=== PATIENT | female | born 1980 | race Caucasian/White ===

== ENCOUNTER 2016-08-30 15:57 | Inpatient (IN) ==
[2016-08-30] MEDS ORDERED: 0.9 % Sodium Chloride 1,000 ML IVC ONE (19:39)
[2016-08-30] MEDS ORDERED: Ondansetron 4 MG/2 ML VIAL IVP ONE (19:39)
[2016-08-30 20:00] LABS: Basophils % 0.6 %; Eosinophils # 0.1 K/mcL (0.0-0.6); Eosinophils % 2.8 %; Hematocrit 36.9 % (35.3-44.9); Hemoglobin 12.1 g/dL (11.5-15.4); Immature Granulocytes % 0.4 % (0-4); Immature Platelets 2.2 % (1.1-6.1); Lymphocytes % 41.9 %; Mean Corpuscular HGB Conc 32.8 g/dL (31.6-35.5); Mean Corpuscular Hemoglobin 31.8 pg (28.0-33.3); Mean Corpuscular Volume 96.9 fL (83.0-100.0); Mean Platelet Volume 10.1 fL (9.4-12.4); Monocytes # 0.4 K/mcL (0.0-1.3); Monocytes % 8.5 %; Neutrophils # 2.2 K/mcL (1.6-8.9); Platelet Count 181 K/mcL (140-400); Red Blood Count 3.81 M/mcL (3.82-4.97); Red Cell Distribution Width 12.6 % (11.5-14.5); Segmented Neutrophils % 45.8 %
[2016-08-30 20:13] LABS: Alanine Aminotransferase 7 Units/L (0-55); Albumin 4.1 g/dL (3.5-5.0); Albumin/Globulin Ratio 1.3 (1.1-2.2); Alkaline Phosphatase 87 Units/L (38-126); Aspartate Amino Transferase 11 Units/L (5-34); BUN/Creatinine Ratio 12 (6-26); Bilirubin,Direct 0.1 mg/dL (0.0-0.5); Bilirubin,Indirect 0.2 mg/dL (0.0-1.2); Bilirubin,Total 0.3 mg/dL (0.2-1.2); Blood Urea Nitrogen 14 mg/dL (7-20); Calcium 9.7 mg/dL (8.6-10.8); Carbon Dioxide 17 mEq/L (19-29); Chloride 107 mEq/L (98-109); Globulin 3.2 g/dL (2.4-3.5); Glucose 80 mg/dL (70-99); Lipase 11 Units/L (8-78); Osmolality,Calculated 289 (280-300); Potassium 3.6 mEq/L (3.5-4.5); Sodium 140 mEq/L (136-145); Total Protein 7.3 g/dL (6.0-8.3); eGFR For African Americans > 60 (> 60); eGFR For Non-African Americans 52 (> 60)
[2016-08-30 21:01] LABS: Bilirubin,Urine Large (Negative); Blood,Urine Negative (Negative); Clarity,Urine Cloudy (Clear); Color,Urine Yellow (Yellow); Glucose,Urine (UA) Normal (Normal); Ketones,Urine >=160 mg/dL (Negative); Leukocyte Esterase,Urine Small (Negative); Nitrite,Urine Negative (Negative); PH,Urine 5.5 pH Units (5.0-8.0); Protein,Urine 30 mg/dL (Neg-Trace); Specific Gravity,Urine 1.023 (1.010-1.025); Urobilinogen,Urine Normal (Normal)
[2016-08-30 21:03] LABS: Bacteria,Urine Moderate per hpf (None-Few); Hyaline Casts,Urine None Seen per lpf (None-Few); Squamous Epithelial Cell,Urine Many per lpf (None-Few); WBC,Urine 15-30 per hpf (0-3)
[2016-08-30] MEDS ORDERED: *HR* HYDROcodone/Acet 5/325 mg TABLET PO ONE (22:01)
[2016-08-30] MEDS ORDERED: *HR* Promethazine 25 MG/ML VIAL IVP ONE (22:01)
--- NOTE | 2016-08-30 22:05 | Emergency Department Note ---
Disposition Clinical Impression: Pyelonephritis, Left flank pain UTI (urinary tract infection) Qualifiers: Urinary tract infection type: acute cystitis Hematuria presence: without hematuria Qualified Code(s): N30.00 - Acute cystitis without hematuria Disposition: Home, Self-Care Condition: Good Instructions: Acute Pyelonephritis (ED), Dysuria (ED) Reasons to Return/Additional Instructions: Return if you have worsening pain, or are unable to eat/drink. Prescriptions: Ondansetron ODT [Zofran ODT] 4 mg SL Q6HR PRN #10 tab.rapdis PRN Reason: Nausea Ciprofloxacin [Cipro] 500 mg PO BID #14 tablet Phenazopyridine [Pyridium] 200 mg PO TID #14 tablet Referrals: June Moreno CNP [Primary Care Provider] - Forms: Work/School Release, ED Satisfaction Letter General Adult HPI - General Chief complaint: ED Headache Stated complaint: "upset stomach for 4 days" Time Seen by Provider: 08/30/16 18:45 Source: patient Limitations: no limitations Nursing Notes Reviewed: Yes Vital Signs Reviewed: Yes - History of Present Illness HPI Narrative: 35-year-old female with a past medical history of schizophrenia, bipolar, depression, anxiety. She reports that she has had a few days of suprapubic discomfort, dysuria, pain radiating into her left flank. The pain in her flank was not sudden in onset and has been gradually worsening. She does report having a fever at home and nausea. She denies any prior history of this. Radiation: flank Pain Severity: moderate Pain Scale: 8 Consistency: constant Improves with: nothing Worsens with: other (urination) Associated symptoms: Reports: denies other symptoms Treatments Prior to Arrival: none - Related Data Home Medications Medication Instructions Recorded Confirmed Albuterol Sulfate [Albuterol 2 puff IH Q4H PRN 07/28/15 01/22/16 Inhaler] EPINEPHrine [Epipen JR] 0.15 mg IJ PRN PRN 07/28/15 01/22/16 Loratadine [Claritin] 10 mg PO DAILY 07/28/15 01/22/16 Omeprazole [PriLOSEC] 20 mg PO DAILY 07/28/15 01/22/16 SUMAtriptan Succinate [Imitrex] 100 mg PO DAILY PRN 07/28/15 01/22/16 Verapamil ER (24 HR) [Calan SR] 180 mg PO HS 07/28/15 01/22/16 Acetaminophen [Tylenol] 325 mg PO Q6HR PRN 11/30/15 01/22/16 Amantadine HCl [Amantadine] 100 mg PO BID 11/30/15 01/22/16 Benztropine Mesylate 1 mg PO BID 11/30/15 01/22/16 Ergocalciferol (VITAMIN D2) 1,000 unit PO BID 11/30/15 01/22/16 [Vitamin D2] Hydrochlorothiazide 25 mg PO DAILY 11/30/15 01/22/16 Levothyroxine [Synthroid] 125 mcg PO QAM 11/30/15 01/22/16 Onabotulinumtoxina [Botox] 200 unit IM [id number] 11/30/15 01/22/16 Potassium Chloride 10 meq PO DAILY 11/30/15 01/22/16 Vitamin E 1,000 unit PO DAILY 11/30/15 01/22/16 Citalopram [CeleXA] 20 mg PO DAILY 01/22/16 01/22/16 LORazepam [Ativan] 1 mg PO QID 01/22/16 01/22/16 Ondansetron HCl [Zofran] 4 mg PO Q6H PRN 01/22/16 01/22/16 Quetiapine Fumarate [Seroquel] 600 mg PO HS 01/22/16 01/22/16 Previous Rx's Medication Instructions Recorded Tizanidine HCl [Zanaflex] 4 mg PO Q8H PRN #10 12/03/15 TraZODone 150 mg PO HS tablet 12/03/15 Gabapentin [Neurontin] 900 mg PO TID capsule 01/27/16 Bacitracin/PolymyxinB OINT 1 appl TP BID #1 tube 06/24/16 [Polysporin] HYDROcodone/Acet 5/325 mg [Converse 1 tab PO Q6H PRN #8 tab 06/24/16 5-325 mg] Ciprofloxacin [Cipro] 500 mg PO BID #14 tablet 08/30/16 Ondansetron ODT [Zofran ODT] 4 mg SL Q6HR PRN #10 tab.rapdis 08/30/16 Phenazopyridine [Pyridium] 200 mg PO TID #14 tablet 08/30/16 Allergies Allergy/AdvReac Type Severity Reaction Status Date / Time aripiprazole [From Abilify] Allergy Difficulty Verified 08/30/16 16:10 Breathing aspirin Allergy Difficulty Verified 08/30/16 16:10 Breathing ibuprofen Allergy Difficulty Verified 08/30/16 16:10 Breathing latex Allergy Difficulty Verified 08/30/16 16:10 Breathing metronidazole [From Flagyl] Allergy Difficulty Verified 08/30/16 16:10 Breathing naproxen [From Aleve] Allergy Difficulty Verified 08/30/16 16:10 Breathing Sulfa (Sulfonamide Allergy Vomiting Verified 08/30/16 16:10 Antibiotics) All systems ED: reviewed and negative except as stated. Constitutional: Reports: fever Eyes: Denies: vision change ENT ED: Denies: throat pain Cardiovascular: Denies: chest pain Respiratory: Denies: cough Gastrointestinal: Reports: abdominal pain, nausea. Denies: vomiting, diarrhea Genitourinary: Reports: dysuria Musculoskeletal: Reports: back pain (Left flank) Integumentary: Denies: rash Past Medical History - Past Medical History Medical history: Reports: arthritis, asthma, COPD, GERD, hypertension, migraine , osteoporosis, seizures, thyroid disease, syncope, other Surgical history: Reports: orthopedic, other, sinus surgery (Knee surgery. Adenoidectomy -tonsillectomy.), other Psychiatric history: Reports: anxiety, bipolar, depression, prior suicide attempt, schizophrenia, previous psychiatric hospitalization, other - Social History Smoking Status: Former smoker Smokeless Tobacco Status: No Alcohol use: Reports: none Drug use: Reports: none Physical Exam - General Limitations: no limitations General appearance: alert - Head Head exam: atraumatic - Eye Eye exam: Present: normal appearance - ENT ENT exam: normal exam, normal oropharynx - Neck Neck exam: Present: normal inspection - Respiratory Respiratory exam: Present: normal lung sounds bilaterally. Absent: respiratory distress - Cardiovascular Cardiovascular exam: Present: regular rate, normal rhythm - Abdominal Exam Abdominal exam: Present: soft, tenderness (Suprapubic.) - Extremities Exam Extremities exam: Present: normal inspection - Back Exam Back exam: Present: CVA tenderness (L) - Neurological Exam Neurological exam: Present: alert, oriented X3 - Skin Skin exam: Present: warm, dry Course Course Narrative: As her pain was not sudden in onset I do not feel that this is likely due to a kidney stone. Also most of her pain is suprapubic and she just occasionally has pain in the left flank. She does have a UTI with concern for pyelonephritis due to the left flank pain. I have given her some fluids and given her 1 g of Rocephin. I spoke at length with the patient and family on strict return instructions. She will be discharged home with oral antibiotics and symptomatic management. She is been afebrile while she has been here with mild tachycardia at 100. Her creatinine is mildly increased from baseline which is likely due to her nausea and decreased oral intake. She is nontoxic appearing. Vital Signs Temperature 97.6 F 08/30/16 16:03 Pulse Rate 100 08/30/16 16:03 Respiratory Rate 17 08/30/16 16:03 Blood Pressure 112/70 08/30/16 16:03 O2 Sat by Pulse Oximetry 96 08/30/16 16:03 Temperature 97.6 F 08/30/16 16:03 Pulse Rate 100 08/30/16 16:03 Respiratory Rate 17 08/30/16 16:03 Blood Pressure 112/70 08/30/16 16:03 O2 Sat by Pulse Oximetry 96 08/30/16 16:03 Oxygen Delivery Oxygen Delivery Room Air Medical Decision Making - Medical Records Medical records reviewed: Yes I reviewed the patient's medical records. - Lab Data Lab results reviewed: Yes I reviewed the patient's lab results. Result diagrams: 08/30/16 19:49 08/30/16 19:49 Lab Results 08/30/16 08/30/16 08/30/16 Range/Units 19:49 19:49 20:51 WBC 4.7 (4.3-11.1) K/mcL RBC 3.81 L (3.82-4.97) M/mcL Hgb 12.1 (11.5-15.4) g/dL Hct 36.9 (35.3-44.9) % MCV 96.9 (83.0-100.0) fL MCH 31.8 (28.0-33.3) pg MCHC 32.8 (31.6-35.5) g/dL RDW 12.6 (11.5-14.5) % Plt Count 181 (140-400) K/mcL MPV 10.1 (9.4-12.4) fL Immature Gran % 0.4 (0-4) % Seg Neutrophils % 45.8 % Lymphocytes % 41.9 % Monocytes % 8.5 % Eosinophils % 2.8 % Basophils % 0.6 % Neutrophils # 2.2 (1.6-8.9) K/mcL Lymphocytes # 2.0 (0.6-4.6) K/mcL Monocytes # 0.4 (0.0-1.3) K/mcL Eosinophils # 0.1 (0.0-0.6) K/mcL Basophils # 0.0 (0.0-0.2) K/mcL Immature Plt Fraction 2.2 (1.1-6.1) % Sodium 140 (136-145) mEq/L Potassium 3.6 (3.5-4.5) mEq/L Chloride 107 (98-109) mEq/L Carbon Dioxide 17 L (19-29) mEq/L BUN 14 (7-20) mg/dL Creatinine 1.17 H (0.57-1.11) mg/dL Est GFR ( Amer) > 60 (> 60) Est GFR (Non-Af Amer) 52 L (> 60) BUN/Creatinine Ratio 12 (6-26) Glucose 80 (70-99) mg/dL Calculated Osmolality 289 (280-300) Calcium 9.7 (8.6-10.8) mg/dL Total Bilirubin 0.3 (0.2-1.2) mg/dL Direct Bilirubin 0.1 (0.0-0.5) mg/dL Indirect Bilirubin 0.2 (0.0-1.2) mg/dL AST 11 (5-34) Units/L ALT 7 (0-55) Units/L Alkaline Phosphatase 87 (38-126) Units/L Serum Total Protein 7.3 (6.0-8.3) g/dL Albumin 4.1 (3.5-5.0) g/dL Globulin 3.2 (2.4-3.5) g/dL Albumin/Globulin Ratio 1.3 (1.1-2.2) Lipase 11 (8-78) Units/L Urine Color Yellow (Yellow) Urine Clarity Cloudy A (Clear) Urine pH 5.5 (5.0-8.0) pH Units Ur Specific [place] 1.023 (1.010-1.025) Urine Protein 30 H (Neg-Trace) mg/dL Urine Glucose (UA) Normal (Normal) mg/dL Urine Ketones >=160 H (Negative) mg/dL Urine Blood Negative (Negative) Urine Nitrite Negative (Negative) Urine Bilirubin Large H (Negative) Urine Urobilinogen Normal (Normal) mg/dL Ur Leukocyte Esterase Small H (Negative) Urine Microscopic RBC 5-15 H (0-3) per hpf Urine Microscopic WBC 15-30 H (0-3) per hpf Ur Squamous Epith Cells Many H (None-Few) per lpf Urine Bacteria Moderate H (None-Few) per hpf Hyaline Casts None Seen (None-Few) per lpf Ur Culture Indicated? YES A (NO) Urine Test (Negative) 08/30/16 Range/Units 20:51 WBC (4.3-11.1) K/mcL RBC (3.82-4.97) M/mcL Hgb (11.5-15.4) g/dL Hct (35.3-44.9) % MCV (83.0-100.0) fL MCH (28.0-33.3) pg MCHC (31.6-35.5) g/dL RDW (11.5-14.5) % Plt Count (140-400) K/mcL MPV (9.4-12.4) fL Immature Gran % (0-4) % Seg Neutrophils % % Lymphocytes % % Monocytes % % Eosinophils % % Basophils % % Neutrophils # (1.6-8.9) K/mcL Lymphocytes # (0.6-4.6) K/mcL Monocytes # (0.0-1.3) K/mcL Eosinophils # (0.0-0.6) K/mcL Basophils # (0.0-0.2) K/mcL Immature Plt Fraction (1.1-6.1) % Sodium (136-145) mEq/L Potassium (3.5-4.5) mEq/L Chloride (98-109) mEq/L Carbon Dioxide (19-29) mEq/L BUN (7-20) mg/dL Creatinine (0.57-1.11) mg/dL Est GFR ( Amer) (> 60) Est GFR (Non-Af Amer) (> 60) BUN/Creatinine Ratio (6-26) Glucose (70-99) mg/dL Calculated Osmolality (280-300) Calcium (8.6-10.8) mg/dL Total Bilirubin (0.2-1.2) mg/dL Direct Bilirubin (0.0-0.5) mg/dL Indirect Bilirubin (0.0-1.2) mg/dL AST (5-34) Units/L ALT (0-55) Units/L Alkaline Phosphatase (38-126) Units/L Serum Total Protein (6.0-8.3) g/dL Albumin (3.5-5.0) g/dL Globulin (2.4-3.5) g/dL Albumin/Globulin Ratio (1.1-2.2) Lipase (8-78) Units/L Urine Color (Yellow) Urine Clarity (Clear) Urine pH (5.0-8.0) pH Units Ur Specific [place] (1.010-1.025) Urine Protein (Neg-Trace) mg/dL Urine Glucose (UA) (Normal) mg/dL Urine Ketones (Negative) mg/dL Urine Blood (Negative) Urine Nitrite (Negative) Urine Bilirubin (Negative) Urine Urobilinogen (Normal) mg/dL Ur Leukocyte Esterase (Negative) Urine Microscopic RBC (0-3) per hpf Urine Microscopic WBC (0-3) per hpf Ur Squamous Epith Cells (None-Few) per lpf Urine Bacteria (None-Few) per hpf Hyaline Casts (None-Few) per lpf Ur Culture Indicated? (NO) Urine Test Negative (Negative) Attestation Statement - Attestation Attestation: I, Rajiv Rowland MD, personally performed a history and physical exam of the patient and discussed their management with the resident. I reviewed the resident's note and agree with the documented findings, medical decision making , and plan of care. 35-year-old female presents to the emergency department with a complaint of dysuria and suprapubic abdominal pain which radiates around to the left flank. Symptoms started 4 days ago. She complains of nausea but no vomiting. No fever. No gross hematuria. On examination patient is a well-developed well-nourished female in no acute distress. She is alert and oriented 3. There is no cyanosis or diaphoresis. Breath sounds are clear and equal bilaterally. Heart regular rate and rhythm. Abdomen soft with normal bowel sounds. There is mild to moderate suprapubic tenderness and mild left CVA tenderness. Labs reviewed. Urinalysis consistent with a urinary tract infection. Patient received a dose of IV Rocephin here in the emergency department and will be treated with Cipro as an outpatient.
[2016-10-07] MEDS ORDERED: *HR* LORazepam 1 MG TABLET PO PRN (19:34)
[2016-10-07] MEDS ORDERED: Acetaminophen 325 MG TABLET PO PRN (19:34)
[2016-10-07] MEDS ORDERED: traZODone 50 MG TABLET PO PRN ×2 (19:34→19:45)
[2016-10-07] MEDS ORDERED: Haloperidol Lactate 5 MG/ML VIAL IM PRN (19:34)
[2016-10-07] MEDS ORDERED: *HR* LORazepam 2 MG/ML VIAL IM PRN (19:34)
[2016-10-07] MEDS ORDERED: MOM Conc 10 ML UD.LIQ PO PRN (19:34)
[2016-10-07] MEDS ORDERED: Mag Hydrox/Al Hydrox/Simeth 30 ML UDC PO PRN (19:34)
[2016-10-07] MEDS ORDERED: Gabapentin 300 MG CAPSULE PO SCH (21:00)
[2016-10-07] MEDS: Topiramate 100 MG TABLET PO SCH (21:17)
[2016-10-07] MEDS: Gabapentin 400 MG CAPSULE PO SCH (21:17)
[2016-10-07] MEDS: Budesonide/Formoterol 160/4.5 MDI IH SCH (21:29)
[2016-10-07] MEDS: hydrOXYzine pamoate 25 MG CAPSULE PO PRN (22:02)
[2016-10-08] MEDS: Topiramate 100 MG TABLET PO SCH ×3 (09:07→21:25)
[2016-10-08] MEDS: Gabapentin 400 MG CAPSULE PO SCH ×3 (09:08→21:23)
[2016-10-08] MEDS: hydroCHLOROthiazide 25 MG TABLET PO SCH (09:08)
[2016-10-08] MEDS: Verapamil ER (24 HR) 120 MG TABLET.ER PO SCH (09:08)
[2016-10-08] MEDS: Budesonide/Formoterol 160/4.5 MDI IH SCH ×2 (09:09→21:29)
[2016-10-08] MEDS: hydrOXYzine pamoate 25 MG CAPSULE PO PRN (12:40)
--- NOTE | 2016-10-08 15:14 | Psychiatry History & Physical ---
Date of Encounter: 10/08/16 Time of Encounter: 14:40 History of Present Illness Patient Stated Chief Complaint: "I feel nervous." Medicare Admission Attestation: For traditional Medicare patients the provided hospital inpatient services are reasonable and necessary and in the case of services not specified as inpatient -only under 42 CFR 419.22 (n), that they are appropriately provided as inpatient services in accordance 42 CFR 412.3. For Critical Access Hospital the patient may reasonably be expected to be discharged or transferred to a hospital within 96 hours after admission to the Critical Access Hospital. Admitted From: Intrahospital Transfer History of Present Illness: Ms. Mendoza is a 36 year old female with schizoaffective disorder bipolar type who was initially admitted here on 1A for depression and anxiety, apparently not taking her meds as prescribed. She then became physically ill and was admitted to the medical floor. There she was treated for multiple issues including a urinary tract infection and possible pseudoseizures. She has been since transferred back to a for further psychiatric stabilization. Today she reports she feels weak. She denies any chest pain, shortness of breath, dizziness. She denies any seizure activity that she is aware of. She does report anxiety symptoms. A lot of her sedating medications were decreased while she was on the medical floor to avoid oversedation. She is not sleeping as well as she was before. She does have a history of auditory and visual hallucinations and reports that she has a total of 5 or so admissions in the past for psychiatric reasons. Today she does feel depressed and anxious. No active suicidal thoughts at the time of the interview but she does report occasional suicidal ideation intermittently throughout the day. Past Med Surg Social Fam HX - Past Medical History Medical history: arthritis, asthma, COPD, GERD, hypertension, migraine, osteoporosis, seizures, thyroid disease, syncope, other - Past Psychiatric History Psychiatric history: Reports: previous psychiatric hospitalization, other ( Schizoaffective disorder bipolar type.) Past psychiatric history details: Patient reports multiple psychiatric admissions in the past. She does have schizoaffective disorder and was seen at the [facility] until recently. The doctor she was supposed to see at the counseling center left the practice. Family psychiatric history: No Family History of Suicide: Unknown - Past Surgical History Surgical History: orthopedic, other, sinus surgery (Knee surgery. Adenoidectomy -tonsillectomy.), other - Social History Smoking Status: Former smoker Smokeless Tobacco Status: No Alcohol use: none Drug use: none - Family History Mother Daughter Family Member Ethnicity: Non- Mother Hx Family Respiratory Disorders: Yes Hx Family Cancer: Yes Medications & Allergies Albuterol Sulfate [Albuterol Inhaler] 2 puff IH Q4H PRN 07/28/15 [History] Omeprazole [PriLOSEC] 20 mg PO DAILY 07/28/15 [History] Amantadine HCl [Amantadine] 100 mg PO BID 11/30/15 [History] Hydrochlorothiazide 25 mg PO DAILY 11/30/15 [History] Levothyroxine [Synthroid] 125 mcg PO QAM 11/30/15 [History] Potassium Chloride 10 meq PO DAILY 11/30/15 [History] Vitamin E 1,000 unit PO DAILY 11/30/15 [History] Budesonide/Formoterol 160/4.5 [Symbicort 160/4.5] 2 puff IH BIDR 10/03/16 [ History] Escitalopram [Lexapro] 20 mg PO DAILY 10/03/16 [History] Gabapentin [Neurontin] 1,200 mg PO TID 10/03/16 [History] Trazodone HCl 150 - 300 mg PO HS PRN 10/03/16 [History] Verapamil ER (24 HR) [Calan SR] 120 mg PO DAILY 10/03/16 [History] ClonazePAM [Klonopin] 0.5 mg PO BID PRN #10 tablet 10/07/16 [Rx] Nitrofurantoin [Macrodantin] 50 mg PO Q6HR #28 capsule 10/07/16 [Rx] Phenazopyridine HCl [Pyridium] 200 mg PO TIDAC #15 tab 10/07/16 [Rx] Quetiapine Fumarate [Seroquel] 400 mg PO HS #28 tablet 10/07/16 [Rx] Topiramate [Topamax] 100 mg PO TID #90 tablet 10/07/16 [Rx] Allergies aripiprazole [From Abilify] Allergy (Verified 08/30/16 16:10) Difficulty Breathing aspirin Allergy (Verified 08/30/16 16:10) Difficulty Breathing ibuprofen Allergy (Verified 08/30/16 16:10) Difficulty Breathing latex Allergy (Verified 08/30/16 16:10) Difficulty Breathing metronidazole [From Flagyl] Allergy (Verified 08/30/16 16:10) Difficulty Breathing naproxen [From Aleve] Allergy (Verified 08/30/16 16:10) Difficulty Breathing Sulfa (Sulfonamide Antibiotics) Allergy (Verified 08/30/16 16:10) Vomiting Review of Systems Gastrointestinal: Reports: nausea Genitourinary female: Reports: frequency Psychiatric: Reports: depression, anxiety, abnormal sleep pattern, suicidal ideation, hopelessness, mood swings Mental Status Exam Patient orientation: Yes Person, Yes Place Level of alertness: Alert Patient appearance: Unkempt Behavior: cooperative, anxious Psychomotor activity: Slowed Eye contact: Minimal Contact Mood description: Anxious Affect description: blunted Speech pattern: Normal rate, Normal rhythm, Normal tone Speech volume: Normal Thought process: [place] Thought content: Yes Suicidal ideation ([place]) Perceptual disturbances: No Reacting to internal stimuli, No Auditory hallucinations, No Visual hallucinations Attention span: Capable of Focused Attention Memory description: Grossly Intact Patient reliability: Questionable Historian Intelligence estimate: Average Judgment: Limited Insight: Minimal Exam - Neurological Neurological exam IM: Present: CN II-XII intact Results - Vital Signs Vital signs: Temp Pulse Resp BP Pulse Ox 98.8 F 124 18 111/73 96 10/08/16 09:00 10/08/16 09:00 10/08/16 09:00 10/08/16 09:00 08/30/16 16:03 - Labs Labs: Laboratory Last Values WBC 4.7 K/mcL (4.3-11.1) 08/30/16 19:49 RBC 3.81 M/mcL (3.82-4.97) L 08/30/16 19:49 Hgb 12.1 g/dL (11.5-15.4) 08/30/16 19:49 Hct 36.9 % (35.3-44.9) 08/30/16 19:49 MCV 96.9 fL (83.0-100.0) 08/30/16 19:49 MCH 31.8 pg (28.0-33.3) 08/30/16 19:49 MCHC 32.8 g/dL (31.6-35.5) 08/30/16 19:49 RDW 12.6 % (11.5-14.5) 08/30/16 19:49 Plt Count 181 K/mcL (140-400) 08/30/16 19:49 MPV 10.1 fL (9.4-12.4) 08/30/16 19:49 Immature Gran % 0.4 % (0-4) 08/30/16 19:49 Seg Neutrophils % 45.8 % 08/30/16 19:49 Lymphocytes % 41.9 % 08/30/16 19:49 Monocytes % 8.5 % 08/30/16 19:49 Eosinophils % 2.8 % 08/30/16 19:49 Basophils % 0.6 % 08/30/16 19:49 Neutrophils # 2.2 K/mcL (1.6-8.9) 08/30/16 19:49 Lymphocytes # 2.0 K/mcL (0.6-4.6) 08/30/16 19:49 Monocytes # 0.4 K/mcL (0.0-1.3) 08/30/16 19:49 Eosinophils # 0.1 K/mcL (0.0-0.6) 08/30/16 19:49 Basophils # 0.0 K/mcL (0.0-0.2) 08/30/16 19:49 Immature Plt Fraction 2.2 % (1.1-6.1) 08/30/16 19:49 Sodium 140 mEq/L (136-145) 08/30/16 19:49 Potassium 3.6 mEq/L (3.5-4.5) 08/30/16 19:49 Chloride 107 mEq/L (98-109) 08/30/16 19:49 Carbon Dioxide 17 mEq/L (19-29) L 08/30/16 19:49 BUN 14 mg/dL (7-20) 08/30/16 19:49 Creatinine 1.17 mg/dL (0.57-1.11) H 08/30/16 19:49 Est GFR ( Amer) > 60 (> 60) 08/30/16 19:49 Est GFR (Non-Af Amer) 52 (> 60) L 08/30/16 19:49 BUN/Creatinine Ratio 12 (6-26) 08/30/16 19:49 Glucose 80 mg/dL (70-99) 08/30/16 19:49 Calculated Osmolality 289 (280-300) 08/30/16 19:49 Calcium 9.7 mg/dL (8.6-10.8) 08/30/16 19:49 Total Bilirubin 0.3 mg/dL (0.2-1.2) 08/30/16 19:49 Direct Bilirubin 0.1 mg/dL (0.0-0.5) 08/30/16 19:49 Indirect Bilirubin 0.2 mg/dL (0.0-1.2) 08/30/16 19:49 AST 11 Units/L (5-34) 08/30/16 19:49 ALT 7 Units/L (0-55) 08/30/16 19:49 Alkaline Phosphatase 87 Units/L (38-126) 08/30/16 19:49 Serum Total Protein 7.3 g/dL (6.0-8.3) 08/30/16 19:49 Albumin 4.1 g/dL (3.5-5.0) 08/30/16 19:49 Globulin 3.2 g/dL (2.4-3.5) 08/30/16 19:49 Albumin/Globulin Ratio 1.3 (1.1-2.2) 08/30/16 19:49 Lipase 11 Units/L (8-78) 08/30/16 19:49 Urine Color Yellow (Yellow) 08/30/16 20:51 Urine Clarity Cloudy (Clear) A 08/30/16 20:51 Urine pH 5.5 pH Units (5.0-8.0) 08/30/16 20:51 Ur Specific [place] 1.023 (1.010-1.025) 08/30/16 20:51 Urine Protein 30 mg/dL (Neg-Trace) H 08/30/16 20:51 Urine Glucose (UA) Normal mg/dL (Normal) 08/30/16 20:51 Urine Ketones >=160 mg/dL (Negative) H 08/30/16 20:51 Urine Blood Negative (Negative) 08/30/16 20:51 Urine Nitrite Negative (Negative) 08/30/16 20:51 Urine Bilirubin Large (Negative) H 08/30/16 20:51 Urine Urobilinogen Normal mg/dL (Normal) 08/30/16 20:51 Ur Leukocyte Esterase Small (Negative) H 08/30/16 20:51 Urine Microscopic RBC 5-15 per hpf (0-3) H 08/30/16 20:51 Urine Microscopic WBC 15-30 per hpf (0-3) H 08/30/16 20:51 Ur Squamous Epith Cells Many per lpf (None-Few) H 08/30/16 20:51 Urine Bacteria Moderate per hpf (None-Few) H 08/30/16 20:51 Hyaline Casts None Seen per lpf (None-Few) 08/30/16 20:51 Ur Culture Indicated? YES (NO) A 08/30/16 20:51 Urine Test Negative (Negative) 08/30/16 20:51 Assessment and Plan (1) Schizoaffective disorder, bipolar type Current visit: No Status: Chronic Plan: Admit inpatient for safety and stabilization, Close observation, Suicide Precautions per unit protocol, Encourage participation in unit milieu, Group Therapy, Monitor sleep, Monitor appetite Additional Plan: We will restart meds as they were changed up on the medical floor. Monitor patient in we will titrate further as needed. Encouraged patient to participate in therapeutic milieu. Previous admissions and psychiatric consultation notes reviewed today. Outpatient records reviewed as well. Patient's outpatient provider was giving patient meds including gabapentin and Klonopin for her mood and anxiety prior to her admission. Risks, benefits, side effects, alternatives discussed w/pt: Yes Patient agreeable to treatment: Yes Plans for Post Hospital Care: Home Estimated Length of Stay (Days): 3 (2) Anxiety Current visit: Yes Status: Acute Plan: Admit inpatient for safety and stabilization, Close observation, Suicide Precautions per unit protocol, Encourage participation in unit milieu, Group Therapy, Monitor sleep, Monitor appetite Additional Plan: Continue Klonopin 0.5 mg by mouth prn. Encourage positive coping strategies. Risks, benefits, side effects, alternatives discussed w/pt: Yes Patient agreeable to treatment: Yes (3) UTI (urinary tract infection) Current visit: No Status: Acute Plan: Close observation Additional Plan: Continue antibiotics for urinary tract infection. Patient reports some frequency but otherwise symptoms improving. Risks, benefits, side effects, alternatives discussed w/pt: Yes Patient agreeable to treatment: Yes Qualifiers: Urinary tract infection type: site unspecified Hematuria presence: without hematuria Qualified Code(s): N39.0 - Urinary tract infection, site not specified
[2016-10-08] MEDS ORDERED: traZODone 50 MG TABLET PO PRN (15:28)
[2016-10-08] MEDS: clonazePAM 0.5 MG TABLET PO PRN ×2 (16:44→21:24)
[2016-10-09] MEDS: Gabapentin 400 MG CAPSULE PO SCH ×3 (09:38→21:34)
[2016-10-09] MEDS: hydroCHLOROthiazide 25 MG TABLET PO SCH (09:40)
[2016-10-09] MEDS: Verapamil ER (24 HR) 120 MG TABLET.ER PO SCH (09:40)
[2016-10-09] MEDS: Topiramate 100 MG TABLET PO SCH ×3 (09:44→21:34)
[2016-10-09] MEDS: Budesonide/Formoterol 160/4.5 MDI IH SCH ×2 (11:26→21:35)
[2016-10-09] MEDS: clonazePAM 0.5 MG TABLET PO PRN (12:20)
--- NOTE | 2016-10-09 14:05 | Psychiatry Progress Note ---
Date of Encounter: 10/09/16 Time of Encounter: 13:50 Subjective Interval history: Patient seen today for follow-up. She is out in the day room for today and is interacting with staff and playing cards and with peers. She reports she is feeling a little bit better physically since we restarted the Klonopin and she is taking it twice a day. Patient was not aware that this was available for her and it has helped her tremors decreased. She is not sleeping as well since we decreased her Seroquel. She will take her second dose of Klonopin at bedtime to see if this helps. Otherwise mood is slightly improved. Her father will visit today. She denies auditory or visual hallucinations today. Review of Systems Genitourinary female: Denies: urgency, dysuria, frequency, hematuria Psychiatric: Reports: anxiety, abnormal sleep pattern, mood swings. Denies: suicidal ideation Objective: Exam Patient orientation: Yes Person, Yes Place Level of alertness: Alert Patient appearance: Unkempt Behavior: cooperative, anxious Psychomotor activity: Slowed Eye contact: Minimal Contact Mood description: Anxious Affect description: flat Speech pattern: Normal rate, Normal rhythm, Normal tone Speech volume: Normal Thought process: [place] Thought content: No Suicidal ideation, No Homicidal ideation Perceptual disturbances: No Reacting to internal stimuli, No Auditory hallucinations, No Visual hallucinations Judgment: Limited Insight: Minimal Results - Vital Signs Vital Signs: Temp Pulse Resp BP Pulse Ox 97.4 F L 76 16 98/58 96 10/09/16 08:32 10/09/16 08:32 10/09/16 08:32 10/09/16 08:32 08/30/16 16:03 Assessment and Plan (1) Schizoaffective disorder, bipolar type Current visit: No Status: Chronic Plan: Continue hospitalization, Close observation, Suicide Precautions per unit protocol, Encourage participation in unit milieu, Group Therapy, Monitor sleep, Monitor appetite Additional Plan: We will continue lower doses of medications. Patient feels that her mood is improving slowly. Risks, benefits, side effects, alternatives discussed w/pt: Yes Patient agreeable to treatment: Yes (2) Anxiety Current visit: Yes Status: Acute Plan: Continue hospitalization, Close observation, Suicide Precautions per unit protocol, Encourage participation in unit milieu, Group Therapy, Monitor sleep, Monitor appetite Additional Plan: We will schedule Klonopin 0.5 mg by mouth twice a day. This has been helping patient with tremor and also may help with her sleep. Continue to monitor. Risks, benefits, side effects, alternatives discussed w/pt: Yes Patient agreeable to treatment: Yes (3) UTI (urinary tract infection) Current visit: No Status: Acute Plan: Continue hospitalization, Close observation Additional Plan: Patient denies hesitancy or frequency today. Risks, benefits, side effects, alternatives discussed w/pt: Yes Patient agreeable to treatment: Yes Qualifiers: Urinary tract infection type: site unspecified Hematuria presence: without hematuria Qualified Code(s): N39.0 - Urinary tract infection, site not specified Consult Discharge Plan - Plan Referrals: June Moreno, RELAY TESTER HELPER [Primary Care Provider] -
[2016-10-09] MEDS: clonazePAM 0.5 MG TABLET PO SCH (21:33)
[2016-10-10] MEDS: Budesonide/Formoterol 160/4.5 MDI IH SCH ×2 (09:11→23:25)
[2016-10-10] MEDS: Gabapentin 400 MG CAPSULE PO SCH ×3 (09:12→20:51)
[2016-10-10] MEDS: hydroCHLOROthiazide 25 MG TABLET PO SCH (09:12)
[2016-10-10] MEDS: Verapamil ER (24 HR) 120 MG TABLET.ER PO SCH (09:12)
[2016-10-10] MEDS: clonazePAM 0.5 MG TABLET PO SCH ×2 (09:13→20:51)
[2016-10-10] MEDS: Topiramate 100 MG TABLET PO SCH ×3 (09:13→20:51)
--- NOTE | 2016-10-10 12:46 | Psychiatry Progress Note ---
Date of Encounter: 10/10/16 Time of Encounter: 12:47 Subjective Interval history: Patient is seen for follow-up. I reviewed recent notes for readmission and nursing notes, medications and labs. Patient is reported to do much better she is not lethargic, her sleep and appetite improved and she is not displaying excessive shaking or tremors. She is responding well to recent medication changes and able to express herself appropriately and seemed to have improved mood and affect. She denies any suicidal ideation. I discussed with his the treatment team the need to establish medication service to improve patient compliance by using prepackaged medication or pillbox. Review of Systems Psychiatric: Reports: anxiety, abnormal sleep pattern, mood swings. Denies: suicidal ideation Objective: Exam Patient orientation: Yes Person, Yes Place Level of alertness: Alert Patient appearance: Unkempt Behavior: calm, cooperative, anxious Psychomotor activity: Slowed Eye contact: Minimal Contact Mood description: Anxious Affect description: congruent with mood, constricted, flat Speech pattern: Normal rate, Normal rhythm, Normal tone, Limited Speech volume: Normal Thought process: Logical, Goal Oriented, [place] Thought content: No Suicidal ideation, No Homicidal ideation Perceptual disturbances: No Reacting to internal stimuli, No Auditory hallucinations, No Visual hallucinations Judgment: Limited Insight: Minimal Results - Vital Signs Vital Signs: Temp Pulse Resp BP Pulse Ox 97.8 F 96 18 102/67 96 10/10/16 08:44 10/10/16 08:44 10/10/16 08:44 10/10/16 08:44 08/30/16 16:03 Assessment and Plan (1) Schizoaffective disorder, bipolar type Current visit: Yes Status: Acute Plan: Continue hospitalization, Close observation, Suicide Precautions per unit protocol, Encourage participation in unit milieu, Group Therapy, Monitor sleep, Monitor appetite Risks, benefits, side effects, alternatives discussed w/pt: Yes Patient agreeable to treatment: Yes Consult Discharge Plan - Plan Referrals: Patrcie Bradley [facility] [Outside] - 11/08/16 10:30 am (The above appointment is with rory psychiatric prescriber. )
--- NOTE | 2016-10-11 09:44 | Discharge Summary ---
Date of Encounter: 10/11/16 Time of Encounter: 09:45 Diagnosis - Discharge Diagnosis (1) Schizoaffective disorder, bipolar type Status: Acute Medications - Discharge Medications Prescriptions: Amantadine [Symmetrel] 100 mg PO BID #60 capsule Phenazopyridine HCl [Pyridium] 200 mg PO TIDAC #15 tab TraZODone 200 mg PO HS PRN #60 tablet PRN Reason: Sleep Albuterol Sulfate [Albuterol Inhaler] 2 puff IH Q4H PRN 07/28/15 [History] Omeprazole [PriLOSEC] 20 mg PO DAILY 07/28/15 [History] Hydrochlorothiazide 25 mg PO DAILY 11/30/15 [History] Levothyroxine [Synthroid] 125 mcg PO QAM 11/30/15 [History] Potassium Chloride 10 meq PO DAILY 11/30/15 [History] Vitamin E 1,000 unit PO DAILY 11/30/15 [History] Budesonide/Formoterol 160/4.5 [Symbicort 160/4.5] 2 puff IH BIDR 10/03/16 [ History] Escitalopram [Lexapro] 20 mg PO DAILY 10/03/16 [History] Gabapentin [Neurontin] 1,200 mg PO TID 10/03/16 [History] Verapamil ER (24 HR) [Calan SR] 120 mg PO DAILY 10/03/16 [History] ClonazePAM [Klonopin] 0.5 mg PO BID PRN #10 tablet 10/07/16 [Rx] Nitrofurantoin [Macrodantin] 50 mg PO Q6HR #28 capsule 10/07/16 [Rx] Quetiapine Fumarate [Seroquel] 400 mg PO HS #28 tablet 10/07/16 [Rx] Topiramate [Topamax] 100 mg PO TID #90 tablet 10/07/16 [Rx] Amantadine [Symmetrel] 100 mg PO BID #60 capsule 10/11/16 [Rx] Phenazopyridine HCl [Pyridium] 200 mg PO TIDAC #15 tab 10/11/16 [Rx] TraZODone 200 mg PO HS PRN #60 tablet 10/11/16 [Rx] Allergies aripiprazole [From Tamifelipe] Allergy (Verified 08/30/16 16:10) Difficulty Breathing aspirin Allergy (Verified 08/30/16 16:10) Difficulty Breathing ibuprofen Allergy (Verified 08/30/16 16:10) Difficulty Breathing latex Allergy (Verified 08/30/16 16:10) Difficulty Breathing metronidazole [From Flagyl] Allergy (Verified 08/30/16 16:10) Difficulty Breathing naproxen [From Aleve] Allergy (Verified 08/30/16 16:10) Difficulty Breathing Sulfa (Sulfonamide Antibiotics) Allergy (Verified 08/30/16 16:10) Vomiting Provider Date of admission: 10/07/16 19:01 Primary care physician: June Moreno, Consults: 10/07/16 19:53 Consult to Hospitalist [CONS] Routine Consulting Provider: Hospitalist Saadia Reason for Consult: followup for medical while on psychiatric unit Time Notified: 20:00 Call Completed: No Discharging clinician: Lon Boss Assessment and Plan - Patient/Caregiver Discharge Instructions Activity: resume usual activities as tolerated Diet: regular diet - Follow up Plan Follow up with: Patrice Bradley [facility] [Outside] - 10/13/16 11:00 am (The above appointment is with Lauren Tapia for counseling. you will also see Cordell Agustin psychiatric prescriber, on 11/08/2016 at 10:30am. ) Functional capacity at discharge: independent ambulation Overall status at discharge: Stable Disposition: Home, Self-Care Hospital Course Hospital course: Ms. Mendoza is a 36 year old female who was readmitted to behavioral health after medical stabilization of urinary tract infection and dehydration. For details of admission please see H&P On the units she was continued on her modified medication list, she showed significant improvement in her sleep and appetite she was not presenting any tremors or shaking she participated in groups and activities and was interacting with peers and staff appropriately. She denied any suicidal ideation and she was anxious to go home. Discharge planning by school social worker was completed including arrangements to provide prepackaged daily medication to improve the patient's compliance. Prior to discharge patient was medically stable, tolerating medication without side effects and denied any suicidal thoughts. And anxious to be discharged. - Time Spent with Patient Total time spent providing and/or coordinating discharge services: Greater than 30 minutes Quality - Multiple Antipsychotics Patient discharged on 2 or more antipsychotic medications: No Procedures - Procedures Procedures: Medication Management, Crisis Stabilization, Supportive Therapy, Group Therapy, Psychoeducational Therapy Mental Status Exam - Mental Status Exam Patient orientation: Yes Person, Yes Place Level of alertness: Alert Patient appearance: Appropriate, Well Groomed Behavior: calm, cooperative, anxious Psychomotor activity: Normal Eye contact: Maintains Eye Contact Mood description: Anxious Affect description: congruent with mood, flat Speech pattern: Normal rate, Normal rhythm, Normal tone, Limited Speech Volume: Normal Thought process: Intact, Logical, Linear, Goal Oriented Thought Content: No Suicidal ideation, No Homicidal ideation Perceptual Disturbances: No Reacting to internal stimuli, No Auditory hallucinations, No Visual hallucinations Judgment: Limited Insight: Minimal
[2016-10-11 10:05] VITALS: BP 99/71
[2016-10-11] MEDS: Gabapentin 400 MG CAPSULE PO SCH (10:16)
[2016-10-11] MEDS: clonazePAM 0.5 MG TABLET PO SCH (10:16)
[2016-10-11] MEDS: Verapamil ER (24 HR) 120 MG TABLET.ER PO SCH (10:17)
[2016-10-11] MEDS: Topiramate 100 MG TABLET PO SCH (10:17)
[2016-10-11] MEDS: hydroCHLOROthiazide 25 MG TABLET PO SCH (10:17)
[2016-10-11] MEDS: Budesonide/Formoterol 160/4.5 MDI IH SCH (10:18)
== END 2016-10-11 11:25 | disposition home or self-care (01) | DRG 885 ==
LOC: EMEROO 15:57 → 1ANU 10-07 19:01
PROVIDERS: ADMIT Psychiatry & Neurology Psychiatry; ATTEND Psychiatry & Neurology Psychiatry

== ENCOUNTER 2016-10-02 12:14 | Inpatient (IN) ==
--- NOTE | 2016-10-02 12:26 | Emergency Department Note ---
START Narrative - START START: 35-year-old who squad was called for unresponsive episode. Ward states she just sat with her eyes open would say anything. On arrival here she started to talk and stated that she reported that saying that he didn't love her once her out of his house. She was tearful and stated she wanted to kill herself. Does have a history depression. Patient will be moved to room 21 to room 7 and will take over care of the patient.
[2016-10-02 12:45] LABS: Basophils % 0.5 %; Eosinophils % 0.3 %; Hematocrit 35.6 % (35.3-44.9); Hemoglobin 11.2 g/dL (11.5-15.4); Immature Granulocytes % 0.3 % (0-4); Lymphocytes # 0.5 K/mcL (0.6-4.6); Lymphocytes % 8.7 %; Mean Corpuscular HGB Conc 31.5 g/dL (31.6-35.5); Mean Corpuscular Hemoglobin 30.6 pg (28.0-33.3); Mean Corpuscular Volume 97.3 fL (83.0-100.0); Monocytes # 0.3 K/mcL (0.0-1.3); Monocytes % 5.5 %; Platelet Count 173 K/mcL (140-400); Red Blood Count 3.66 M/mcL (3.82-4.97); Red Cell Distribution Width 12.5 % (11.5-14.5); Segmented Neutrophils % 84.7 %
[2016-10-02 12:50] LABS: INR 1.2
[2016-10-02 12:53] LABS: Activated Partial Thrombo Time 31.8 Seconds (26.0-36.0)
[2016-10-02 13:00] LABS: Alanine Aminotransferase 8 Units/L (0-55); Albumin 4.2 g/dL (3.5-5.0); Albumin/Globulin Ratio 1.2 (1.1-2.2); Alkaline Phosphatase 84 Units/L (38-126); Aspartate Amino Transferase 10 Units/L (5-34); BUN/Creatinine Ratio 24 (6-26); Bilirubin,Direct 0.2 mg/dL (0.0-0.5); Bilirubin,Indirect 0.2 mg/dL (0.0-1.2); Bilirubin,Total 0.4 mg/dL (0.2-1.2); Blood Urea Nitrogen 22 mg/dL (7-20); Calcium 9.4 mg/dL (8.6-10.8); Carbon Dioxide 19 mEq/L (19-29); Chloride 109 mEq/L (98-109); Globulin 3.4 g/dL (2.4-3.5); Glucose 117 mg/dL (70-99); Osmolality,Calculated 294 (280-300); Potassium 3.8 mEq/L (3.5-4.5); Sodium 140 mEq/L (136-145); Total Protein 7.6 g/dL (6.0-8.3); eGFR For African Americans > 60 (> 60); eGFR For Non-African Americans > 60 (> 60)
[2016-10-02 13:01] LABS: Ethanol < 10 mg/dL (0-10)
[2016-10-02] MEDS ORDERED: *HR* LORazepam 2 MG/ML VIAL IM ONE ×2 (13:05→14:11)
[2016-10-02] MEDS ORDERED: *HR* LORazepam 2 MG/ML VIAL ONE ×2 (13:07→13:56)
--- NOTE | 2016-10-02 13:20 | Emergency Department Note ---
Disposition Clinical Impression: History of schizophrenia, Visual hallucinations, Auditory hallucinations, Hyperthyroidism UTI (urinary tract infection) Qualifiers: Urinary tract infection type: site unspecified Hematuria presence: without hematuria Qualified Code(s): N39.0 - Urinary tract infection, site not specified Disposition: Admitted As Inpatient Time of Disposition: 19:44 (Admitted to 1A) Psych HPI - General Chief Complaint: ED Altered Mental Status Stated Complaint: SI, visual and auditory hallucinations Time Seen by Provider: 10/02/16 12:19 Source: patient, EMS Mode of arrival: ambulatory Limitations: altered mental status Nursing Notes Reviewed: Yes Vital Signs Reviewed: Yes - History of Present Illness HPI Narrative: Patient is a 35-year-old female with past medical history of schizophrenia. She presents today due to his suicidal ideation, visual and auditory hallucinations, with family is described as "psychotic break." Tenderness except, patient admits to feelings of wanting to hurt herself but no specific plan, she also states that she is hearing voices and sees things that are not there. However, on my exam, the patient will not answer any suicidal, homicidal , visual or auditory hallucination questions. She will also not answer any review of system questions. She just keeps saying "they won't believe me." She did admit that she has been trying to "get all of her medications back on schedule. "She said that she has not been taking her gabapentin, Seroquel as directed. She is unable to Eleuterio if she is supposed to be on any other medications. Previous medication list shows that she should be taking him to appear made, trazodone, Seroquel, Klonopin, gabapentin, Cogentin, amantadine. According to most recent hospital, it was stated the patient should be taking gabapentin and Seroquel but there were no other mention of any other medications. - Related Data Home Medications Medication Instructions Recorded Confirmed Albuterol Sulfate [Albuterol 2 puff IH Q4H PRN 07/28/15 01/22/16 Inhaler] EPINEPHrine [Epipen JR] 0.15 mg IJ PRN PRN 07/28/15 01/22/16 Loratadine [Claritin] 10 mg PO DAILY 07/28/15 01/22/16 Omeprazole [PriLOSEC] 20 mg PO DAILY 07/28/15 01/22/16 SUMAtriptan Succinate [Imitrex] 100 mg PO DAILY PRN 07/28/15 01/22/16 Verapamil ER (24 HR) [Calan SR] 180 mg PO HS 07/28/15 01/22/16 Acetaminophen [Tylenol] 325 mg PO Q6HR PRN 11/30/15 01/22/16 Amantadine HCl [Amantadine] 100 mg PO BID 11/30/15 01/22/16 Benztropine Mesylate 1 mg PO BID 11/30/15 01/22/16 Ergocalciferol (VITAMIN D2) 1,000 unit PO BID 11/30/15 01/22/16 [Vitamin D2] Hydrochlorothiazide 25 mg PO DAILY 11/30/15 01/22/16 Levothyroxine [Synthroid] 125 mcg PO QAM 11/30/15 01/22/16 Onabotulinumtoxina [Botox] 200 unit IM [id number] 11/30/15 01/22/16 Potassium Chloride 10 meq PO DAILY 11/30/15 01/22/16 Vitamin E 1,000 unit PO DAILY 11/30/15 01/22/16 Citalopram [CeleXA] 20 mg PO DAILY 01/22/16 01/22/16 LORazepam [Ativan] 1 mg PO QID 01/22/16 01/22/16 Ondansetron HCl [Zofran] 4 mg PO Q6H PRN 01/22/16 01/22/16 Quetiapine Fumarate [Seroquel] 600 mg PO HS 01/22/16 01/22/16 Previous Rx's Medication Instructions Recorded Tizanidine HCl [Zanaflex] 4 mg PO Q8H PRN #10 12/03/15 TraZODone 150 mg PO HS tablet 12/03/15 Gabapentin [Neurontin] 900 mg PO TID capsule 01/27/16 Bacitracin/PolymyxinB OINT 1 appl TP BID #1 tube 06/24/16 [Polysporin] HYDROcodone/Acet 5/325 mg [[place] 1 tab PO Q6H PRN #8 tab 06/24/16 5-325 mg] Ciprofloxacin [Cipro] 500 mg PO BID #14 tablet 08/30/16 Ondansetron ODT [Zofran ODT] 4 mg SL Q6HR PRN #10 tab.rapdis 08/30/16 Phenazopyridine [Pyridium] 200 mg PO TID #14 tablet 08/30/16 Allergies Allergy/AdvReac Type Severity Reaction Status Date / Time aripiprazole [From Abilify] Allergy Difficulty Verified 08/30/16 16:10 Breathing aspirin Allergy Difficulty Verified 08/30/16 16:10 Breathing ibuprofen Allergy Difficulty Verified 08/30/16 16:10 Breathing latex Allergy Difficulty Verified 08/30/16 16:10 Breathing metronidazole [From Flagyl] Allergy Difficulty Verified 08/30/16 16:10 Breathing naproxen [From Aleve] Allergy Difficulty Verified 08/30/16 16:10 Breathing Sulfa (Sulfonamide Allergy Vomiting Verified 08/30/16 16:10 Antibiotics) All systems ED: reviewed and negative except as stated. Limitations: ROS unobtainable due to patients medical condition Past Medical History - Past Medical History Attestation: Yes The following information was validated with the patient. Medical history: Reports: arthritis, asthma, COPD, GERD, hypertension, migraine , osteoporosis, seizures, thyroid disease, syncope, other Surgical history: Reports: orthopedic, other, sinus surgery (Knee surgery. Adenoidectomy -tonsillectomy.), other Psychiatric history: Reports: anxiety, bipolar, depression, prior suicide attempt, schizophrenia, previous psychiatric hospitalization, other - Social History Smoking Status: Former smoker Smokeless Tobacco Status: No Alcohol use: Reports: none Drug use: Reports: none Physical Exam - General Limitations: no limitations General appearance: alert, anxious (and tremors in bilateral UE and LE) - Head Head exam: atraumatic, normocephalic, normal inspection - Eye Eye exam: Present: PERRL, EOMI, other (mydriasis bilaterally) - ENT ENT exam: normal exam, normal oropharynx, mucous membranes moist - Neck Neck exam: Present: normal inspection, full ROM, trachea midline - Chest Chest inspection: Present: normal inspection, symmetric chest wall rise - Respiratory Respiratory exam: Present: normal lung sounds bilaterally - Cardiovascular Cardiovascular exam: Present: regular rate, normal rhythm, normal heart sounds - Abdominal Exam Abdominal exam: Present: soft, Non-Tender. Absent: tenderness, distention, guarding, rebound, rigidity - Extremities Exam Extremities exam: Present: normal inspection, full ROM. Absent: tenderness, pedal edema - Psychiatric Psychiatric exam: Present: agitated, anxious, suicidal ideation. Absent: homicidal ideation - Skin Skin exam: Present: warm, dry, intact, normal color Course Course Narrative: On exam, the patient was tachycardic, very anxious, mydriasis of bilateral pupils. She would not answer any review of system questions. She does admit that she has not been taking her psychiatric medications as prescribed due to "try to get them back on regular schedule. Otherwise, she will not answer any additional questions. She has stated to the nursing staff that she feels suicidal, is hearing voices, seeing visual hallucinations. We will obtain psychiatric medical clearance workup and then consult one day. [place] slip has been signed and is on the chart. 16:20 Patient is hyperthyroid. Negative acetaminophen, salicylate, and ethanol. Basic labs nonconcerning. Waiting on UA and then will consult 1A. Patient has also been stephy combs and clint. 19:00 Patient had signs of UTI. Started on keflex. 1A evaluated her and admitted for further care. Vital Signs Temperature 98 F 10/02/16 12:15 Pulse Rate 104 10/02/16 12:15 Respiratory Rate 20 10/02/16 12:15 Blood Pressure 125/73 10/02/16 12:15 O2 Sat by Pulse Oximetry 99 10/02/16 12:15 Temperature 98 F 10/02/16 12:15 Pulse Rate 62 10/02/16 19:12 Respiratory Rate 18 10/02/16 19:27 Blood Pressure 118/68 10/02/16 19:27 O2 Sat by Pulse Oximetry 97 10/02/16 19:12 Oxygen Delivery Oxygen Delivery Room Air Psych - MDM Narrative Medical decision making narrative: On exam, the patient was tachycardic, very anxious, mydriasis of bilateral pupils. She would not answer any review of system questions. She does admit that she has not been taking her psychiatric medications as prescribed due to "try to get them back on regular schedule. Otherwise, she will not answer any additional questions. She has stated to the nursing staff that she feels suicidal, is hearing voices, seeing visual hallucinations. We will obtain psychiatric medical clearance workup and then consult one day. [place] slip has been signed and is on the chart. 16:20 Patient is hyperthyroid. Negative acetaminophen, salicylate, and ethanol. Basic labs nonconcerning. Waiting on UA and then will consult 1A. Patient has also been stephy mosleyryl and haldol. 19:00 Patient had signs of UTI. Started on keflex. 1A evaluated her and admitted for further care. - Lab Data Lab results reviewed: Yes I reviewed the patient's lab results. Result diagrams: 10/02/16 12:37 10/02/16 12:37 Lab Results 10/02/16 10/02/16 10/02/16 Range/Units 12:37 12:37 12:37 WBC 6.0 (4.3-11.1) K/mcL RBC 3.66 L (3.82-4.97) M/mcL Hgb 11.2 L (11.5-15.4) g/dL Hct 35.6 (35.3-44.9) % MCV 97.3 (83.0-100.0) fL MCH 30.6 (28.0-33.3) pg MCHC 31.5 L (31.6-35.5) g/dL RDW 12.5 (11.5-14.5) % Plt Count 173 (140-400) K/mcL MPV 11.0 (9.4-12.4) fL Immature Gran % 0.3 (0-4) % Seg Neutrophils % 84.7 % Lymphocytes % 8.7 % Monocytes % 5.5 % Eosinophils % 0.3 % Basophils % 0.5 % Neutrophils # 5.0 (1.6-8.9) K/mcL Lymphocytes # 0.5 L (0.6-4.6) K/mcL Monocytes # 0.3 (0.0-1.3) K/mcL Eosinophils # 0.0 (0.0-0.6) K/mcL Basophils # 0.0 (0.0-0.2) K/mcL PT 13.0 H (9.4-12.1) Seconds INR 1.2 APTT 31.8 (26.0-36.0) Seconds Sodium 140 (136-145) mEq/L Potassium 3.8 (3.5-4.5) mEq/L Chloride 109 (98-109) mEq/L Carbon Dioxide 19 (19-29) mEq/L BUN 22 H (7-20) mg/dL Creatinine 0.91 (0.57-1.11) mg/dL Est GFR ( Amer) > 60 (> 60) Est GFR (Non-Af Amer) > 60 (> 60) BUN/Creatinine Ratio 24 (6-26) Glucose 117 H (70-99) mg/dL POC Glucose (58-89) Calculated Osmolality 294 (280-300) Calcium 9.4 (8.6-10.8) mg/dL Total Bilirubin 0.4 (0.2-1.2) mg/dL Direct Bilirubin 0.2 (0.0-0.5) mg/dL Indirect Bilirubin 0.2 (0.0-1.2) mg/dL AST 10 (5-34) Units/L ALT 8 (0-55) Units/L Alkaline Phosphatase 84 (38-126) Units/L Troponin I (0-0.03) ng/mL Serum Total Protein 7.6 (6.0-8.3) g/dL Albumin 4.2 (3.5-5.0) g/dL Globulin 3.4 (2.4-3.5) g/dL Albumin/Globulin Ratio 1.2 (1.1-2.2) TSH Cancelled Free T4 (0.70-1.48) ng/dl Free T3 (1.71-3.71) pg/mL Urine Color (Yellow) Urine Clarity (Clear) Urine pH (5.0-8.0) pH Units Ur Specific Banner (1.010-1.025) Urine Protein (Neg-Trace) mg/dL Urine Glucose (UA) (Normal) mg/dL Urine Ketones (Negative) mg/dL Urine Blood (Negative) Urine Nitrite (Negative) Urine Bilirubin (Negative) Urine Urobilinogen (Normal) mg/dL Ur Leukocyte Esterase (Negative) Urine Microscopic RBC (0-3) per hpf Urine Microscopic WBC (0-3) per hpf Ur Squamous Epith Cells (None-Few) per lpf Calcium Oxalate Crystal Urine Bacteria (None-Few) per hpf Hyaline Casts (None-Few) per lpf Ur Culture Indicated? (NO) Salicylates (15-30) mg/dL Urine Opiates Screen (Wbvdyt=938) ng/mL Acetaminophen (10-30) mcg/mL Ur Barbiturates Screen (Jawfkd=137) ng/mL Ur Phencyclidine Scrn (Cutoff=25) ng/mL Ur Amphetamines Screen (Jvwfgl=7602) ng/mL U Benzodiazepines Scrn (Buvtdy=709) ng/mL Urine Cocaine Screen (Cutoff= 300) ng/mL U Marijuana (THC) Screen (Cutoff = 50) ng/mL Ethyl Alcohol < 10 (0-10) mg/dL 10/02/16 10/02/16 10/02/16 Range/Units 12:37 12:37 14:00 WBC (4.3-11.1) K/mcL RBC (3.82-4.97) M/mcL Hgb (11.5-15.4) g/dL Hct (35.3-44.9) % MCV (83.0-100.0) fL MCH (28.0-33.3) pg MCHC (31.6-35.5) g/dL RDW (11.5-14.5) % Plt Count (140-400) K/mcL MPV (9.4-12.4) fL Immature Gran % (0-4) % Seg Neutrophils % % Lymphocytes % % Monocytes % % Eosinophils % % Basophils % % Neutrophils # (1.6-8.9) K/mcL Lymphocytes # (0.6-4.6) K/mcL Monocytes # (0.0-1.3) K/mcL Eosinophils # (0.0-0.6) K/mcL Basophils # (0.0-0.2) K/mcL PT (9.4-12.1) Seconds INR APTT (26.0-36.0) Seconds Sodium (136-145) mEq/L Potassium (3.5-4.5) mEq/L Chloride (98-109) mEq/L Carbon Dioxide (19-29) mEq/L BUN (7-20) mg/dL Creatinine (0.57-1.11) mg/dL Est GFR ( Amer) (> 60) Est GFR (Non-Af Amer) (> 60) BUN/Creatinine Ratio (6-26) Glucose (70-99) mg/dL POC Glucose 97 H (58-89) Calculated Osmolality (280-300) Calcium (8.6-10.8) mg/dL Total Bilirubin (0.2-1.2) mg/dL Direct Bilirubin (0.0-0.5) mg/dL Indirect Bilirubin (0.0-1.2) mg/dL AST (5-34) Units/L ALT (0-55) Units/L Alkaline Phosphatase (38-126) Units/L Troponin I 0.01 (0-0.03) ng/mL Serum Total Protein (6.0-8.3) g/dL Albumin (3.5-5.0) g/dL Globulin (2.4-3.5) g/dL Albumin/Globulin Ratio (1.1-2.2) TSH Free T4 (0.70-1.48) ng/dl Free T3 (1.71-3.71) pg/mL Urine Color (Yellow) Urine Clarity (Clear) Urine pH (5.0-8.0) pH Units Ur Specific Banner (1.010-1.025) Urine Protein (Neg-Trace) mg/dL Urine Glucose (UA) (Normal) mg/dL Urine Ketones (Negative) mg/dL Urine Blood (Negative) Urine Nitrite (Negative) Urine Bilirubin (Negative) Urine Urobilinogen (Normal) mg/dL Ur Leukocyte Esterase (Negative) Urine Microscopic RBC (0-3) per hpf Urine Microscopic WBC (0-3) per hpf Ur Squamous Epith Cells (None-Few) per lpf Calcium Oxalate Crystal Urine Bacteria (None-Few) per hpf Hyaline Casts (None-Few) per lpf Ur Culture Indicated? (NO) Salicylates < 5.0 L (15-30) mg/dL Urine Opiates Screen (Twheto=343) ng/mL Acetaminophen < 1.0 L (10-30) mcg/mL Ur Barbiturates Screen (Uxgsll=564) ng/mL Ur Phencyclidine Scrn (Cutoff=25) ng/mL Ur Amphetamines Screen (Pfwpsk=8477) ng/mL U Benzodiazepines Scrn (Kihvbb=389) ng/mL Urine Cocaine Screen (Cutoff= 300) ng/mL U Marijuana (THC) Screen (Cutoff = 50) ng/mL Ethyl Alcohol (0-10) mg/dL 10/02/16 10/02/16 10/02/16 Range/Units 14:31 15:48 15:48 WBC (4.3-11.1) K/mcL RBC (3.82-4.97) M/mcL Hgb (11.5-15.4) g/dL Hct (35.3-44.9) % MCV (83.0-100.0) fL MCH (28.0-33.3) pg MCHC (31.6-35.5) g/dL RDW (11.5-14.5) % Plt Count (140-400) K/mcL MPV (9.4-12.4) fL Immature Gran % (0-4) % Seg Neutrophils % % Lymphocytes % % Monocytes % % Eosinophils % % Basophils % % Neutrophils # (1.6-8.9) K/mcL Lymphocytes # (0.6-4.6) K/mcL Monocytes # (0.0-1.3) K/mcL Eosinophils # (0.0-0.6) K/mcL Basophils # (0.0-0.2) K/mcL PT (9.4-12.1) Seconds INR APTT (26.0-36.0) Seconds Sodium (136-145) mEq/L Potassium (3.5-4.5) mEq/L Chloride (98-109) mEq/L Carbon Dioxide (19-29) mEq/L BUN (7-20) mg/dL Creatinine (0.57-1.11) mg/dL Est GFR ( Amer) (> 60) Est GFR (Non-Af Amer) (> 60) BUN/Creatinine Ratio (6-26) Glucose (70-99) mg/dL POC Glucose (58-89) Calculated Osmolality (280-300) Calcium (8.6-10.8) mg/dL Total Bilirubin (0.2-1.2) mg/dL Direct Bilirubin (0.0-0.5) mg/dL Indirect Bilirubin (0.0-1.2) mg/dL AST (5-34) Units/L ALT (0-55) Units/L Alkaline Phosphatase (38-126) Units/L Troponin I (0-0.03) ng/mL Serum Total Protein (6.0-8.3) g/dL Albumin (3.5-5.0) g/dL Globulin (2.4-3.5) g/dL Albumin/Globulin Ratio (1.1-2.2) TSH 0.112 L Free T4 0.93 (0.70-1.48) ng/dl Free T3 1.78 (1.71-3.71) pg/mL Urine Color Dark Yellow (Yellow) Urine Clarity Cloudy A (Clear) Urine pH 6.0 (5.0-8.0) pH Units Ur Specific [place] 1.025 (1.010-1.025) Urine Protein 30 H (Neg-Trace) mg/dL Urine Glucose (UA) Normal (Normal) mg/dL Urine Ketones 80 H (Negative) mg/dL Urine Blood Large H (Negative) Urine Nitrite Negative (Negative) Urine Bilirubin Moderate H (Negative) Urine Urobilinogen Normal (Normal) mg/dL Ur Leukocyte Esterase Moderate H (Negative) Urine Microscopic RBC 15-30 H (0-3) per hpf Urine Microscopic WBC 30-50 H (0-3) per hpf Ur Squamous Epith Cells Many H (None-Few) per lpf Calcium Oxalate Crystal Present Urine Bacteria Moderate H (None-Few) per hpf Hyaline Casts Few (None-Few) per lpf Ur Culture Indicated? YES A (NO) Salicylates (15-30) mg/dL Urine Opiates Screen Negative (Pemyyk=996) ng/mL Acetaminophen (10-30) mcg/mL Ur Barbiturates Screen Negative (Ypytxd=973) ng/mL Ur Phencyclidine Scrn Negative (Cutoff=25) ng/mL Ur Amphetamines Screen Negative (Yrmjcm=1949) ng/mL U Benzodiazepines Scrn Positive H (Hwhros=284) ng/mL Urine Cocaine Screen Negative (Cutoff= 300) ng/mL U Marijuana (THC) Screen Negative (Cutoff = 50) ng/mL Ethyl Alcohol (0-10) mg/dL - EKG Data EKG attestation: Yes I reviewed and interpreted this EKG. EKG results narrative: 10/02/2016 at 14:37. Normal sinus rhythm. Normal axis. Rate 89. IA interval 188. QRS 108. QTC 433. No acute ST elevation or depression. T-wave inversion in V2, V3. Psychiatric Medical Clearance - Medical Clearance Checklist Does the patient have a NEW psychiatric condition?: No Any abnormalities indicating possible medical illness?: No Any history of medical issues?: No Medical History: No Social History Section defined Any abnormal vital signs prior to transfer?: No Current Vitals: Last Vital Signs Temp 98 F 10/02/16 12:15 Pulse 62 10/02/16 19:12 Resp 18 10/02/16 19:27 BP 118/68 10/02/16 19:27 Pulse Ox 97 10/02/16 19:12 Is the patient intoxicated or cognitively impaired?: No Psychiatric Lab Panel: Drug Levels and Toxicity 10/02/16 10/02/16 10/02/16 12:37 12:37 15:48 Urine Opiates Screen Negative Acetaminophen < 1.0 L Ur Barbiturates Screen Negative Ur Phencyclidine Scrn Negative Ur Amphetamines Screen Negative U Benzodiazepines Scrn Positive H Urine Cocaine Screen Negative U Marijuana (THC) Screen Negative Ethyl Alcohol < 10 Any abnormalities on the physical exam?: No Any abnormal labs?: Yes (TSH and UA) Abnormal Labs: Abnormal lab results RBC 3.66 M/mcL (3.82-4.97) L 10/02/16 12:37 Hgb 11.2 g/dL (11.5-15.4) L 10/02/16 12:37 MCHC 31.5 g/dL (31.6-35.5) L 10/02/16 12:37 Lymphocytes # 0.5 K/mcL (0.6-4.6) L 10/02/16 12:37 PT 13.0 Seconds (9.4-12.1) H 10/02/16 12:37 BUN 22 mg/dL (7-20) H 10/02/16 12:37 Glucose 117 mg/dL (70-99) H 10/02/16 12:37 POC Glucose 97 (58-89) H 10/02/16 14:00 TSH 0.112 mcIU/mL (0.350-4.840) L 10/02/16 14:31 Urine Clarity Cloudy (Clear) A 10/02/16 15:48 Urine Protein 30 mg/dL (Neg-Trace) H 10/02/16 15:48 Urine Ketones 80 mg/dL (Negative) H 10/02/16 15:48 Urine Blood Large (Negative) H 10/02/16 15:48 Urine Bilirubin Moderate (Negative) H 10/02/16 15:48 Ur Leukocyte Esterase Moderate (Negative) H 10/02/16 15:48 Urine Microscopic RBC 15-30 per hpf (0-3) H 10/02/16 15:48 Urine Microscopic WBC 30-50 per hpf (0-3) H 10/02/16 15:48 Ur Squamous Epith Cells Many per lpf (None-Few) H 10/02/16 15:48 Urine Bacteria Moderate per hpf (None-Few) H 10/02/16 15:48 Ur Culture Indicated? YES (NO) A 10/02/16 15:48 Salicylates < 5.0 mg/dL (15-30) L 10/02/16 12:37 Acetaminophen < 1.0 mcg/mL (10-30) L 10/02/16 12:37 U Benzodiazepines Scrn Positive ng/mL (Reidpk=277) H 10/02/16 15:48 Does the patient require durable medical equiptment?: No Is the patient ambulatory?: Yes Is the patient a fall risk?: No Has the patient been medically cleared?: No Any acute medical condition require Tx prior to transfer?: No
[2016-10-02 13:50] LABS: Acetaminophen < 1.0 mcg/mL (10-30); Salicylate < 5.0 mg/dL (15-30)
[2016-10-02] MEDS ORDERED: Haloperidol Lactate 5 MG/ML VIAL IM ONE (14:00)
[2016-10-02] MEDS ORDERED: Haloperidol Lactate 5 MG/ML VIAL ONE (14:01)
[2016-10-02 15:12] LABS: Triiodothyronine (T3) Free 1.78 pg/mL (1.71-3.71)
[2016-10-02 15:18] LABS: Thyroid Stimulating Hormone 0.112 mcIU/mL (0.350-4.840)
[2016-10-02 16:20] LABS: Bilirubin,Urine Moderate (Negative); Blood,Urine Large (Negative); Clarity,Urine Cloudy (Clear); Color,Urine Dark Yellow (Yellow); Glucose,Urine (UA) Normal (Normal); Ketones,Urine 80 mg/dL (Negative); Leukocyte Esterase,Urine Moderate (Negative); Nitrite,Urine Negative (Negative); Protein,Urine 30 mg/dL (Neg-Trace); Specific Gravity,Urine 1.025 (1.010-1.025); Urobilinogen,Urine Normal (Normal)
[2016-10-02 16:22] LABS: Bacteria,Urine Moderate per hpf (None-Few); Hyaline Casts,Urine Few per lpf (None-Few); RBC,Urine 15-30 per hpf (0-3); Squamous Epithelial Cell,Urine Many per lpf (None-Few); WBC,Urine 30-50 per hpf (0-3)
[2016-10-02 16:27] LABS: Amphetamine Screen,Urine Negative ng/mL (Cutoff=1000); Barbiturate Screen,Urine Negative ng/mL (Cutoff=200); Benzodiazepines Screen,Urine Positive ng/mL (Cutoff=200); Cannabinoid Screen,Urine Negative ng/mL (Cutoff = 50); Cocaine Screen,Urine Negative ng/mL (Cutoff= 300); Opiate Screen,Urine Negative ng/mL (Cutoff=300); Phencyclidine Screen,Urine Negative ng/mL (Cutoff=25)
[2016-10-02 16:36] LABS: Calcium Oxalate Crystals,Urine Present
[2016-10-02] MEDS ORDERED: cephALEXin 250 MG CAPSULE PO ONE (17:01)
[2016-10-02] MEDS ORDERED: Acetaminophen 325 MG TABLET PO PRN (21:14)
[2016-10-02] MEDS ORDERED: Haloperidol Lactate 5 MG/ML VIAL IM PRN (21:14)
[2016-10-02] MEDS ORDERED: Mag Hydrox/Al Hydrox/Simeth 30 ML UDC PO PRN (21:14)
[2016-10-02] MEDS ORDERED: MOM Conc 10 ML UD.LIQ PO PRN (21:14)
[2016-10-02] MEDS ORDERED: *HR* LORazepam 1 MG TABLET PO PRN (21:14)
[2016-10-02] MEDS ORDERED: *HR* LORazepam 2 MG/ML VIAL IM PRN (21:14)
[2016-10-02] MEDS: clonazePAM 0.5 MG TABLET PO SCH (22:10)
[2016-10-03] MEDS ORDERED: cephALEXin 500 MG CAPSULE PO SCH (09:00)
[2016-10-03] MEDS: clonazePAM 0.5 MG TABLET PO SCH ×2 (09:17→13:01)
--- NOTE | 2016-10-03 10:20 | Electrocardiograph Report ---
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
--- NOTE | 2016-10-03 11:14 | Psychiatry History & Physical ---
Date of Encounter: 10/03/16 Time of Encounter: 11:12 History of Present Illness Patient Stated Chief Complaint: Suicidal ideation Medicare Admission Attestation: For traditional Medicare patients the provided hospital inpatient services are reasonable and necessary and in the case of services not specified as inpatient -only under 42 CFR 419.22 (n), that they are appropriately provided as inpatient services in accordance 42 CFR 412.3. For [facility] the patient may reasonably be expected to be discharged or transferred to a hospital within 96 hours after admission to the Critical [facility]. Admitted From: Emergency Dept History of Present Illness: Ms. Mendoza is a 35 year old female admitted from the emergency room for evaluation and treatment of suicidal ideation and exacerbation of schizoaffective disorder bipolar type. Patient reports that she has not been taken medication as prescribed she was feeling increasingly depressed and stressed out by family issues and had thoughts of suicide. Patient had long psychiatric history since age 13 and multiple hospitalizations for treatment of schizoaffective disorder bipolar. Patient also was followed up as an outpatient but recently her psychiatrist moved in her care is being transferred to one is her provider. Patient also had significant medical history of obesity and hypothyroidism and Parkinson like tremors that is followed by neurologist and the migraine headaches. Past Med Surg Social Fam HX - Past Medical History Medical history: arthritis, asthma, COPD, GERD, hypertension, migraine, osteoporosis, seizures, thyroid disease, syncope, other - Past Psychiatric History Psychiatric history: Reports: bipolar, depression, prior suicide attempt, schizophrenia, previous psychiatric hospitalization Past psychiatric history details: several psychiatric hospitalization and multiple suicide attempts by overdose on medication. Family psychiatric history: Unknown Family History of Suicide: Unknown - Past Surgical History Surgical History: orthopedic, other, sinus surgery (Knee surgery. Adenoidectomy -tonsillectomy.), other - Social History Smoking Status: Former smoker Smokeless Tobacco Status: No Alcohol use: none Drug use: none - Family History Mother Daughter Family Member Ethnicity: Non- Mother Hx Family Respiratory Disorders: Yes Hx Family Cancer: Yes Medications & Allergies Albuterol Sulfate [Albuterol Inhaler] 2 puff IH Q4H PRN 07/28/15 [History] Omeprazole [PriLOSEC] 20 mg PO DAILY 07/28/15 [History] Amantadine HCl [Amantadine] 100 mg PO BID 11/30/15 [History] Hydrochlorothiazide 25 mg PO DAILY 11/30/15 [History] Levothyroxine [Synthroid] 125 mcg PO QAM 11/30/15 [History] Potassium Chloride 10 meq PO DAILY 11/30/15 [History] Vitamin E 1,000 unit PO DAILY 11/30/15 [History] Ondansetron ODT [Zofran ODT] 4 mg SL Q6HR PRN #10 tab.rapdis 08/30/16 [Rx] Budesonide/Formoterol 160/4.5 [Symbicort 160/4.5] 2 puff IH BIDR 10/03/16 [ History] ClonazePAM [Klonopin] 1 mg PO QID PRN 10/03/16 [History] Escitalopram [Lexapro] 20 mg PO DAILY 10/03/16 [History] Gabapentin [Neurontin] 1,200 mg PO TID 10/03/16 [History] Quetiapine Fumarate [Seroquel] 800 mg PO DAILY 10/03/16 [History] Topiramate [Topiramate] 200 mg PO TID 10/03/16 [History] Trazodone HCl 150 - 300 mg PO HS PRN 10/03/16 [History] Verapamil ER (24 HR) [Calan SR] 120 mg PO DAILY 10/03/16 [History] Allergies aripiprazole [From Abilify] Allergy (Verified 08/30/16 16:10) Difficulty Breathing aspirin Allergy (Verified 08/30/16 16:10) Difficulty Breathing ibuprofen Allergy (Verified 08/30/16 16:10) Difficulty Breathing latex Allergy (Verified 08/30/16 16:10) Difficulty Breathing metronidazole [From Flagyl] Allergy (Verified 08/30/16 16:10) Difficulty Breathing naproxen [From Aleve] Allergy (Verified 08/30/16 16:10) Difficulty Breathing Sulfa (Sulfonamide Antibiotics) Allergy (Verified 08/30/16 16:10) Vomiting Review of Systems Psychiatric: Reports: depression, anxiety, suicidal ideation, auditory hallucinations, hopelessness Mental Status Exam Patient orientation: Yes Person, Yes Time, Yes Place Level of alertness: Alert Patient appearance: Appropriate, Well Groomed Behavior: calm, cooperative, anxious, withdrawn Psychomotor activity: Slowed Eye contact: Minimal Contact Mood description: Depressed, Anxious, Other (Lethargic) Affect description: congruent with mood, labile, anxious Speech pattern: Normal rate, Normal rhythm, Normal tone, Impoverished Speech volume: Soft/Quiet Thought process: Linear, Goal Oriented Thought content: Yes Suicidal ideation, No Homicidal ideation, No Overt delusions Perceptual disturbances: Yes Auditory hallucinations, No Visual hallucinations Attention span: Unable to Focus Memory description: Recent Impaired, Remote Impaired Patient reliability: Reliable Historian Intelligence estimate: Average Judgment: Limited Insight: Partial Results - Vital Signs Vital signs: Temp Pulse Resp BP Pulse Ox 98.8 F 105 20 110/60 97 10/03/16 08:00 10/03/16 08:00 10/03/16 08:00 10/03/16 08:00 10/02/16 19:12 - Labs Labs: Laboratory Last Values WBC 6.0 K/mcL (4.3-11.1) 10/02/16 12:37 RBC 3.66 M/mcL (3.82-4.97) L 10/02/16 12:37 Hgb 11.2 g/dL (11.5-15.4) L 10/02/16 12:37 Hct 35.6 % (35.3-44.9) 10/02/16 12:37 MCV 97.3 fL (83.0-100.0) 10/02/16 12:37 MCH 30.6 pg (28.0-33.3) 10/02/16 12:37 MCHC 31.5 g/dL (31.6-35.5) L 10/02/16 12:37 RDW 12.5 % (11.5-14.5) 10/02/16 12:37 Plt Count 173 K/mcL (140-400) 10/02/16 12:37 MPV 11.0 fL (9.4-12.4) 10/02/16 12:37 Immature Gran % 0.3 % (0-4) 10/02/16 12:37 Seg Neutrophils % 84.7 % 10/02/16 12:37 Lymphocytes % 8.7 % 10/02/16 12:37 Monocytes % 5.5 % 10/02/16 12:37 Eosinophils % 0.3 % 10/02/16 12:37 Basophils % 0.5 % 10/02/16 12:37 Neutrophils # 5.0 K/mcL (1.6-8.9) 10/02/16 12:37 Lymphocytes # 0.5 K/mcL (0.6-4.6) L 10/02/16 12:37 Monocytes # 0.3 K/mcL (0.0-1.3) 10/02/16 12:37 Eosinophils # 0.0 K/mcL (0.0-0.6) 10/02/16 12:37 Basophils # 0.0 K/mcL (0.0-0.2) 10/02/16 12:37 PT 13.0 Seconds (9.4-12.1) H 10/02/16 12:37 INR 1.2 10/02/16 12:37 APTT 31.8 Seconds (26.0-36.0) 10/02/16 12:37 Sodium 140 mEq/L (136-145) 10/02/16 12:37 Potassium 3.8 mEq/L (3.5-4.5) 10/02/16 12:37 Chloride 109 mEq/L (98-109) 10/02/16 12:37 Carbon Dioxide 19 mEq/L (19-29) 10/02/16 12:37 BUN 22 mg/dL (7-20) H 10/02/16 12:37 Creatinine 0.91 mg/dL (0.57-1.11) 10/02/16 12:37 Est GFR ( Amer) > 60 (> 60) 10/02/16 12:37 Est GFR (Non-Af Amer) > 60 (> 60) 10/02/16 12:37 BUN/Creatinine Ratio 24 (6-26) 10/02/16 12:37 Glucose 117 mg/dL (70-99) H 10/02/16 12:37 POC Glucose 97 (58-89) H 10/02/16 14:00 Calculated Osmolality 294 (280-300) 10/02/16 12:37 Calcium 9.4 mg/dL (8.6-10.8) 10/02/16 12:37 Total Bilirubin 0.4 mg/dL (0.2-1.2) 10/02/16 12:37 Direct Bilirubin 0.2 mg/dL (0.0-0.5) 10/02/16 12:37 Indirect Bilirubin 0.2 mg/dL (0.0-1.2) 10/02/16 12:37 AST 10 Units/L (5-34) 10/02/16 12:37 ALT 8 Units/L (0-55) 10/02/16 12:37 Alkaline Phosphatase 84 Units/L (38-126) 10/02/16 12:37 Troponin I 0.01 ng/mL (0-0.03) 10/02/16 12:37 Serum Total Protein 7.6 g/dL (6.0-8.3) 10/02/16 12:37 Albumin 4.2 g/dL (3.5-5.0) 10/02/16 12:37 Globulin 3.4 g/dL (2.4-3.5) 10/02/16 12:37 Albumin/Globulin Ratio 1.2 (1.1-2.2) 10/02/16 12:37 TSH 0.112 mcIU/mL (0.350-4.840) L 10/02/16 14:31 Free T4 0.93 ng/dl (0.70-1.48) 10/02/16 14:31 Free T3 1.78 pg/mL (1.71-3.71) 10/02/16 14:31 Urine Color Dark Yellow (Yellow) 10/02/16 15:48 Urine Clarity Cloudy (Clear) A 10/02/16 15:48 Urine pH 6.0 pH Units (5.0-8.0) 10/02/16 15:48 Ur Specific [place] 1.025 (1.010-1.025) 10/02/16 15:48 Urine Protein 30 mg/dL (Neg-Trace) H 10/02/16 15:48 Urine Glucose (UA) Normal mg/dL (Normal) 10/02/16 15:48 Urine Ketones 80 mg/dL (Negative) H 10/02/16 15:48 Urine Blood Large (Negative) H 10/02/16 15:48 Urine Nitrite Negative (Negative) 10/02/16 15:48 Urine Bilirubin Moderate (Negative) H 10/02/16 15:48 Urine Urobilinogen Normal mg/dL (Normal) 10/02/16 15:48 Ur Leukocyte Esterase Moderate (Negative) H 10/02/16 15:48 Urine Microscopic RBC 15-30 per hpf (0-3) H 10/02/16 15:48 Urine Microscopic WBC 30-50 per hpf (0-3) H 10/02/16 15:48 Ur Squamous Epith Cells Many per lpf (None-Few) H 10/02/16 15:48 Calcium Oxalate Crystal Present 10/02/16 15:48 Urine Bacteria Moderate per hpf (None-Few) H 10/02/16 15:48 Hyaline Casts Few per lpf (None-Few) 10/02/16 15:48 Ur Culture Indicated? YES (NO) A 10/02/16 15:48 Salicylates < 5.0 mg/dL (15-30) L 10/02/16 12:37 Urine Opiates Screen Negative ng/mL (Flriaa=815) 10/02/16 15:48 Acetaminophen < 1.0 mcg/mL (10-30) L 10/02/16 12:37 Ur Barbiturates Screen Negative ng/mL (Hjqwsq=200) 10/02/16 15:48 Ur Phencyclidine Scrn Negative ng/mL (Cutoff=25) 10/02/16 15:48 Ur Amphetamines Screen Negative ng/mL (Mjkryw=7113) 10/02/16 15:48 U Benzodiazepines Scrn Positive ng/mL (Chtyrh=200) H 10/02/16 15:48 Urine Cocaine Screen Negative ng/mL (Cutoff= 300) 10/02/16 15:48 U Marijuana (THC) Screen Negative ng/mL (Cutoff = 50) 10/02/16 15:48 Ethyl Alcohol < 10 mg/dL (0-10) 10/02/16 12:37 Assessment and Plan (1) Schizoaffective disorder, bipolar type Status: Acute Plan: Admit inpatient for safety and stabilization, Close observation, Suicide Precautions per unit protocol, Encourage participation in unit milieu, Group Therapy, Monitor sleep, Monitor appetite Additional Plan: Patient had a blood culture that was ordered in the emergency room and came back positive. Will order medical consultation to evaluate patient for medical treatments as appropriate. Risks, benefits, side effects, alternatives discussed w/pt: Yes Patient agreeable to treatment: Yes
[2016-10-03 11:15] LABS: Acinetobacter baumannii by PCR Not Detected (Not Detect); Candida albicans by PCR Not Detected (Not Detect); Candida glabrata by PCR Not Detected (Not Detect); Candida krusei by PCR Not Detected (Not Detect); Candida parapsilosis by PCR Not Detected (Not Detect); Candida tropicalis by PCR Not Detected (Not Detect); Enterococcus by PCR Not Detected (Not Detect); Escherichia coli by PCR Not Detected (Not Detect); Klebsiella oxytoca by PCR Not Detected (Not Detect); Klebsiella pneumoniae by PCR Not Detected (Not Detect); Pseudomonas aeruginosa by PCR Not Detected (Not Detect); Serratia marcescens by PCR Not Detected (Not Detect); Staphylococcus aureus by PCR Not Detected (Not Detect); Streptococcus agalactiae(B)PCR Not Detected (Not Detect); Streptococcus by PCR Not Detected (Not Detect); Streptococcus pneumoniae PCR Not Detected (Not Detect); Streptococcus pyogenes (A) PCR Not Detected (Not Detect); blaKPC Carbapenem-Resist Gene Not Detected (Not Detect); mecA Methicillin-Resist Gene ***DETECTED*** (Not Detect); vanA/B Vancomycin-Resist Genes Not Detected (Not Detect)
[2016-10-03 13:04] VITALS: BP 109/75
--- NOTE | 2016-10-03 14:47 | Psychiatry Progress Note ---
Date of Encounter: 10/03/16 Time of Encounter: 13:00 Subjective Interval history: Patient had a positive blood culture results, medical consultation was requested. Dr. Lee evaluated the patient and will transfer the patient to medical floor for further treatment. We appreciate his help. Results - Vital Signs Vital Signs: Temp Pulse Resp BP Pulse Ox 99 F 105 18 109/75 97 10/03/16 12:00 10/03/16 12:00 10/03/16 12:00 10/03/16 12:00 10/02/16 19:12 - Labs Labs: Laboratory Results - last 24 hr 10/03/16 14:02 Lactic Acid 1.6 Assessment and Plan (1) Positive blood culture Status: Acute Plan: Continue hospitalization, Close observation, Suicide Precautions per unit protocol, Encourage participation in unit milieu, Group Therapy, Monitor sleep, Monitor appetite Consult Discharge Plan - Plan Instructions: Urinary Tract Infection in Women (DC), Mood Disorders (DC) Referrals: Patrice Malin [facility] [Outside] - 11/08/16 10:30 am (The above appointment is with [facility] psychiatric prescriber. )
--- NOTE | 2016-10-14 21:49 | Emergency Department Note ---
START Narrative - START START: I examined this patient and my medical decision-making was reviewed with the IRON SETTER/PA/Advanced Practice Nurse/Resident Physician. I agree with the documented findings, disposition and treatment plan as described except to the extent set forth below. 35 yo female BIB EMS with concern of SI. Pt states she is having thoughts of hurting herself but does not have a specific plan. +auditory and command hallucinations that are not commanding in nature. Not taking medications as directed. Pt medically cleared although she is possibly mildly hyperthyroid. Possible UTI, started on Keflex. Pt seen by 1A and admitted to the hospital for further care.
== END 2016-10-03 15:50 | disposition other institution (70) | DRG 885 ==
LOC: EMEROO 12:14 → SUATTDRO 19:21 → 1ANU 19:21
PROVIDERS: ADMIT Psychiatry & Neurology Psychiatry; ATTEND Psychiatry & Neurology Psychiatry

== ENCOUNTER 2016-10-03 13:56 | Inpatient (IN) ==
[2016-10-03] MEDS ORDERED: Naloxone 0.4 MG/ML INJ IVP PRN (14:35)
[2016-10-03] MEDS ORDERED: Acetaminophen 325 MG TABLET PO PRN (14:35)
--- NOTE | 2016-10-03 15:11 | Internal Med History&Physical ---
Date of Encounter: 10/03/16 Time of Encounter: 13:30 Assessment and Plan (1) UTI (urinary tract infection) Status: Acute Will treat with IV antibiotics. Follow culture results. Currently growing gram -negative rods. IV hydration as patient appears to be dehydrated. Will repeat CBC. Qualifiers: Urinary tract infection type: acute cystitis Hematuria presence: without hematuria Qualified Code(s): N30.00 - Acute cystitis without hematuria (2) Positive blood culture Status: Acute One set of blood culture positive for MRSA. Most likely contaminant. We will repeat blood cultures. Patient does not have any signs of sepsis at this time. (3) Hyperthyroidism Status: Chronic Patient not on any medications for this. TSH is 0.112 but the free T3 and free T4 are within normal limits. (4) Schizophrenia Status: Chronic We will consult psychiatry for help in managing this condition. Patient was on Cogentin, Haldol and Ativan in the psychiatric unit and these medications were discontinued. Qualifiers: Schizophrenia type: unspecified Qualified Code(s): F20.9 - Schizophrenia, unspecified (5) Dehydration Status: Resolved Internal Medicine - H&P: HPI Chief complaint: Weakness, abdominal discomfort Admitted From: Intrahospital Transfer Plans for Post Hospital Care: Transfer Psych Facility History of present illness: Ms. Mendoza is a 35 year old female patient with history of schizophrenia, hypertension, asthma, hypothyroidism currently admitted to psychiatric unit complaining of abdominal discomfort, generalized weakness, dysuria and rigors. Her symptoms have been going on for some time and yesterday when she came to the ER she was given antibiotics for possible urinary tract infection. Blood cultures were also drawn then and one set was positive for MRSA. Patient had been brought nonresponsive to the ER yesterday but was waking up and was having suicidal thoughts while she was there. She was then admitted to psychiatric unit for depression and schizophrenia. She denies any fever. No cough or shortness of breath. No chest pain. She does complain of a dry mouth. Past Med Surg Social Fam HX - Past Medical History Medical history: arthritis, asthma, COPD, GERD, hypertension, migraine, osteoporosis, seizures, thyroid disease, syncope, other Psychiatric history: anxiety, bipolar, depression, prior suicide attempt, schizophrenia, previous psychiatric hospitalization, other - Past Surgical History Surgical History: orthopedic, other, sinus surgery (Knee surgery. Adenoidectomy -tonsillectomy.), other - Social History Smoking Status: Former smoker Smokeless Tobacco Status: No Alcohol use: none Drug use: none - Family History Mother Daughter Family Member Ethnicity: Non- Mother Hx Family Respiratory Disorders: Yes Hx Family Cancer: Yes Internal Medicine - H&P: Meds Albuterol Sulfate [Albuterol Inhaler] 2 puff IH Q4H PRN 07/28/15 [History] EPINEPHrine [Epipen JR] 0.15 mg IJ PRN PRN 07/28/15 [History] Loratadine [Claritin] 10 mg PO DAILY 07/28/15 [History] Omeprazole [PriLOSEC] 20 mg PO DAILY 07/28/15 [History] SUMAtriptan Succinate [Imitrex] 100 mg PO DAILY PRN 07/28/15 [History] Verapamil ER (24 HR) [Calan SR] 180 mg PO HS 07/28/15 [History] Acetaminophen [Tylenol] 325 mg PO Q6HR PRN 11/30/15 [History] Amantadine HCl [Amantadine] 100 mg PO BID 11/30/15 [History] Benztropine Mesylate 1 mg PO BID 11/30/15 [History] Ergocalciferol (VITAMIN D2) [Vitamin D2] 1,000 unit PO BID 11/30/15 [History] Hydrochlorothiazide 25 mg PO DAILY 11/30/15 [History] Levothyroxine [Synthroid] 125 mcg PO QAM 11/30/15 [History] Onabotulinumtoxina [Botox] 200 unit IM [id number] 11/30/15 [History] Potassium Chloride 10 meq PO DAILY 11/30/15 [History] Vitamin E 1,000 unit PO DAILY 11/30/15 [History] Tizanidine HCl [Zanaflex] 4 mg PO Q8H PRN #10 12/03/15 [Rx] TraZODone 150 mg PO HS tablet 12/03/15 [Rx] Citalopram [CeleXA] 20 mg PO DAILY 01/22/16 [History] LORazepam [Ativan] 1 mg PO QID 01/22/16 [History] Ondansetron HCl [Zofran] 4 mg PO Q6H PRN 01/22/16 [History] Quetiapine Fumarate [Seroquel] 600 mg PO HS 01/22/16 [History] Gabapentin [Neurontin] 900 mg PO TID capsule 01/27/16 [Rx] Bacitracin/PolymyxinB OINT [Polysporin] 1 appl TP BID #1 tube 06/24/16 [Rx] HYDROcodone/Acet 5/325 mg [[place] 5-325 mg] 1 tab PO Q6H PRN #8 tab 06/24/16 [Rx] Ciprofloxacin [Cipro] 500 mg PO BID #14 tablet 08/30/16 [Rx] Ondansetron ODT [Zofran ODT] 4 mg SL Q6HR PRN #10 tab.rapdis 08/30/16 [Rx] Phenazopyridine [Pyridium] 200 mg PO TID #14 tablet 08/30/16 [Rx] Allergies aripiprazole [From Abilify] Allergy (Verified 08/30/16 16:10) Difficulty Breathing aspirin Allergy (Verified 08/30/16 16:10) Difficulty Breathing ibuprofen Allergy (Verified 08/30/16 16:10) Difficulty Breathing latex Allergy (Verified 08/30/16 16:10) Difficulty Breathing metronidazole [From Flagyl] Allergy (Verified 08/30/16 16:10) Difficulty Breathing naproxen [From Aleve] Allergy (Verified 08/30/16 16:10) Difficulty Breathing Sulfa (Sulfonamide Antibiotics) Allergy (Verified 08/30/16 16:10) Vomiting All Systems PM: A 10-system review of systems was performed and is negative for pertinent findings except as documented above in the HPI. - Constitutional Constitutional: lethargy, malaise, no chills, no fever(s), no night sweats - EENT Eyes: no change in vision, no discharge, no pain, no photophobia Ears: no ear discharge, no ear pain, no tinnitus Nose, mouth and throat: dry mouth, no dysphagia, no nasal discharge, no neck pain, no sore throat - Cardiovascular Cardiovascular ROS IM: no chest pain, no diaphoresis, no dyspnea, no lightheadedness, no palpitations, no syncope - Respiratory Respiratory: no cough, no dyspnea, no wheezing, no excessive phlegm production - Gastrointestinal Gastrointestinal: no abdominal pain, no diarrhea, no hematemesis, no hematochezia, no melena, no nausea, no vomiting - Genitourinary Genitourinary: no change in urinary stream, no dysuria, no flank pain, no hematuria - Musculoskeletal Musculoskeletal ROS IM: no numbness, no tingling - Integumentary Integumentary IM: no rash, no unusual bruising - Neurological Neurological ROS: no confusion, no convulsions, no focal weakness, no numbness, no tingling, no tremor(s) - Hematologic/Lymphatic Hematologic/Lymphatic: no easy bruising - Constitutional General appearance: Present: cooperative, mild distress, A&O X 3, answers questions appropriately - ENT ENT exam: Present: mucous membranes dry - Respiratory Respiratory exam: Present: CTAB. Absent: accessory muscle use, rales, rhonchi, wheezes - Cardiovascular Cardiovascular exam: Present: RRR, +S1, +S2, tachycardia. Absent: diastolic murmur, gallop, rubs, systolic murmur - GI/Abdominal GI/Abdominal exam: Present: normal bowel sounds, soft, no peritoneal signs. Absent: distended, tenderness - Extremities Exam Extremities exam: Present: warm, radial pulses palpable and symetrical. Absent : calf tenderness, cyanotic, pedal edema - Neurological Exam Neurological exam: Present: no focal deficits. Absent: facial droop, speech deficit Additional comments: Resting tremor present - Psychiatric Psychiatric exam: Present: anxious - Skin Skin exam: Present: dry, intact Internal Med - H&P Results - Labs Labs: Blood work done yesterday showed hemoglobin of 11.2, platelets of 173, WBC count of 6. Urine showed 30-50 WBC. Blood culture drawn yesterday was positive for gram-positive cocci with MR gene. Urine culture positive for gram- negative rods - Attending Attestation This document has been at least partially created by [employer] recognition technology by Dr. Crowder. Errors in grammar, wording or other phrases may exist. If errors are found after the documentation is signed, they will be addressed individually in the addendum section of this document when appropriate.
[2016-10-03] MEDS ORDERED: Haloperidol Lactate 5 MG/ML VIAL IVP PRN (15:26)
[2016-10-03 17:02] LABS: Hematocrit 32.2 % (35.3-44.9); Hemoglobin 10.5 g/dL (11.5-15.4); Mean Corpuscular HGB Conc 32.6 g/dL (31.6-35.5); Mean Corpuscular Hemoglobin 31.1 pg (28.0-33.3); Mean Corpuscular Volume 95.3 fL (83.0-100.0); Mean Platelet Volume 10.6 fL (9.4-12.4); Platelet Count 157 K/mcL (140-400); Red Blood Count 3.38 M/mcL (3.82-4.97); Red Cell Distribution Width 12.6 % (11.5-14.5)
[2016-10-03 17:04] LABS: Neutrophils # 2.5 K/mcL (1.6-8.9)
[2016-10-03 17:14] LABS: BUN/Creatinine Ratio 24 (6-26); Blood Urea Nitrogen 21 mg/dL (7-20); Calcium 9.3 mg/dL (8.6-10.8); Carbon Dioxide 20 mEq/L (19-29); Chloride 107 mEq/L (98-109); Glucose 97 mg/dL (70-99); Osmolality,Calculated 289 (280-300); Potassium 3.6 mEq/L (3.5-4.5); Sodium 138 mEq/L (136-145); eGFR For African Americans > 60 (> 60); eGFR For Non-African Americans > 60 (> 60)
[2016-10-03] MEDS: 0.9 % Sodium Chloride 1,000 ML IVC SCH (17:21)
[2016-10-03] MEDS: clonazePAM 0.5 MG TABLET PO SCH ×2 (17:28→20:00)
[2016-10-03 17:32] LABS: Eosinophils # 0.3 K/mcL (0.0-0.6); Lymphocytes # 0.5 K/mcL (0.6-4.6); Monocytes # 0.7 K/mcL (0.0-1.3); Platelet Estimate Normal (Normal)
[2016-10-04] MEDS: 0.9 % Sodium Chloride 1,000 ML IVC SCH ×3 (02:05→17:21)
[2016-10-04 06:41] LABS: Basophils % 0.7 %; Eosinophils # 0.1 K/mcL (0.0-0.6); Eosinophils % 1.2 %; Hematocrit 29.3 % (35.3-44.9); Hemoglobin 9.6 g/dL (11.5-15.4); Immature Granulocytes % 0.2 % (0-4); Lymphocytes # 0.9 K/mcL (0.6-4.6); Lymphocytes % 22.3 %; Mean Corpuscular HGB Conc 32.8 g/dL (31.6-35.5); Mean Corpuscular Hemoglobin 31.6 pg (28.0-33.3); Mean Corpuscular Volume 96.4 fL (83.0-100.0); Mean Platelet Volume 11.1 fL (9.4-12.4); Monocytes # 0.8 K/mcL (0.0-1.3); Monocytes % 18.7 %; Neutrophils # 2.4 K/mcL (1.6-8.9); Platelet Count 148 K/mcL (140-400); Red Blood Count 3.04 M/mcL (3.82-4.97); Red Cell Distribution Width 12.8 % (11.5-14.5); Segmented Neutrophils % 56.9 %
[2016-10-04 07:52] LABS: Platelet Estimate Normal (Normal)
[2016-10-04] MEDS ORDERED: *HR* LORazepam 2 MG/ML VIAL ONE (08:58)
[2016-10-04] MEDS ORDERED: *HR* LORazepam 2 MG/ML VIAL IVP ONE (09:01)
[2016-10-04] MEDS: clonazePAM 0.5 MG TABLET PO SCH ×4 (09:14→21:32)
--- NOTE | 2016-10-04 09:16 | Internal Med Progress Note ---
Date of Encounter: 10/04/16 Time of Encounter: 08:50 - Assessment and plan (1) UTI (urinary tract infection) Current Visit: No Status: Acute Assessment and plan: Preliminary urine culture with gram-negative rods, continue Rocephin.Leukocytosis. Vital signs are stable. We will reevaluate abdominal exam once the patient is more alert. If abdominal pain is present, will consider imaging of the abdomen at that time. No signs of acute abdominal processes, no signs of pyelo on examination Qualifiers: Urinary tract infection type: site unspecified Hematuria presence: without hematuria Qualified Code(s): N39.0 - Urinary tract infection, site not specified (2) Positive blood culture Current Visit: Yes Status: Acute Assessment and plan: Blood culture positive for MRSA, no signs of sepsis. Patient was tachycardic however she was also tremoring at that time, now that her tremors have lessened , she is no longer tachycardic. No leukocytosis. Blood pressure stable. No signs of sepsis, repeat blood cultures have been sent and awaiting the results. We will continue with Rocephin and add vancomycin and we will de-escalate antibiotics once repeat blood cultures are obtained. Of note, initially the plan was to not treat positive blood culture due to concern for possible contamination however patient had a seizure/pseudoseizure, will err on the side of caution and treat with vancomycin (3) History of seizures Current Visit: Yes Status: Chronic Assessment and plan: I was called to the patient's room for possible seizure-like activity. She was able to track me ambulating across the room and her physical examination was more consistent with a pseudoseizure. She was initially brought to the emergency department for an acute psychotic break per ER reports. Patient was then transferred to psychiatric unit but then brought back to the emergency department as she started to complain of abdominal pain while inpatient psychiatric unit. Strongly suspect patient with increased stressors or psychological issues playing a factor in her possible seizure-like activity. No signs of sepsis but will treat with ceftriaxone and vancomycin pending repeat blood cultures. Patient was able to follow some commands during her alleged seizure-like episode, no postictal state noted after her tremoring stopped. No incontinence, no tongue biting. Head CT negative. (4) Dehydration Current Visit: No Status: Acute Assessment and plan: Continue IV fluids, regular diet. Renal functioning normal, patient appears slightly dehydrated on examination (5) Schizoaffective disorder, bipolar type Current Visit: No Status: Chronic Assessment and plan: Psychiatry on board, appreciate their recommendations (6) Drug-induced Parkinson's disease Current Visit: No Status: Chronic (7) Anemia Current Visit: No Status: Chronic Assessment and plan: Patient had an anemia workup in January 2016, iron normal, vitamin D slightly low, folate low. She is currently at the low end of her normal, no signs of active bleeding, will trend Qualifiers: Anemia type: folate deficiency Folate deficiency anemia type: unspecified folate deficiency Qualified Code(s): D52.9 - Folate deficiency anemia, unspecified (8) Hyperthyroidism Current Visit: No Status: Chronic Assessment and plan: TSH low however free T3 and T4 are normal, follow-up outpatient (9) Former heavy cigarette smoker (20-39 per day) Current Visit: No Status: Chronic - Subjective Interval history: I was called to the patient's room by her nurse who stated she was having a seizure. Upon my entrance into the room, patient was able to make eye contact with me and was able to track me across the room however she would not follow commands for follow-up penlight. Patient with full body tremors consistent with possible pseudoseizure however patient does have history of seizures and would not follow commands, given 2 mg of IV Ativan stat in her tremors lessened and she started to be able to follow commands. We will continue to monitor. - Constitutional Vitals: Temp Pulse Resp BP Pulse Ox 99.3 F 137 14 176/80 93 L 10/04/16 07:34 10/04/16 09:03 10/04/16 07:34 10/04/16 09:03 10/04/16 09:03 General appearance: Present: A&O X 0 (Alleged seizure), disheveled, mild distress, answers questions appropriately - Head Head exam: Present: atraumatic, normocephalic - Eye Eye exam: Present: PERRL, conjuntiva pink, sclera anicteric Pupils: Present: PERRL - Neck Neck exam general surgery: Present: supple, trachea midline. Absent: lymphadenopathy - Respiratory Respiratory exam: Present: decreased breath sounds. Absent: accessory muscle use, rales, respiratory distress, rhonchi, wheezes - Cardiovascular Cardiovascular exam: Present: RRR, +S1, +S2. Absent: diastolic murmur, gallop, rubs, systolic murmur - GI/Abdominal GI/Abdominal exam: Present: normal bowel sounds, soft, no peritoneal signs. Absent: distended, tenderness - Extremities Exam Extremities exam: Present: warm, radial pulses palpable and symetrical. Absent : calf tenderness, cyanotic, pedal edema - Neurological Exam Neurological exam: Present: altered, no focal deficits, strengths equal and symetr throughout. Absent: pronater drift, facial droop, speech deficit - Expanded Neurological Exam Neurological exam expanded: Present: tremor Speech: Present: expressive aphasia Neuro motor strength exam: LUE: 4, RUE: 4, LLE: 4, RLE: 4 Coma Scale Eye Opening: Spontaneous Coma Scale Motor Response: Obeys Commands Coma Scale Verbal Response: Incomprehensible Coma Scale Total: 12 - Skin Skin exam: Present: dry, intact, pallor, warm Internal Medicine: Result - Labs CBC & Chem 7: 10/04/16 06:10 10/03/16 16:50 Labs: Short CBC 10/03/16 10/04/16 Range/Units 16:50 06:10 WBC 4.1 L 4.2 L (4.3-11.1) K/mcL Hgb 10.5 L 9.6 L (11.5-15.4) g/dL Hct 32.2 L 29.3 L (35.3-44.9) % Plt Count 157 148 (140-400) K/mcL Neutrophils # 2.5 2.4 (1.6-8.9) K/mcL BMP 10/03/16 16:50 Sodium 138 Potassium 3.6 Chloride 107 Carbon Dioxide 20 BUN 21 H Creatinine 0.86 Glucose 97 Calcium 9.3
[2016-10-04] MEDS ORDERED: Vancomycin 1,250 MG in D5% in Water 250 ML IVPB SCH (10:00)
[2016-10-04] MEDS ORDERED: Ondansetron 4 MG/2 ML VIAL ONE (11:34)
[2016-10-04] MEDS ORDERED: Ondansetron 4 MG/2 ML VIAL IVP PRN (11:38)
[2016-10-04] MEDS: Vancomycin 1,000 MG in D5% in Water 250 ML IVPB SCH ×2 (11:40→21:32)
--- NOTE | 2016-10-04 13:22 | Consult Note ---
Date of Encounter: 10/04/16 Time of Encounter: 12:00 Assessment & Recommendation (1) Schizoaffective disorder, bipolar type Current visit: Yes Status: Acute Assessment & Recommendation: Case and recommendation were discussed with the medical team. We recommend: 1. Continue medical stabilization with optional neurology consult to clarify seizure and tremors status 2. When patient is medically stabilized she can be transferred back to psychiatric unit for psychiatric treatment. 3. No medication changes recommended at this time Thank you for consultation and please address any questions. History of Present Illness Patient: known to practice within the last 3 years Requesting Physician: Alice Rivera Reason for consult: Schizoaffective disorder bipolar, medication management History of present illness: Ms. Mendoza is a 35 year old female was admitted initially to the psychiatric unit for exacerbation of schizoaffective disorder bipolar and suicidal ideation. Patient was having symptoms suggesting infection and dehydration in addition to positive blood culture and medical consultation was requested and patient was transferred to medical floor for medical stabilization of several conditions including dehydration, urinary tract infection, hyperthyroidism, seizure disorder, anemia and medication induced parkinsonism with tremors in both upper and lower extremities. Review of recent notes and labs indicate patient metabolic status is is improving, she continued to display generalized tremors and possible pseudoseizures. On interview she is alert and awake, noted tremors in hands and legs she remembered me from seeing her in the psychiatric units and she answered questions appropriately. CC: Alice Rivera Past Med Surg Social Fam HX - Past Medical History Medical history: arthritis, asthma, COPD, GERD, hypertension, migraine, osteoporosis, seizures, thyroid disease, syncope, other - Past Surgical History Surgical History: orthopedic, other, sinus surgery (Knee surgery. Adenoidectomy -tonsillectomy.), other - Social History Smoking Status: Former smoker Smokeless Tobacco Status: No Alcohol use: none Drug use: none - Family History Mother Daughter Family Member Ethnicity: Non- Mother Hx Family Respiratory Disorders: Yes Hx Family Cancer: Yes Medications & Allergies Albuterol Sulfate [Albuterol Inhaler] 2 puff IH Q4H PRN 07/28/15 [History] Omeprazole [PriLOSEC] 20 mg PO DAILY 07/28/15 [History] Amantadine HCl [Amantadine] 100 mg PO BID 11/30/15 [History] Hydrochlorothiazide 25 mg PO DAILY 11/30/15 [History] Levothyroxine [Synthroid] 125 mcg PO QAM 11/30/15 [History] Potassium Chloride 10 meq PO DAILY 11/30/15 [History] Vitamin E 1,000 unit PO DAILY 11/30/15 [History] Ondansetron ODT [Zofran ODT] 4 mg SL Q6HR PRN #10 tab.rapdis 08/30/16 [Rx] Budesonide/Formoterol 160/4.5 [Symbicort 160/4.5] 2 puff IH BIDR 10/03/16 [ History] ClonazePAM [Klonopin] 1 mg PO QID PRN 10/03/16 [History] Escitalopram [Lexapro] 20 mg PO DAILY 10/03/16 [History] Gabapentin [Neurontin] 1,200 mg PO TID 10/03/16 [History] Quetiapine Fumarate [Seroquel] 800 mg PO DAILY 10/03/16 [History] Topiramate [Topiramate] 200 mg PO TID 10/03/16 [History] Trazodone HCl 150 - 300 mg PO HS PRN 10/03/16 [History] Verapamil ER (24 HR) [Calan SR] 120 mg PO DAILY 10/03/16 [History] Allergies aripiprazole [From Abilify] Allergy (Verified 08/30/16 16:10) Difficulty Breathing aspirin Allergy (Verified 08/30/16 16:10) Difficulty Breathing ibuprofen Allergy (Verified 08/30/16 16:10) Difficulty Breathing latex Allergy (Verified 08/30/16 16:10) Difficulty Breathing metronidazole [From Flagyl] Allergy (Verified 08/30/16 16:10) Difficulty Breathing naproxen [From Aleve] Allergy (Verified 08/30/16 16:10) Difficulty Breathing Sulfa (Sulfonamide Antibiotics) Allergy (Verified 08/30/16 16:10) Vomiting Mental Status Exam Patient orientation: Yes Person, Yes Time, Yes Place Level of alertness: Alert Patient appearance: Appropriate, Unkempt Behavior: calm, cooperative, anxious Psychomotor activity: Normal Eye contact: Maintains Eye Contact Mood description: Depressed, Anxious Affect description: congruent with mood, full range, constricted Speech pattern: Normal rate, Normal rhythm, Normal tone, Limited Speech volume: Soft/Quiet Thought process: Linear, Goal Oriented Thought content: No Suicidal ideation, No Homicidal ideation, No Overt delusions Perceptual disturbances: No Auditory hallucinations, No Visual hallucinations Attention span: Capable of Sustained Attention Memory description: Grossly Intact Patient reliability: Reliable Historian Intelligence estimate: Average Judgment: Limited Insight: Partial Results - Vital Signs Vital signs: Temp Pulse Resp BP Pulse Ox 99.3 F 93 14 131/72 93 L 10/04/16 07:34 10/04/16 10:18 10/04/16 10:18 10/04/16 10:18 10/04/16 10:18 - Labs Labs: Laboratory Last Values WBC 4.2 K/mcL (4.3-11.1) L 10/04/16 06:10 RBC 3.04 M/mcL (3.82-4.97) L 10/04/16 06:10 Hgb 9.6 g/dL (11.5-15.4) L 10/04/16 06:10 Hct 29.3 % (35.3-44.9) L 10/04/16 06:10 MCV 96.4 fL (83.0-100.0) 10/04/16 06:10 MCH 31.6 pg (28.0-33.3) 10/04/16 06:10 MCHC 32.8 g/dL (31.6-35.5) 10/04/16 06:10 RDW 12.8 % (11.5-14.5) 10/04/16 06:10 Plt Count 148 K/mcL (140-400) 10/04/16 06:10 MPV 11.1 fL (9.4-12.4) 10/04/16 06:10 Immature Gran % 0.2 % (0-4) 10/04/16 06:10 Seg Neutrophils % 56.9 % 10/04/16 06:10 Band Neutrophils % 2.0 % (0-4) 10/03/16 16:50 Lymphocytes % 22.3 % 10/04/16 06:10 Monocytes % 18.7 % 10/04/16 06:10 Eosinophils % 1.2 % 10/04/16 06:10 Basophils % 0.7 % 10/04/16 06:10 Neutrophils # 2.4 K/mcL (1.6-8.9) 10/04/16 06:10 Lymphocytes # 0.9 K/mcL (0.6-4.6) 10/04/16 06:10 Monocytes # 0.8 K/mcL (0.0-1.3) 10/04/16 06:10 Eosinophils # 0.1 K/mcL (0.0-0.6) 10/04/16 06:10 Basophils # 0.0 K/mcL (0.0-0.2) 10/04/16 06:10 Platelet Estimate Normal (Normal) 10/04/16 06:10 Sodium 138 mEq/L (136-145) 10/03/16 16:50 Potassium 3.6 mEq/L (3.5-4.5) 10/03/16 16:50 Chloride 107 mEq/L (98-109) 10/03/16 16:50 Carbon Dioxide 20 mEq/L (19-29) 10/03/16 16:50 BUN 21 mg/dL (7-20) H 10/03/16 16:50 Creatinine 0.86 mg/dL (0.57-1.11) 10/03/16 16:50 Est GFR ( Amer) > 60 (> 60) 10/03/16 16:50 Est GFR (Non-Af Amer) > 60 (> 60) 10/03/16 16:50 BUN/Creatinine Ratio 24 (6-26) 10/03/16 16:50 Glucose 97 mg/dL (70-99) 10/03/16 16:50 Calculated Osmolality 289 (280-300) 10/03/16 16:50 Calcium 9.3 mg/dL (8.6-10.8) 10/03/16 16:50
--- NOTE | 2016-10-04 14:50 | Neurology - Consult Note ---
Date of Encounter: 10/04/16 Time of Encounter: 14:46 Assessment and Plan (1) Drug-induced Parkinson's disease Current Visit: No Status: Chronic Likely tardive tremors noted, along with muscle rigidity, bradykinesis. Patient does have Parkinsonian features. Treatment would be difficult for tardive tremors and no additional medications will be recommended for this type of tremors. There is no fever no mental status changes and no nuchal rigidity. Do not think there is picture of NMS. Please continue Medical and supportive care (2) History of seizures Current Visit: Yes Status: Chronic Patient has history of seizures that has been quiescent for many years. It was thought that she has both epileptic and non-epileptic seizures but occasionally seizures can be associated with tongue biting She is suppose to be on Topiramate 200mg bid and this has been working for her. Will recommend no changes in her antiepileptic therapy History of Present Illness Chief complaint: seizure/tremor HPI: Ms. 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 She was transfered onto medical floor due to findings of UTI. Today, she developed an episode of possible seizure, characterized by whole body trembling, without preserved consciousness. Patient has known to me and she does have remote history of seizure disorder, occasionally associated with tongue biting. However, she has not been having seizures in the last few years. She takes topiramate 200mg bid for seizure disorder. Also has migraine headaches and she does have some Parkinsonism features likely secondary to previous antipsychotic use. Patient is having tremors in her limbs with mental status preserved. Patient is able to converse just fine with me. The tremors are involving hands and feet with increased rigidity and just feel like EPS tremors. Certainly this is not seizure like activity Past Med Surg Social Fam HX - Past Medical History Medical history: arthritis, asthma, COPD, GERD, hypertension, migraine, osteoporosis, seizures, thyroid disease, syncope, other Psychiatric history: anxiety, bipolar, depression, prior suicide attempt, schizophrenia, previous psychiatric hospitalization, other - Past Surgical History Surgical History: orthopedic, other, sinus surgery (Knee surgery. Adenoidectomy -tonsillectomy.), other - Social History Smoking Status: Former smoker Smokeless Tobacco Status: No Alcohol use: none Drug use: none - Family History Mother Daughter Family Member Ethnicity: Non- Mother Hx Family Respiratory Disorders: Yes Hx Family Cancer: Yes Medications and Allergies Albuterol Sulfate [Albuterol Inhaler] 2 puff IH Q4H PRN 07/28/15 [History] Omeprazole [PriLOSEC] 20 mg PO DAILY 07/28/15 [History] Amantadine HCl [Amantadine] 100 mg PO BID 11/30/15 [History] Hydrochlorothiazide 25 mg PO DAILY 11/30/15 [History] Levothyroxine [Synthroid] 125 mcg PO QAM 11/30/15 [History] Potassium Chloride 10 meq PO DAILY 11/30/15 [History] Vitamin E 1,000 unit PO DAILY 11/30/15 [History] Ondansetron ODT [Zofran ODT] 4 mg SL Q6HR PRN #10 tab.rapdis 08/30/16 [Rx] Budesonide/Formoterol 160/4.5 [Symbicort 160/4.5] 2 puff IH BIDR 10/03/16 [ History] ClonazePAM [Klonopin] 1 mg PO QID PRN 10/03/16 [History] Escitalopram [Lexapro] 20 mg PO DAILY 10/03/16 [History] Gabapentin [Neurontin] 1,200 mg PO TID 10/03/16 [History] Quetiapine Fumarate [Seroquel] 800 mg PO DAILY 10/03/16 [History] Topiramate [Topiramate] 200 mg PO TID 10/03/16 [History] Trazodone HCl 150 - 300 mg PO HS PRN 10/03/16 [History] Verapamil ER (24 HR) [Calan SR] 120 mg PO DAILY 10/03/16 [History] Allergies aripiprazole [From Abilify] Allergy (Verified 08/30/16 16:10) Difficulty Breathing aspirin Allergy (Verified 08/30/16 16:10) Difficulty Breathing ibuprofen Allergy (Verified 08/30/16 16:10) Difficulty Breathing latex Allergy (Verified 08/30/16 16:10) Difficulty Breathing metronidazole [From Flagyl] Allergy (Verified 08/30/16 16:10) Difficulty Breathing naproxen [From Aleve] Allergy (Verified 08/30/16 16:10) Difficulty Breathing Sulfa (Sulfonamide Antibiotics) Allergy (Verified 08/30/16 16:10) Vomiting All Systems: A 10-system review of systems was performed and is negative for pertinent findings except as documented above in the HPI. 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 Has bilateral reduced dexterity with elevated muscle tone. Small amplitude, fast tremros noted to both hands and feet) Motor examination - right side: 5/5: deltoids, biceps, triceps, wrist flexion, wrist extension, retort furnace helper, hip flexors, tibialis Anterior, quadriceps, toe extension (EHL), plantarflexion Motor examination - left side: 5/5: deltoids, biceps, triceps, wrist flexion, wrist extension, hip flexors, retort furnace helper, quadriceps, tibialis Anterior, toe extension (EHL), plantarflexion Detailed sensory examination: other ([place] intact) Posture: other (Patient is rigid and trebling. Legs are in extended position ) Reflexes: Biceps: 1+, Triceps: 1+, Brachioradialis: 1+, Patella: 1+, Achilles: 1 + Mental Status Examination: awake, alert, oriented to person, oriented to place, oriented to time, follows commands appropriately, answers questions appropriately, no agnosia, no aphasia, no aproxia Results - Laboratory Findings CBC and BMP: 10/04/16 06:10 10/03/16 16:50 Abnormal lab findings: Abnormal lab results WBC 4.2 K/mcL (4.3-11.1) L 10/04/16 06:10 RBC 3.04 M/mcL (3.82-4.97) L 10/04/16 06:10 Hgb 9.6 g/dL (11.5-15.4) L 10/04/16 06:10 Hct 29.3 % (35.3-44.9) L 10/04/16 06:10 BUN 21 mg/dL (7-20) H 10/03/16 16:50
--- NOTE | 2016-10-04 15:02 | Event Note ---
Date of Encounter: 10/04/16 Time of Encounter: 14:30 Patient is seen and reexamined in concert with neurology Dr. Baltazar. When observed from the hallway, patient did not have any tremors however when present at bedside, patient with full body tremors. She is alert and oriented 3 but is choosing not to answer some questions. She does endorse increased stressors at home but will not elaborate. No changes to her medications at this time per neurology. We will continue to monitor. Awaiting urine culture results and repeat blood culture results.
[2016-10-05] MEDS: 0.9 % Sodium Chloride 1,000 ML IVC SCH ×2 (02:07→09:28)
[2016-10-05 06:27] LABS: Basophils % 0.5 %; Eosinophils % 1.1 %; Hematocrit 30.6 % (35.3-44.9); Hemoglobin 9.8 g/dL (11.5-15.4); Immature Granulocytes % 0.3 % (0-4); Lymphocytes # 0.8 K/mcL (0.6-4.6); Lymphocytes % 21.6 %; Mean Corpuscular Hemoglobin 31.4 pg (28.0-33.3); Mean Corpuscular Volume 98.1 fL (83.0-100.0); Mean Platelet Volume 11.4 fL (9.4-12.4); Monocytes # 0.6 K/mcL (0.0-1.3); Monocytes % 17.2 %; Neutrophils # 2.2 K/mcL (1.6-8.9); Platelet Count 132 K/mcL (140-400); Red Blood Count 3.12 M/mcL (3.82-4.97); Red Cell Distribution Width 12.8 % (11.5-14.5); Segmented Neutrophils % 59.3 %
[2016-10-05 06:47] LABS: BUN/Creatinine Ratio 12 (6-26); Calcium 8.2 mg/dL (8.6-10.8); Carbon Dioxide 18 mEq/L (19-29); Chloride 110 mEq/L (98-109); Glucose 88 mg/dL (70-99); Osmolality,Calculated 284 (280-300); Potassium 3.4 mEq/L (3.5-4.5); Sodium 138 mEq/L (136-145); eGFR For African Americans > 60 (> 60); eGFR For Non-African Americans > 60 (> 60)
[2016-10-05 06:48] LABS: Blood Urea Nitrogen 8 mg/dL (7-20)
[2016-10-05] MEDS: clonazePAM 0.5 MG TABLET PO SCH ×4 (09:28→20:06)
[2016-10-05] MEDS: Cefdinir 300 MG CAPSULE PO SCH ×2 (09:28→20:05)
[2016-10-05] MEDS ORDERED: traZODone 50 MG TABLET PO PRN (13:55)
[2016-10-05] MEDS ORDERED: Potassium Chloride Elixir 20 MEQ/15 ML UDC PO ONE (13:59)
[2016-10-05] MEDS ORDERED: Haloperidol Lactate 5 MG/ML VIAL IM PRN (13:59)
[2016-10-05] MEDS ORDERED: NON-FORMULARY MEDICATION 1 EACH EACH (Quetiapine Fumarate [Seroquel] 800 MG) PO SCH (14:00)
--- NOTE | 2016-10-05 14:15 | Internal Med Progress Note ---
Date of Encounter: 10/05/16 Time of Encounter: 10:30 - Assessment and plan (1) UTI (urinary tract infection) Current Visit: No Status: Acute Assessment and plan: Urine culture revealing Escherichia coli resistant to fluoroquinolones and Bactrim. Appropriately treated with ceftriaxone, changed to cefdinir at this time. Vital signs are stable. Patient denies abdominal pain or dysuria. Decreased by mouth intake, we will continue to offer food choices. Qualifiers: Urinary tract infection type: site unspecified Hematuria presence: without hematuria Qualified Code(s): N39.0 - Urinary tract infection, site not specified (2) Positive blood culture Current Visit: Yes Status: Resolved Assessment and plan: Blood culture positive for MRSA, no signs of sepsis. Repeat blood cultures negative. Suspect contamination, vancomycin discontinued. (3) History of seizures Current Visit: Yes Status: Chronic Assessment and plan: Yesterday morning, patient had an episode consistent with a pseudoseizure. No further seizure-like activity. We will continue to monitor. Seen and evaluated by neurology who recommended same medications that she is currently on. Pulmonary medications continued at this time. (4) Dehydration Current Visit: No Status: Acute Assessment and plan: We will stop IV fluids at this time and continue to encouraged patient to eat and drink. She appears euvolemic on examination however mouth is dry. (5) Schizoaffective disorder, bipolar type Current Visit: No Status: Chronic Assessment and plan: Psychiatry on board. Spoke to Dr Boss today- will observe her another night given mild pancytopenia and hypokalemia. Possible transfer to tomorrow pending clinical outcomes. Patient again states that she has multiple stressors at home but is still unwilling to elaborate. She denies any suicidal or homicidal ideations at this time. (6) Drug-induced Parkinson's disease Current Visit: No Status: Chronic (7) Anemia Current Visit: No Status: Chronic Assessment and plan: Patient had an anemia workup in January 2016, iron normal, vitamin D slightly low, folate low. She is currently at the low end of her normal, no signs of active bleeding, will trend Qualifiers: Anemia type: folate deficiency Folate deficiency anemia type: unspecified folate deficiency Qualified Code(s): D52.9 - Folate deficiency anemia, unspecified (8) Hyperthyroidism Current Visit: No Status: Chronic Assessment and plan: TSH low however free T3 and T4 are normal, follow-up outpatient (9) Former heavy cigarette smoker (20-39 per day) Current Visit: No Status: Chronic (10) Pancytopenia Current Visit: Yes Status: Acute Assessment and plan: Likely secondary to her urinary tract infection. Of note, was not present on . Patient started ceftriaxone on 10/03/16, could be drug-induced as cephalosporins are known to cause agranulocytosis. No signs of sepsis. We will continue to trend. (11) Hypokalemia Current Visit: Yes Status: Acute Assessment and plan: Mild, repleting, will recheck in a.m. - Subjective Interval history: Patient seen and examined. On examination, patient initially asleep and awakened easily to voice. While asleep, no tremors noted. Immediately after awakening, patient started with full body tremors. She was still able to answer all questions and denies pain at this time. I told her I was concerned that she is not eating and she states she wants "applesauce." - Constitutional Vitals: Temp Pulse Resp BP Pulse Ox 99.3 F 75 17 142/82 96 10/05/16 10:42 10/05/16 10:42 10/05/16 10:42 10/05/16 10:42 10/05/16 10:42 General appearance: Present: disheveled, A&O X 3, no acute distress, answers questions appropriately ( simple yes/no questions) - Head Head exam: Present: atraumatic, normocephalic - Eye Eye exam: Present: PERRL, conjuntiva pink, sclera anicteric Pupils: Present: PERRL - Neck Neck exam general surgery: Present: supple, trachea midline. Absent: lymphadenopathy - Respiratory Respiratory exam: Present: CTAB. Absent: accessory muscle use, rales, respiratory distress, rhonchi, wheezes - Cardiovascular Cardiovascular exam: Present: RRR, +S1, +S2. Absent: diastolic murmur, gallop, rubs, systolic murmur - GI/Abdominal GI/Abdominal exam: Present: normal bowel sounds, soft, no peritoneal signs. Absent: distended, tenderness - Extremities Exam Extremities exam: Present: warm, radial pulses palpable and symetrical. Absent : calf tenderness, cyanotic, pedal edema - Neurological Exam Neurological exam: Present: alert, CN II-XII intact, oriented X3, no focal deficits, strengths equal and symetr throughout. Absent: pronater drift, facial droop, speech deficit - Expanded Neurological Exam Neurological exam expanded: Present: tremor (full body; only while awake and with staff present) Cranial Nerves: EOM's intact PM: Normal Cerebellar function: finger to nose: Normal Neuro motor strength exam: LUE: 4, RUE: 4, LLE: 4, RLE: 4 Coma Scale Eye Opening: Spontaneous Coma Scale Motor Response: Obeys Commands Coma Scale Verbal Response: Oriented Coma Scale Total: 15 - Psychiatric Psychiatric exam: Present: anxious, flat affect. Absent: suicidal ideation - Expanded Psychiatric Exam Focused psych exam: Present: catatonic, restlessness - Skin Skin exam: Present: dry, intact, pallor, warm Internal Medicine: Result - Labs CBC & Chem 7: 10/05/16 05:28 10/05/16 05:28 Labs: Short CBC 10/05/16 Range/Units 05:28 WBC 3.7 L (4.3-11.1) K/mcL Hgb 9.8 L (11.5-15.4) g/dL Hct 30.6 L (35.3-44.9) % Plt Count 132 L (140-400) K/mcL Neutrophils # 2.2 (1.6-8.9) K/mcL BMP 10/05/16 05:28 Sodium 138 Potassium 3.4 L Chloride 110 H Carbon Dioxide 18 L BUN 8 D Creatinine 0.66 Glucose 88 Calcium 8.2 L Consult Discharge Plan - Plan Referrals: June Moreno CNP [Advanced Practice Nurse] - Sissy Carbajal MD [Partnered Physician] -
[2016-10-05] MEDS: Budesonide/Formoterol 160/4.5 MDI IH SCH ×2 (16:01→22:39)
[2016-10-05] MEDS: Topiramate 100 MG TABLET PO SCH ×2 (17:03→20:06)
[2016-10-05] MEDS: hydroCHLOROthiazide 25 MG TABLET PO SCH (17:03)
[2016-10-05] MEDS: Verapamil ER (24 HR) 120 MG TABLET.ER PO SCH (17:03)
[2016-10-05] MEDS: Gabapentin 400 MG CAPSULE PO SCH ×2 (17:03→20:06)
[2016-10-06 04:20] LABS: Basophils % 0.7 %; Eosinophils % 1.4 %; Hematocrit 31.3 % (35.3-44.9); Hemoglobin 9.9 g/dL (11.5-15.4); Immature Granulocytes % 0.3 % (0-4); Lymphocytes # 1.2 K/mcL (0.6-4.6); Lymphocytes % 39.8 %; Mean Corpuscular HGB Conc 31.6 g/dL (31.6-35.5); Mean Corpuscular Hemoglobin 30.5 pg (28.0-33.3); Mean Corpuscular Volume 96.3 fL (83.0-100.0); Mean Platelet Volume 11.3 fL (9.4-12.4); Monocytes # 0.4 K/mcL (0.0-1.3); Monocytes % 13.3 %; Neutrophils # 1.3 K/mcL (1.6-8.9); Platelet Count 123 K/mcL (140-400); Red Blood Count 3.25 M/mcL (3.82-4.97); Red Cell Distribution Width 12.5 % (11.5-14.5); Segmented Neutrophils % 44.5 %
[2016-10-06 04:50] LABS: BUN/Creatinine Ratio 7 (6-26); Calcium 8.4 mg/dL (8.6-10.8); Carbon Dioxide 22 mEq/L (19-29); Chloride 108 mEq/L (98-109); Glucose 89 mg/dL (70-99); Magnesium 1.4 mg/dL (1.6-2.6); Osmolality,Calculated 291 (280-300); Potassium 2.9 mEq/L (3.5-4.5); Sodium 142 mEq/L (136-145); eGFR For African Americans > 60 (> 60); eGFR For Non-African Americans > 60 (> 60)
[2016-10-06 04:52] LABS: Blood Urea Nitrogen 5 mg/dL (7-20)
[2016-10-06] MEDS ORDERED: Potassium Chloride 40 MEQ, Lidocaine 1% 2 ML in D5% in Water 500 ML IVPB ONE (08:46)
[2016-10-06] MEDS ORDERED: Potassium Chloride Elixir 20 MEQ/15 ML UDC PO ONE (08:46)
[2016-10-06] MEDS ORDERED: Magnesium Sulfate 2 GM in D5% in Water 100 ML IVPB ONE (08:47)
[2016-10-06] MEDS: hydroCHLOROthiazide 25 MG TABLET PO SCH (10:02)
[2016-10-06] MEDS: Verapamil ER (24 HR) 120 MG TABLET.ER PO SCH (10:02)
[2016-10-06] MEDS: Gabapentin 400 MG CAPSULE PO SCH ×3 (10:02→21:38)
[2016-10-06] MEDS: Topiramate 100 MG TABLET PO SCH ×3 (10:03→21:37)
[2016-10-06] MEDS: Cefdinir 300 MG CAPSULE PO SCH (10:04)
[2016-10-06] MEDS: clonazePAM 0.5 MG TABLET PO SCH ×2 (10:04→14:21)
[2016-10-06] MEDS: Budesonide/Formoterol 160/4.5 MDI IH SCH ×2 (10:49→20:56)
--- NOTE | 2016-10-06 14:40 | Psychiatry Progress Note ---
Date of Encounter: 10/06/16 Time of Encounter: 14:36 Subjective Interval history: I reviewed updated labs and reports and discussed the case with nurse practitioner. Patient continued to show metabolic abnormalities, low white count and lethargy. I recommended medication changes as follow: 1. Reduce Topamax dose to 200 mg daily 2. Reduce Seroquel to 400 mg daily 3. DC doxepin 4. Change Klonopin to when necessary and uses as less as possible. We will follow tomorrow. Objective: Exam Patient orientation: Yes Person, Yes Time, Yes Place Level of alertness: Alert Patient appearance: Appropriate, Unkempt Behavior: calm, cooperative, anxious Psychomotor activity: Normal Eye contact: Maintains Eye Contact Mood description: Depressed, Anxious Affect description: congruent with mood, full range, constricted Speech pattern: Normal rate, Normal rhythm, Normal tone, Limited Speech volume: Soft/Quiet Thought process: Linear, Goal Oriented Thought content: No Suicidal ideation, No Homicidal ideation, No Overt delusions Perceptual disturbances: No Auditory hallucinations, No Visual hallucinations Judgment: Limited Insight: Partial Results - Vital Signs Vital Signs: Temp Pulse Resp BP Pulse Ox 98.0 F 86 15 118/81 94 L 10/06/16 11:20 10/06/16 11:20 10/06/16 11:20 10/06/16 11:20 10/06/16 11:20 - Labs Labs: Laboratory Results - last 24 hr 10/06/16 10/06/16 03:37 03:37 WBC 2.9 L RBC 3.25 L Hgb 9.9 L Hct 31.3 L MCV 96.3 MCH 30.5 MCHC 31.6 RDW 12.5 Plt Count 123 L MPV 11.3 Immature Gran % 0.3 Seg Neutrophils % 44.5 Lymphocytes % 39.8 Monocytes % 13.3 Eosinophils % 1.4 Basophils % 0.7 Neutrophils # 1.3 L Lymphocytes # 1.2 Monocytes # 0.4 Eosinophils # 0.0 Basophils # 0.0 Sodium 142 Potassium 2.9 L Chloride 108 Carbon Dioxide 22 BUN 5 L Creatinine 0.69 Est GFR ( Amer) > 60 Est GFR (Non-Af Amer) > 60 BUN/Creatinine Ratio 7 Glucose 89 Calculated Osmolality 291 Calcium 8.4 L Magnesium 1.4 L Assessment and Plan (1) Schizoaffective disorder, bipolar type Current visit: Yes Status: Acute Plan: Continue hospitalization, Close observation, Suicide Precautions per unit protocol, Encourage participation in unit milieu, Group Therapy, Monitor sleep, Monitor appetite Additional Plan: Please see medication changes recommendation in history of present illness. Consult Discharge Plan - Plan Referrals: June Moreno CNP [Advanced Practice Nurse] - Sissy Carbajal MD [Partnered Physician] -
--- NOTE | 2016-10-06 14:42 | Neurology Progress Note ---
Date of Encounter: 10/06/16 Time of Encounter: 14:38 Assessment and Plan (1) Drug-induced Parkinson's disease Current Visit: No Status: Chronic No significant changes in terms of her tremors, today very drowsy but still can see some residual tardive tremors or mini myoclonus likely secondary to history of antipsychotic exposure. These are certainly not signs of seizure (2) History of seizures Current Visit: Yes Status: Chronic Been doing well on Topiramate 200mg tid. No changes will be recommended. Will sign off at this time. Please call if any questions Subjective Principal diagnosis: tremors Interval history: Patient seen and examined. She is very drowsy today but arousable. No witnessed seizure activity. Some tremors involving hands, characterized by mini myoclonus seen in her hands and fingers. Objective - Constitutional Vitals: Temp Pulse Resp BP Pulse Ox 98.0 F 86 15 118/81 94 L 10/06/16 11:20 10/06/16 11:20 10/06/16 11:20 10/06/16 11:20 10/06/16 11:20 - Neurological Exam Sensorimotor examination: Present: other (Unable to assess) Motor Examination: Present: grossly full strength in all extremities (Patient very drowsy today, unable to assess accurately) Sensation intact: Present: other (Unable to assess) Reflexes: Biceps: 2+, Triceps: 2+, Brachioradialis: 2+, Patella: 2+, Achilles: 2 + Mental Status Examination: Present: drowsy (very drowsy. OPen eyes to strong sturnal rub and drfit back to sleep right away) Results - Laboratory Findings CBC and BMP: 10/06/16 03:37 10/06/16 03:37 Abnormal lab findings: Abnormal lab results WBC 2.9 K/mcL (4.3-11.1) L 10/06/16 03:37 RBC 3.25 M/mcL (3.82-4.97) L 10/06/16 03:37 Hgb 9.9 g/dL (11.5-15.4) L 10/06/16 03:37 Hct 31.3 % (35.3-44.9) L 10/06/16 03:37 Plt Count 123 K/mcL (140-400) L 10/06/16 03:37 Neutrophils # 1.3 K/mcL (1.6-8.9) L 10/06/16 03:37 Potassium 2.9 mEq/L (3.5-4.5) L 10/06/16 03:37 BUN 5 mg/dL (7-20) L 10/06/16 03:37 Calcium 8.4 mg/dL (8.6-10.8) L 10/06/16 03:37 Magnesium 1.4 mg/dL (1.6-2.6) L 10/06/16 03:37 Consult Discharge Plan - Plan Referrals: June Moreno CNP [Advanced Practice Nurse] - Sissy Carbajal MD [Partnered Physician] -
[2016-10-06 15:40] LABS: Magnesium 2.1 mg/dL (1.6-2.6); Potassium 3.7 mEq/L (3.5-4.5)
[2016-10-06] MEDS ORDERED: clonazePAM 0.5 MG TABLET PO PRN (16:34)
--- NOTE | 2016-10-06 16:37 | Internal Med Progress Note ---
Date of Encounter: 10/06/16 Time of Encounter: 14:00 - Assessment and plan (1) UTI (urinary tract infection) Current Visit: No Status: Acute Assessment and plan: Urine culture revealing Escherichia coli resistant to fluoroquinolones and Bactrim. Appropriately treated with ceftriaxone, changed to cefdinir at this time. Given that she is still pancytopenic which can be caused by cephalosporins, we will change her over to nitrofurantoin and monitor. Blood cultures negative. Vital signs are stable. Patient continues to deny abdominal pain or dysuria. Patient ate all of her breakfast, IV fluids stopped to continue to encourage her to take by mouth. Qualifiers: Urinary tract infection type: site unspecified Hematuria presence: without hematuria Qualified Code(s): N39.0 - Urinary tract infection, site not specified (2) Positive blood culture Current Visit: Yes Status: Resolved Assessment and plan: Blood culture positive for MRSA, no signs of sepsis. Repeat blood cultures negative. Suspect contamination, vancomycin discontinued. (3) History of seizures Current Visit: Yes Status: Chronic Assessment and plan: On the first day of her admission, patient had an episode consistent with a pseudoseizure. No further seizure-like activity since that time. We will continue to monitor. Seen and evaluated by neurology who recommended same medications that she is currently on however the patient is quite listless and psychiatry and I have recommended to decrease to her sedating medications. Her Topamax has been decreased, Seroquel has been decreased, doxepin has been stopped, and her clonazepam that was scheduled for times a days been changed to twice a day and as needed. We will monitor her mentation. Given that she is also pancytopenic and listless, will check her lactic acid levels, ammonia levels and her ABG's. Low suspicion for sepsis given that her blood cultures are negative and her vital signs are stable except for mild tachycardia but will rule out. (4) Dehydration Current Visit: No Status: Acute Assessment and plan: Continue to hold IV fluids as the patient ate her breakfast this morning. She is currently refusing lunch but appears less dehydrated than yesterday. We will continue to encourage by mouth intake. Renal functioning normal. (5) Schizoaffective disorder, bipolar type Current Visit: No Status: Chronic Assessment and plan: Psychiatry on board. Spoke to Dr Boss again today- and we have decided to decrease her sedating medications and monitor her response. We will monitor her overnight and continue to assess her pancytopenia though suspicion for sepsis is quite low. Her hypokalemia and hypomagnesemia were both treated and resolved today. Possible transfer to tomorrow pending clinical outcomes. Patient continues to deny any suicidal or homicidal ideations. (6) Drug-induced Parkinson's disease Current Visit: No Status: Chronic (7) Anemia Current Visit: No Status: Chronic Assessment and plan: Patient had an anemia workup in January 2016, iron normal, vitamin D slightly low, folate low. She is currently at the low end of her normal, no signs of active bleeding, will trend Qualifiers: Anemia type: folate deficiency Folate deficiency anemia type: unspecified folate deficiency Qualified Code(s): D52.9 - Folate deficiency anemia, unspecified (8) Hyperthyroidism Current Visit: No Status: Chronic Assessment and plan: TSH low however free T3 and T4 are normal, follow-up outpatient (9) Former heavy cigarette smoker (20-39 per day) Current Visit: No Status: Chronic (10) Pancytopenia Current Visit: Yes Status: Acute Assessment and plan: Likely secondary to her urinary tract infection. Of note, was not present on . Patient started ceftriaxone on 10/03/16, could be drug-induced as cephalosporins are known to cause agranulocytosis so she has been changed to nitrofurantoin. No signs of sepsis. Her heart rate is slightly elevated however the patient is very anxious when status at the bedside. Blood pressure stable. Will check lactic acid and ABGs. We will continue to trend. (11) Hypokalemia Current Visit: Yes Status: Resolved Assessment and plan: Repleted along with her magnesium, both are now normal. (12) Hypomagnesemia Current Visit: Yes Status: Resolved - Subjective Interval history: Patient seen and examined. On examination, patient initially asleep and awakened easily to voice. Patient would answer simple yes or no questions but would otherwise not responding to questions. She is oriented and denies pain at this time. She states she was able to eat all of her breakfast but states she does not want a lunch. - Constitutional Vitals: Temp Pulse Resp BP Pulse Ox 97.3 F L 94 15 115/75 96 10/06/16 15:11 10/06/16 15:11 10/06/16 15:11 10/06/16 15:11 10/06/16 15:11 General appearance: Present: disheveled, A&O X 3, no acute distress, answers questions appropriately ( simple yes/no questions) - Head Head exam: Present: atraumatic, normocephalic - Eye Eye exam: Present: PERRL, conjuntiva pink, sclera anicteric Pupils: Present: PERRL - Neck Neck exam general surgery: Present: supple, trachea midline. Absent: lymphadenopathy - Respiratory Respiratory exam: Present: decreased breath sounds. Absent: accessory muscle use, rales, respiratory distress, rhonchi, wheezes - Cardiovascular Cardiovascular exam: Present: RRR, +S1, +S2. Absent: diastolic murmur, gallop, rubs, systolic murmur - GI/Abdominal GI/Abdominal exam: Present: normal bowel sounds, soft, no peritoneal signs. Absent: distended, tenderness - Extremities Exam Extremities exam: Present: warm, radial pulses palpable and symetrical. Absent : calf tenderness, cyanotic, pedal edema - Neurological Exam Neurological exam: Present: alert (But listless), CN II-XII intact, oriented X3 , no focal deficits, strengths equal and symetr throughout. Absent: pronater drift, facial droop, speech deficit - Skin Skin exam: Present: dry, intact, pallor, warm Internal Medicine: Result - Labs CBC & Chem 7: 10/06/16 03:37 10/06/16 15:23 Labs: Short CBC 10/06/16 Range/Units 03:37 WBC 2.9 L (4.3-11.1) K/mcL Hgb 9.9 L (11.5-15.4) g/dL Hct 31.3 L (35.3-44.9) % Plt Count 123 L (140-400) K/mcL Neutrophils # 1.3 L (1.6-8.9) K/mcL BMP 10/06/16 10/06/16 03:37 15:23 Sodium 142 Potassium 2.9 L 3.7 Chloride 108 Carbon Dioxide 22 BUN 5 L Creatinine 0.69 Glucose 89 Calcium 8.4 L Consult Discharge Plan - Plan Referrals: June Moreno CNP [Advanced Practice Nurse] - Sissy Carbajal MD [Partnered Physician] -
[2016-10-06 17:16] LABS: ABG Base Excess 3.1 mEq/L (-2.0 to 3.0); ABG HCO3 27.9 mEQ/L (21-27); ABG Oxygen Saturation 96 % (95-98); ABG PCO2 43 mmHg (35-45); ABG PH 7.42 pH Units (7.32-7.45); ABG PO2 82 mmHg (85-104); ABG TCO2 29.2 mEq/L (20-26)
[2016-10-06 17:18] LABS: Blood Gas FiO2 21 %
[2016-10-07 03:51] LABS: Basophils % 0.3 %; Eosinophils # 0.1 K/mcL (0.0-0.6); Eosinophils % 2.5 %; Hematocrit 31.4 % (35.3-44.9); Hemoglobin 10.2 g/dL (11.5-15.4); Lymphocytes # 1.5 K/mcL (0.6-4.6); Lymphocytes % 45.5 %; Mean Corpuscular HGB Conc 32.5 g/dL (31.6-35.5); Mean Corpuscular Hemoglobin 30.8 pg (28.0-33.3); Mean Corpuscular Volume 94.9 fL (83.0-100.0); Monocytes # 0.4 K/mcL (0.0-1.3); Monocytes % 11.7 %; Neutrophils # 1.3 K/mcL (1.6-8.9); Platelet Count 118 K/mcL (140-400); Red Blood Count 3.31 M/mcL (3.82-4.97); Red Cell Distribution Width 12.6 % (11.5-14.5)
[2016-10-07] MEDS: Budesonide/Formoterol 160/4.5 MDI IH SCH (08:24)
[2016-10-07] MEDS: Verapamil ER (24 HR) 120 MG TABLET.ER PO SCH (08:33)
[2016-10-07] MEDS: Gabapentin 400 MG CAPSULE PO SCH ×2 (08:33→13:29)
[2016-10-07] MEDS: hydroCHLOROthiazide 25 MG TABLET PO SCH (08:34)
[2016-10-07] MEDS: Topiramate 100 MG TABLET PO SCH ×2 (08:34→13:29)
[2016-10-07 15:02] VITALS: BP 112/77
--- NOTE | 2016-10-07 17:14 | Discharge Summary ---
Date of Encounter: 10/07/16 Time of Encounter: 15:30 - Discharge Diagnosis (1) UTI (urinary tract infection) Priority: Primary Status: Acute Comments: Urine culture revealing Escherichia coli resistant to fluoroquinolones and Bactrim. Appropriately treated with ceftriaxone, changed to cefdinir at this time. Given that she is still pancytopenic which can be caused by cephalosporins, she was changed over to nitrofurantoin and tolerated it well. Blood cultures negative. Vital signs are stable. Patient continues to deny abdominal pain but now endorses dysuria, will add Pyridium. She has much more alert and is eating more. We will send back down to 1 a Qualifiers: Urinary tract infection type: site unspecified Hematuria presence: without hematuria Qualified Code(s): N39.0 - Urinary tract infection, site not specified (2) Positive blood culture Priority: Primary Status: Resolved Comments: Repeat blood cultures negative. 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 She is currently at the low end of her normal, but remained stable and had no signs of active bleeding. Follow-up outpatient Qualifiers: Anemia type: folate deficiency Folate deficiency anemia type: unspecified folate deficiency Qualified Code(s): D52.9 - Folate deficiency anemia, unspecified (8) Hyperthyroidism Priority: Secondary Status: Chronic Comments: TSH low however free T3 and T4 are normal, follow-up outpatient (9) Former heavy cigarette smoker (20-39 per day) Priority: Secondary Status: Chronic (10) Pancytopenia Priority: Primary Status: Acute Comments: Likely secondary to her urinary tract infection but also could have been due to her cephalosporin. When she was changed from ceftriaxone to nitrofurantoin, her level started to come back up. Follow-up outpatient. (11) Hypokalemia Priority: Primary Status: Resolved (12) Hypomagnesemia Priority: Primary Status: Resolved - Discharge Medications Prescriptions: Nitrofurantoin [Macrodantin] 50 mg PO Q6HR #28 capsule ClonazePAM [Klonopin] 0.5 mg PO BID PRN #10 tablet PRN Reason: anxiety Phenazopyridine HCl [Pyridium] 200 mg PO TIDAC #15 tab Quetiapine Fumarate [Seroquel] 400 mg PO HS #28 tablet Topiramate [Topamax] 100 mg PO TID #90 tablet Home Medications: Albuterol Sulfate [Albuterol Inhaler] 2 puff IH Q4H PRN 07/28/15 [History] Omeprazole [PriLOSEC] 20 mg PO DAILY 07/28/15 [History] Amantadine HCl [Amantadine] 100 mg PO BID 11/30/15 [History] Hydrochlorothiazide 25 mg PO DAILY 11/30/15 [History] Levothyroxine [Synthroid] 125 mcg PO QAM 11/30/15 [History] Potassium Chloride 10 meq PO DAILY 11/30/15 [History] Vitamin E 1,000 unit PO DAILY 11/30/15 [History] Ondansetron ODT [Zofran ODT] 4 mg SL Q6HR PRN #10 tab.rapdis 08/30/16 [Rx] Budesonide/Formoterol 160/4.5 [Symbicort 160/4.5] 2 puff IH BIDR 10/03/16 [ History] Escitalopram [Lexapro] 20 mg PO DAILY 10/03/16 [History] Gabapentin [Neurontin] 1,200 mg PO TID 10/03/16 [History] Trazodone HCl 150 - 300 mg PO HS PRN 10/03/16 [History] Verapamil ER (24 HR) [Calan SR] 120 mg PO DAILY 10/03/16 [History] ClonazePAM [Klonopin] 0.5 mg PO BID PRN #10 tablet 10/07/16 [Rx] Nitrofurantoin [Macrodantin] 50 mg PO Q6HR #28 capsule 10/07/16 [Rx] Phenazopyridine HCl [Pyridium] 200 mg PO TIDAC #15 tab 10/07/16 [Rx] Quetiapine Fumarate [Seroquel] 400 mg PO HS #28 tablet 10/07/16 [Rx] Topiramate [Topamax] 100 mg PO TID #90 tablet 10/07/16 [Rx] Allergies/Adverse Reactions: Allergies aripiprazole [From Abilify] Allergy (Verified 08/30/16 16:10) Difficulty Breathing aspirin Allergy (Verified 08/30/16 16:10) Difficulty Breathing ibuprofen Allergy (Verified 08/30/16 16:10) Difficulty Breathing latex Allergy (Verified 08/30/16 16:10) Difficulty Breathing metronidazole [From Flagyl] Allergy (Verified 08/30/16 16:10) Difficulty Breathing naproxen [From Aleve] Allergy (Verified 08/30/16 16:10) Difficulty Breathing Sulfa (Sulfonamide Antibiotics) Allergy (Verified 08/30/16 16:10) Vomiting Date of admission: 10/04/16 15:56 Primary care physician: PCP NO Consults: 10/04/16 09:58 Consult to Psychiatry [CONS] Routine Consulting Provider: [facility] Reason for Consult: schizophrenia, transferred from . Call Completed: Yes 10/04/16 12:43 Consult to Neurology [CONS] Routine Consulting Provider: [facility] Reason for Consult: known to Dr Baltazar. seizure-like activity this am, now with tremors Time Notified: 12:43 Call Completed: Yes Discharging clinician: Alice Villagomez Anticipated date of discharge: 10/07/16 (sending to inpatient ) - Patient Status Disposition: Transfer Psychiatric Hosp Condition: Fair Functional capacity at discharge: independent ambulation Overall status at discharge: patient is progressing back to baseline - Discharge Instructions Follow Up With: June Moreno CNP [Advanced Practice Nurse] - Sissy Carbajal MD [Partnered Physician] - Additional Instructions: Follow-up with primary care provider as scheduled - Diet and Activity Activity: increase activity as tolerated Diet: regular diet Hospital course: Ms. Mendoza is a 36 year old female with extensive psychiatric past medical history of schizophrenia, bipolar, prior suicidal attempts and prior psychiatric hospitalizations, hypertension, asthma, hypothyroidism, COPD, migraines, seizures. Patient was initially brought to the emergency department as her family states she was having a psychotic break. She states she woke up on the day of presentation was having suicidal thoughts and was noted to be nonresponsive in the emergency department since she was admitted to the psychiatric unit for depression and schizophrenia. While in that unit, she complained of abdominal pain since she was transferred to inpatient hospitalist service. She was noted to have a urinary tract infection and was started on ceftriaxone. Patient had what appeared to be a pseudoseizure on the first day of her admission, no further episodes during the remainder of her admission. Patient's regular home medications were resumed and she was noted to be too sedated so her Topamax was decreased, her Seroquel and her clonazepam were also decreased and she became much more alert and interactive. Urine culture consistent with Escherichia coli sensitive to cephalosporins and nitrofurantoin however patient also showed pancytopenia which is likely secondary to cephalosporin so she was taken off ceftriaxone and started on nitrofurantoin in her pancytopenia started to improve. She did not display any evidence of sepsis or instability during this admission. She did have an initial positive blood culture however repeat blood cultures were negative and initial positive result was highly suspected to be a contamination. ABGs unremarkable. Hypokalemia and hypomagnesemia both resolved. Lactic acid normal. Ammonia levels normal. Throughout this admission, patient would not speak very much to staff and would only answer yes or no questions. Now that she was medically stable, she was transferred back to the inpatient psychiatric care for further evaluation. She was discharged inpatient psychiatric care in stable condition. - Time Spent with Patient Total time spent providing and/or coordinating discharge services: - Constitutional Vitals: Temp Pulse Resp BP Pulse Ox 97.6 F 94 14 112/77 97 10/07/16 14:59 10/07/16 14:59 10/07/16 14:59 10/07/16 14:59 10/07/16 14:59 General appearance: Present: disheveled, A&O X 3, no acute distress, answers questions appropriately ( simple yes/no questions) - Head Head exam: Present: atraumatic, normocephalic - Eye Eye exam: Present: PERRL, conjuntiva pink, sclera anicteric Pupils: Present: PERRL - Neck Neck exam general surgery: Present: supple, trachea midline. Absent: lymphadenopathy - Respiratory Respiratory exam: Present: CTAB. Absent: accessory muscle use, rales, respiratory distress, rhonchi, wheezes - Cardiovascular Cardiovascular exam: Present: RRR, +S1, +S2. Absent: diastolic murmur, gallop, rubs, systolic murmur - GI/Abdominal GI/Abdominal exam: Present: normal bowel sounds, soft, tenderness (Suprapubic), no peritoneal signs. Absent: distended - Extremities Exam Extremities exam: Present: warm, radial pulses palpable and symetrical. Absent : calf tenderness, cyanotic, pedal edema - Neurological Exam Neurological exam: Present: alert, CN II-XII intact, oriented X3, no focal deficits, strengths equal and symetr throughout. Absent: pronater drift, facial droop, speech deficit - Psychiatric Psychiatric exam: Present: flat affect. Absent: suicidal ideation - Expanded Psychiatric Exam Focused psych exam: Present: catatonic - Skin Skin exam: Present: dry, intact, pallor, warm
[2016-10-07] MEDS ORDERED: Aminoglycoside Consult 1 EACH MC ONE (19:26)
== END 2016-10-07 19:27 | DRG 690 ==
LOC: 3BNU → SUATTDRO 16:04 → 3BNU 18:58
PROVIDERS: ADMIT Internal Medicine; ATTEND Nurse Practitioner Family

== ENCOUNTER 2017-07-08 16:38 | Inpatient (IN) ==
[2017-07-08] MEDS ORDERED: 0.9 % Sodium Chloride 1,000 ML IVC ONE ×2 (16:51→19:25)
[2017-07-08] MEDS ORDERED: Ondansetron 4 MG/2 ML VIAL IVP ONE (16:51)
[2017-07-08 17:17] LABS: Hematocrit 28.3 % (35.3-44.9); Hemoglobin 9.2 g/dL (11.5-15.4); Mean Corpuscular HGB Conc 32.5 g/dL (31.6-35.5); Platelet Count 131 K/mcL (140-400); Red Cell Distribution Width 15.2 % (11.5-14.5)
[2017-07-08 17:31] LABS: Basophils % 0.4 %; Eosinophils # 0.1 K/mcL (0.0-0.6); Eosinophils % 1.2 %; Lymphocytes # 2.2 K/mcL (0.6-4.6); Lymphocytes % 23.1 %; Mean Corpuscular Volume 89.3 fL (83.0-100.0); Mean Platelet Volume 12.2 fL (9.4-12.4); Monocytes % 10.8 %; Red Blood Count 3.17 M/mcL (3.82-4.97); Segmented Neutrophils % 62.5 %
--- NOTE | 2017-07-08 17:32 | Emergency Department Note ---
Disposition Clinical Impression: Colitis, Hypokalemia Disposition: Admitted As Inpatient Condition: Fair Time of Disposition: 21:14 General Adult HPI - General Chief complaint: ED Nausea/Vomiting/Diarrhea Stated complaint: Dehydration Time Seen by Provider: 07/08/17 16:50 Source: patient Limitations: no limitations Nursing Notes Reviewed: Yes Vital Signs Reviewed: Yes - History of Present Illness HPI Narrative: Patient is a 36-year-old female presents to the emergency department for weakness and possible dehydration. The family states that she was in the emergency Department couple weeks ago and was diagnosed dehydration. The family states that she has been vomiting and feeling sick. States that she has not been eating or drinking very well. They state that if she walks a short distance and she becomes much more fatigued than normal. She states nothing seems to make this any better or worse. The patient reports that she has been having chest pain located in the center of her chest with no radiation. States that she is just unable to catch her breath when she has chest pain. She rates it as a 7 out of 10. Patient denies any lightheadedness or dizziness. Patient denies any previous cardiac history. Pain Scale: 0 - Related Data Home Medications Medication Instructions Recorded Confirmed Albuterol Sulfate [Albuterol 2 puff IH Q4H PRN 07/28/15 10/08/16 Inhaler] Omeprazole [PriLOSEC] 20 mg PO DAILY 07/28/15 10/08/16 Levothyroxine [Synthroid] 125 mcg PO QAM 11/30/15 10/08/16 Potassium Chloride 10 meq PO DAILY 11/30/15 10/08/16 Vitamin E 1,000 unit PO DAILY 11/30/15 10/08/16 hydroCHLOROthiazide 25 mg PO DAILY 11/30/15 10/08/16 [Hydrochlorothiazide] Budesonide/Formoterol 160/4.5 2 puff IH BIDR 10/03/16 10/08/16 [Symbicort 160/4.5] Escitalopram [Lexapro] 20 mg PO DAILY 10/03/16 10/08/16 Gabapentin [Neurontin] 1,200 mg PO TID 10/03/16 10/08/16 Verapamil ER (24 HR) [Calan SR] 120 mg PO DAILY 10/03/16 10/08/16 Previous Rx's Medication Instructions Recorded Nitrofurantoin [Macrodantin] 50 mg PO Q6HR #28 capsule 10/07/16 Quetiapine Fumarate [Seroquel] 400 mg PO HS #28 tablet 10/07/16 Topiramate [Topamax] 100 mg PO TID #90 tablet 10/07/16 clonazePAM [Klonopin] 0.5 mg PO BID PRN #10 tablet 10/07/16 Amantadine [Symmetrel] 100 mg PO BID #60 capsule 10/11/16 Phenazopyridine HCl [Pyridium] 200 mg PO TIDAC #15 tab 10/11/16 traZODone [TraZODone] 200 mg PO HS PRN #60 tablet 10/11/16 Allergies Allergy/AdvReac Type Severity Reaction Status Date / Time aripiprazole [From Abilify] Allergy Difficulty Verified 06/28/17 16:26 Breathing aspirin Allergy Difficulty Verified 06/28/17 16:26 Breathing ibuprofen Allergy Difficulty Verified 06/28/17 16:26 Breathing latex Allergy Difficulty Verified 06/28/17 16:26 Breathing metronidazole [From Flagyl] Allergy Difficulty Verified 06/28/17 16:26 Breathing naproxen [From Aleve] Allergy Difficulty Verified 06/28/17 16:26 Breathing Sulfa (Sulfonamide Allergy Vomiting Verified 06/28/17 16:26 Antibiotics) All systems ED: reviewed and negative except as stated. Constitutional: Reports: weakness Cardiovascular: Reports: chest pain Respiratory: Reports: dyspnea Gastrointestinal: Reports: nausea, vomiting, diarrhea Past Medical History - Past Medical History Medical history: Reports: arthritis, asthma, COPD, GERD, hypertension, migraine , osteoporosis, seizures, thyroid disease, syncope, other Surgical history: Reports: orthopedic, other, sinus surgery, other Psychiatric history: Reports: anxiety, bipolar, depression, prior suicide attempt, schizophrenia, previous psychiatric hospitalization, other BRAND PLANNER history: Reports: no BRAND PLANNER history - Social History Smoking Status: Former smoker Smokeless Tobacco Status: No Alcohol use: Reports: none Drug use: Reports: none Physical Exam - General Limitations: no limitations General appearance: alert, in no apparent distress - Head Head exam: atraumatic, normocephalic - Eye Eye exam: Present: normal appearance, EOMI - ENT ENT exam: normal exam, normal oropharynx, mucous membranes dry - Neck Neck exam: Present: normal inspection, full ROM, trachea midline - Respiratory Respiratory exam: Present: normal lung sounds bilaterally. Absent: respiratory distress, wheezes - Cardiovascular Cardiovascular exam: Present: regular rate, normal rhythm, normal heart sounds, +S1, +S2 - Abdominal Exam Abdominal exam: Present: soft, tenderness, normal bowel sounds Abdominal tenderness: Present: diffuse, mild - Neurological Exam Neurological exam: Present: alert, oriented X3 - Psychiatric Psychiatric exam: Present: normal mood, flat affect - Skin Skin exam: Present: warm, dry, intact Course Vital Signs Temperature 98.0 F 07/08/17 16:45 Pulse Rate 69 07/08/17 16:45 Respiratory Rate 18 07/08/17 16:45 Blood Pressure 87/48 07/08/17 16:45 O2 Sat by Pulse Oximetry 100 07/08/17 16:45 Temperature 98.0 F 07/08/17 16:45 Pulse Rate 77 07/08/17 20:30 Respiratory Rate 14 07/08/17 22:05 Blood Pressure 94/50 07/08/17 22:05 O2 Sat by Pulse Oximetry 99 07/08/17 20:30 Oxygen Delivery Oxygen Delivery Room Air Medical Decision Making - MDM Narrative Medical decision making narrative: The patient presents emergency department for possible dehydration and weakness. We have ordered laboratory testings and a CT of the abdomen and pelvis. Patient had a potassium of 2.3. We have replaced the potassium orally and through IV potassium. Patient does have an elevated lipase, ALT and alkaline phosphatase this could be related to a possible pancreatitis. CT scan of the abdomen and pelvis showed possible colitis could be related to infectious or inflammatory process. We will start the patient on Zosyn due to the patient having an allergy to Flagyl. The patient has been sitting IV fluids which seemed to have maintain her blood pressure in the low 100s. I called and spoke with the hospitalist and they have accepted the patient to their service. The patient will be admitted to the hospital at this time. - Medical Records Medical records reviewed: Yes I reviewed the patient's medical records. - Lab Data Lab results reviewed: Yes I reviewed the patient's lab results. Result diagrams: 07/08/17 17:08 07/08/17 17:08 Lab Results 07/08/17 07/08/17 07/08/17 Range/Units 17:08 17:08 17:08 WBC 9.6 (4.3-11.1) K/mcL RBC 3.17 L (3.82-4.97) M/mcL Hgb 9.2 L (11.5-15.4) g/dL Hct 28.3 L (35.3-44.9) % MCV 89.3 (83.0-100.0) fL MCH 29.0 (28.0-33.3) pg MCHC 32.5 (31.6-35.5) g/dL RDW 15.2 H (11.5-14.5) % Plt Count 131 L (140-400) K/mcL MPV 12.2 (9.4-12.4) fL Immature Gran % 2.0 (0-4) % Seg Neutrophils % 62.5 % Lymphocytes % 23.1 % Monocytes % 10.8 % Eosinophils % 1.2 % Basophils % 0.4 % Neutrophils # 6.0 (1.6-8.9) K/mcL Lymphocytes # 2.2 (0.6-4.6) K/mcL Monocytes # 1.0 (0.0-1.3) K/mcL Eosinophils # 0.1 (0.0-0.6) K/mcL Basophils # 0.0 (0.0-0.2) K/mcL Sodium 138 (136-145) mEq/L Potassium 2.3 L* (3.5-5.1) mEq/L Chloride 103 (98-107) mEq/L Carbon Dioxide 25 (23-29) mEq/L BUN 17 (6-20) mg/dL Creatinine 1.17 (0.60-1.20) mg/dL Est GFR ( Amer) > 60 (> 60) Est GFR (Non-Af Amer) 52 L (> 60) BUN/Creatinine Ratio 15 (6-26) Glucose 123 H (70-105) mg/dL Calculated Osmolality 289 (280-300) Calcium 9.0 (8.6-10.3) mg/dL Total Bilirubin 0.4 (0.3-1.0) mg/dL AST 35 (13-39) Units/L ALT 67 H (7-52) Units/L Alkaline Phosphatase 110 H (34-104) Units/L Troponin I < 0.03 (< 0.04) ng/mL Serum Total Protein 6.1 L (6.4-8.9) g/dL Albumin 3.5 (3.5-5.7) g/dL Globulin 2.6 (2.4-3.5) g/dL Albumin/Globulin Ratio 1.3 (1.1-2.2) Lipase 89 H (11-82) Units/L Urine Color (Yellow) Urine Clarity (Clear) Urine pH (5.0-8.0) pH Units Ur Specific [place] (1.010-1.025) Urine Protein (Neg-Trace) mg/dL Urine Glucose (UA) (Normal) mg/dL Urine Ketones (Negative) mg/dL Urine Blood (Negative) Urine Nitrite (Negative) Urine Bilirubin (Negative) Urine Urobilinogen (Normal) mg/dL Ur Leukocyte Esterase (Negative) Urine Microscopic RBC (0-3) per hpf Urine Microscopic WBC (0-3) per hpf Ur Squamous Epith Cells (None-Few) per lpf Ur Renal Epithelial Cell (None-Few) per hpf Urine Bacteria (None-Few) per hpf Hyaline Casts (None-Few) per lpf Ur Culture Indicated? (NO) Urine Test (Negative) Stl C. diff Tox B Gene (Negative) 07/08/17 07/08/17 07/08/17 Range/Units 18:50 19:31 19:31 WBC (4.3-11.1) K/mcL RBC (3.82-4.97) M/mcL Hgb (11.5-15.4) g/dL Hct (35.3-44.9) % MCV (83.0-100.0) fL MCH (28.0-33.3) pg MCHC (31.6-35.5) g/dL RDW (11.5-14.5) % Plt Count (140-400) K/mcL MPV (9.4-12.4) fL Immature Gran % (0-4) % Seg Neutrophils % % Lymphocytes % % Monocytes % % Eosinophils % % Basophils % % Neutrophils # (1.6-8.9) K/mcL Lymphocytes # (0.6-4.6) K/mcL Monocytes # (0.0-1.3) K/mcL Eosinophils # (0.0-0.6) K/mcL Basophils # (0.0-0.2) K/mcL Sodium (136-145) mEq/L Potassium (3.5-5.1) mEq/L Chloride (98-107) mEq/L Carbon Dioxide (23-29) mEq/L BUN (6-20) mg/dL Creatinine (0.60-1.20) mg/dL Est GFR ( Amer) (> 60) Est GFR (Non-Af Amer) (> 60) BUN/Creatinine Ratio (6-26) Glucose (70-105) mg/dL Calculated Osmolality (280-300) Calcium (8.6-10.3) mg/dL Total Bilirubin (0.3-1.0) mg/dL AST (13-39) Units/L ALT (7-52) Units/L Alkaline Phosphatase (34-104) Units/L Troponin I (< 0.04) ng/mL Serum Total Protein (6.4-8.9) g/dL Albumin (3.5-5.7) g/dL Globulin (2.4-3.5) g/dL Albumin/Globulin Ratio (1.1-2.2) Lipase (11-82) Units/L Urine Color Yellow (Yellow) Urine Clarity Cloudy A (Clear) Urine pH 6.0 (5.0-8.0) pH Units Ur Specific [place] 1.016 (1.010-1.025) Urine Protein Negative (Neg-Trace) mg/dL Urine Glucose (UA) Normal (Normal) mg/dL Urine Ketones Negative (Negative) mg/dL Urine Blood Negative (Negative) Urine Nitrite Negative (Negative) Urine Bilirubin Negative (Negative) Urine Urobilinogen Normal (Normal) mg/dL Ur Leukocyte Esterase Moderate H (Negative) Urine Microscopic RBC 0-3 (0-3) per hpf Urine Microscopic WBC 5-15 H (0-3) per hpf Ur Squamous Epith Cells Many H (None-Few) per lpf Ur Renal Epithelial Cell Moderate H (None-Few) per hpf Urine Bacteria Few (None-Few) per hpf Hyaline Casts Few (None-Few) per lpf Ur Culture Indicated? NO (NO) Urine Test Negative (Negative) Stl C. diff Tox B Gene Negative (Negative) - Radiology Data Radiology results reviewed: Yes I reviewed the patient's radiology results. Abdomen/Pelvis CT 07/08/17 17:09 IMPRESSION: Evidence of colitis, infectious or inflammatory. D/ / Marleny Chavis Cha, MD / Marleny Chavis Cha, MD Interpreting Provider: Marleny Chavis Cha, MD - EKG Data EKG #1 EKG attestation: Yes I reviewed and interpreted this EKG. EKG results narrative: EKG showed a sinus rhythm at a rate of 74 bpm, ND interval of 147, restriction of 114, QTc of 317 with a normal axis. There are some nonspecific T-wave changes. Attestation Statement - Attestation Attestation: I, Sebastian Hardy, examined this patient and my medical decision-making was reviewed with the TOUR DRIVER/PA/Advanced Practice Nurse/Resident Physician. I agree with the documented findings, disposition and treatment plan as described except to the extent set forth below. 36-year-old female presents emergency Department with concerns of nausea, vomiting, diarrhea and concerns of possible dehydration. Patient is hypotensive on initial evaluation emergency department. This improved with IV fluids. Patient complains of pain to the generalized abdomen but has a difficult time localizing the pain. CT of the abdomen and pelvis shows inflammation of the colon with likely colitis. Patient is hypokalemic and was given potassium replacement in the emergency department. C. difficile toxin assay ordered from the emergency department. Patient started on Zosyn secondary to an allergy to metronidazole. Patient has not vomited in the emergency department. She will be admitted to the hospital for further care and evaluation.
[2017-07-08 17:42] LABS: Alanine Aminotransferase 67 Units/L (7-52); Albumin 3.5 g/dL (3.5-5.7); Albumin/Globulin Ratio 1.3 (1.1-2.2); Alkaline Phosphatase 110 Units/L (34-104); Aspartate Amino Transferase 35 Units/L (13-39); BUN/Creatinine Ratio 15 (6-26); Bilirubin,Total 0.4 mg/dL (0.3-1.0); Blood Urea Nitrogen 17 mg/dL (6-20); Carbon Dioxide 25 mEq/L (23-29); Chloride 103 mEq/L (98-107); Globulin 2.6 g/dL (2.4-3.5); Glucose 123 mg/dL (70-105); Lipase 89 Units/L (11-82); Osmolality,Calculated 289 (280-300); Potassium 2.3 mEq/L (3.5-5.1); Sodium 138 mEq/L (136-145); Total Protein 6.1 g/dL (6.4-8.9); eGFR For African Americans > 60 (> 60); eGFR For Non-African Americans 52 (> 60)
[2017-07-08] MEDS ORDERED: Potassium Chloride Elixir 20 MEQ/15 ML UDC PO ONE (17:49)
[2017-07-08] MEDS ORDERED: 0.9 % Sodium Chloride 1,000 ML ONE (19:25)
[2017-07-08 19:37] LABS: Bilirubin,Urine Negative (Negative); Blood,Urine Negative (Negative); Clarity,Urine Cloudy (Clear); Color,Urine Yellow (Yellow); Glucose,Urine (UA) Normal (Normal); Ketones,Urine Negative (Negative); Leukocyte Esterase,Urine Moderate (Negative); Nitrite,Urine Negative (Negative); Protein,Urine Negative (Neg-Trace); Specific Gravity,Urine 1.016 (1.010-1.025); Urobilinogen,Urine Normal (Normal)
[2017-07-08 19:40] LABS: Hyaline Casts,Urine Few per lpf (None-Few); RBC,Urine 0-3 per hpf (0-3); Squamous Epithelial Cell,Urine Many per lpf (None-Few)
[2017-07-08 19:49] LABS: Renal Epithelial Cells,Urine Moderate per hpf (None-Few)
[2017-07-08 19:50] LABS: Bacteria,Urine Few per hpf (None-Few)
[2017-07-08] MEDS ORDERED: Piperacillin/Tazobactam 3.375 GM in Water for inj. (sterile) 20 ML IVP ONE ×2 (21:06→22:00)
[2017-07-08] MEDS ORDERED: Acetaminophen 325 MG TABLET PO PRN (22:01)
[2017-07-08] MEDS ORDERED: Naloxone 0.4 MG/ML INJ IVP PRN (22:01)
[2017-07-08] MEDS ORDERED: Melatonin 3 MG TABLET PO PRN (22:08)
--- NOTE | 2017-07-08 23:09 | Internal Med History&Physical ---
Date of Encounter: 07/08/17 Time of Encounter: 23:09 Assessment and Plan (1) Colitis Current visit: Yes Status: Acute Continue IV fluids normal saline at 150 ml/hr. She is allergic to Flagyl, will continue Zosyn. C diff PCR negative. Will obtain stool studies. (2) Dehydration Current visit: No Status: Resolved received 2L ED. She appears dehydrated on exam MM are dry. Will continue normal saline IV at 150 ml/hr. (3) Hypokalemia Current visit: Yes Status: Acute Will replace and recheck. Also check magnesium level and replace as needed. No EKG abnormalities. Continue telemetry monitoring. (4) Essential hypertension Current visit: Yes Status: Acute Hold hydrochlorothiazide to prevent electrolyte loss. BP is low so hold Varapamil as well for now. (5) Anemia Current visit: No Status: Chronic Possibly chronic kidney disease but patient has had poor appetite recently. No signs of acute bleed. Will monitor H&H. Qualifiers: Anemia type: folate deficiency Folate deficiency anemia type: unspecified folate deficiency Qualified Code(s): D52.9 - Folate deficiency anemia, unspecified (6) Chronic kidney disease (CKD) Current visit: Yes Status: Acute Reviewed GFR and Cr from throughout 2017. Most GFR in past few months <60, and patient is dehydrated. Will give IV fluid and avoid nephrotoxic medications. Qualifiers: Chronic kidney disease stage: unspecified stage Qualified Code(s): N18.9 - Chronic kidney disease, unspecified (7) Schizoaffective disorder, bipolar type Current visit: No Status: Acute (8) Debility, unspecified Current visit: No Status: Chronic (9) Movement disorder Current visit: No Status: Chronic (10) Bipolar depression Current visit: No Status: Chronic (11) Former heavy cigarette smoker (20-39 per day) Current visit: No Status: Chronic Internal Medicine - H&P: HPI History of present illness: Patient is a 36-year-old female presents to the emergency department for weakness, diarrhea, N/V. The patient was in emergency department couple weeks ago for dehydration. She has had poor appetite, denies fevers/chills, melena, hematochezia. She /becomes fatigued with short amount of ambulation. She reports to ED physician she has 7/10 chest pain, currently not having at the moment. Patient denies any lightheadedness or dizziness. No sick contacts. In the ED she had a CT abdomen/pelvis with findings consistent with colitis. A c diff PCR was done and is negative. She was found to be hypotensive with BP 87 /48 initially with HR wnl, eventually got up to 101/48 with again normal HR. She is afebrile without leukocytosis, hypokalemic at 2.3 without arrhythmia. In the ED she had potassium replacement and 2L IVF given. Past Med Surg Social Fam HX - Past Medical History Medical history: arthritis, asthma, COPD, GERD, hypertension, migraine, osteoporosis, seizures, thyroid disease, syncope, other Psychiatric history: anxiety, bipolar, depression, prior suicide attempt, schizophrenia, previous psychiatric hospitalization, other - Past Surgical History Surgical History: orthopedic, other, sinus surgery, other - Social History Smoking Status: Former smoker Smokeless Tobacco Status: No Alcohol use: none Drug use: none - Family History Mother Daughter Family Member Ethnicity: Non- Mother Hx Family Respiratory Disorders: Yes Hx Family Cancer: Yes Internal Medicine - H&P: Meds Albuterol Sulfate [Albuterol Inhaler] 2 puff IH Q4H PRN 07/28/15 [History] Omeprazole [PriLOSEC] 20 mg PO DAILY 07/28/15 [History] Levothyroxine [Synthroid] 125 mcg PO QAM 11/30/15 [History] Potassium Chloride 10 meq PO DAILY 11/30/15 [History] Vitamin E 1,000 unit PO DAILY 11/30/15 [History] hydroCHLOROthiazide [Hydrochlorothiazide] 25 mg PO DAILY 11/30/15 [History] Budesonide/Formoterol 160/4.5 [Symbicort 160/4.5] 2 puff IH BIDR 10/03/16 [ History] Escitalopram [Lexapro] 20 mg PO DAILY 10/03/16 [History] Gabapentin [Neurontin] 1,200 mg PO TID 10/03/16 [History] Verapamil ER (24 HR) [Calan SR] 120 mg PO DAILY 10/03/16 [History] Nitrofurantoin [Macrodantin] 50 mg PO Q6HR #28 capsule 10/07/16 [Rx] Quetiapine Fumarate [Seroquel] 400 mg PO HS #28 tablet 10/07/16 [Rx] Topiramate [Topamax] 100 mg PO TID #90 tablet 10/07/16 [Rx] clonazePAM [Klonopin] 0.5 mg PO BID PRN #10 tablet 10/07/16 [Rx] Amantadine [Symmetrel] 100 mg PO BID #60 capsule 10/11/16 [Rx] Phenazopyridine HCl [Pyridium] 200 mg PO TIDAC #15 tab 10/11/16 [Rx] traZODone [TraZODone] 200 mg PO HS PRN #60 tablet 10/11/16 [Rx] 3 Allergy/AdvReac Type Severity Reaction Status Date / Time aripiprazole [From Abilify] Allergy Difficulty Verified 06/28/17 16:26 Breathing aspirin Allergy Difficulty Verified 06/28/17 16:26 Breathing ibuprofen Allergy Difficulty Verified 06/28/17 16:26 Breathing latex Allergy Difficulty Verified 06/28/17 16:26 Breathing metronidazole [From Flagyl] Allergy Difficulty Verified 06/28/17 16:26 Breathing naproxen [From Aleve] Allergy Difficulty Verified 06/28/17 16:26 Breathing Sulfa (Sulfonamide Allergy Vomiting Verified 06/28/17 16:26 Antibiotics) All Systems PM: A 10-system review of systems was performed and is negative for pertinent findings except as documented above in the HPI. - Constitutional Constitutional: fatigue, malaise, weakness, no chills, no excessive sweating, no fever(s), no weight gain, no weight loss - EENT Eyes: no change in vision, no discharge, no pain, no photophobia Nose, mouth and throat: no dysphagia, no nasal discharge, no neck pain, no sore throat - Cardiovascular Cardiovascular ROS IM: chest pain (resolved), dyspnea on exertion, no irregular heart rhythm, no paroxysmal nocturnal dyspnea, no syncope, no other - Respiratory Respiratory: dyspnea on exertion, no wheezing, no snoring, no stridor, no pain on inspiration, no excessive phlegm production, no change in phlegm color - Gastrointestinal Gastrointestinal: diarrhea, loose stools, nausea, vomiting, no belching, no bloating, no heartburn, no hematemesis, no hematochezia, no melena - Genitourinary Genitourinary: no change in urinary stream, no dysuria, no flank pain, no hematuria - Integumentary Integumentary IM: no rash, no unusual bruising - Neurological Neurological ROS: no confusion, no convulsions, no focal weakness, no numbness, no tingling, no tremor(s) - Constitutional Vitals: Temp Pulse Resp BP Pulse Ox 98.0 F 77 14 94/50 99 07/08/17 16:45 07/08/17 20:30 07/08/17 22:05 07/08/17 22:05 07/08/17 20:30 General appearance: Present: A&O X 3, no acute distress, answers questions appropriately - Head Head exam: Present: atraumatic - Eye Eye exam: Present: PERRL, conjuntiva pink, sclera anicteric - ENT ENT exam: Present: mucous membranes dry - Neck Neck exam general surgery: Present: normal inspection. Absent: lymphadenopathy - Respiratory Respiratory exam: Present: CTAB. Absent: accessory muscle use, rales, rhonchi, wheezes - Cardiovascular Cardiovascular exam: Present: RRR - GI/Abdominal GI/Abdominal exam: Present: normal bowel sounds, soft, no peritoneal signs. Absent: distended, tenderness - Extremities Exam Extremities exam: Present: warm, radial pulses palpable and symmetrical. Absent : calf tenderness, cyanotic, pedal edema - Skin Skin exam: Present: dry, intact Internal Med - H&P Results - Labs CBC & Chem 7: 07/08/17 17:08 07/08/17 17:08
[2017-07-08] MEDS: 0.9 % Sodium Chloride 1,000 ML IVC SCH (23:40)
[2017-07-09] MEDS ORDERED: Piperacillin/Tazobactam 3.375 GM/200 ML BAG IVPB SCH
[2017-07-09 03:56] LABS: Basophils % 0.5 %; Eosinophils # 0.1 K/mcL (0.0-0.6); Eosinophils % 1.4 %; Hematocrit 24.4 % (35.3-44.9); Hemoglobin 7.8 g/dL (11.5-15.4); Immature Granulocytes % 2.3 % (0-4); Lymphocytes # 2.3 K/mcL (0.6-4.6); Lymphocytes % 29.1 %; Mean Corpuscular Hemoglobin 28.8 pg (28.0-33.3); Mean Platelet Volume 12.2 fL (9.4-12.4); Monocytes # 0.9 K/mcL (0.0-1.3); Monocytes % 11.4 %; Neutrophils # 4.3 K/mcL (1.6-8.9); Platelet Count 104 K/mcL (140-400); Red Blood Count 2.71 M/mcL (3.82-4.97); Red Cell Distribution Width 15.3 % (11.5-14.5); Segmented Neutrophils % 55.3 %
[2017-07-09] MEDS ORDERED: Potassium Chloride Elixir 20 MEQ/15 ML UDC PO ONE ×3 (04:06→12:14)
[2017-07-09 04:27] LABS: Alanine Aminotransferase 58 Units/L (7-52); Albumin 2.9 g/dL (3.5-5.7); Albumin/Globulin Ratio 1.3 (1.1-2.2); Alkaline Phosphatase 92 Units/L (34-104); Aspartate Amino Transferase 33 Units/L (13-39); BUN/Creatinine Ratio 14 (6-26); Bilirubin,Total 0.4 mg/dL (0.3-1.0); Blood Urea Nitrogen 12 mg/dL (6-20); Calcium 8.1 mg/dL (8.6-10.3); Carbon Dioxide 25 mEq/L (23-29); Chloride 111 mEq/L (98-107); Globulin 2.2 g/dL (2.4-3.5); Glucose 99 mg/dL (70-105); Magnesium 1.7 mg/dL (1.6-2.6); Osmolality,Calculated 294 (280-300); Phosphorous 3.5 mg/dL (2.7-4.5); Potassium 2.4 mEq/L (3.5-5.1); Sodium 142 mEq/L (136-145); Total Protein 5.1 g/dL (6.4-8.9); eGFR For African Americans > 60 (> 60); eGFR For Non-African Americans > 60 (> 60)
[2017-07-09] MEDS: 0.9 % Sodium Chloride 1,000 ML IVC SCH ×3 (10:03→14:54)
[2017-07-09] MEDS ORDERED: Potassium Chloride 40 MEQ, Lidocaine 1% 2 ML in D5% in Water 500 ML IVPB ONE (10:39)
[2017-07-09] MEDS: Piperacillin/Tazobactam 3.375 GM/200 ML BAG IVPB SCH ×3 (10:40→21:21)
--- NOTE | 2017-07-09 10:44 | Internal Med Progress Note ---
Date of Encounter: 07/09/17 Time of Encounter: 08:00 - Assessment and plan (1) Colitis Current Visit: Yes Status: Acute Assessment and plan: We will continue with the IV antibiotics with Zosyn for now. This possibly could be just viral. We will continue with IV hydration. Check lactic acid. Follow up on the stool cultures. She is C. difficile negative. (2) Hypokalemia Current Visit: Yes Status: Acute Assessment and plan: The patient's potassium went up to 2.4 only. She only received 10 mEq. I will give her 40 of IV potassium as well as 60 orally. We will check labs in the morning. This is expected given the nausea and vomiting and the diarrhea. (3) Anemia Current Visit: No Status: Chronic Assessment and plan: I believe this is mostly dilutional given the IV fluids. She has no signs of bleeding. We will continue to monitor. Qualifiers: Anemia type: folate deficiency Folate deficiency anemia type: unspecified folate deficiency Qualified Code(s): D52.9 - Folate deficiency anemia, unspecified (4) Schizoaffective disorder, bipolar type Current Visit: No Status: Acute Assessment and plan: Not exactly sure what the patient is on. The patient has significant tremors. We will have to get her medication list and restart her antipsychotics. The patient seems to be suffering from some tardive dyskinesia. (5) FAISAL (acute kidney injury) Current Visit: Yes Status: Acute Assessment and plan: Continue with IV fluids. This is improving. Avoid nephrotoxins. (6) DVT prophylaxis Current Visit: Yes Status: Acute Assessment and plan: Lovenox. (7) Physical deconditioning Current Visit: No Status: Chronic Assessment and plan: The patient seems very deconditioned for her stated age. We will get physical therapy to see the patient. - Subjective Interval history: Patient was admitted with nausea and vomiting. She has been having loose stools. CT was with evidence of colitis. She denies any fever. She was hypotensive on admission and remains hypotensive. Otherwise no issues. There was report of some chest pain on admission however she has no chest pain this morning. - Constitutional Vitals: Temp Pulse Resp BP Pulse Ox 98.2 F 94 18 91/50 95 07/09/17 08:15 07/09/17 08:15 07/09/17 08:15 07/09/17 08:15 07/09/17 08:15 General appearance: Present: A&O X 3, no acute distress, answers questions appropriately Exam: GEN: NAD CVS: RRR. S1, S2, No m/r/g RESP: CTAB ABD: Soft, NT, ND, +BS EXT: No edema. 2+ DP. No rashes NEURO: Nonfocal Internal Medicine: Result - Labs CBC & Chem 7: 07/09/17 03:45 07/09/17 03:45 Labs: Short CBC 07/09/17 Range/Units 03:45 WBC 7.7 (4.3-11.1) K/mcL Hgb 7.8 L (11.5-15.4) g/dL Hct 24.4 L (35.3-44.9) % Plt Count 104 L (140-400) K/mcL Neutrophils # 4.3 (1.6-8.9) K/mcL BMP 07/09/17 03:45 Sodium 142 Potassium 2.4 L* Chloride 111 H Carbon Dioxide 25 BUN 12 Creatinine 0.88 Glucose 99 Calcium 8.1 L Liver Function 07/09/17 Range/Units 03:45 Total Bilirubin 0.4 (0.3-1.0) mg/dL AST 33 (13-39) Units/L ALT 58 H (7-52) Units/L Alkaline Phosphatase 92 (34-104) Units/L Albumin 2.9 L (3.5-5.7) g/dL Consult Discharge Plan - Plan Referrals: Pierre Duran MD [Primary Care Provider] -
[2017-07-09] MEDS ORDERED: Potassium Chloride 20 MEQ, Lidocaine 1% 2 ML in D5% in Water 250 ML IVPB ONE (12:15)
[2017-07-09] MEDS: Ondansetron 4 MG/2 ML VIAL IVP PRN (21:20)
[2017-07-10] MEDS: 0.9 % Sodium Chloride 1,000 ML IVC SCH ×4 (00:03→19:11)
[2017-07-10 05:10] LABS: Basophils % 0.4 %; Eosinophils # 0.1 K/mcL (0.0-0.6); Eosinophils % 1.6 %; Hemoglobin 7.6 g/dL (11.5-15.4); Lymphocytes # 1.7 K/mcL (0.6-4.6); Lymphocytes % 19.3 %; Mean Corpuscular HGB Conc 31.7 g/dL (31.6-35.5); Mean Corpuscular Hemoglobin 29.2 pg (28.0-33.3); Mean Corpuscular Volume 92.3 fL (83.0-100.0); Monocytes # 0.9 K/mcL (0.0-1.3); Monocytes % 10.4 %; Neutrophils # 5.9 K/mcL (1.6-8.9); Platelet Count 100 K/mcL (140-400); Red Cell Distribution Width 15.9 % (11.5-14.5); Segmented Neutrophils % 65.3 %
[2017-07-10 05:21] LABS: BUN/Creatinine Ratio 10 (6-26); Blood Urea Nitrogen 8 mg/dL (6-20); Carbon Dioxide 23 mEq/L (23-29); Chloride 117 mEq/L (98-107); Glucose 108 mg/dL (70-105); Osmolality,Calculated 297 (280-300); Potassium 3.2 mEq/L (3.5-5.1); Sodium 144 mEq/L (136-145); eGFR For African Americans > 60 (> 60); eGFR For Non-African Americans > 60 (> 60)
[2017-07-10] MEDS: Piperacillin/Tazobactam 3.375 GM/200 ML BAG IVPB SCH ×3 (05:52→20:53)
[2017-07-10] MEDS ORDERED: *HR* Enoxaparin 40 MG/0.4 ML SYRINGE SQ SCH (06:00)
[2017-07-10] MEDS ORDERED: Potassium Chloride 40 MEQ, Lidocaine 1% 2 ML in D5% in Water 500 ML IVPB ONE (07:54)
[2017-07-10 08:27] LABS: C-Reactive Protein 5 mg/L (Less than 10)
[2017-07-10] MEDS: (Mirabegron [Myrbetriq] 50 MG) PO SCH (08:31)
[2017-07-10] MEDS: Gabapentin 300 MG CAPSULE PO SCH ×3 (08:31→20:52)
[2017-07-10] MEDS ORDERED: *HR* OxyCODONE/APAP 5/325 TABLET PO PRN (08:41)
[2017-07-10] MEDS: Ondansetron 4 MG/2 ML VIAL IVP PRN (08:47)
--- NOTE | 2017-07-10 09:34 | Internal Med Progress Note ---
Date of Encounter: 07/10/17 Time of Encounter: 08:15 - Assessment and plan (1) Colitis Current Visit: Yes Status: Acute Assessment and plan: Unsure if this is infectious versus inflammatory. She was negative for C. difficile. We will follow up on the rest of the stool studies. Check ESR and CRP. Given the bloody bowel movement she would likely need a consult to GI. I will place a consult tomorrow morning. We will monitor her hemoglobin today. We will continue with the IV antibiotics with Zosyn for now. We will continue with IV hydration. Lactic acid came back normal. (2) Hypokalemia Current Visit: Yes Status: Acute Assessment and plan: Better than yesterday but still low. We will give her 40 of oral potassium as well as 40 IV. Check labs in the morning.. This is expected given the nausea and vomiting and the diarrhea. (3) Anemia Current Visit: No Status: Chronic Assessment and plan: This is acute blood loss anemia. We will have GI see the patient tomorrow. We will do every 6 hours H&H. We will add IV PPI. Hemoglobin did drop to 7.6 from an admission of 9.2. She was 11.1 earlier this month. She was 11.7 on May 17. Qualifiers: Anemia type: folate deficiency Folate deficiency anemia type: unspecified folate deficiency Qualified Code(s): D52.9 - Folate deficiency anemia, unspecified (4) Schizoaffective disorder, bipolar type Current Visit: No Status: Acute Assessment and plan: I have restarted her antipsychotics now that we have a list. (5) FAISAL (acute kidney injury) Current Visit: Yes Status: Acute Assessment and plan: Continue with IV fluids. This is improving. Avoid nephrotoxins. (6) DVT prophylaxis Current Visit: Yes Status: Acute Assessment and plan: Stop Lovenox and add SCDs (7) Physical deconditioning Current Visit: No Status: Chronic Assessment and plan: The patient seems very deconditioned for her stated age. We will get physical therapy to see the patient. - Subjective Interval history: Patient was seen and examined. She continues to have loose stools. According to her nurse today are bloody looking. Her hemoglobin did drop compared to admission. Nausea is better. CT was with evidence of colitis. She denies any fever. Her blood pressures on the lower side. - Constitutional Vitals: Temp Pulse Resp BP Pulse Ox 98.3 F 79 16 103/62 96 07/10/17 06:51 07/10/17 06:51 07/10/17 06:51 07/10/17 06:51 07/10/17 06:51 General appearance: Present: A&O X 3, no acute distress, answers questions appropriately Exam: GEN: NAD CVS: RRR. S1, S2, No m/r/g RESP: CTAB ABD: Soft, NT, ND, +BS EXT: No edema. 2+ DP. No rashes NEURO: Nonfocal Internal Medicine: Result - Labs CBC & Chem 7: 07/10/17 04:46 07/10/17 04:46 Labs: Short CBC 07/10/17 Range/Units 04:46 WBC 9.0 (4.3-11.1) K/mcL Hgb 7.6 L (11.5-15.4) g/dL Hct 24.0 L (35.3-44.9) % Plt Count 100 L (140-400) K/mcL Neutrophils # 5.9 (1.6-8.9) K/mcL BMP 07/10/17 04:46 Sodium 144 Potassium 3.2 L Chloride 117 H Carbon Dioxide 23 BUN 8 Creatinine 0.82 Glucose 108 H Calcium 8.0 L Consult Discharge Plan - Plan Referrals: Pierre Duran MD [Primary Care Provider] -
[2017-07-10 09:54] LABS: Hematocrit 24.2 % (35.3-44.9); Hemoglobin 7.7 g/dL (11.5-15.4)
[2017-07-10] MEDS: Budesonide/Formoterol 160/4.5 MDI IH SCH ×2 (10:46→22:45)
[2017-07-10 15:39] LABS: Hematocrit 26.1 % (35.3-44.9); Hemoglobin 8.2 g/dL (11.5-15.4)
[2017-07-10] MEDS: Pantoprazole 40 MG VIAL IVP SCH (16:48)
[2017-07-11] MEDS: 0.9 % Sodium Chloride 1,000 ML IVC SCH ×2 (03:41→14:14)
[2017-07-11] MEDS: Piperacillin/Tazobactam 3.375 GM/200 ML BAG IVPB SCH ×3 (05:35→21:13)
[2017-07-11] MEDS: Pantoprazole 40 MG VIAL IVP SCH ×2 (05:36→17:58)
[2017-07-11 06:48] LABS: Basophils # 0.1 K/mcL (0.0-0.2); Basophils % 0.5 %; Eosinophils # 0.2 K/mcL (0.0-0.6); Hematocrit 24.5 % (35.3-44.9); Hemoglobin 7.5 g/dL (11.5-15.4); Immature Granulocytes % 3.4 % (0-4); Lymphocytes # 2.2 K/mcL (0.6-4.6); Lymphocytes % 23.2 %; Mean Corpuscular HGB Conc 30.6 g/dL (31.6-35.5); Mean Corpuscular Volume 94.6 fL (83.0-100.0); Mean Platelet Volume 12.7 fL (9.4-12.4); Monocytes # 0.9 K/mcL (0.0-1.3); Monocytes % 9.1 %; Neutrophils # 5.8 K/mcL (1.6-8.9); Platelet Count 107 K/mcL (140-400); Red Blood Count 2.59 M/mcL (3.82-4.97); Red Cell Distribution Width 16.5 % (11.5-14.5); Segmented Neutrophils % 61.8 %
[2017-07-11 07:10] LABS: BUN/Creatinine Ratio 8 (6-26); Blood Urea Nitrogen 5 mg/dL (6-20); Carbon Dioxide 19 mEq/L (23-29); Chloride 120 mEq/L (98-107); Glucose 76 mg/dL (70-105); Osmolality,Calculated 294 (280-300); Potassium 3.4 mEq/L (3.5-5.1); Sodium 144 mEq/L (136-145); eGFR For African Americans > 60 (> 60); eGFR For Non-African Americans > 60 (> 60)
[2017-07-11] MEDS: Budesonide/Formoterol 160/4.5 MDI IH SCH ×2 (07:38→20:14)
[2017-07-11] MEDS: (Mirabegron [Myrbetriq] 50 MG) PO SCH (09:19)
[2017-07-11] MEDS: Gabapentin 300 MG CAPSULE PO SCH ×3 (09:20→21:13)
--- NOTE | 2017-07-11 11:33 | Internal Med Progress Note ---
Date of Encounter: 07/11/17 Time of Encounter: 09:00 - Assessment and plan (1) Colitis Current Visit: Yes Status: Acute Assessment and plan: Unsure if this is infectious versus inflammatory. She was negative for C. difficile. ESR mildly elevated. CRP is normal. We will consult GI. Continue with serial H&H. Type and screen. We will continue with the IV antibiotics with Zosyn for now. We will continue with IV hydration. Continue with IV PPI. Lactic acid came back normal. (2) Hypokalemia Current Visit: Yes Status: Acute Assessment and plan: We will give 60 of K-Dur today. (3) Anemia Current Visit: No Status: Chronic Assessment and plan: This is acute blood loss anemia. On salt GI. We will do every 6 hours H&H. We will add IV PPI. Hemoglobin continues to drop. She was 11.1 earlier this month. She was 11.7 on May 17. Qualifiers: Anemia type: folate deficiency Folate deficiency anemia type: unspecified folate deficiency Qualified Code(s): D52.9 - Folate deficiency anemia, unspecified (4) Schizoaffective disorder, bipolar type Current Visit: No Status: Acute Assessment and plan: I have restarted her antipsychotics now that we have a list. (5) FAISAL (acute kidney injury) Current Visit: Yes Status: Acute Assessment and plan: Continue with IV fluids. This is improving. Avoid nephrotoxins. (6) DVT prophylaxis Current Visit: Yes Status: Acute Assessment and plan: SCDs (7) Physical deconditioning Current Visit: No Status: Chronic - Subjective Interval history: Patient was seen and examined. The frequency of her loose stools and nausea have decreased significantly. She stills has bloody bowel movements. The patient tells me they are dark colored. Her hemoglobin continues to hover around 7.0. CT was with evidence of colitis. She denies any fever. - Constitutional Vitals: Temp Pulse Resp BP Pulse Ox 98.7 F 85 16 135/77 97 07/11/17 10:51 07/11/17 10:51 07/11/17 10:51 07/11/17 10:51 07/11/17 10:51 General appearance: Present: A&O X 3, no acute distress, answers questions appropriately Exam: GEN: NAD CVS: RRR. S1, S2, No m/r/g RESP: CTAB ABD: Soft, NT, ND, +BS EXT: No edema. 2+ DP. No rashes NEURO: Nonfocal Internal Medicine: Result - Labs CBC & Chem 7: 07/11/17 05:44 07/11/17 05:44 Labs: Short CBC 07/10/17 07/10/17 07/11/17 Range/Units 15:33 22:29 05:44 WBC 9.4 (4.3-11.1) K/mcL Hgb 8.2 L 7.0 L 7.5 L (11.5-15.4) g/dL Hct 26.1 L 22.0 L 24.5 L (35.3-44.9) % Plt Count 107 L (140-400) K/mcL Neutrophils # 5.8 (1.6-8.9) K/mcL BMP 07/11/17 05:44 Sodium 144 Potassium 3.4 L Chloride 120 H Carbon Dioxide 19 L BUN 5 L Creatinine 0.66 Glucose 76 Calcium 8.0 L Consult Discharge Plan - Plan Referrals: Pierre uDran MD [Primary Care Provider] -
--- NOTE | 2017-07-11 12:25 | Gastroenterology Consult Note ---
<Darrick Cole - Last Filed: 07/11/17 12:23> Date of Encounter: 07/11/17 Time of Encounter: 11:20 - Assessment and plan (1) Anemia Current Visit: No Status: Chronic Assessment and plan: Hgb 9..2 on admission and 7.5 today. Hgb WNL on . Plan for EGD and colonoscopy tomorrow. Clear liquid diet today, no red or purple. NPO at midnight. If unable tolerate NuLytely please use MiraLAX prep. If not clear by 6 AM, give 2 tap water enemas. Qualifiers: Anemia type: folate deficiency Folate deficiency anemia type: unspecified folate deficiency Qualified Code(s): D52.9 - Folate deficiency anemia, unspecified (2) Colitis Current Visit: Yes Status: Acute Assessment and plan: Likely secondary to ischemic colitis. BP 87/48 on arrival to ED. CT A/P shows wall thickening of the descending and sigmoid and possibly right colon with adjacent pericolic fat stranding consistent with colitis infectious vs inflammatory. Plan for colonoscopy tomorrow. - Time Spent With Patient Total time spent is greater than 50% in coordination of care (as documented) at patient's floor/unit and/or counseling patient: GI History of Present Illness - Data of Consult Patient: known to practice within the last 3 years Consult date: 07/11/17 Requesting Physician: Jose G Hickman - Consult Narrative Reason for consult: Anemia History of present illness: Ms. Mendoza is a 36 year old female with PMHx of arthritis, asthma, COPD, GERD, HTN , migraine, seizures, syncope, anxiety, bipolar, depression, schizophrenia, who presented to the ED for weakness, diarrhea, nausea, and vomiting. She denies fever, chills, melena, or hematochezia. Cdiff was negative. On arrival, her BP was low at 87/48. On admission Hgb 9.2 and this AM Hgb 7.5. Her Hgb was WNL on 05/17/[address] A/P shows wall thickening of the descending and sigmoid and possibly right colon with adjacent pericolic fat stranding consistent with colitis infectious vs inflammatory. Procedures: Colonoscopy 04/02/2015 Dr. Rich: Poor prep, stool in the entire colon , poor visualization. NSAIDs: None Anticoagulation: None Past Med Surg Social Fam HX - Past Medical History Medical history: arthritis, asthma, COPD, GERD, hypertension, migraine, osteoporosis, seizures, thyroid disease, syncope, other Psychiatric history: anxiety, bipolar, depression, prior suicide attempt, schizophrenia, previous psychiatric hospitalization, other - Past Surgical History Surgical History: orthopedic, other, sinus surgery, other - Social History Smoking Status: Former smoker Smokeless Tobacco Status: No Alcohol use: none Drug use: none - Family History Mother Daughter Family Member Ethnicity: Non- Mother Family Member Ethnicity: Non- Living Status: Still Living Hx Family Respiratory Disorders: Yes Hx Family Cancer: Yes - Gastrointestinal Gastrointestinal: Present: as per HPI - Constitutional Constitutional: as per HPI - EENT Eyes: as per HPI Ears: Present: as per HPI Nose, mouth and throat: Present: as per HPI - Cardiovascular Cardiovascular ROS: Present: as per HPI - Respiratory Respiratory IM: Present: as per HPI - Genitourinary Genitourinary: Absent: change in color, Urinary frequency - Neurological ROS Neurological GI: Present: as per HPI - Hematologic/Lymphatic Hematologic/Lymphatic pediatric: Present: as per HPI - Musculoskeletal Musculoskeletal ROS GI: Present: as per HPI - Integumentary Integumentary GI: Present: as per HPI - Psychiatric ROS Psychiatric GI: Present: as per HPI - Endocrine Endocrine IM: Present: as per HPI - Constitutional Vitals: Temp Pulse Resp BP Pulse Ox 98.7 F 85 16 135/77 97 07/11/17 10:51 07/11/17 10:51 07/11/17 10:51 07/11/17 10:51 07/11/17 10:51 General appearance: Present: cooperative, A&O X 3, no acute distress, answers questions appropriately - Head Head exam: Present: atraumatic, normocephalic - Eye Eye exam: Present: normal appearance, sclera anicteric - ENT ENT exam: Present: mucous membranes moist - Neck Neck exam general surgery: Present: normal inspection, trachea midline - Respiratory Respiratory exam: Present: CTAB. Absent: rales, rhonchi - Cardiovascular Cardiovascular exam: Present: RRR, +S1, +S2 - GI/Abdominal GI/Abdominal exam: Present: soft, no peritoneal signs. Absent: distended, firm , guarding, tenderness - Rectal Rectal exam: Present: deferred - Extremities Exam Extremities exam: Present: warm - Neurological Exam Neurological exam: Present: no focal deficits - Psychiatric Psychiatric exam: Present: normal affect, normal mood - Skin Skin exam: Present: dry, intact, normal color, warm Results - Labs CBC & Chem 7: 07/11/17 05:44 07/11/17 05:44 Labs: Last Result ESR 29 mm/hr (0-15) H 07/10/17 04:46 Calcium 8.0 mg/dL (8.6-10.3) L 07/11/17 05:44 Troponin I < 0.03 ng/mL (< 0.04) 07/08/17 17:08 C-Reactive Protein 5 mg/L (Less than 10) 07/10/17 04:46 Entire Visit Hgb 7.5 g/dL (11.5-15.4) L 07/11/17 05:44 Hct 24.5 % (35.3-44.9) L 07/11/17 05:44 Total Bilirubin 0.4 mg/dL (0.3-1.0) 07/09/17 03:45 AST 33 Units/L (13-39) 07/09/17 03:45 ALT 58 Units/L (7-52) H 07/09/17 03:45 Lipase 89 Units/L (11-82) H 07/08/17 17:08 Consult Discharge Plan - Plan Referrals: Pierre Duran MD [Primary Care Provider] - <Gordo Rich - Last Filed: 07/11/17 17:53> Date of Encounter: 07/11/17 Time of Encounter: 14:15 - Time Spent With Patient Total time spent is greater than 50% in coordination of care (as documented) at patient's floor/unit and/or counseling patient: GI History of Present Illness - Data of Consult Requesting Physician: Jose G Hickman - Consult Narrative History of present illness: Ms. Mendoza is a 36 year old female - Constitutional Vitals: Temp Pulse Resp BP Pulse Ox 98.9 F 91 16 108/55 96 07/11/17 15:44 07/11/17 15:44 07/11/17 15:44 07/11/17 15:44 07/11/17 15:44 Results - Labs CBC & Chem 7: 07/11/17 05:44 07/11/17 05:44 Labs: Last Result ESR 29 mm/hr (0-15) H 07/10/17 04:46 Calcium 8.0 mg/dL (8.6-10.3) L 07/11/17 05:44 Troponin I < 0.03 ng/mL (< 0.04) 07/08/17 17:08 C-Reactive Protein 5 mg/L (Less than 10) 07/10/17 04:46 Entire Visit Hgb 7.5 g/dL (11.5-15.4) L 07/11/17 05:44 Hct 24.5 % (35.3-44.9) L 07/11/17 05:44 Total Bilirubin 0.4 mg/dL (0.3-1.0) 07/09/17 03:45 AST 33 Units/L (13-39) 07/09/17 03:45 ALT 58 Units/L (7-52) H 07/09/17 03:45 Lipase 89 Units/L (11-82) H 07/08/17 17:08 - Attending Attestation I examined this patient and my medical decision-making was reviewed with the Resident Physician. I agree with the documented findings, disposition and treatment plan as described except to the extent set forth below. 36-year-old female with anemia and also with complaint of unable to keep anything down along with the nausea vomiting and rectal bleeding Rec: Iron panel. EGD colonoscopy
[2017-07-11 13:06] LABS: Adenovirus F 40/41 PCR Not detected (Not detect); Astrovirus PCR Not detected (Not detect); C.difficile Toxin A/B by PCR Not detected (Not detect); Campylobacter by PCR Not detected (Not detect); Cryptosporidium by PCR Not detected (Not detect); Cyclospora cayetanensis PCR Not detected (Not detect); E. coli O157 by PCR Not detected (Not detect); Entamoeba histolytica PCR Not detected (Not detect); Enteroaggregative E.coli(EAEC) Not detected (Not detect); Enteropathogenic E.coli(EPEC) Not detected (Not detect); Enterotoxigenic E.coli (ETEC) Not detected (Not detect); Giardia lamblia PCR Not detected (Not detect); Norovirus GI/GII PCR Not detected (Not detect); Plesiomonas shigelloides PCR Not detected (Not detect); Rotavirus A PCR Not detected (Not detect); Salmonella PCR Not detected (Not detect); Sapovirus PCR Not detected (Not detect); Shig/EnteroinvasiveE coli EIEC Not detected (Not detect); Shigalike tox-prod E coli STEC Not detected (Not detect); Vibrio PCR Not detected (Not detect); Vibrio cholerae PCR Not detected (Not detect); Yersinia enterocolitica PCR Not detected (Not detect)
[2017-07-11] MEDS: clonazePAM 0.5 MG TABLET PO PRN (14:13)
[2017-07-11] MEDS: Topiramate 100 MG TABLET PO SCH ×2 (14:13→21:12)
--- NOTE | 2017-07-11 16:08 | Electrocardiograph Report ---
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
[2017-07-11] MEDS ORDERED: SODIUM CHLORIDE/NAHCO3/KCL/PEG 4,000 ML SOLN.RECON PO ONE (17:00)
[2017-07-11] MEDS: Zinc Sulfate 220 MG CAPSULE PO SCH (17:58)
[2017-07-11] MEDS ORDERED: traZODone 50 MG TABLET PO PRN (21:00)
[2017-07-12 03:47] LABS: Basophils % 0.4 %; Eosinophils # 0.2 K/mcL (0.0-0.6); Eosinophils % 1.8 %; Hematocrit 22.2 % (35.3-44.9); Immature Granulocytes % 3.3 % (0-4); Lymphocytes # 2.2 K/mcL (0.6-4.6); Lymphocytes % 24.4 %; Mean Corpuscular HGB Conc 31.5 g/dL (31.6-35.5); Mean Corpuscular Hemoglobin 29.4 pg (28.0-33.3); Mean Corpuscular Volume 93.3 fL (83.0-100.0); Mean Platelet Volume 11.9 fL (9.4-12.4); Monocytes % 11.1 %; Neutrophils # 5.4 K/mcL (1.6-8.9); Red Blood Count 2.38 M/mcL (3.82-4.97)
[2017-07-12 04:03] LABS: Platelet Count 99 K/mcL (140-400)
[2017-07-12 04:20] LABS: Alanine Aminotransferase 74 Units/L (7-52); Albumin 2.5 g/dL (3.5-5.7); Albumin/Globulin Ratio 1.3 (1.1-2.2); Alkaline Phosphatase 77 Units/L (34-104); Aspartate Amino Transferase 35 Units/L (13-39); BUN/Creatinine Ratio 7 (6-26); Bilirubin,Total 0.4 mg/dL (0.3-1.0); Blood Urea Nitrogen 4 mg/dL (6-20); Calcium 8.1 mg/dL (8.6-10.3); Carbon Dioxide 16 mEq/L (23-29); Chloride 123 mEq/L (98-107); Globulin 1.9 g/dL (2.4-3.5); Glucose 87 mg/dL (70-105); Osmolality,Calculated 298 (280-300); Potassium 3.2 mEq/L (3.5-5.1); Sodium 146 mEq/L (136-145); Total Protein 4.4 g/dL (6.4-8.9); eGFR For African Americans > 60 (> 60); eGFR For Non-African Americans > 60 (> 60)
[2017-07-12] MEDS: Pantoprazole 40 MG VIAL IVP SCH ×2 (06:53→17:25)
[2017-07-12] MEDS: Piperacillin/Tazobactam 3.375 GM/200 ML BAG IVPB SCH ×2 (06:53→15:30)
[2017-07-12] MEDS: (Mirabegron [Myrbetriq] 50 MG) PO SCH (08:54)
[2017-07-12] MEDS: Gabapentin 300 MG CAPSULE PO SCH ×3 (08:54→21:06)
[2017-07-12] MEDS: Topiramate 100 MG TABLET PO SCH ×3 (08:54→21:07)
[2017-07-12] MEDS: Zinc Sulfate 220 MG CAPSULE PO SCH (08:55)
[2017-07-12] MEDS ORDERED: Potassium Chloride 40 MEQ, Lidocaine 1% 2 ML in D5% in Water 500 ML IVPB ONE (09:23)
[2017-07-12] MEDS: Budesonide/Formoterol 160/4.5 MDI IH SCH ×2 (10:43→20:08)
[2017-07-12] MEDS ORDERED: 0.9 % Sodium Chloride 250 ML ONE (11:41)
--- NOTE | 2017-07-12 12:16 | Internal Med Progress Note ---
Date of Encounter: 07/12/17 Time of Encounter: 09:00 - Assessment and plan (1) Colitis Current Visit: Yes Status: Acute Assessment and plan: Unsure if this is infectious versus inflammatory. She was negative for C. difficile. ESR mildly elevated. CRP is normal. GI is following a planning on doing upper and lower scopes. We will continue with the IV antibiotics with Zosyn for now. We will continue with IV hydration. On IV PPI. Lactic acid came back normal. (2) Hypokalemia Current Visit: Yes Status: Acute Assessment and plan: We will give 40 mEq of IV potassium. (3) Anemia Current Visit: No Status: Chronic Assessment and plan: This is acute blood loss anemia. GI is consulted. Hemoglobin is at 7 today. We will give 1 unit PRBCs. Continue with IV PPI.. We will do every 6 hours H& H. Hemoglobin was 11.1 earlier this month. She was 11.7 on May 17. Qualifiers: Anemia type: folate deficiency Folate deficiency anemia type: unspecified folate deficiency Qualified Code(s): D52.9 - Folate deficiency anemia, unspecified (4) Schizoaffective disorder, bipolar type Current Visit: No Status: Acute Assessment and plan: I have restarted her antipsychotics now that we have a list. (5) FAISAL (acute kidney injury) Current Visit: Yes Status: Acute Assessment and plan: Continue with IV fluids. Since resolved. Avoid nephrotoxins. (6) DVT prophylaxis Current Visit: Yes Status: Acute Assessment and plan: SCDs (7) Physical deconditioning Current Visit: No Status: Chronic Assessment and plan: The patient seems very deconditioned for her stated age. We will get physical therapy to see the patient. - Subjective Interval history: Patient was seen and examined. Apparently she did not do well with the bowel prep. I am not exactly sure how much she finished but per nursing she did not take it all in. She still having loose stools. She is not nauseated. Still does have some bloody component to them. Her hemoglobin continues is at 7.0. CT was with evidence of colitis. She denies any fever. - Constitutional Vitals: Temp Pulse Resp BP Pulse Ox 98.8 F 64 18 124/64 96 07/12/17 11:57 07/12/17 11:57 07/12/17 11:57 07/12/17 11:57 07/12/17 11:57 General appearance: Present: A&O X 3, no acute distress, answers questions appropriately Exam: GEN: NAD CVS: RRR. S1, S2, No m/r/g RESP: CTAB ABD: Soft, NT, ND, +BS EXT: No edema. 2+ DP. No rashes NEURO: Nonfocal Internal Medicine: Result - Labs CBC & Chem 7: 07/12/17 03:30 07/12/17 03:30 Labs: Short CBC 07/12/17 Range/Units 03:30 WBC 9.1 (4.3-11.1) K/mcL Hgb 7.0 L (11.5-15.4) g/dL Hct 22.2 L (35.3-44.9) % Plt Count 99 L (140-400) K/mcL Neutrophils # 5.4 (1.6-8.9) K/mcL BMP 07/12/17 03:30 Sodium 146 H Potassium 3.2 L Chloride 123 H Carbon Dioxide 16 L BUN 4 L Creatinine 0.60 Glucose 87 Calcium 8.1 L Liver Function 07/12/17 Range/Units 03:30 Total Bilirubin 0.4 (0.3-1.0) mg/dL AST 35 (13-39) Units/L ALT 74 H (7-52) Units/L Alkaline Phosphatase 77 (34-104) Units/L Albumin 2.5 L (3.5-5.7) g/dL Consult Discharge Plan - Plan Referrals: Pierre Duran MD [Primary Care Provider] -
[2017-07-12] MEDS: 0.9 % Sodium Chloride 1,000 ML IVC SCH (15:31)
[2017-07-12] MEDS: *HR* OxyCODONE/APAP 5/325 TABLET PO PRN (17:25)
[2017-07-13] MEDS: 0.9 % Sodium Chloride 1,000 ML IVC SCH ×3 (03:27→11:40)
[2017-07-13] MEDS: Piperacillin/Tazobactam 3.375 GM/200 ML BAG IVPB SCH ×4 (03:29→23:39)
[2017-07-13 04:50] LABS: Basophils % 0.4 %; Eosinophils # 0.2 K/mcL (0.0-0.6); Eosinophils % 1.5 %; Hematocrit 24.8 % (35.3-44.9); Hemoglobin 7.9 g/dL (11.5-15.4); Immature Granulocytes % 2.6 % (0-4); Lymphocytes # 1.1 K/mcL (0.6-4.6); Lymphocytes % 9.8 %; Mean Corpuscular HGB Conc 31.9 g/dL (31.6-35.5); Mean Corpuscular Hemoglobin 29.6 pg (28.0-33.3); Mean Corpuscular Volume 92.9 fL (83.0-100.0); Mean Platelet Volume 12.3 fL (9.4-12.4); Monocytes # 1.1 K/mcL (0.0-1.3); Monocytes % 10.3 %; Neutrophils # 8.3 K/mcL (1.6-8.9); Nucleated Red Blood Cells 0.4 /100 WBC (0); Red Blood Count 2.67 M/mcL (3.82-4.97); Red Cell Distribution Width 17.4 % (11.5-14.5); Segmented Neutrophils % 75.4 %
[2017-07-13] MEDS: Pantoprazole 40 MG VIAL IVP SCH ×2 (04:50→17:45)
[2017-07-13 04:52] LABS: Platelet Count 96 K/mcL (140-400)
[2017-07-13 05:02] LABS: BUN/Creatinine Ratio 5 (6-26); Blood Urea Nitrogen 3 mg/dL (6-20); Calcium 8.2 mg/dL (8.6-10.3); Carbon Dioxide 17 mEq/L (23-29); Chloride 124 mEq/L (98-107); Glucose 92 mg/dL (70-105); Osmolality,Calculated 300 (280-300); Potassium 3.1 mEq/L (3.5-5.1); Sodium 147 mEq/L (136-145); eGFR For African Americans > 60 (> 60); eGFR For Non-African Americans > 60 (> 60)
[2017-07-13] MEDS: Zinc Sulfate 220 MG CAPSULE PO SCH (08:32)
[2017-07-13] MEDS: Gabapentin 300 MG CAPSULE PO SCH ×3 (08:32→23:39)
[2017-07-13] MEDS: Topiramate 100 MG TABLET PO SCH ×3 (08:33→23:39)
[2017-07-13] MEDS: Budesonide/Formoterol 160/4.5 MDI IH SCH ×2 (10:06→20:19)
[2017-07-13] MEDS ORDERED: Potassium Chloride 40 MEQ, Lidocaine 1% 2 ML in D5% in Water 500 ML IVPB ONE (11:38)
--- NOTE | 2017-07-13 11:46 | Internal Med Progress Note ---
Date of Encounter: 07/13/17 Time of Encounter: 11:45 - Assessment and plan (1) Colitis Current Visit: Yes Status: Acute Assessment and plan: Unsure if this is infectious versus inflammatory. She was negative for C. difficile. ESR mildly elevated. CRP is normal. GI is following a planning on doing upper and lower scopes this morning. We will continue with the IV antibiotics with Zosyn for now. We will continue with IV hydration. On IV PPI. Lactic acid came back normal. (2) Hypokalemia Current Visit: Yes Status: Acute Assessment and plan: We will add potassium to her IV fluids. We will give IV potassium 40 mEq. We will give 40 mEq of potassium after the procedures.. (3) Anemia Current Visit: No Status: Chronic Assessment and plan: This is acute blood loss anemia. GI is consulted. Hemoglobin is at 7.9 today. She received 1 unit PRBCs yesterday. No need to transfuse today. Continue with IV PPI.. Monitor H&H. Hemoglobin was 11.1 earlier this month. She was 11.7 on May 17. Qualifiers: Anemia type: folate deficiency Folate deficiency anemia type: unspecified folate deficiency Qualified Code(s): D52.9 - Folate deficiency anemia, unspecified (4) Schizoaffective disorder, bipolar type Current Visit: No Status: Acute Assessment and plan: I have restarted her antipsychotics now that we have a list. (5) FAISAL (acute kidney injury) Current Visit: Yes Status: Acute Assessment and plan: Continue with IV fluids. Since resolved. Avoid nephrotoxins. (6) DVT prophylaxis Current Visit: Yes Status: Acute Assessment and plan: SCDs (7) Physical deconditioning Current Visit: No Status: Chronic Assessment and plan: The patient seems very deconditioned for her stated age. We will get physical therapy to see the patient. - Subjective Interval history: Patient was seen and examined. No acute events. The patient went through a bowel prep last night and had multiple bowel movements. No abdominal pain. She is not nauseated. she is feeling cold. She is status post 1 unit of PRBCs yesterday. CT was with evidence of colitis. She denies any fever. - Constitutional Vitals: Temp Pulse Resp BP Pulse Ox 98.9 F 93 16 132/74 95 07/13/17 07:27 07/13/17 07:27 07/13/17 10:15 07/13/17 07:27 07/13/17 10:15 General appearance: Present: A&O X 3, no acute distress, answers questions appropriately Exam: GEN: NAD CVS: RRR. S1, S2, No m/r/g RESP: CTAB ABD: Soft, NT, ND, +BS EXT: No edema. 2+ DP. No rashes NEURO: Nonfocal Internal Medicine: Result - Labs CBC & Chem 7: 07/13/17 04:29 07/13/17 04:29 Labs: Short CBC 07/13/17 Range/Units 04:29 WBC 11.0 (4.3-11.1) K/mcL Hgb 7.9 L (11.5-15.4) g/dL Hct 24.8 L (35.3-44.9) % Plt Count 96 L (140-400) K/mcL Neutrophils # 8.3 (1.6-8.9) K/mcL BMP 07/13/17 04:29 Sodium 147 H Potassium 3.1 L Chloride 124 H Carbon Dioxide 17 L BUN 3 L Creatinine 0.60 Glucose 92 Calcium 8.2 L Consult Discharge Plan - Plan Referrals: Pierre Duran MD [Primary Care Provider] -
--- NOTE | 2017-07-13 12:22 | Anesthesia Evaluation PreOp ---
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), Syncope, Other (Migraines, Bipolar, depression, Suicide attempt, schizophrenia,) Other Medical History: Thyroid, GERD Anesthesia History: No Prior Anesthetic Complications, Past Anesthesia (leep, ex lap) : No Test: Negative (07/08/2017) Alcohol Use: none Drug use: none Medications and Allergies Albuterol Sulfate [Albuterol Inhaler] 2 puff IH Q4H PRN 07/28/15 [History] Omeprazole [PriLOSEC] 20 mg PO DAILY 07/28/15 [History] Levothyroxine [Synthroid] 125 mcg PO QAM 11/30/15 [History] Vitamin E 1,000 unit PO DAILY 11/30/15 [History] hydroCHLOROthiazide [Hydrochlorothiazide] 25 mg PO DAILY 11/30/15 [History] Budesonide/Formoterol 160/4.5 [Symbicort 160/4.5] 2 puff IH BIDR 10/03/16 [ History] Escitalopram [Lexapro] 20 mg PO DAILY 10/03/16 [History] Gabapentin [Neurontin] 1,200 mg PO TID 10/03/16 [History] Verapamil ER (24 HR) [Calan SR] 120 mg PO DAILY 10/03/16 [History] Quetiapine Fumarate [Seroquel] 400 mg PO HS #28 tablet 10/07/16 [Rx] Amantadine [Symmetrel] 100 mg PO QID 07/09/17 [History] Mirabegron [Myrbetriq] 50 mg PO DAILY 07/09/17 [History] Pentosan Polysulfate Sodium [Elmiron] 100 mg PO TID 07/09/17 [History] Topiramate [Topamax] 200 mg PO TID 07/09/17 [History] clonazePAM [Klonopin] 2 mg PO BID PRN 07/09/17 [History] traZODone [TraZODone] 300 mg PO HS PRN 07/09/17 [History] 3 Allergy/AdvReac Type Severity Reaction Status Date / Time aripiprazole [From Abilify] Allergy Difficulty Verified 06/28/17 16:26 Breathing aspirin Allergy Difficulty Verified 06/28/17 16:26 Breathing ibuprofen Allergy Difficulty Verified 06/28/17 16:26 Breathing latex Allergy Difficulty Verified 06/28/17 16:26 Breathing metronidazole [From Flagyl] Allergy Difficulty Verified 06/28/17 16:26 Breathing naproxen [From Aleve] Allergy Difficulty Verified 06/28/17 16:26 Breathing Sulfa (Sulfonamide Allergy Vomiting Verified 06/28/17 16:26 Antibiotics) - Meds/Allergy Pre-op Review Medications Reviewed: Yes Allergies Reviewed: Yes Beta Blockers on Current Med List: No Anesthesia Results - Labs 07/13/17 04:29 07/13/17 04:29 Laboratory Tests 07/08/17 19:31 Urine Test Negative - Imaging EKG: report reviewed Anesthesia Exam O2 Sat Weight 71.35 kg O2 Sat by Pulse Oximetry 95 O2 Sat by Pulse Oximetry 100 O2 Sat by Pulse Oximetry 99 O2 Sat by Pulse Oximetry 97 O2 Sat by Pulse Oximetry 93 O2 Sat by Pulse Oximetry 93 O2 Sat by Pulse Oximetry 97 Vital Signs Temp Pulse Resp BP Pulse Ox 98.0 F 69 18 87/48 100 07/08/17 16:45 07/08/17 16:45 07/08/17 16:45 07/08/17 16:45 07/08/17 16:45 Height: 5'5'' Weight: 157# NPO (# of Hours): > 8 hrs Pain Scale: 0 Pain Scale Used: Numeric (1 - 10) - HEENT Pupil (Motor): Pupils equal, EOMI Mallampati: II Teeth: Edentulous Oral Opening: Greater than 3 - [employer] LOC: Oriented [employer] Motor: Normal RUE, Normal LUE, Normal RLE, Normal LLE, Normal Face [employer] Sensory: Normal: RUE, LUE, RLE, LLE, Face - Cardiac Rhythm: Regular Murmur: None JVD: No Carotid Bruit: No - Pulmonary Breath Sounds: bilateral Clear Respiratory Effort: Symmetrical Anesthesia Assess/Plan ASA Score: 3 Modified [place] Scale for Level of Consciousness: Cooperative, oriented, and tranquil Anesthetic Plan: MAC Autologous Blood: Yes Monitoring Plan: Standard Monitors Recovery Plan: PACU
[2017-07-13] MEDS ORDERED: Tetracaine/Benzocaine/Butamben 200MG/SPRAY (100SPY/BOT) MM ONE (13:42)
[2017-07-13] MEDS ORDERED: Simethicone 40 MG/0.6 ML MLS IR ONE (13:42)
[2017-07-13] MEDS ORDERED: Lidocaine -MPF 2% 2 ML VIAL ONE (13:54)
[2017-07-13] MEDS ORDERED: Propofol 500 MG/50 ML INFUS..BTL ONE (13:54)
[2017-07-13] MEDS ORDERED: *HR* Propofol 200 MG/20 ML VIAL IVP ONE (14:24)
--- NOTE | 2017-07-13 14:43 | Anesthesia Evaluation Post Op ---
Date of Encounter: 07/13/17 Time of Encounter: 14:43 - Vital Signs Vital Signs: vss - Lungs Lungs: Clear Ascult./Percussion - Airway Airway: Non-obstructed - Cardiovascular Baseline Rhythm - Mental Status Mental Status: Asleep with brisk response to light stimulation - Pain Pain Scale used: Deshaun (Faces) - Nausea Vomiting Nausea Vomiting: Not Present - Discharge PostOp Status: Transfer Patient to floor
[2017-07-13] MEDS: 0.9 % Sodium Chloride w KCl 20 MEQ/1,000 ML MLS IVC SCH (15:22)
[2017-07-13] MEDS: *HR* OxyCODONE/APAP 5/325 TABLET PO PRN (15:54)
[2017-07-14] MEDS: 0.9 % Sodium Chloride w KCl 20 MEQ/1,000 ML MLS IVC SCH (05:41)
[2017-07-14] MEDS: Piperacillin/Tazobactam 3.375 GM/200 ML BAG IVPB SCH (05:42)
[2017-07-14] MEDS: Pantoprazole 40 MG VIAL IVP SCH ×2 (05:42→17:13)
[2017-07-14 05:59] LABS: Basophils % 0.5 %; Eosinophils # 0.2 K/mcL (0.0-0.6); Eosinophils % 2.4 %; Hematocrit 23.8 % (35.3-44.9); Hemoglobin 7.6 g/dL (11.5-15.4); Lymphocytes # 1.7 K/mcL (0.6-4.6); Mean Corpuscular HGB Conc 31.9 g/dL (31.6-35.5); Mean Corpuscular Hemoglobin 30.2 pg (28.0-33.3); Mean Corpuscular Volume 94.4 fL (83.0-100.0); Monocytes # 0.9 K/mcL (0.0-1.3); Monocytes % 12.2 %; Neutrophils # 4.6 K/mcL (1.6-8.9); Red Blood Count 2.52 M/mcL (3.82-4.97); Red Cell Distribution Width 18.1 % (11.5-14.5); Segmented Neutrophils % 59.9 %
[2017-07-14 06:10] LABS: BUN/Creatinine Ratio 5 (6-26); Blood Urea Nitrogen 3 mg/dL (6-20); Calcium 7.9 mg/dL (8.6-10.3); Carbon Dioxide 16 mEq/L (23-29); Chloride 129 mEq/L (98-107); Glucose 95 mg/dL (70-105); Osmolality,Calculated 306 (280-300); Potassium 3.1 mEq/L (3.5-5.1); Sodium 150 mEq/L (136-145); eGFR For African Americans > 60 (> 60); eGFR For Non-African Americans > 60 (> 60)
[2017-07-14 06:23] LABS: Platelet Count 98 K/mcL (140-400)
[2017-07-14 06:54] LABS: Anisocytosis 1+ (Not Present); Microcytosis Present (Not Present); Platelet Estimate Decreased (Normal)
[2017-07-14] MEDS: Zinc Sulfate 220 MG CAPSULE PO SCH (07:51)
[2017-07-14] MEDS: Topiramate 100 MG TABLET PO SCH ×3 (07:51→22:12)
[2017-07-14] MEDS: Gabapentin 300 MG CAPSULE PO SCH ×3 (07:51→22:12)
[2017-07-14] MEDS: Budesonide/Formoterol 160/4.5 MDI IH SCH ×2 (10:58→21:03)
[2017-07-14] MEDS: 0.45 % Sodium Chloride w/KCl 20 MEQ/1,000 ML MLS IVC SCH ×2 (12:49→22:11)
[2017-07-14] MEDS: *HR* OxyCODONE/APAP 5/325 TABLET PO PRN ×2 (17:13→22:29)
--- NOTE | 2017-07-14 17:40 | Internal Med Progress Note ---
Date of Encounter: 07/14/17 Time of Encounter: 17:40 - Assessment and plan (1) Colitis Current Visit: Yes Status: Acute Assessment and plan: Unsure if this is infectious versus inflammatory. She was negative for C. difficile. ESR mildly elevated. CRP is normal. GI is following a planning on doing upper and lower scopes this morning. We will continue with the IV antibiotics with Zosyn for now. We will continue with IV hydration. On IV PPI. Lactic acid came back normal. Not likely infectious, will DC Zosyn. (2) Dehydration Current Visit: No Status: Resolved (3) Hypokalemia Current Visit: Yes Status: Acute Assessment and plan: We will add potassium to her IV fluids. We will give IV potassium 40 mEq. We will give 40 mEq of potassium after the procedures.. (4) Essential hypertension Current Visit: Yes Status: Acute (5) Anemia Current Visit: No Status: Chronic Assessment and plan: This is acute blood loss anemia. GI is consulted. Hemoglobin is at 7.9 today. She received 1 unit PRBCs yesterday. No need to transfuse today. Continue with IV PPI.. Monitor H&H. Hemoglobin was 11.1 earlier this month. She was 11.7 on May 17. Qualifiers: Anemia type: folate deficiency Folate deficiency anemia type: unspecified folate deficiency Qualified Code(s): D52.9 - Folate deficiency anemia, unspecified (6) Chronic kidney disease (CKD) Current Visit: Yes Status: Acute Qualifiers: Chronic kidney disease stage: unspecified stage Qualified Code(s): N18.9 - Chronic kidney disease, unspecified (7) Schizoaffective disorder, bipolar type Current Visit: No Status: Acute Assessment and plan: I have restarted her antipsychotics now that we have a list. (8) Debility, unspecified Current Visit: No Status: Chronic (9) Movement disorder Current Visit: No Status: Chronic (10) Bipolar depression Current Visit: No Status: Chronic (11) Former heavy cigarette smoker (20-39 per day) Current Visit: No Status: Chronic - Subjective Interval history: No acute events. Patient about to eat lunch, has good appetite. She still has complaints of diarrhea, fairly unchanged since yesterday. - Constitutional Vitals: Temp Pulse Resp BP Pulse Ox 99 F 82 18 115/65 98 07/14/17 15:45 07/14/17 15:45 07/14/17 15:45 07/14/17 15:45 07/14/17 15:45 General appearance: Present: A&O X 3, no acute distress, answers questions appropriately - Respiratory Respiratory exam: Present: CTAB. Absent: accessory muscle use, rales, rhonchi, wheezes - Cardiovascular Cardiovascular exam: Present: RRR, +S1, +S2. Absent: diastolic murmur, gallop, rubs, systolic murmur - GI/Abdominal GI/Abdominal exam: Present: normal bowel sounds, soft, no peritoneal signs. Absent: distended, tenderness Internal Medicine: Result - Labs CBC & Chem 7: 07/14/17 05:30 07/14/17 05:30 Labs: Short CBC 07/14/17 Range/Units 05:30 WBC 7.6 (4.3-11.1) K/mcL Hgb 7.6 L (11.5-15.4) g/dL Hct 23.8 L (35.3-44.9) % Plt Count 98 L (140-400) K/mcL Neutrophils # 4.6 (1.6-8.9) K/mcL BMP 07/14/17 05:30 Sodium 150 H Potassium 3.1 L Chloride 129 H Carbon Dioxide 16 L BUN 3 L Creatinine 0.61 Glucose 95 Calcium 7.9 L Consult Discharge Plan - Plan Referrals: Pierre Duran MD [Primary Care Provider] -
[2017-07-15] MEDS: Pantoprazole 40 MG VIAL IVP SCH ×2 (05:31→18:42)
[2017-07-15 05:44] LABS: Basophils % 0.4 %; Eosinophils # 0.1 K/mcL (0.0-0.6); Eosinophils % 2.7 %; Hematocrit 22.5 % (35.3-44.9); Hemoglobin 7.1 g/dL (11.5-15.4); Immature Granulocytes % 2.1 % (0-4); Immature Platelets 3.9 % (1.1-6.1); Lymphocytes # 1.8 K/mcL (0.6-4.6); Lymphocytes % 37.2 %; Mean Corpuscular HGB Conc 31.6 g/dL (31.6-35.5); Mean Corpuscular Hemoglobin 29.7 pg (28.0-33.3); Mean Corpuscular Volume 94.1 fL (83.0-100.0); Monocytes # 0.6 K/mcL (0.0-1.3); Monocytes % 12.7 %; Neutrophils # 2.1 K/mcL (1.6-8.9); Red Blood Count 2.39 M/mcL (3.82-4.97); Red Cell Distribution Width 18.6 % (11.5-14.5); Segmented Neutrophils % 44.9 %
[2017-07-15 06:05] LABS: BUN/Creatinine Ratio 3 (6-26); Blood Urea Nitrogen 2 mg/dL (6-20); Calcium 7.6 mg/dL (8.6-10.3); Carbon Dioxide 18 mEq/L (23-29); Chloride 124 mEq/L (98-107); Glucose 84 mg/dL (70-105); Osmolality,Calculated 295 (280-300); Potassium 3.1 mEq/L (3.5-5.1); Sodium 145 mEq/L (136-145); eGFR For African Americans > 60 (> 60); eGFR For Non-African Americans > 60 (> 60)
[2017-07-15 06:16] LABS: Platelet Count 95 K/mcL (140-400)
[2017-07-15 06:18] LABS: Platelet Estimate Decreased (Normal); Poikilocytosis 1+ (Not Present)
[2017-07-15] MEDS: 0.45 % Sodium Chloride w/KCl 20 MEQ/1,000 ML MLS IVC SCH ×2 (08:32→18:42)
[2017-07-15] MEDS: Gabapentin 300 MG CAPSULE PO SCH ×3 (09:29→20:43)
[2017-07-15] MEDS: Zinc Sulfate 220 MG CAPSULE PO SCH (09:29)
[2017-07-15] MEDS: Topiramate 100 MG TABLET PO SCH ×3 (09:29→20:43)
[2017-07-15] MEDS ORDERED: Potassium Chloride Elixir 20 MEQ/15 ML UDC PO ONE (09:51)
[2017-07-15] MEDS: Budesonide/Formoterol 160/4.5 MDI IH SCH ×2 (11:11→20:37)
[2017-07-15 11:30] LABS: Hematocrit 24.4 % (35.3-44.9); Hemoglobin 7.7 g/dL (11.5-15.4)
[2017-07-15] MEDS: *HR* OxyCODONE/APAP 5/325 TABLET PO PRN ×2 (14:44→20:43)
[2017-07-15] MEDS: clonazePAM 0.5 MG TABLET PO PRN (14:49)
[2017-07-15] MEDS: Ondansetron 4 MG/2 ML VIAL IVP PRN (14:49)
--- NOTE | 2017-07-15 23:57 | Internal Med Progress Note ---
Date of Encounter: 07/15/17 Time of Encounter: 11:55 - Assessment and plan (1) Colitis Current Visit: Yes Status: Acute Assessment and plan: Unsure if this is infectious versus inflammatory. She was negative for C. difficile. ESR mildly elevated. CRP is normal. GI is following a planning on doing upper and lower scopes this morning. We will continue with the IV antibiotics with Zosyn for now. We will continue with IV hydration. On IV PPI. Lactic acid came back normal. Not likely infectious, Zosyn discontinued 07/14. ADAT - start full liquid for lunch (2) Dehydration Current Visit: No Status: Resolved (3) Hypokalemia Current Visit: Yes Status: Acute Assessment and plan: We will add potassium to her IV fluids. We will give IV potassium 40 mEq. We will give 40 mEq of potassium after the procedures.. (4) Essential hypertension Current Visit: Yes Status: Acute (5) Anemia Current Visit: No Status: Chronic Assessment and plan: This is acute blood loss anemia. GI is consulted. Hemoglobin is at 7.9 today. She received 1 unit PRBCs yesterday. No need to transfuse today. Continue with IV PPI.. Monitor H&H. Hemoglobin was 11.1 earlier this month. She was 11.7 on May 17. Qualifiers: Anemia type: folate deficiency Folate deficiency anemia type: unspecified folate deficiency Qualified Code(s): D52.9 - Folate deficiency anemia, unspecified (6) Chronic kidney disease (CKD) Current Visit: Yes Status: Acute Qualifiers: Chronic kidney disease stage: unspecified stage Qualified Code(s): N18.9 - Chronic kidney disease, unspecified (7) Schizoaffective disorder, bipolar type Current Visit: No Status: Acute Assessment and plan: I have restarted her antipsychotics now that we have a list. (8) Debility, unspecified Current Visit: No Status: Chronic (9) Movement disorder Current Visit: No Status: Chronic (10) Bipolar depression Current Visit: No Status: Chronic (11) Former heavy cigarette smoker (20-39 per day) Current Visit: No Status: Chronic - Subjective Interval history: No acute events. Not enjoying clear liquid diet. - Constitutional Vitals: Temp Pulse Resp BP Pulse Ox 98.5 F 84 18 101/55 97 07/15/17 19:29 07/15/17 19:29 07/15/17 20:38 07/15/17 19:29 07/15/17 20:38 General appearance: Present: A&O X 3, no acute distress, answers questions appropriately Exam: CVS: RRR Pulm: CTAB Abd; NT/ND, soft, normal bowel sounds Ext: no edema Internal Medicine: Result - Labs CBC & Chem 7: 07/15/17 11:15 07/15/17 05:30 Labs: Short CBC 07/15/17 07/15/17 Range/Units 05:30 11:15 WBC 4.7 (4.3-11.1) K/mcL Hgb 7.1 L 7.7 L (11.5-15.4) g/dL Hct 22.5 L 24.4 L (35.3-44.9) % Plt Count 95 L (140-400) K/mcL Neutrophils # 2.1 (1.6-8.9) K/mcL BMP 07/15/17 05:30 Sodium 145 Potassium 3.1 L Chloride 124 H Carbon Dioxide 18 L BUN 2 L Creatinine 0.63 Glucose 84 Calcium 7.6 L Consult Discharge Plan - Plan Referrals: Pierre Duran MD [Primary Care Provider] -
[2017-07-16] MEDS: 0.45 % Sodium Chloride w/KCl 20 MEQ/1,000 ML MLS IVC SCH (04:15)
[2017-07-16] MEDS: Pantoprazole 40 MG VIAL IVP SCH ×2 (05:23→17:35)
[2017-07-16 05:28] LABS: Basophils % 0.5 %; Mean Platelet Volume 12.6 fL (9.4-12.4)
[2017-07-16 05:29] LABS: Eosinophils # 0.1 K/mcL (0.0-0.6); Eosinophils % 2.3 %; Hematocrit 23.4 % (35.3-44.9); Hemoglobin 7.3 g/dL (11.5-15.4); Immature Granulocytes % 1.4 % (0-4); Immature Platelets 4.8 % (1.1-6.1); Lymphocytes # 1.5 K/mcL (0.6-4.6); Lymphocytes % 34.7 %; Mean Corpuscular HGB Conc 31.2 g/dL (31.6-35.5); Mean Corpuscular Hemoglobin 29.6 pg (28.0-33.3); Mean Corpuscular Volume 94.7 fL (83.0-100.0); Monocytes # 0.5 K/mcL (0.0-1.3); Monocytes % 12.3 %; Neutrophils # 2.1 K/mcL (1.6-8.9); Red Blood Count 2.47 M/mcL (3.82-4.97); Red Cell Distribution Width 19.1 % (11.5-14.5); Segmented Neutrophils % 48.8 %
[2017-07-16 05:32] LABS: BUN/Creatinine Ratio 4 (6-26); Blood Urea Nitrogen 2 mg/dL (6-20); Calcium 7.8 mg/dL (8.6-10.3); Carbon Dioxide 17 mEq/L (23-29); Chloride 120 mEq/L (98-107); Glucose 100 mg/dL (70-105); Osmolality,Calculated 286 (280-300); Potassium 3.3 mEq/L (3.5-5.1); Sodium 140 mEq/L (136-145); eGFR For African Americans > 60 (> 60); eGFR For Non-African Americans > 60 (> 60)
[2017-07-16 05:33] LABS: Platelet Count 95 K/mcL (140-400)
[2017-07-16] MEDS: Budesonide/Formoterol 160/4.5 MDI IH SCH ×2 (07:50→20:04)
[2017-07-16] MEDS: *HR* OxyCODONE/APAP 5/325 TABLET PO PRN ×2 (08:30→13:19)
[2017-07-16] MEDS: Gabapentin 300 MG CAPSULE PO SCH ×3 (08:31→21:48)
[2017-07-16] MEDS: Topiramate 100 MG TABLET PO SCH ×3 (08:31→21:48)
[2017-07-16] MEDS: Zinc Sulfate 220 MG CAPSULE PO SCH (08:32)
[2017-07-16] MEDS ORDERED: Potassium Chloride Elixir 20 MEQ/15 ML UDC PO ONE (11:24)
--- NOTE | 2017-07-16 21:32 | Internal Med Progress Note ---
Date of Encounter: 07/16/17 Time of Encounter: 10:39 - Assessment and plan (1) Colitis Current Visit: Yes Status: Acute Assessment and plan: Unsure if this is infectious versus inflammatory. She was negative for C. difficile. ESR mildly elevated. CRP is normal. GI is following a planning on doing upper and lower scopes this morning. We will continue with the IV antibiotics with Zosyn for now. We will continue with IV hydration. On IV PPI. Lactic acid came back normal. Not likely infectious, Zosyn discontinued 07/14. ADAT (2) Dehydration Current Visit: No Status: Resolved (3) Anemia Current Visit: No Status: Chronic Assessment and plan: Blood loss anemia. Hemoglobin was 11.1 earlier this month. She was 11.7 on May 17. GI consulted, underwent EGD showing linear rectal ulcer. Hemodynamically stable. She did require 1 units of PRBC at few days ago. Currently hemoglobin running in 7.1-7.7 range. Will need to hold IVF and check if there is dilutional component to this and recheck H&H in afternoon. If she continues to have gradual loss we will reconsult GI. Qualifiers: Anemia type: folate deficiency Folate deficiency anemia type: unspecified folate deficiency Qualified Code(s): D52.9 - Folate deficiency anemia, unspecified (4) Hypokalemia Current Visit: Yes Status: Acute Assessment and plan: Secondary to diarrhea. Potassium was added to IV fluids but now are held since patient is eating. Will need to supplement as needed. (5) Essential hypertension Current Visit: Yes Status: Acute (6) Chronic kidney disease (CKD) Current Visit: Yes Status: Acute Qualifiers: Chronic kidney disease stage: unspecified stage Qualified Code(s): N18.9 - Chronic kidney disease, unspecified (7) Schizoaffective disorder, bipolar type Current Visit: No Status: Acute Assessment and plan: I have restarted her antipsychotics now that we have a list. (8) Debility, unspecified Current Visit: No Status: Chronic (9) Movement disorder Current Visit: No Status: Chronic (10) Bipolar depression Current Visit: No Status: Chronic (11) Former heavy cigarette smoker (20-39 per day) Current Visit: No Status: Chronic - Subjective Interval history: 07/15 diet advanced, today patient able to tolerate food but stool having diarrhea, about 3 BM early in the day. - Constitutional Vitals: Temp Pulse Resp BP Pulse Ox 99.1 F 84 16 132/74 99 07/16/17 18:58 07/16/17 18:58 07/16/17 20:07 07/16/17 18:58 07/16/17 20:07 Exam: GEN: NAD CVS: RRR. S1, S2, No m/r/g RESP: CTAB ABD: Soft, NT, ND, +BS EXT: No edema. 2+ DP. No rashes NEURO: tremors at baseline, unchanged. Internal Medicine: Result - Labs CBC & Chem 7: 07/16/17 04:15 07/16/17 04:15 Labs: Short CBC 07/16/17 Range/Units 04:15 WBC 4.3 (4.3-11.1) K/mcL Hgb 7.3 L (11.5-15.4) g/dL Hct 23.4 L (35.3-44.9) % Plt Count 95 L (140-400) K/mcL Neutrophils # 2.1 (1.6-8.9) K/mcL BMP 07/16/17 04:15 Sodium 140 Potassium 3.3 L Chloride 120 H Carbon Dioxide 17 L BUN 2 L Creatinine 0.53 L Glucose 100 Calcium 7.8 L Consult Discharge Plan - Plan Referrals: Pierre Duran MD [Primary Care Provider] -
[2017-07-16] MEDS: Ondansetron 4 MG/2 ML VIAL IVP PRN (21:47)
[2017-07-16] MEDS: clonazePAM 0.5 MG TABLET PO PRN (21:55)
[2017-07-17 04:43] LABS: Basophils % 0.6 %; Eosinophils % 2.1 %; Hematocrit 23.8 % (35.3-44.9); Hemoglobin 7.5 g/dL (11.5-15.4); Immature Granulocytes % 1.5 % (0-4); Lymphocytes % 32.4 %; Mean Corpuscular HGB Conc 31.5 g/dL (31.6-35.5); Mean Corpuscular Hemoglobin 29.5 pg (28.0-33.3); Mean Corpuscular Volume 93.7 fL (83.0-100.0); Mean Platelet Volume 11.8 fL (9.4-12.4); Monocytes % 14.1 %; Platelet Count 102 K/mcL (140-400); Red Blood Count 2.54 M/mcL (3.82-4.97); Red Cell Distribution Width 19.5 % (11.5-14.5); Segmented Neutrophils % 49.3 %
[2017-07-17 04:44] LABS: Eosinophils # 0.1 K/mcL (0.0-0.6); Lymphocytes # 1.6 K/mcL (0.6-4.6); Monocytes # 0.7 K/mcL (0.0-1.3); Neutrophils # 2.4 K/mcL (1.6-8.9)
[2017-07-17 05:00] LABS: Blood Urea Nitrogen < 2 mg/dL (6-20)
[2017-07-17 05:14] LABS: Calcium 8.1 mg/dL (8.6-10.3); Carbon Dioxide 18 mEq/L (23-29); Chloride 120 mEq/L (98-107); Glucose 93 mg/dL (70-105); Potassium 3.7 mEq/L (3.5-5.1); Sodium 141 mEq/L (136-145); eGFR For African Americans > 60 (> 60); eGFR For Non-African Americans > 60 (> 60)
[2017-07-17] MEDS: Pantoprazole 40 MG VIAL IVP SCH (05:54)
[2017-07-17] MEDS: Topiramate 100 MG TABLET PO SCH ×2 (08:32→14:33)
[2017-07-17] MEDS: Gabapentin 300 MG CAPSULE PO SCH ×2 (08:32→14:33)
[2017-07-17] MEDS: Zinc Sulfate 220 MG CAPSULE PO SCH (08:32)
[2017-07-17 10:03] VITALS: BP 107/66
[2017-07-17] MEDS: Budesonide/Formoterol 160/4.5 MDI IH SCH (10:24)
[2017-07-17] MEDS: Ondansetron 4 MG/2 ML VIAL IVP PRN (13:14)
[2017-07-17] MEDS ORDERED: Loperamide 1 MG/5 ML UDC PO PRN (13:36)
[2017-07-17] MEDS: 0.9 % Sodium Chloride w KCl 20 MEQ/1,000 ML MLS IVC SCH (13:46)
--- NOTE | 2017-07-17 13:59 | Discharge Summary ---
Date of Encounter: 07/17/17 Time of Encounter: 13:49 - Discharge Diagnosis (1) Colitis Priority: Primary Status: Acute (2) Dehydration Priority: Secondary Status: Resolved (3) Anemia Priority: Secondary Status: Chronic Qualifiers: Anemia type: folate deficiency Folate deficiency anemia type: unspecified folate deficiency Qualified Code(s): D52.9 - Folate deficiency anemia, unspecified (4) Hypokalemia Priority: Secondary Status: Acute (5) Essential hypertension Priority: Secondary Status: Acute (6) Chronic kidney disease (CKD) Priority: Secondary Status: Acute Qualifiers: Chronic kidney disease stage: unspecified stage Qualified Code(s): N18.9 - Chronic kidney disease, unspecified (7) Schizoaffective disorder, bipolar type Priority: Secondary Status: Acute (8) Debility, unspecified Priority: Secondary Status: Chronic (9) Movement disorder Priority: Secondary Status: Chronic (10) Bipolar depression Priority: Secondary Status: Chronic (11) Former heavy cigarette smoker (20-39 per day) Priority: Secondary Status: Chronic - Discharge Medications Prescriptions: Ferrous Sulfate 325 mg PO DAILY@0800 #30 tablet Home Medications: Albuterol Sulfate [Albuterol Inhaler] 2 puff IH Q4H PRN 07/28/15 [History] Omeprazole [PriLOSEC] 20 mg PO DAILY 07/28/15 [History] Levothyroxine [Synthroid] 125 mcg PO QAM 11/30/15 [History] Vitamin E 1,000 unit PO DAILY 11/30/15 [History] Budesonide/Formoterol 160/4.5 [Symbicort 160/4.5] 2 puff IH BIDR 10/03/16 [ History] Escitalopram [Lexapro] 20 mg PO DAILY 10/03/16 [History] Gabapentin [Neurontin] 1,200 mg PO TID 10/03/16 [History] Verapamil ER (24 HR) [Calan SR] 120 mg PO DAILY 10/03/16 [History] Quetiapine Fumarate [Seroquel] 400 mg PO HS #28 tablet 10/07/16 [Rx] Amantadine [Symmetrel] 100 mg PO QID 07/09/17 [History] Mirabegron [Myrbetriq] 50 mg PO DAILY 07/09/17 [History] Pentosan Polysulfate Sodium [Elmiron] 100 mg PO TID 07/09/17 [History] Topiramate [Topamax] 200 mg PO TID 07/09/17 [History] clonazePAM [Klonopin] 2 mg PO BID PRN 07/09/17 [History] traZODone [TraZODone] 300 mg PO HS PRN 07/09/17 [History] Ferrous Sulfate 325 mg PO DAILY@0800 #30 tablet 07/17/17 [Rx] Loperamide [Imodium] 2 mg PO Q8HR PRN #30 capsule 07/17/17 [Rx] Melatonin 3 mg PO HS PRN tablet 07/17/17 [Rx] Allergies/Adverse Reactions: 3 Allergy/AdvReac Type Severity Reaction Status Date / Time aripiprazole [From Abilify] Allergy Difficulty Verified 06/28/17 16:26 Breathing aspirin Allergy Difficulty Verified 06/28/17 16:26 Breathing ibuprofen Allergy Difficulty Verified 06/28/17 16:26 Breathing latex Allergy Difficulty Verified 06/28/17 16:26 Breathing metronidazole [From Flagyl] Allergy Difficulty Verified 06/28/17 16:26 Breathing naproxen [From Aleve] Allergy Difficulty Verified 06/28/17 16:26 Breathing Sulfa (Sulfonamide Allergy Vomiting Verified 06/28/17 16:26 Antibiotics) Date of admission: 07/08/17 22:14 Primary care physician: Pierre Duran MD Consults: 07/08/17 23:52 Consult to Nutrition [CONS] Stat Comment: Consulting Provider: NUTRITION Reason for Dietary Consult: MST Score 07/09/17 10:43 Consult to Occupational Therapy [CONS] Routine Comment: Evaluate, develop and implement POC Reason for Consult: therapy/placement needs Consult to Physical Therapy [CONS] Routine Comment: Evaluate, develop and implement POC Reason for Consult: PT eval 07/11/17 08:43 Consult to Gastroenterology [CONS] Routine Consulting Provider: Gastroenterology Ros Reason for Consult: GI bleed/colitis Call Completed: Yes 07/11/17 16:06 Consult to Invasive Line Access Team [CONS] Routine Reason for Consult: limited access Line Type: EPIV PICC line indications: Limited vascular access Discharging clinician: Savita Salvador - Patient Status Disposition: Home, Self-Care Condition: Fair Functional capacity at discharge: independent ambulation Overall status at discharge: patient is progressing back to baseline - Discharge Instructions Follow Up With: Pierre Duran MD [Primary Care Provider] - - Diet and Activity Activity: increase activity as tolerated Diet: advance to your usual diet Hospital course: Patient is a 36-year-old female presents to the emergency department for weakness, diarrhea, N/V. The patient was in emergency department couple weeks ago for dehydration. She has had poor appetite, denies fevers/chills, melena, hematochezia. She /becomes fatigued with short amount of ambulation. She reports to ED physician she has 7/10 chest pain, currently not having at the moment. Patient denies any lightheadedness or dizziness. No sick contacts. In the ED she had a CT abdomen/pelvis with findings consistent with colitis. A c diff PCR was done and is negative. She was found to be hypotensive with BP 87 /48 initially with HR wnl, eventually got up to 101/48 with again normal HR. She is afebrile without leukocytosis, hypokalemic at 2.3 without arrhythmia. In the ED she had potassium replacement and 2L IVF given. She was admitted and given IV fluid hydration. She was treated for possible GI infection with Zosyn. Stool studies were done and negative. Patient had acute on chronic anemia requiring 1 units PRBC. She had one episode of bloody BM and GI was consulted. Her hemoglobin dropped from 9.2 on admission to 7.1 after 3 days requiring 1 units PRBC on 07/12. Colonscopy was done on 07/13 showing long linear rectal ulcer that was not bleeding. CRP and ESR were normal, since this was less likely infectious at this point, antibiotics were held. She was able to advance her diet. She still did require IVF from dehydration but BM lessened in frequency. She had non anion gap acidosis from diarrhea which improved. Patient hemoglobin stabilized at 7.5. She was discharged home with iron supplements, multivitamin, loperamide, and instructed to get close follow- up with her primary care physician. Repeat BMP and CBC in 3 days. This was deemed likely ischemic colitis from hypotensive episode. - Time Spent with Patient Total time spent providing and/or coordinating discharge services: - Constitutional Vitals: Temp Pulse Resp BP Pulse Ox 98.2 F 86 14 107/66 98 07/17/17 10:02 07/17/17 10:02 07/17/17 10:24 07/17/17 10:02 07/17/17 10:24 General appearance: Present: A&O X 3, no acute distress, answers questions appropriately - Head Head exam: Present: atraumatic, normocephalic - Eye Eye exam: Present: PERRL, conjuntiva pink, sclera anicteric Pupils: Present: PERRL - Neck Neck exam general surgery: Present: supple, trachea midline. Absent: lymphadenopathy - Respiratory Respiratory exam: Present: CTAB. Absent: accessory muscle use, rales, rhonchi, wheezes - Cardiovascular Cardiovascular exam: Present: RRR, +S1, +S2. Absent: diastolic murmur, gallop, rubs, systolic murmur - GI/Abdominal GI/Abdominal exam: Present: normal bowel sounds, soft, no peritoneal signs. Absent: distended, tenderness - Extremities Exam Extremities exam: Present: warm, radial pulses palpable and symmetrical. Absent : calf tenderness, cyanotic, pedal edema - Neurological Exam Neurological exam: Present: CN II-XII intact, oriented X3. Absent: pronater drift, facial droop, speech deficit Additional comments: Baseline tremors - Skin Skin exam: Present: dry, intact
== END 2017-07-17 15:40 | disposition home or self-care (01) | DRG 386 ==
LOC: EMEROO 16:38 → 3ANU 16:38
PROVIDERS: ADMIT Student in an Organized Health Care Education/Training Program; ATTEND Internal Medicine
PROC: ENDOEBX (2017-07-13 13:00)

== ENCOUNTER 2017-08-28 10:00 | Inpatient (IN) ==
[2017-08-28] MEDS ORDERED: 0.9 % Sodium Chloride 1,000 ML IVC ONE (11:17)
[2017-08-28 11:33] LABS: Basophils % 0.8 %; Eosinophils # 0.1 K/mcL (0.0-0.6); Eosinophils % 2.8 %; Hematocrit 30.3 % (35.3-44.9); Hemoglobin 9.3 g/dL (11.5-15.4); Immature Granulocytes % 0.3 % (0-4); Lymphocytes # 1.1 K/mcL (0.6-4.6); Lymphocytes % 28.9 %; Mean Corpuscular HGB Conc 30.7 g/dL (31.6-35.5); Mean Corpuscular Hemoglobin 29.3 pg (28.0-33.3); Mean Corpuscular Volume 95.6 fL (83.0-100.0); Mean Platelet Volume 13.1 fL (9.4-12.4); Monocytes # 0.5 K/mcL (0.0-1.3); Monocytes % 12.9 %; Neutrophils # 2.1 K/mcL (1.6-8.9); Platelet Count 110 K/mcL (140-400); Red Blood Count 3.17 M/mcL (3.82-4.97); Red Cell Distribution Width 15.4 % (11.5-14.5); Segmented Neutrophils % 54.3 %
[2017-08-28 11:48] LABS: Albumin 3.3 g/dL (3.5-5.7); Albumin/Globulin Ratio 1.1 (1.1-2.2); Bilirubin,Total 0.4 mg/dL (0.3-1.0); Calcium 9.7 mg/dL (8.6-10.3); Globulin 2.9 g/dL (2.4-3.5); Potassium 3.4 mEq/L (3.5-5.1); Total Protein 6.2 g/dL (6.4-8.9)
--- NOTE | 2017-08-28 12:02 | Emergency Department Note ---
Disposition Clinical Impression: FAISAL (acute kidney injury), Pancytopenia, Tremor, Movement disorder Failure to thrive Qualifiers: Failure to thrive age range: in adult Qualified Code(s): R62.7 - Adult failure to thrive Disposition: Admitted As Inpatient Condition: Good Referrals: Pierre Duran MD [Primary Care Provider] - Forms: ED Satisfaction Letter, Work/School Release Time of Disposition: 13:20 General Adult HPI - General Chief complaint: ED General Medical Stated complaint: Tremors Time Seen by Provider: 08/28/17 10:03 Source: patient, EMS Mode of arrival: EMS Limitations: physical limitation Nursing Notes Reviewed: Yes Vital Signs Reviewed: Yes - History of Present Illness HPI Narrative: 36-year-old female presenting to the emergency department complaining of increase in her tremors. Patient has a significant past medical history of schizoaffective disorder, bipolar disorder, chronic kidney disease. Patient is on multiple antipsychotics. Patient was seen for similar symptoms in May 2017 and diagnosed with tardive dyskinesia. According to the patient and family members at bedside patient has always had a resting tremor. It has significantly gotten worse in the past week. It has started to affect her daily activities of life. Patient is unable to hold a cup or feed herself. Due to this she has had decreased oral intake for the past 2 days. Patient denies any nausea vomiting or diarrhea. Patient is a poor historian. According to family members at bedside she has not complaining of left-sided rib pain. They believe this is due to a family member trying to move her and lifting her too aggressively. Patient denies any fevers, shortness of breath or chest pain. She denies any recent falls or hitting her head. She denies syncope. Pain Scale: 3 - Related Data Home Medications Medication Instructions Recorded Confirmed Albuterol Sulfate [Albuterol 2 puff IH Q4H PRN 07/28/15 08/28/17 Inhaler] Omeprazole [PriLOSEC] 20 mg PO DAILY 07/28/15 08/28/17 Levothyroxine [Synthroid] 125 mcg PO QAM 11/30/15 08/28/17 Escitalopram [Lexapro] 20 mg PO DAILY 10/03/16 08/28/17 Gabapentin [Neurontin] 1,200 mg PO TID 10/03/16 08/28/17 Verapamil ER (24 HR) [Calan SR] 120 mg PO DAILY 10/03/16 08/28/17 Amantadine [Symmetrel] 100 mg PO QID 07/09/17 08/28/17 Mirabegron [Myrbetriq] 50 mg PO DAILY 07/09/17 08/28/17 Pentosan Polysulfate Sodium 100 mg PO TID 07/09/17 08/28/17 [Elmiron] Topiramate [Topamax] 200 mg PO TID 07/09/17 08/28/17 clonazePAM [Klonopin] 2 mg PO BID PRN 07/09/17 08/28/17 traZODone [TraZODone] 300 mg PO HS PRN 07/09/17 08/28/17 Cholecalciferol (D-3) [Vitamin D] 1,000 unit PO DAILY 08/28/17 08/28/17 Previous Rx's Medication Instructions Recorded Quetiapine Fumarate [Seroquel] 400 mg PO HS #28 tablet 10/07/16 Ferrous Sulfate 325 mg PO DAILY@0800 #30 tablet 07/17/17 Loperamide [Imodium] 2 mg PO Q8HR PRN #30 capsule 07/17/17 Melatonin 3 mg PO HS PRN tablet 07/17/17 Multivitamin [One Daily 1 each PO DAILY #30 tablet 07/17/17 Multivitamin] Allergies Allergy/AdvReac Type Severity Reaction Status Date / Time aripiprazole [From Abilify] Allergy Difficulty Verified 06/28/17 16:26 Breathing aspirin Allergy Difficulty Verified 06/28/17 16:26 Breathing ibuprofen Allergy Difficulty Verified 06/28/17 16:26 Breathing latex Allergy Difficulty Verified 06/28/17 16:26 Breathing metronidazole [From Flagyl] Allergy Difficulty Verified 06/28/17 16:26 Breathing naproxen [From Aleve] Allergy Difficulty Verified 06/28/17 16:26 Breathing Sulfa (Sulfonamide Allergy Vomiting Verified 06/28/17 16:26 Antibiotics) All systems ED: reviewed and negative except as stated. Cardiovascular: Denies: chest pain, palpitations Respiratory: Reports: cough. Denies: hemoptysis Gastrointestinal: Denies: abdominal pain, nausea, vomiting Integumentary: Denies: rash Endocrine: Reports: fatigue Past Medical History - Past Medical History Attestation: Yes The following information was validated with the patient. Medical history: Reports: arthritis, asthma, COPD, GERD, hypertension, migraine , osteoporosis, seizures, thyroid disease, syncope, other Surgical history: Reports: orthopedic, other, sinus surgery, other Psychiatric history: Reports: anxiety, bipolar, depression, prior suicide attempt, schizophrenia, previous psychiatric hospitalization, other DEVELOPMENT ENG history: Reports: no DEVELOPMENT ENG history - Social History Smoking Status: Never smoker Smokeless Tobacco Status: No Alcohol use: Reports: none Drug use: Reports: none Physical Exam - General Limitations: physical limitation General appearance: alert, in no apparent distress - Head Head exam: atraumatic, normocephalic - Eye Eye exam: Present: normal appearance, EOMI. Absent: scleral icterus, conjunctival injection - ENT ENT exam: mucous membranes dry - Neck Neck exam: Present: full ROM - Chest Chest inspection: Present: normal inspection, symmetric chest wall rise. Absent : tenderness, rash - Respiratory Respiratory exam: Present: normal lung sounds bilaterally. Absent: respiratory distress, wheezes - Cardiovascular Cardiovascular exam: Present: regular rate, normal rhythm, normal heart sounds - Abdominal Exam Abdominal exam: Present: soft, tenderness (left sided rib tenderness to palpation). Absent: distention, guarding, rebound Abdominal tenderness: Present: mild - Extremities Exam Extremities exam: Present: normal inspection, normal capillary refill. Absent: tenderness - Neurological Exam Neurological exam: Present: alert, oriented X3, CN II-XII intact, other (tremor noted at rest, tongue protrusion noted as well) - Skin Skin exam: Present: warm, dry Course Course Narrative: 36-year-old female presenting to the emergency department for increasing tremors. Patient is on multiple antipsychotic medicines and patient does have a history of pancytopenia and hypokalemia. We will obtain basic lab work including CBC and CMP. We will also obtain a left rib series and chest x-ray due to tenderness upon palpation of the ribs. Also obtain a CT of the head without contrast due to new worsening tremor. Patient is alert and oriented 3 in the room. She has resting tremor on physical exam but otherwise physical exam is within normal limits. Patient and family at bedside are poor historians. Patient's disposition pending imaging and lab test results. patient agrees with this plan. - Reevaluation(s) Reevaluation #1: Patient's lab work showed an elevated creatinine level. Most likely due to decreased oral intake due to patient being drawn exam. 1 L fluid bolus given to patient. Patient also has decreased TSH. Due to inability to perform activities of daily life along with acute kidney injury we will admit the patient at this time. I spoke with the hospitalist on-call Dr. Salvador who agrees to accept the patient. The patient is alert and oriented 3 in room and stable vital signs at this time. They agree with this plan. Vital Signs Temperature 98.9 F 08/28/17 10:10 Pulse Rate 82 08/28/17 10:10 Respiratory Rate 16 08/28/17 10:10 Blood Pressure 103/77 08/28/17 10:10 O2 Sat by Pulse Oximetry 96 08/28/17 10:10 Temperature 98.9 F 08/28/17 10:10 Pulse Rate 86 08/28/17 13:04 Respiratory Rate 16 08/28/17 13:04 Blood Pressure 100/50 08/28/17 13:04 O2 Sat by Pulse Oximetry 98 08/28/17 13:04 Oxygen Delivery Oxygen Delivery Nasal Cannula Medical Decision Making - Medical Records Medical records reviewed: Yes I reviewed the patient's medical records. - Lab Data Lab results reviewed: Yes I reviewed the patient's lab results. Result diagrams: 08/28/17 11:25 08/28/17 11:25 Lab Results 08/28/17 08/28/17 08/28/17 Range/Units 11:25 11:25 12:38 WBC 3.9 L (4.3-11.1) K/mcL RBC 3.17 L (3.82-4.97) M/mcL Hgb 9.3 L (11.5-15.4) g/dL Hct 30.3 L (35.3-44.9) % MCV 95.6 (83.0-100.0) fL MCH 29.3 (28.0-33.3) pg MCHC 30.7 L (31.6-35.5) g/dL RDW 15.4 H (11.5-14.5) % Plt Count 110 L (140-400) K/mcL MPV 13.1 H (9.4-12.4) fL Immature Gran % 0.3 (0-4) % Seg Neutrophils % 54.3 % Lymphocytes % 28.9 % Monocytes % 12.9 % Eosinophils % 2.8 % Basophils % 0.8 % Neutrophils # 2.1 (1.6-8.9) K/mcL Lymphocytes # 1.1 (0.6-4.6) K/mcL Monocytes # 0.5 (0.0-1.3) K/mcL Eosinophils # 0.1 (0.0-0.6) K/mcL Basophils # 0.0 (0.0-0.2) K/mcL Sodium 139 (136-145) mEq/L Potassium 3.4 L (3.5-5.1) mEq/L Chloride 105 (98-107) mEq/L Carbon Dioxide 27 (23-29) mEq/L BUN 20 (6-20) mg/dL Creatinine 1.47 H (0.60-1.20) mg/dL Est GFR ( Amer) 48 L (> 60) Est GFR (Non-Af Amer) 40 L (> 60) BUN/Creatinine Ratio 14 (6-26) Glucose 79 (70-105) mg/dL Calculated Osmolality 290 (280-300) Calcium 9.7 (8.6-10.3) mg/dL Magnesium 2.0 (1.6-2.6) mg/dL Total Bilirubin 0.4 (0.3-1.0) mg/dL AST 27 (13-39) Units/L ALT 49 (7-52) Units/L Alkaline Phosphatase 153 H (34-104) Units/L Serum Total Protein 6.2 L (6.4-8.9) g/dL Albumin 3.3 L (3.5-5.7) g/dL Globulin 2.9 (2.4-3.5) g/dL Albumin/Globulin Ratio 1.1 (1.1-2.2) TSH 0.040 L (0.340-5.600) mcIU/mL Urine Color Dark Yellow (Yellow) Urine Clarity Slightly Hazy (Clear) Urine pH 5.5 (5.0-8.0) pH Units Ur Specific [place] 1.021 (1.010-1.025) Urine Protein Negative (Neg-Trace) mg/dL Urine Glucose (UA) Normal (Normal) mg/dL Urine Ketones Negative (Negative) mg/dL Urine Blood Negative (Negative) Urine Nitrite Negative (Negative) Urine Bilirubin Negative (Negative) Urine Urobilinogen Normal (Normal) mg/dL Ur Leukocyte Esterase Trace H (Negative) - Radiology Data Radiology results reviewed: Yes I reviewed the patient's radiology results. Ribs w/Chest X-Ray 08/28/17 11:17 IMPRESSION: No rib fracture demonstrated D/ / Cirilo Donahue MD / Cirilo Donahue MD Interpreting Provider: Cirilo Donahue MD Head CT 08/28/17 11:18 IMPRESSION: No acute intracranial abnormality. No significant change from prior exam. Motion artifact limits assessment D/ / Guerita Yip MD / Guerita Yip MD Interpreting Provider: Guerita Yip MD - EKG Data EKG #1 EKG attestation: Yes I reviewed and interpreted this EKG. EKG results narrative: Sinus rhythm. 81 bpm. Nonspecific T-wave abnormality. AR interval 141, QRS 97 , QTC 398. No signs of ST segment elevation. When compared to previous EKG completed on July 08 2017 new nonspecific T-wave abnormalities noted. Attestation Statement - Attestation Attestation: I examined this patient and my medical decision-making was reviewed with the Resident Physician, Dr. Olsen. I agree with the documented findings, disposition and treatment plan as described except to the extent set forth below. Patient is a 36-year-old white female who presents to the emergency department brought by her parents today due to failure to thrive and inability to care for herself. Apparently been caring for her they state for approximately the last 2 years and she has been having gradual decline in her level of functioning at home. Patient was last admitted in July for colitis and hypokalemia and appears to have been diagnosed with a movement disorder but unclear as to the true etiology. Parents report that her movement disorder has seemed to become more intense primarily with her upper extremities and this decline is happening over the past month as well as an inability for her to adequately feed herself due to the problems she is experiencing. She arrives with dry lips and mucous membranes appears malnourished and dehydrated. Patient also had a history of anemia and required a blood transfusion during her prior hospitalization admission. Patient and family state they have not seen a doctor since she left the hospital in July because of difficulty transporting her to see anyone. She sees Dr. Sanabria in neurology for her movement disorder in the last communication they received from him according to the mom that they were suspicious for possible Parkinson's disease. Patient has not had a confirmatory diagnosis to explain her decline in functioning and movement disorder. I agree with the patient's physical exam findings as documented. Patient appears tired and dehydrated and cachectic. Patient denies any pain, no falls or injuries. Pt had IV saline while established and due to her history of hypokalemia we did obtain an EKG. EKG did not show any changes consistent with hypokalemia was normal sinus rhythm with no change compared to prior. IV fluids were started, and patient was sent for CT imaging of the head as well as a chest x-ray. She was complaining of some left lateral rib pain there is no overlying bruising no crepitus or subcutaneous air palpated in the chest wall but she says when her parents transfer her in the grabbed her around her chest and help transfer her and she felt some pain during the last transfer today. CT imaging of the head as well as a chest x-ray with rib series was unremarkable for any injuries or abnormalities. Lab evaluation shows a pancytopenia but hemoglobin stable. She does have an elevated creatinine from prior so acute kidney injury today at unclear etiology. Patient also requires a social work supervisor consult for possible placement as he is having difficulty caring for her at home. Patient will be admitted to the hospitalist service.
[2017-08-28 12:03] LABS: Thyroid Stimulating Hormone 0.04 mcIU/mL (0.340-5.600)
[2017-08-28 12:53] LABS: Bilirubin,Urine Negative (Negative); Blood,Urine Negative (Negative); Color,Urine Dark Yellow (Yellow); Glucose,Urine (UA) Normal (Normal); Ketones,Urine Negative (Negative); Leukocyte Esterase,Urine Trace (Negative); Nitrite,Urine Negative (Negative); PH,Urine 5.5 pH Units (5.0-8.0); Protein,Urine Negative (Neg-Trace); Specific Gravity,Urine 1.021 (1.010-1.025); Urobilinogen,Urine Normal (Normal)
[2017-08-28 12:57] LABS: Squamous Epithelial Cell,Urine Many per lpf (None-Few); WBC,Urine 0-3 per hpf (0-3)
[2017-08-28 12:58] LABS: Clarity,Urine Slightly Hazy (Clear)
[2017-08-28 13:24] LABS: Granular Casts,Urine Few per lpf (None Seen); Hyaline Casts,Urine Few per lpf (None-Few)
[2017-08-28 13:25] LABS: Bacteria,Urine Few per hpf (None-Few)
--- NOTE | 2017-08-28 15:45 | Internal Med Progress Note ---
Date of Encounter: 08/28/17 Time of Encounter: 15:29 - Assessment and plan (1) Tremor Current Visit: Yes Status: Acute Assessment and plan: Known history, currently worsening. Possibly related to dehydration/acute illness. Will treat patient for dehydration. Consult Neurology. Will hold Austedo for now, until Neurology service able to evaluate patient. (2) Acute kidney injury superimposed on chronic kidney disease Current Visit: Yes Status: Acute (3) Dehydration Current Visit: No Status: Resolved (4) Essential hypertension Current Visit: No Status: Acute (5) Bipolar depression Current Visit: No Status: Chronic (6) Former heavy cigarette smoker (20-39 per day) Current Visit: No Status: Chronic (7) History of seizures Current Visit: No Status: Chronic (8) Schizoaffective disorder, bipolar type Current Visit: No Status: Chronic (9) DVT prophylaxis Current Visit: No Status: Acute - Subjective Interval history: 36 year old female with known history of tremors since childhood, debility, anemia, hypertension, chronic kidney disease, schizoaffective disorder, former smoker presented today with family for worsening tremors for 2 weeks. Patient also having diarrhea which has resolved 4 days ago, vomiting, low grade fevers. No sick contacts. Patient was seen in Neurology office for tremors two weeks ago and was prescribed Austedo 6 mg BID. Patient has only been taking once daily. Patient fell earlier this morning her brother was trying to help put her in car to take her to hospital. She fell on her left rib region and both knees which are now painful. X-ray in ED negative for rib fracture. Did note gaseous distention of visualized intestinal loops possibly due to ileus. Knee pain is rated 2/10 both knees at rest but significantly worsens if someone moves or bumps in to her. - Constitutional Vitals: Temp Pulse Resp BP Pulse Ox 98.9 F 86 16 103/62 98 08/28/17 10:10 08/28/17 13:04 08/28/17 14:13 08/28/17 14:13 08/28/17 13:04 General appearance: Present: A&O X 3, answers questions appropriately - Head Head exam: Present: atraumatic, normocephalic - Eye Eye exam: Present: PERRL, conjuntiva pink, sclera anicteric Pupils: Present: PERRL - ENT ENT exam: Present: mucous membranes dry - Respiratory Respiratory exam: Present: CTAB. Absent: accessory muscle use, rales, rhonchi, wheezes - Cardiovascular Cardiovascular exam: Present: RRR, +S1, +S2. Absent: diastolic murmur, gallop, rubs, systolic murmur - GI/Abdominal GI/Abdominal exam: Present: normal bowel sounds, soft, no peritoneal signs. Absent: distended, tenderness - Neurological Exam Neurological exam: Present: oriented X3 Additional comments: Resting tremor of mouth, and upper extremities Internal Medicine: Result - Labs CBC & Chem 7: 08/28/17 11:25 08/28/17 11:25 Consult Discharge Plan - Plan Referrals: Pierre Duran MD [Primary Care Provider] -
[2017-08-28] MEDS: 0.9 % Sodium Chloride 1,000 ML IVC SCH ×2 (16:08→23:33)
[2017-08-28] MEDS ORDERED: traZODone 50 MG TABLET PO PRN (16:18)
[2017-08-28] MEDS ORDERED: clonazePAM 1 MG TABLET PO PRN (16:18)
[2017-08-28] MEDS ORDERED: Melatonin 3 MG TABLET PO PRN (16:18)
--- NOTE | 2017-08-28 16:18 | Internal Med History&Physical ---
Date of Encounter: 08/28/17 Time of Encounter: 16:15 Assessment and Plan (1) Tremor Current visit: Yes Status: Acute Known history since childhood. Unsure why is worsening, possibly related to acute illness Will consult Neurology Continue supportive treatment with IVF Continue Amantadine Hold Seroquel until patient is better hydrated. Hold Austedo for now (2) Acute kidney injury superimposed on chronic kidney disease Current visit: Yes Status: Acute Secondary to dehydration. Continue IVF and recheck in AM (3) Dehydration Current visit: No Status: Resolved (4) Essential hypertension Current visit: No Status: Acute Verapamil (5) Bipolar depression Current visit: No Status: Chronic (6) Former heavy cigarette smoker (20-39 per day) Current visit: No Status: Chronic (7) History of seizures Current visit: No Status: Chronic Klonopin (8) Schizoaffective disorder, bipolar type Current visit: No Status: Chronic (9) DVT prophylaxis Current visit: No Status: Acute heparin sq 5000 units bid Internal Medicine - H&P: HPI History of present illness: 36 year old female with known history of tremors since childhood, debility, anemia, hypertension, chronic kidney disease, schizoaffective disorder, former smoker presented today with family for worsening tremors for 2 weeks. Patient also having diarrhea which has resolved 4 days ago, vomiting, low grade fevers. No sick contacts. Patient was seen in Neurology office for tremors two weeks ago and was prescribed Austedo 6 mg BID. Patient has only been taking once daily. Patient fell earlier this morning her brother was trying to help put her in car to take her to hospital. She fell on her left rib region and both knees which are now painful. X-ray in ED negative for rib fracture. Did note gaseous distention of visualized intestinal loops possibly due to ileus. Knee pain is rated 2/10 both knees at rest but significantly worsens if someone moves or bumps in to her. Past Med Surg Social Fam HX - Past Medical History Medical history: arthritis, asthma, COPD, GERD, hypertension, migraine, osteoporosis, seizures, thyroid disease, syncope, other Psychiatric history: anxiety, bipolar, depression, prior suicide attempt, schizophrenia, previous psychiatric hospitalization, other - Past Surgical History Surgical History: orthopedic, other, sinus surgery, other - Social History Smoking Status: Never smoker Smokeless Tobacco Status: No Alcohol use: none Drug use: none - Family History Mother Daughter Family Member Ethnicity: Non- Mother Family Member Ethnicity: Non- Living Status: Still Living Hx Family Respiratory Disorders: Yes Hx Family Cancer: Yes Internal Medicine - H&P: Meds Albuterol Sulfate [Albuterol Inhaler] 2 puff IH Q4H PRN 07/28/15 [History] Omeprazole [PriLOSEC] 20 mg PO DAILY 07/28/15 [History] Levothyroxine [Synthroid] 125 mcg PO QAM 11/30/15 [History] Escitalopram [Lexapro] 20 mg PO DAILY 10/03/16 [History] Gabapentin [Neurontin] 1,200 mg PO TID 10/03/16 [History] Verapamil ER (24 HR) [Calan SR] 120 mg PO DAILY 10/03/16 [History] Quetiapine Fumarate [Seroquel] 400 mg PO HS #28 tablet 10/07/16 [Rx] Amantadine [Symmetrel] 100 mg PO QID 07/09/17 [History] Mirabegron [Myrbetriq] 50 mg PO DAILY 07/09/17 [History] Pentosan Polysulfate Sodium [Elmiron] 100 mg PO TID 07/09/17 [History] Topiramate [Topamax] 200 mg PO TID 07/09/17 [History] clonazePAM [Klonopin] 2 mg PO BID PRN 07/09/17 [History] traZODone [TraZODone] 300 mg PO HS PRN 07/09/17 [History] Ferrous Sulfate 325 mg PO DAILY@0800 #30 tablet 07/17/17 [Rx] Loperamide [Imodium] 2 mg PO Q8HR PRN #30 capsule 07/17/17 [Rx] Melatonin 3 mg PO HS PRN tablet 07/17/17 [Rx] Multivitamin [One Daily Multivitamin] 1 each PO DAILY #30 tablet 07/17/17 [Rx] Cholecalciferol (D-3) [Vitamin D] 1,000 unit PO DAILY 08/28/17 [History] 3 Allergy/AdvReac Type Severity Reaction Status Date / Time aripiprazole [From Abiliy] Allergy Difficulty Verified 06/28/17 16:26 Breathing aspirin Allergy Difficulty Verified 06/28/17 16:26 Breathing ibuprofen Allergy Difficulty Verified 06/28/17 16:26 Breathing latex Allergy Difficulty Verified 06/28/17 16:26 Breathing metronidazole [From Flagyl] Allergy Difficulty Verified 06/28/17 16:26 Breathing naproxen [From Aleve] Allergy Difficulty Verified 06/28/17 16:26 Breathing Sulfa (Sulfonamide Allergy Vomiting Verified 06/28/17 16:26 Antibiotics) All Systems PM: A 10-system review of systems was performed and is negative for pertinent findings except as documented above in the HPI. Review of systems: As per HPI - Constitutional Vitals: Temp Pulse Resp BP Pulse Ox 97.8 F 78 18 94/45 97 08/28/17 15:12 08/28/17 15:12 08/28/17 15:12 08/28/17 15:12 08/28/17 15:12 General appearance: Present: A&O X 3, answers questions appropriately - Head Head exam: Present: atraumatic, normocephalic - ENT ENT exam: Present: mucous membranes dry - Respiratory Respiratory exam: Present: CTAB. Absent: accessory muscle use, rales, rhonchi, wheezes - Cardiovascular Cardiovascular exam: Present: RRR, +S1, +S2. Absent: diastolic murmur, gallop, rubs, systolic murmur - GI/Abdominal GI/Abdominal exam: Present: normal bowel sounds, soft, no peritoneal signs. Absent: distended, tenderness - Extremities Exam Additional comments: Both knees have tenderness and slight effusion. Left knee has excoriation that is not bleeding. - Skin Additional comments: Excoriation of left knee Bilateral lower extremities with dermatitis Internal Med - H&P Results - Labs CBC & Chem 7: 08/28/17 11:25 08/28/17 11:25
[2017-08-28] MEDS ORDERED: Acetaminophen 325 MG TABLET PO PRN (16:24)
[2017-08-28] MEDS ORDERED: *HR* OxyCODONE Immed Rel 5 MG TABLET PO PRN (16:24)
[2017-08-28] MEDS ORDERED: Naloxone 0.4 MG/ML INJ IVP PRN (16:24)
[2017-08-28] MEDS: *HR* Heparin 5,000 UNIT/ML VIAL SQ SCH (16:57)
[2017-08-28] MEDS: TRIFLURIDINE OP SCH ×3 (17:33→23:35)
[2017-08-28] MEDS: Gabapentin 300 MG CAPSULE PO SCH (20:41)
[2017-08-28] MEDS: Ciprofloxacin OPTH Soln 2.5 ML BOTTLE BOTH EYES SCH ×2 (20:42→23:35)
[2017-08-28] MEDS: (Pentosan Polysulfate Sodium [Elmiron] 100 MG) PO SCH (20:46)
[2017-08-28] MEDS: Topiramate 100 MG TABLET PO SCH (20:46)
[2017-08-29] MEDS: Ciprofloxacin OPTH Soln 2.5 ML BOTTLE BOTH EYES SCH ×6 (03:48→23:07)
[2017-08-29] MEDS: TRIFLURIDINE OP SCH ×5 (03:48→20:51)
[2017-08-29 04:59] LABS: Eosinophils # 0.2 K/mcL (0.0-0.6); Eosinophils % 4.1 %; Hematocrit 28.3 % (35.3-44.9); Hemoglobin 8.5 g/dL (11.5-15.4); Immature Granulocytes % 0.5 % (0-4); Lymphocytes # 1.4 K/mcL (0.6-4.6); Lymphocytes % 35.3 %; Mean Corpuscular Hemoglobin 29.3 pg (28.0-33.3); Mean Corpuscular Volume 97.6 fL (83.0-100.0); Mean Platelet Volume 13.1 fL (9.4-12.4); Monocytes # 0.5 K/mcL (0.0-1.3); Monocytes % 13.9 %; Neutrophils # 1.8 K/mcL (1.6-8.9); Platelet Count 102 K/mcL (140-400); Red Cell Distribution Width 15.2 % (11.5-14.5); Segmented Neutrophils % 45.2 %
[2017-08-29 05:37] LABS: BUN/Creatinine Ratio 13 (6-26); Blood Urea Nitrogen 14 mg/dL (6-20); Calcium 8.6 mg/dL (8.6-10.3); Carbon Dioxide 24 mEq/L (23-29); Chloride 112 mEq/L (98-107); Glucose 78 mg/dL (70-105); Osmolality,Calculated 293 (280-300); Potassium 3.5 mEq/L (3.5-5.1); Sodium 142 mEq/L (136-145); eGFR For African Americans > 60 (> 60); eGFR For Non-African Americans 57 (> 60)
[2017-08-29] MEDS: 0.9 % Sodium Chloride 1,000 ML IVC SCH ×2 (06:10→13:22)
[2017-08-29] MEDS: *HR* Heparin 5,000 UNIT/ML VIAL SQ SCH ×2 (06:16→18:11)
[2017-08-29] MEDS ORDERED: Verapamil ER (24 HR) 120 MG TABLET.ER PO SCH (09:00)
--- NOTE | 2017-08-29 09:12 | Electrocardiograph Report ---
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
--- NOTE | 2017-08-29 10:00 | Neurology - Consult Note ---
<Pierre Hooker - Last Filed: 08/29/17 14:55> Date of Encounter: 08/29/17 Time of Encounter: 10:00 Assessment and Plan (1) Tremor due to disorder of central nervous system Current Visit: Yes Status: Acute 36-year-old female with known history of tardive dyskinesia likely secondary to long-term use of antipsychotic therapy presenting with progressively worsening tremors. She has recently been ill with nausea vomiting diarrhea and appears to be dehydrated with low blood pressure and likely dry. She appears anxious on examination and she demonstrates improvement in amplitude and frequency of tremors when she breaths deeply and relaxes. Clinical findings: She has dilated pupils L>R, diffuse tremors TSH 0.040 DDX: possibly secondary to dehydration resulting in increased amplitude and frequency of tremors. Dilated pupils, increased tremor activity may be secondary to medication side effect either from change in medications or dehydration and diminished clearance. TSH low and review of hx demonstrates she has never had a low TSH like the current. Plan: - primary team hydrating patient, Continue normal saline - T4, T3 for thyroid work up. - Review current medication list. History of Present Illness Chief complaint: worsening tremors HPI: Ms. Mendoza is a 36 year old female with PMH significant for bipolar disorder, history of seizure disorder, anxiety, chronic migraine who presented to the emergency department with worsening tremors. She states that since her medications were changed several weeks ago she feels that her tremors have progressively gotten worse more so on her upper extremities. The tremors have intensified to the point she has difficulty aching up objects including food or drinks and having difficulty feeding herself. She states that her home doses of Topamax, Seroquel were reduced. Several weeks ago and was prescribed Austedo 6 mg BID. She states that she was recently hospitalized for dehydration recently. The worsening tremors have been wearing on her and making her more anxious. Over the past week she has had worsening of lower extremity weakness, increased tremors and decreased ability to ambulate or walk. Now she states she cannot stand on her own two feet and has fallen resulting in knee injuries and left rib injury. She says that she missed her last appointment with Dr. Baltazar secondary to her hospitalization. She does have a history of seizure disorder but denies any known seizure activity recently. Of note over the last week she has had diarrhea, nausea and vomiting with resolution of her symptoms several days ago. Past Med Surg Social Fam HX - Past Medical History Medical history: arthritis, asthma, COPD, GERD, hypertension, migraine, osteoporosis, seizures, thyroid disease, syncope, other Psychiatric history: anxiety, bipolar, depression, prior suicide attempt, schizophrenia, previous psychiatric hospitalization, other - Past Surgical History Surgical History: orthopedic, other, sinus surgery, other - Social History Smoking Status: Never smoker Smokeless Tobacco Status: No Alcohol use: none Drug use: none - Family History Mother Daughter Family Member Ethnicity: Non- Mother Family Member Ethnicity: Non- Living Status: Still Living Hx Family Respiratory Disorders: Yes Hx Family Cancer: Yes Medications and Allergies Albuterol Sulfate [Albuterol Inhaler] 2 puff IH Q4H PRN 07/28/15 [History] Omeprazole [PriLOSEC] 20 mg PO DAILY 07/28/15 [History] Levothyroxine [Synthroid] 125 mcg PO QAM 11/30/15 [History] Escitalopram [Lexapro] 20 mg PO DAILY 10/03/16 [History] Gabapentin [Neurontin] 1,200 mg PO TID 10/03/16 [History] Verapamil ER (24 HR) [Calan SR] 120 mg PO DAILY 10/03/16 [History] Quetiapine Fumarate [Seroquel] 400 mg PO HS #28 tablet 10/07/16 [Rx] Amantadine [Symmetrel] 100 mg PO QID 07/09/17 [History] Mirabegron [Myrbetriq] 50 mg PO DAILY 07/09/17 [History] Pentosan Polysulfate Sodium [Elmiron] 100 mg PO TID 07/09/17 [History] Topiramate [Topamax] 200 mg PO TID 07/09/17 [History] clonazePAM [Klonopin] 2 mg PO BID PRN 07/09/17 [History] traZODone [TraZODone] 300 mg PO HS PRN 07/09/17 [History] Ferrous Sulfate 325 mg PO DAILY@0800 #30 tablet 07/17/17 [Rx] Loperamide [Imodium] 2 mg PO Q8HR PRN #30 capsule 07/17/17 [Rx] Melatonin 3 mg PO HS PRN tablet 07/17/17 [Rx] Multivitamin [One Daily Multivitamin] 1 each PO DAILY #30 tablet 07/17/17 [Rx] Cholecalciferol (D-3) [Vitamin D] 1,000 unit PO DAILY 08/28/17 [History] 3 Allergy/AdvReac Type Severity Reaction Status Date / Time aripiprazole [From Abilify] Allergy Difficulty Verified 06/28/17 16:26 Breathing aspirin Allergy Difficulty Verified 06/28/17 16:26 Breathing ibuprofen Allergy Difficulty Verified 06/28/17 16:26 Breathing latex Allergy Difficulty Verified 06/28/17 16:26 Breathing metronidazole [From Flagyl] Allergy Difficulty Verified 06/28/17 16:26 Breathing naproxen [From Aleve] Allergy Difficulty Verified 06/28/17 16:26 Breathing Sulfa (Sulfonamide Allergy Vomiting Verified 06/28/17 16:26 Antibiotics) All Systems: A 10-system review of systems was performed and is negative for pertinent findings except as documented above in the HPI. - Constitutional Constitutional ROS IM: fever(s), weakness, weight loss, no chills - Nose, Mouth, Throat Nose, mouth and throat: no change in voice, no dizziness, no facial pain, no sore throat - Cardiovascular Cardiovascular ROS IM: no chest pain, no chest pain at rest, no irregular heart rhythm, no leg edema - Respiratory Respiratory IM: pain on inspiration, no cough, no chest congestion - Gastrointestinal Gastrointestinal: bloating, no abdominal pain, no change in bowel habits, no loose stools - Musculoskeletal Musculoskeletal ROS IM: muscle weakness, other (worsening ability to walk) - Neurological Neurological ROS: abnormal gait, abnormal movements, lack of coordination, tremor(s) (Worsening), no confusion, no dizziness, no focal weakness Physical Examination - Vital Signs Vital Signs: Initial Vital Signs Temp Pulse Resp BP Pulse Ox 98.9 F 82 16 103/77 96 08/28/17 10:10 08/28/17 10:10 08/28/17 10:10 08/28/17 10:10 08/28/17 10:10 - Exam Exam: Gen: Alert, oriented 3, interactive, full-body diffuse tremors HEENT: Normocephalic, atraumatic, pupils: Left 8mm, right 6-7 mm, lateralized [place], vocal tremor, neck supple trachea midline no palpable lymphadenopathy Cardiac: Regular rate and rhythm positive S1-S2 no murmurs or gallops appreciated, chest symmetric correlating with restaurant effort mild tenderness to left ribs 9 and 1011. Respiratory: Clear to auscultation bilaterally Abdomen: Soft, nontender, positive bowel sounds Extremities: All 4 extremities demonstrate tremors, poor muscle tone, difficulty with coordination with active movements. All 4 studies have 3/5 muscle strength and deep tendon reflexes are difficult to evaluate in the setting of frequent tremoring, appears to be 2+ brachial and brachioradialis, 3 + patellar and Achilles. 4-3 beats clonus in bilateral foot dorsi flexion. Skin: Bilateral lower extremities demonstrate dry chapped skin. Overall volume status appears to be dry. - Constitutional General appearance: uncomfortable Results - Laboratory Findings CBC and BMP: 08/29/17 04:14 08/29/17 04:14 Abnormal lab findings: Abnormal lab results WBC 3.9 K/mcL (4.3-11.1) L 08/29/17 04:14 RBC 2.90 M/mcL (3.82-4.97) L 08/29/17 04:14 Hgb 8.5 g/dL (11.5-15.4) L 08/29/17 04:14 Hct 28.3 % (35.3-44.9) L 08/29/17 04:14 MCHC 30.0 g/dL (31.6-35.5) L 08/29/17 04:14 RDW 15.2 % (11.5-14.5) H 08/29/17 04:14 Plt Count 102 K/mcL (140-400) L 08/29/17 04:14 MPV 13.1 fL (9.4-12.4) H 08/29/17 04:14 Chloride 112 mEq/L (98-107) H 08/29/17 04:14 Est GFR (Non-Af Amer) 57 (> 60) L 08/29/17 04:14 Alkaline Phosphatase 153 Units/L (34-104) H 08/28/17 11:25 Serum Total Protein 6.2 g/dL (6.4-8.9) L 08/28/17 11:25 Albumin 3.3 g/dL (3.5-5.7) L 08/28/17 11:25 TSH 0.040 mcIU/mL (0.340-5.600) L 08/28/17 11:25 Ur Leukocyte Esterase Trace (Negative) H 08/28/17 12:38 Urine Microscopic RBC 3-5 per hpf (0-3) H 08/28/17 12:38 Ur Squamous Epith Cells Many per lpf (None-Few) H 08/28/17 12:38 Granular Casts Few per lpf (None Seen) H 08/28/17 12:38 Consult Discharge Plan - Plan Referrals: Pierre Duran MD [Primary Care Provider] - <Zelalem Loo I - Last Filed: 08/30/17 15:37> Date of Encounter: 08/29/17 History of Present Illness HPI: Ms. Mendoza is a 36 year old female All Systems: A 10-system review of systems was performed and is negative for pertinent findings except as documented above in the HPI. Physical Examination - Vital Signs Vital Signs: Initial Vital Signs Temp Pulse Resp BP Pulse Ox 98.9 F 82 16 103/77 96 08/28/17 10:10 08/28/17 10:10 08/28/17 10:10 08/28/17 10:10 08/28/17 10:10 Results - Laboratory Findings CBC and BMP: 08/30/17 05:31 08/30/17 05:31 Abnormal lab findings: Abnormal lab results WBC 3.9 K/mcL (4.3-11.1) L 08/29/17 04:14 RBC 2.90 M/mcL (3.82-4.97) L 08/29/17 04:14 Hgb 8.5 g/dL (11.5-15.4) L 08/29/17 04:14 Hct 28.3 % (35.3-44.9) L 08/29/17 04:14 MCHC 30.0 g/dL (31.6-35.5) L 08/29/17 04:14 RDW 15.2 % (11.5-14.5) H 08/29/17 04:14 Plt Count 102 K/mcL (140-400) L 08/29/17 04:14 MPV 13.1 fL (9.4-12.4) H 08/29/17 04:14 Chloride 112 mEq/L (98-107) H 08/29/17 04:14 Est GFR (Non-Af Amer) 57 (> 60) L 08/29/17 04:14 Alkaline Phosphatase 153 Units/L (34-104) H 08/28/17 11:25 Serum Total Protein 6.2 g/dL (6.4-8.9) L 08/28/17 11:25 Albumin 3.3 g/dL (3.5-5.7) L 08/28/17 11:25 TSH 0.040 mcIU/mL (0.340-5.600) L 08/28/17 11:25 Ur Leukocyte Esterase Trace (Negative) H 08/28/17 12:38 Urine Microscopic RBC 3-5 per hpf (0-3) H 08/28/17 12:38 Ur Squamous Epith Cells Many per lpf (None-Few) H 08/28/17 12:38 Granular Casts Few per lpf (None Seen) H 08/28/17 12:38 - Attending Attestation pt seen and examined agree with Resident Documentation, I examined this patient and my medical decision-making was reviewed with the Resident Physician, I agree with the documented findings, disposition and treatment plan as described except to the extent set forth below. Nadia Loo MD
[2017-08-29] MEDS: Multivit/Ca/Min/Fe/FA 1 TAB TABLET PO SCH (10:51)
[2017-08-29] MEDS: (Pentosan Polysulfate Sodium [Elmiron] 100 MG) PO SCH ×3 (10:51→21:17)
[2017-08-29] MEDS: Topiramate 100 MG TABLET PO SCH ×3 (10:51→20:56)
[2017-08-29] MEDS: Cholecalciferol (D-3) 1,000 UNIT TABLET PO SCH (10:51)
[2017-08-29] MEDS: (Mirabegron [Myrbetriq] 50 MG) PO SCH (10:52)
[2017-08-29] MEDS: Gabapentin 300 MG CAPSULE PO SCH ×3 (10:57→20:55)
--- NOTE | 2017-08-29 11:16 | Internal Med Progress Note ---
Date of Encounter: 08/29/17 Time of Encounter: 11:14 - Assessment and plan (1) Tremor Current Visit: Yes Status: Acute Assessment and plan: Known history since childhood. Unsure why is worsening, possibly related to acute illness and change in hydration status Continue supportive treatment with IVF Continue Amantadine Hold Seroquel until patient is better hydrated. Hold Austedo for now Neurology consulted, recommendations appreciated. (2) Acute kidney injury superimposed on chronic kidney disease Current Visit: Yes Status: Acute Assessment and plan: Secondary to dehydration. (3) Dehydration Current Visit: No Status: Resolved Assessment and plan: Continue iv fluid hydration (4) Essential hypertension Current Visit: No Status: Acute Assessment and plan: Resume verapamil (5) Bipolar depression Current Visit: No Status: Chronic (6) Former heavy cigarette smoker (20-39 per day) Current Visit: No Status: Chronic (7) History of seizures Current Visit: No Status: Chronic (8) Schizoaffective disorder, bipolar type Current Visit: No Status: Chronic (9) DVT prophylaxis Current Visit: No Status: Acute - Subjective Interval history: No acute events overnight. Patient states tremors still persisting. She denies fevers/chills, n/v, diarrhea constipation. - Constitutional Vitals: Temp Pulse Resp BP Pulse Ox 98.3 F 91 20 94/49 100 08/29/17 08:00 08/29/17 08:00 08/29/17 08:00 08/29/17 08:00 08/29/17 08:00 General appearance: Present: A&O X 3, answers questions appropriately - Head Head exam: Present: atraumatic, normocephalic - ENT ENT exam: Present: mucous membranes dry - Respiratory Respiratory exam: Present: CTAB. Absent: accessory muscle use, rales, rhonchi, wheezes - Cardiovascular Cardiovascular exam: Present: RRR, +S1, +S2. Absent: diastolic murmur, gallop, rubs, systolic murmur - Neurological Exam Neurological exam: Present: oriented X3, no focal deficits. Absent: facial droop Additional comments: Tremors of extremities and face at rest. - Psychiatric Psychiatric exam: Present: normal affect, normal mood - Skin Additional comments: excoriation of left knee Internal Medicine: Result - Labs CBC & Chem 7: 08/29/17 04:14 08/29/17 04:14 Labs: Short CBC 08/29/17 Range/Units 04:14 WBC 3.9 L (4.3-11.1) K/mcL Hgb 8.5 L (11.5-15.4) g/dL Hct 28.3 L (35.3-44.9) % Plt Count 102 L (140-400) K/mcL Neutrophils # 1.8 (1.6-8.9) K/mcL BMP 08/29/17 04:14 Sodium 142 Potassium 3.5 Chloride 112 H Carbon Dioxide 24 BUN 14 Creatinine 1.08 Glucose 78 Calcium 8.6 - Impressions Impressions Knee X-Ray 08/28/17 16:34 IMPRESSION: Negative examinations of the bilateral knees with no acute abnormality. D/ / Yesi Jennings MD / Yesi Jennings MD Interpreting Provider: Yesi Jennings MD Consult Discharge Plan - Plan Referrals: Pierre Duran MD [Primary Care Provider] -
[2017-08-29] MEDS: *HR* HYDROcodone/Acet 5/325 mg TABLET PO PRN (18:10)
[2017-08-30] MEDS: TRIFLURIDINE OP SCH ×7 (00:17→22:49)
[2017-08-30] MEDS: Ciprofloxacin OPTH Soln 2.5 ML BOTTLE BOTH EYES SCH ×5 (03:30→20:59)
[2017-08-30] MEDS: *HR* Heparin 5,000 UNIT/ML VIAL SQ SCH ×2 (05:11→17:15)
[2017-08-30 06:05] LABS: Basophils % 0.9 %
[2017-08-30 06:07] LABS: Eosinophils # 0.2 K/mcL (0.0-0.6); Hematocrit 26.7 % (35.3-44.9); Immature Granulocytes % 0.5 % (0-4); Immature Platelets 5.6 % (1.1-6.1); Lymphocytes # 1.5 K/mcL (0.6-4.6); Mean Corpuscular Hemoglobin 29.3 pg (28.0-33.3); Mean Corpuscular Volume 97.8 fL (83.0-100.0); Mean Platelet Volume 12.7 fL (9.4-12.4); Monocytes # 0.7 K/mcL (0.0-1.3); Monocytes % 16.8 %; Neutrophils # 1.8 K/mcL (1.6-8.9); Nucleated Red Blood Cells 0.9 /100 WBC (0); Red Blood Count 2.73 M/mcL (3.82-4.97); Red Cell Distribution Width 15.4 % (11.5-14.5); Segmented Neutrophils % 42.8 %
[2017-08-30 06:19] LABS: BUN/Creatinine Ratio 14 (6-26); Blood Urea Nitrogen 13 mg/dL (6-20); Calcium 8.8 mg/dL (8.6-10.3); Carbon Dioxide 23 mEq/L (23-29); Chloride 114 mEq/L (98-107); Glucose 73 mg/dL (70-105); Osmolality,Calculated 293 (280-300); Potassium 3.4 mEq/L (3.5-5.1); Sodium 142 mEq/L (136-145); eGFR For African Americans > 60 (> 60); eGFR For Non-African Americans > 60 (> 60)
[2017-08-30 06:44] LABS: Platelet Count 87 K/mcL (140-400)
[2017-08-30 06:45] LABS: Platelet Estimate Decreased (Normal)
[2017-08-30] MEDS: (Mirabegron [Myrbetriq] 50 MG) PO SCH (09:38)
[2017-08-30] MEDS: (Pentosan Polysulfate Sodium [Elmiron] 100 MG) PO SCH ×3 (09:39→21:01)
[2017-08-30] MEDS: Gabapentin 300 MG CAPSULE PO SCH ×3 (09:45→20:56)
[2017-08-30] MEDS: 0.9 % Sodium Chloride 1,000 ML IVC SCH ×2 (09:45→17:17)
[2017-08-30] MEDS: Cholecalciferol (D-3) 1,000 UNIT TABLET PO SCH (09:45)
[2017-08-30] MEDS: Multivit/Ca/Min/Fe/FA 1 TAB TABLET PO SCH (09:45)
[2017-08-30] MEDS: Topiramate 100 MG TABLET PO SCH ×3 (09:45→20:57)
--- NOTE | 2017-08-30 10:29 | Neurology Progress Note ---
<Pierre Hooker - Last Filed: 08/30/17 10:26> Date of Encounter: 08/30/17 Time of Encounter: 10:27 Assessment and Plan (1) Tremor due to disorder of central nervous system Current Visit: Yes Status: Acute 36-year-old female with known history of tardive dyskinesia likely secondary to long-term use of antipsychotic therapy presenting with progressively worsening tremors. She has recently been ill with nausea vomiting diarrhea and appears to be dehydrated with low blood pressure and likely dry. She appears anxious on examination and she demonstrates improvement in amplitude and frequency of tremors when she breaths deeply and relaxes. Clinical findings: She has dilated pupils L>R, diffuse tremors DDX: possibly secondary to dehydration resulting in increased amplitude and frequency of tremors. Dilated pupils, increased tremor activity may be secondary to medication side effect either from change in medications or dehydration and diminished clearance. TSH low and review of hx demonstrates she has never had a low TSH like the current. Plan: - T4, T3 for thyroid work up. - Review current medication list. Continue Austedo 6 mg BID in the outpatient setting. Subjective Principal diagnosis: worsening tremors Interval history: Miss Mendoza 36-year-old female seen in the patient bedside this morning. She is alert awake interactive, continues to have constant tremors mildly improved compared to yesterday. She feels a very slightly improved overall. She is in good spirits no new events or changes overnight. Objective - Constitutional Vitals: Temp Pulse Resp BP Pulse Ox 98.9 F 84 14 89/50 93 08/30/17 07:49 08/30/17 07:49 08/30/17 07:49 08/30/17 07:49 08/30/17 07:49 Exam: Gen: Alert, oriented 3, interactive, full-body diffuse tremors, slightly improved compared to yesterday HEENT: Normocephalic, atraumatic, pupils: Left 8mm, right 6-7 mm, lateral nystagnes, vocal tremor, neck supple trachea midline no palpable lymphadenopathy Cardiac: Regular rate and rhythm positive S1-S2 no murmurs or gallops appreciated, chest symmetric correlating with restaurant effort mild tenderness to left ribs 9 and 10. Respiratory: Clear to auscultation bilaterally Abdomen: Soft, nontender, positive bowel sounds Extremities: All 4 extremities demonstrate tremors, poor muscle tone, difficulty with coordination with active movements. All 4 studies have 3/5 muscle strength and deep tendon reflexes are difficult to evaluate in the setting of frequent tremoring, appears to be 2+ brachial and brachioradialis, 2 + patellar and Achilles. 4-3 beats clonus in bilateral foot dorsi flexion. Skin: Bilateral lower extremities demonstrate dry chapped skin. Results - Laboratory Findings CBC and BMP: 08/30/17 05:31 08/30/17 05:31 Abnormal lab findings: Abnormal lab results RBC 2.73 M/mcL (3.82-4.97) L 08/30/17 05:31 Hgb 8.0 g/dL (11.5-15.4) L 08/30/17 05:31 Hct 26.7 % (35.3-44.9) L 08/30/17 05:31 MCHC 30.0 g/dL (31.6-35.5) L 08/30/17 05:31 RDW 15.4 % (11.5-14.5) H 08/30/17 05:31 Plt Count 87 K/mcL (140-400) L 08/30/17 05:31 MPV 12.7 fL (9.4-12.4) H 08/30/17 05:31 Nucleated RBCs/100 WBC 0.9 /100 WBC (0) H 08/30/17 05:31 Platelet Estimate Decreased (Normal) L 08/30/17 05:31 Potassium 3.4 mEq/L (3.5-5.1) L 08/30/17 05:31 Chloride 114 mEq/L (98-107) H 08/30/17 05:31 Alkaline Phosphatase 153 Units/L (34-104) H 08/28/17 11:25 Serum Total Protein 6.2 g/dL (6.4-8.9) L 08/28/17 11:25 Albumin 3.3 g/dL (3.5-5.7) L 08/28/17 11:25 TSH 0.040 mcIU/mL (0.340-5.600) L 08/28/17 11:25 Ur Leukocyte Esterase Trace (Negative) H 08/28/17 12:38 Urine Microscopic RBC 3-5 per hpf (0-3) H 08/28/17 12:38 Ur Squamous Epith Cells Many per lpf (None-Few) H 08/28/17 12:38 Granular Casts Few per lpf (None Seen) H 08/28/17 12:38 Consult Discharge Plan - Plan Referrals: Pierre Duran MD [Primary Care Provider] - <Zelalem Smith I - Last Filed: 08/30/17 15:39> Date of Encounter: 08/30/17 Assessment and Plan (1) Tremor due to disorder of central nervous system Current Visit: Yes Status: Acute I examined this patient and my medical decision-making was reviewed with the Resident Physician, I agree with the documented findings, disposition and treatment plan as described except to the extent set forth below. start AUSTEDO once a day for one week after that twice a day as RX by Dr Delaney Smith MD Objective - Constitutional Vitals: Temp Pulse Resp BP Pulse Ox 98.8 F 69 18 117/53 95 08/30/17 15:00 08/30/17 15:00 08/30/17 15:00 08/30/17 15:00 08/30/17 15:00 Results - Laboratory Findings CBC and BMP: 08/30/17 05:31 08/30/17 05:31 Abnormal lab findings: Abnormal lab results RBC 2.73 M/mcL (3.82-4.97) L 08/30/17 05:31 Hgb 8.0 g/dL (11.5-15.4) L 08/30/17 05:31 Hct 26.7 % (35.3-44.9) L 08/30/17 05:31 MCHC 30.0 g/dL (31.6-35.5) L 08/30/17 05:31 RDW 15.4 % (11.5-14.5) H 08/30/17 05:31 Plt Count 87 K/mcL (140-400) L 08/30/17 05:31 MPV 12.7 fL (9.4-12.4) H 08/30/17 05:31 Nucleated RBCs/100 WBC 0.9 /100 WBC (0) H 08/30/17 05:31 Platelet Estimate Decreased (Normal) L 08/30/17 05:31 Potassium 3.4 mEq/L (3.5-5.1) L 02/14/18 05:31 Chloride 114 mEq/L (98-107) H 08/30/17 05:31 Alkaline Phosphatase 153 Units/L (34-104) H 08/28/17 11:25 Serum Total Protein 6.2 g/dL (6.4-8.9) L 08/28/17 11:25 Albumin 3.3 g/dL (3.5-5.7) L 08/28/17 11:25 TSH 0.040 mcIU/mL (0.340-5.600) L 08/28/17 11:25 Ur Leukocyte Esterase Trace (Negative) H 08/28/17 12:38 Urine Microscopic RBC 3-5 per hpf (0-3) H 08/28/17 12:38 Ur Squamous Epith Cells Many per lpf (None-Few) H 08/28/17 12:38 Granular Casts Few per lpf (None Seen) H 08/28/17 12:38
[2017-08-30] MEDS: *HR* HYDROcodone/Acet 5/325 mg TABLET PO PRN ×2 (12:28→20:56)
[2017-08-30] MEDS ORDERED: clonazePAM 0.5 MG TABLET PO PRN (13:00)
[2017-08-30] MEDS: DEUTETRABENAZINE 6 MG PO SCH (21:00)
--- NOTE | 2017-08-30 22:10 | Internal Med Progress Note ---
Date of Encounter: 08/31/17 Time of Encounter: 11:10 - Assessment and plan (1) Tremor Current Visit: Yes Status: Acute Assessment and plan: Known history since childhood. Unsure why is worsening, possibly related to acute illness and change in hydration status Continue supportive treatment with IVF Continue Amantadine Hold Seroquel until patient is better hydrated. Hold Austedo for now Neurology consulted, recommendations appreciated. (2) Acute kidney injury superimposed on chronic kidney disease Current Visit: Yes Status: Acute Assessment and plan: Secondary to dehydration. (3) Dehydration Current Visit: No Status: Resolved Assessment and plan: Continue iv fluid hydration (4) Essential hypertension Current Visit: No Status: Acute Assessment and plan: Resume verapamil (5) Bipolar depression Current Visit: No Status: Chronic (6) Former heavy cigarette smoker (20-39 per day) Current Visit: No Status: Chronic (7) History of seizures Current Visit: No Status: Chronic (8) Schizoaffective disorder, bipolar type Current Visit: No Status: Chronic (9) DVT prophylaxis Current Visit: No Status: Acute - Subjective Interval history: No acute events overnight. Patient states tremors still persisting. She denies fevers/chills, n/v, diarrhea constipation. - Constitutional Vitals: Temp Pulse Resp BP Pulse Ox 99.1 F 72 16 100/60 96 08/30/17 20:58 08/30/17 20:58 08/30/17 20:58 08/30/17 20:58 08/30/17 20:58 General appearance: Present: A&O X 3, answers questions appropriately Exam: - Head Head exam: Present: atraumatic, normocephalic - ENT ENT exam: Present: mucous membranes dry - Respiratory Respiratory exam: Present: CTAB. Absent: accessory muscle use, rales, rhonchi, wheezes - Cardiovascular Cardiovascular exam: Present: RRR, +S1, +S2. Absent: diastolic murmur, gallop, rubs, systolic murmur - Neurological Exam Neurological exam: Present: oriented X3, no focal deficits. Absent: facial droop Additional comments: Tremors of extremities and face at rest. - Psychiatric Psychiatric exam: Present: normal affect, normal mood - Skin Additional comments: excoriation of left knee Internal Medicine: Result - Labs CBC & Chem 7: 08/31/17 05:07 08/31/17 05:07 Labs: Short CBC 08/30/17 Range/Units 05:31 WBC 4.3 (4.3-11.1) K/mcL Hgb 8.0 L (11.5-15.4) g/dL Hct 26.7 L (35.3-44.9) % Plt Count 87 L (140-400) K/mcL Neutrophils # 1.8 (1.6-8.9) K/mcL BMP 08/30/17 05:31 Sodium 142 Potassium 3.4 L Chloride 114 H Carbon Dioxide 23 BUN 13 Creatinine 0.93 Glucose 73 Calcium 8.8 Cardiac Enzymes 08/29/17 Range/Units 23:06 Troponin I < 0.03 (< 0.04) ng/mL Consult Discharge Plan - Plan Referrals: Pierre Duran MD [Primary Care Provider] -
[2017-08-31 05:54] LABS: Eosinophils % 3.9 %; Hemoglobin 8.2 g/dL (11.5-15.4); Immature Granulocytes % 0.3 % (0-4)
[2017-08-31 05:56] LABS: Basophils % 0.8 %; Eosinophils # 0.1 K/mcL (0.0-0.6); Hematocrit 27.3 % (35.3-44.9); Immature Platelets 5.2 % (1.1-6.1); Lymphocytes # 1.5 K/mcL (0.6-4.6); Lymphocytes % 42.1 %; Mean Corpuscular Hemoglobin 29.7 pg (28.0-33.3); Mean Corpuscular Volume 98.9 fL (83.0-100.0); Mean Platelet Volume 12.6 fL (9.4-12.4); Monocytes # 0.6 K/mcL (0.0-1.3); Monocytes % 16.2 %; Neutrophils # 1.3 K/mcL (1.6-8.9); Red Blood Count 2.76 M/mcL (3.82-4.97); Red Cell Distribution Width 15.6 % (11.5-14.5); Segmented Neutrophils % 36.7 %
[2017-08-31 05:58] LABS: Platelet Count 86 K/mcL (140-400)
[2017-08-31] MEDS: Ciprofloxacin OPTH Soln 2.5 ML BOTTLE BOTH EYES SCH ×3 (06:16→12:27)
[2017-08-31] MEDS: *HR* Heparin 5,000 UNIT/ML VIAL SQ SCH (06:26)
[2017-08-31] MEDS: TRIFLURIDINE OP SCH ×5 (06:27→14:13)
[2017-08-31 06:30] LABS: BUN/Creatinine Ratio 15 (6-26); Blood Urea Nitrogen 14 mg/dL (6-20); Calcium 8.8 mg/dL (8.6-10.3); Carbon Dioxide 20 mEq/L (23-29); Chloride 116 mEq/L (98-107); Glucose 73 mg/dL (70-105); Osmolality,Calculated 293 (280-300); Sodium 142 mEq/L (136-145); eGFR For African Americans > 60 (> 60); eGFR For Non-African Americans > 60 (> 60)
[2017-08-31] MEDS: Multivit/Ca/Min/Fe/FA 1 TAB TABLET PO SCH (08:38)
[2017-08-31] MEDS: Cholecalciferol (D-3) 1,000 UNIT TABLET PO SCH (08:38)
[2017-08-31] MEDS: Gabapentin 300 MG CAPSULE PO SCH ×2 (08:38→14:13)
[2017-08-31] MEDS: Topiramate 100 MG TABLET PO SCH ×2 (08:38→14:13)
[2017-08-31] MEDS: (Mirabegron [Myrbetriq] 50 MG) PO SCH (08:39)
[2017-08-31] MEDS: DEUTETRABENAZINE 6 MG PO SCH (08:39)
[2017-08-31] MEDS: (Pentosan Polysulfate Sodium [Elmiron] 100 MG) PO SCH ×2 (08:40→14:15)
--- NOTE | 2017-08-31 09:01 | Neurology Progress Note ---
Date of Encounter: 08/31/17 Time of Encounter: 07:30 Assessment and Plan (1) Neuroleptic-induced tardive dyskinesia Current Visit: Yes Status: Acute This patient though predominantly has features of tardive dyskinesia for quite some time along with these increasing tremors in both upper extremities mostly action related. Likely exacerbated by UTI and dehydration which is true for all kind of the tremors. No new focal findings on examination. Patient to continue on her home medication as she does have an history of his schizoaffective as well as significant behavioral problems in the past. She had been evaluated as an outpatient by Dr. Baltazar and recently was started on AUSTEDO, She was on the tapering dose but apparently has dehydration and generalized weakness and fatigue now she is doing better and will be transferred to a jail. I suggested that she should be restarted on the medication 6.5 mg daily and slowly gradually increase the dose after a few weeks to twice a as initially recommended. She will be following up with Dr. Baltazar as an outpatient in 3-4 weeks ( pt can use her home medication as likely not available at pharmacy as its speciality meds (2) Tremor due to disorder of central nervous system Current Visit: Yes Status: Acute Subjective Principal diagnosis: worsening tremors Interval history: Overall patient is stable but she continued to have these tremors predominantly features of tardive dyskinesia she had it for quite some time denies any other new symptoms no focal motor weakness Objective - Constitutional Vitals: Temp Pulse Resp BP Pulse Ox 98.5 F 88 16 98/61 95 08/31/17 07:00 08/31/17 07:00 08/31/17 07:00 08/31/17 07:00 08/31/17 07:00 - Neurological Exam Motor Examination: Present: grossly full strength in all extremities Sensation intact: Present: intact Reflexes: Biceps: 1+, Triceps: 1+, Brachioradialis: 1+, Patella: 1+, Achilles: 1 + Mental Status Examination: Present: awake, alert, oriented to person, oriented to place, oriented to time, follows commands appropriately, answers questions appropriately Cranial nerve examination: Present: PERRL, EOMI, visual pimentel intact, no facial asymmetry is present (Patient has significant orofacial dyskinesias as well as extrapyramidal symptoms in her whole body predominantly action related tremor but it is same time she also has semi-choreiform movement of her whole body) Results - Laboratory Findings CBC and BMP: 08/31/17 05:07 08/31/17 05:07 Abnormal lab findings: Abnormal lab results WBC 3.6 K/mcL (4.3-11.1) L 08/31/17 05:07 RBC 2.76 M/mcL (3.82-4.97) L 08/31/17 05:07 Hgb 8.2 g/dL (11.5-15.4) L 08/31/17 05:07 Hct 27.3 % (35.3-44.9) L 08/31/17 05:07 MCHC 30.0 g/dL (31.6-35.5) L 08/31/17 05:07 RDW 15.6 % (11.5-14.5) H 08/31/17 05:07 Plt Count 86 K/mcL (140-400) L 08/31/17 05:07 MPV 12.6 fL (9.4-12.4) H 08/31/17 05:07 Neutrophils # 1.3 K/mcL (1.6-8.9) L 08/31/17 05:07 Nucleated RBCs/100 WBC 0.9 /100 WBC (0) H 08/30/17 05:31 Platelet Estimate Decreased (Normal) L 08/30/17 05:31 Chloride 116 mEq/L (98-107) H 08/31/17 05:07 Carbon Dioxide 20 mEq/L (23-29) L 08/31/17 05:07 Alkaline Phosphatase 153 Units/L (34-104) H 08/28/17 11:25 Serum Total Protein 6.2 g/dL (6.4-8.9) L 08/28/17 11:25 Albumin 3.3 g/dL (3.5-5.7) L 08/28/17 11:25 TSH 0.040 mcIU/mL (0.340-5.600) L 08/28/17 11:25 Ur Leukocyte Esterase Trace (Negative) H 08/28/17 12:38 Urine Microscopic RBC 3-5 per hpf (0-3) H 08/28/17 12:38 Ur Squamous Epith Cells Many per lpf (None-Few) H 08/28/17 12:38 Granular Casts Few per lpf (None Seen) H 08/28/17 12:38 Consult Discharge Plan - Plan Referrals: Pierre Duran MD [Primary Care Provider] -
[2017-08-31] MEDS: 0.9 % Sodium Chloride 1,000 ML IVC SCH (09:47)
[2017-08-31 11:10] VITALS: BP 103/52
--- NOTE | 2017-08-31 11:21 | Discharge Summary ---
Date of Encounter: 08/31/17 Time of Encounter: 11:19 - Discharge Diagnosis (1) Tremor Priority: Primary Status: Acute (2) Acute kidney injury superimposed on chronic kidney disease Priority: Secondary Status: Acute (3) Dehydration Priority: Secondary Status: Resolved (4) Essential hypertension Priority: Secondary Status: Acute (5) Bipolar depression Priority: Secondary Status: Chronic (6) Former heavy cigarette smoker (20-39 per day) Priority: Secondary Status: Chronic (7) History of seizures Priority: Secondary Status: Chronic (8) Schizoaffective disorder, bipolar type Priority: Secondary Status: Chronic (9) DVT prophylaxis Priority: Secondary Status: Acute - Discharge Medications Prescriptions: clonazePAM [Klonopin] 2 mg PO BID PRN 3 Days #6 tablet PRN Reason: anxiety Home Medications: Albuterol Sulfate [Albuterol Inhaler] 2 puff IH Q4H PRN 07/28/15 [History] Omeprazole [PriLOSEC] 20 mg PO DAILY 07/28/15 [History] Levothyroxine [Synthroid] 125 mcg PO QAM 11/30/15 [History] Escitalopram [Lexapro] 20 mg PO DAILY 10/03/16 [History] Gabapentin [Neurontin] 1,200 mg PO TID 10/03/16 [History] Verapamil ER (24 HR) [Calan SR] 120 mg PO DAILY 10/03/16 [History] Quetiapine Fumarate [Seroquel] 400 mg PO HS #28 tablet 10/07/16 [Rx] Amantadine [Symmetrel] 100 mg PO QID 07/09/17 [History] Mirabegron [Myrbetriq] 50 mg PO DAILY 07/09/17 [History] Pentosan Polysulfate Sodium [Elmiron] 100 mg PO TID 07/09/17 [History] Topiramate [Topamax] 200 mg PO TID 07/09/17 [History] clonazePAM [Klonopin] 2 mg PO BID PRN 07/09/17 [History] traZODone [TraZODone] 300 mg PO HS PRN 07/09/17 [History] Ferrous Sulfate 325 mg PO DAILY@0800 #30 tablet 07/17/17 [Rx] Loperamide [Imodium] 2 mg PO Q8HR PRN #30 capsule 07/17/17 [Rx] Melatonin 3 mg PO HS PRN tablet 07/17/17 [Rx] Multivitamin [One Daily Multivitamin] 1 each PO DAILY #30 tablet 07/17/17 [Rx] Cholecalciferol (D-3) [Vitamin D] 1,000 unit PO DAILY 08/28/17 [History] Acetaminophen [Tylenol] 650 mg PO Q6HR PRN tablet 08/31/17 [Rx] Ciprofloxacin OPTH Soln [Ciloxan OPTH Soln] 2 drop BOTH EYES Q4HR bottle [Rx] Deutetrabenazine [Austedo] 6 mg PO AD #36 tablet 08/31/17 [Rx] Patient Taking Own Medication 0 each OP Q2HWA each 08/31/17 [Rx] Patient Taking Own Medication 0 each PO BID each 08/31/17 [Rx] clonazePAM [Klonopin] 2 mg PO BID PRN 3 Days #6 tablet 08/31/17 [Rx] Allergies/Adverse Reactions: 3 Allergy/AdvReac Type Severity Reaction Status Date / Time aripiprazole [From Abilify] Allergy Difficulty Verified 06/28/17 16:26 Breathing aspirin Allergy Difficulty Verified 06/28/17 16:26 Breathing ibuprofen Allergy Difficulty Verified 06/28/17 16:26 Breathing latex Allergy Difficulty Verified 06/28/17 16:26 Breathing metronidazole [From Flagyl] Allergy Difficulty Verified 06/28/17 16:26 Breathing naproxen [From Aleve] Allergy Difficulty Verified 06/28/17 16:26 Breathing Sulfa (Sulfonamide Allergy Vomiting Verified 06/28/17 16:26 Antibiotics) Procedures/tests Complete & Pending: Procedures Performed prior 72 hours Category Date Time Status EKG [ECG 12 lead ECG] [ECG] Routine Y 08/30/17 11:39 Stop Req Date of admission: 08/28/17 16:24 Primary care physician: Pierre Duran MD Discharging clinician: Savita Salvador - Patient Status Disposition: Transfer SNF Condition: Good Functional capacity at discharge: bed bound Overall status at discharge: patient is progressing back to baseline - Discharge Instructions Follow Up With: Pierre Duran MD [Primary Care Provider] - - Diet and Activity Activity: increase activity as tolerated Diet: advance to your usual diet Hospital course: 36 year old female with known history of tremors since childhood, debility, anemia, hypertension, chronic kidney disease, schizoaffective disorder, former smoker presented today with family for worsening tremors for 2 weeks. Patient also having diarrhea which has resolved 4 days ago, vomiting, low grade fevers. No sick contacts. Patient was seen in Neurology office for tremors two weeks ago and was prescribed Austedo 6 mg BID. Patient has been taking once daily to initiate therapy. Patient fell earlier this morning her brother was trying to help put her in car to take her to hospital. She fell on her left rib region and both knees which are now painful. X-ray in ED negative for rib fracture. Did note gaseous distention of visualized intestinal loops possibly due to ileus. Knee pain is rated 2/10 both knees at rest but significantly worsens if someone moves or bumps in to her. Patient was started on IV fluids. Renal function improved with IV fluids. Neurology was consulted for tremors. These worsening tremors likely from dehydration of acute illness. She improved. She was instructed to restart Austedo gradually. Patient discharged to SNF in stable condition. - Time Spent with Patient Total time spent providing and/or coordinating discharge services: - Constitutional Vitals: Temp Pulse Resp BP Pulse Ox 99.8 F H 88 16 103/52 95 08/31/17 11:09 08/31/17 11:09 08/31/17 11:09 08/31/17 11:09 08/31/17 11:09 General appearance: Present: A&O X 3, answers questions appropriately Exam: - Head Head exam: Present: atraumatic, normocephalic - ENT ENT exam: Present: mucous membranes dry - Respiratory Respiratory exam: Present: CTAB. Absent: accessory muscle use, rales, rhonchi, wheezes - Cardiovascular Cardiovascular exam: Present: RRR, +S1, +S2. Absent: diastolic murmur, gallop, rubs, systolic murmur - Neurological Exam Neurological exam: Present: oriented X3, no focal deficits. Absent: facial droop Additional comments: Tremors of extremities and face at rest. - Psychiatric Psychiatric exam: Present: normal affect, normal mood - Skin Additional comments: excoriation of left knee
--- NOTE | 2017-08-31 11:37 | Physician Discharge Referral ---
ExtendedCare Referral Info Transfer To: SNF Institutional Level of Care: Skilled - Diagnosis (1) Tremor Priority: Primary Status: Acute (2) Acute kidney injury superimposed on chronic kidney disease Priority: Secondary Status: Resolved (3) Dehydration Priority: Secondary Status: Resolved (4) Essential hypertension Priority: Secondary Status: Acute (5) Bipolar depression Priority: Secondary Status: Chronic (6) Former heavy cigarette smoker (20-39 per day) Priority: Secondary Status: Chronic (7) History of seizures Priority: Secondary Status: Chronic (8) Schizoaffective disorder, bipolar type Priority: Secondary Status: Chronic (9) DVT prophylaxis Priority: Secondary Status: Acute - Transfer Medications Prescriptions: clonazePAM [Klonopin] 2 mg PO BID PRN 3 Days #6 tablet PRN Reason: anxiety Deutetrabenazine [Austedo] 6 mg PO AD #36 tablet Home Medications: Albuterol Sulfate [Albuterol Inhaler] 2 puff IH Q4H PRN 07/28/15 [History] Omeprazole [PriLOSEC] 20 mg PO DAILY 07/28/15 [History] Levothyroxine [Synthroid] 125 mcg PO QAM 11/30/15 [History] Escitalopram [Lexapro] 20 mg PO DAILY 10/03/16 [History] Gabapentin [Neurontin] 1,200 mg PO TID 10/03/16 [History] Verapamil ER (24 HR) [Calan SR] 120 mg PO DAILY 10/03/16 [History] Quetiapine Fumarate [Seroquel] 400 mg PO HS #28 tablet 10/07/16 [Rx] Amantadine [Symmetrel] 100 mg PO QID 07/09/17 [History] Mirabegron [Myrbetriq] 50 mg PO DAILY 07/09/17 [History] Pentosan Polysulfate Sodium [Elmiron] 100 mg PO TID 07/09/17 [History] Topiramate [Topamax] 200 mg PO TID 07/09/17 [History] clonazePAM [Klonopin] 2 mg PO BID PRN 07/09/17 [History] traZODone [TraZODone] 300 mg PO HS PRN 07/09/17 [History] Ferrous Sulfate 325 mg PO DAILY@0800 #30 tablet 07/17/17 [Rx] Loperamide [Imodium] 2 mg PO Q8HR PRN #30 capsule 07/17/17 [Rx] Melatonin 3 mg PO HS PRN tablet 07/17/17 [Rx] Multivitamin [One Daily Multivitamin] 1 each PO DAILY #30 tablet 07/17/17 [Rx] Cholecalciferol (D-3) [Vitamin D] 1,000 unit PO DAILY 08/28/17 [History] Acetaminophen [Tylenol] 650 mg PO Q6HR PRN tablet 08/31/17 [Rx] Ciprofloxacin OPTH Soln [Ciloxan OPTH Soln] 2 drop BOTH EYES Q4HR bottle [Rx] Deutetrabenazine [Austedo] 6 mg PO AD #36 tablet 08/31/17 [Rx] Patient Taking Own Medication 0 each OP Q2HWA each 08/31/17 [Rx] Patient Taking Own Medication 0 each PO BID each 08/31/17 [Rx] clonazePAM [Klonopin] 2 mg PO BID PRN 3 Days #6 tablet 08/31/17 [Rx] Allergies/Adverse Reactions: 3 Allergy/AdvReac Type Severity Reaction Status Date / Time aripiprazole [From Abilify] Allergy Difficulty Verified 06/28/17 16:26 Breathing aspirin Allergy Difficulty Verified 06/28/17 16:26 Breathing ibuprofen Allergy Difficulty Verified 06/28/17 16:26 Breathing latex Allergy Difficulty Verified 06/28/17 16:26 Breathing metronidazole [From Flagyl] Allergy Difficulty Verified 06/28/17 16:26 Breathing naproxen [From Aleve] Allergy Difficulty Verified 06/28/17 16:26 Breathing Sulfa (Sulfonamide Allergy Vomiting Verified 06/28/17 16:26 Antibiotics) - Respiratory Orders Smoking Cessation: Smoking cessation has been advised. For more information, call the [place] Tobacco Quit Line at 6-689-PJLB-NOW. - Ancillary Orders May use pressure relief devices daily prn, May go on MEAGAN w/family/respon constitution party w /meds at nurse discretion PRN - Advance Directives Code Status: Full Code - Rehabiliation Orders Rehab Potential: Fair Rehab Orders: Evaluation for Physical Therapy, Evaluation for Occupational Therapy - Treatments Skin tear care topically daily PRN per policy, May check for fecal impaction rectally daily PRN, Fleet enema rectally every other day PRN cleansing purposes - Diet Orders No Added Salt (KEELY) CERTIFICATION: I certify that the transfer of the above named patient to an Extended Care Facility is necessary for the continuing treatment of the diagnosis listed. The above information is true and accurate reflection of patient's current condition. Confidential - Redisclosure prohibited without a patient's written consent.
--- NOTE | 2017-08-31 13:34 | Neurology Progress Note ---
<Pierre Hooker - Last Filed: 08/31/17 15:35> Date of Encounter: 08/31/17 Time of Encounter: 07:55 Assessment and Plan (1) Tremor due to disorder of central nervous system Status: Acute 36-year-old female with known history of tardive dyskinesia likely secondary to long-term use of antipsychotic therapy presenting with progressively worsening tremors. She has recently been ill with nausea vomiting diarrhea and appears to be dehydrated with low blood pressure and likely dry. She appears anxious on examination and she demonstrates improvement in amplitude and frequency of tremors when she breaths deeply and relaxes. Clinical findings: She has dilated pupils L>R, diffuse tremors possible exacerbation of tremor activity in the setting of UTI and dehydration. Tremor is improved compared to admission. Patient will continue her current medications, maintain hydration and follow-up in the outpatient setting. Plan: - She will be following up with Dr. Baltazar as an outpatient in 3-4 weeks Subjective Principal diagnosis: worsening tremors Interval history: Miss Mendoza 36-year-old female seen in the patient bedside this morning. She is alert awake interactive, continues to have constant tremors without significant improvement compared to yesterday. She feels well this morning, tremors improved, awaiting potential discharge today understands follow-up with her primary neurologist. Objective - Constitutional Vitals: Temp Pulse Resp BP Pulse Ox 99.8 F H 88 16 103/52 95 08/31/17 11:09 08/31/17 11:09 08/31/17 11:09 08/31/17 11:09 08/31/17 11:09 Exam: Gen: Alert, oriented 3, interactive, full-body diffuse tremors HEENT: Normocephalic, atraumatic, pupils: Left 8mm, right 6-7 mm, lateral nystagnes, vocal tremor, neck supple trachea midline no palpable lymphadenopathy Cardiac: Regular rate and rhythm positive S1-S2 no murmurs or gallops appreciated, chest symmetric correlating with restaurant effort mild tenderness to left ribs 9 and 10. Respiratory: Clear to auscultation bilaterally Abdomen: Soft, nontender, positive bowel sounds Extremities: All 4 extremities demonstrate tremors, poor muscle tone, difficulty with coordination with active movements. All 4 extremities have 3/5 muscle strength and deep tendon reflexes are difficult to evaluate in the setting of frequent tremoring, appears to be 1+ brachial and brachioradialis, 1 + patellar and Achilles. 4-3 beats clonus in bilateral foot dorsi flexion. - Neurological Exam Sensation intact: Present: intact Mental Status Examination: Present: awake, alert, oriented to person, oriented to place, oriented to time, follows commands appropriately, answers questions appropriately Cranial nerve examination: Present: PERRL, EOMI, visual pimentel intact Results - Laboratory Findings CBC and BMP: 08/31/17 05:07 08/31/17 05:07 Abnormal lab findings: Abnormal lab results WBC 3.6 K/mcL (4.3-11.1) L 08/31/17 05:07 RBC 2.76 M/mcL (3.82-4.97) L 08/31/17 05:07 Hgb 8.2 g/dL (11.5-15.4) L 08/31/17 05:07 Hct 27.3 % (35.3-44.9) L 08/31/17 05:07 MCHC 30.0 g/dL (31.6-35.5) L 08/31/17 05:07 RDW 15.6 % (11.5-14.5) H 08/31/17 05:07 Plt Count 86 K/mcL (140-400) L 08/31/17 05:07 MPV 12.6 fL (9.4-12.4) H 08/31/17 05:07 Neutrophils # 1.3 K/mcL (1.6-8.9) L 08/31/17 05:07 Nucleated RBCs/100 WBC 0.9 /100 WBC (0) H 08/30/17 05:31 Platelet Estimate Decreased (Normal) L 08/30/17 05:31 Chloride 116 mEq/L (98-107) H 08/31/17 05:07 Carbon Dioxide 20 mEq/L (23-29) L 08/31/17 05:07 Alkaline Phosphatase 153 Units/L (34-104) H 08/28/17 11:25 Serum Total Protein 6.2 g/dL (6.4-8.9) L 08/28/17 11:25 Albumin 3.3 g/dL (3.5-5.7) L 08/28/17 11:25 TSH 0.040 mcIU/mL (0.340-5.600) L 08/28/17 11:25 Ur Leukocyte Esterase Trace (Negative) H 08/28/17 12:38 Urine Microscopic RBC 3-5 per hpf (0-3) H 08/28/17 12:38 Ur Squamous Epith Cells Many per lpf (None-Few) H 08/28/17 12:38 Granular Casts Few per lpf (None Seen) H 08/28/17 12:38 Consult Discharge Plan - Plan Referrals: Pierre Duran MD [Primary Care Provider] - ([facility]) Prescriptions: clonazePAM [Klonopin] 2 mg PO BID PRN 3 Days #6 tablet PRN Reason: anxiety Deutetrabenazine [Austedo] 6 mg PO AD #36 tablet <Zelalem Smith I - Last Filed: 09/04/17 11:47> Date of Encounter: 08/31/17 Assessment and Plan (1) Neuroleptic-induced tardive dyskinesia Status: Acute (2) Tremor due to disorder of central nervous system Status: Acute Pt seen and examined agree with documentations, OK to DC from neuro stand point Zelalem Smith MD Objective - Constitutional Vitals: Temp Pulse Resp BP Pulse Ox 99.8 F H 88 16 103/52 95 08/31/17 11:09 08/31/17 11:09 08/31/17 11:09 08/31/17 11:09 08/31/17 11:09 Results - Laboratory Findings CBC and BMP: 08/31/17 05:07 08/31/17 05:07 Abnormal lab findings: Abnormal lab results WBC 3.6 K/mcL (4.3-11.1) L 08/31/17 05:07 RBC 2.76 M/mcL (3.82-4.97) L 08/31/17 05:07 Hgb 8.2 g/dL (11.5-15.4) L 08/31/17 05:07 Hct 27.3 % (35.3-44.9) L 08/31/17 05:07 MCHC 30.0 g/dL (31.6-35.5) L 08/31/17 05:07 RDW 15.6 % (11.5-14.5) H 08/31/17 05:07 Plt Count 86 K/mcL (140-400) L 08/31/17 05:07 MPV 12.6 fL (9.4-12.4) H 08/31/17 05:07 Neutrophils # 1.3 K/mcL (1.6-8.9) L 08/31/17 05:07 Nucleated RBCs/100 WBC 0.9 /100 WBC (0) H 08/30/17 05:31 Platelet Estimate Decreased (Normal) L 08/30/17 05:31 Chloride 116 mEq/L (98-107) H 08/31/17 05:07 Carbon Dioxide 20 mEq/L (23-29) L 08/31/17 05:07 Alkaline Phosphatase 153 Units/L (34-104) H 08/28/17 11:25 Serum Total Protein 6.2 g/dL (6.4-8.9) L 08/28/17 11:25 Albumin 3.3 g/dL (3.5-5.7) L 08/28/17 11:25 TSH 0.040 mcIU/mL (0.340-5.600) L 08/28/17 11:25 Ur Leukocyte Esterase Trace (Negative) H 08/28/17 12:38 Urine Microscopic RBC 3-5 per hpf (0-3) H 08/28/17 12:38 Ur Squamous Epith Cells Many per lpf (None-Few) H 08/28/17 12:38 Granular Casts Few per lpf (None Seen) H 08/28/17 12:38
[2017-08-31] MEDS ORDERED: FLUARIX QUAD 2017-18 36MOS UP/PF 0.5 ML SYRINGE IM ONE (13:39)
== END 2017-08-31 15:41 | DRG 71 ==
LOC: 2SOUTHHOLD 10:00 → EMEROO 10:00 → 2SOUTHHOLD 14:30 → 1NENUPED 08-30 07:10 → 3ANU 08-30 19:27
PROVIDERS: ADMIT Student in an Organized Health Care Education/Training Program; ATTEND Internal Medicine

== ENCOUNTER 2018-02-22 20:45 | Inpatient (IN) ==
--- NOTE | 2018-02-22 20:53 | Emergency Department Note ---
Disposition Clinical Impression: Abdominal distension, HCAP (healthcare-associated pneumonia) Altered mental status Qualifiers: Altered mental status type: unspecified Qualified Code(s): R41.82 - Altered mental status, unspecified Disposition: Admitted As Inpatient Referrals: Jimenez Zavala MD [Primary Care Provider] - Forms: ED Satisfaction Letter, Work/School Release Time of Disposition: 00:34 General Adult HPI - General Chief complaint: ED General Medical Stated complaint: AMS Time Seen by Provider: 02/22/18 20:47 Source: EMS Mode of arrival: EMS Limitations: physical limitation Nursing Notes Reviewed: Yes Vital Signs Reviewed: Yes - History of Present Illness HPI Narrative: Patient is a 37-year-old female with past medical history of anoxic brain injury and drug abuse, schizophrenia, chronic dysphasia, and anoxic brain injury , COPD. She presents today via EMS due to concern for altered mental status, decreased PO intake, difficulty with swallowing food. According to family at bedside, patient does have anoxic brain injury but was walking around just a couple days ago. Today, she has been bedbound, is not talking as much as usual , appears to be "lethargic" to her family. No known falls. Not on any blood thinners. The patient herself is not able to answer any review of system questions. Family and long-term states that they were concerned that the patient abdomen felt rigid. No witnessed nausea, vomiting, fevers, diarrhea, falls. - Related Data Home Medications Medication Instructions Recorded Confirmed Albuterol Sulfate [Albuterol 2 puff IH Q4H PRN 07/28/15 09/08/17 Inhaler] Omeprazole [PriLOSEC] 20 mg PO DAILY 07/28/15 09/08/17 Levothyroxine [Synthroid] 125 mcg PO QAM 11/30/15 09/08/17 Escitalopram [Lexapro] 20 mg PO DAILY 10/03/16 09/08/17 Amantadine [Symmetrel] 100 mg PO QID 07/09/17 09/08/17 Pentosan Polysulfate Sodium 100 mg PO TID 07/09/17 09/08/17 [Elmiron] Topiramate [Topamax] 200 mg PO TID 07/09/17 09/08/17 traZODone [TraZODone] 300 mg PO HS PRN 07/09/17 09/08/17 Cholecalciferol (D-3) [Vitamin D] 1,000 unit PO DAILY 08/28/17 09/08/17 Guaifenesin [Mucinex] 600 mg PO BID 09/08/17 09/08/17 Ipratropium/Albuterol Neb [Duoneb] 3 ml IH Q6HR 09/08/17 09/08/17 Promethazine HCl 0.5 tab PO Q6H PRN 09/08/17 09/08/17 Previous Rx's Medication Instructions Recorded Ferrous Sulfate 325 mg PO DAILY@0800 #30 tablet 07/17/17 Loperamide [Imodium] 2 mg PO Q8HR PRN #30 capsule 07/17/17 Melatonin 3 mg PO HS PRN tablet 07/17/17 Multivitamin [One Daily 1 each PO DAILY #30 tablet 07/17/17 Multivitamin] Acetaminophen [Tylenol] 650 mg PO Q6HR PRN tablet 08/31/17 Ciprofloxacin OPTH Soln [Ciloxan 2 drop BOTH EYES Q4HR bottle 08/31/17 OPTH Soln] Deutetrabenazine [Austedo] 6 mg PO AD #36 tablet 08/31/17 Benztropine [Cogentin] 1 mg PO Q12H tablet 09/17/17 Gabapentin [Neurontin] 600 mg PO TID #9 capsule 09/17/17 Quetiapine Fumarate [Seroquel] 300 mg PO HS tablet 09/17/17 clonazePAM [Klonopin] 1 mg PO BID PRN 3 Days #6 tablet 09/17/17 Allergies Allergy/AdvReac Type Severity Reaction Status Date / Time aripiprazole [From Abilify] Allergy Difficulty Verified 06/28/17 16:26 Breathing aspirin Allergy Difficulty Verified 06/28/17 16:26 Breathing ibuprofen Allergy Difficulty Verified 06/28/17 16:26 Breathing latex Allergy Difficulty Verified 06/28/17 16:26 Breathing metronidazole [From Flagyl] Allergy Difficulty Verified 06/28/17 16:26 Breathing naproxen [From Aleve] Allergy Difficulty Verified 06/28/17 16:26 Breathing Sulfa (Sulfonamide Allergy Vomiting Verified 06/28/17 16:26 Antibiotics) pea Allergy Unknown unsure Uncoded 09/12/17 19:41 Limitations: ROS unobtainable due to patients medical condition Past Medical History - Past Medical History Medical history: Reports: arthritis, asthma, COPD, GERD, hypertension, migraine , osteoporosis, seizures, thyroid disease, syncope, other Surgical history: Reports: orthopedic, other, sinus surgery, other Psychiatric history: Reports: schizophrenia [employer] INSPECTOR history: Reports: no [employer] INSPECTOR history - Social History Smoking Status: Unknown if ever smoked Smokeless Tobacco Status: No Alcohol use: Reports: unknown Drug use: Reports: unknown Physical Exam - General Limitations: altered mental status, physical limitation General appearance: alert, in no apparent distress - Head Head exam: atraumatic, normocephalic, normal inspection - Eye Eye exam: Present: normal appearance, PERRL, EOMI - ENT ENT exam: normal exam, normal oropharynx, mucous membranes dry - Neck Neck exam: Present: normal inspection, full ROM, trachea midline - Chest Chest inspection: Present: normal inspection, symmetric chest wall rise - Respiratory Respiratory exam: Present: normal lung sounds bilaterally - Cardiovascular Cardiovascular exam: Present: regular rate, normal rhythm, normal heart sounds - Abdominal Exam Abdominal exam: Present: rigidity (throughout entire abdomen but otherwise appears to be nontender). Absent: guarding, rebound - Extremities Exam Extremities exam: Present: normal inspection, full ROM. Absent: tenderness, pedal edema - Neurological Exam Neurological exam: Present: alert, other (Patient is alert, will track with her eyes, otherwise is not answering any questions or following any commands. She does have generalized tremor at rest.) - Expanded Neurological Exam Coma Scale Eye Opening: Spontaneous Coma Scale Motor Response: Localizes to Pain Coma Scale Verbal Response: None Coma Scale Total: 10 - Psychiatric Psychiatric exam: Present: normal affect, normal mood - Skin Skin exam: Present: warm, dry, intact, normal color Course Course Narrative: We will obtain CT the head, EKG, basic labs, troponin, chest x-ray, urinalysis. Concern for intracranial versus infectious etiology of patient's change in mental status. 00:32 family is not present. Patient is now answering more questions. labs show elevated white blood cell count. Chronic anemia. Elevated troponin 0.07. No current chest pain or shortness of breath. D-dimer was elevated, CTA of the chest was obtained. She is a lateral pulmonary infiltrates. Concern for healthcare acquired pneumonia, started on Vanc, Zosyn, Levaquin. Cultures sent. CT abdomen and pelvis shows a large stool burden but no impaction or obstruction no other acute intra-abdominal process. Patient is full code according to paperwork that was sent over. Patient accepted for admission by Dr. Chan. Chest CTA 02/22/18 20:17 IMPRESSION: No PE identified. Bilateral pulmonary infiltrates with mild bilateral pleural effusions. Evidence of chronic granulomatous disease. D/ / Chai Pérez MD / Chai Pérez MD Interpreting Provider: Chai Pérez MD Chest X-Ray 02/22/18 20:53 IMPRESSION: Borderline pulmonary vascular congestion. Otherwise no acute abnormality detected. D/ / Vic Boyce MD / Vic Boyce MD Interpreting Provider: Vic Boyce MD Abdomen/Pelvis CT 02/22/18 20:55 IMPRESSION: 1. Limited examination due to paucity of intra-abdominal fat with crowding soft tissue structures, motion streak artifact and diffuse anasarca. 2. Large stool burden is seen throughout dilated loops of colon up to 7 cm. Findings may represent sequela of severe constipation or a functional ileus. 3. No evidence small bowel obstruction. 4. The appendix is not visualized. 5. Trace bilateral pleural effusions. Patchy opacities at the lung bases could represent atelectasis, pneumonia or sequela of aspiration. D/ / Levi Colón MD / Levi Colón MD Interpreting Provider: Levi Colón MD Head CT 02/22/18 21:17 IMPRESSION: The examination is slightly limited by motion degradation. Otherwise no definite acute intracranial findings. Minimal sphenoid sinusitis. D/ / 02/22/2018 23:32:39 Levi Colón MD / yadiel Interpreting Provider: Levi Colón MD Vital Signs Temperature 99 F 02/22/18 20:50 Pulse Rate 80 02/22/18 20:50 Respiratory Rate 20 02/22/18 20:50 Blood Pressure 119/58 02/22/18 20:50 O2 Sat by Pulse Oximetry 95 02/22/18 20:50 Temperature 99 F 02/22/18 20:50 Pulse Rate 86 02/22/18 23:56 Respiratory Rate 22 02/22/18 23:56 Blood Pressure 115/93 02/22/18 23:56 O2 Sat by Pulse Oximetry 98 02/22/18 23:56 Oxygen Delivery Oxygen Delivery Room Air Medical Decision Making - MDM Narrative Medical decision making narrative: We will obtain CT the head, EKG, basic labs, troponin, chest x-ray, urinalysis. Concern for intracranial versus infectious etiology of patient's change in mental status. 00:32 family is not present. Patient is now answering more questions. labs show elevated white blood cell count. Chronic anemia. Elevated troponin 0.07. No current chest pain or shortness of breath. D-dimer was elevated, CTA of the chest was obtained. She is a lateral pulmonary infiltrates. Concern for healthcare acquired pneumonia, started on Vanc, Zosyn, Levaquin. Cultures sent. CT abdomen and pelvis shows a large stool burden but no impaction or obstruction no other acute intra-abdominal process. Patient is full code according to paperwork that was sent over. Patient accepted for admission by Dr. Chan. - Medical Records Medical records reviewed: Yes I reviewed the patient's medical records. - Lab Data Lab results reviewed: Yes I reviewed the patient's lab results. Result diagrams: 02/22/18 21:03 02/22/18 21:03 Lab Results 02/22/18 02/22/18 02/22/18 Range/Units 21:03 21:03 21:03 WBC 15.6 H (4.3-11.1) K/mcL RBC 2.90 L (3.82-4.97) M/mcL Hgb 9.1 L (11.5-15.4) g/dL Hct 27.2 L (35.3-44.9) % MCV 93.8 (83.0-100.0) fL MCH 31.4 (28.0-33.3) pg MCHC 33.5 (31.6-35.5) g/dL RDW 15.7 H (11.5-14.5) % Plt Count 227 (140-400) K/mcL MPV 11.8 (9.4-12.4) fL Immature Gran % 0.4 (0-4) % Seg Neutrophils % 77.1 % Lymphocytes % 14.7 % Monocytes % 7.2 % Eosinophils % 0.3 % Basophils % 0.3 % Neutrophils # 12.0 H (1.6-8.9) K/mcL Lymphocytes # 2.3 (0.6-4.6) K/mcL Monocytes # 1.1 (0.0-1.3) K/mcL Eosinophils # 0.1 (0.0-0.6) K/mcL Basophils # 0.1 (0.0-0.2) K/mcL PT 13.6 H (9.4-12.1) Seconds INR 1.2 APTT 37.0 H (26.0-36.0) Seconds D-Dimer 793 H (0-500) ng/mLFEU Sodium 135 L (136-145) mEq/L Potassium 4.7 (3.5-5.1) mEq/L Chloride 102 (98-107) mEq/L Carbon Dioxide 26 (23-29) mEq/L BUN 28 H (6-20) mg/dL Creatinine 1.50 H (0.60-1.20) mg/dL Est GFR ( Amer) 47 L (> 60) Est GFR (Non-Af Amer) 39 L (> 60) BUN/Creatinine Ratio 19 (6-26) Glucose 93 (70-105) mg/dL Calculated Osmolality 285 (280-300) Lactic Acid (0.5-2.2) mmol/L Calcium 9.6 (8.6-10.3) mg/dL Total Bilirubin 0.4 (0.3-1.0) mg/dL Direct Bilirubin 0.0 (0.0-0.2) mg/dL Indirect Bilirubin 0.4 (0.0-1.2) mg/dL AST 42 H (13-39) Units/L ALT 53 H (7-52) Units/L Alkaline Phosphatase 143 H (34-104) Units/L Troponin I 0.07 H* (< 0.04) ng/mL Serum Total Protein 6.1 L (6.4-8.9) g/dL Albumin 3.4 L (3.5-5.7) g/dL Globulin 2.7 (2.4-3.5) g/dL Albumin/Globulin Ratio 1.3 (1.1-2.2) Urine Color (Yellow) Urine Clarity (Clear) Urine pH (5.0-8.0) pH Units Ur Specific [place] (1.010-1.025) Urine Protein (Neg-Trace) mg/dL Urine Glucose (UA) (Normal) mg/dL Urine Ketones (Negative) mg/dL Urine Blood (Negative) Urine Nitrite (Negative) Urine Bilirubin (Negative) Urine Urobilinogen (Normal) mg/dL Ur Leukocyte Esterase (Negative) Urine Microscopic RBC (0-3) per hpf Urine Microscopic WBC (0-3) per hpf Ur Squamous Epith Cells (None-Few) per lpf Urine Bacteria (None-Few) per hpf Hyaline Casts (None-Few) per lpf Ur Culture Indicated? (NO) 02/22/18 02/22/18 Range/Units 21:03 21:19 WBC (4.3-11.1) K/mcL RBC (3.82-4.97) M/mcL Hgb (11.5-15.4) g/dL Hct (35.3-44.9) % MCV (83.0-100.0) fL MCH (28.0-33.3) pg MCHC (31.6-35.5) g/dL RDW (11.5-14.5) % Plt Count (140-400) K/mcL MPV (9.4-12.4) fL Immature Gran % (0-4) % Seg Neutrophils % % Lymphocytes % % Monocytes % % Eosinophils % % Basophils % % Neutrophils # (1.6-8.9) K/mcL Lymphocytes # (0.6-4.6) K/mcL Monocytes # (0.0-1.3) K/mcL Eosinophils # (0.0-0.6) K/mcL Basophils # (0.0-0.2) K/mcL PT (9.4-12.1) Seconds INR APTT (26.0-36.0) Seconds D-Dimer (0-500) ng/mLFEU Sodium (136-145) mEq/L Potassium (3.5-5.1) mEq/L Chloride (98-107) mEq/L Carbon Dioxide (23-29) mEq/L BUN (6-20) mg/dL Creatinine (0.60-1.20) mg/dL Est GFR ( Amer) (> 60) Est GFR (Non-Af Amer) (> 60) BUN/Creatinine Ratio (6-26) Glucose (70-105) mg/dL Calculated Osmolality (280-300) Lactic Acid 0.4 L (0.5-2.2) mmol/L Calcium (8.6-10.3) mg/dL Total Bilirubin (0.3-1.0) mg/dL Direct Bilirubin (0.0-0.2) mg/dL Indirect Bilirubin (0.0-1.2) mg/dL AST (13-39) Units/L ALT (7-52) Units/L Alkaline Phosphatase (34-104) Units/L Troponin I (< 0.04) ng/mL Serum Total Protein (6.4-8.9) g/dL Albumin (3.5-5.7) g/dL Globulin (2.4-3.5) g/dL Albumin/Globulin Ratio (1.1-2.2) Urine Color Yellow (Yellow) Urine Clarity Turbid A (Clear) Urine pH 6.5 (5.0-8.0) pH Units Ur Specific [place] 1.015 (1.010-1.025) Urine Protein Trace (Neg-Trace) mg/dL Urine Glucose (UA) Normal (Normal) mg/dL Urine Ketones Trace H (Negative) mg/dL Urine Blood Negative (Negative) Urine Nitrite Negative (Negative) Urine Bilirubin Negative (Negative) Urine Urobilinogen Normal (Normal) mg/dL Ur Leukocyte Esterase Small H (Negative) Urine Microscopic RBC 5-15 H (0-3) per hpf Urine Microscopic WBC 5-15 H (0-3) per hpf Ur Squamous Epith Cells Many H (None-Few) per lpf Urine Bacteria None Seen (None-Few) per hpf Hyaline Casts Few (None-Few) per lpf Ur Culture Indicated? NO. A (NO) - Radiology Data Radiology results reviewed: Yes I reviewed the patient's radiology results. - EKG Data EKG #1 EKG attestation: Yes I reviewed and interpreted this EKG. EKG results narrative: 02/22/2018 at 21:13. Normal sinus rhythm. Rate 80. AK 129. QRS 98. QTC 429. No axis. No acute ST elevation or depression. Significant artifact due to patient's baseline tremor. S.B.A.R. - S.Tim.AGina. Situation: Demographics, MOA Background: Presenting Complaint, Relevant PMH, Meds, & Allergies Assessment: Vital Signs, Course and respsone to treatment, Exam Concerns, Patient/Family Expectation, Pertinant Lab Results Recommendation: Barrier(s) to disposition, Recommendation based on pending studies, treatments, or consults S.B.A.R. Report Given to: Dr. chan
--- NOTE | 2018-02-22 21:01 | Emergency Department Note ---
Disposition Clinical Impression: Abdominal distension Disposition: Still a Patient Referrals: Jimenez Zavala MD [Primary Care Provider] - General Adult HPI - General Chief complaint: ED General Medical Time Seen by Provider: 02/22/18 20:47 Source: EMS Mode of arrival: EMS Limitations: physical limitation - History of Present Illness Pain Scale: 0 - Related Data Home Medications Medication Instructions Recorded Confirmed Albuterol Sulfate [Albuterol 2 puff IH Q4H PRN 07/28/15 09/08/17 Inhaler] Omeprazole [PriLOSEC] 20 mg PO DAILY 07/28/15 09/08/17 Levothyroxine [Synthroid] 125 mcg PO QAM 11/30/15 09/08/17 Escitalopram [Lexapro] 20 mg PO DAILY 10/03/16 09/08/17 Amantadine [Symmetrel] 100 mg PO QID 07/09/17 09/08/17 Pentosan Polysulfate Sodium 100 mg PO TID 07/09/17 09/08/17 [Elmiron] Topiramate [Topamax] 200 mg PO TID 07/09/17 09/08/17 traZODone [TraZODone] 300 mg PO HS PRN 07/09/17 09/08/17 Cholecalciferol (D-3) [Vitamin D] 1,000 unit PO DAILY 08/28/17 09/08/17 Guaifenesin [Mucinex] 600 mg PO BID 09/08/17 09/08/17 Ipratropium/Albuterol Neb [Duoneb] 3 ml IH Q6HR 09/08/17 09/08/17 Promethazine HCl 0.5 tab PO Q6H PRN 09/08/17 09/08/17 Previous Rx's Medication Instructions Recorded Ferrous Sulfate 325 mg PO DAILY@0800 #30 tablet 07/17/17 Loperamide [Imodium] 2 mg PO Q8HR PRN #30 capsule 07/17/17 Melatonin 3 mg PO HS PRN tablet 07/17/17 Multivitamin [One Daily 1 each PO DAILY #30 tablet 07/17/17 Multivitamin] Acetaminophen [Tylenol] 650 mg PO Q6HR PRN tablet 08/31/17 Ciprofloxacin OPTH Soln [Ciloxan 2 drop BOTH EYES Q4HR bottle 02/15/18 OPTH Soln] Deutetrabenazine [Austedo] 6 mg PO AD #36 tablet 08/31/17 Benztropine [Cogentin] 1 mg PO Q12H tablet 09/17/17 Gabapentin [Neurontin] 600 mg PO TID #9 capsule 09/17/17 Quetiapine Fumarate [Seroquel] 300 mg PO HS tablet 09/17/17 clonazePAM [Klonopin] 1 mg PO BID PRN 3 Days #6 tablet 09/17/17 Allergies Allergy/AdvReac Type Severity Reaction Status Date / Time aripiprazole [From Abilify] Allergy Difficulty Verified 06/28/17 16:26 Breathing aspirin Allergy Difficulty Verified 06/28/17 16:26 Breathing ibuprofen Allergy Difficulty Verified 06/28/17 16:26 Breathing latex Allergy Difficulty Verified 06/28/17 16:26 Breathing metronidazole [From Flagyl] Allergy Difficulty Verified 06/28/17 16:26 Breathing naproxen [From Aleve] Allergy Difficulty Verified 06/28/17 16:26 Breathing Sulfa (Sulfonamide Allergy Vomiting Verified 06/28/17 16:26 Antibiotics) pea Allergy Unknown unsure Uncoded 09/12/17 19:41 Past Medical History - Past Medical History Medical history: Reports: arthritis, asthma, COPD, GERD, hypertension, migraine , osteoporosis, seizures, thyroid disease, syncope, other Surgical history: Reports: orthopedic, other, sinus surgery, other Psychiatric history: Reports: schizophrenia [employer] BAILIFF history: Reports: no [employer] BAILIFF history - Social History Smoking Status: Unknown if ever smoked Smokeless Tobacco Status: No Alcohol use: Reports: unknown Drug use: Reports: unknown Physical Exam - General Limitations: physical limitation General appearance: alert Course - Reevaluation(s) Reevaluation #1: Attestation note I examined this patient and my medical decision-making was reviewed with the emergency medicine resident. I agree with the documented findings, disposition and treatment plan as described except to the extent set forth below. Patient seen with emergency medicine resident Dr. Eddy Reinoso, Please see a copy of his note for details of the H&P, ED evaluation, management and disposition. I have independently evaluated the patient and confirmed appropriate portions of the history and physical exam. Briefly: 37-year-old female from local [facility] by EMS for possible aspiration. Patient has a history of anoxic brain injury bedbound the report that she might of had some dyspnea and/or aspiration. Patient can provide no history. Consulting with the [facility] screening labs patient is a firm abdomen patient with an abdominal pelvic CT. Disposition pending. Time: 21:00 Vital Signs Temperature 99 F 02/22/18 20:50 Pulse Rate 80 02/22/18 20:50 Respiratory Rate 20 02/22/18 20:50 Blood Pressure 119/58 02/22/18 20:50 O2 Sat by Pulse Oximetry 95 02/22/18 20:50 Temperature 99 F 02/22/18 20:50 Pulse Rate 80 02/22/18 20:50 Respiratory Rate 20 02/22/18 20:50 Blood Pressure 119/58 02/22/18 20:50 O2 Sat by Pulse Oximetry 95 02/22/18 20:50 Oxygen Delivery Oxygen Delivery Room Air
[2018-02-22 21:20] LABS: Basophils # 0.1 K/mcL (0.0-0.2); Basophils % 0.3 %; Eosinophils # 0.1 K/mcL (0.0-0.6); Eosinophils % 0.3 %; Hematocrit 27.2 % (35.3-44.9); Hemoglobin 9.1 g/dL (11.5-15.4); Immature Granulocytes % 0.4 % (0-4); Lymphocytes # 2.3 K/mcL (0.6-4.6); Lymphocytes % 14.7 %; Mean Corpuscular HGB Conc 33.5 g/dL (31.6-35.5); Mean Corpuscular Hemoglobin 31.4 pg (28.0-33.3); Mean Corpuscular Volume 93.8 fL (83.0-100.0); Mean Platelet Volume 11.8 fL (9.4-12.4); Monocytes # 1.1 K/mcL (0.0-1.3); Monocytes % 7.2 %; Platelet Count 227 K/mcL (140-400); Red Cell Distribution Width 15.7 % (11.5-14.5); Segmented Neutrophils % 77.1 %
[2018-02-22] MEDS ORDERED: *HR* LORazepam 2 MG/ML VIAL IVP ONE ×2 (21:21→23:59)
[2018-02-22 21:28] LABS: INR 1.2; Prothrombin Time 13.6 Seconds (9.4-12.1)
[2018-02-22 21:28] LABS: Bilirubin,Urine Negative (Negative); Blood,Urine Negative (Negative); Clarity,Urine Turbid (Clear); Color,Urine Yellow (Yellow); Glucose,Urine (UA) Normal (Normal); Ketones,Urine Trace mg/dL (Negative); Leukocyte Esterase,Urine Small (Negative); Nitrite,Urine Negative (Negative); PH,Urine 6.5 pH Units (5.0-8.0); Protein,Urine Trace mg/dL (Neg-Trace); Specific Gravity,Urine 1.015 (1.010-1.025); Urobilinogen,Urine Normal (Normal)
[2018-02-22 21:33] LABS: Bacteria,Urine None Seen per hpf (None-Few); Hyaline Casts,Urine Few per lpf (None-Few); Squamous Epithelial Cell,Urine Many per lpf (None-Few)
[2018-02-22 21:44] LABS: Albumin 3.4 g/dL (3.5-5.7); Albumin/Globulin Ratio 1.3 (1.1-2.2); Bilirubin,Indirect 0.4 mg/dL (0.0-1.2); Bilirubin,Total 0.4 mg/dL (0.3-1.0); Calcium 9.6 mg/dL (8.6-10.3); Globulin 2.7 g/dL (2.4-3.5); Potassium 4.7 mEq/L (3.5-5.1); Total Protein 6.1 g/dL (6.4-8.9); Troponin I 0.07 ng/mL (< 0.04)
[2018-02-22] MEDS ORDERED: Isovue-370 500 ML INFUS..BTL IV ONE (22:16)
[2018-02-22] MEDS: 0.9 % Sodium Chloride 1,000 ML IVC ONE (22:28)
[2018-02-22] MEDS ORDERED: Levofloxacin 750 MG/150 ML 750 MG/150 ML BAG IVPB ONE (23:58)
[2018-02-22] MEDS ORDERED: Piperacillin/Tazobactam 3.375 GM in 0.9 % Sodium Chloride Mini Bag 100 ML IVPB ONE (23:58)
[2018-02-23] MEDS ORDERED: 0.9 % Sodium Chloride 1,000 ML IVC ONE (00:57)
[2018-02-23] MEDS ORDERED: 0.9 % Sodium Chloride 1,000 ML ONE (00:57)
[2018-02-23] MEDS: 0.9 % Sodium Chloride 1,000 ML IVC ONE (01:00)
[2018-02-23] MEDS ORDERED: Naloxone 0.4 MG/ML INJ IVP PRN (01:08)
[2018-02-23] MEDS ORDERED: Ondansetron 4 MG/2 ML VIAL IVP PRN (01:08)
--- NOTE | 2018-02-23 01:15 | Internal Med History&Physical ---
Addendum entered and electronically signed by Julien Price DO 02/23/18 02:27: Additional assessment: Elevated troponin of 0.07. likely demand ischemia secondary to acute illness of pneumonia. Will trend. Original Note: <OgkamilaJulien miguel - Last Filed: 02/23/18 02:15> Date of Encounter: 02/23/18 Time of Encounter: 01:15 Internal Medicine - H&P: HPI Chief complaint: Altered mental status Admitted From: Emergency Dept Plans for Post Hospital Care: Transfer Intermediate Facility History of present illness: Ms. Mendoza is a 37 year old female with past medical history of anoxic brain injury, COPD, GERD, hypertension, seizures, thyroid, schizophrenia who presented to emergency department from care home with complaint of increased lethargy, dysphasia. Patient is normally alert and oriented 1 and answers some questions however interview was showing limited. She is unsure why she presented to the emergency department but states she is experiencing some lower abdominal pain. She denies having a cough or shortness of breath as well as fever or chills. When asked about her appetite she states that she does not trust food at the care home. In the emergency room, vital signs were within normal limits with a temperature of 99, saturating 95% on room air. Respiratory rate 20. Laboratory results significant for a WBC of 15.6, d-dimer 793, BUn/creatinine of 28/1.50, troponin 0.07, LFTs very mildly elevated at AST 42, ALP 53, alkaline phosphatase 143. Chest x-ray shows possible early pulmonary edema was unremarkable. CTA of the chest was performed due to elevated d-dimer and showed bilateral pulmonary infiltrates. CT of the abdomen was also obtained and showed a large stool burden with a maximum diameter of 7 cm. EKG was unremarkable. Past medical history as above Past surgical history per chart review shows knee surgery, sinus surgery Social history unknown Per documentation in patient's chart, she is a full code and no family is present at bedside. Past Med Surg Social Fam HX - Past Medical History Medical history: arthritis, asthma, COPD, GERD, hypertension, migraine, osteoporosis, seizures, thyroid disease, syncope, other Additional medical history: [place] Psychiatric history: schizophrenia - Past Surgical History Surgical History: orthopedic, other, sinus surgery, other Additional surgical history: KNEE SURGERY - Social History Smoking Status: Unknown if ever smoked Smokeless Tobacco Status: No Alcohol use: unknown Drug use: unknown - Family History Father Living Status: Mother Daughter Family Member Ethnicity: Non- Mother Family Member Ethnicity: Non- Living Status: Still Living Hx Family Respiratory Disorders: No Hx Family Cancer: No Internal Medicine - H&P: Meds Albuterol Sulfate [Albuterol Inhaler] 2 puff IH Q4H PRN 07/28/15 [History] Omeprazole [PriLOSEC] 20 mg PO DAILY 07/28/15 [History] Levothyroxine [Synthroid] 125 mcg PO QAM 11/30/15 [History] Escitalopram [Lexapro] 20 mg PO DAILY 10/03/16 [History] Amantadine [Symmetrel] 100 mg PO QID 07/09/17 [History] Pentosan Polysulfate Sodium [Elmiron] 100 mg PO TID 07/09/17 [History] Topiramate [Topamax] 200 mg PO TID 07/09/17 [History] traZODone [TraZODone] 300 mg PO HS PRN 07/09/17 [History] Ferrous Sulfate 325 mg PO DAILY@0800 #30 tablet 07/17/17 [Rx] Loperamide [Imodium] 2 mg PO Q8HR PRN #30 capsule 07/17/17 [Rx] Melatonin 3 mg PO HS PRN tablet 07/17/17 [Rx] Multivitamin [One Daily Multivitamin] 1 each PO DAILY #30 tablet 07/17/17 [Rx] Cholecalciferol (D-3) [Vitamin D] 1,000 unit PO DAILY 08/28/17 [History] Acetaminophen [Tylenol] 650 mg PO Q6HR PRN tablet 08/31/17 [Rx] Ciprofloxacin OPTH Soln [Ciloxan OPTH Soln] 2 drop BOTH EYES Q4HR bottle [Rx] Deutetrabenazine [Austedo] 6 mg PO AD #36 tablet 08/31/17 [Rx] Guaifenesin [Mucinex] 600 mg PO BID 09/08/17 [History] Ipratropium/Albuterol Neb [Duoneb] 3 ml IH Q6HR 09/08/17 [History] Promethazine HCl 0.5 tab PO Q6H PRN 09/08/17 [History] Benztropine [Cogentin] 1 mg PO Q12H tablet 09/17/17 [Rx] Gabapentin [Neurontin] 600 mg PO TID #9 capsule 09/17/17 [Rx] Quetiapine Fumarate [Seroquel] 300 mg PO HS tablet 09/17/17 [Rx] clonazePAM [Klonopin] 1 mg PO BID PRN 3 Days #6 tablet 09/17/17 [Rx] 3 Allergy/AdvReac Type Severity Reaction Status Date / Time aripiprazole [From Abilify] Allergy Difficulty Verified 06/28/17 16:26 Breathing aspirin Allergy Difficulty Verified 06/28/17 16:26 Breathing ibuprofen Allergy Difficulty Verified 06/28/17 16:26 Breathing latex Allergy Difficulty Verified 06/28/17 16:26 Breathing metronidazole [From Flagyl] Allergy Difficulty Verified 06/28/17 16:26 Breathing naproxen [From Aleve] Allergy Difficulty Verified 06/28/17 16:26 Breathing Sulfa (Sulfonamide Allergy Vomiting Verified 06/28/17 16:26 Antibiotics) pea Allergy Unknown unsure Uncoded 09/12/17 19:41 ROS unobtainable: due to mental status All Systems PM: A 10-system review of systems was performed and is negative for pertinent findings except as documented above in the HPI. - Constitutional Constitutional: no chills, no fever(s) - Cardiovascular Cardiovascular ROS IM: no chest pain - Respiratory Respiratory: no cough - Gastrointestinal Gastrointestinal: abdominal pain, no nausea - Constitutional Vitals: Temp Pulse Resp BP Pulse Ox 99 F 83 12 99/60 97 02/22/18 20:50 02/23/18 01:03 02/23/18 01:03 02/23/18 01:03 02/23/18 01:03 Exam: Gen.: Vitals noted. No acute distress. AAOx 1. Patient does open her eyes spontaneously respond to questions however she does appear confused. She has tremor in all extremities. Malnourished appearing HEENT: PERRL/EOMI, oropharynx clear, Normocephalic, atraumatic, MMM Cardiac: RRR, no murmur, +S1/S2 Pulmonary: CTA bilaterally, no wheezes, rales or rhonchi, equal chest expansion , exam is limited secondary to inability to follow directions Abdomen: Very distended and firm abdomen. Nontender to palpation bowel sounds decreased, no guarding Extremities: no BLE edema, nontender calf, no cyanosis or clubbing Neuro: A&Ox1, moves all extremities, no focal deficits Psych: Unable to assess secondary to mental status Internal Med - H&P Results - Labs CBC & Chem 7: 02/22/18 21:03 02/22/18 21:03 - Assessment and plan (1) HCAP (healthcare-associated pneumonia) Current Visit: Yes Status: Acute Assessment and plan: Patient is from nursing facility Evidence of bilateral pulmonary infiltrates on CT scan obtained emergency department WBC elevation of 15.6 Patient denies history of fevers, is nonseptic appearing however respiratory rate is 20 making her sirs criteria positive Received vancomycin, Zosyn, Levaquin and emergency department Pulmonary auscultation was limited on physical exam Chest x-ray was negative however patient is clinically dehydrated Plan Start vancomycin, Zosyn, azithromycin for atypical coverage Continue monitor Supplemental oxygen as needed Breathing treatments when necessary Fluids as below (2) Constipation Current Visit: Yes Status: Acute Assessment and plan: Suspect secondary to both drug-induced as well as slow transit constipation Patient's home medications does include Imodium Patient is distended on physical exam and CT of the abdomen shows a large stool burden Likely source patient's abdominal pain We will start with suppository and enema Qualifiers: Constipation type: drug induced constipation Qualified Code(s): K59.03 - Drug induced constipation (3) Acute kidney injury superimposed on chronic kidney disease Current Visit: Yes Status: Acute Assessment and plan: BUNs/creatinine of 28/1.50 which is elevated from her baseline creatinine of around 1 This is likely secondary to decreased oral intake Patient does admit to not trusting nursing homes food. She also admits to some nausea which may be related to constipation Received 2 L normal saline bolus emergency department We will continue with maintenance fluids for now as she will be nothing by mouth until she passes a speech evaluation Continue monitor and avoid nephrotoxic agents as able (4) Tremor Current Visit: No Status: Acute (5) Essential hypertension Current Visit: Yes Status: Chronic Assessment and plan: Well-controlled this time at 119/58 Continue to monitor and resume the medications if she passes speech evaluation (6) Abdominal distension Current Visit: Yes Status: Acute Assessment and plan: Likely secondary to constipation as above (7) DVT prophylaxis Current Visit: Yes Status: Acute Assessment and plan: Heparin 5000 units every 12 hours (8) Sepsis Current Visit: Yes Status: Acute Assessment and plan: - Secondary to unknown organism however have source of likely PNA. - Urine does not suggest UTI - WBC elevated, RR 20 on presentation - Does not appear septic. - Received 2L Saline bolus on presentation - Abx as above. lactate 0.4 - Continue to monitor and treat underlying Qualifiers: Sepsis type: sepsis due to unspecified organism Qualified Code(s): A41.9 - Sepsis, unspecified organism - Time Spent With Patient Total time spent is greater than 50% in coordination of care (as documented) at patient's floor/unit and/or counseling patient: <Terrell Sharma - Last Filed: 02/23/18 02:50> Date of Encounter: 02/23/18 Internal Medicine - H&P: HPI History of present illness: Ms. Mendoza is a 37 year old female All Systems PM: A 10-system review of systems was performed and is negative for pertinent findings except as documented above in the HPI. - Constitutional Vitals: Temp Pulse Resp BP Pulse Ox 98.1 F 102 18 102/60 98 02/23/18 01:38 02/23/18 01:38 02/23/18 01:38 02/23/18 01:38 02/23/18 01:38 Internal Med - H&P Results - Labs CBC & Chem 7: 02/22/18 21:03 02/22/18 21:03 - Attending Attestation I have seen and examined the patient with Dr. Arango and agree with his/ her assessment and plan. 37-year-old female with past medical history of anoxic brain injury presented to the ED with altered mentation from care home. History is limited due to her prior neurological insult. Upon investigation, she was found to have leukocytosis of 15.6 and FAISAL. Troponin was also elevated at 0.07 without concerning EKG changes. CT scan showed bilateral pulmonary infiltrates at the lung bases with mild bilateral pleural effusions. Treating for HCAP as well as possible aspiration pneumonia, started on vanc/zosyn. Azithro for atypical coverage. NPO and speech eval for aspiration risk. Troponin elevation could be possibly due to demand ischemia from pneumonia +/- FAISAL. Low suspicion for primary cardiac event given her young age, lack of anginal symptoms, and no EKG changes. IVF for FAISAL, monitor Cr, adjust med renally, and avoid nephrotoxins. She is also found to have large amount of stool, will attempt enema and suppository. Terrell Sharma MD - Assessment and plan (1) Acute kidney injury superimposed on chronic kidney disease Current Visit: Yes Status: Acute (2) Tremor Current Visit: No Status: Acute (3) Essential hypertension Current Visit: Yes Status: Chronic (4) DVT prophylaxis Current Visit: Yes Status: Acute (5) Abdominal distension Current Visit: Yes Status: Acute (6) HCAP (healthcare-associated pneumonia) Current Visit: Yes Status: Acute (7) Constipation Current Visit: Yes Status: Acute Qualifiers: Constipation type: drug induced constipation Qualified Code(s): K59.03 - Drug induced constipation (8) Sepsis Current Visit: Yes Status: Acute Qualifiers: Sepsis type: sepsis due to unspecified organism Qualified Code(s): A41.9 - Sepsis, unspecified organism - Time Spent With Patient Total time spent is greater than 50% in coordination of care (as documented) at patient's floor/unit and/or counseling patient:
[2018-02-23] MEDS ORDERED: Milk and Molasses Enema 200 ML RC ONE (01:41)
[2018-02-23] MEDS ORDERED: 0.9 % Sodium Chloride 1,000 ML IVC SCH (02:00)
[2018-02-23] MEDS: Azithromycin 500 MG in D5% in Water 250 ML IVPB SCH (02:19)
[2018-02-23 04:04] LABS: Basophils % 0.3 %; Eosinophils # 0.1 K/mcL (0.0-0.6); Eosinophils % 0.8 %; Hematocrit 23.8 % (35.3-44.9); Hemoglobin 7.8 g/dL (11.5-15.4); Immature Granulocytes % 0.4 % (0-4); Lymphocytes # 1.7 K/mcL (0.6-4.6); Lymphocytes % 16.5 %; Mean Corpuscular HGB Conc 32.8 g/dL (31.6-35.5); Mean Corpuscular Hemoglobin 31.3 pg (28.0-33.3); Mean Corpuscular Volume 95.6 fL (83.0-100.0); Monocytes # 0.9 K/mcL (0.0-1.3); Monocytes % 8.8 %; Neutrophils # 7.4 K/mcL (1.6-8.9); Platelet Count 155 K/mcL (140-400); Red Blood Count 2.49 M/mcL (3.82-4.97); Red Cell Distribution Width 15.6 % (11.5-14.5); Segmented Neutrophils % 73.2 %
[2018-02-23 04:22] LABS: Calcium 8.6 mg/dL (8.6-10.3); Magnesium 2.2 mg/dL (1.6-2.6); Potassium 4.1 mEq/L (3.5-5.1)
[2018-02-23] MEDS: *HR* Heparin 5,000 UNIT/ML VIAL SQ SCH ×2 (05:47→16:25)
--- NOTE | 2018-02-23 07:58 | Electrocardiograph Report ---
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
[2018-02-23] MEDS: Piperacillin/Tazobactam 3.375 GM in 0.9 % Sodium Chloride Mini Bag 100 ML IVPB SCH ×2 (08:38→15:46)
[2018-02-23] MEDS: Bisacodyl 10 MG RECTAL SUPPOSITORY RC SCH (10:01)
--- NOTE | 2018-02-23 14:23 | Event Note ---
Date of Encounter: 02/23/18 Time of Encounter: 09:30 37 year old female with h/o- anoxic brain injury, COPD, HTN, seizure disorder, hypothyroidism, functional quadriplegia, was senet from senior living for apparently altered mental status. Her baseline mental status has not been documented, however patient is noted to be awake and alert, able to answer a few questions although she has an extremely muffled and garbled speech associated with significant upper extremity tremors, making it difficult to understand. Seen and examined at bedside. Thin built, bed bound patient with poor functional status. Awake and alert, oriented to person. Chest-S1, S2 heard. Lungs with coarse breath sounds anterolaterally. Abdomen-somewhat rigid, nontender, nondistended Sepsis secondary to pneumonia- continue broad-spectrum IV antibiotics. Supportive care and supplemental oxygen. Follow-up blood cultures. Suspected aspiration-swallow evaluation has been attempted by SERVICE DELIVERY CONSULTANT, however patient was uncooperative as she was unable to sit upright in bed due to significant dyspnea. To reattempt later. Continue to keep nothing by mouth. Acute kidney injury-continue IV hydration. Serum creatinine improving, 1.47 today. Previous serum creatinine noted to be within normal limits. Avoid nephrotoxic agents.
[2018-02-23] MEDS ORDERED: Haloperidol Lactate 5 MG/ML VIAL IVP PRN (15:27)
[2018-02-23] MEDS: *HR* LORazepam 2 MG/ML VIAL IVP PRN (15:47)
[2018-02-23] MEDS: D5% in 0.45% NACL 1,000 ML IVC SCH (15:47)
[2018-02-23] MEDS: Acetaminophen 650 MG RECTAL SUPP RC PRN ×2 (16:25→23:30)
[2018-02-23] MEDS ORDERED: *HR* LORazepam 2 MG/ML VIAL IVP ONE (23:43)
[2018-02-23] MEDS ORDERED: *HR* LORazepam 2 MG/ML VIAL ONE (23:47)
[2018-02-24] MEDS: Piperacillin/Tazobactam 3.375 GM in 0.9 % Sodium Chloride Mini Bag 100 ML IVPB SCH ×4 (00:14→23:35)
[2018-02-24] MEDS ORDERED: levETIRAcetam 1,000 MG in 0.9 % Sodium Chloride 100 ML IVPB STA (00:16)
[2018-02-24] MEDS: Azithromycin 500 MG in D5% in Water 250 ML IVPB SCH (02:20)
[2018-02-24] MEDS ORDERED: *HR* LORazepam 2 MG/ML VIAL IVP ONE (04:00)
[2018-02-24 04:12] LABS: Basophils % 0.2 %; Hematocrit 26.8 % (35.3-44.9); Hemoglobin 8.7 g/dL (11.5-15.4); Immature Granulocytes % 1.4 % (0-4); Lymphocytes % 8.3 %; Mean Corpuscular HGB Conc 32.5 g/dL (31.6-35.5); Mean Corpuscular Hemoglobin 31.2 pg (28.0-33.3); Mean Corpuscular Volume 96.1 fL (83.0-100.0); Mean Platelet Volume 11.1 fL (9.4-12.4); Monocytes % 4.7 %; Platelet Count 198 K/mcL (140-400); Red Blood Count 2.79 M/mcL (3.82-4.97); Red Cell Distribution Width 15.7 % (11.5-14.5); Segmented Neutrophils % 85.4 %
[2018-02-24 04:13] LABS: Lymphocytes # 1.9 K/mcL (0.6-4.6); Monocytes # 1.1 K/mcL (0.0-1.3)
[2018-02-24 04:29] LABS: Calcium 8.7 mg/dL (8.6-10.3); Potassium 4.9 mEq/L (3.5-5.1)
[2018-02-24] MEDS: *HR* Heparin 5,000 UNIT/ML VIAL SQ SCH ×2 (06:10→16:30)
[2018-02-24] MEDS: D5% in 0.45% NACL 1,000 ML IVC SCH (06:18)
[2018-02-24] MEDS: *HR* LORazepam 2 MG/ML VIAL IVP PRN ×2 (07:56→14:17)
[2018-02-24] MEDS: Bisacodyl 10 MG RECTAL SUPPOSITORY RC SCH (07:57)
[2018-02-24] MEDS ORDERED: WATER FOR INJ IVP ONE (12:40)
[2018-02-24] MEDS ORDERED: DANTROLENE SODIUM IVP ONE (12:40)
[2018-02-24 13:02] LABS: Albumin 3.1 g/dL (3.5-5.7); Albumin/Globulin Ratio 1.4 (1.1-2.2); Bilirubin,Direct 0.2 mg/dL (0.0-0.2); Bilirubin,Indirect 0.2 mg/dL (0.0-1.2); Bilirubin,Total 0.4 mg/dL (0.3-1.0); Globulin 2.2 g/dL (2.4-3.5); Total Protein 5.3 g/dL (6.4-8.9)
--- NOTE | 2018-02-24 13:51 | Internal Med Progress Note ---
Hospitalist Progress Note - Encounter Date of Encounter: 02/24/18 Time of Encounter: 09:00 - Subjective Interval History: Patient reportedly had seizure-like activity last night, received 2 doses of Ativan, currently fast asleep. Noted to have fever spikes with maximum temperature of 102.3 along with fluctuating heart rate and rigidity. - Exam Vitals: Temp Pulse Resp BP Pulse Ox 97.6 F 58 16 123/95 92 02/24/18 11:02 02/24/18 11:02 02/24/18 11:02 02/24/18 11:02 02/24/18 11:02 Exam: General: cachectic female with functional quadriplegia, somnolent, lying in bed Skin: Warm and supple Chest: Normal thoracic expansion. Normal breath sounds. Clear to auscultation anterolaterally Heart: Normal S1 & S2; tachycardic; rhythmic. No rubs or murmurs. Abdomen: Rigid, nontender Extremities: functional quadriplegia+, upper extremity and oral tremors, now subsided; rigid upper extremities; Neurological: altered and somnolent; B/L LE weakness and feet deformities - Assessment and Plan (1) Neuroleptic malignant syndrome Current Visit: Yes Status: Suspected Assessment and Plan: Patient has significant leukocytosis, fever, rigidity and altered mental status. She is noted to be on Haldol, olanzapine and trazodone at the [facility], which could be contributing. These medications are currently on hold. Neurology and psychiatric consulted. Discussed with neurology. We will give a dose of IV dantrolene. Neurology recommends checking MRI brain and EEG. Aggressive supportive care with IV hydration, when necessary antipyretics and cooling blankets. High risk for complications. Patient will be transferred to stepdown unit for closer monitoring. (2) Acute kidney injury superimposed on chronic kidney disease Current Visit: Yes Status: Acute Assessment and Plan: Patient probably does not have chronic kidney disease, noted to have normal serum creatinine in the past. Serum creatinine currently noted to be worsening , 1.47 today. Continue IV hydration and monitor closely. Avoid new nephrotoxic agents. Monitor urine output closely. (3) Essential hypertension Current Visit: Yes Status: Chronic (4) DVT prophylaxis Current Visit: Yes Status: Acute Assessment and Plan: On subcutaneous heparin. (5) HCAP (healthcare-associated pneumonia) Current Visit: Yes Status: Acute Assessment and Plan: CT angiogram of chest shows bilateral pulmonary infiltrates. Suspected aspiration. Blood cultures so far negative. Continue broad-spectrum IV antibiotics-vancomycin, Zosyn and azithromycin. Patient is currently kept nothing by mouth. 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 Patient's condition discussed with her parents yesterday evening, did not seem to know a lot about her medical diagnosis, she seems to have been in extended care facility at least for the last 5-6 months per previous discharge summary, but they are not sure about the duration. (6) Constipation Current Visit: Yes Status: Acute Assessment and Plan: Noted to have significant stool burden. Did have large bowel movements following enema. (7) Sepsis Current Visit: Yes Status: Suspected Assessment and Plan: Unclear if this is true sepsis. Presented with leukocytosis, mild tachypnea and minimal troponin leak. Could be secondary to neuroleptic malignant syndrome. Follow-up cultures and continue IV antibiotics as above. (8) Hypothyroidism Current Visit: Yes Status: Chronic (9) Schizophrenia Current Visit: Yes Status: Chronic (10) Tardive dyskinesia Current Visit: Yes Status: Chronic Assessment and Plan: Patient has chronic significant history of tardive dyskinesia with extensive head, perioral and upper extremity tremors. She was supposed to follow with psychiatry and neurology since previous discharge, family unaware of follow-ups. - Time Spent with Patient Total time spent is greater than 50% in coordination of care (as documented) at patient's floor/unit and/or counseling patient: Plan of Care Discussed with: school plant consultant Internal Medicine: Result - Labs CBC & Chem 7: 02/24/18 03:55 02/24/18 03:55 Labs: Short CBC 02/24/18 Range/Units 03:55 WBC 22.3 H D (4.3-11.1) K/mcL Hgb 8.7 L (11.5-15.4) g/dL Hct 26.8 L (35.3-44.9) % Plt Count 198 (140-400) K/mcL Neutrophils # 19.0 H (1.6-8.9) K/mcL BMP 02/24/18 03:55 Sodium 135 L Potassium 4.9 Chloride 107 Carbon Dioxide 19 L BUN 46 H Creatinine 1.94 H Glucose 148 H Calcium 8.7 Liver Function 02/24/18 Range/Units 03:55 Total Bilirubin 0.4 (0.3-1.0) mg/dL Direct Bilirubin 0.2 (0.0-0.2) mg/dL AST 156 H (13-39) Units/L ALT 124 H (7-52) Units/L Alkaline Phosphatase 255 H (34-104) Units/L Albumin 3.1 L (3.5-5.7) g/dL - ABG Interpretation ABG results: PT/INR, D-dimer PT 13.6 Seconds (9.4-12.1) H 02/22/18 21:03 D-Dimer 793 ng/mLFEU (0-500) H 02/22/18 21:03 Consult Discharge Plan - Plan Referrals: Jimenez Zavala MD [Primary Care Provider] - (6) Constipation Qualifiers: Constipation type: drug induced constipation Qualified Code(s): K59.03 - Drug induced constipation (7) Sepsis Qualifiers: Sepsis type: sepsis due to unspecified organism Qualified Code(s): A41.9 - Sepsis, unspecified organism (8) Hypothyroidism Qualifiers: Hypothyroidism type: unspecified Qualified Code(s): E03.9 - Hypothyroidism, unspecified (9) Schizophrenia Qualifiers: Schizophrenia type: unspecified Qualified Code(s): F20.9 - Schizophrenia, unspecified
--- NOTE | 2018-02-24 15:11 | EEG/EMG/Oth Biometrics Report ---
EEG Procedure Report Date of procedure: 02/24/18 EEG Procedure: Routine EEG Procedure Note: This EEG was acquired with standard international 10-20 system with EKG recording. The background EEG activity was characterized by the presence of posterior dominant beta activity, records largely contaminated by diffuse EMT activity. During periods where EMG activity was less prominent, background activity appears symmetrical and reactive. Sleep stages were not identified during this tracing. Extensive beta activity noted. There are no electrographic seizures identified during this tracing. There are no epileptiform discharges or focal slowing noted during this recording. Photic stimulation produced no abnormalities. Hyperventilation procedure was not performed. EKG tracing showed frequent PVC's, occurring after every sinus beat. Extensive beta activity seen diffusely during the study. Impression: This is essentially a normal awake and drowsy EEG. Extensive beta can be the results of medication effects including those from benzo and phenobarbital. EEG record significantly contaminated by EMG/muscular activity. No electrographic seizures or EDs noted. Clinical Correlation: Normal EEGs, however, do not exclude epilepsy. Clinical correlation is advised.
--- NOTE | 2018-02-24 16:03 | Neurology - Consult Note ---
Date of Encounter: 02/25/18 Time of Encounter: 11:00 Assessment and Plan (1) Altered mental status Current Visit: Yes Status: Acute Patient with significant psychiatric disorder, on snf antipsychotic therapy, with tardive dyskinesis, Parkinsonism who developed acute onset of mental status changes. She does have baseline Parkinson features including tardive tremors, muscle rigidity as baseline features and some of the symptoms and signs worsened at this time, with development of fever, more significant muscle rigidity, elevated WBC without source of infection, abnormal renal function and hepatic enzymes and due to her use of haldol the major concern besides new onset of [employer]SPORTER [employer]IVER pathology would NMS and or simply as worsening encephalopathy. She is actually alert and able to follow simple commands therefore i do not believe she is in subclinical status. an EEG was completed and also showed no abnormality except diffuse beta activity which is likely the result of benzodiazepam use. So, will recommend; 1. Obtain MRI of brain without contrast. 2. Will recommend hold off the use of haldol until her mental status or medical conditions stabilize and then psychiastric consultation may be needed to see whether she may benefit from reduced dose or other types of atypical antipsychotic. 3. patient used to be on benzo in the form of clonozepam regularly therefore acute benzo withdrawal should be avoided. 4. Unclear of the patient's seizure type and she used to be on high dose of topiramate for mood disorder. for now agree with keppra 1000mg bid. She is not having subclinical seizures per EEG. She has beenon amantadine, and other antidepressant and austedo in the past. Some of them may help with tremors but at this time would agree to hold them off until medical conditions improve. Please continue medical and supportive care. Total time spent in the case is approximately 70 minutes. Qualifiers: Altered mental status type: somnolence Qualified Code(s): R40.0 - Somnolence History of Present Illness Chief complaint: altered mental status HPI: Ms. Mendoza is a 37 year old female with PMH significant for schizophrenia, with snf exposure to antipsychotic therapy, history of tardive dyskinesis, chronic migraines, bipolar disorder, anorexia, chronic pain, asthma smoker, failure to thrive who presented to ER due to altered mental status. Patient known to neurology service and was last seen about one year ago for her migraine , tardive dyskinesis, and cervical dystonia. she resides in [facility] now. She was noticed to have altered mental status therefore she was admitted to medical floor. She has fever spikes, significant rigidity, and also over the night she was witnessed to have 'seizure like activity.' but no tongue biting or urinary incontinence were reported. She has known refractory tardive dyskinesis involving limbs and body so she has some shaking activity that may be masked as seizure activity. She has seizure disorder listed as one of her medical conditions but i am not aware of her having seizure, since the last few years that i have seen her. Patient has been on multiple psychotrophic medications, and was recently evaluated by her psychiatrist. She used to take seroquel and now she is on Haldol. Not sure how long she was on Haldol and whether there was any changes in the dosage. She used to take clonozapema tid on daily basis, along with other psychotrophic medications including escitalopram, trazadone, gabapentin, amantadine and also austedo, which is used to treat tardive dyskinesis. Patient has developed fever spikes, still altered and has tremors resembling tardive dyskinesia, has diffuse muscle rigidity, she is however able to follow simple commands and is able to show me two fingers to the right hand when told so. She is able to squeeze hand also, when asked. No focal weakness noted. Past Med Surg Social Fam HX - Past Medical History Medical history: arthritis, asthma, COPD, GERD, hypertension, migraine, osteoporosis, seizures, thyroid disease, syncope, other Additional medical history: PARKINSONS Psychiatric history: schizophrenia - Past Surgical History Surgical History: orthopedic, other, sinus surgery, other Additional surgical history: KNEE SURGERY - Social History Smoking Status: Unknown if ever smoked Smokeless Tobacco Status: No Alcohol use: unknown Drug use: unknown - Family History Father Living Status: Mother Daughter Family Member Ethnicity: Non- Mother Family Member Ethnicity: Non- Living Status: Still Living Hx Family Respiratory Disorders: No Hx Family Cancer: No Medications and Allergies Omeprazole [PriLOSEC] 20 mg PO DAILY 07/28/15 [History] Levothyroxine [Synthroid] 125 mcg PO QAM 11/30/15 [History] Amantadine [Symmetrel] 100 mg PO QID 07/09/17 [History] Topiramate [Topamax] 200 mg PO TID 07/09/17 [History] traZODone [TraZODone] 50 mg PO HS PRN 07/09/17 [History] Acetaminophen [Tylenol] 650 mg PO Q8HR PRN 02/23/18 [History] Ascorbic Acid [Vitamin C] 250 mg PO DAILY 02/23/18 [History] Calcium Citrate 950 mg PO DAILY 02/23/18 [History] Cyanocobalamin (Vitamin B-12) [Vitamin B-12] 100 mcg PO DAILY 02/23/18 [History] Docusate Sodium [Colace] 100 mg PO BID 02/23/18 [History] Ergocalciferol (VITAMIN D2) [Vitamin D2] 50,000 unit PO QWEEK 02/23/18 [History] Folic Acid 1 mg PO DAILY 02/23/18 [History] Gabapentin [Neurontin] 1,200 mg PO 0800 02/23/18 [History] Gabapentin [Neurontin] 900 mg PO 1400,2000 02/23/18 [History] Haloperidol [Haldol] 1 mg PO BID 02/23/18 [History] HydrOXYzine 10 mg PO Q6H PRN 02/23/18 [History] LORazepam [Ativan] 0.5 mg PO TID PRN 02/23/18 [History] Loratadine [Claritin] 10 mg PO DAILY 02/23/18 [History] Magnesium Oxide [Mgo] 400 mg PO BID 02/23/18 [History] Melatonin 6 mg PO HS PRN 02/23/18 [History] Mirtazapine [Remeron] 15 mg PO HS 02/23/18 [History] Multivitamin [One Daily Multivitamin] 1 tab PO DAILY 02/23/18 [History] OLANZapine [Zyprexa] 7.5 mg PO Q12H 02/23/18 [History] Ondansetron ODT [Zofran ODT] 4 mg SL Q6HR PRN 02/23/18 [History] Polyethylene Glycol 3350 [MiraLAX] 17 gm PO DAILY 02/23/18 [History] Tramadol HCl [Ultram] 50 mg PO Q6H PRN 02/23/18 [History] Zinc Sulfate [Zinc Sulfate] 220 mg PO DAILY 02/23/18 [History] clonazePAM [Klonopin] 1 mg PO TID PRN 02/23/18 [History] 3 Allergy/AdvReac Type Severity Reaction Status Date / Time aripiprazole [From Abilify] Allergy Difficulty Verified 02/23/18 07:51 Breathing aspirin Allergy Difficulty Verified 02/23/18 07:51 Breathing ibuprofen Allergy Difficulty Verified 02/23/18 07:51 Breathing latex Allergy Difficulty Verified 02/23/18 07:51 Breathing metronidazole [From Flagyl] Allergy Difficulty Verified 02/23/18 07:51 Breathing naproxen [From Aleve] Allergy Difficulty Verified 02/23/18 07:51 Breathing Sulfa (Sulfonamide AdvReac Vomiting Verified 02/23/18 07:51 Antibiotics) pea Allergy Unknown unsure Uncoded 02/23/18 07:51 All Systems: The remainder of the systems were reviewed and are negative Physical Examination - Vital Signs Vital Signs: Initial Vital Signs Temp Pulse Resp BP Pulse Ox 99 F 80 20 119/58 95 02/22/18 20:50 02/22/18 20:50 02/22/18 20:50 02/22/18 20:50 02/22/18 20:50 - Constitutional General appearance: chronically ill (Emaciated, picture of failure to thrive and has lost weight compared to last known status) - Neurologic Sensorimotor examination: other (Difficult to assess due to altered mental status) Detailed motor examination: full strength in all major muscle groups, other ( Rigit bilaterally both upper and lower extremities, Able ot squeez hands bilaterally, Bradykinetic, which is part of her baseline status. No focal weakness seen) Detailed sensory examination: intact (Unable to assess) Posture: other (Rigid with nuchal rigidity which has been her baseline condition , this is likely seconedary to Parkinsonsim drug induced.) Reflexes: Biceps: 1+, Triceps: 1+, Brachioradialis: 1+, Patella: 1+, Achilles: 1 + Mental Status Examination: awake, alert, lethargic, opens eyes to voice, makes eye contact, follows simple commands, localizes noxious stimulation, inattentive , cognitive impairment Cranial nerve examination: PERRL (Difficult to assess but pupiles are equal in sizes), EOMI (unable to assess), visual pimentel intact (Unable to assess), corneal reflexes brisk symmetrically, sensory to face intact, mastication intact , no facial asymmetry is present, no dysarthria (Unable to assess), hearing is intact symmetrically, soft palate elevates bilaterally upon phonation (Unable to assess), gag reflex intact, flexes SCM and trapezius muscles symmetrically with full power Results - Laboratory Findings CBC and BMP: 02/24/18 03:55 02/25/18 08:28 Abnormal lab findings: Abnormal lab results WBC 22.3 K/mcL (4.3-11.1) H D 02/24/18 03:55 RBC 2.79 M/mcL (3.82-4.97) L 02/24/18 03:55 Hgb 8.7 g/dL (11.5-15.4) L 02/24/18 03:55 Hct 26.8 % (35.3-44.9) L 02/24/18 03:55 RDW 15.7 % (11.5-14.5) H 02/24/18 03:55 Neutrophils # 19.0 K/mcL (1.6-8.9) H 02/24/18 03:55 PT 13.6 Seconds (9.4-12.1) H 02/22/18 21:03 APTT 37.0 Seconds (26.0-36.0) H 02/22/18 21:03 D-Dimer 793 ng/mLFEU (0-500) H 02/22/18 21:03 Sodium 135 mEq/L (136-145) L 02/24/18 03:55 Carbon Dioxide 19 mEq/L (23-29) L 02/24/18 03:55 BUN 46 mg/dL (6-20) H 02/24/18 03:55 Creatinine 1.94 mg/dL (0.60-1.20) H 02/24/18 03:55 Est GFR ( Amer) 35 (> 60) L 02/24/18 03:55 Est GFR (Non-Af Amer) 29 (> 60) L 02/24/18 03:55 Glucose 148 mg/dL (70-105) H 02/24/18 03:55 AST 156 Units/L (13-39) H 02/24/18 03:55 ALT 124 Units/L (7-52) H 02/24/18 03:55 Alkaline Phosphatase 255 Units/L (34-104) H 02/24/18 03:55 Troponin I 0.07 ng/mL (< 0.04) H* 02/23/18 09:39 Serum Total Protein 5.3 g/dL (6.4-8.9) L 02/24/18 03:55 Albumin 3.1 g/dL (3.5-5.7) L 02/24/18 03:55 Globulin 2.2 g/dL (2.4-3.5) L 02/24/18 03:55 Urine Clarity Turbid (Clear) A 02/22/18 21:19 Urine Ketones Trace mg/dL (Negative) H 02/22/18 21:19 Ur Leukocyte Esterase Small (Negative) H 02/22/18 21:19 Urine Microscopic RBC 5-15 per hpf (0-3) H 02/22/18 21:19 Urine Microscopic WBC 5-15 per hpf (0-3) H 02/22/18 21:19 Ur Squamous Epith Cells Many per lpf (None-Few) H 02/22/18 21:19 Ur Culture Indicated? NO. (NO) A 02/22/18 21:19 - Diagnostic Findings Additional findings: CT OF THE HEAD WITHOUT CONTRAST 02/22/2018 11:07 pm TECHNIQUE: CT of the head was performed without the administration of intravenous contrast. Dose modulation, iterative reconstruction, and/or weight based adjustment of the mA/kV was utilized to reduce the radiation dose to as low as reasonably achievable. COMPARISON: 09/08/2017 HISTORY: ORDERING SYSTEM PROVIDED HISTORY: AMS FINDINGS: Mildly limited by motion degradation. BRAIN/VENTRICLES: There is no acute intracranial hemorrhage, mass effect or midline shift. No abnormal extra-axial fluid collection. The wise-white differentiation is maintained without evidence of an acute infarct. There is no evidence of hydrocephalus. ORBITS: The visualized portion of the orbits demonstrate no acute abnormality. SINUSES: Mastoid air cells are clear. Minimal air-fluid level in the sphenoid sinus. SOFT TISSUES/SKULL: No acute abnormality of the visualized skull or soft tissues. CT/CT head/brain wo con IMPRESSION: The examination is slightly limited by motion degradation. Otherwise no definite acute intracranial findings. Minimal sphenoid sinusitis. D/ / 02/22/2018 23:32:39 Levi Colón MD / yadiel Interpreting Provider: Levi Colón MD Consult Discharge Plan - Plan Referrals: Jimenez Zavala MD [Primary Care Provider] -
[2018-02-24] MEDS: 0.9 % Sodium Chloride 1,000 ML IVC SCH (16:30)
--- NOTE | 2018-02-24 17:26 | Consult Note ---
Date of Encounter: 02/24/18 Time of Encounter: 16:00 Assessment & Recommendation (1) Movement disorder Current visit: No Status: Chronic History of Present Illness Patient: known to practice within the last 3 years Requesting Physician: Joyce Cam MD Reason for consult: I think that I am ghost History of present illness: Ms. Mendoza is a 37 year old female This patient is known to the psychiatry service. The first time that I am seeing her and the question is to rule out neuroleptic malignant syndrome. Neuroleptic malignant syndrome is a condition associated with altered mental status rigidity autonomic disturbance fever. Additional laboratory studies may show leukocytosis low serum iron and high CPK. In this case the patient has had most of the clinical features of neuroleptic malignant syndrome. In this case Dr. PLATA as recommended that Haldol not be given. This is because of his concern. Meanwhile the patient presents with some unusual statements she is not very communicative and has received Ativan prior to the MRI. Ativan is a reasonable treatment for neuroleptic malignant syndrome. Stopping antipsychotics is a reasonable treatment for neuroleptic malignant syndrome. The patient had an EEG which reveals beta activity but not EEG slowing or seizure activity. This argues that the patient does not have an encephalopathic process. It argues that she does not have neuroleptic malignant syndrome. Meanwhile the MRI shows a hyperintensity in the Annel. This type of lesion may present with some of the features of neuroleptic malignant syndrome. On examination the patient is diminished and her response she is thin with him moderate rigidity. She has expressed and tremors she is not febrile. And her vital signs are more stable. CC: Joyce Cam MD Past Med Surg Social Fam HX - Past Medical History Medical history: arthritis, asthma, COPD, GERD, hypertension, migraine, osteoporosis, seizures, thyroid disease, syncope, other - Past Psychiatric History Psychiatric history: Reports: schizophrenia Family psychiatric history: Unknown Family History of Suicide: Unknown - Past Surgical History Surgical History: orthopedic, other, sinus surgery, other - Social History Smoking Status: Unknown if ever smoked Smokeless Tobacco Status: No Alcohol use: unknown Drug use: unknown Occupational status: disabled Current living situation: [facility] Activity Level: Bed bound, Mostly sedentary Recent Out of Country Travel Within the Last 8 Weeks: No Exposure or Possible Exposure to Illness During Travel: No - Family History Father Living Status: Mother Daughter Family Member Ethnicity: Non- Mother Family Member Ethnicity: Non- Living Status: Still Living Hx Family Respiratory Disorders: No Hx Family Cancer: No Medications & Allergies Omeprazole [PriLOSEC] 20 mg PO DAILY 07/28/15 [History] Levothyroxine [Synthroid] 125 mcg PO QAM 11/30/15 [History] Amantadine [Symmetrel] 100 mg PO QID 07/09/17 [History] Topiramate [Topamax] 200 mg PO TID 07/09/17 [History] traZODone [TraZODone] 50 mg PO HS PRN 07/09/17 [History] Acetaminophen [Tylenol] 650 mg PO Q8HR PRN 02/23/18 [History] Ascorbic Acid [Vitamin C] 250 mg PO DAILY 02/23/18 [History] Calcium Citrate 950 mg PO DAILY 02/23/18 [History] Cyanocobalamin (Vitamin B-12) [Vitamin B-12] 100 mcg PO DAILY 02/23/18 [History] Docusate Sodium [Colace] 100 mg PO BID 02/23/18 [History] Ergocalciferol (VITAMIN D2) [Vitamin D2] 50,000 unit PO QWEEK 02/23/18 [History] Folic Acid 1 mg PO DAILY 02/23/18 [History] Gabapentin [Neurontin] 1,200 mg PO 0800 02/23/18 [History] Gabapentin [Neurontin] 900 mg PO 1400,2000 02/23/18 [History] Haloperidol [Haldol] 1 mg PO BID 02/23/18 [History] HydrOXYzine 10 mg PO Q6H PRN 02/23/18 [History] LORazepam [Ativan] 0.5 mg PO TID PRN 02/23/18 [History] Loratadine [Claritin] 10 mg PO DAILY 02/23/18 [History] Magnesium Oxide [Mgo] 400 mg PO BID 02/23/18 [History] Melatonin 6 mg PO HS PRN 02/23/18 [History] Mirtazapine [Remeron] 15 mg PO HS 02/23/18 [History] Multivitamin [One Daily Multivitamin] 1 tab PO DAILY 02/23/18 [History] OLANZapine [Zyprexa] 7.5 mg PO Q12H 02/23/18 [History] Ondansetron ODT [Zofran ODT] 4 mg SL Q6HR PRN 02/23/18 [History] Polyethylene Glycol 3350 [MiraLAX] 17 gm PO DAILY 02/23/18 [History] Tramadol HCl [Ultram] 50 mg PO Q6H PRN 02/23/18 [History] Zinc Sulfate [Zinc Sulfate] 220 mg PO DAILY 02/23/18 [History] clonazePAM [Klonopin] 1 mg PO TID PRN 02/23/18 [History] 3 Allergy/AdvReac Type Severity Reaction Status Date / Time aripiprazole [From Abilify] Allergy Difficulty Verified 02/23/18 07:51 Breathing aspirin Allergy Difficulty Verified 02/23/18 07:51 Breathing ibuprofen Allergy Difficulty Verified 02/23/18 07:51 Breathing latex Allergy Difficulty Verified 02/23/18 07:51 Breathing metronidazole [From Flagyl] Allergy Difficulty Verified 02/23/18 07:51 Breathing naproxen [From Aleve] Allergy Difficulty Verified 02/23/18 07:51 Breathing Sulfa (Sulfonamide AdvReac Vomiting Verified 02/23/18 07:51 Antibiotics) pea Allergy Unknown unsure Uncoded 02/23/18 07:51 Review of Systems Psychiatric: Reports: anxiety, difficulty concentrating Psychiatry Exam - Constitutional Vitals: Temp Pulse Resp BP Pulse Ox 97.7 F 63 16 106/65 85 02/24/18 16:54 02/24/18 16:54 02/24/18 16:54 02/24/18 16:54 02/24/18 16:54 General appearance: disheveled, thin - Musculoskeletal Strength & Tone: rigid - Psychiatric Patient Orientation: Yes Person, Yes Time, Yes Place Level of alertness: Sedated Behavior: nervous Psychomotor activity: Slowed Eye Contact: Minimal Contact Mood Description: Anxious Affect description: anxious Speech Volume: Soft/Quiet Speech pattern: normal rhythm, impoverished Thought Process: Intact Thought Content: Yes Overt delusions Attention Span Ability: Unable to Sustain Attention Patient Reliability: Not Reliable Historian Judgment: Limited Insight: Minimal Results - Labs Labs: Laboratory Last Values WBC 22.3 K/mcL (4.3-11.1) H D 02/24/18 03:55 RBC 2.79 M/mcL (3.82-4.97) L 02/24/18 03:55 Hgb 8.7 g/dL (11.5-15.4) L 02/24/18 03:55 Hct 26.8 % (35.3-44.9) L 02/24/18 03:55 MCV 96.1 fL (83.0-100.0) 02/24/18 03:55 MCH 31.2 pg (28.0-33.3) 02/24/18 03:55 MCHC 32.5 g/dL (31.6-35.5) 02/24/18 03:55 RDW 15.7 % (11.5-14.5) H 02/24/18 03:55 Plt Count 198 K/mcL (140-400) 02/24/18 03:55 MPV 11.1 fL (9.4-12.4) 02/24/18 03:55 Immature Gran % 1.4 % (0-4) 02/24/18 03:55 Seg Neutrophils % 85.4 % 02/24/18 03:55 Lymphocytes % 8.3 % 02/24/18 03:55 Monocytes % 4.7 % 02/24/18 03:55 Eosinophils % 0.0 % 02/24/18 03:55 Basophils % 0.2 % 02/24/18 03:55 Neutrophils # 19.0 K/mcL (1.6-8.9) H 02/24/18 03:55 Lymphocytes # 1.9 K/mcL (0.6-4.6) 02/24/18 03:55 Monocytes # 1.1 K/mcL (0.0-1.3) 02/24/18 03:55 Eosinophils # 0.0 K/mcL (0.0-0.6) 02/24/18 03:55 Basophils # 0.0 K/mcL (0.0-0.2) 02/24/18 03:55 PT 13.6 Seconds (9.4-12.1) H 02/22/18 21:03 INR 1.2 02/22/18 21:03 APTT 37.0 Seconds (26.0-36.0) H 02/22/18 21:03 D-Dimer 793 ng/mLFEU (0-500) H 02/22/18 21:03 Sodium 135 mEq/L (136-145) L 02/24/18 03:55 Potassium 4.9 mEq/L (3.5-5.1) 02/24/18 03:55 Chloride 107 mEq/L (98-107) 02/24/18 03:55 Carbon Dioxide 19 mEq/L (23-29) L 02/24/18 03:55 BUN 46 mg/dL (6-20) H 02/24/18 03:55 Creatinine 1.94 mg/dL (0.60-1.20) H 02/24/18 03:55 Est GFR ( Amer) 35 (> 60) L 02/24/18 03:55 Est GFR (Non-Af Amer) 29 (> 60) L 02/24/18 03:55 BUN/Creatinine Ratio 24 (6-26) 02/24/18 03:55 Glucose 148 mg/dL (70-105) H 02/24/18 03:55 Calculated Osmolality 295 (280-300) 02/24/18 03:55 Lactic Acid 1.0 mmol/L (0.5-2.2) 02/24/18 03:55 Calcium 8.7 mg/dL (8.6-10.3) 02/24/18 03:55 Magnesium 2.2 mg/dL (1.6-2.6) 02/23/18 03:53 Total Bilirubin 0.4 mg/dL (0.3-1.0) 02/24/18 03:55 Direct Bilirubin 0.2 mg/dL (0.0-0.2) 02/24/18 03:55 Indirect Bilirubin 0.2 mg/dL (0.0-1.2) 02/24/18 03:55 AST 156 Units/L (13-39) H 02/24/18 03:55 ALT 124 Units/L (7-52) H 02/24/18 03:55 Alkaline Phosphatase 255 Units/L (34-104) H 02/24/18 03:55 Creatine Kinase 180 Units/L (30-223) 02/24/18 03:55 Troponin I 0.07 ng/mL (< 0.04) H* 02/23/18 09:39 Serum Total Protein 5.3 g/dL (6.4-8.9) L 02/24/18 03:55 Albumin 3.1 g/dL (3.5-5.7) L 02/24/18 03:55 Globulin 2.2 g/dL (2.4-3.5) L 02/24/18 03:55 Albumin/Globulin Ratio 1.4 (1.1-2.2) 02/24/18 03:55 Urine Color Yellow (Yellow) 02/22/18 21:19 Urine Clarity Turbid (Clear) A 02/22/18 21:19 Urine pH 6.5 pH Units (5.0-8.0) 02/22/18 21:19 Ur Specific [place] 1.015 (1.010-1.025) 02/22/18 21:19 Urine Protein Trace mg/dL (Neg-Trace) 02/22/18 21:19 Urine Glucose (UA) Normal mg/dL (Normal) 02/22/18 21: Urine Ketones Trace mg/dL (Negative) H 02/22/18 21:19 Urine Blood Negative (Negative) 02/22/18 21:19 Urine Nitrite Negative (Negative) 02/22/18 21:19 Urine Bilirubin Negative (Negative) 02/22/18 21:19 Urine Urobilinogen Normal mg/dL (Normal) 02/22/18 21:19 Ur Leukocyte Esterase Small (Negative) H 02/22/18 21:19 Urine Microscopic RBC 5-15 per hpf (0-3) H 02/22/18 21:19 Urine Microscopic WBC 5-15 per hpf (0-3) H 02/22/18 21:19 Ur Squamous Epith Cells Many per lpf (None-Few) H 02/22/18 21:19 Urine Bacteria None Seen per hpf (None-Few) 02/22/18 21:19 Hyaline Casts Few per lpf (None-Few) 02/22/18 21:19 Ur Culture Indicated? NO. (NO) A 02/22/18 21:19 - Impressions Impressions Brain MRI 02/24/18 09:03 IMPRESSION: There is diffuse high signal in the central annel. This is new since the previous MRI from 2016. The exact etiology of the abnormality is uncertain. Differential diagnosis includes a pontine neoplasm, central pontine myelinolysis, a demyelinating process, or metabolic diseases as discussed above. Postcontrast images could further evaluate. D/ /24/2018 16:03:33 Sada Burks MD / kiel Interpreting Provider: Sada Burks MD Consult Discharge Plan - Plan Referrals: Jimenez Zavala MD [Primary Care Provider] -
[2018-02-25] MEDS: *HR* LORazepam 2 MG/ML VIAL IVP PRN ×5 (00:03→23:53)
[2018-02-25] MEDS: 0.9 % Sodium Chloride 1,000 ML IVC SCH ×2 (02:38→16:14)
[2018-02-25] MEDS: Azithromycin 500 MG in D5% in Water 250 ML IVPB SCH (02:39)
[2018-02-25] MEDS: *HR* Heparin 5,000 UNIT/ML VIAL SQ SCH ×2 (05:25→17:48)
--- NOTE | 2018-02-25 05:34 | Event Note ---
Date of Encounter: 02/25/18 Time of Encounter: 05:00 Called to patient's room regarding bilateral dilated pupils and large white mass in the patient's mouth. Pupils reactive to light, no other new neurological deficit noted. Patient had not received any new meds this evening or this morning. Patient also found to have large white mass on the inside of her left check that could not be removed with suction or digital manipulation. Could consider ENT consult for further evaluation. Will continue to monitor pupils. Patient at apparently baseline status as per nursing staff.
[2018-02-25] MEDS: Piperacillin/Tazobactam 3.375 GM in 0.9 % Sodium Chloride Mini Bag 100 ML IVPB SCH ×3 (08:44→23:54)
[2018-02-25] MEDS ORDERED: Aminoglycoside Consult 1 EACH MC ONE (08:52)
[2018-02-25 09:09] LABS: Hematocrit 28.3 % (35.3-44.9); Mean Corpuscular HGB Conc 31.8 g/dL (31.6-35.5); Mean Corpuscular Hemoglobin 30.4 pg (28.0-33.3); Mean Corpuscular Volume 95.6 fL (83.0-100.0); Mean Platelet Volume 11.8 fL (9.4-12.4); Platelet Count 199 K/mcL (140-400); Red Blood Count 2.96 M/mcL (3.82-4.97); Red Cell Distribution Width 15.9 % (11.5-14.5)
[2018-02-25 09:23] LABS: Calcium 8.5 mg/dL (8.6-10.3); Potassium 4.4 mEq/L (3.5-5.1)
[2018-02-25] MEDS: Bisacodyl 10 MG RECTAL SUPPOSITORY RC SCH (09:46)
[2018-02-25 10:01] LABS: Lymphocytes # 3.1 K/mcL (0.6-4.6); Neutrophils # 27.5 K/mcL (1.6-8.9); Platelet Estimate Normal (Normal)
--- NOTE | 2018-02-25 11:04 | Neurology Progress Note ---
Date of Encounter: 02/25/18 Time of Encounter: 10:30 Assessment and Plan (1) Altered mental status Current Visit: Yes Status: Acute Patient's mental status significantly improved. She is more alert and reactive follows simple commands appropriately. no focal neurological deficits seen. MRI of brain findings of high DW signal changes at the brain stem is a nonspecific finding. she has no history of brain stem mass, and the brain stem looks homogenously hyperintense and pattern not consistent with brain stem mass , and the signal change is not centrally located and clinically she has no history of hyponatremia with rapid correction therefore i do not believe this is secondary to central pontine myelinosis. I would not recommend MRI of brain with contrast due to her renal insufficiency. Rather i would recommend repeat MRI of brain without contrast in a day or two, since clinically she has been improving. She still has abnormal laboratory studies including elevated WBC, which could be the result of NMS or underlying infection. CPK has been normal but liver function test has been abnormal. Renal function slightly improved. Please continue medical and supportive care. Will follow up tomorrow morning. Qualifiers: Altered mental status type: somnolence Qualified Code(s): R40.0 - Somnolence Subjective Principal diagnosis: altered mental status Interval history: Patient seen and examined. She is doing better today and she is more alert and reactive. Follows commands and answer simple questions appropriately. Denies any headaches. Nuchal rigidity less significant. She no longer spikes fever. She was given ativan last night and this morning she has remained alert and stable. MRI of brain without contrast completed and did show diffuse DW signal changes in the whole brain stem area which could result from different etiologies. This appears to be nonspecific finding. Objective - Constitutional Vitals: Temp Pulse Resp BP Pulse Ox 97.8 F 72 19 94/80 99 02/25/18 08:10 02/25/18 08:10 02/25/18 08:10 02/25/18 08:10 02/25/18 08:10 - Neurological Exam Sensorimotor examination: Present: other (Grossly intact) Motor Examination: Present: full strength in all major muscle groups, other ( squeeze hands bilaterally with increased muscle tone and tardive tremors noted. Rigid in her legs. ) Sensation intact: Present: intact (Grossly intact) Posture: Present: other (Less rigid today, nuchal rigidty also improved. ) Reflexes: Biceps: 2+, Triceps: 2+, Brachioradialis: 2+, Patella: 2+, Achilles: 2 + Mental Status Examination: Present: awake, alert, oriented to person, follows commands appropriately, answers questions appropriately, opens eyes to voice, makes eye contact, follows simple commands, localizes noxious stimulation, inattentive, cognitive impairment Cranial nerve examination: Present: PERRL (Pupils are equal in sizes and reactive), EOMI (Full), corneal reflexes brisk symmetrically, mastication intact , no facial asymmetry is present, no dysarthria (Difficult to assess), hearing is intact symmetrically, soft palate elevates bilaterally upon phonation ( Unable to assess), gag reflex intact, flexes SCM and trapezius muscles symmetrically with full power, tongue protrudes midline Results - Laboratory Findings CBC and BMP: 02/25/18 08:02/25/18 08: Abnormal lab findings: Abnormal lab results WBC 30.5 K/mcL (4.3-11.1) H* 02/25/18 08: RBC 2.96 M/mcL (3.82-4.97) L 02/25/18 08: Hgb 9.0 g/dL (11.5-15.4) L 02/25/18 08: Hct 28.3 % (35.3-44.9) L 02/25/18 08: RDW 15.9 % (11.5-14.5) H 02/25/18 08: Neutrophils # 27.5 K/mcL (1.6-8.9) H 02/25/18 08: PT 13.6 Seconds (9.4-12.1) H 02/22/18 21:03 APTT 37.0 Seconds (26.0-36.0) H 02/22/18 21:03 D-Dimer 793 ng/mLFEU (0-500) H 02/22/18 21:03 Chloride 110 mEq/L (98-107) H 02/25/18 08: Carbon Dioxide 19 mEq/L (23-29) L 02/25/18 08:28 BUN 53 mg/dL (6-20) H 02/25/18 08:28 Creatinine 1.69 mg/dL (0.60-1.20) H 02/25/18 08:28 Est GFR ( Amer) 41 (> 60) L 02/25/18 08:28 Est GFR (Non-Af Amer) 34 (> 60) L 02/25/18 08:28 BUN/Creatinine Ratio 31 (6-26) H 02/25/18 08:28 Glucose 69 mg/dL (70-105) L 02/25/18 08:28 Calculated Osmolality 303 (280-300) H 02/25/18 08:28 Calcium 8.5 mg/dL (8.6-10.3) L 02/25/18 08:28 Iron 23 mcg/dL (50-170) L 02/25/18 08:28 % Saturation 9 % (15-50) L 02/25/18 08:28 Transferrin 193 mg/dL (203-362) L 02/25/18 08:28 Ferritin 1240 ng/mL (10-120) H 02/25/18 08:28 AST 156 Units/L (13-39) H 02/24/18 03:55 ALT 124 Units/L (7-52) H 02/24/18 03:55 Alkaline Phosphatase 255 Units/L (34-104) H 02/24/18 03:55 Troponin I 0.07 ng/mL (< 0.04) H* 02/23/18 09:39 Serum Total Protein 5.3 g/dL (6.4-8.9) L 02/24/18 03:55 Albumin 3.1 g/dL (3.5-5.7) L 02/24/18 03:55 Globulin 2.2 g/dL (2.4-3.5) L 02/24/18 03:55 Urine Clarity Turbid (Clear) A 02/22/18 21:19 Urine Ketones Trace mg/dL (Negative) H 02/22/18 21:19 Ur Leukocyte Esterase Small (Negative) H 02/22/18 21:19 Urine Microscopic RBC 5-15 per hpf (0-3) H 02/22/18 21:19 Urine Microscopic WBC 5-15 per hpf (0-3) H 02/22/18 21:19 Ur Squamous Epith Cells Many per lpf (None-Few) H 02/22/18 21:19 Ur Culture Indicated? NO. (NO) A 02/22/18 21:19 Vancomycin Trough 25 mcg/mL (5-10) H 02/25/18 01:44 Consult Discharge Plan - Plan Referrals: Jimenez Zavala MD [Primary Care Provider] -
--- NOTE | 2018-02-25 12:46 | Internal Med Progress Note ---
Hospitalist Progress Note - Encounter Date of Encounter: 02/25/18 Time of Encounter: 09:00 - Subjective Interval History: Appears much better today; awake and alert, reports feeling well, able to tell me her name and ; knows she is in the hospital but cannot answer further questions; Pulled out NG tube later this morning; no fever spikes; HR stable; - Exam Vitals: Temp Pulse Resp BP Pulse Ox 98.6 F 73 18 123/94 96 02/25/18 11:14 02/25/18 11:14 02/25/18 11:14 02/25/18 11:14 02/25/18 11:14 Exam: General: cachectic female with functional quadriplegia, no acute distress, lying in bed Skin: Warm and supple Chest: Normal thoracic expansion. Clear to auscultation B/L; slightly decreased at left base Heart: Normal S1 & S2; tachycardic; rhythmic. No rubs or murmurs. Abdomen: Rigid, nontender Extremities: functional quadriplegia+, upper extremity and oral tremors, + Neurological: altered and somnolent; B/L LE weakness and feet deformities - Assessment and Plan (1) Neuroleptic malignant syndrome Current Visit: Yes Status: Suspected Assessment and Plan: Continues to have worsening leukocytosis, WBC at 30,000 today. However, shows significant clinical improvement with improved mental status and rigidity, no fever spikes. Serum creatinine kinase worsening but still within normal limits , at 197. Continue IV hydration. MRI brain shows diffuse high signal in the brainstem, could be neoplasm or central pontine myelin lysis or a demyelinating process; case discussed with neurology-recommend repeating noncontrast MRI in 1-2 days. EEG shows no evidence of seizures continue supportive care and current management.. hold Haldol, olanzapine and trazodone; psychiatric consult appreciated. (2) Acute kidney injury superimposed on chronic kidney disease Current Visit: Yes Status: Acute Assessment and Plan: Patient probably does not have chronic kidney disease, noted to have normal serum creatinine in the past. Serum creatinine currently improving, 1.69 today. Continue IV hydration and monitor closely. Avoid new nephrotoxic agents. Monitor urine output closely. (3) Essential hypertension Current Visit: Yes Status: Chronic (4) DVT prophylaxis Current Visit: Yes Status: Acute (5) HCAP (healthcare-associated pneumonia) Current Visit: Yes Status: Acute Assessment and Plan: CT angiogram of chest shows bilateral pulmonary infiltrates. Suspected aspiration. Blood cultures negative. Continue broad-spectrum IV antibiotics- Zosyn and azithromycin. Discontinue vancomycin. Patient is currently kept nothing by mouth. [employer] evaluation pending. Supportive care and supplemental oxygen. (6) Constipation Current Visit: Yes Status: Acute (7) Sepsis Current Visit: Yes Status: Suspected Assessment and Plan: Unclear if this is true sepsis. Presented with leukocytosis, mild tachypnea and minimal troponin leak. Could be secondary to neuroleptic malignant syndrome. Follow-up cultures and continue IV antibiotics as above. (8) Hypothyroidism Current Visit: Yes Status: Chronic (9) Schizophrenia Current Visit: Yes Status: Chronic (10) Tardive dyskinesia Current Visit: Yes Status: Chronic - Time Spent with Patient Total time spent is greater than 50% in coordination of care (as documented) at patient's floor/unit and/or counseling patient: Plan of Care Discussed with: consultant rn Internal Medicine: Result - Labs CBC & Chem 7: 02/25/18 08:28 02/25/18 08:28 Labs: Short CBC 02/25/18 Range/Units 08:28 WBC 30.5 H* (4.3-11.1) K/mcL Hgb 9.0 L (11.5-15.4) g/dL Hct 28.3 L (35.3-44.9) % Plt Count 199 (140-400) K/mcL Neutrophils # 27.5 H (1.6-8.9) K/mcL BMP 02/24/18 02/25/18 03:55 08:28 Sodium 135 L 140 Potassium 4.9 4.4 Chloride 107 110 H Carbon Dioxide 19 L 19 L BUN 46 H 53 H Creatinine 1.94 H 1.69 H Glucose 148 H 69 L Calcium 8.7 8.5 L Liver Function 02/24/18 Range/Units 03:55 Total Bilirubin 0.4 (0.3-1.0) mg/dL Direct Bilirubin 0.2 (0.0-0.2) mg/dL AST 156 H (13-39) Units/L ALT 124 H (7-52) Units/L Alkaline Phosphatase 255 H (34-104) Units/L Albumin 3.1 L (3.5-5.7) g/dL - ABG Interpretation ABG results: PT/INR, D-dimer PT 13.6 Seconds (9.4-12.1) H 02/22/18 21:03 D-Dimer 793 ng/mLFEU (0-500) H 02/22/18 21:03 - Impressions Impressions Brain MRI 02/24/18 09:03 IMPRESSION: There is diffuse high signal in the central [place]. This is new since the previous MRI from 2015. The exact etiology of the abnormality is uncertain. Differential diagnosis includes a pontine neoplasm, central pontine myelinolysis, a demyelinating process, or metabolic diseases as discussed above. Postcontrast images could further evaluate. D/ /24/2018 16:03:33 Sada Burks MD / [facility] Interpreting Provider: Sada Burks MD Consult Discharge Plan - Plan Referrals: Jimenez Zavala MD [Primary Care Provider] - (6) Constipation Qualifiers: Constipation type: drug induced constipation Qualified Code(s): K59.03 - Drug induced constipation (7) Sepsis Qualifiers: Sepsis type: sepsis due to unspecified organism Qualified Code(s): A41.9 - Sepsis, unspecified organism (8) Hypothyroidism Qualifiers: Hypothyroidism type: unspecified Qualified Code(s): E03.9 - Hypothyroidism, unspecified (9) Schizophrenia Qualifiers: Schizophrenia type: unspecified Qualified Code(s): F20.9 - Schizophrenia, unspecified
--- NOTE | 2018-02-25 14:43 | Consult Note ---
Date of Encounter: 02/25/18 Time of Encounter: 14:00 Assessment & Recommendation (1) Movement disorder Current visit: No Status: Chronic (2) Catatonic schizophrenia Current visit: Yes Status: Acute (3) Neuroleptic malignant syndrome Current visit: Yes Status: Acute History of Present Illness Patient: known to practice within the last 3 years Requesting Physician: Joyce Cam MD Reason for consult: neuroleptic malignant syndrome History of present illness: Ms. Mendoza is a 37 year old female CC: Joyce Cam MD Past Med Surg Social Fam HX - Past Medical History Source: old records reviewed Medical history: arthritis, asthma, COPD, GERD, hypertension, migraine, osteoporosis, seizures, thyroid disease, syncope, other - Past Psychiatric History Psychiatric history: Reports: schizophrenia Family psychiatric history: Unknown Family History of Suicide: Unknown - Past Surgical History Surgical History: orthopedic, other, sinus surgery, other - Social History Smoking Status: Unknown if ever smoked Smokeless Tobacco Status: No Alcohol use: unknown Drug use: unknown Occupational status: disabled Current living situation: [facility] Activity Level: Bed bound Recent Out of Country Travel Within the Last 8 Weeks: No Exposure or Possible Exposure to Illness During Travel: No - Family History Father Living Status: Mother Daughter Family Member Ethnicity: Non- Mother Family Member Ethnicity: Non- Living Status: Still Living Hx Family Respiratory Disorders: No Hx Family Cancer: No Medications & Allergies Omeprazole [PriLOSEC] 20 mg PO DAILY 07/28/15 [History] Levothyroxine [Synthroid] 125 mcg PO QAM 11/30/15 [History] Amantadine [Symmetrel] 100 mg PO QID 07/09/17 [History] Topiramate [Topamax] 200 mg PO TID 07/09/17 [History] traZODone [TraZODone] 50 mg PO HS PRN 07/09/17 [History] Acetaminophen [Tylenol] 650 mg PO Q8HR PRN 02/23/18 [History] Ascorbic Acid [Vitamin C] 250 mg PO DAILY 02/23/18 [History] Calcium Citrate 950 mg PO DAILY 02/23/18 [History] Cyanocobalamin (Vitamin B-12) [Vitamin B-12] 100 mcg PO DAILY 02/23/18 [History] Docusate Sodium [Colace] 100 mg PO BID 02/23/18 [History] Ergocalciferol (VITAMIN D2) [Vitamin D2] 50,000 unit PO QWEEK 02/23/18 [History] Folic Acid 1 mg PO DAILY 02/23/18 [History] Gabapentin [Neurontin] 1,200 mg PO 0800 02/23/18 [History] Gabapentin [Neurontin] 900 mg PO 1400,2000 02/23/18 [History] Haloperidol [Haldol] 1 mg PO BID 02/23/18 [History] HydrOXYzine 10 mg PO Q6H PRN 02/23/18 [History] LORazepam [Ativan] 0.5 mg PO TID PRN 02/23/18 [History] Loratadine [Claritin] 10 mg PO DAILY 02/23/18 [History] Magnesium Oxide [Mgo] 400 mg PO BID 02/23/18 [History] Melatonin 6 mg PO HS PRN 02/23/18 [History] Mirtazapine [Remeron] 15 mg PO HS 02/23/18 [History] Multivitamin [One Daily Multivitamin] 1 tab PO DAILY 02/23/18 [History] OLANZapine [Zyprexa] 7.5 mg PO Q12H 02/23/18 [History] Ondansetron ODT [Zofran ODT] 4 mg SL Q6HR PRN 02/23/18 [History] Polyethylene Glycol 3350 [MiraLAX] 17 gm PO DAILY 02/23/18 [History] Tramadol HCl [Ultram] 50 mg PO Q6H PRN 02/23/18 [History] Zinc Sulfate [Zinc Sulfate] 220 mg PO DAILY 02/23/18 [History] clonazePAM [Klonopin] 1 mg PO TID PRN 02/23/18 [History] 3 Allergy/AdvReac Type Severity Reaction Status Date / Time aripiprazole [From Abilify] Allergy Difficulty Verified 02/23/18 07:51 Breathing aspirin Allergy Difficulty Verified 02/23/18 07:51 Breathing ibuprofen Allergy Difficulty Verified 02/23/18 07:51 Breathing latex Allergy Difficulty Verified 02/23/18 07:51 Breathing metronidazole [From Flagyl] Allergy Difficulty Verified 02/23/18 07:51 Breathing naproxen [From Aleve] Allergy Difficulty Verified 02/23/18 07:51 Breathing Sulfa (Sulfonamide AdvReac Vomiting Verified 02/23/18 07:51 Antibiotics) pea Allergy Unknown unsure Uncoded 02/23/18 07:51 Review of Systems Psychiatric: Reports: anxiety, auditory hallucinations, difficulty concentrating Psychiatry Exam - Constitutional Vitals: Temp Pulse Resp BP Pulse Ox 98.6 F 73 18 123/94 96 02/25/18 11:14 02/25/18 11:14 02/25/18 11:14 02/25/18 11:14 02/25/18 11:14 General appearance: disheveled, thin - Musculoskeletal Strength & Tone: rigid - Psychiatric Patient Orientation: Yes Person Level of alertness: Alert Behavior: nervous, anxious Psychomotor activity: Abnormal movements Eye Contact: Minimal Contact Mood Description: Anxious Affect description: flat Speech Volume: Soft/Quiet Speech pattern: normal tone, impoverished Thought Process: Slowed Thinking Thought Content: Yes [employer]ism delusion Perceptual Disturbances: Yes Auditory hallucinations Attention Span Ability: Unable to Sustain Attention Patient Reliability: Not Reliable Historian Intelligence Estimate: Below Average Judgment: Poor Insight: None Results - Labs Labs: Laboratory Last Values WBC 30.5 K/mcL (4.3-11.1) H* 02/25/18 08:28 RBC 2.96 M/mcL (3.82-4.97) L 02/25/18 08:28 Hgb 9.0 g/dL (11.5-15.4) L 02/25/18 08:28 Hct 28.3 % (35.3-44.9) L 02/25/18 08:28 MCV 95.6 fL (83.0-100.0) 02/25/18 08:28 MCH 30.4 pg (28.0-33.3) 02/25/18 08:28 MCHC 31.8 g/dL (31.6-35.5) 02/25/18 08:28 RDW 15.9 % (11.5-14.5) H 02/25/18 08:28 Plt Count 199 K/mcL (140-400) 02/25/18 08:28 MPV 11.8 fL (9.4-12.4) 02/25/18 08:28 Immature Gran % 1.4 % (0-4) 02/24/18 03:55 Seg Neutrophils % 90.0 % 02/25/18 08:28 Lymphocytes % 10.0 % 02/25/18 08:28 Monocytes % 4.7 % 02/24/18 03:55 Eosinophils % 0.0 % 02/24/18 03:55 Basophils % 0.2 % 02/24/18 03:55 Neutrophils # 27.5 K/mcL (1.6-8.9) H 02/25/18 08:28 Lymphocytes # 3.1 K/mcL (0.6-4.6) 02/25/18 08:28 Monocytes # 1.1 K/mcL (0.0-1.3) 02/24/18 03:55 Eosinophils # 0.0 K/mcL (0.0-0.6) 02/24/18 03:55 Basophils # 0.0 K/mcL (0.0-0.2) 02/24/18 03:55 Platelet Estimate Normal (Normal) 02/25/18 08:28 PT 13.6 Seconds (9.4-12.1) H 02/22/18 21:03 INR 1.2 02/22/18 21:03 APTT 37.0 Seconds (26.0-36.0) H 02/22/18 21:03 D-Dimer 793 ng/mLFEU (0-500) H 02/22/18 21:03 Sodium 140 mEq/L (136-145) 02/25/18 08:28 Potassium 4.4 mEq/L (3.5-5.1) 02/25/18 08:28 Chloride 110 mEq/L (98-107) H 02/25/18 08:28 Carbon Dioxide 19 mEq/L (23-29) L 02/25/18 08:28 BUN 53 mg/dL (6-20) H 02/25/18 08:28 Creatinine 1.69 mg/dL (0.60-1.20) H 02/25/18 08:28 Est GFR ( Amer) 41 (> 60) L 02/25/18 08:28 Est GFR (Non-Af Amer) 34 (> 60) L 02/25/18 08:28 BUN/Creatinine Ratio 31 (6-26) H 02/25/18 08:28 Glucose 69 mg/dL (70-105) L 02/25/18 08:28 POC Glucose 90 mg/dL (70-99) 02/25/18 05:14 Calculated Osmolality 303 (280-300) H 02/25/18 08:28 Lactic Acid 1.0 mmol/L (0.5-2.2) 02/24/18 03:55 Calcium 8.5 mg/dL (8.6-10.3) L 02/25/18 08:28 Magnesium 2.2 mg/dL (1.6-2.6) 02/23/18 03:53 Iron 23 mcg/dL (50-170) L 02/25/18 08:28 % Saturation 9 % (15-50) L 02/25/18 08:28 Transferrin 193 mg/dL (203-362) L 02/25/18 08:28 Ferritin 1240 ng/mL (10-120) H 02/25/18 08:28 Total Bilirubin 0.4 mg/dL (0.3-1.0) 02/24/18 03:55 Direct Bilirubin 0.2 mg/dL (0.0-0.2) 02/24/18 03:55 Indirect Bilirubin 0.2 mg/dL (0.0-1.2) 02/24/18 03:55 AST 156 Units/L (13-39) H 02/24/18 03:55 ALT 124 Units/L (7-52) H 02/24/18 03:55 Alkaline Phosphatase 255 Units/L (34-104) H 02/24/18 03:55 Creatine Kinase 197 Units/L (30-223) 02/25/18 08:28 Troponin I 0.07 ng/mL (< 0.04) H* 02/23/18 09:39 Serum Total Protein 5.3 g/dL (6.4-8.9) L 02/24/18 03:55 Albumin 3.1 g/dL (3.5-5.7) L 02/24/18 03:55 Globulin 2.2 g/dL (2.4-3.5) L 02/24/18 03:55 Albumin/Globulin Ratio 1.4 (1.1-2.2) 02/24/18 03:55 Urine Color Yellow (Yellow) 02/22/18 21:19 Urine Clarity Turbid (Clear) A 02/22/18 21:19 Urine pH 6.5 pH Units (5.0-8.0) 02/22/18 21:19 Ur Specific [place] 1.015 (1.010-1.025) 02/22/18 21:19 Urine Protein Trace mg/dL (Neg-Trace) 02/22/18 21:19 Urine Glucose (UA) Normal mg/dL (Normal) 02/22/18 21:19 Urine Ketones Trace mg/dL (Negative) H 02/22/18 21:19 Urine Blood Negative (Negative) 02/22/18 21:19 Urine Nitrite Negative (Negative) 02/22/18 21:19 Urine Bilirubin Negative (Negative) 02/22/18 21:19 Urine Urobilinogen Normal mg/dL (Normal) 02/22/18 21:19 Ur Leukocyte Esterase Small (Negative) H 02/22/18 21:19 Urine Microscopic RBC 5-15 per hpf (0-3) H 02/22/18 21:19 Urine Microscopic WBC 5-15 per hpf (0-3) H 02/22/18 21:19 Ur Squamous Epith Cells Many per lpf (None-Few) H 02/22/18 21:19 Urine Bacteria None Seen per hpf (None-Few) 02/22/18 21:19 Hyaline Casts Few per lpf (None-Few) 02/22/18 21:19 Ur Culture Indicated? NO. (NO) A 02/22/18 21:19 Vancomycin Trough 25 mcg/mL (5-10) H 02/25/18 01:44 - Impressions Impressions Brain MRI 02/24/18 09:03 IMPRESSION: There is diffuse high signal in the central [place]. This is new since the previous MRI from 2016. The exact etiology of the abnormality is uncertain. Differential diagnosis includes a pontine neoplasm, central pontine myelinolysis, a demyelinating process, or metabolic diseases as discussed above. Postcontrast images could further evaluate. D/ /24/2018 16:03:33 Sada Burks MD / [facility] Interpreting Provider: Sada Burks MD Consult Discharge Plan - Plan Referrals: Jimenez Zavala MD [Primary Care Provider] -
[2018-02-25] MEDS: D5% in 0.45% NACL 1,000 ML IVC SCH (16:05)
[2018-02-26] MEDS: Azithromycin 500 MG in D5% in Water 250 ML IVPB SCH (02:49)
[2018-02-26 05:31] LABS: Basophils % 0.1 %; Eosinophils # 0.1 K/mcL (0.0-0.6); Eosinophils % 0.3 %; Hemoglobin 8.4 g/dL (11.5-15.4); Immature Granulocytes % 1.1 % (0-4); Lymphocytes # 1.9 K/mcL (0.6-4.6); Lymphocytes % 7.4 %; Mean Corpuscular HGB Conc 32.3 g/dL (31.6-35.5); Mean Corpuscular Hemoglobin 31.2 pg (28.0-33.3); Mean Corpuscular Volume 96.7 fL (83.0-100.0); Mean Platelet Volume 11.8 fL (9.4-12.4); Monocytes # 1.3 K/mcL (0.0-1.3); Monocytes % 5.1 %; Neutrophils # 21.6 K/mcL (1.6-8.9); Platelet Count 152 K/mcL (140-400); Red Blood Count 2.69 M/mcL (3.82-4.97); Red Cell Distribution Width 16.1 % (11.5-14.5)
[2018-02-26 05:47] LABS: Anisocytosis 1+ (Not Present); Hypersegmented Neutrophils Present (Not Present); Platelet Estimate Normal (Normal)
[2018-02-26] MEDS: *HR* Heparin 5,000 UNIT/ML VIAL SQ SCH ×2 (06:01→17:34)
[2018-02-26] MEDS: D5% in 0.45% NACL 1,000 ML IVC SCH (06:01)
[2018-02-26 06:19] LABS: Calcium 8.1 mg/dL (8.6-10.3); Potassium 4.1 mEq/L (3.5-5.1)
[2018-02-26] MEDS: Nystatin SUSP 5 ML UD.LIQ PO SCH ×4 (08:00→20:33)
[2018-02-26] MEDS: Piperacillin/Tazobactam 3.375 GM in 0.9 % Sodium Chloride Mini Bag 100 ML IVPB SCH ×2 (08:00→17:34)
[2018-02-26] MEDS: *HR* LORazepam 2 MG/ML VIAL IVP PRN (08:00)
[2018-02-26] MEDS: Bisacodyl 10 MG RECTAL SUPPOSITORY RC SCH (08:00)
--- NOTE | 2018-02-26 12:52 | Neurology Progress Note ---
Date of Encounter: 02/26/18 Time of Encounter: 12:49 Assessment and Plan (1) Altered mental status Current Visit: Yes Status: Acute Patient apparently is improving clinically in terms of her mental status, so as her laboratory studies, WBC has been trending down and renal function is improving. Seen by Psychiatrist and appreciate input. Currently there does not appear to be any acute psychosis therefore will continue current treatment, mainly holding off antipsychotic agents and any medication that may lead to NMS and continue medical and supportive care. As discussed with medical team, will recommend keeping her on low dose benzodiazepam around the clock to avoid acute benzo withdrawal. If she continues to improve and medical conditions stabilize eventually she may benefit from psychiatry consultation in terms of her treatment options for her schizophrenia and bipolar disorder. No recurrent seizure activity reported. Qualifiers: Altered mental status type: somnolence Qualified Code(s): R40.0 - Somnolence Subjective Principal diagnosis: altered mental status Interval history: Patient seen and examined. She is again doing better and at the time of the interview, she is lot more alert and responsive and her rigidity also improved, also she has baseline Parkinsonian and secondary cervical dystonia making her neck rigid. NO fever and denies pain. answer simple questions well but still unable to communicate complex sentences Objective - Constitutional Vitals: Temp Pulse Resp BP Pulse Ox 97.5 F L 79 18 93/57 97 02/26/18 11:50 02/26/18 11:50 02/26/18 11:50 02/26/18 11:50 02/26/18 11:50 - Neurological Exam Sensorimotor examination: Present: other (Grossly intact) Motor Examination: Present: grossly full strength in all extremities, full strength in all major muscle groups Motor examination - right side: 5/5: deltoids, biceps, triceps, wrist flexion, wrist extension, detention officer, hip flexors, tibialis Anterior, quadriceps, toe extension (EHL), plantarflexion Motor examination - left side: 5/5: deltoids, biceps, triceps, wrist flexion, wrist extension, hip flexors, detention officer, quadriceps, tibialis Anterior, toe extension (EHL), plantarflexion Sensation intact: Present: intact (Grossly intact) Posture: Present: other (Less rigid today, nuchal rigidty also improved. ) Reflexes: Biceps: 1+, Triceps: 1+, Brachioradialis: 1+, Patella: 1+, Achilles: 1 + Mental Status Examination: Present: awake, alert, oriented to person, follows commands appropriately, answers questions appropriately, opens eyes to voice, makes eye contact, follows simple commands, localizes noxious stimulation, inattentive, cognitive impairment Cranial nerve examination: Present: PERRL (Pupils are equal in sizes and reactive), EOMI (Full), corneal reflexes brisk symmetrically, mastication intact , no facial asymmetry is present, no dysarthria (Difficult to assess), hearing is intact symmetrically, soft palate elevates bilaterally upon phonation ( Unable to assess), gag reflex intact, flexes SCM and trapezius muscles symmetrically with full power, tongue protrudes midline - VTE Documentation of Mechanical Device: Intermittent pneumatic compression device Results - Laboratory Findings CBC and BMP: 02/26/18 05:15 02/26/18 05:15 Abnormal lab findings: Abnormal lab results WBC 25.1 K/mcL (4.3-11.1) H 02/26/18 05:15 RBC 2.69 M/mcL (3.82-4.97) L 02/26/18 05:15 Hgb 8.4 g/dL (11.5-15.4) L 02/26/18 05:15 Hct 26.0 % (35.3-44.9) L 02/26/18 05:15 RDW 16.1 % (11.5-14.5) H 02/26/18 05:15 Neutrophils # 21.6 K/mcL (1.6-8.9) H 02/26/18 05:15 Hypersegmented Neuts Present (Not Present) A 02/26/18 05:15 Anisocytosis 1+ (Not Present) A 02/26/18 05:15 PT 13.6 Seconds (9.4-12.1) H 02/22/18 21:03 APTT 37.0 Seconds (26.0-36.0) H 02/22/18 21:03 D-Dimer 793 ng/mLFEU (0-500) H 02/22/18 21:03 Chloride 113 mEq/L (98-107) H 02/26/18 05:15 Carbon Dioxide 17 mEq/L (23-29) L 02/26/18 05:15 BUN 54 mg/dL (6-20) H 02/26/18 05:15 Creatinine 1.61 mg/dL (0.60-1.20) H 02/26/18 05:15 Est GFR ( Amer) 43 (> 60) L 02/26/18 05:15 Est GFR (Non-Af Amer) 36 (> 60) L 02/26/18 05:15 BUN/Creatinine Ratio 34 (6-26) H 02/26/18 05:15 POC Glucose 68 mg/dL (70-99) L 02/25/18 15:33 Calculated Osmolality 301 (280-300) H 02/26/18 05:15 Calcium 8.1 mg/dL (8.6-10.3) L 02/26/18 05:15 Iron 23 mcg/dL (50-170) L 02/25/18 08:28 % Saturation 9 % (15-50) L 02/25/18 08:28 Transferrin 193 mg/dL (203-362) L 02/25/18 08:28 Ferritin 1240 ng/mL (10-120) H 02/25/18 08:28 AST 156 Units/L (13-39) H 02/24/18 03:55 ALT 124 Units/L (7-52) H 02/24/18 03:55 Alkaline Phosphatase 255 Units/L (34-104) H 02/24/18 03:55 Troponin I 0.07 ng/mL (< 0.04) H* 02/23/18 09:39 Serum Total Protein 5.3 g/dL (6.4-8.9) L 02/24/18 03:55 Albumin 3.1 g/dL (3.5-5.7) L 02/24/18 03:55 Globulin 2.2 g/dL (2.4-3.5) L 02/24/18 03:55 Urine Clarity Turbid (Clear) A 02/22/18 21:19 Urine Ketones Trace mg/dL (Negative) H 02/22/18 21:19 Ur Leukocyte Esterase Small (Negative) H 02/22/18 21:19 Urine Microscopic RBC 5-15 per hpf (0-3) H 02/22/18 21:19 Urine Microscopic WBC 5-15 per hpf (0-3) H 02/22/18 21:19 Ur Squamous Epith Cells Many per lpf (None-Few) H 02/22/18 21:19 Ur Culture Indicated? NO. (NO) A 02/22/18 21:19 Vancomycin Trough 25 mcg/mL (5-10) H 02/25/18 01:44 Consult Discharge Plan - Plan Referrals: Jimenez Zavala MD [Primary Care Provider] -
--- NOTE | 2018-02-26 14:00 | Internal Med Progress Note ---
Hospitalist Progress Note - Encounter Date of Encounter: 02/26/18 Time of Encounter: 09:00 - Subjective Interval History: patient is awake today but not alert; unable to answer questions or follow commands; has tremors in both hands and head; - Exam Vitals: Temp Pulse Resp BP Pulse Ox 97.5 F L 79 18 93/57 97 02/26/18 11:50 02/26/18 11:50 02/26/18 11:50 02/26/18 11:50 02/26/18 11:50 Exam: General: cachectic female with functional quadriplegia, no acute distress, lying in bed Skin: Warm and supple Chest: Normal thoracic expansion. Clear to auscultation B/L anterolaterally; Heart: Normal S1 & S2; tachycardic; rhythmic. No rubs or murmurs. Abdomen: Rigid, nontender Extremities: functional quadriplegia+, upper extremity and cephalic/oral tremors , + Neurological: awake but not alert, cannot follow commands; B/L LE weakness and feet deformities - Assessment and Plan (1) Neuroleptic malignant syndrome Current Visit: Yes Status: Acute Assessment and Plan: Overall noted to be slowly improving, however continues to have waxing and waning mental status, not alert/at baseline today; leukocytosis noted to be improving, WBC count 25 today. No fever spikes in the last 24 hours. Improving rigidity. Serum creatinine kinase worsening but still within normal limits, at 197. Continue IV hydration. MRI brain shows diffuse high signal in the brainstem, could be neoplasm or central pontine myelin lysis or a demyelinating process; case discussed with neurology-recommend repeating noncontrast MRI tomorrow. EEG shows no evidence of seizures continue supportive care and current management. hold Haldol, olanzapine and trazodone; psychiatry consult appreciated, currently signed off. Discussed with neurology again-we will hold off on probable NMS therapy with dopamine agonists, muscle relaxants at this time as she is noted to be improving ; Patient was seen by [employer] for swallow evaluation today, noted to be choking with thickened liquids, plan for modified Barium Swallow study tomorrow. (2) Acute kidney injury superimposed on chronic kidney disease Current Visit: Yes Status: Acute Assessment and Plan: Patient probably does not have chronic kidney disease, noted to have normal serum creatinine in the past. Serum creatinine currently improving, 1.61 today. Continue IV hydration and monitor closely. Avoid new nephrotoxic agents. Monitor urine output closely. (3) Essential hypertension Current Visit: Yes Status: Chronic (4) DVT prophylaxis Current Visit: Yes Status: Acute (5) HCAP (healthcare-associated pneumonia) Current Visit: Yes Status: Acute Assessment and Plan: CT angiogram of chest shows bilateral pulmonary infiltrates. Suspected aspiration. Blood cultures negative. Continue broad-spectrum IV antibiotics- Zosyn and azithromycin- day 3. Improving oxygen requirements. No fever, improving leukocytosis. Patient is currently kept nothing by mouth. [employer] evaluation as mentioned above. Supportive care and supplemental oxygen. (6) Constipation Current Visit: Yes Status: Chronic (7) Sepsis Current Visit: Yes Status: Suspected Assessment and Plan: Unclear if this is true sepsis. Presented with leukocytosis, mild tachypnea and minimal troponin leak. Could be secondary to neuroleptic malignant syndrome. Follow-up cultures and continue IV antibiotics as above. (8) Hypothyroidism Current Visit: Yes Status: Chronic (9) Schizophrenia Current Visit: Yes Status: Chronic (10) Tardive dyskinesia Current Visit: Yes Status: Chronic DVT Prophylaxis: On subcutaneous heparin. - Time Spent with Patient Total time spent is greater than 50% in coordination of care (as documented) at patient's floor/unit and/or counseling patient: Plan of Care Discussed with: sales enablement consultant Internal Medicine: Result - Labs CBC & Chem 7: 02/26/18 05:15 02/26/18 05:15 Labs: Short CBC 02/26/18 Range/Units 05:15 WBC 25.1 H (4.3-11.1) K/mcL Hgb 8.4 L (11.5-15.4) g/dL Hct 26.0 L (35.3-44.9) % Plt Count 152 (140-400) K/mcL Neutrophils # 21.6 H (1.6-8.9) K/mcL BMP 02/26/18 05:15 Sodium 138 Potassium 4.1 Chloride 113 H Carbon Dioxide 17 L BUN 54 H Creatinine 1.61 H Glucose 100 Calcium 8.1 L - ABG Interpretation ABG results: PT/INR, D-dimer PT 13.6 Seconds (9.4-12.1) H 02/22/18 21:03 D-Dimer 793 ng/mLFEU (0-500) H 02/22/18 21:03 - VTE Documentation of Mechanical Device: Intermittent pneumatic compression device Consult Discharge Plan - Plan Referrals: Jimenez Zavala MD [Primary Care Provider] - (6) Constipation Qualifiers: Constipation type: drug induced constipation Qualified Code(s): K59.03 - Drug induced constipation (7) Sepsis Qualifiers: Sepsis type: sepsis due to unspecified organism Qualified Code(s): A41.9 - Sepsis, unspecified organism (8) Hypothyroidism Qualifiers: Hypothyroidism type: unspecified Qualified Code(s): E03.9 - Hypothyroidism, unspecified (9) Schizophrenia Qualifiers: Schizophrenia type: unspecified Qualified Code(s): F20.9 - Schizophrenia, unspecified
[2018-02-26] MEDS ORDERED: Sodium Bicarbonate 150 MEQ in D5% in Water 1,000 ML IVC SCH (16:30)
[2018-02-26] MEDS: Sodium Bicarbonate 150 MEQ in D5% in Water 1,000 ML IVC SCH (17:35)
[2018-02-26] MEDS: *HR* LORazepam 2 MG/ML VIAL IVP SCH (20:33)
[2018-02-27] MEDS: Piperacillin/Tazobactam 3.375 GM in 0.9 % Sodium Chloride Mini Bag 100 ML IVPB SCH ×3 (00:07→16:14)
[2018-02-27] MEDS: Azithromycin 500 MG in D5% in Water 250 ML IVPB SCH (02:47)
[2018-02-27 05:00] LABS: Basophils % 0.1 %; Eosinophils % 0.1 %; Hematocrit 26.1 % (35.3-44.9); Hemoglobin 8.4 g/dL (11.5-15.4); Immature Granulocytes % 0.7 % (0-4); Lymphocytes # 1.2 K/mcL (0.6-4.6); Mean Corpuscular HGB Conc 32.2 g/dL (31.6-35.5); Mean Corpuscular Hemoglobin 31.1 pg (28.0-33.3); Mean Corpuscular Volume 96.7 fL (83.0-100.0); Mean Platelet Volume 12.3 fL (9.4-12.4); Monocytes # 1.1 K/mcL (0.0-1.3); Monocytes % 4.6 %; Neutrophils # 21.8 K/mcL (1.6-8.9); Platelet Count 137 K/mcL (140-400); Red Cell Distribution Width 16.2 % (11.5-14.5); Segmented Neutrophils % 89.5 %
[2018-02-27 05:19] LABS: Calcium 8.4 mg/dL (8.6-10.3)
[2018-02-27] MEDS: *HR* Heparin 5,000 UNIT/ML VIAL SQ SCH ×2 (05:36→16:15)
[2018-02-27 05:38] LABS: Hypersegmented Neutrophils Present (Not Present); Platelet Estimate Normal (Normal); Toxic Granulation Present (Not Present)
[2018-02-27 05:39] LABS: Anisocytosis 1+ (Not Present); Macrocytosis Present (Not Present)
[2018-02-27 05:40] LABS: Large Platelets Present (Not Present)
[2018-02-27] MEDS: Nystatin SUSP 5 ML UD.LIQ PO SCH ×4 (07:39→20:09)
[2018-02-27] MEDS: *HR* LORazepam 2 MG/ML VIAL IVP SCH ×2 (07:39→20:09)
[2018-02-27] MEDS: Bisacodyl 10 MG RECTAL SUPPOSITORY RC SCH (07:39)
[2018-02-27] MEDS: Sodium Bicarbonate 150 MEQ in D5% in Water 1,000 ML IVC SCH (09:04)
[2018-02-27] MEDS: Levothyroxine Sodium 100 MCG VIAL IVP SCH (13:28)
[2018-02-27] MEDS: Pantoprazole 40 MG VIAL IVP SCH (13:41)
--- NOTE | 2018-02-27 15:26 | Neurology Progress Note ---
Date of Encounter: 02/27/18 Time of Encounter: 15:23 Assessment and Plan (1) Altered mental status Current Visit: Yes Status: Acute Patient continues to improve although she still has baseline disorientation and cognitive impairment. She is still off Haldol and on ativan regularly. She has been responsive and is able to answer questions and follow simple commands. Is still disoriented to time and place which could be result of ongoing but improving encephalopathy. Her laboratory studies are improving as well, especially her WBC and renal function. Please continue medical and supportive care Qualifiers: Altered mental status type: somnolence Qualified Code(s): R40.0 - Somnolence Subjective Principal diagnosis: altered mental status Interval history: Patient seen and examined. She continues to do better. She is more alert and responsive and can engage in simple conversation today. 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 She admits back pain. She does not know what day is and does not know which hospital she is in. Overall speaking in terms of her mental states she is stable and improving a little every day. No headaches. No fever Objective - Constitutional Vitals: Temp Pulse Resp BP Pulse Ox 97.8 F 77 18 96/71 96 02/27/18 11:08 02/27/18 15:00 02/27/18 11:08 02/27/18 11:08 02/27/18 11:08 - Neurological Exam Sensorimotor examination: Present: other (Grossly intact) Motor Examination: Present: grossly full strength in all extremities, full strength in all major muscle groups Motor examination - right side: 5/5: deltoids, biceps, triceps, wrist flexion, wrist extension, district court reporter, hip flexors, tibialis Anterior, quadriceps, toe extension (EHL), plantarflexion Motor examination - left side: 5/5: deltoids, biceps, triceps, wrist flexion, wrist extension, hip flexors, district court reporter, quadriceps, tibialis Anterior, toe extension (EHL), plantarflexion Sensation intact: Present: intact (Grossly intact) Posture: Present: other (Less rigid today, nuchal rigidty also improved. ) Mental Status Examination: Present: awake, alert, oriented to person, follows commands appropriately, answers questions appropriately, opens eyes to voice, makes eye contact, follows simple commands, localizes noxious stimulation, answers questions by nodding yes or no, inattentive, impaired memory, cognitive impairment Cranial nerve examination: Present: PERRL (Pupils are equal in sizes and reactive), EOMI (no significant abnormalities noted), corneal reflexes brisk symmetrically, mastication intact, no facial asymmetry is present, no dysarthria (Dysarthric. Hesitate and high pitched voice), hearing is intact symmetrically, soft palate elevates bilaterally upon phonation (Unable to assess ), gag reflex intact, flexes SCM and trapezius muscles symmetrically with full power, tongue protrudes midline - VTE Documentation of Mechanical Device: Intermittent pneumatic compression device Results - Laboratory Findings CBC and BMP: 02/27/18 04:26 02/27/18 04:26 Abnormal lab findings: Abnormal lab results WBC 24.3 K/mcL (4.3-11.1) H 02/27/18 04:26 RBC 2.70 M/mcL (3.82-4.97) L 02/27/18 04:26 Hgb 8.4 g/dL (11.5-15.4) L 02/27/18 04:26 Hct 26.1 % (35.3-44.9) L 02/27/18 04: RDW 16.2 % (11.5-14.5) H 02/27/18 04:26 Plt Count 137 K/mcL (140-400) L 02/27/18 04:26 Neutrophils # 21.8 K/mcL (1.6-8.9) H 02/27/18 04:26 Hypersegmented Neuts Present (Not Present) A 02/27/18 04:26 Toxic Granulation Present (Not Present) A 02/27/18 04:26 Large Platelets Present (Not Present) A 02/27/18 04:26 Anisocytosis 1+ (Not Present) A 02/27/18 04:26 Macrocytosis Present (Not Present) A 02/27/18 04:26 PT 13.6 Seconds (9.4-12.1) H 02/22/18 21:03 APTT 37.0 Seconds (26.0-36.0) H 02/22/18 21:03 D-Dimer 793 ng/mLFEU (0-500) H 02/22/18 21:03 Chloride 111 mEq/L (98-107) H 02/27/18 04:26 BUN 55 mg/dL (6-20) H 02/27/18 04:26 Creatinine 1.52 mg/dL (0.60-1.20) H 02/27/18 04:26 Est GFR ( Amer) 46 (> 60) L 02/27/18 04:26 Est GFR (Non-Af Amer) 38 (> 60) L 02/27/18 04:26 BUN/Creatinine Ratio 36 (6-26) H 02/27/18 04:26 Glucose 136 mg/dL (70-105) H 02/27/18 04:26 POC Glucose 118 mg/dL (70-99) H 02/26/18 23:53 Calculated Osmolality 305 (280-300) H 02/27/18 04:26 Calcium 8.4 mg/dL (8.6-10.3) L 02/27/18 04:26 Iron 23 mcg/dL (50-170) L 02/25/18 08:28 % Saturation 9 % (15-50) L 02/25/18 08:28 Transferrin 193 mg/dL (203-362) L 02/25/18 08:28 Ferritin 1240 ng/mL (10-120) H 02/25/18 08:28 AST 156 Units/L (13-39) H 02/24/18 03:55 ALT 124 Units/L (7-52) H 02/24/18 03:55 Alkaline Phosphatase 255 Units/L (34-104) H 02/24/18 03:55 Troponin I 0.07 ng/mL (< 0.04) H* 02/23/18 09:39 Serum Total Protein 5.3 g/dL (6.4-8.9) L 02/24/18 03:55 Albumin 3.1 g/dL (3.5-5.7) L 02/24/18 03:55 Globulin 2.2 g/dL (2.4-3.5) L 02/24/18 03:55 Urine Clarity Turbid (Clear) A 02/22/18 21:19 Urine Ketones Trace mg/dL (Negative) H 02/22/18 21:19 Ur Leukocyte Esterase Small (Negative) H 02/22/18 21:19 Urine Microscopic RBC 5-15 per hpf (0-3) H 02/22/18 21:19 Urine Microscopic WBC 5-15 per hpf (0-3) H 02/22/18 21:19 Ur Squamous Epith Cells Many per lpf (None-Few) H 02/22/18 21:19 Ur Culture Indicated? NO. (NO) A 02/22/18 21:19 Vancomycin Trough 25 mcg/mL (5-10) H 02/25/18 01:44 Consult Discharge Plan - Plan Referrals: Jimenez Zavala MD [Primary Care Provider] - (this patient is from an [facility] no PCP appointment needed)
--- NOTE | 2018-02-27 19:05 | Internal Med Progress Note ---
Hospitalist Progress Note - Encounter Date of Encounter: 02/27/18 Time of Encounter: 11:00 - Subjective Interval History: Patient alert and oriented 1 this morning and is improving per neurology - Exam Vitals: Temp Pulse Resp BP Pulse Ox 97.8 F 78 18 105/83 97 02/27/18 16:07 02/27/18 16:07 02/27/18 16:07 02/27/18 16:07 02/27/18 16:07 Exam: Gen.: Nonacute distress, alert and oriented 1 ENT: Mucosal membranes moist Respiratory: Lungs are clear to auscultation bilaterally without any wheezing rhonchi or rales Cardiovascular: Normal S1 and S2 regular rate rhythm no murmurs rubs or gallops Abdomen: Soft, nontender and nondistended with positive bowel sounds Extremities: No lower extremity edema Skin: Normal color - Assessment and Plan (1) HCAP (healthcare-associated pneumonia) Current Visit: Yes Status: Acute Assessment and Plan: CT angiogram of chest shows bilateral pulmonary infiltrates. Suspected aspiration. Blood cultures negative. Continue broad-spectrum IV antibiotics- Zosyn and azithromycin Supportive care and supplemental oxygen. (2) Schizophrenia Current Visit: Yes Status: Chronic (3) Hypothyroidism Current Visit: Yes Status: Chronic Assessment and Plan: Continue levothyroxine (4) Acute kidney injury superimposed on chronic kidney disease Current Visit: Yes Status: Acute Assessment and Plan: Continue IV hydration and monitor closely. Avoid new nephrotoxic agents. Monitor urine output closely. (5) Essential hypertension Current Visit: Yes Status: Chronic Assessment and Plan: Well-controlled Continue to monitor (6) Tardive dyskinesia Current Visit: Yes Status: Chronic Assessment and Plan: Patient has chronic significant history of tardive dyskinesia with extensive head, perioral and upper extremity tremors. Patient does have a history of Parkinson's disease per neurology and stiffness could be baseline. (7) Neuroleptic malignant syndrome Current Visit: Yes Status: Acute Assessment and Plan: Neurology consulted and following and does not suspect NMS Will continue to monitor (8) DVT prophylaxis Current Visit: Yes Status: Acute Assessment and Plan: On subcutaneous heparin. - Time Spent with Patient Total time spent is greater than 50% in coordination of care (as documented) at patient's floor/unit and/or counseling patient: Internal Medicine: Result - Labs CBC & Chem 7: 02/27/18 04:26 02/27/18 04:26 Labs: Short CBC 02/27/18 Range/Units 04:26 WBC 24.3 H (4.3-11.1) K/mcL Hgb 8.4 L (11.5-15.4) g/dL Hct 26.1 L (35.3-44.9) % Plt Count 137 L (140-400) K/mcL Neutrophils # 21.8 H (1.6-8.9) K/mcL BMP 02/27/18 04:26 Sodium 139 Potassium 4.0 Chloride 111 H Carbon Dioxide 23 BUN 55 H Creatinine 1.52 H Glucose 136 H Calcium 8.4 L - ABG Interpretation ABG results: PT/INR, D-dimer PT 13.6 Seconds (9.4-12.1) H 02/22/18 21:03 D-Dimer 793 ng/mLFEU (0-500) H 02/22/18 21:03 - Impressions Impressions Videofluoroscopic Swallow 02/26/18 15:45 IMPRESSION: Patient would not swallow on command. Please see separate speech pathology report for full discussion of findings and recommendations. D/ / Hans Grover MD / Hans Grover MD Interpreting Provider: Hans Grover MD Brain MRI 02/27/18 10:00 IMPRESSION: Stable MRI of the brain. Redemonstration of diffuse high signal within the [place] that is nonspecific as discussed above. No new finding. D/ / 02/27/2018 12:11:40 Sada Burks MD / [email or web address] Interpreting Provider: Sada Burks MD - VTE Documentation of Mechanical Device: Intermittent pneumatic compression device Consult Discharge Plan - Plan Referrals: Jimenez Zavala MD [Primary Care Provider] - (this patient is from an [facility] no PCP appointment needed) (2) Schizophrenia Qualifiers: Schizophrenia type: unspecified Qualified Code(s): F20.9 - Schizophrenia, unspecified (3) Hypothyroidism Qualifiers: Hypothyroidism type: unspecified Qualified Code(s): E03.9 - Hypothyroidism, unspecified
[2018-02-28] MEDS: Piperacillin/Tazobactam 3.375 GM in 0.9 % Sodium Chloride Mini Bag 100 ML IVPB SCH ×4 (00:31→23:25)
[2018-02-28] MEDS: Sodium Bicarbonate 150 MEQ in D5% in Water 1,000 ML IVC SCH ×2 (05:12→21:00)
[2018-02-28] MEDS: Azithromycin 500 MG in D5% in Water 250 ML IVPB SCH (05:13)
[2018-02-28] MEDS: *HR* Heparin 5,000 UNIT/ML VIAL SQ SCH ×2 (05:13→17:01)
[2018-02-28] MEDS: Levothyroxine Sodium 100 MCG VIAL IVP SCH (07:59)
[2018-02-28] MEDS: *HR* LORazepam 2 MG/ML VIAL IVP SCH ×2 (08:01→19:51)
[2018-02-28] MEDS: Pantoprazole 40 MG VIAL IVP SCH (08:02)
[2018-02-28] MEDS: Bisacodyl 10 MG RECTAL SUPPOSITORY RC SCH (08:02)
[2018-02-28] MEDS: Nystatin SUSP 5 ML UD.LIQ PO SCH (08:03)
[2018-02-28 11:20] LABS: Basophils % 0.1 %; Eosinophils # 0.2 K/mcL (0.0-0.6); Hematocrit 27.3 % (35.3-44.9); Immature Granulocytes % 0.7 % (0-4); Lymphocytes # 1.4 K/mcL (0.6-4.6); Lymphocytes % 7.8 %; Mean Corpuscular HGB Conc 32.6 g/dL (31.6-35.5); Mean Corpuscular Hemoglobin 31.4 pg (28.0-33.3); Mean Corpuscular Volume 96.5 fL (83.0-100.0); Mean Platelet Volume 12.8 fL (9.4-12.4); Monocytes # 1.2 K/mcL (0.0-1.3); Monocytes % 6.6 %; Platelet Count 119 K/mcL (140-400); Red Blood Count 2.83 M/mcL (3.82-4.97); Red Cell Distribution Width 16.1 % (11.5-14.5); Segmented Neutrophils % 83.8 %
[2018-02-28 11:22] LABS: Hemoglobin 8.9 g/dL (11.5-15.4); Neutrophils # 15.5 K/mcL (1.6-8.9)
--- NOTE | 2018-02-28 12:43 | Neurology Progress Note ---
Date of Encounter: 02/28/18 Time of Encounter: 12:41 Assessment and Plan (1) Altered mental status Current Visit: Yes Status: Acute Patient has been slowing improved in terms of her mental status. She has significant bradykinesis, mental slowness as part of her baseline condition and her mental status not back to her baseline but certainly been improving. She is alert and oriented to person now. Laboratory studies including WBC are improving. She does have back pain and decubitus. No further testing recommend. Please continue medical and supportive care Qualifiers: Altered mental status type: somnolence Qualified Code(s): R40.0 - Somnolence Subjective Principal diagnosis: altered mental status Interval history: Patient seen and examined. Again she is alert an awake and today she is able to tell her date and her age and it just that she needs to more time to react. She complains of having back pain and she does have decubitus at the tailbone area. No fever and no seizure activity. Tardive tremors are present so as the muscle rigidity. Objective - Constitutional Vitals: Temp Pulse Resp BP Pulse Ox 98.0 F 80 20 107/84 94 02/28/18 11:14 02/28/18 12:30 02/28/18 11:14 02/28/18 11:14 02/28/18 11:14 - Neurological Exam Sensorimotor examination: Present: other (Grossly intact) Motor Examination: Present: grossly full strength in all extremities, full strength in all major muscle groups (Patient has Parkinsonian features and very rigid but able move all extremities. Hand milieu therapist are equal) Motor examination - right side: 4/5: deltoids, biceps, triceps, wrist flexion, wrist extension, headhunter, hip flexors, tibialis Anterior, quadriceps, toe extension (EHL), plantarflexion Motor examination - left side: 4/5: deltoids, biceps, triceps, wrist flexion, wrist extension, hip flexors, headhunter, quadriceps, tibialis Anterior, toe extension (EHL), plantarflexion Sensation intact: Present: intact (Grossly intact) Posture: Present: other (Less rigid today, nuchal rigidty also improved. ) Reflexes: Biceps: 1+, Triceps: 1+, Brachioradialis: 1+, Patella: 1+, Achilles: 1 + Mental Status Examination: Present: awake, alert, oriented to person, follows commands appropriately, answers questions appropriately, opens eyes to voice, makes eye contact, follows simple commands, localizes noxious stimulation, answers questions by nodding yes or no, inattentive, impaired memory, cognitive impairment Cranial nerve examination: Present: PERRL (Pupils are equal in sizes and reactive), EOMI (no significant abnormalities noted), corneal reflexes brisk symmetrically, mastication intact, no facial asymmetry is present, no dysarthria (Dysarthric. Hesitate and high pitched voice), hearing is intact symmetrically, soft palate elevates bilaterally upon phonation (Unable to assess ), gag reflex intact, flexes SCM and trapezius muscles symmetrically with full power, tongue protrudes midline - VTE Documentation of Mechanical Device: Intermittent pneumatic compression device Results - Laboratory Findings CBC and BMP: 02/28/18 10:56 02/27/18 04:26 Abnormal lab findings: Abnormal lab results WBC 18.5 K/mcL (4.3-11.1) H 02/28/18 10:56 RBC 2.83 M/mcL (3.82-4.97) L 02/28/18 10:56 Hgb 8.9 g/dL (11.5-15.4) L 02/28/18 10:56 Hct 27.3 % (35.3-44.9) L 02/28/18 10:56 RDW 16.1 % (11.5-14.5) H 02/28/18 10:56 Plt Count 119 K/mcL (140-400) L 02/28/18 10:56 MPV 12.8 fL (9.4-12.4) H 02/28/18 10:56 Neutrophils # 15.5 K/mcL (1.6-8.9) H 02/28/18 10:56 Hypersegmented Neuts Present (Not Present) A 02/27/18 04:26 Toxic Granulation Present (Not Present) A 02/27/18 04:26 Large Platelets Present (Not Present) A 02/27/18 04:26 Anisocytosis 1+ (Not Present) A 02/27/18 04:26 Macrocytosis Present (Not Present) A 02/27/18 04:26 PT 13.6 Seconds (9.4-12.1) H 02/22/18 21:03 APTT 37.0 Seconds (26.0-36.0) H 02/22/18 21:03 D-Dimer 793 ng/mLFEU (0-500) H 02/22/18 21:03 Chloride 111 mEq/L (98-107) H 02/27/18 04:26 BUN 55 mg/dL (6-20) H 02/27/18 04:26 Creatinine 1.52 mg/dL (0.60-1.20) H 02/27/18 04:26 Est GFR ( Amer) 46 (> 60) L 02/27/18 04:26 Est GFR (Non-Af Amer) 38 (> 60) L 02/27/18 04:26 BUN/Creatinine Ratio 36 (6-26) H 02/27/18 04:26 Glucose 136 mg/dL (70-105) H 02/27/18 04:26 POC Glucose 100 mg/dL (70-99) H 02/28/18 00:58 Calculated Osmolality 305 (280-300) H 02/27/18 04:26 Calcium 8.4 mg/dL (8.6-10.3) L 02/27/18 04:26 Iron 23 mcg/dL (50-170) L 02/25/18 08:28 % Saturation 9 % (15-50) L 02/25/18 08:28 Transferrin 193 mg/dL (203-362) L 02/25/18 08:28 Ferritin 1240 ng/mL (10-120) H 02/25/18 08:28 AST 156 Units/L (13-39) H 02/24/18 03:55 ALT 124 Units/L (7-52) H 02/24/18 03:55 Alkaline Phosphatase 255 Units/L (34-104) H 02/24/18 03:55 Troponin I 0.07 ng/mL (< 0.04) H* 02/23/18 09:39 Serum Total Protein 5.3 g/dL (6.4-8.9) L 02/24/18 03:55 Albumin 3.1 g/dL (3.5-5.7) L 02/24/18 03:55 Globulin 2.2 g/dL (2.4-3.5) L 02/24/18 03:55 Urine Clarity Turbid (Clear) A 02/22/18 21:19 Urine Ketones Trace mg/dL (Negative) H 02/22/18 21:19 Ur Leukocyte Esterase Small (Negative) H 02/22/18 21:19 Urine Microscopic RBC 5-15 per hpf (0-3) H 02/22/18 21:19 Urine Microscopic WBC 5-15 per hpf (0-3) H 02/22/18 21:19 Ur Squamous Epith Cells Many per lpf (None-Few) H 02/22/18 21:19 Ur Culture Indicated? NO. (NO) A 02/22/18 21:19 Vancomycin Trough 25 mcg/mL (5-10) H 02/25/18 01:44 Consult Discharge Plan - Plan Referrals: Jimenez Zavala MD [Primary Care Provider] - (this patient is from an ECF no PCP appointment needed)
[2018-02-28] MEDS: Magic Mouthwash 10 ML UD Cup PO SCH ×3 (13:12→19:51)
[2018-02-28 13:18] LABS: Calcium 8.9 mg/dL (8.6-10.3); Potassium 4.3 mEq/L (3.5-5.1)
--- NOTE | 2018-02-28 15:44 | Internal Med Progress Note ---
Hospitalist Progress Note - Encounter Date of Encounter: 02/28/18 Time of Encounter: 11:00 - Subjective Interval History: Patient alert but not responding to questions this morning; unclear if this is by choice or because of metabolic encephalopathy Discussed with patient's mother this afternoon who states this has been patient' s baseline for the last 2 months that sometimes she will have "good days and speak many words and other days will not say much at all." Patient has failed swallowing evaluation and nutrition recommendation for PEG tube which patient's mother agrees to - Exam Vitals: Temp Pulse Resp BP Pulse Ox 98.0 F 80 20 107/84 94 02/28/18 11:14 02/28/18 12:30 02/28/18 11:14 02/28/18 11:14 02/28/18 11:14 Exam: Gen.: Nonacute distress, alert and oriented 0 ENT: Mucosal membranes dry with whitish exudate identified in oral mucosa Cardiovascular: Normal S1 and S2 regular rate rhythm no murmurs rubs or gallops Abdomen: Soft, nontender and nondistended with positive bowel sounds Extremities: No lower extremity edema Skin: Normal color - Assessment and Plan (1) HCAP (healthcare-associated pneumonia) Current Visit: Yes Status: Acute Assessment and Plan: CT angiogram of chest shows bilateral pulmonary infiltrates. Suspected aspiration. Blood cultures negative. Continue Day 6 of IV Zosyn for suspect aspiration pneumonia Supportive care and supplemental oxygen. (2) Oral thrush Current Visit: Yes Status: Acute Assessment and Plan: Patient started on Magic mouthwash (3) Acute renal failure (ARF) Current Visit: Yes Status: Acute Assessment and Plan: Improving; serum creatinine 1.25 today and was 1.52 yesterday Continue IV hydration and monitor closely. Avoid new nephrotoxic agents. Monitor urine output closely. (4) Schizophrenia Current Visit: Yes Status: Chronic Assessment and Plan: Psychiatry was consulted with recommendations to discontinue patient's medications for schizophrenia (Haldol, clonazepam and trazodone) Recommendations to restart medications in 2 weeks Patient currently on IV Ativan as needed (5) Hypothyroidism Current Visit: Yes Status: Chronic Assessment and Plan: Continue levothyroxine (6) Essential hypertension Current Visit: Yes Status: Chronic Assessment and Plan: Well-controlled Continue to monitor (7) Tardive dyskinesia Current Visit: Yes Status: Chronic Assessment and Plan: Patient has chronic significant history of tardive dyskinesia with extensive head, perioral and upper extremity tremors. Patient does have a history of Parkinson's disease per neurology and stiffness could be baseline. (8) Neuroleptic malignant syndrome Current Visit: Yes Status: Acute Assessment and Plan: Neurology consulted and does not suspect NMS Will continue to monitor (9) DVT prophylaxis Current Visit: Yes Status: Acute Assessment and Plan: On subcutaneous heparin. - Time Spent with Patient Total time spent is greater than 50% in coordination of care (as documented) at patient's floor/unit and/or counseling patient: Internal Medicine: Result - Labs CBC & Chem 7: 02/28/18 10:56 02/28/18 12:39 Labs: Short CBC 02/28/18 Range/Units 10:56 WBC 18.5 H (4.3-11.1) K/mcL Hgb 8.9 L (11.5-15.4) g/dL Hct 27.3 L (35.3-44.9) % Plt Count 119 L (140-400) K/mcL Neutrophils # 15.5 H (1.6-8.9) K/mcL BMP 02/28/18 12:39 Sodium 144 Potassium 4.3 Chloride 108 H Carbon Dioxide 31 H BUN 50 H Creatinine 1.25 H Glucose 111 H Calcium 8.9 - ABG Interpretation ABG results: PT/INR, D-dimer PT 13.6 Seconds (9.4-12.1) H 02/22/18 21:03 D-Dimer 793 ng/mLFEU (0-500) H 02/22/18 21:03 - VTE Documentation of Mechanical Device: Intermittent pneumatic compression device Consult Discharge Plan - Plan Referrals: Jimenez Zavala MD [Primary Care Provider] - (this patient is from an [facility] no PCP appointment needed) (4) Schizophrenia Qualifiers: Schizophrenia type: unspecified Qualified Code(s): F20.9 - Schizophrenia, unspecified (5) Hypothyroidism Qualifiers: Hypothyroidism type: unspecified Qualified Code(s): E03.9 - Hypothyroidism, unspecified
[2018-02-28] MEDS: OXYCODONE Oral CONC 10 MG/0.5 ML ORAL.SYG SL PRN (21:01)
[2018-03-01] MEDS: OXYCODONE Oral CONC 10 MG/0.5 ML ORAL.SYG SL PRN (03:18)
[2018-03-01] MEDS: Acetaminophen 650 MG RECTAL SUPP RC PRN (03:56)
[2018-03-01] MEDS: *HR* Heparin 5,000 UNIT/ML VIAL SQ SCH ×2 (06:15→18:02)
[2018-03-01] MEDS: *HR* LORazepam 2 MG/ML VIAL IVP SCH ×2 (08:15→21:28)
[2018-03-01] MEDS: Piperacillin/Tazobactam 3.375 GM in 0.9 % Sodium Chloride Mini Bag 100 ML IVPB SCH ×2 (08:16→16:14)
[2018-03-01] MEDS: Levothyroxine Sodium 100 MCG VIAL IVP SCH (08:16)
[2018-03-01] MEDS: Magic Mouthwash 10 ML UD Cup PO SCH ×4 (08:16→21:29)
[2018-03-01] MEDS: Bisacodyl 10 MG RECTAL SUPPOSITORY RC SCH (08:16)
[2018-03-01] MEDS: Pantoprazole 40 MG VIAL IVP SCH (08:16)
--- NOTE | 2018-03-01 08:19 | Internal Med Progress Note ---
Hospitalist Progress Note - Encounter Date of Encounter: 03/01/18 Time of Encounter: 11:00 - Subjective Interval History: Patient still not communicating during the examination; neurology following and suspects patient getting closer to her baseline mentation. Discussed with patient's mother yesterday afternoon who states this has been patient's baseline for the last 2 months that sometimes she will have "good days and speak many words and other days will not say much at all." Patient has failed swallowing evaluation and nutrition recommendation for PEG tube which patient's mother agrees to; will consult general surgery once paperwork signed by family Patient now febrile with slowly improving leukocytosis on day 7of IV antibiotics for pneumonia; infectious disease consulted - Exam Vitals: Temp Pulse Resp BP Pulse Ox 101.0 F H 77 18 136/71 98 03/01/18 06:41 03/01/18 07:36 03/01/18 06:41 03/01/18 06:41 03/01/18 06:41 Exam: Gen.: Nonacute distress, alert and oriented 0; nonverbal ENT: Mucosal membranes moist and whitish exudate improved Cardiovascular: Normal S1 and S2 regular rate rhythm no murmurs rubs or gallops Abdomen: Nondistended Extremities: No lower extremity edema Skin: Normal color - Assessment and Plan (1) Encephalopathy Current Visit: No Status: Acute Assessment and Plan: Patient continues not to communicate much as she has been doing for most of her hospital stay Neurology following and thinks patient is close to baseline. Patient's mother reports that she has not been communicating much for a couple months. Patient does have psych history (schizophrenia) and is off medications due to suspected NMS per psychiatry. Patient does have infectious process with no improvement in leukocytosis and now afebrile again; 7 day course of IV Zosyn for HAP. Infectious disease now following (2) HCAP (healthcare-associated pneumonia) Current Visit: Yes Status: Acute Assessment and Plan: CT angiogram of chest shows bilateral pulmonary infiltrates. Suspected aspiration. Patient with slowly improving leukocytosis but now febrile on day 7 of IV Zosyn Repeat blood cultures pending Will consult infectious disease and appreciate recommendations (3) Oral thrush Current Visit: Yes Status: Acute Assessment and Plan: Patient with decreased whitish coating on oral mucosa Continue Magic mouthwash (4) Severe protein-calorie malnutrition Current Visit: Yes Status: Acute Assessment and Plan: Nutrition notes who have been consulted, patient has lost 79 pounds in 2 years and 33 pounds in the last 9 months. ECF states that patient has not been eating there as well Patient has also failed swallow eval Gen. surgery consulted for PEG tube placement (5) Acute renal failure (ARF) Current Visit: Yes Status: Acute Assessment and Plan: Renal function slightly improving with a creatinine of 1.27 today Continue IV hydration and monitor closely. Avoid new nephrotoxic agents. Monitor urine output closely. (6) Schizophrenia Current Visit: Yes Status: Chronic Assessment and Plan: Psychiatry was consulted with recommendations to discontinue patient's medications for schizophrenia (Haldol, clonazepam and trazodone) Recommendations to restart medications in 2 weeks Patient currently on IV Ativan as needed (7) Hypothyroidism Current Visit: Yes Status: Chronic Assessment and Plan: Continue levothyroxine (8) Essential hypertension Current Visit: Yes Status: Chronic Assessment and Plan: Well-controlled Continue to monitor (9) Tardive dyskinesia Current Visit: Yes Status: Chronic Assessment and Plan: Patient has chronic significant history of tardive dyskinesia with extensive head, perioral and upper extremity tremors. Patient does have a history of Parkinson's disease per neurology and stiffness could be baseline. (10) Neuroleptic malignant syndrome Current Visit: Yes Status: Acute Assessment and Plan: Neurology consulted and does not suspect NMS Will continue to monitor (11) DVT prophylaxis Current Visit: Yes Status: Acute Assessment and Plan: On subcutaneous heparin. - Time Spent with Patient Total time spent is greater than 50% in coordination of care (as documented) at patient's floor/unit and/or counseling patient: Internal Medicine: Result - Labs CBC & Chem 7: 03/01/18 09:25 03/01/18 09:25 Labs: Short CBC 02/28/18 Range/Units 10:56 WBC 18.5 H (4.3-11.1) K/mcL Hgb 8.9 L (11.5-15.4) g/dL Hct 27.3 L (35.3-44.9) % Plt Count 119 L (140-400) K/mcL Neutrophils # 15.5 H (1.6-8.9) K/mcL BMP 02/28/18 12:39 Sodium 144 Potassium 4.3 Chloride 108 H Carbon Dioxide 31 H BUN 50 H Creatinine 1.25 H Glucose 111 H Calcium 8.9 - ABG Interpretation ABG results: PT/INR, D-dimer PT 13.6 Seconds (9.4-12.1) H 02/22/18 21:03 D-Dimer 793 ng/mLFEU (0-500) H 02/22/18 21:03 - VTE Documentation of Mechanical Device: Intermittent pneumatic compression device Consult Discharge Plan - Plan Referrals: Jimenez Zavala MD [Primary Care Provider] - (this patient is from an [facility] no PCP appointment needed) (6) Schizophrenia Qualifiers: Schizophrenia type: unspecified Qualified Code(s): F20.9 - Schizophrenia, unspecified (7) Hypothyroidism Qualifiers: Hypothyroidism type: unspecified Qualified Code(s): E03.9 - Hypothyroidism, unspecified
[2018-03-01 09:41] LABS: Basophils % 0.1 %; Eosinophils % 0.1 %; Hematocrit 27.3 % (35.3-44.9); Hemoglobin 8.7 g/dL (11.5-15.4); Immature Granulocytes % 0.7 % (0-4); Lymphocytes # 0.9 K/mcL (0.6-4.6); Lymphocytes % 5.8 %; Mean Corpuscular HGB Conc 31.9 g/dL (31.6-35.5); Mean Corpuscular Hemoglobin 30.3 pg (28.0-33.3); Mean Corpuscular Volume 95.1 fL (83.0-100.0); Mean Platelet Volume 12.5 fL (9.4-12.4); Monocytes # 1.2 K/mcL (0.0-1.3); Monocytes % 7.8 %; Neutrophils # 13.6 K/mcL (1.6-8.9); Red Blood Count 2.87 M/mcL (3.82-4.97); Red Cell Distribution Width 16.4 % (11.5-14.5); Segmented Neutrophils % 85.5 %
[2018-03-01 10:06] LABS: Calcium 8.4 mg/dL (8.6-10.3); Potassium 3.7 mEq/L (3.5-5.1)
[2018-03-01 10:15] LABS: Platelet Count 71 K/mcL (140-400)
[2018-03-01] MEDS: Sodium Bicarbonate 150 MEQ in D5% in Water 1,000 ML IVC SCH (13:20)
--- NOTE | 2018-03-01 16:02 | Event Note ---
Date of Encounter: 03/01/18 Time of Encounter: 16:01 Pt is scheduled for PEG tube tomorrow with Dr. Gillis. NPO at midnight.
--- NOTE | 2018-03-01 18:12 | Infectious Disease Consult ---
Date of Encounter: 03/01/18 Time of Encounter: 17:56 Assessment and Plan (1) Severe sepsis Status: Acute Assessment and plan: Has to SIRS criteria plus acute kidney injury Likely source is multi lobar pneumonia Need to rule out intra-abdominal process including cholecystitis versus hepatitis versus ileus (2) HCAP (healthcare-associated pneumonia) Status: Acute Assessment and plan: Causative organism not clear likely due to aspiration but she resides at a care home will boraden coverage to cover MRSA check urine legionella and pneumococcal antigen; check RIP get sputum culture if possible. continue zosyn continue azithromycin add vancomycin with goal trough around 15 (3) Elevated LFTs Status: Acute Assessment and plan: etiology? repeat LFT's to rule out worseing cholcystitits might need repeat CT to see if ileus/constipation has resolved as well and make sure there is no gall bladder thickening and pericholicystic if LFT's much higher, might get hepA serology (4) Neuroleptic-induced tardive dyskinesia Status: Acute (5) History of seizures Status: Chronic (6) Schizoaffective disorder, bipolar type Status: Chronic (7) Encephalopathy Status: Acute (8) Constipation Status: Chronic Qualifiers: Constipation type: drug induced constipation Qualified Code(s): K59.03 - Drug induced constipation (9) Neuroleptic malignant syndrome Status: Acute (10) Acute renal failure (ARF) Status: Acute Qualifiers: Acute renal failure type: unspecified Qualified Code(s): N17.9 - Acute kidney failure, unspecified (11) Severe protein-calorie malnutrition Status: Acute (12) Decubitus ulcer of ankle, stage 1 Status: Acute Qualifiers: Laterality: left Qualified Code(s): L89.521 - Pressure ulcer of left ankle , stage 1 (13) Decubitus ulcer of coccygeal region, stage 1 Status: Acute Infectious Disease HPI - Data of Consult Patient: new to practice Consult date: 03/01/18 Requesting Physician: Rashaad Aguilar Primary Care Provider: Jimenez Zavala MD - Consult Narrative Reason for consult: sepsis History of present illness: Ms. Mendoza is a 37 year old female Patient is a 37-year-old woman who presented to [facility] on February 22 for altered mental status, we are consulted today on March 01 for "leukocytosis with fever and failure of treatment." Patient is a 88-year-old woman with past medical history including anorexia brain injury, COPD, GERD, hypertension, seizure disorder, schizophrenia and thyroid disease who presented to the emergency department from the care home with increased lethargy and dysphagia. Most of the information was taken from medical records. Patient unable to give me any information and family at bedside including mom and dad are not the best historians. Since admission, patient has been having intermittent fevers with a MAXIMUM TEMPERATURE of 102.3. Patient also had episodes of tachycardia. She had no tachypnea. Presenting labs on admission revealed WT 15.6, no bands and 77% neutrophils. BUN and creatinine were 28 and 1.5 respectively. Patient also had a urinalysis done which was contaminated and no cultures were obtained. Patient will have a troponin leak and elevated liver function tests including AST ALT and alkaline phosphatase at 42/53/143. Blood cultures obtained on 8915 that was negative and repeat cultures on 03/01 are no growth to date. Patient had a CT of the chest on 02/22 bilateral pulmonary infiltrates and mild bilateral pleural effusion and evidence of chronic granulomatosis disease. A CT abdomen and pelvis on 02/22 revealed limited examination due to paucity of intra- abdominal fat with crowding of soft tissue structures and largest to burden disease throughout mildly dilated loops of colon up to 7 cm findings may represent sequelae of severe constipation or a functional ileus. CT had revealed minimal sphenoid sinusitis. RAÚL of the brain on 02/24 revealed diffuse high signal in the central [place] which could mean pontine neoplasm, central pontine myelinolysis, or demyelination. Patient was started on vancomycin, Zosyn and azithromycin. Patient continues to have fevers and her WBC jumped up to 30,000 on 02/25 with 90% neutrophils. Patient apparently was seen by psychiatry on 02/24 and there was concern for neuroleptic malignant syndrome. Haldol and other antipsychotics were stopped and patient was started on dantrolene. CK level and myoglobulin were also ordered and came back within normal limits. Patient was afebrile from 02/24 in the AM until 02/28 in the pm. Repeat CXR reveals bilateral perihilar airspace disease and bilateral pleural effusion. It appears that the patient also failed swallow eval and she is scheduled for possible PEG tube placement tomorrow. CC: Rashaad Aguilar Past Med Surg Social Fam HX - Past Medical History Medical history: arthritis, asthma, COPD, GERD, hypertension, migraine, osteoporosis, seizures, thyroid disease, syncope, other Additional medical history: PARKINSONS Psychiatric history: schizophrenia - Past Surgical History Surgical History: orthopedic, other, sinus surgery, other Additional surgical history: KNEE SURGERY - Social History Smoking Status: Unknown if ever smoked Smokeless Tobacco Status: No Alcohol use: unknown Drug use: unknown - Family History Father Living Status: Mother Daughter Family Member Ethnicity: Non- Mother Family Member Ethnicity: Non- Living Status: Still Living Hx Family Respiratory Disorders: No Hx Family Cancer: No Infectious Disease-CN:Meds Omeprazole [PriLOSEC] 20 mg PO DAILY 07/28/15 [History] Levothyroxine [Synthroid] 125 mcg PO QAM 11/30/15 [History] Amantadine [Symmetrel] 100 mg PO QID 07/09/17 [History] Topiramate [Topamax] 200 mg PO TID 07/09/17 [History] traZODone [TraZODone] 50 mg PO HS PRN 07/09/17 [History] Acetaminophen [Tylenol] 650 mg PO Q8HR PRN 02/23/18 [History] Ascorbic Acid [Vitamin C] 250 mg PO DAILY 02/23/18 [History] Calcium Citrate 950 mg PO DAILY 02/23/18 [History] Cyanocobalamin (Vitamin B-12) [Vitamin B-12] 100 mcg PO DAILY 02/23/18 [History] Docusate Sodium [Colace] 100 mg PO BID 02/23/18 [History] Ergocalciferol (VITAMIN D2) [Vitamin D2] 50,000 unit PO QWEEK 02/23/18 [History] Folic Acid 1 mg PO DAILY 02/23/18 [History] Gabapentin [Neurontin] 1,200 mg PO 0800 02/23/18 [History] Gabapentin [Neurontin] 900 mg PO 1400,2000 02/23/18 [History] Haloperidol [Haldol] 1 mg PO BID 02/23/18 [History] HydrOXYzine 10 mg PO Q6H PRN 02/23/18 [History] LORazepam [Ativan] 0.5 mg PO TID PRN 02/23/18 [History] Loratadine [Claritin] 10 mg PO DAILY 02/23/18 [History] Magnesium Oxide [Mgo] 400 mg PO BID 02/23/18 [History] Melatonin 6 mg PO HS PRN 02/23/18 [History] Mirtazapine [Remeron] 15 mg PO HS 02/23/18 [History] Multivitamin [One Daily Multivitamin] 1 tab PO DAILY 02/23/18 [History] OLANZapine [Zyprexa] 7.5 mg PO Q12H 02/23/18 [History] Ondansetron ODT [Zofran ODT] 4 mg SL Q6HR PRN 02/23/18 [History] Polyethylene Glycol 3350 [MiraLAX] 17 gm PO DAILY 02/23/18 [History] Tramadol HCl [Ultram] 50 mg PO Q6H PRN 02/23/18 [History] Zinc Sulfate [Zinc Sulfate] 220 mg PO DAILY 02/23/18 [History] clonazePAM [Klonopin] 1 mg PO TID PRN 02/23/18 [History] 3 Allergy/AdvReac Type Severity Reaction Status Date / Time aripiprazole [From Abilify] Allergy Difficulty Verified 02/23/18 07:51 Breathing aspirin Allergy Difficulty Verified 02/23/18 07:51 Breathing ibuprofen Allergy Difficulty Verified 02/23/18 07:51 Breathing latex Allergy Difficulty Verified 02/23/18 07:51 Breathing metronidazole [From Flagyl] Allergy Difficulty Verified 02/23/18 07:51 Breathing naproxen [From Aleve] Allergy Difficulty Verified 02/23/18 07:51 Breathing Sulfa (Sulfonamide AdvReac Vomiting Verified 02/23/18 07:51 Antibiotics) pea Allergy Unknown unsure Uncoded 02/23/18 07:51 ROS unobtainable: due to mental status Exam - Constitutional Vitals: Temp Pulse Resp BP Pulse Ox 97.8 F 65 16 124/66 100 03/01/18 15:37 03/01/18 15:37 03/01/18 15:37 03/01/18 15:37 03/01/18 15:37 General appearance: febrile, thin, no cooperative - Head Head exam: Present: atraumatic, normocephalic - Eye Eye exam: Present: EOMI, PERRL, sclera anicteric - ENT ENT exam: Present: mucous membranes dry Additional comments: no oral lesions - Neck Additional comments: no masses, trachea midline, no stridor - Respiratory Additional comments: air sounds audible both lung pimentel with bilateral ronchi. poor inspiratory effort - Cardiovascular Cardiovascular exam: Present: RRR, +S1, +S2 - GI/Abdominal GI/Abdominal exam: Present: firm, hypoactive bowel sounds, soft. Absent: distended, guarding - Extremities Exam Additional comments: cachectic with muscle waisting. no ovious pathology - Neurological Exam Neurological exam: Absent: alert, oriented X3 - Psychiatric Psychiatric exam: Present: agitated, anxious - Skin Skin exam: Absent: rash Additional comments: dry skin Infectious Disease CN: Results - Labs CBC & Chem 7: 03/01/18 09:25 03/01/18 09:25 Cultures: Cultures 03/01/18 12:12 Blood Culture - Preliminary Peripheral Venipuncture Culture is incubating and being continuously monitored for growth. Final report to follow. 03/01/18 12:14 Blood Culture - Preliminary Peripheral Venipuncture Culture is incubating and being continuously monitored for growth. Final report to follow. Serology: Serology 02/25/18 Range/Units 09:45 Urine Myoglobin <1 (0-1) mg/L - VTE Documentation of Mechanical Device: Intermittent pneumatic compression device Consult Discharge Plan - Plan Referrals: Jimenez Zavala MD [Primary Care Provider] - (this patient is from an ECF no PCP appointment needed)
--- NOTE | 2018-03-01 19:47 | Anesthesia Evaluation PreOp ---
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 History: Seizures (epileptic, last >1+ yrs ago), Other (Migraines, Bipolar, depression, Suicide attempt, schizophrenia, Encephalopathy, Tardive dyskinesia with extensive head, perioral and upper extremity tremors) Other Medical History: Renal (ARF), Thyroid, GERD, Other (Severe protein- calorie malnutrition) Anesthesia History: Past Anesthesia (leep, ex lap, EGD/Colonoscopy) Alcohol Use: unknown Drug use: unknown Medications and Allergies Omeprazole [PriLOSEC] 20 mg PO DAILY 07/28/15 [History] Levothyroxine [Synthroid] 125 mcg PO QAM 11/30/15 [History] Amantadine [Symmetrel] 100 mg PO QID 07/09/17 [History] Topiramate [Topamax] 200 mg PO TID 07/09/17 [History] traZODone [TraZODone] 50 mg PO HS PRN 07/09/17 [History] Acetaminophen [Tylenol] 650 mg PO Q8HR PRN 02/23/18 [History] Ascorbic Acid [Vitamin C] 250 mg PO DAILY 02/23/18 [History] Calcium Citrate 950 mg PO DAILY 02/23/18 [History] Cyanocobalamin (Vitamin B-12) [Vitamin B-12] 100 mcg PO DAILY 02/23/18 [History] Docusate Sodium [Colace] 100 mg PO BID 02/23/18 [History] Ergocalciferol (VITAMIN D2) [Vitamin D2] 50,000 unit PO QWEEK 02/23/18 [History] Folic Acid 1 mg PO DAILY 02/23/18 [History] Gabapentin [Neurontin] 1,200 mg PO 0800 02/23/18 [History] Gabapentin [Neurontin] 900 mg PO 1400,2000 02/23/18 [History] Haloperidol [Haldol] 1 mg PO BID 02/23/18 [History] HydrOXYzine 10 mg PO Q6H PRN 02/23/18 [History] LORazepam [Ativan] 0.5 mg PO TID PRN 02/23/18 [History] Loratadine [Claritin] 10 mg PO DAILY 02/23/18 [History] Magnesium Oxide [Mgo] 400 mg PO BID 02/23/18 [History] Melatonin 6 mg PO HS PRN 02/23/18 [History] Mirtazapine [Remeron] 15 mg PO HS 02/23/18 [History] Multivitamin [One Daily Multivitamin] 1 tab PO DAILY 02/23/18 [History] OLANZapine [Zyprexa] 7.5 mg PO Q12H 02/23/18 [History] Ondansetron ODT [Zofran ODT] 4 mg SL Q6HR PRN 02/23/18 [History] Polyethylene Glycol 3350 [MiraLAX] 17 gm PO DAILY 02/23/18 [History] Tramadol HCl [Ultram] 50 mg PO Q6H PRN 02/23/18 [History] Zinc Sulfate [Zinc Sulfate] 220 mg PO DAILY 02/23/18 [History] clonazePAM [Klonopin] 1 mg PO TID PRN 02/23/18 [History] 3 Allergy/AdvReac Type Severity Reaction Status Date / Time aripiprazole [From Abilify] Allergy Difficulty Verified 02/23/18 07:51 Breathing aspirin Allergy Difficulty Verified 02/23/18 07:51 Breathing ibuprofen Allergy Difficulty Verified 02/23/18 07:51 Breathing latex Allergy Difficulty Verified 02/23/18 07:51 Breathing metronidazole [From Flagyl] Allergy Difficulty Verified 02/23/18 07:51 Breathing naproxen [From Aleve] Allergy Difficulty Verified 02/23/18 07:51 Breathing Sulfa (Sulfonamide AdvReac Vomiting Verified 02/23/18 07:51 Antibiotics) pea Allergy Unknown unsure Uncoded 02/23/18 07:51 - Meds/Allergy Pre-op Review Medications Reviewed: Yes Allergies Reviewed: Yes Beta Blockers on Current Med List: No Anesthesia Results - Labs 03/01/18 09:25 03/01/18 09:25 - Imaging EKG: report reviewed (SINUS RHYTHM POSSIBLE RIGHT VENTRICULAR CONDUCTION DELAY ST DEVIATION AND MODERATE T-WAVE ABNORMALITY, CONSIDER ANTERIOR ISCHEMIA) Anesthesia Exam Vital Signs/O2 Sat, Most Current Temp Pulse Resp BP Pulse Ox 97.1 F L 61 17 125/67 100 03/01/18 19:07 03/01/18 19:07 03/01/18 19:07 08/16/18 19:07 03/01/18 19:07 - HEENT Pupil (Motor): Pupils equal, EOMI Mallampati: II Teeth: Edentulous Oral Opening: Greater than 3 - [employer] ADMINISTRATOR LOC: Disoriented, Uncooperative [employer] ADMIN[employer]RATOR Motor: Normal RUE, Normal LUE, Normal RLE, Normal LLE, Normal Face [employer] ADMINISTRATOR Sensory: Normal: RUE, LUE, RLE, LLE, Face - Cardiac Rhythm: Regular Murmur: None JVD: No Carotid Bruit: No - Pulmonary Breath Sounds: bilateral Clear Respiratory Effort: Symmetrical Anesthesia Assess/Plan ASA Score: 3, 4 Modified Savannah Scale for Level of Consciousness: Drowsy, but responsive to commands Anesthetic Plan: MAC Autologous Blood: Yes Monitoring Plan: Standard Monitors Recovery Plan: Other
[2018-03-02] MEDS: Piperacillin/Tazobactam 3.375 GM in 0.9 % Sodium Chloride Mini Bag 100 ML IVPB SCH ×3 (00:18→17:00)
[2018-03-02 05:08] LABS: Albumin 2.6 g/dL (3.5-5.7); Albumin/Globulin Ratio 1.2 (1.1-2.2); Bilirubin,Direct 0.2 mg/dL (0.0-0.2); Bilirubin,Indirect 0.3 mg/dL (0.0-1.2); Bilirubin,Total 0.5 mg/dL (0.3-1.0); Globulin 2.2 g/dL (2.4-3.5); Total Protein 4.8 g/dL (6.4-8.9)
[2018-03-02] MEDS: *HR* Heparin 5,000 UNIT/ML VIAL SQ SCH ×2 (05:57→17:24)
[2018-03-02] MEDS: Sodium Bicarbonate 150 MEQ in D5% in Water 1,000 ML IVC SCH (05:58)
[2018-03-02] MEDS: Pantoprazole 40 MG VIAL IVP SCH (08:18)
[2018-03-02] MEDS: Magic Mouthwash 10 ML UD Cup PO SCH ×4 (08:18→20:42)
[2018-03-02] MEDS: Bisacodyl 10 MG RECTAL SUPPOSITORY RC SCH (08:19)
[2018-03-02] MEDS: *HR* LORazepam 2 MG/ML VIAL IVP SCH ×2 (08:19→20:43)
[2018-03-02] MEDS: Levothyroxine Sodium 100 MCG VIAL IVP SCH (08:19)
[2018-03-02 09:17] LABS: Red Cell Distribution Width 16.3 % (11.5-14.5)
[2018-03-02 09:18] LABS: Eosinophils # 0.1 K/mcL (0.0-0.6); Eosinophils % 0.8 %; Hematocrit 26.4 % (35.3-44.9); Hemoglobin 8.3 g/dL (11.5-15.4); Immature Granulocytes % 0.7 % (0-4); Immature Platelets 12.5 % (1.1-6.1); Lymphocytes # 1.4 K/mcL (0.6-4.6); Lymphocytes % 13.2 %; Mean Corpuscular HGB Conc 31.4 g/dL (31.6-35.5); Mean Corpuscular Hemoglobin 31.2 pg (28.0-33.3); Mean Corpuscular Volume 99.2 fL (83.0-100.0); Mean Platelet Volume 12.4 fL (9.4-12.4); Monocytes # 1.1 K/mcL (0.0-1.3); Neutrophils # 7.9 K/mcL (1.6-8.9); Red Blood Count 2.66 M/mcL (3.82-4.97); Segmented Neutrophils % 75.3 %
[2018-03-02 09:20] LABS: Platelet Count 54 K/mcL (140-400)
[2018-03-02 09:45] LABS: BUN/Creatinine Ratio 43 (6-26); Blood Urea Nitrogen 46 mg/dL (6-20); Calcium 8.5 mg/dL (8.6-10.3); Carbon Dioxide 42 mEq/L (23-29); Chloride 108 mEq/L (98-107); Glucose 126 mg/dL (70-105); Osmolality,Calculated 323 (280-300); Potassium 3.7 mEq/L (3.5-5.1); Sodium 150 mEq/L (136-145); eGFR For Non-African Americans 57 (> 60)
--- NOTE | 2018-03-02 11:13 | Neurology Progress Note ---
Date of Encounter: 03/02/18 Time of Encounter: 11:11 Assessment and Plan (1) Altered mental status Current Visit: Yes Status: Acute Mental status have slowly improved and quite stable at this moment and she does have significant psychiatric disorder with tardive dyskinesia and features of drug induced Parkinson disease and baseline mental slowness. From neurology perspective she has been improving and stable. It will be the psychiatry's plan whether the patient still needs antipsychotic therapy or if she could be benefit from a different one or reduced dosing. At this movement i would sign off neurologically and reevaluate her at your request. Please continue medical and supportive care Qualifiers: Altered mental status type: somnolence Qualified Code(s): R40.0 - Somnolence Subjective Principal diagnosis: altered mental status Interval history: Patient seen and examined. This morning she appears wide awake and is able to answer simple questions such as showing me two fingers, and saying 'feeling good ', and telling me that she has no pain. She has severe bradykinesis and mental slowness which is usually her baseline condition. She has no fever. WBC and renal functions are improving. No seizure activity seen. Tremors are absent at this time Objective - Constitutional Vitals: Temp Pulse Resp BP Pulse Ox 96.8 F L 63 16 107/82 100 03/02/18 06:59 03/02/18 06:59 03/02/18 06:59 03/02/18 06:59 03/02/18 06:59 - Neurological Exam Sensorimotor examination: Present: other (Grossly intact) Motor Examination: Present: grossly full strength in all extremities, full strength in all major muscle groups (Patient has Parkinsonian features and very rigid but able move all extremities. Hand instructional leader are equal) Motor examination - right side: 4/5: deltoids, biceps, triceps, wrist flexion, wrist extension, loft patternmaker, hip flexors, tibialis Anterior, quadriceps, toe extension (EHL), plantarflexion Motor examination - left side: 4/5: deltoids, biceps, triceps, wrist flexion, wrist extension, hip flexors, loft patternmaker, quadriceps, tibialis Anterior, toe extension (EHL), plantarflexion Sensation intact: Present: intact (Grossly intact) Posture: Present: other (Less rigid today, nuchal rigidty also improved. ) Mental Status Examination: Present: awake, alert, oriented to person, follows commands appropriately, answers questions appropriately, opens eyes to voice, makes eye contact, follows simple commands, localizes noxious stimulation, answers questions by nodding yes or no, inattentive, impaired memory, cognitive impairment Cranial nerve examination: Present: PERRL (Pupils are equal in sizes and reactive), EOMI (no significant abnormalities noted), corneal reflexes brisk symmetrically, mastication intact, no facial asymmetry is present, no dysarthria (Dysarthric. Hesitate and high pitched voice), hearing is intact symmetrically, soft palate elevates bilaterally upon phonation (Unable to assess ), gag reflex intact, flexes SCM and trapezius muscles symmetrically with full power, tongue protrudes midline - VTE Documentation of Mechanical Device: Intermittent pneumatic compression device Results - Laboratory Findings CBC and BMP: 03/02/18 08:56 03/02/18 08:56 Abnormal lab findings: Abnormal lab results RBC 2.66 M/mcL (3.82-4.97) L 03/02/18 08:56 Hgb 8.3 g/dL (11.5-15.4) L 03/02/18 08:56 Hct 26.4 % (35.3-44.9) L 03/02/18 08:56 MCHC 31.4 g/dL (31.6-35.5) L 03/02/18 08:56 RDW 16.3 % (11.5-14.5) H 03/02/18 08:56 Plt Count 54 K/mcL (140-400) L 03/02/18 08:56 Hypersegmented Neuts Present (Not Present) A 02/27/18 04:26 Toxic Granulation Present (Not Present) A 02/27/18 04:26 Large Platelets Present (Not Present) A 02/27/18 04:26 Immature Plt Fraction 12.5 % (1.1-6.1) H 03/02/18 08:56 Anisocytosis 1+ (Not Present) A 02/27/18 04:26 Macrocytosis Present (Not Present) A 02/27/18 04:26 PT 13.6 Seconds (9.4-12.1) H 02/22/18 21:03 APTT 37.0 Seconds (26.0-36.0) H 02/22/18 21:03 D-Dimer 793 ng/mLFEU (0-500) H 02/22/18 21:03 Sodium 150 mEq/L (136-145) H 03/02/18 08:56 Chloride 108 mEq/L (98-107) H 03/02/18 08:56 Carbon Dioxide 42 mEq/L (23-29) H* 03/02/18 08:56 BUN 46 mg/dL (6-20) H 03/02/18 08:56 Est GFR (Non-Af Amer) 57 (> 60) L 03/02/18 08:56 BUN/Creatinine Ratio 43 (6-26) H 03/02/18 08:56 Glucose 126 mg/dL (70-105) H 03/02/18 08:56 POC Glucose 119 mg/dL (70-99) H 03/01/18 23:28 Calculated Osmolality 323 (280-300) H 03/02/18 08:56 Calcium 8.5 mg/dL (8.6-10.3) L 03/02/18 08:56 Iron 23 mcg/dL (50-170) L 02/25/18 08:28 % Saturation 9 % (15-50) L 02/25/18 08:28 Transferrin 193 mg/dL (203-362) L 02/25/18 08:28 Ferritin 1240 ng/mL (10-120) H 02/25/18 08:28 AST 43 Units/L (13-39) H 03/02/18 04:27 ALT 67 Units/L (7-52) H 03/02/18 04:27 Alkaline Phosphatase 135 Units/L (34-104) H 03/02/18 04:27 Troponin I 0.07 ng/mL (< 0.04) H* 02/23/18 09:39 Serum Total Protein 4.8 g/dL (6.4-8.9) L 03/02/18 04:27 Albumin 2.6 g/dL (3.5-5.7) L 03/02/18 04:27 Globulin 2.2 g/dL (2.4-3.5) L 03/02/18 04:27 Urine Clarity Turbid (Clear) A 02/22/18 21:19 Urine Ketones Trace mg/dL (Negative) H 02/22/18 21:19 Ur Leukocyte Esterase Small (Negative) H 02/22/18 21:19 Urine Microscopic RBC 5-15 per hpf (0-3) H 02/22/18 21:19 Urine Microscopic WBC 5-15 per hpf (0-3) H 02/22/18 21:19 Ur Squamous Epith Cells Many per lpf (None-Few) H 02/22/18 21:19 Ur Culture Indicated? NO. (NO) A 02/22/18 21:19 Vancomycin Trough 25 mcg/mL (5-10) H 02/25/18 01:44 Consult Discharge Plan - Plan Referrals: Jimenez Zavala MD [Primary Care Provider] - (this patient is from an [facility] no PCP appointment needed)
[2018-03-02] MEDS ORDERED: Lidocaine -MPF 2% 2 ML VIAL ONE (13:31)
[2018-03-02] MEDS ORDERED: *HR* Propofol 200 MG/20 ML VIAL IVP ONE (13:32)
[2018-03-02] MEDS ORDERED: EPHEDrine 50 MG/ML VIAL ONE (13:52)
--- NOTE | 2018-03-02 14:23 | Infectious Disease Progress No ---
Date of Encounter: 03/02/18 Time of Encounter: 14:20 - Assessment and Plan (1) Severe sepsis Current Visit: Yes Status: Acute Had 2 SIRS criteria plus acute kidney injury Likely source is multi lobar pneumonia No intra-abdominal process noted other than constipation Improved significantly once I broaden the antibiotics including vancomycin (2) HCAP (healthcare-associated pneumonia) Current Visit: Yes Status: Acute Causative organism not clear. Urine legionella and pneumococcal antigen negative Respiratory infectious panel pending Continues to improve Continue Zosyn Continue vancomycin Consider DC azithromycin Monitor labs and for drug toxicity Goal vancomycin trough 10-15 (3) Elevated LFTs Current Visit: Yes Status: Acute Etiology not clear Stable Would not pursue any further at this time (4) Neuroleptic-induced tardive dyskinesia Current Visit: No Status: Acute (5) History of seizures Current Visit: No Status: Chronic (6) Schizoaffective disorder, bipolar type Current Visit: No Status: Chronic (7) Encephalopathy Current Visit: No Status: Acute (8) Constipation Current Visit: Yes Status: Chronic Qualifiers: Constipation type: drug induced constipation Qualified Code(s): K59.03 - Drug induced constipation (9) Neuroleptic malignant syndrome Current Visit: Yes Status: Acute (10) Acute renal failure (ARF) Current Visit: Yes Status: Acute Qualifiers: Acute renal failure type: unspecified Qualified Code(s): N17.9 - Acute kidney failure, unspecified (11) Severe protein-calorie malnutrition Current Visit: Yes Status: Acute (12) Decubitus ulcer of ankle, stage 1 Current Visit: Yes Status: Acute Qualifiers: Laterality: left Qualified Code(s): L89.521 - Pressure ulcer of left ankle , stage 1 (13) Decubitus ulcer of coccygeal region, stage 1 Current Visit: Yes Status: Acute - Subjective Interval history: Patient seen and examined. Appears to be stable clinically. More awake today more alert today she is actually opening eyes and tracking me around the room as I move and nods yes and no but not sure she understands my questions. Afebrile 24 hours. Vital signs stable. WBC normalized Kidney function improved LFTs noted Blood cultures no growth to date. Urine legionella and pneumococcal antigen negative. CT abdomen and pelvis reveals constipation Infect Dis PN-Objective Data - Labs CBC & Chem 7: 03/02/18 08:56 08/17/18 08:56 Labs: Laboratory Results - last 24 hr 02/25/18 03/01/18 03/01/18 09:45 05:49 11:49 WBC RBC Hgb Hct MCV MCH MCHC RDW Plt Count MPV Immature Gran % Seg Neutrophils % Lymphocytes % Monocytes % Eosinophils % Basophils % Neutrophils # Lymphocytes # Monocytes # Eosinophils # Basophils # Immature Plt Fraction Sodium Potassium Chloride Carbon Dioxide BUN Creatinine Est GFR ( Amer) Est GFR (Non-Af Amer) BUN/Creatinine Ratio Glucose POC Glucose 112 H 120 H Calculated Osmolality Calcium Phosphorus Magnesium Total Bilirubin Direct Bilirubin Indirect Bilirubin AST ALT Alkaline Phosphatase Serum Total Protein Albumin Globulin Albumin/Globulin Ratio Urine Myoglobin <1 Urine Test 03/01/18 03/01/18 03/02/18 17:10 23:28 00:00 WBC RBC Hgb Hct MCV MCH MCHC RDW Plt Count MPV Immature Gran % Seg Neutrophils % Lymphocytes % Monocytes % Eosinophils % Basophils % Neutrophils # Lymphocytes # Monocytes # Eosinophils # Basophils # Immature Plt Fraction Sodium Potassium Chloride Carbon Dioxide BUN Creatinine Est GFR ( Amer) Est GFR (Non-Af Amer) BUN/Creatinine Ratio Glucose POC Glucose 126 H 119 H Calculated Osmolality Calcium Phosphorus Magnesium Total Bilirubin Direct Bilirubin Indirect Bilirubin AST ALT Alkaline Phosphatase Serum Total Protein Albumin Globulin Albumin/Globulin Ratio Urine Myoglobin Urine Test Negative 03/02/18 03/02/18 03/02/18 04:27 04:27 04:27 WBC RBC Hgb Hct MCV MCH MCHC RDW Plt Count MPV Immature Gran % Seg Neutrophils % Lymphocytes % Monocytes % Eosinophils % Basophils % Neutrophils # Lymphocytes # Monocytes # Eosinophils # Basophils # Immature Plt Fraction Sodium Potassium Chloride Carbon Dioxide BUN Creatinine Est GFR ( Amer) Est GFR (Non-Af Amer) BUN/Creatinine Ratio Glucose POC Glucose Calculated Osmolality Calcium Phosphorus 2.9 Magnesium 2.3 Total Bilirubin 0.5 Direct Bilirubin 0.2 Indirect Bilirubin 0.3 AST 43 H ALT 67 H Alkaline Phosphatase 135 H Serum Total Protein 4.8 L Albumin 2.6 L Globulin 2.2 L Albumin/Globulin Ratio 1.2 Urine Myoglobin Urine Test 03/02/18 03/02/18 08:56 08:56 WBC 10.5 RBC 2.66 L Hgb 8.3 L Hct 26.4 L MCV 99.2 MCH 31.2 MCHC 31.4 L RDW 16.3 H Plt Count 54 L MPV 12.4 Immature Gran % 0.7 Seg Neutrophils % 75.3 Lymphocytes % 13.2 Monocytes % 10.0 Eosinophils % 0.8 Basophils % 0.0 Neutrophils # 7.9 Lymphocytes # 1.4 Monocytes # 1.1 Eosinophils # 0.1 Basophils # 0.0 Immature Plt Fraction 12.5 H Sodium 150 H Potassium 3.7 Chloride 108 H Carbon Dioxide 42 H* BUN 46 H Creatinine 1.07 Est GFR ( Amer) > 60 Est GFR (Non-Af Amer) 57 L BUN/Creatinine Ratio 43 H Glucose 126 H POC Glucose Calculated Osmolality 323 H Calcium 8.5 L Phosphorus Magnesium Total Bilirubin Direct Bilirubin Indirect Bilirubin AST ALT Alkaline Phosphatase Serum Total Protein Albumin Globulin Albumin/Globulin Ratio Urine Myoglobin Urine Test Cultures: Cultures 03/02/18 00:00 Legionella Antigen - Final Urine,Catheterized Streptococcus pneumoniae Antigen (M - Final 03/01/18 12:12 Blood Culture - Preliminary Peripheral Venipuncture Culture is incubating and being continuously monitored for growth. Final report to follow. 03/01/18 12:14 Blood Culture - Preliminary Peripheral Venipuncture Culture is incubating and being continuously monitored for growth. Final report to follow. Serology 03/02/18 02/25/18 Range/Units 00:00 09:45 Urine Myoglobin <1 (0-1) mg/L Urine Test Negative (Negative) - Impressions Impressions Brain MRI 02/27/18 10:00 IMPRESSION: Stable MRI of the brain. Redemonstration of diffuse high signal within the [place] that is nonspecific as discussed above. No new finding. D/ / 02/27/2018 12:11:40 Sada Burks MD / [email or web address] Interpreting Provider: Sada Burks MD Chest X-Ray 03/01/18 10:14 IMPRESSION: Evidence for bilateral perihilar airspace disease and bilateral pleural effusions possibly related to pneumonia. D/ / 03/01/2018 11:22:35 Darrick Booth MD / [email or web address] Interpreting Provider: Darrick Booth MD Abdomen/Pelvis CT 03/02/18 09:30 IMPRESSION: 1. Decreased caliber of colon with dense barium and stool mixed from a recent modified barium swallow. No mucosal abnormalities. Pattern likely represents underlying constipation. 2. No evidence of proximal bowel obstruction. 3. Worsening bilateral pleural effusion with significant atelectasis in both lower lobes. There is also suspected ascites and anasarca. D/ / Ramón Coronado MD / Ramón Coronado MD Interpreting Provider: Ramón Coronado MD Exam - Constitutional Vitals: Temp Pulse Resp BP Pulse Ox 97.2 F L 55 18 139/80 100 03/02/18 14:19 03/02/18 14:19 03/02/18 14:19 03/02/18 14:19 03/02/18 14:19 General appearance: no acute distress, no febrile, no cooperative Exam: Cachectic - Eye Eye exam: Present: EOMI, PERRL - Respiratory Additional comments: Air sounds audible both lung pimentel. No wheezing or, rhonchi appreciated. - Cardiovascular Cardiovascular exam: Present: RRR, +S1, +S2 - GI/Abdominal GI/Abdominal exam: Present: soft. Absent: tenderness - Extremities Exam Extremities exam: Present: normal inspection Additional comments: Adequate perfusion - VTE Documentation of Mechanical Device: Intermittent pneumatic compression device Consult Discharge Plan - Plan Referrals: Jimenez Zavala MD [Primary Care Provider] - (this patient is from [facility] no PCP appointment needed)
[2018-03-02] MEDS: 0.9 % Sodium Chloride 1,000 ML IVC SCH (14:24)
--- NOTE | 2018-03-02 19:58 | Internal Med Progress Note ---
Hospitalist Progress Note - Encounter Date of Encounter: 03/02/18 Time of Encounter: 11:00 - Subjective Interval History: Patient still not communicating during the examination; neurology following and suspects patient getting closer to her baseline mentation. Discussed with patient's mother yesterday afternoon who states this has been patient's baseline for the last 2 months that sometimes she will have "good days and speak many words and other days will not say much at all." Patient has failed swallowing evaluation and nutrition recommendation for PEG tube which will be placed today Patient is now afebrile and leukocytosis has now resolved; infectious disease was consulted on 03/01/18 - Exam Vitals: Temp Pulse Resp BP Pulse Ox 97.8 F 85 18 157/72 93 03/02/18 19:46 03/02/18 19:46 03/02/18 19:46 03/02/18 19:46 03/02/18 19:46 Exam: Gen.: Nonacute distress, alert and oriented 0; nonverbal ENT: Mucosal membranes moist and whitish exudate improved Cardiovascular: Normal S1 and S2 regular rate rhythm no murmurs rubs or gallops Abdomen: Nondistended Extremities: No lower extremity edema Skin: Normal color - Assessment and Plan (1) Encephalopathy Current Visit: No Status: Acute Assessment and Plan: Patient continues not to communicate much as she has been doing for most of her hospital stay Neurology following and thinks patient is close to baseline. Patient's mother reports that she has not been communicating much for a couple months. Patient does have psych history (schizophrenia) and is off medications due to suspected NMS per psychiatry. Patient is now afebrile and leukocytosis has resolved on 7 day course of IV Zosyn for HAP. Infectious disease now following (2) HCAP (healthcare-associated pneumonia) Current Visit: Yes Status: Acute Assessment and Plan: CT angiogram of chest shows bilateral pulmonary infiltrates. Suspected aspiration. Patient is now afebrile and leukocytosis has resolved on 7 day course of IV Zosyn for HAP. Repeat blood cultures pending Infectious disease now following and appreciate recommendations (3) Oral thrush Current Visit: Yes Status: Acute Assessment and Plan: Patient with decreased whitish coating on oral mucosa Continue Magic mouthwash (4) Severe protein-calorie malnutrition Current Visit: Yes Status: Acute Assessment and Plan: Nutrition notes who have been consulted, patient has lost 79 pounds in 2 years and 33 pounds in the last 9 months. ECF states that patient has not been eating there as well Patient has also failed swallow eval Gen. surgery consulted for PEG tube placement today (5) Acute renal failure (ARF) Current Visit: Yes Status: Acute Assessment and Plan: Resolved; continue to monitor (6) Schizophrenia Current Visit: Yes Status: Chronic Assessment and Plan: Psychiatry was consulted with recommendations to discontinue patient's medications for schizophrenia (Haldol, clonazepam and trazodone) Recommendations to restart medications in 2 weeks Patient currently on IV Ativan as needed (7) Hypothyroidism Current Visit: Yes Status: Chronic Assessment and Plan: Continue levothyroxine (8) Essential hypertension Current Visit: Yes Status: Chronic Assessment and Plan: Well-controlled Continue to monitor (9) Tardive dyskinesia Current Visit: Yes Status: Chronic Assessment and Plan: Patient has chronic significant history of tardive dyskinesia with extensive head, perioral and upper extremity tremors. Patient does have a history of Parkinson's disease per neurology and stiffness could be baseline. (10) Neuroleptic malignant syndrome Current Visit: Yes Status: Acute Assessment and Plan: Neurology consulted and does not suspect NMS Will continue to monitor (11) DVT prophylaxis Current Visit: Yes Status: Acute Assessment and Plan: On subcutaneous heparin. - Time Spent with Patient Total time spent is greater than 50% in coordination of care (as documented) at patient's floor/unit and/or counseling patient: Internal Medicine: Result - Labs CBC & Chem 7: 03/02/18 08:56 03/02/18 08:56 Labs: Short CBC 03/02/18 Range/Units 08:56 WBC 10.5 (4.3-11.1) K/mcL Hgb 8.3 L (11.5-15.4) g/dL Hct 26.4 L (35.3-44.9) % Plt Count 54 L (140-400) K/mcL Neutrophils # 7.9 (1.6-8.9) K/mcL BMP 03/02/18 08:56 Sodium 150 H Potassium 3.7 Chloride 108 H Carbon Dioxide 42 H* BUN 46 H Creatinine 1.07 Glucose 126 H Calcium 8.5 L Liver Function 03/02/18 Range/Units 04:27 Total Bilirubin 0.5 (0.3-1.0) mg/dL Direct Bilirubin 0.2 (0.0-0.2) mg/dL AST 43 H (13-39) Units/L ALT 67 H (7-52) Units/L Alkaline Phosphatase 135 H (34-104) Units/L Albumin 2.6 L (3.5-5.7) g/dL - ABG Interpretation ABG results: PT/INR, D-dimer PT 13.6 Seconds (9.4-12.1) H 02/22/18 21:03 D-Dimer 793 ng/mLFEU (0-500) H 02/22/18 21:03 - Impressions Impressions Brain MRI 02/27/18 10:00 IMPRESSION: Stable MRI of the brain. Redemonstration of diffuse high signal within the [place] that is nonspecific as discussed above. No new finding. D/ / 02/27/2018 12:11:40 Sada Burks MD / [email or web address] Interpreting Provider: Sada Burks MD Abdomen/Pelvis CT 03/02/18 09:30 IMPRESSION: 1. Decreased caliber of colon with dense barium and stool mixed from a recent modified barium swallow. No mucosal abnormalities. Pattern likely represents underlying constipation. 2. No evidence of proximal bowel obstruction. 3. Worsening bilateral pleural effusion with significant atelectasis in both lower lobes. There is also suspected ascites and anasarca. D/ / Ramón Coronado MD / Ramón Coronado MD Interpreting Provider: Ramón Coronado MD - VTE Documentation of Mechanical Device: Intermittent pneumatic compression device Consult Discharge Plan - Plan Referrals: Jimenez Zvaala MD [Primary Care Provider] - (this patient is from an [facility] no PCP appointment needed) (5) Acute renal failure (ARF) Qualifiers: Acute renal failure type: unspecified Qualified Code(s): N17.9 - Acute kidney failure, unspecified (6) Schizophrenia Qualifiers: Schizophrenia type: unspecified Qualified Code(s): F20.9 - Schizophrenia, unspecified (7) Hypothyroidism Qualifiers: Hypothyroidism type: unspecified Qualified Code(s): E03.9 - Hypothyroidism, unspecified
[2018-03-03] MEDS: Piperacillin/Tazobactam 3.375 GM in 0.9 % Sodium Chloride Mini Bag 100 ML IVPB SCH ×3 (00:29→20:23)
[2018-03-03] MEDS: Sodium Bicarbonate 150 MEQ in D5% in Water 1,000 ML IVC SCH (00:29)
[2018-03-03] MEDS: OXYCODONE Oral CONC 10 MG/0.5 ML ORAL.SYG SL PRN (03:41)
[2018-03-03] MEDS: *HR* Heparin 5,000 UNIT/ML VIAL SQ SCH ×2 (05:52→18:01)
[2018-03-03 07:38] LABS: Magnesium 2.3 mg/dL (1.6-2.6); Phosphorous 2.6 mg/dL (2.7-4.5)
--- NOTE | 2018-03-03 07:56 | Internal Med Progress Note ---
Hospitalist Progress Note - Encounter Date of Encounter: 03/03/18 Time of Encounter: 11:00 - Subjective Interval History: Patient more alert this morning and was able to tell me her name and did not respond to some questions. - Exam Vitals: Temp Pulse Resp BP Pulse Ox 98.0 F 86 20 138/71 93 03/03/18 06:54 03/03/18 06:54 03/03/18 06:54 03/03/18 06:54 03/03/18 06:54 Exam: Gen.: Nonacute distress, alert and oriented 1 ENT: Mucosal membranes moist and whitish exudate improved Cardiovascular: Normal S1 and S2 regular rate rhythm no murmurs rubs or gallops Abdomen: Nondistended Extremities: No lower extremity edema Skin: Normal color - Assessment and Plan (1) HCAP (healthcare-associated pneumonia) Current Visit: Yes Status: Acute Assessment and Plan: CT angiogram of chest shows bilateral pulmonary infiltrates. Suspected aspiration. Patient is now afebrile and leukocytosis has resolved on 7 day course of IV Zosyn for HAP. Repeat blood cultures pending Infectious disease now following with recommendations to broaden coverage by adding vancomycin (2) Sepsis Current Visit: Yes Status: Suspected Assessment and Plan: Resolved; continue to monitor (3) Encephalopathy Current Visit: No Status: Acute Assessment and Plan: Patient continues not to communicate much as she has been doing for most of her hospital stay Neurology following and thinks patient is close to baseline. Patient's mother reports that she has not been communicating much for a couple months. Patient does have psych history (schizophrenia) and is off medications due to suspected NMS per psychiatry. Patient is now afebrile and leukocytosis has resolved on 7 day course of IV Zosyn for HAP. Infectious disease now following (4) Oral thrush Current Visit: Yes Status: Acute Assessment and Plan: Patient with decreased whitish coating on oral mucosa Continue Magic mouthwash (5) Severe protein-calorie malnutrition Current Visit: Yes Status: Acute Assessment and Plan: Nutrition notes who have been consulted, patient has lost 79 pounds in 2 years and 33 pounds in the last 9 months. ECF states that patient has not been eating there as well Patient has also failed swallow eval Gen. surgeryPEG tube placed Nutrition following for recommendations (6) Acute renal failure (ARF) Current Visit: Yes Status: Acute Assessment and Plan: Resolved; continue to monitor (7) Schizophrenia Current Visit: Yes Status: Chronic Assessment and Plan: Psychiatry was consulted with recommendations to discontinue patient's medications for schizophrenia (Haldol, clonazepam and trazodone) Recommendations to restart medications in 2 weeks Patient currently on IV Ativan as needed (8) Hypothyroidism Current Visit: Yes Status: Chronic Assessment and Plan: Continue levothyroxine (9) Essential hypertension Current Visit: Yes Status: Chronic Assessment and Plan: Well-controlled Continue to monitor (10) Tardive dyskinesia Current Visit: Yes Status: Chronic Assessment and Plan: Patient has chronic significant history of tardive dyskinesia with extensive head, perioral and upper extremity tremors. Patient does have a history of Parkinson's disease per neurology and stiffness could be baseline. (11) Neuroleptic malignant syndrome Current Visit: Yes Status: Ruled-out Assessment and Plan: Neurology consulted and does not suspect NMS Will continue to monitor (12) DVT prophylaxis Current Visit: Yes Status: Acute Assessment and Plan: On subcutaneous heparin. - Time Spent with Patient Total time spent is greater than 50% in coordination of care (as documented) at patient's floor/unit and/or counseling patient: Internal Medicine: Result - Labs CBC & Chem 7: 03/03/18 08:16 03/03/18 06:51 Labs: Short CBC 03/02/18 Range/Units 08:56 WBC 10.5 (4.3-11.1) K/mcL Hgb 8.3 L (11.5-15.4) g/dL Hct 26.4 L (35.3-44.9) % Plt Count 54 L (140-400) K/mcL Neutrophils # 7.9 (1.6-8.9) K/mcL BMP 03/02/18 08:56 Sodium 150 H Potassium 3.7 Chloride 108 H Carbon Dioxide 42 H* BUN 46 H Creatinine 1.07 Glucose 126 H Calcium 8.5 L - ABG Interpretation ABG results: PT/INR, D-dimer PT 13.6 Seconds (9.4-12.1) H 02/22/18 21:03 D-Dimer 793 ng/mLFEU (0-500) H 02/22/18 21:03 - Impressions Impressions Brain MRI 02/27/18 10:00 IMPRESSION: Stable MRI of the brain. Redemonstration of diffuse high signal within the [place] that is nonspecific as discussed above. No new finding. D/ / 02/27/2018 12:11:40 Sada Burks MD / [facility] Interpreting Provider: Sada Burks MD Abdomen/Pelvis CT 03/02/18 09:30 IMPRESSION: 1. Decreased caliber of colon with dense barium and stool mixed from a recent modified barium swallow. No mucosal abnormalities. Pattern likely represents underlying constipation. 2. No evidence of proximal bowel obstruction. 3. Worsening bilateral pleural effusion with significant atelectasis in both lower lobes. There is also suspected ascites and anasarca. D/ / Ramón Coronado MD / Ramón Coronado MD Interpreting Provider: Ramón Coronado MD - VTE Documentation of Mechanical Device: Intermittent pneumatic compression device Consult Discharge Plan - Plan Referrals: Jimenez Zavala MD [Primary Care Provider] - (this patient is from an [facility] no PCP appointment needed) (2) Sepsis Qualifiers: Sepsis type: sepsis due to unspecified organism Qualified Code(s): A41.9 - Sepsis, unspecified organism (6) Acute renal failure (ARF) Qualifiers: Acute renal failure type: unspecified Qualified Code(s): N17.9 - Acute kidney failure, unspecified (7) Schizophrenia Qualifiers: Schizophrenia type: unspecified Qualified Code(s): F20.9 - Schizophrenia, unspecified (8) Hypothyroidism Qualifiers: Hypothyroidism type: unspecified Qualified Code(s): E03.9 - Hypothyroidism, unspecified
[2018-03-03 08:02] LABS: BUN/Creatinine Ratio 44 (6-26); Blood Urea Nitrogen 46 mg/dL (6-20); Calcium 8.1 mg/dL (8.6-10.3); Carbon Dioxide 36 mEq/L (23-29); Chloride 108 mEq/L (98-107); Glucose 99 mg/dL (70-105); Osmolality,Calculated 324 (280-300); Potassium 3.7 mEq/L (3.5-5.1); Sodium 151 mEq/L (136-145); eGFR For Non-African Americans 59 (> 60)
[2018-03-03 08:51] LABS: Basophils % 0.1 %; Eosinophils % 0.2 %; Mean Corpuscular Volume 97.8 fL (83.0-100.0); Monocytes % 11.7 %
[2018-03-03 08:53] LABS: Hematocrit 26.4 % (35.3-44.9); Hemoglobin 8.2 g/dL (11.5-15.4); Immature Granulocytes % 1.1 % (0-4); Immature Platelets 12.8 % (1.1-6.1); Lymphocytes # 1.3 K/mcL (0.6-4.6); Lymphocytes % 10.1 %; Mean Corpuscular HGB Conc 31.1 g/dL (31.6-35.5); Mean Corpuscular Hemoglobin 30.4 pg (28.0-33.3); Mean Platelet Volume 13.4 fL (9.4-12.4); Monocytes # 1.5 K/mcL (0.0-1.3); Neutrophils # 9.5 K/mcL (1.6-8.9); Platelet Count 69 K/mcL (140-400); Red Cell Distribution Width 16.1 % (11.5-14.5); Segmented Neutrophils % 76.8 %
[2018-03-03] MEDS: Bisacodyl 10 MG RECTAL SUPPOSITORY RC SCH (09:23)
[2018-03-03] MEDS: Magic Mouthwash 10 ML UD Cup PO SCH ×4 (09:24→20:23)
[2018-03-03] MEDS: Levothyroxine Sodium 100 MCG VIAL IVP SCH (09:24)
[2018-03-03] MEDS: Pantoprazole 40 MG VIAL IVP SCH (09:24)
[2018-03-03] MEDS: *HR* LORazepam 2 MG/ML VIAL IVP SCH ×2 (09:24→20:23)
[2018-03-03] MEDS: 0.9 % Sodium Chloride 1,000 ML IVC SCH (10:14)
--- NOTE | 2018-03-03 13:43 | General Surgery Progress Note ---
<Brionna Cisneros E - Last Filed: 03/03/18 13:41> Date of Encounter: 03/03/18 Time of Encounter: 13:41 - Assessment and Plan (1) Severe protein-calorie malnutrition Current Visit: Yes Status: Acute PEG tube was placed yesterday. Can begin using PEG tube for tube feeds, per nutrition Surgery will sign off at this time, thank you for involving us in this patient' s care, if you have any concerns or questions please free to contact us. Subjective Patient reports: other (Patient is nonverbal and not seem to be in distress) Objective Vital Signs - Last 8 Hours Temp Pulse Resp BP Pulse Ox 03/03/18 11:02 98.0 F 79 20 142/71 93 03/03/18 06:54 98.0 F 86 20 138/71 93 Intake and Output 03/02/18 03/03/18 03/03/18 23:59 07:59 15:59 Intake Total 1500 / 1500 0 / 0 Output Total 250 / 250 550 / 550 Balance 1250 / 1250 -550 / -550 0 / 0 Intake: IV Fluids 1500 / 1500 Sodium Bicarbonate 150 MEQ In 1150 / 1150 Dextrose 5% 1,000 ML @ 75 mls/ hr IVC .[id number] [facility] Rx#: [id number] Zosyn 3.375 GM In 0.9 % Sodium 100 / 100 Chloride (Mini-Bag +) 100 ML @ 25 mls/hr IVPB Q8HR [facility] Rx#: [id number] Vancocin 750 MG In 0.9 % Sodium 250 / 250 Chloride 250 ML @ 250 mls/hr IVPB Q24H [facility] Rx#:[id number] Oral 0 / 0 Output: Catheter 250 / 250 550 / 550 Other: Meal Breakfast NPO Percent of Meal Consumed 0% Stool Size Moderate Stool Consistency soft Stool Color Brown # Bowel Movements 1 Weight 52.9 kg Blood Glucose* 116 80 90 Patient Weight 03/03/18 23:59 Weight 52.9 kg - General physical appearance well developed, no distress, chronically ill - Respiratory normal expansion, normal respiratory effort, clear to auscultation - Abdomen Abdomen: Present: bowel sounds present, soft, non tender Additional Comments: PEG tube properly seated, no drainage, no redness or warmth. - Musculoskeletal normal posture - Psychiatric other (Patient is nonverbal, nonresponsive, awake) - Labs 03/03/18 08:16 03/03/18 06:51 Diabetes panel 03/03/18 Range/Units 06:51 Sodium 151 H (136-145) mEq/L Potassium 3.7 (3.5-5.1) mEq/L Chloride 108 H (98-107) mEq/L Carbon Dioxide 36 H (23-29) mEq/L BUN 46 H (6-20) mg/dL Creatinine 1.04 (0.60-1.20) mg/dL Glucose 99 (70-105) mg/dL Calcium 8.1 L (8.6-10.3) mg/dL Calcium panel 03/03/18 Range/Units 06:51 Calcium 8.1 L (8.6-10.3) mg/dL Phosphorus 2.6 L (2.7-4.5) mg/dL Pituitary panel 03/03/18 Range/Units 06:51 Sodium 151 H (136-145) mEq/L Potassium 3.7 (3.5-5.1) mEq/L Chloride 108 H (98-107) mEq/L Carbon Dioxide 36 H (23-29) mEq/L BUN 46 H (6-20) mg/dL Creatinine 1.04 (0.60-1.20) mg/dL Glucose 99 (70-105) mg/dL Calcium 8.1 L (8.6-10.3) mg/dL Adrenal panel 03/03/18 Range/Units 06:51 Sodium 151 H (136-145) mEq/L Potassium 3.7 (3.5-5.1) mEq/L Chloride 108 H (98-107) mEq/L Carbon Dioxide 36 H (23-29) mEq/L BUN 46 H (6-20) mg/dL Creatinine 1.04 (0.60-1.20) mg/dL Glucose 99 (70-105) mg/dL Calcium 8.1 L (8.6-10.3) mg/dL - VTE Documentation of Mechanical Device: Intermittent pneumatic compression device Consult Discharge Plan - Plan Referrals: Jimenez Zavala MD [Primary Care Provider] - (this patient is from an ECF no PCP appointment needed) <Anastacio Catalan - Last Filed: 03/03/18 15:27> Date of Encounter: 03/03/18 Objective Vital Signs - Last 8 Hours Temp Pulse Resp BP Pulse Ox 03/03/18 11:02 98.0 F 79 20 142/71 93 Intake and Output 03/02/18 03/03/18 03/03/18 23:59 07:59 15:59 Intake Total 1500 / 1500 0 / 0 Output Total 250 / 250 550 / 550 Balance 1250 / 1250 -550 / -550 0 / 0 Intake: IV Fluids 1500 / 1500 Sodium Bicarbonate 150 MEQ In 1150 / 1150 Dextrose 5% 1,000 ML @ 75 mls/ hr IVC .[id number] [facility] Rx#: [id number] Zosyn 3.375 GM In 0.9 % Sodium 100 / 100 Chloride (Mini-Bag +) 100 ML @ 25 mls/hr IVPB Q8HR [facility] Rx#: [id number] Vancocin 750 MG In 0.9 % Sodium 250 / 250 Chloride 250 ML @ 250 mls/hr IVPB Q24H [facility] Rx#:[id number] Oral 0 / 0 Output: Catheter 250 / 250 550 / 550 Other: Meal Lunch Percent of Meal Consumed 0% Stool Size Moderate Stool Consistency soft Stool Color Brown # Bowel Movements 1 Weight 52.9 kg Blood Glucose* 116 80 90 Patient Weight 03/03/18 23:59 Weight 52.9 kg - Labs 03/03/18 08:16 03/03/18 06:51 Diabetes panel 03/03/18 Range/Units 06:51 Sodium 151 H (136-145) mEq/L Potassium 3.7 (3.5-5.1) mEq/L Chloride 108 H (98-107) mEq/L Carbon Dioxide 36 H (23-29) mEq/L BUN 46 H (6-20) mg/dL Creatinine 1.04 (0.60-1.20) mg/dL Glucose 99 (70-105) mg/dL Calcium 8.1 L (8.6-10.3) mg/dL Calcium panel 03/03/18 Range/Units 06:51 Calcium 8.1 L (8.6-10.3) mg/dL Phosphorus 2.6 L (2.7-4.5) mg/dL Pituitary panel 03/03/18 Range/Units 06:51 Sodium 151 H (136-145) mEq/L Potassium 3.7 (3.5-5.1) mEq/L Chloride 108 H (98-107) mEq/L Carbon Dioxide 36 H (23-29) mEq/L BUN 46 H (6-20) mg/dL Creatinine 1.04 (0.60-1.20) mg/dL Glucose 99 (70-105) mg/dL Calcium 8.1 L (8.6-10.3) mg/dL Adrenal panel 03/03/18 Range/Units 06:51 Sodium 151 H (136-145) mEq/L Potassium 3.7 (3.5-5.1) mEq/L Chloride 108 H (98-107) mEq/L Carbon Dioxide 36 H (23-29) mEq/L BUN 46 H (6-20) mg/dL Creatinine 1.04 (0.60-1.20) mg/dL Glucose 99 (70-105) mg/dL Calcium 8.1 L (8.6-10.3) mg/dL - Attending Attestation I examined this patient and my medical decision-making was reviewed with the Resident Physician. I agree with the documented findings, disposition and treatment plan as described except to the extent set forth below. Review the above assessment and evaluation and agree with the above plan. Okay to use PEG tube per nutrition recommendation. We will sign off.
[2018-03-03] MEDS ORDERED: Dextrose Gel 15 GM/37.5 ML TUBE PO PRN ×2 (18:33)
[2018-03-03] MEDS ORDERED: D5% in Water 1,000 ML IVC PRN (18:33)
[2018-03-03] MEDS ORDERED: *HR* Dextrose 50 % in Water (Syg) 50 ML SYRINGE IVP PRN (18:33)
[2018-03-03] MEDS ORDERED: *HR* Dextrose 50 % in Water (Syg) 50 ML SYRINGE ONE (18:37)
[2018-03-03] MEDS: Acetaminophen 650 MG RECTAL SUPP RC PRN (21:42)
[2018-03-04] MEDS: Piperacillin/Tazobactam 3.375 GM in 0.9 % Sodium Chloride Mini Bag 100 ML IVPB SCH ×3 (05:09→20:22)
[2018-03-04] MEDS: *HR* Heparin 5,000 UNIT/ML VIAL SQ SCH ×2 (05:09→17:35)
[2018-03-04] MEDS: 0.9 % Sodium Chloride 1,000 ML IVC SCH (05:10)
[2018-03-04 05:58] LABS: Magnesium 2.3 mg/dL (1.6-2.6); Phosphorous 3.4 mg/dL (2.7-4.5)
--- NOTE | 2018-03-04 08:17 | Internal Med Progress Note ---
Hospitalist Progress Note - Encounter Date of Encounter: 03/04/18 Time of Encounter: 11:00 - Subjective Interval History: Patient did not communicate this morning is in no acute distress G-Tube in place and tube feeds running without any complications - Exam Vitals: Temp Pulse Resp BP Pulse Ox 98.6 F 66 16 137/81 98 03/04/18 06:49 03/04/18 06:49 03/04/18 06:49 03/04/18 06:49 03/04/18 05:59 Exam: Gen.: Nonacute distress, alert and oriented 1 ENT: Mucosal membranes moist and whitish exudate improved Cardiovascular: Normal S1 and S2 regular rate rhythm no murmurs rubs or gallops Abdomen: Nondistended Extremities: No lower extremity edema Skin: Normal color - Assessment and Plan (1) HCAP (healthcare-associated pneumonia) Current Visit: Yes Status: Acute Assessment and Plan: CT angiogram of chest shows bilateral pulmonary infiltrates. Suspected aspiration. Patient is now afebrile and leukocytosis has resolved on 7 day course of IV Zosyn for HAP. Repeat blood cultures pending Infectious disease now following with recommendations to broaden coverage by adding vancomycin (2) Sepsis Current Visit: Yes Status: Suspected Assessment and Plan: Resolved; continue to monitor (3) Encephalopathy Current Visit: No Status: Acute Assessment and Plan: Patient continues not to communicate much as she has been doing for most of her hospital stay Neurology following and thinks patient is close to baseline. Patient's mother reports that she has not been communicating much for a couple months. Patient does have psych history (schizophrenia) and is off medications due to suspected NMS per psychiatry. Patient is now afebrile and leukocytosis has resolved on 7 day course of IV Zosyn for HAP. Infectious disease now following (4) Oral thrush Current Visit: Yes Status: Acute Assessment and Plan: Patient with decreased whitish coating on oral mucosa Continue Magic mouthwash (5) Severe protein-calorie malnutrition Current Visit: Yes Status: Acute Assessment and Plan: Nutrition notes who have been consulted, patient has lost 79 pounds in 2 years and 33 pounds in the last 9 months. ECF states that patient has not been eating there as well Patient has also failed swallow eval 03/03/18: Gen. surgery consulted and PEG tube placed 03/04/18: Nutrition with recommendations for tube feeds with Osmolite 1.2@ 10cc/ hr to titrate to goal of 55cc/hr (6) Acute renal failure (ARF) Current Visit: Yes Status: Acute Assessment and Plan: Resolved; continue to monitor (7) Schizophrenia Current Visit: Yes Status: Chronic Assessment and Plan: Psychiatry was consulted with recommendations to discontinue patient's medications for schizophrenia (Haldol, clonazepam and trazodone) Recommendations to restart medications in 2 weeks Patient currently on IV Ativan as needed (8) Hypothyroidism Current Visit: Yes Status: Chronic Assessment and Plan: TSH 1.3 on 01/23/18 Continue levothyroxine (9) Essential hypertension Current Visit: Yes Status: Chronic Assessment and Plan: Well-controlled Continue to monitor (10) Tardive dyskinesia Current Visit: Yes Status: Chronic Assessment and Plan: Patient has chronic significant history of tardive dyskinesia with extensive head, perioral and upper extremity tremors. Patient does have a history of Parkinson's disease per neurology and stiffness could be baseline. (11) Neuroleptic malignant syndrome Current Visit: Yes Status: Ruled-out Assessment and Plan: Neurology consulted and does not suspect NMS Will continue to monitor (12) DVT prophylaxis Current Visit: Yes Status: Acute Assessment and Plan: On subcutaneous heparin. - Time Spent with Patient Total time spent is greater than 50% in coordination of care (as documented) at patient's floor/unit and/or counseling patient: Internal Medicine: Result - Labs CBC & Chem 7: 03/04/18 08:02 03/04/18 04:47 Labs: Short CBC 03/03/18 Range/Units 08:16 WBC 12.4 H (4.3-11.1) K/mcL Hgb 8.2 L (11.5-15.4) g/dL Hct 26.4 L (35.3-44.9) % Plt Count 69 L (140-400) K/mcL Neutrophils # 9.5 H (1.6-8.9) K/mcL - ABG Interpretation ABG results: PT/INR, D-dimer PT 13.6 Seconds (9.4-12.1) H 02/22/18 21:03 D-Dimer 793 ng/mLFEU (0-500) H 02/22/18 21:03 - Impressions Impressions Gallbladder Ultrasound 03/03/18 00:00 IMPRESSION: 1. Coarse liver echotexture consistent with an element of cirrhosis. 2. Two echogenic lesions as described may represent hemangiomas or other neoplasm. A previous CT from 02/22/2018 suggests that one of these lesions is likely hemangioma. 3. No evidence of gallbladder or biliary disease. 4. Large pleural effusion and likely trace of ascites. D/ / 03/03/2018 11:29:44 Lucinda Tirado MD / [email or web address] Interpreting Provider: Lucinda Tirado MD - VTE Documentation of Mechanical Device: Intermittent pneumatic compression device Consult Discharge Plan - Plan Referrals: Jimenez Zavala MD [Primary Care Provider] - (this patient is from an [facility] no PCP appointment needed) (2) Sepsis Qualifiers: Sepsis type: sepsis due to unspecified organism Qualified Code(s): A41.9 - Sepsis, unspecified organism (6) Acute renal failure (ARF) Qualifiers: Acute renal failure type: unspecified Qualified Code(s): N17.9 - Acute kidney failure, unspecified (7) Schizophrenia Qualifiers: Schizophrenia type: unspecified Qualified Code(s): F20.9 - Schizophrenia, unspecified (8) Hypothyroidism Qualifiers: Hypothyroidism type: unspecified Qualified Code(s): E03.9 - Hypothyroidism, unspecified
[2018-03-04 08:42] LABS: Immature Granulocytes % 2.1 % (0-4); Monocytes % 15.8 %; Red Cell Distribution Width 16.7 % (11.5-14.5)
[2018-03-04 08:44] LABS: Basophils % 0.1 %; Hematocrit 27.3 % (35.3-44.9); Hemoglobin 8.6 g/dL (11.5-15.4); Immature Platelets 15.2 % (1.1-6.1); Lymphocytes % 12.3 %; Mean Corpuscular HGB Conc 31.5 g/dL (31.6-35.5); Mean Corpuscular Hemoglobin 31.6 pg (28.0-33.3); Mean Corpuscular Volume 100.4 fL (83.0-100.0); Mean Platelet Volume 13.7 fL (9.4-12.4); Monocytes # 1.3 K/mcL (0.0-1.3); Neutrophils # 5.9 K/mcL (1.6-8.9); Nucleated Red Blood Cells 0.2 /100 WBC (0); Red Blood Count 2.72 M/mcL (3.82-4.97); Segmented Neutrophils % 69.7 %
[2018-03-04 08:46] LABS: Lymphocytes # 1.1 K/mcL (0.6-4.6); Platelet Count 45 K/mcL (140-400)
[2018-03-04] MEDS: Pantoprazole 40 MG VIAL IVP SCH (08:51)
[2018-03-04] MEDS: Magic Mouthwash 10 ML UD Cup PO SCH ×4 (08:51→20:22)
[2018-03-04] MEDS: Levothyroxine Sodium 100 MCG VIAL IVP SCH (08:51)
[2018-03-04] MEDS: *HR* LORazepam 2 MG/ML VIAL IVP SCH ×2 (08:51→20:22)
[2018-03-04] MEDS: Bisacodyl 10 MG RECTAL SUPPOSITORY RC SCH (08:52)
[2018-03-04 08:54] LABS: BUN/Creatinine Ratio 47 (6-26); Blood Urea Nitrogen 54 mg/dL (6-20); Calcium 8.5 mg/dL (8.6-10.3); Carbon Dioxide 42 mEq/L (23-29); Chloride 109 mEq/L (98-107); Glucose 84 mg/dL (70-105); Osmolality,Calculated 334 (280-300); Potassium 3.8 mEq/L (3.5-5.1); Sodium 155 mEq/L (136-145); eGFR For Non-African Americans 52 (> 60)
[2018-03-04] MEDS ORDERED: Furosemide 40 MG/4 ML VIAL IVP ONE (11:57)
[2018-03-05] MEDS: *HR* Heparin 5,000 UNIT/ML VIAL SQ SCH (05:08)
[2018-03-05] MEDS: Piperacillin/Tazobactam 3.375 GM in 0.9 % Sodium Chloride Mini Bag 100 ML IVPB SCH ×3 (05:08→21:55)
[2018-03-05] MEDS: Acetaminophen 650 MG RECTAL SUPP RC PRN (05:30)
[2018-03-05 05:59] LABS: Magnesium 2.1 mg/dL (1.6-2.6); Phosphorous 3.6 mg/dL (2.7-4.5)
--- NOTE | 2018-03-05 08:22 | Internal Med Progress Note ---
Hospitalist Progress Note - Encounter Date of Encounter: 03/05/18 Time of Encounter: 11:00 - Subjective Interval History: Patient continues not to interact much during exam. Patient continues to have low-grade fevers with a MAXIMUM TEMPERATURE of 100.7 overnight G-Tube in place and tube feeds running without any complications - Exam Vitals: Temp Pulse Resp BP Pulse Ox 100.7 F H 81 17 152/81 97 03/05/18 07:29 03/05/18 07:47 03/05/18 07:29 03/05/18 07:29 03/05/18 07:29 Exam: Gen.: Nonacute distress, alert and oriented 0 ENT: Mucosal membranes moist and whitish exudate improved Cardiovascular: Normal S1 and S2 regular rate rhythm no murmurs rubs or gallops Abdomen: Nondistended Extremities: No lower extremity edema Skin: Normal color - Assessment and Plan (1) HCAP (healthcare-associated pneumonia) Current Visit: Yes Status: Acute Assessment and Plan: Patient continues to have low grade fevers with a MAXIMUM TEMPERATURE of 100.7 on day 8 of IV Zosyn and day 4 of vancomycin for HAP. Repeat blood cultures pending and chest x-ray this a.m. pending Infectious disease now following and appreciate any further recommendations (2) Sepsis Current Visit: Yes Status: Suspected Assessment and Plan: Resolved; continue to monitor (3) Encephalopathy Current Visit: No Status: Acute Assessment and Plan: Patient continues not to communicate much as she has been doing for most of her hospital stay Neurology following and thinks patient is close to baseline. Per family and prison, this has been patient's baseline for the last 2 months or so. She does have a history of acute brain injury in addition to Parkinson's disease and schizophrenia. (4) Oral thrush Current Visit: Yes Status: Acute Assessment and Plan: Patient with decreased whitish coating on oral mucosa Continue Magic mouthwash (5) Severe protein-calorie malnutrition Current Visit: Yes Status: Acute Assessment and Plan: Nutrition notes who have been consulted, patient has lost 79 pounds in 2 years and 33 pounds in the last 9 months. ECF states that patient has not been eating there as well Patient has also failed swallow eval Nutrition with recommendations for tube feeds with Osmolite 1.2@ 10cc/hr to titrate to goal of 55cc/hr (6) Acute renal failure (ARF) Current Visit: Yes Status: Acute Assessment and Plan: Resolved; continue to monitor (7) Schizophrenia Current Visit: Yes Status: Chronic Assessment and Plan: Psychiatry was consulted with recommendations to discontinue patient's medications for schizophrenia (Haldol, clonazepam and trazodone) Recommendations to restart medications in 2 weeks Patient currently on IV Ativan as needed (8) Hypothyroidism Current Visit: Yes Status: Chronic Assessment and Plan: TSH 1.3 on 01/23/18 Continue levothyroxine (9) Essential hypertension Current Visit: Yes Status: Chronic Assessment and Plan: Well-controlled Continue to monitor (10) Tardive dyskinesia Current Visit: Yes Status: Chronic Assessment and Plan: Patient has chronic significant history of tardive dyskinesia with extensive head, perioral and upper extremity tremors. Patient does have a history of Parkinson's disease per neurology and stiffness could be baseline. (11) Neuroleptic malignant syndrome Current Visit: Yes Status: Ruled-out Assessment and Plan: Neurology consulted and does not suspect NMS Will continue to monitor (12) DVT prophylaxis Current Visit: Yes Status: Acute Assessment and Plan: On subcutaneous heparin. - Time Spent with Patient Total time spent is greater than 50% in coordination of care (as documented) at patient's floor/unit and/or counseling patient: Internal Medicine: Result - Labs CBC & Chem 7: 03/05/18 09:33 03/05/18 09:33 Labs: Short CBC 03/04/18 Range/Units 08:02 WBC 8.5 (4.3-11.1) K/mcL Hgb 8.6 L (11.5-15.4) g/dL Hct 27.3 L (35.3-44.9) % Plt Count 45 L (140-400) K/mcL Neutrophils # 5.9 (1.6-8.9) K/mcL BMP 03/04/18 04:47 Sodium 155 H Potassium 3.8 Chloride 109 H Carbon Dioxide 42 H* BUN 54 H Creatinine 1.16 Glucose 84 Calcium 8.5 L - ABG Interpretation ABG results: PT/INR, D-dimer PT 13.6 Seconds (9.4-12.1) H 02/22/18 21:03 D-Dimer 793 ng/mLFEU (0-500) H 02/22/18 21:03 - VTE Documentation of Mechanical Device: Intermittent pneumatic compression device Consult Discharge Plan - Plan Referrals: Jimenez Zavala MD [Primary Care Provider] - (this patient is from an [facility] no PCP appointment needed) (2) Sepsis Qualifiers: Sepsis type: sepsis due to unspecified organism Qualified Code(s): A41.9 - Sepsis, unspecified organism (6) Acute renal failure (ARF) Qualifiers: Acute renal failure type: unspecified Qualified Code(s): N17.9 - Acute kidney failure, unspecified (7) Schizophrenia Qualifiers: Schizophrenia type: unspecified Qualified Code(s): F20.9 - Schizophrenia, unspecified (8) Hypothyroidism Qualifiers: Hypothyroidism type: unspecified Qualified Code(s): E03.9 - Hypothyroidism, unspecified
[2018-03-05] MEDS: Bisacodyl 10 MG RECTAL SUPPOSITORY RC SCH (08:41)
[2018-03-05] MEDS: *HR* LORazepam 2 MG/ML VIAL IVP SCH ×2 (08:52→21:56)
[2018-03-05] MEDS: Pantoprazole 40 MG VIAL IVP SCH (08:52)
[2018-03-05] MEDS: Levothyroxine Sodium 100 MCG VIAL IVP SCH (08:52)
[2018-03-05] MEDS: Magic Mouthwash 10 ML UD Cup PO SCH ×4 (08:52→21:56)
[2018-03-05 10:00] LABS: Hematocrit 24.8 % (35.3-44.9); Hemoglobin 7.9 g/dL (11.5-15.4); Immature Granulocytes % 2.3 % (0-4); Immature Platelets 10.3 % (1.1-6.1); Lymphocytes # 1.2 K/mcL (0.6-4.6); Mean Corpuscular HGB Conc 31.9 g/dL (31.6-35.5); Mean Corpuscular Hemoglobin 31.9 pg (28.0-33.3); Mean Platelet Volume 13.3 fL (9.4-12.4); Monocytes # 1.3 K/mcL (0.0-1.3); Monocytes % 15.5 %; Neutrophils # 5.7 K/mcL (1.6-8.9); Red Blood Count 2.48 M/mcL (3.82-4.97); Red Cell Distribution Width 16.8 % (11.5-14.5); Segmented Neutrophils % 68.2 %
[2018-03-05 10:08] LABS: Platelet Count 55 K/mcL (140-400)
[2018-03-05 10:42] LABS: Calcium 8.4 mg/dL (8.6-10.3); Potassium 3.3 mEq/L (3.5-5.1)
[2018-03-05] MEDS ORDERED: Furosemide 40 MG/4 ML VIAL IVP ONE (10:51)
[2018-03-05] MEDS ORDERED: Bisacodyl 10 MG RECTAL SUPPOSITORY RC PRN (10:57)
--- NOTE | 2018-03-05 11:06 | Infectious Disease Progress No ---
Date of Encounter: 03/05/18 Time of Encounter: 10:00 - Assessment and Plan (1) Severe sepsis Current Visit: Yes Status: Acute The patient had two SIRS criteria plus FAISAL and AMS on admission. Likely secondary to multi-lobar PNA. Improved. WBC normalized. Febrile over the weekend with Tmax 102. Her mental status seems to have worsened as well. Blood cultures drawn 03/01/18 are NGTD x 3 sets. Repeat blood cultures x 2 sets now. Repeat LFTs, amylase, and lipase. Per nursing, the patient has no tube feed residuals, so repeat aspiration is low on my differential. Repeat CXR now. Continue Vancomycin IV. Pharmacy to dose. Goal trough ~15. Continue Zosyn 3.375 grams IV Q8H. Duration of treatment depends on the clinical picture. Monitor renal function and for drug toxicity and dose-adjust antibiotics. (2) HCAP (healthcare-associated pneumonia) Current Visit: Yes Status: Acute Causative organism not clear. Urine legionella and pneumococcal antigen negative. Get RIP. Repeat CXR given the recurrence of fevers over the weekend. The patient could be aspirating, but, per nursing, she has not had an tube feed residuals and seems to be tolerating well. Continue Zosyn 3.375 grams IV Q8H. Continue vancomycin. Pharmacy to dose. Goal trough ~15. Duration of treatment depends on the clinical picture. Monitor renal function and for drug toxicity and dose-adjust antibiotics. (3) Encephalopathy Current Visit: No Status: Acute Etiology unclear: sepsis vs. NMS vs. other. MRI of the brain negative. Neurology and psych consulted. Unsure what the patient's baseline is, but it appears her mental status may have worsened over the weekend. Recommend neurology and psych to re-evaluate. (4) Elevated LFTs Current Visit: Yes Status: Acute Etiology not clear: medication vs. sepsis vs. other. RUQ UTS showed findings consistent with cirrhosis. Continue to trend. (5) Acute kidney injury superimposed on chronic kidney disease Current Visit: Yes Status: Acute Serum creatinine up a little today. Continue to trend. Dose-adjust antibiotics. Avoid nephrotoxins as able. (6) Thrombocytopenia Current Visit: Yes Status: Acute Etiology unclear: cirrhosis vs. other. Continue to trend. No acute bleeding noted on exam. Consider Hem/Onc to evaluate. (7) Severe protein-calorie malnutrition Current Visit: Yes Status: Acute PEG tube inserted 03/02 with tube feeds started. (8) Constipation Current Visit: Yes Status: Resolved Patient had two BMs yesterday and one today. Bowel regimen per the primary team. Qualifiers: Constipation type: drug induced constipation Qualified Code(s): K59.03 - Drug induced constipation (9) Decubitus ulcer of ankle, stage 1 Current Visit: Yes Status: Acute Clinically does not appear infected. Dressing changes per the wound care team. Qualifiers: Laterality: left Qualified Code(s): L89.521 - Pressure ulcer of left ankle , stage 1 (10) Decubitus ulcer of coccygeal region, stage 1 Current Visit: Yes Status: Acute Clinically does not appear infected. Dressing changes per the wound care team. (11) Hypernatremia Current Visit: No Status: Acute Further workup and management per the primary team. (12) Neuroleptic malignant syndrome Current Visit: Yes Status: Ruled-out Psychiatry and neurology consulted and have signed off. (13) Neuroleptic-induced tardive dyskinesia Current Visit: No Status: Acute (14) Schizoaffective disorder, bipolar type Current Visit: No Status: Chronic (15) History of seizures Current Visit: No Status: Chronic (16) Pleural effusion Current Visit: Yes Status: Acute RUQ UTS showed findings consistent with large right pleural effusion. Likely secondary to third-spacing due to the patient's poor nutritional status. Consider pulmonology to evaluate. (17) Liver lesion Current Visit: Yes Status: Acute RUQ UTS showed two echogenic lesions as described may represent hemangiomas or other neoplasm. A previous CT from 02/22/2018 suggests that one of these lesions is likely hemangioma. (18) Cirrhosis Current Visit: Yes Status: Acute RUQ UTS showed findings consistent with cirrhosis of the liver. MELD score 11. Qualifiers: Hepatic cirrhosis type: unspecified hepatic cirrhosis Ascites presence: with ascites Qualified Code(s): K74.60 - Unspecified cirrhosis of liver; R18.8 - Other ascites - Subjective Interval history: Patient seen and examined. No acute events noted overnight. Patient spiking fevers over the weekend with Tmax 102.9. Patient non-communicative and does not participate in exam. PEG tube placed 03/02/18 and tube feeds started. No residuals per nursing. Loose stool x 2 yesterday per documentation. Infect Dis PN-Objective Data - Labs CBC & Chem 7: 03/05/18 09:33 03/05/18 09:33 Labs: Laboratory Results - last 24 hr 03/04/18 03/04/18 03/04/18 12:45 19:25 20:14 WBC RBC Hgb Hct MCV MCH MCHC RDW Plt Count MPV Immature Gran % Seg Neutrophils % Lymphocytes % Monocytes % Eosinophils % Basophils % Neutrophils # Lymphocytes # Monocytes # Eosinophils # Basophils # Immature Plt Fraction Sodium Potassium Chloride Carbon Dioxide BUN Creatinine Est GFR ( Amer) Est GFR (Non-Af Amer) BUN/Creatinine Ratio Glucose POC Glucose 118 H Calculated Osmolality Calcium Phosphorus Magnesium Vancomycin Trough 17 H Specimen Rejected Hemolyzed 03/04/18 03/05/18 03/05/18 23:22 04:47 09:33 WBC RBC Hgb Hct MCV MCH MCHC RDW Plt Count MPV Immature Gran % Seg Neutrophils % Lymphocytes % Monocytes % Eosinophils % Basophils % Neutrophils # Lymphocytes # Monocytes # Eosinophils # Basophils # Immature Plt Fraction Sodium 157 H Potassium 3.3 L Chloride 109 H Carbon Dioxide 43 H* BUN 63 H Creatinine 1.26 H Est GFR ( Amer) 57 L Est GFR (Non-Af Amer) 47 L BUN/Creatinine Ratio 50 H Glucose 123 H POC Glucose 109 H Calculated Osmolality 343 H Calcium 8.4 L Phosphorus 3.6 Magnesium 2.1 Vancomycin Trough Specimen Rejected 03/05/18 09:33 WBC 8.4 RBC 2.48 L Hgb 7.9 L Hct 24.8 L MCV 100.0 MCH 31.9 MCHC 31.9 RDW 16.8 H Plt Count 55 L MPV 13.3 H Immature Gran % 2.3 Seg Neutrophils % 68.2 Lymphocytes % 14.0 Monocytes % 15.5 Eosinophils % 0.0 Basophils % 0.0 Neutrophils # 5.7 Lymphocytes # 1.2 Monocytes # 1.3 Eosinophils # 0.0 Basophils # 0.0 Immature Plt Fraction 10.3 H Sodium Potassium Chloride Carbon Dioxide BUN Creatinine Est GFR ( Amer) Est GFR (Non-Af Amer) BUN/Creatinine Ratio Glucose POC Glucose Calculated Osmolality Calcium Phosphorus Magnesium Vancomycin Trough Specimen Rejected Cultures: Cultures 03/05/18 09:35 Blood Culture - Preliminary Peripheral Venipuncture Culture is incubating and being continuously monitored for growth. Final report to follow. 03/05/18 09:33 Blood Culture - Preliminary Peripheral Venipuncture Culture is incubating and being continuously monitored for growth. Final report to follow. 03/02/18 00:00 Legionella Antigen - Final Urine,Catheterized Streptococcus pneumoniae Antigen (M - Final 03/01/18 12:12 Blood Culture - Preliminary Peripheral Venipuncture Culture is incubating and being continuously monitored for growth. Final report to follow. 03/01/18 12:14 Blood Culture - Preliminary Peripheral Venipuncture Culture is incubating and being continuously monitored for growth. Final report to follow. Serology 03/02/18 02/25/18 Range/Units 00:00 09:45 Urine Myoglobin <1 (0-1) mg/L Urine Test Negative (Negative) Exam - Constitutional Vitals: Temp Pulse Resp BP Pulse Ox 99.4 F 65 16 140/65 96 03/05/18 10:57 03/05/18 10:57 03/05/18 10:57 03/05/18 10:57 03/05/18 10:57 General appearance: average body habitus, no acute distress, no febrile - Head Head exam: Present: atraumatic, normal inspection, normocephalic - Eye Eye exam: Present: PERRL Pupils: Present: normal accommodation Additional comments: Pupils 7mm bilaterally. Brisk pupillary response. Gaze is fixed. Does not participate and EOM testing. - ENT ENT exam: Present: mucous membranes dry - Neck Neck exam: Present: normal inspection - Respiratory Respiratory exam: Present: CTAB. Absent: rales, respiratory distress, rhonchi, wheezes - Cardiovascular Cardiovascular exam: Present: RRR, +S1, +S2 - GI/Abdominal GI/Abdominal exam: Present: distended, normal bowel sounds, soft. Absent: tenderness Additional comments: PEG tube noted to the LUQ with tube feeds infusing. Bonilla catheter noted to be draining dark yellow urine. - Extremities Exam Extremities exam: Present: pedal edema (1+ BLE). Absent: joint swelling, tenderness - Neurological Exam Neurological exam: Present: altered (Eyes open, but does not follow commands, make eye contact, or track around room. Does not attempt to communicate. ) - Skin Skin exam: Present: dry, intact, normal color, warm - VTE Documentation of Mechanical Device: Intermittent pneumatic compression device Consult Discharge Plan - Plan Referrals: Jimenez Zavala MD [Primary Care Provider] - (this patient is from an ECF no PCP appointment needed) - Attending Attestation I examined this patient and my medical decision-making was reviewed with the Resident Physician. I agree with the documented findings, disposition and treatment plan as described except to the extent set forth below.
[2018-03-05 16:49] LABS: Adenovirus Not Detected (Not Detect); Bordetella Pertussis Not Detected (Not Detect); Chlamydophila pneumoniae Not Detected (Not Detect); Coronavirus 229E Not Detected (Not Detect); Coronavirus HKU1 Not Detected (Not Detect); Coronavirus NL63 Not Detected (Not Detect); Coronavirus OC43 Not Detected (Not Detect); Human Metapneumovirus Not Detected (Not Detect); Human Rhinovirus/Enterovirus Not Detected (Not Detect); Influenza A Subtype 2009 H1 Not Detected (Not Detect); Influenza A Untypeable Not Detected (Not Detect); Influenza B Not Detected (Not Detect); Mycoplasma pneumoniae Not Detected (Not Detect); Parainfluenza Virus 1 Not Detected (Not Detect); Parainfluenza Virus 2 Not Detected (Not Detect); Parainfluenza Virus 3 Not Detected (Not Detect); Parainfluenza Virus 4 Not Detected (Not Detect); Respiratory Syncytial Virus Not Detected (Not Detect)
[2018-03-06] MEDS: Acetaminophen 650 MG RECTAL SUPP RC PRN (04:27)
[2018-03-06] MEDS: Piperacillin/Tazobactam 3.375 GM in 0.9 % Sodium Chloride Mini Bag 100 ML IVPB SCH ×3 (04:30→21:46)
[2018-03-06] MEDS: *HR* LORazepam 2 MG/ML VIAL IVP SCH ×2 (07:50→21:46)
[2018-03-06] MEDS: Levothyroxine Sodium 100 MCG VIAL IVP SCH (07:50)
[2018-03-06] MEDS: Magic Mouthwash 10 ML UD Cup PO SCH ×5 (07:50→23:40)
[2018-03-06] MEDS: Pantoprazole 40 MG VIAL IVP SCH (07:50)
[2018-03-06] MEDS ORDERED: Potassium Chloride Elixir 20 MEQ/15 ML UDC GTUBE ONE ×2 (08:03→09:18)
[2018-03-06 09:06] LABS: Alanine Aminotransferase 54 Units/L (7-52); Albumin 2.8 g/dL (3.5-5.7); Albumin/Globulin Ratio 1.3 (1.1-2.2); Alkaline Phosphatase 163 Units/L (34-104); Aspartate Amino Transferase 78 Units/L (13-39); BUN/Creatinine Ratio 52 (6-26); Bilirubin,Direct 0.1 mg/dL (0.0-0.2); Bilirubin,Indirect 0.4 mg/dL (0.0-1.2); Bilirubin,Total 0.5 mg/dL (0.3-1.0); Blood Urea Nitrogen 59 mg/dL (6-20); Calcium 8.1 mg/dL (8.6-10.3); Carbon Dioxide 42 mEq/L (23-29); Chloride 108 mEq/L (98-107); Globulin 2.2 g/dL (2.4-3.5); Glucose 166 mg/dL (70-105); Osmolality,Calculated 342 (280-300); Potassium 2.9 mEq/L (3.5-5.1); Sodium 156 mEq/L (136-145); eGFR For Non-African Americans 54 (> 60)
[2018-03-06 09:21] LABS: Eosinophils % 0.2 %; Hemoglobin 7.1 g/dL (11.5-15.4); Lymphocytes # 0.9 K/mcL (0.6-4.6); Lymphocytes % 10.6 %; Mean Corpuscular HGB Conc 30.9 g/dL (31.6-35.5); Mean Corpuscular Hemoglobin 30.7 pg (28.0-33.3); Mean Corpuscular Volume 99.6 fL (83.0-100.0); Mean Platelet Volume 13.8 fL (9.4-12.4); Monocytes # 0.9 K/mcL (0.0-1.3); Monocytes % 11.1 %; Neutrophils # 6.5 K/mcL (1.6-8.9); Red Blood Count 2.31 M/mcL (3.82-4.97); Red Cell Distribution Width 17.2 % (11.5-14.5); Segmented Neutrophils % 77.1 %
[2018-03-06 09:23] LABS: Platelet Count 49 K/mcL (140-400)
--- NOTE | 2018-03-06 11:45 | Internal Med Progress Note ---
Hospitalist Progress Note - Encounter Date of Encounter: 03/06/18 Time of Encounter: 09:15 - Subjective Interval History: No verbal response but tracks with her eyes, Tmax 101.5 overnight. RN reports no issues with her tube feeds and has regular BMs. - Exam Vitals: Temp Pulse Resp BP Pulse Ox 97.9 F 66 18 133/65 93 03/06/18 10:37 03/06/18 10:37 03/06/18 10:37 03/06/18 10:37 03/06/18 10:37 Exam: General: Not in acute distress, alert but no verbal response. Tracks with her eyes Cardiovascular: Normal S1 and S2, regular rate and rhythm Abdomen: Soft, Non-distended Extremities: No lower extremity edema Skin: Normal color, no rash - Assessment and Plan (1) HCAP (healthcare-associated pneumonia) Current Visit: Yes Status: Acute Assessment and Plan: Patient continues to have fever, has been prolonged course of abx with IV Zosyn/ vancomycin (D9 and D5 respectively) unclear whether fever is due to infectious process Repeat blood cultures pending, CXR did not reveal any significant finding other than mild GGO in R lower zone which may represent edema or pneumonitis follow with ID prognosis extremely poor (2) Encephalopathy Current Visit: No Status: Acute Assessment and Plan: Patient continues not to communicate much as she has been doing for most of her hospital stay Neurology following and believes patient is close to baseline but has worsened over the weekend along with hypernatremia free water flushes have been increased to 200ml Q4 -> will increase further to 300 Q4 monitor BMP will speak to the family regarding the extremely poor prognosis, may require palliative input as well depending on the conversation (3) Hypernatremia Current Visit: Yes Status: Acute Assessment and Plan: increase free water flush to 300mg Q4 (4) Sepsis Current Visit: Yes Status: Suspected Assessment and Plan: Resolved; continue to monitor (5) Neuroleptic malignant syndrome Current Visit: Yes Status: Ruled-out Assessment and Plan: Initially suspected given fever, mydriasis, and the suspicious agents that patient had been on not actively treating with dantrolene as she had been improving without it, continuing ativan as she had been chronically on diazepam and continue to hold off anti-psychotics, at least for 2 weeks Will continue to monitor (6) Tardive dyskinesia Current Visit: Yes Status: Chronic Assessment and Plan: Patient has chronic significant history of tardive dyskinesia with extensive head, perioral and upper extremity tremors. Patient does have a history of Parkinson's disease per neurology and stiffness could be baseline. (7) Acute renal failure (ARF) Current Visit: Yes Status: Acute Assessment and Plan: Resolved; continue to monitor (8) Oral thrush Current Visit: Yes Status: Acute Assessment and Plan: Patient with decreased whitish coating on oral mucosa Continue Magic mouthwash (9) Hypothyroidism Current Visit: Yes Status: Chronic Assessment and Plan: TSH 1.3 on 01/23/18 Continue levothyroxine (10) Schizophrenia Current Visit: Yes Status: Chronic (11) DVT prophylaxis Current Visit: Yes Status: Acute Assessment and Plan: On subcutaneous heparin. - Time Spent with Patient Total time spent is greater than 50% in coordination of care (as documented) at patient's floor/unit and/or counseling patient: Plan of Care Discussed with: nurse Internal Medicine: Result - Labs CBC & Chem 7: 03/06/18 08:57 03/06/18 08:12 Labs: Short CBC 03/06/18 Range/Units 08:57 WBC 8.4 (4.3-11.1) K/mcL Hgb 7.1 L (11.5-15.4) g/dL Hct 23.0 L (35.3-44.9) % Plt Count 49 L (140-400) K/mcL Neutrophils # 6.5 (1.6-8.9) K/mcL BMP 03/06/18 08:12 Sodium 156 H Potassium 2.9 L Chloride 108 H Carbon Dioxide 42 H* BUN 59 H Creatinine 1.13 Glucose 166 H Calcium 8.1 L Liver Function 03/06/18 Range/Units 08:12 Total Bilirubin 0.5 (0.3-1.0) mg/dL Direct Bilirubin 0.1 (0.0-0.2) mg/dL AST 78 H (13-39) Units/L ALT 54 H (7-52) Units/L Alkaline Phosphatase 163 H (34-104) Units/L Albumin 2.8 L (3.5-5.7) g/dL - ABG Interpretation ABG results: PT/INR, D-dimer PT 13.6 Seconds (9.4-12.1) H 02/22/18 21:03 D-Dimer 793 ng/mLFEU (0-500) H 02/22/18 21:03 - Impressions Impressions Chest X-Ray 03/05/18 08:18 IMPRESSION: Asymmetric ground-glass opacification in the right lower lung zone with a small pleural effusion. Pattern may represent edema or developing pneumonitis. D/ / Ramón Coronado MD / Ramón Coronado MD Interpreting Provider: Ramón Coronado MD - VTE Documentation of Mechanical Device: Intermittent pneumatic compression device Consult Discharge Plan - Plan Referrals: Jimenez Zavala MD [Primary Care Provider] - (this patient is from an [facility] no PCP appointment needed) (4) Sepsis Qualifiers: Sepsis type: sepsis due to unspecified organism Qualified Code(s): A41.9 - Sepsis, unspecified organism (7) Acute renal failure (ARF) Qualifiers: Acute renal failure type: unspecified Qualified Code(s): N17.9 - Acute kidney failure, unspecified (9) Hypothyroidism Qualifiers: Hypothyroidism type: unspecified Qualified Code(s): E03.9 - Hypothyroidism, unspecified (10) Schizophrenia Qualifiers: Schizophrenia type: unspecified Qualified Code(s): F20.9 - Schizophrenia, unspecified
--- NOTE | 2018-03-06 12:41 | Infectious Disease Progress No ---
Date of Encounter: 03/06/18 Time of Encounter: 10:30 - Assessment and Plan (1) Severe sepsis Current Visit: Yes Status: Acute The patient had two SIRS criteria plus FAISAL and AMS on admission. Likely secondary to multi-lobar PNA. Improved. WBC normalized. Febrile over the weekend with Tmax 101.5. Her mental status seems marginally better today. Blood cultures drawn 03/01/18 are NGTD x 3 sets. Repeat blood cultures x 2 sets drawn 03/05/18 are pending. Per nursing, the patient has no tube feed residuals, so repeat aspiration is low on my differential. Repeat CXR showed RLL ground glass opacities with small pleural effusion: edema vs. pneumonitis. Continue Vancomycin IV. Pharmacy to dose. Goal trough ~15. Continue Zosyn 3.375 grams IV Q8H. Duration of treatment depends on the clinical picture. Monitor renal function and for drug toxicity and dose-adjust antibiotics. Check ESR, CRP, and procalcitonin. May need to transfer to tertiary care facility for higher level of care. Overall, prognosis is poor. Consider palliative care consult. (2) HCAP (healthcare-associated pneumonia) Current Visit: Yes Status: Acute Causative organism not clear. Urine legionella and pneumococcal antigen negative. Get RIP.--> negative. Repeat CXR given the recurrence of fevers over the weekend. The patient could be aspirating, but, per nursing, she has not had an tube feed residuals and seems to be tolerating well. Continue Zosyn 3.375 grams IV Q8H. Continue vancomycin. Pharmacy to dose. Goal trough ~15. Duration of treatment depends on the clinical picture. Monitor renal function and for drug toxicity and dose-adjust antibiotics. (3) Encephalopathy Current Visit: No Status: Acute Etiology unclear: sepsis vs. NMS vs. other. MRI of the brain negative. Neurology and psych consulted. Unsure what the patient's baseline is, but it appears her mental status may have worsened over the weekend. Recommend neurology and psych to re-evaluate. (4) Elevated LFTs Current Visit: Yes Status: Acute Etiology not clear: medication vs. sepsis vs. other. RUQ UTS showed findings consistent with cirrhosis. Repeat LFTs trending up. Recommend GI to evaluate. (5) Acute kidney injury superimposed on chronic kidney disease Current Visit: Yes Status: Acute Serum creatinine normal today. Continue to trend. Dose-adjust antibiotics. Avoid nephrotoxins as able. (6) Thrombocytopenia Current Visit: Yes Status: Acute Etiology unclear: cirrhosis vs. heparin vs. other. Continue to trend. No acute bleeding noted on exam. Consider stopping SQ heparin. Consider Hem/Onc to evaluate. (7) Severe protein-calorie malnutrition Current Visit: Yes Status: Acute PEG tube inserted 03/02 with tube feeds started. (8) Constipation Current Visit: Yes Status: Resolved Resolved. Bowel regimen per the primary team. Qualifiers: Constipation type: drug induced constipation Qualified Code(s): K59.03 - Drug induced constipation (9) Decubitus ulcer of ankle, stage 1 Current Visit: Yes Status: Acute Clinically does not appear infected. Dressing changes per the wound care team. Qualifiers: Laterality: left Qualified Code(s): L89.521 - Pressure ulcer of left ankle , stage 1 (10) Decubitus ulcer of coccygeal region, stage 1 Current Visit: Yes Status: Acute Clinically does not appear infected. Dressing changes per the wound care team. (11) Hypernatremia Current Visit: No Status: Acute Etiology unclear. Free H2O increased. Further workup and management per the primary team. (12) Neuroleptic malignant syndrome Current Visit: Yes Status: Ruled-out Psychiatry and neurology consulted and have signed off. (13) Neuroleptic-induced tardive dyskinesia Current Visit: No Status: Acute (14) Schizoaffective disorder, bipolar type Current Visit: No Status: Chronic (15) History of seizures Current Visit: No Status: Chronic (16) Pleural effusion Current Visit: Yes Status: Acute RUQ UTS showed findings consistent with large right pleural effusion. CXR showed small right pleural effusion. Improved likely secondary to diuresis. Likely secondary to third-spacing due to the patient's poor nutritional status. Further management per the primary team. (17) Liver lesion Current Visit: Yes Status: Acute RUQ UTS showed two echogenic lesions as described may represent hemangiomas or other neoplasm. A previous CT from 02/22/2018 suggests that one of these lesions is likely hemangioma. (18) Cirrhosis Current Visit: Yes Status: Acute RUQ UTS showed findings consistent with cirrhosis of the liver. MELD score 11. Qualifiers: Hepatic cirrhosis type: unspecified hepatic cirrhosis Ascites presence: with ascites Qualified Code(s): K74.60 - Unspecified cirrhosis of liver; R18.8 - Other ascites (19) Metabolic alkalosis Current Visit: Yes Status: Acute Etiology unclear: Low intra-vascular volume vs. cirrhosis vs. other. Recommend nephrology to evaluate. (20) Hypokalemia Current Visit: No Status: Acute Replacement per the primary team. - Subjective Interval history: Patient seen and examined. No acute events noted overnight. Patient continues to spike fevers with Tmax 101.5. Patient non-communicative and does not participate in exam. She does track with her eyes today. PEG tube placed and tube feeds started. No residuals per nursing. Loose stool x 2 yesterday per documentation, none today. Infect Dis PN-Objective Data - Labs CBC & Chem 7: 03/06/18 08:57 03/06/18 08:12 Labs: Laboratory Results - last 24 hr 03/04/18 03/05/18 03/05/18 17:43 06:06 10:03 WBC RBC Hgb Hct MCV MCH MCHC RDW Plt Count MPV Immature Gran % Seg Neutrophils % Lymphocytes % Monocytes % Eosinophils % Basophils % Neutrophils # Lymphocytes # Monocytes # Eosinophils # Basophils # Sodium Potassium Chloride Carbon Dioxide BUN Creatinine Est GFR ( Amer) Est GFR (Non-Af Amer) BUN/Creatinine Ratio Glucose POC Glucose 103 H 145 H 121 H Calculated Osmolality Calcium Magnesium Total Bilirubin Direct Bilirubin Indirect Bilirubin AST ALT Alkaline Phosphatase Serum Total Protein Albumin Globulin Albumin/Globulin Ratio Chlamy pneumoniae PCR Adenovirus (PCR) B. pertussis DNA (PCR) B.parapertussis DNA PCR Coronavirus OC43 (PCR) Coronavirus HKU1 (PCR) Coronavirus 229E (PCR) Coronavirus NL63 (PCR) Human Metapneumovir PCR Influenza A (H1) PCR Influ A (H1N1/09) PCR Influenza A (H3) PCR Influenza A Untype (PCR) Influenza Type B (PCR) M.pneumoniae DNA (PCR) Parainfluenza 1 (PCR) Parainfluenza 2 (PCR) Parainfluenza 3 (PCR) Parainfluenza 4 (PCR) RSV (PCR) Entero/Rhino (PCR) 03/05/18 03/05/18 03/05/18 12:29 14:04 18:07 WBC RBC Hgb Hct MCV MCH MCHC RDW Plt Count MPV Immature Gran % Seg Neutrophils % Lymphocytes % Monocytes % Eosinophils % Basophils % Neutrophils # Lymphocytes # Monocytes # Eosinophils # Basophils # Sodium Potassium Chloride Carbon Dioxide BUN Creatinine Est GFR ( Amer) Est GFR (Non-Af Amer) BUN/Creatinine Ratio Glucose POC Glucose 157 H 138 H Calculated Osmolality Calcium Magnesium Total Bilirubin Direct Bilirubin Indirect Bilirubin AST ALT Alkaline Phosphatase Serum Total Protein Albumin Globulin Albumin/Globulin Ratio Chlamy pneumoniae PCR Not Detected Adenovirus (PCR) Not Detected B. pertussis DNA (PCR) Not Detected B.parapertussis DNA PCR Not Detected Coronavirus OC43 (PCR) Not Detected Coronavirus HKU1 (PCR) Not Detected Coronavirus 229E (PCR) Not Detected Coronavirus NL63 (PCR) Not Detected Human Metapneumovir PCR Not Detected Influenza A (H1) PCR Not Detected Influ A (H1N1/09) PCR Not Detected Influenza A (H3) PCR Not Detected Influenza A Untype (PCR) Not Detected Influenza Type B (PCR) Not Detected M.pneumoniae DNA (PCR) Not Detected Parainfluenza 1 (PCR) Not Detected Parainfluenza 2 (PCR) Not Detected Parainfluenza 3 (PCR) Not Detected Parainfluenza 4 (PCR) Not Detected RSV (PCR) Not Detected Entero/Rhino (PCR) Not Detected 03/05/18 03/06/18 03/06/18 23:56 08:12 08:57 WBC 8.4 RBC 2.31 L Hgb 7.1 L Hct 23.0 L MCV 99.6 MCH 30.7 MCHC 30.9 L RDW 17.2 H Plt Count 49 L MPV 13.8 H Immature Gran % 1.0 Seg Neutrophils % 77.1 Lymphocytes % 10.6 Monocytes % 11.1 Eosinophils % 0.2 Basophils % 0.0 Neutrophils # 6.5 Lymphocytes # 0.9 Monocytes # 0.9 Eosinophils # 0.0 Basophils # 0.0 Sodium 156 H Potassium 2.9 L Chloride 108 H Carbon Dioxide 42 H* BUN 59 H Creatinine 1.13 Est GFR ( Amer) > 60 Est GFR (Non-Af Amer) 54 L BUN/Creatinine Ratio 52 H Glucose 166 H POC Glucose 146 H Calculated Osmolality 342 H Calcium 8.1 L Magnesium 2.0 Total Bilirubin 0.5 Direct Bilirubin 0.1 Indirect Bilirubin 0.4 AST 78 H ALT 54 H Alkaline Phosphatase 163 H Serum Total Protein 5.0 L Albumin 2.8 L Globulin 2.2 L Albumin/Globulin Ratio 1.3 Chlamy pneumoniae PCR Adenovirus (PCR) B. pertussis DNA (PCR) B.parapertussis DNA PCR Coronavirus OC43 (PCR) Coronavirus HKU1 (PCR) Coronavirus 229E (PCR) Coronavirus NL63 (PCR) Human Metapneumovir PCR Influenza A (H1) PCR Influ A (H1N1/09) PCR Influenza A (H3) PCR Influenza A Untype (PCR) Influenza Type B (PCR) M.pneumoniae DNA (PCR) Parainfluenza 1 (PCR) Parainfluenza 2 (PCR) Parainfluenza 3 (PCR) Parainfluenza 4 (PCR) RSV (PCR) Entero/Rhino (PCR) Cultures: Cultures 03/05/18 09:35 Blood Culture - Preliminary Peripheral Venipuncture Culture is incubating and being continuously monitored for growth. Final report to follow. 03/05/18 09:33 Blood Culture - Preliminary Peripheral Venipuncture Culture is incubating and being continuously monitored for growth. Final report to follow. 03/02/18 00:00 Legionella Antigen - Final Urine,Catheterized Streptococcus pneumoniae Antigen (M - Final 03/01/18 12:12 Blood Culture - Preliminary Peripheral Venipuncture Culture is incubating and being continuously monitored for growth. Final report to follow. 03/01/18 12:14 Blood Culture - Preliminary Peripheral Venipuncture Culture is incubating and being continuously monitored for growth. Final report to follow. Serology 03/05/18 03/02/18 02/25/18 Range/Units 14:04 00:00 09:45 Urine Myoglobin <1 (0-1) mg/L Urine Test Negative (Negative) Chlamy pneumoniae PCR Not Detected (Not Detect) Adenovirus (PCR) Not Detected (Not Detect) B. pertussis DNA (PCR) Not Detected (Not Detect) B.parapertussis DNA PCR Not Detected (Not Detect) Coronavirus OC43 (PCR) Not Detected (Not Detect) Coronavirus HKU1 (PCR) Not Detected (Not Detect) Coronavirus 229E (PCR) Not Detected (Not Detect) Coronavirus NL63 (PCR) Not Detected (Not Detect) Human Metapneumovir PCR Not Detected (Not Detect) Influenza A (H1) PCR Not Detected (Not Detect) Influ A (H1N1/09) PCR Not Detected (Not Detect) Influenza A (H3) PCR Not Detected (Not Detect) Influenza A Untype (PCR) Not Detected (Not Detect) Influenza Type B (PCR) Not Detected (Not Detect) M.pneumoniae DNA (PCR) Not Detected (Not Detect) Parainfluenza 1 (PCR) Not Detected (Not Detect) Parainfluenza 2 (PCR) Not Detected (Not Detect) Parainfluenza 3 (PCR) Not Detected (Not Detect) Parainfluenza 4 (PCR) Not Detected (Not Detect) RSV (PCR) Not Detected (Not Detect) Entero/Rhino (PCR) Not Detected (Not Detect) - Impressions Impressions Chest X-Ray 03/05/18 08:18 IMPRESSION: Asymmetric ground-glass opacification in the right lower lung zone with a small pleural effusion. Pattern may represent edema or developing pneumonitis. D/ / Ramón Coronado MD / Ramón Coronado MD Interpreting Provider: Ramón Coronado MD Exam - Constitutional Vitals: Temp Pulse Resp BP Pulse Ox 97.9 F 66 18 133/65 93 03/06/18 10:37 03/06/18 10:37 03/06/18 10:37 03/06/18 10:37 03/06/18 10:37 General appearance: no acute distress, thin, no febrile - Head Head exam: Present: atraumatic, normal inspection, normocephalic - Eye Eye exam: Present: PERRL (Pupils 5mm bilaterally) Pupils: Present: normal accommodation Additional comments: Moves eyes towards my voice when spoken to, but does not follow commands. - Neck Neck exam: Present: normal inspection - Respiratory Respiratory exam: Present: CTAB. Absent: rales, respiratory distress, rhonchi, wheezes - Cardiovascular Cardiovascular exam: Present: RRR, +S1, +S2 - GI/Abdominal GI/Abdominal exam: Present: normal bowel sounds, soft. Absent: distended, tenderness Additional comments: Bonilla catheter noted to be draining clear yellow urine. PEG tube noted with tube feeds at goal. - Extremities Exam Extremities exam: Present: normal inspection. Absent: joint swelling, pedal edema, tenderness - Neurological Exam Neurological exam: Present: altered (Moves eyes towards the sound of my voice, but does not answer questions, follow commands, or participate in the exam.) - Skin Skin exam: Present: dry, intact, pallor, warm - VTE Documentation of Mechanical Device: Intermittent pneumatic compression device Consult Discharge Plan - Plan Referrals: Jimenez Zavala MD [Primary Care Provider] - (this patient is from an [facility] no PCP appointment needed) - Attending Attestation I examined this patient and my medical decision-making was reviewed with the Resident Physician. I agree with the documented findings, disposition and treatment plan as described except to the extent set forth below.
[2018-03-06] MEDS: *HR* Heparin 5,000 UNIT/ML VIAL SQ SCH (18:01)
[2018-03-07 05:21] LABS: Eosinophils % 0.3 %; Red Cell Distribution Width 17.6 % (11.5-14.5); Segmented Neutrophils % 78.7 %
[2018-03-07 05:23] LABS: Basophils % 0.1 %; Hematocrit 23.6 % (35.3-44.9); Hemoglobin 7.2 g/dL (11.5-15.4); Immature Granulocytes % 1.3 % (0-4); Immature Platelets 14.1 % (1.1-6.1); Lymphocytes % 10.6 %; Mean Corpuscular HGB Conc 30.5 g/dL (31.6-35.5); Mean Corpuscular Hemoglobin 30.6 pg (28.0-33.3); Mean Corpuscular Volume 100.4 fL (83.0-100.0); Mean Platelet Volume 14.1 fL (9.4-12.4); Monocytes # 0.9 K/mcL (0.0-1.3); Neutrophils # 7.5 K/mcL (1.6-8.9); Nucleated Red Blood Cells 0.2 /100 WBC (0); Red Blood Count 2.35 M/mcL (3.82-4.97)
[2018-03-07 05:26] LABS: Platelet Count 50 K/mcL (140-400)
[2018-03-07 05:43] LABS: BUN/Creatinine Ratio 52 (6-26); Blood Urea Nitrogen 50 mg/dL (6-20); Calcium 7.8 mg/dL (8.6-10.3); Carbon Dioxide 37 mEq/L (23-29); Chloride 113 mEq/L (98-107); Glucose 147 mg/dL (70-105); Magnesium 1.8 mg/dL (1.6-2.6); Osmolality,Calculated 338 (280-300); Potassium 3.4 mEq/L (3.5-5.1); Sodium 156 mEq/L (136-145); eGFR For Non-African Americans > 60 (> 60)
[2018-03-07] MEDS: Piperacillin/Tazobactam 3.375 GM in 0.9 % Sodium Chloride Mini Bag 100 ML IVPB SCH ×2 (08:52→17:26)
[2018-03-07] MEDS: Magic Mouthwash 10 ML UD Cup PO SCH ×4 (08:53→20:36)
[2018-03-07] MEDS: Levothyroxine Sodium 100 MCG VIAL IVP SCH (08:53)
[2018-03-07] MEDS: *HR* LORazepam 2 MG/ML VIAL IVP SCH ×2 (08:54→20:36)
[2018-03-07] MEDS: *HR* Heparin 5,000 UNIT/ML VIAL SQ SCH ×2 (08:55→17:26)
--- NOTE | 2018-03-07 12:38 | Infectious Disease Progress No ---
Date of Encounter: 03/07/18 Time of Encounter: 12:36 - Assessment and Plan (1) Severe sepsis Current Visit: Yes Status: Acute The patient had two SIRS criteria plus FAISAL and AMS on admission. Likely secondary to multi-lobar PNA. Improved. WBC normalized. Febrile overnight with Tmax 100.3. Her mental status seems better today. Blood cultures drawn 03/01/18 are NGTD x 3 sets. Repeat blood cultures x 2 sets drawn 03/05/18 are NGTD. Per nursing, the patient has no tube feed residuals, so repeat aspiration is low on my differential. Repeat CXR showed RLL ground glass opacities with small pleural effusion: edema vs. pneumonitis. Continue Vancomycin IV. Pharmacy to dose. Goal trough ~15. Continue Zosyn 3.375 grams IV Q8H. Duration of treatment depends on the clinical picture. Monitor renal function and for drug toxicity and dose-adjust antibiotics. Check ESR, CRP, and procalcitonin. --> ESR and CRP normal. Procalcitonin pending. Etiology of persistent fevers and altered mental status remains unclear, but infectious etiology low on my differential. Consider central fever vs. drug fever vs. other. She has had a prolonged course of IV antibiotics with little to now improvement. May consider stopping all antibiotics and observing. Discussed with the primary team who plans to speak with family regarding goals of care if/when they are available, so will await their decision and continue current regimen for now. May need to transfer to tertiary care facility for higher level of care. Overall, prognosis is poor. Consider palliative care consult. (2) HCAP (healthcare-associated pneumonia) Current Visit: Yes Status: Acute Causative organism not clear. Urine legionella and pneumococcal antigen negative. Get RIP.--> negative. Repeat CXR given the recurrence of fevers over the weekend. The patient could be aspirating, but, per nursing, she has not had an tube feed residuals and seems to be tolerating well. Continue Zosyn 3.375 grams IV Q8H. Continue vancomycin. Pharmacy to dose. Goal trough ~15. Duration of treatment depends on the clinical picture. Monitor renal function and for drug toxicity and dose-adjust antibiotics. (3) Encephalopathy Current Visit: No Status: Acute Etiology unclear: sepsis vs. NMS vs. other. MRI of the brain negative. Neurology and psych consulted. Unsure what the patient's baseline is, but it appears her mental status may have worsened over the weekend. It does seem marginally better today. Recommend neurology and psych to re-evaluate. (4) Elevated LFTs Current Visit: Yes Status: Acute Etiology not clear: medication vs. sepsis vs. other. RUQ UTS showed findings consistent with cirrhosis. Repeat LFTs trending up. Recommend GI to evaluate. (5) Acute kidney injury superimposed on chronic kidney disease Current Visit: Yes Status: Acute Serum creatinine normal today. Continue to trend. Dose-adjust antibiotics. Avoid nephrotoxins as able. (6) Thrombocytopenia Current Visit: Yes Status: Acute Etiology unclear: cirrhosis vs. heparin vs. other. Continue to trend. No acute bleeding noted on exam. Consider stopping SQ heparin. Consider Hem/Onc to evaluate. (7) Severe protein-calorie malnutrition Current Visit: Yes Status: Acute PEG tube inserted 03/02 with tube feeds started. (8) Constipation Current Visit: Yes Status: Resolved Resolved. Bowel regimen per the primary team. Qualifiers: Constipation type: drug induced constipation Qualified Code(s): K59.03 - Drug induced constipation (9) Decubitus ulcer of ankle, stage 1 Current Visit: Yes Status: Acute Clinically does not appear infected. Dressing changes per the wound care team. Qualifiers: Laterality: left Qualified Code(s): L89.521 - Pressure ulcer of left ankle , stage 1 (10) Decubitus ulcer of coccygeal region, stage 1 Current Visit: Yes Status: Acute Clinically does not appear infected. Dressing changes per the wound care team. (11) Hypernatremia Current Visit: No Status: Acute Etiology unclear. Free H2O increased. Further workup and management per the primary team. (12) Neuroleptic malignant syndrome Current Visit: Yes Status: Ruled-out Psychiatry and neurology consulted and have signed off. (13) Neuroleptic-induced tardive dyskinesia Current Visit: No Status: Acute (14) Schizoaffective disorder, bipolar type Current Visit: No Status: Chronic (15) History of seizures Current Visit: No Status: Chronic (16) Pleural effusion Current Visit: Yes Status: Acute RUQ UTS showed findings consistent with large right pleural effusion. CXR showed small right pleural effusion. Improved likely secondary to diuresis. Likely secondary to third-spacing due to the patient's poor nutritional status. Further management per the primary team. (17) Liver lesion Current Visit: Yes Status: Acute RUQ UTS showed two echogenic lesions as described may represent hemangiomas or other neoplasm. A previous CT from 02/22/2018 suggests that one of these lesions is likely hemangioma. (18) Cirrhosis Current Visit: Yes Status: Acute RUQ UTS showed findings consistent with cirrhosis of the liver. MELD score 11. Qualifiers: Hepatic cirrhosis type: unspecified hepatic cirrhosis Ascites presence: with ascites Qualified Code(s): K74.60 - Unspecified cirrhosis of liver; R18.8 - Other ascites (19) Metabolic alkalosis Current Visit: Yes Status: Acute Etiology unclear: Low intra-vascular volume vs. cirrhosis vs. other. Recommend nephrology to evaluate. (20) Hypokalemia Current Visit: No Status: Acute Replacement per the primary team. - Subjective Interval history: Patient seen and examined. No acute events noted overnight. Patient continues to spike fevers with Tmax 100.3 overnight. Patient appears more alert. She answers "yes" when asked if her abdomen hurt. She does track with her eyes today and follows some commands. PEG tube placed 03/02/18 and tube feeds started. No residuals per nursing. Loose stool x 2 yesterday per documentation, none today. Infect Dis PN-Objective Data - Labs CBC & Chem 7: 03/07/18 04:32 03/07/18 04:32 Labs: Laboratory Results - last 24 hr 03/06/18 03/06/18 03/06/18 05:51 10:40 14:15 WBC RBC Hgb Hct MCV MCH MCHC RDW Plt Count MPV Immature Gran % Seg Neutrophils % Lymphocytes % Monocytes % Eosinophils % Basophils % Neutrophils # Lymphocytes # Monocytes # Eosinophils # Basophils # Nucleated RBCs/100 WBC Immature Plt Fraction ESR 3 Sodium Potassium Chloride Carbon Dioxide BUN Creatinine Est GFR ( Amer) Est GFR (Non-Af Amer) BUN/Creatinine Ratio Glucose POC Glucose 130 H 147 H Calculated Osmolality Calcium Magnesium C-Reactive Protein Blood Type Antibody Screen 03/06/18 03/06/18 03/07/18 14:15 17:33 00:30 WBC RBC Hgb Hct MCV MCH MCHC RDW Plt Count MPV Immature Gran % Seg Neutrophils % Lymphocytes % Monocytes % Eosinophils % Basophils % Neutrophils # Lymphocytes # Monocytes # Eosinophils # Basophils # Nucleated RBCs/100 WBC Immature Plt Fraction ESR Sodium Potassium Chloride Carbon Dioxide BUN Creatinine Est GFR ( Amer) Est GFR (Non-Af Amer) BUN/Creatinine Ratio Glucose POC Glucose 166 H 147 H Calculated Osmolality Calcium Magnesium C-Reactive Protein < 5 Blood Type Antibody Screen 03/07/18 03/07/18 03/07/18 04:32 04:32 04:32 WBC 9.5 RBC 2.35 L Hgb 7.2 L Hct 23.6 L MCV 100.4 H MCH 30.6 MCHC 30.5 L RDW 17.6 H Plt Count 50 L MPV 14.1 H Immature Gran % 1.3 Seg Neutrophils % 78.7 Lymphocytes % 10.6 Monocytes % 9.0 Eosinophils % 0.3 Basophils % 0.1 Neutrophils # 7.5 Lymphocytes # 1.0 Monocytes # 0.9 Eosinophils # 0.0 Basophils # 0.0 Nucleated RBCs/100 WBC 0.2 H Immature Plt Fraction 14.1 H ESR Sodium 156 H Potassium 3.4 L Chloride 113 H Carbon Dioxide 37 H BUN 50 H Creatinine 0.96 Est GFR ( Amer) > 60 Est GFR (Non-Af Amer) > 60 BUN/Creatinine Ratio 52 H Glucose 147 H POC Glucose Calculated Osmolality 338 H Calcium 7.8 L Magnesium 1.8 C-Reactive Protein Blood Type A NEGATIVE Antibody Screen NEGATIVE Cultures: Cultures 03/01/18 12:12 Blood Culture - Final Peripheral Venipuncture No growth. Final report. 03/01/18 12:14 Blood Culture - Final Peripheral Venipuncture No growth. Final report. 03/05/18 09:35 Blood Culture - Preliminary Peripheral Venipuncture Culture is incubating and being continuously monitored for growth. Final report to follow. 03/05/18 09:33 Blood Culture - Preliminary Peripheral Venipuncture Culture is incubating and being continuously monitored for growth. Final report to follow. 03/02/18 00:00 Legionella Antigen - Final Urine,Catheterized Streptococcus pneumoniae Antigen (M - Final Serology 03/05/18 03/02/18 02/25/18 Range/Units 14:04 00:00 09:45 Urine Myoglobin <1 (0-1) mg/L Urine Test Negative (Negative) Chlamy pneumoniae PCR Not Detected (Not Detect) Adenovirus (PCR) Not Detected (Not Detect) B. pertussis DNA (PCR) Not Detected (Not Detect) B.parapertussis DNA PCR Not Detected (Not Detect) Coronavirus OC43 (PCR) Not Detected (Not Detect) Coronavirus HKU1 (PCR) Not Detected (Not Detect) Coronavirus 229E (PCR) Not Detected (Not Detect) Coronavirus NL63 (PCR) Not Detected (Not Detect) Human Metapneumovir PCR Not Detected (Not Detect) Influenza A (H1) PCR Not Detected (Not Detect) Influ A (H1N1/09) PCR Not Detected (Not Detect) Influenza A (H3) PCR Not Detected (Not Detect) Influenza A Untype (PCR) Not Detected (Not Detect) Influenza Type B (PCR) Not Detected (Not Detect) M.pneumoniae DNA (PCR) Not Detected (Not Detect) Parainfluenza 1 (PCR) Not Detected (Not Detect) Parainfluenza 2 (PCR) Not Detected (Not Detect) Parainfluenza 3 (PCR) Not Detected (Not Detect) Parainfluenza 4 (PCR) Not Detected (Not Detect) RSV (PCR) Not Detected (Not Detect) Entero/Rhino (PCR) Not Detected (Not Detect) Exam - Constitutional Vitals: Temp Pulse Resp BP Pulse Ox 100.6 F H 68 16 136/69 92 03/07/18 11:08 03/07/18 11:08 03/07/18 11:08 03/07/18 11:08 03/07/18 11:08 General appearance: cooperative, no acute distress, thin - Head Head exam: Present: atraumatic, normal inspection, normocephalic - Eye Eye exam: Present: normal appearance, PERRL (Pupils 7mm, but equal and reactive. ) - ENT ENT exam: Present: mucous membranes dry - Neck Neck exam: Present: normal inspection - Respiratory Respiratory exam: Present: CTAB. Absent: rales, respiratory distress, rhonchi, wheezes - Cardiovascular Cardiovascular exam: Present: RRR, +S1, +S2 - GI/Abdominal GI/Abdominal exam: Present: normal bowel sounds, soft. Absent: distended, tenderness Additional comments: PEG tube noted to the LUQ with tube feeds at goal. Bonilla catheter noted to be draining clear yellow urine. - Extremities Exam Extremities exam: Present: normal inspection. Absent: joint swelling, pedal edema, tenderness - Neurological Exam Neurological exam: Present: alert, no focal deficits (ZUNIGA x 4 spontaneously and on command.), strengths equal and symetr throughout (BUE strength weak, but appears symmetrical.) - Skin Skin exam: Present: dry, intact, normal color, warm - VTE Documentation of Mechanical Device: Intermittent pneumatic compression device Consult Discharge Plan - Plan Referrals: Jimenez Zavala MD [Primary Care Provider] - (this patient is from [facility] no PCP appointment needed) - Attending Attestation I examined this patient and my medical decision-making was reviewed with Alisa Lopez CNP. I agree with the documented findings, disposition and treatment plan as described except to the extent set forth below.
[2018-03-07] MEDS ORDERED: Potassium Chloride 40 MEQ, Lidocaine 1% 2 ML in D5% in Water 500 ML IVPB ONE (14:22)
--- NOTE | 2018-03-07 15:16 | Internal Med Progress Note ---
Hospitalist Progress Note - Encounter Date of Encounter: 03/07/18 Time of Encounter: 14:00 - Subjective Interval History: Slightly more alert today, tries to tell me something which I could not understand. Tmax 100.5 overnight. - Exam Vitals: Temp Pulse Resp BP Pulse Ox 100.6 F H 68 16 136/69 92 03/07/18 11:08 03/07/18 11:08 03/07/18 11:08 03/07/18 11:08 03/07/18 11:08 Exam: General: Not in acute distress, alert and has some verbal output. Tracks with her eyes Cardiovascular: Normal S1 and S2, regular rate and rhythm Abdomen: Soft, Non-distended Extremities: No lower extremity edema Skin: Normal color, no rash - Assessment and Plan (1) HCAP (healthcare-associated pneumonia) Current Visit: Yes Status: Acute Assessment and Plan: Patient continues to have fever, has been prolonged course of abx with IV Zosyn/ vancomycin unclear whether fever is due to infectious process, ?drug fever ?central cause Repeat blood cultures pending, CXR did not reveal any significant finding other than mild GGO in R lower zone which may represent edema or pneumonitis code status has been extensively discussed with the family, DNRCCA will continue abx for the time being, follow with ID prognosis extremely poor, she may eventually be transitioned to hospice (2) Encephalopathy Current Visit: No Status: Acute Assessment and Plan: Patient continues not to communicate much as she has been doing for most of her hospital stay Neurology following and believes patient is close to baseline but has worsened over the weekend along with hypernatremia free water flushes have been increased to 200ml Q4 -> will increase further to 450ml Q4 monitor BMP (3) Cirrhosis Current Visit: Yes Status: Acute Assessment and Plan: new diagnosis, unclear etiology but given her poor prognosis to start with, declined further workup ensure daily BM to prevent hepatic encephalopathy (4) Hypernatremia Current Visit: Yes Status: Acute Assessment and Plan: increase free water flush to 450ml Q4 (5) Sepsis Current Visit: Yes Status: Suspected Assessment and Plan: Resolved; continue to monitor (6) Neuroleptic malignant syndrome Current Visit: Yes Status: Ruled-out Assessment and Plan: Initially suspected given fever, mydriasis, and the suspicious agents that patient had been on not actively treating with dantrolene as she had been improving without it, continuing ativan as she had been chronically on diazepam and continue to hold off anti-psychotics, at least for 2 weeks Will continue to monitor (7) Tardive dyskinesia Current Visit: Yes Status: Chronic Assessment and Plan: Patient has chronic significant history of tardive dyskinesia with extensive head, perioral and upper extremity tremors. Patient does have a history of Parkinson's disease per neurology and stiffness could be baseline. (8) Acute renal failure (ARF) Current Visit: Yes Status: Acute Assessment and Plan: Resolved; continue to monitor (9) Oral thrush Current Visit: Yes Status: Acute Assessment and Plan: Patient with decreased whitish coating on oral mucosa Continue Magic mouthwash (10) Hypothyroidism Current Visit: Yes Status: Chronic Assessment and Plan: TSH 1.3 on 01/23/18 Continue levothyroxine (11) Schizophrenia Current Visit: Yes Status: Chronic Assessment and Plan: Psychiatry was consulted with recommendations to discontinue patient's medications for schizophrenia (Haldol, clonazepam and trazodone) Recommendations to restart medications in 2 weeks Patient currently on IV Ativan as needed (12) DVT prophylaxis Current Visit: Yes Status: Acute Assessment and Plan: On subcutaneous heparin. - Time Spent with Patient Total time spent is greater than 50% in coordination of care (as documented) at patient's floor/unit and/or counseling patient: Internal Medicine: Result - Labs CBC & Chem 7: 03/07/18 04:32 03/07/18 04:32 Labs: Short CBC 03/07/18 Range/Units 04:32 WBC 9.5 (4.3-11.1) K/mcL Hgb 7.2 L (11.5-15.4) g/dL Hct 23.6 L (35.3-44.9) % Plt Count 50 L (140-400) K/mcL Neutrophils # 7.5 (1.6-8.9) K/mcL BMP 03/07/18 04:32 Sodium 156 H Potassium 3.4 L Chloride 113 H Carbon Dioxide 37 H BUN 50 H Creatinine 0.96 Glucose 147 H Calcium 7.8 L - ABG Interpretation ABG results: PT/INR, D-dimer PT 13.6 Seconds (9.4-12.1) H 02/22/18 21:03 D-Dimer 793 ng/mLFEU (0-500) H 02/22/18 21:03 - VTE Documentation of Mechanical Device: Intermittent pneumatic compression device Consult Discharge Plan - Plan Referrals: Jimenez Zavala MD [Primary Care Provider] - (this patient is from an [facility] no PCP appointment needed) (3) Cirrhosis Qualifiers: Hepatic cirrhosis type: unspecified hepatic cirrhosis Ascites presence: with ascites Qualified Code(s): K74.60 - Unspecified cirrhosis of liver; R18.8 - Other ascites (5) Sepsis Qualifiers: Sepsis type: sepsis due to unspecified organism Qualified Code(s): A41.9 - Sepsis, unspecified organism (8) Acute renal failure (ARF) Qualifiers: Acute renal failure type: unspecified Qualified Code(s): N17.9 - Acute kidney failure, unspecified (10) Hypothyroidism Qualifiers: Hypothyroidism type: unspecified Qualified Code(s): E03.9 - Hypothyroidism, unspecified (11) Schizophrenia Qualifiers: Schizophrenia type: unspecified Qualified Code(s): F20.9 - Schizophrenia, unspecified
[2018-03-07] MEDS ORDERED: Piperacillin/Tazobactam 3.375 GM in D5% in Water (Mini-Bag+) 100 ML IVPB SCH (17:00)
[2018-03-07] MEDS: Acetaminophen 650 MG RECTAL SUPP RC PRN (17:27)
[2018-03-07] MEDS ORDERED: Vancomycin 750 MG in D5% in Water 250 ML IVPB SCH (20:00)
[2018-03-08] MEDS: Piperacillin/Tazobactam 3.375 GM in 0.9 % Sodium Chloride Mini Bag 100 ML IVPB SCH ×3 (01:19→17:28)
[2018-03-08 04:44] LABS: Hemoglobin 6.8 g/dL (11.5-15.4)
[2018-03-08 04:45] LABS: Eosinophils # 0.1 K/mcL (0.0-0.6); Eosinophils % 1.3 %; Hematocrit 21.9 % (35.3-44.9); Immature Granulocytes % 0.9 % (0-4); Immature Platelets 17.9 % (1.1-6.1); Mean Corpuscular HGB Conc 31.1 g/dL (31.6-35.5); Mean Corpuscular Hemoglobin 31.1 pg (28.0-33.3); Mean Platelet Volume 14.1 fL (9.4-12.4); Monocytes # 0.7 K/mcL (0.0-1.3); Monocytes % 7.6 %; Neutrophils # 6.7 K/mcL (1.6-8.9); Red Blood Count 2.19 M/mcL (3.82-4.97); Red Cell Distribution Width 17.4 % (11.5-14.5); Segmented Neutrophils % 78.2 %
[2018-03-08 04:47] LABS: Platelet Count 41 K/mcL (140-400)
[2018-03-08 05:08] LABS: BUN/Creatinine Ratio 50 (6-26); Blood Urea Nitrogen 41 mg/dL (6-20); Calcium 7.6 mg/dL (8.6-10.3); Carbon Dioxide 33 mEq/L (23-29); Chloride 111 mEq/L (98-107); Glucose 131 mg/dL (70-105); Osmolality,Calculated 316 (280-300); Potassium 4.1 mEq/L (3.5-5.1); Sodium 147 mEq/L (136-145); eGFR For Non-African Americans > 60 (> 60)
[2018-03-08] MEDS: *HR* Heparin 5,000 UNIT/ML VIAL SQ SCH ×2 (06:24→17:29)
[2018-03-08] MEDS ORDERED: Aminoglycoside Consult 1 EACH MC ONE (07:55)
[2018-03-08] MEDS ORDERED: 0.9 % Sodium Chloride 250 ML ONE (08:16)
[2018-03-08 09:28] LABS: Phosphorous 1.8 mg/dL (2.7-4.5)
[2018-03-08] MEDS: Levothyroxine Sodium 100 MCG VIAL IVP SCH (10:00)
[2018-03-08] MEDS: *HR* LORazepam 2 MG/ML VIAL IVP SCH (10:01)
[2018-03-08] MEDS: Magic Mouthwash 10 ML UD Cup PO SCH ×4 (10:01→20:49)
--- NOTE | 2018-03-08 11:09 | Infectious Disease Progress No ---
Date of Encounter: 03/08/18 Time of Encounter: 10:15 - Assessment and Plan (1) Severe sepsis Current Visit: Yes Status: Acute The patient had two SIRS criteria plus FAISAL and AMS on admission. Likely secondary to multi-lobar PNA. Improved. WBC normalized. Febrile overnight with Tmax 102.4 Her mental status seems better today. Blood cultures drawn 03/01/18 are negative x 3 sets. Repeat blood cultures x 2 sets drawn 03/05/18 are NGTD. Per nursing, the patient has no tube feed residuals, so repeat aspiration is low on my differential. Repeat CXR showed RLL ground glass opacities with small pleural effusion: edema vs. pneumonitis. Continue Vancomycin IV. Pharmacy to dose. Goal trough ~15. Continue Zosyn 3.375 grams IV Q8H. Duration of treatment depends on the clinical picture. Monitor renal function and for drug toxicity and dose-adjust antibiotics. Check ESR, CRP, and procalcitonin. --> ESR and CRP normal. Procalcitonin pending. Etiology of persistent fevers and altered mental status remains unclear, but infectious etiology low on my differential. Consider central fever vs. drug fever vs. other. She has had a prolonged course of IV antibiotics with little to now improvement. May consider stopping all antibiotics and observing. The patient's code status has been switched to [id number], but it is unclear how aggressive the family wants to be. May need to transfer to tertiary care facility for higher level of care. Overall, prognosis is poor. Consider palliative care consult. (2) HCAP (healthcare-associated pneumonia) Current Visit: Yes Status: Acute Causative organism not clear. Urine legionella and pneumococcal antigen negative. Get RIP.--> negative. Repeat CXR given the recurrence of fevers over the weekend. The patient could be aspirating, but, per nursing, she has not had an tube feed residuals and seems to be tolerating well. Continue Zosyn 3.375 grams IV Q8H. Continue vancomycin. Pharmacy to dose. Goal trough ~15. Duration of treatment depends on the clinical picture. Monitor renal function and for drug toxicity and dose-adjust antibiotics. (3) Encephalopathy Current Visit: No Status: Acute Etiology unclear: sepsis vs. NMS vs. other. MRI of the brain negative. Neurology and psych consulted. Unsure what the patient's baseline is, but it appears her mental status may have worsened over the weekend. It does seem better today. (4) Elevated LFTs Current Visit: Yes Status: Acute Etiology not clear: medication vs. sepsis vs. other. RUQ UTS showed findings consistent with cirrhosis. Repeat LFTs trending up. Recommend GI to evaluate. (5) Acute kidney injury superimposed on chronic kidney disease Current Visit: Yes Status: Acute Serum creatinine normal today. Continue to trend. Dose-adjust antibiotics. Avoid nephrotoxins as able. (6) Thrombocytopenia Current Visit: Yes Status: Acute Etiology unclear: cirrhosis vs. heparin vs. other. Continue to trend. No acute bleeding noted on exam. Consider stopping SQ heparin. Consider Hem/Onc to evaluate. (7) Severe protein-calorie malnutrition Current Visit: Yes Status: Acute PEG tube inserted 03/02 with tube feeds started. (8) Constipation Current Visit: Yes Status: Resolved Resolved. Bowel regimen per the primary team. Qualifiers: Constipation type: drug induced constipation Qualified Code(s): K59.03 - Drug induced constipation (9) Decubitus ulcer of ankle, stage 1 Current Visit: Yes Status: Acute Clinically does not appear infected. Dressing changes per the wound care team. Qualifiers: Laterality: left Qualified Code(s): L89.521 - Pressure ulcer of left ankle , stage 1 (10) Decubitus ulcer of coccygeal region, stage 1 Current Visit: Yes Status: Acute Clinically does not appear infected. Dressing changes per the wound care team. (11) Hypernatremia Current Visit: No Status: Acute Etiology unclear. Improved. Free H2O increased. Further workup and management per the primary team. (12) Neuroleptic malignant syndrome Current Visit: Yes Status: Ruled-out Psychiatry and neurology consulted and have signed off. (13) Neuroleptic-induced tardive dyskinesia Current Visit: No Status: Acute (14) Schizoaffective disorder, bipolar type Current Visit: No Status: Chronic (15) History of seizures Current Visit: No Status: Chronic (16) Pleural effusion Current Visit: Yes Status: Acute RUQ UTS showed findings consistent with large right pleural effusion. CXR showed small right pleural effusion. Improved likely secondary to diuresis. Likely secondary to third-spacing due to the patient's poor nutritional status. Further management per the primary team. (17) Liver lesion Current Visit: Yes Status: Acute RUQ UTS showed two echogenic lesions as described may represent hemangiomas or other neoplasm. A previous CT from 02/22/2018 suggests that one of these lesions is likely hemangioma. (18) Cirrhosis Current Visit: Yes Status: Acute RUQ UTS showed findings consistent with cirrhosis of the liver. MELD score 11. Qualifiers: Hepatic cirrhosis type: unspecified hepatic cirrhosis Ascites presence: with ascites Qualified Code(s): K74.60 - Unspecified cirrhosis of liver; R18.8 - Other ascites (19) Metabolic alkalosis Current Visit: Yes Status: Acute Etiology unclear: Low intra-vascular volume vs. cirrhosis vs. other. Improving. Continue to trend. Management per the primary team. (20) Hypokalemia Current Visit: No Status: Acute Replacement per the primary team. - Subjective Interval history: Patient seen and examined. No acute events noted overnight. Patient continues to spike fevers with Tmax 102.4 overnight. Patient appears more alert. She does track with her eyes today and follows some commands. PEG tube placed 03/02/18 and tube feeds started. No residuals per nursing. Loose stool x 3 so far this morning. Infect Dis PN-Objective Data - Labs CBC & Chem 7: 03/08/18 03:58 03/08/18 03:58 Labs: Laboratory Results - last 24 hr 03/07/18 03/07/18 03/07/18 04:32 05:52 11:00 WBC RBC Hgb Hct MCV MCH MCHC RDW Plt Count MPV Immature Gran % Seg Neutrophils % Lymphocytes % Monocytes % Eosinophils % Basophils % Neutrophils # Lymphocytes # Monocytes # Eosinophils # Basophils # Immature Plt Fraction Sodium Potassium Chloride Carbon Dioxide BUN Creatinine Est GFR ( Amer) Est GFR (Non-Af Amer) BUN/Creatinine Ratio Glucose POC Glucose 131 H 134 H Calculated Osmolality Calcium Phosphorus Vancomycin Trough Blood Type A NEGATIVE Antibody Screen NEGATIVE Crossmatch See Detail 03/07/18 03/07/18 03/07/18 17:17 19:21 23:58 WBC RBC Hgb Hct MCV MCH MCHC RDW Plt Count MPV Immature Gran % Seg Neutrophils % Lymphocytes % Monocytes % Eosinophils % Basophils % Neutrophils # Lymphocytes # Monocytes # Eosinophils # Basophils # Immature Plt Fraction Sodium Potassium Chloride Carbon Dioxide BUN Creatinine Est GFR ( Amer) Est GFR (Non-Af Amer) BUN/Creatinine Ratio Glucose POC Glucose 142 H 110 H Calculated Osmolality Calcium Phosphorus Vancomycin Trough 15 H Blood Type Antibody Screen Crossmatch 03/08/18 03/08/18 03/08/18 03:58 03:58 06:05 WBC 8.5 RBC 2.19 L Hgb 6.8 L Hct 21.9 L MCV 100.0 MCH 31.1 MCHC 31.1 L RDW 17.4 H Plt Count 41 L MPV 14.1 H Immature Gran % 0.9 Seg Neutrophils % 78.2 Lymphocytes % 12.0 Monocytes % 7.6 Eosinophils % 1.3 Basophils % 0.0 Neutrophils # 6.7 Lymphocytes # 1.0 Monocytes # 0.7 Eosinophils # 0.1 Basophils # 0.0 Immature Plt Fraction 17.9 H Sodium 147 H D Potassium 4.1 Chloride 111 H Carbon Dioxide 33 H BUN 41 H Creatinine 0.82 Est GFR ( Amer) > 60 Est GFR (Non-Af Amer) > 60 BUN/Creatinine Ratio 50 H Glucose 131 H POC Glucose 146 H Calculated Osmolality 316 H Calcium 7.6 L Phosphorus 1.8 L Vancomycin Trough Blood Type Antibody Screen Crossmatch Cultures: Cultures 03/01/18 12:12 Blood Culture - Final Peripheral Venipuncture No growth. Final report. 03/01/18 12:14 Blood Culture - Final Peripheral Venipuncture No growth. Final report. 03/05/18 09:35 Blood Culture - Preliminary Peripheral Venipuncture Culture is incubating and being continuously monitored for growth. Final report to follow. 03/05/18 09:33 Blood Culture - Preliminary Peripheral Venipuncture Culture is incubating and being continuously monitored for growth. Final report to follow. 03/02/18 00:00 Legionella Antigen - Final Urine,Catheterized Streptococcus pneumoniae Antigen (M - Final Serology 03/05/18 03/02/18 02/25/18 Range/Units 14:04 00:00 09:45 Urine Myoglobin <1 (0-1) mg/L Urine Test Negative (Negative) Chlamy pneumoniae PCR Not Detected (Not Detect) Adenovirus (PCR) Not Detected (Not Detect) B. pertussis DNA (PCR) Not Detected (Not Detect) B.parapertussis DNA PCR Not Detected (Not Detect) Coronavirus OC43 (PCR) Not Detected (Not Detect) Coronavirus HKU1 (PCR) Not Detected (Not Detect) Coronavirus 229E (PCR) Not Detected (Not Detect) Coronavirus NL63 (PCR) Not Detected (Not Detect) Human Metapneumovir PCR Not Detected (Not Detect) Influenza A (H1) PCR Not Detected (Not Detect) Influ A (H1N1/09) PCR Not Detected (Not Detect) Influenza A (H3) PCR Not Detected (Not Detect) Influenza A Untype (PCR) Not Detected (Not Detect) Influenza Type B (PCR) Not Detected (Not Detect) M.pneumoniae DNA (PCR) Not Detected (Not Detect) Parainfluenza 1 (PCR) Not Detected (Not Detect) Parainfluenza 2 (PCR) Not Detected (Not Detect) Parainfluenza 3 (PCR) Not Detected (Not Detect) Parainfluenza 4 (PCR) Not Detected (Not Detect) RSV (PCR) Not Detected (Not Detect) Entero/Rhino (PCR) Not Detected (Not Detect) Exam - Constitutional Vitals: Temp Pulse Resp BP Pulse Ox 98.3 F 60 18 122/75 97 03/08/18 10:46 03/08/18 10:46 03/08/18 10:46 03/08/18 10:46 03/08/18 10:46 General appearance: cooperative, no acute distress, thin - Head Head exam: Present: atraumatic, normal inspection, normocephalic - Eye Eye exam: Present: normal appearance, PERRL (Pupils dilated at 5mm, but equal bilaterally.) - ENT ENT exam: Present: mucous membranes moist - Neck Neck exam: Present: normal inspection - Respiratory Respiratory exam: Present: CTAB. Absent: rales, respiratory distress, rhonchi, wheezes - Cardiovascular Cardiovascular exam: Present: RRR, +S1, +S2 - GI/Abdominal GI/Abdominal exam: Present: normal bowel sounds, soft. Absent: distended, tenderness Additional comments: PEG tube noted to the LUQ with tube feeds infusing at goal rate. Bonilla catheter noted o be draining clear yellow urine. - Extremities Exam Extremities exam: Present: normal inspection. Absent: joint swelling, pedal edema, tenderness - Neurological Exam Neurological exam: Present: alert. Absent: no focal deficits (Movement of all extremities severely diminished, but the patient does wiggle her fingers and toes on command.) Additional comments: Eyes open, tracks around room. Responds to voice commands. Non-verbal. - Skin Skin exam: Present: dry, intact, pallor, warm - VTE Documentation of Mechanical Device: Intermittent pneumatic compression device Consult Discharge Plan - Plan Referrals: Jimenez Zavala MD [Primary Care Provider] - (this patient is from an ECF no PCP appointment needed)
--- NOTE | 2018-03-08 12:23 | Internal Med Progress Note ---
Hospitalist Progress Note - Encounter Date of Encounter: 03/08/18 Time of Encounter: 08:30 - Subjective Interval History: Mental status continues to improve, more verbal output today although I still could not understand. Tmax 102.4 overnight. Patient's family also states that she was able to recognize them yesterday. - Exam Vitals: Temp Pulse Resp BP Pulse Ox 96.1 F L 65 14 123/72 98 03/08/18 11:45 03/08/18 11:45 03/08/18 11:45 03/08/18 11:45 03/08/18 11:45 Exam: General: Not in acute distress, alert and has some verbal output. Tracks with her eyes Cardiovascular: Normal S1 and S2, regular rate and rhythm Abdomen: Soft, Non-distended Extremities: No lower extremity edema Skin: Normal color, no rash. Stage I decubitus ulcer on L ankle and coccyx which were present at the time of admission - Assessment and Plan (1) HCAP (healthcare-associated pneumonia) Current Visit: Yes Status: Acute Assessment and Plan: Patient continues to have fever, has been prolonged course of abx with IV Zosyn/ vancomycin unclear whether fever is due to infectious process, ?drug fever ?central cause Repeat blood cultures pending, CXR did not reveal any significant finding other than mild GGO in R lower zone which may represent edema or pneumonitis code status has been extensively discussed with the family, DNRCCA would favor discontinuing the abx over the weekend, follow with ID prognosis extremely poor, she may eventually be transitioned to hospice (2) Encephalopathy Current Visit: No Status: Acute Assessment and Plan: Patient continues not to communicate much as she has been doing for most of her hospital stay Neurology following and believes patient is close to baseline but has worsened over the weekend along with hypernatremia, likely have metabolic component to it adjusting free water flush, expect Na to decrease further today so will decrease the flush to 300mg Q4 monitor BMP (3) Cirrhosis Current Visit: Yes Status: Acute Assessment and Plan: new diagnosis, unclear etiology but given her poor prognosis to start with, declined further workup ensure daily BM to prevent hepatic encephalopathy (4) Hypernatremia Current Visit: Yes Status: Acute Assessment and Plan: increase free water flush as above (5) Sepsis Current Visit: Yes Status: Suspected Assessment and Plan: Resolved; continue to monitor (6) Neuroleptic malignant syndrome Current Visit: Yes Status: Ruled-out Assessment and Plan: Initially suspected given fever, mydriasis, and the suspicious agents that patient had been on not actively treating with dantrolene as she had been improving without it, continuing ativan as she had been chronically on BZD continue to hold off anti-psychotics Will continue to monitor (7) Tardive dyskinesia Current Visit: Yes Status: Chronic Assessment and Plan: Patient has chronic significant history of tardive dyskinesia with extensive head, perioral and upper extremity tremors. Patient does have a history of Parkinson's disease per neurology and stiffness could be baseline. (8) Acute renal failure (ARF) Current Visit: Yes Status: Acute Assessment and Plan: Resolved; continue to monitor (9) Hypothyroidism Current Visit: Yes Status: Chronic Assessment and Plan: TSH 1.3 on 01/23/18 Continue levothyroxine, switching back from IV to Gtube (10) Schizophrenia Current Visit: Yes Status: Chronic Assessment and Plan: Psychiatry was consulted with recommendations to discontinue patient's medications for schizophrenia (Haldol, clonazepam and trazodone) Recommendations to restart medications in 2 weeks Patient currently on IV Ativan as needed (11) DVT prophylaxis Current Visit: Yes Status: Acute Assessment and Plan: On subcutaneous heparin. - Time Spent with Patient Total time spent is greater than 50% in coordination of care (as documented) at patient's floor/unit and/or counseling patient: Plan of Care Discussed with: nurse Internal Medicine: Result - Labs CBC & Chem 7: 03/08/18 03:58 03/08/18 03:58 Labs: Short CBC 03/08/18 Range/Units 03:58 WBC 8.5 (4.3-11.1) K/mcL Hgb 6.8 L (11.5-15.4) g/dL Hct 21.9 L (35.3-44.9) % Plt Count 41 L (140-400) K/mcL Neutrophils # 6.7 (1.6-8.9) K/mcL BMP 03/08/18 03:58 Sodium 147 H D Potassium 4.1 Chloride 111 H Carbon Dioxide 33 H BUN 41 H Creatinine 0.82 Glucose 131 H Calcium 7.6 L - ABG Interpretation ABG results: PT/INR, D-dimer PT 13.6 Seconds (9.4-12.1) H 02/22/18 21:03 D-Dimer 793 ng/mLFEU (0-500) H 02/22/18 21:03 - VTE Documentation of Mechanical Device: Intermittent pneumatic compression device Consult Discharge Plan - Plan Referrals: Jimenez Zavala MD [Primary Care Provider] - (this patient is from an ECF no PCP appointment needed) (3) Cirrhosis Qualifiers: Hepatic cirrhosis type: unspecified hepatic cirrhosis Ascites presence: with ascites Qualified Code(s): K74.60 - Unspecified cirrhosis of liver; R18.8 - Other ascites (5) Sepsis Qualifiers: Sepsis type: sepsis due to unspecified organism Qualified Code(s): A41.9 - Sepsis, unspecified organism (8) Acute renal failure (ARF) Qualifiers: Acute renal failure type: unspecified Qualified Code(s): N17.9 - Acute kidney failure, unspecified (9) Hypothyroidism Qualifiers: Hypothyroidism type: unspecified Qualified Code(s): E03.9 - Hypothyroidism, unspecified (10) Schizophrenia Qualifiers: Schizophrenia type: unspecified Qualified Code(s): F20.9 - Schizophrenia, unspecified
[2018-03-08] MEDS ORDERED: *HR* LORazepam 0.5 MG TABLET GTUBE PRN (12:26)
[2018-03-08] MEDS ORDERED: clonazePAM 1 MG TABLET GTUBE PRN (12:26)
[2018-03-08] MEDS ORDERED: Melatonin 3 MG TABLET GTUBE PRN (12:26)
[2018-03-09] MEDS: Piperacillin/Tazobactam 3.375 GM in 0.9 % Sodium Chloride Mini Bag 100 ML IVPB SCH ×2 (00:40→08:03)
[2018-03-09 04:47] LABS: Hematocrit 30.3 % (35.3-44.9)
[2018-03-09 04:59] LABS: BUN/Creatinine Ratio 49 (6-26); Blood Urea Nitrogen 38 mg/dL (6-20); Calcium 8.1 mg/dL (8.6-10.3); Carbon Dioxide 27 mEq/L (23-29); Chloride 109 mEq/L (98-107); Glucose 119 mg/dL (70-105); Osmolality,Calculated 302 (280-300); Potassium 4.2 mEq/L (3.5-5.1); Sodium 141 mEq/L (136-145); eGFR For Non-African Americans > 60 (> 60)
[2018-03-09] MEDS: *HR* Heparin 5,000 UNIT/ML VIAL SQ SCH ×2 (05:27→17:41)
[2018-03-09] MEDS: Acetaminophen 650 MG RECTAL SUPP RC PRN (05:31)
[2018-03-09] MEDS: Folic Acid 1 MG TABLET GTUBE SCH (08:02)
[2018-03-09] MEDS: Magic Mouthwash 10 ML UD Cup PO SCH ×4 (08:03→19:56)
[2018-03-09 08:35] LABS: Phosphorous 2.6 mg/dL (2.7-4.5)
[2018-03-09] MEDS ORDERED: Cyanocobalamin (B-12) 1,000 MCG TABLET GTUBE SCH (09:00)
--- NOTE | 2018-03-09 11:17 | Internal Med Progress Note ---
Hospitalist Progress Note - Encounter Date of Encounter: 03/09/18 Time of Encounter: 09:00 - Subjective Interval History: Mental status about the same, incomprehensible verbal output. Tmax 102.5 overnight. - Exam Vitals: Temp Pulse Resp BP Pulse Ox 100.9 F H 91 20 156/88 97 03/09/18 07:13 03/09/18 07:13 03/09/18 07:13 03/09/18 07:13 03/09/18 07:13 Exam: General: Not in acute distress, alert and has some verbal output. Tracks with her eyes Cardiovascular: Normal S1 and S2, regular rate and rhythm Abdomen: Soft, Non-distended Extremities: No lower extremity edema Skin: Normal color, no rash. Stage I decubitus ulcer on L ankle and coccyx which were present at the time of admission - Assessment and Plan (1) HCAP (healthcare-associated pneumonia) Current Visit: Yes Status: Acute Assessment and Plan: Patient continues to have fever, has been prolonged course of abx with IV Zosyn/ vancomycin Repeat blood cultures pending, CXR did not reveal any significant finding other than mild GGO in R lower zone which may represent edema or pneumonitis unclear whether fever is due to infectious process, ?drug fever ?central cause - > will d/c today and monitor prognosis extremely poor, she may eventually be transitioned to hospice (2) Persistent fever Current Visit: Yes Status: Acute Assessment and Plan: initially attributed to the above but she has remained on prolonged abx without much improvement d/c abx today ?thrombosis as a cause, she also has new dx of cirrhosis LE doppler and US liver with doppler study to rule out DVT and portal vein thrombosis If negative, it may be related to central cause or drug (3) Cirrhosis Current Visit: Yes Status: Acute Assessment and Plan: new diagnosis, unclear etiology but given her poor prognosis to start with, declined further workup given her persistent fever, will rule out portal vein thrombosis as a cause of fever + cirrhosis ensure daily BM to prevent hepatic encephalopathy (4) Encephalopathy Current Visit: No Status: Acute Assessment and Plan: Patient continues not to communicate much as she has been doing for most of her hospital stay improving since the weekend along with correction of hypernatremia Neurology following and believes patient is close to baseline adjusting free water flush, Na continues to decrease and will lower the rate of water flush if it dips too much monitor BMP (5) Hypernatremia Current Visit: Yes Status: Acute Assessment and Plan: improving, will adjust water flush further if sodium continues to drop (6) Sepsis Current Visit: Yes Status: Suspected Assessment and Plan: Resolved; continue to monitor (7) Neuroleptic malignant syndrome Current Visit: Yes Status: Ruled-out Assessment and Plan: Initially suspected given fever, mydriasis, and the suspicious agents that patient had been on not actively treating with dantrolene as she had been improving without it, continuing ativan as she had been chronically on BZD continue to hold off anti-psychotics Will continue to monitor (8) Tardive dyskinesia Current Visit: Yes Status: Chronic Assessment and Plan: Patient has chronic significant history of tardive dyskinesia with extensive head, perioral and upper extremity tremors. Patient does have a history of Parkinson's disease per neurology and stiffness could be baseline. (9) Acute renal failure (ARF) Current Visit: Yes Status: Acute Assessment and Plan: Resolved; continue to monitor (10) Hypothyroidism Current Visit: Yes Status: Chronic Assessment and Plan: TSH 1.3 on 01/23/18 Continue levothyroxine, switching back from IV to Gtube (11) Schizophrenia Current Visit: Yes Status: Chronic Assessment and Plan: Psychiatry was consulted with recommendations to discontinue patient's medications for schizophrenia (Haldol, clonazepam and trazodone) Recommendations to restart medications in 2 weeks Patient currently on IV Ativan as needed (12) DVT prophylaxis Current Visit: Yes Status: Acute Assessment and Plan: On subcutaneous heparin. (13) Decubitus ulcer of ankle, stage 1 Current Visit: Yes Status: Acute Assessment and Plan: present prior to the admission nursing care per protocol (14) Decubitus ulcer of coccygeal region, stage 1 Current Visit: Yes Status: Acute Assessment and Plan: present prior to the admission nursing care per protocol - Time Spent with Patient Total time spent is greater than 50% in coordination of care (as documented) at patient's floor/unit and/or counseling patient: Plan of Care Discussed with: nurse Internal Medicine: Result - Labs CBC & Chem 7: 03/09/18 03:20 03/09/18 03:20 Labs: Short CBC 03/09/18 Range/Units 03:20 Hgb 10.0 L D (11.5-15.4) g/dL Hct 30.3 L (35.3-44.9) % BMP 03/09/18 03:20 Sodium 141 Potassium 4.2 Chloride 109 H Carbon Dioxide 27 BUN 38 H Creatinine 0.77 Glucose 119 H Calcium 8.1 L - ABG Interpretation ABG results: PT/INR, D-dimer PT 13.6 Seconds (9.4-12.1) H 02/22/18 21:03 D-Dimer 793 ng/mLFEU (0-500) H 02/22/18 21:03 - VTE Documentation of Mechanical Device: Intermittent pneumatic compression device Consult Discharge Plan - Plan Referrals: Jimenez Zavala MD [Primary Care Provider] - (this patient is from an [facility] no PCP appointment needed) (3) Cirrhosis Qualifiers: Hepatic cirrhosis type: unspecified hepatic cirrhosis Ascites presence: with ascites Qualified Code(s): K74.60 - Unspecified cirrhosis of liver; R18.8 - Other ascites (6) Sepsis Qualifiers: Sepsis type: sepsis due to unspecified organism Qualified Code(s): A41.9 - Sepsis, unspecified organism (9) Acute renal failure (ARF) Qualifiers: Acute renal failure type: unspecified Qualified Code(s): N17.9 - Acute kidney failure, unspecified (10) Hypothyroidism Qualifiers: Hypothyroidism type: unspecified Qualified Code(s): E03.9 - Hypothyroidism, unspecified (11) Schizophrenia Qualifiers: Schizophrenia type: unspecified Qualified Code(s): F20.9 - Schizophrenia, unspecified (13) Decubitus ulcer of ankle, stage 1 Qualifiers: Laterality: left Qualified Code(s): L89.521 - Pressure ulcer of left ankle, stage 1
--- NOTE | 2018-03-09 13:59 | Infectious Disease Progress No ---
Date of Encounter: 03/09/18 Time of Encounter: 13:57 - Assessment and Plan (1) Severe sepsis Current Visit: Yes Status: Acute The patient had two SIRS criteria plus FAISAL and AMS on admission. Likely secondary to multi-lobar PNA, initially, but etiology of persistent fevers is unclear. Improved. WBC normalized. Febrile overnight with Tmax 102.5. Her mental status seems better today. Blood cultures drawn 03/01/18 are negative x 3 sets. Repeat blood cultures x 2 sets drawn 03/05/18 are NGTD. Per nursing, the patient has no tube feed residuals, so repeat aspiration is low on my differential. Repeat CXR showed RLL ground glass opacities with small pleural effusion: edema vs. pneumonitis. Antibiotics stopped per the primary team. Check ESR, CRP, and procalcitonin. --> ESR and CRP normal. Procalcitonin mildly elevated at 0.23. Etiology of persistent fevers and altered mental status remains unclear, but infectious etiology low on my differential. Consider central fever vs. drug fever vs. other. She has had a prolonged course of IV antibiotics with little to no improvement. Antibiotics have been stopped by the primary team. The patient's code status has been switched to [id number], but it is unclear how aggressive the family wants to be. May need to transfer to tertiary care facility for higher level of care. Overall, prognosis is poor. Consider palliative care consult. No further recommendations from the ID team. Will sign off. Please re-consult if needed. (2) HCAP (healthcare-associated pneumonia) Current Visit: Yes Status: Acute Causative organism not clear. Urine legionella and pneumococcal antigen negative. Get RIP.--> negative. Repeat CXR given the recurrence of fevers over the weekend. The patient could be aspirating, but, per nursing, she has not had an tube feed residuals and seems to be tolerating well. Received 9 days of Vanc and 15 days of Zosyn, which is more than adequate for PNA. Repeat CXR non-revealing. Antibiotics stopped by the primary team. (3) Encephalopathy Current Visit: No Status: Acute Etiology unclear: sepsis vs. NMS vs. other. MRI of the brain negative. Neurology and psych consulted. Unsure what the patient's baseline is. (4) Elevated LFTs Current Visit: Yes Status: Acute Etiology not clear: medication vs. sepsis vs. other. RUQ UTS showed findings consistent with cirrhosis. Repeat LFTs trending up. Liver UTS negative. Recommend GI to evaluate. (5) Acute kidney injury superimposed on chronic kidney disease Current Visit: Yes Status: Acute Serum creatinine normal today. Continue to trend. Dose-adjust antibiotics. Avoid nephrotoxins as able. (6) Thrombocytopenia Current Visit: Yes Status: Acute Etiology unclear: cirrhosis vs. heparin vs. other. Continue to trend. No acute bleeding noted on exam. Consider stopping SQ heparin. Consider Hem/Onc to evaluate. (7) Severe protein-calorie malnutrition Current Visit: Yes Status: Acute PEG tube inserted 03/02 with tube feeds started. (8) Constipation Current Visit: Yes Status: Resolved Resolved. Bowel regimen per the primary team. Qualifiers: Constipation type: drug induced constipation Qualified Code(s): K59.03 - Drug induced constipation (9) Decubitus ulcer of ankle, stage 1 Current Visit: Yes Status: Acute Clinically does not appear infected. Dressing changes per the wound care team. Qualifiers: Laterality: left Qualified Code(s): L89.521 - Pressure ulcer of left ankle , stage 1 (10) Decubitus ulcer of coccygeal region, stage 1 Current Visit: Yes Status: Acute Clinically does not appear infected. Dressing changes per the wound care team. (11) Hypernatremia Current Visit: No Status: Resolved Etiology unclear. Improved. Free H2O increased. Further workup and management per the primary team. (12) Neuroleptic malignant syndrome Current Visit: Yes Status: Ruled-out Psychiatry and neurology consulted and have signed off. (13) Neuroleptic-induced tardive dyskinesia Current Visit: No Status: Acute (14) Schizoaffective disorder, bipolar type Current Visit: No Status: Chronic (15) History of seizures Current Visit: No Status: Chronic (16) Pleural effusion Current Visit: Yes Status: Resolved RUQ UTS showed findings consistent with large right pleural effusion. CXR showed small right pleural effusion. Improved likely secondary to diuresis. Likely secondary to third-spacing due to the patient's poor nutritional status. Further management per the primary team. (17) Liver lesion Current Visit: Yes Status: Acute RUQ UTS showed two echogenic lesions as described may represent hemangiomas or other neoplasm. A previous CT from 02/22/2018 suggests that one of these lesions is likely hemangioma. Liver UTS 03/09/18 negative for focal hepatic abnormality. (18) Cirrhosis Current Visit: Yes Status: Acute RUQ UTS showed findings consistent with cirrhosis of the liver. MELD score 11. Qualifiers: Hepatic cirrhosis type: unspecified hepatic cirrhosis Ascites presence: with ascites Qualified Code(s): K74.60 - Unspecified cirrhosis of liver; R18.8 - Other ascites (19) Metabolic alkalosis Current Visit: Yes Status: Resolved Etiology unclear: Low intra-vascular volume vs. cirrhosis vs. other. Improving. Continue to trend. Management per the primary team. (20) Hypokalemia Current Visit: No Status: Acute Replacement per the primary team. - Subjective Interval history: Patient seen and examined. No acute events noted overnight. Patient continues to spike fevers with Tmax 102.5 overnight. Patient appears more alert. She does track with her eyes today and follows some commands. PEG tube placed 03/02/18 and tube feeds started. No residuals per nursing. Loose stool x 3 yesterday. Antibiotics stopped per the primary team. Infect Dis PN-Objective Data - Labs CBC & Chem 7: 03/09/18 03:20 03/09/18 03:20 Labs: Laboratory Results - last 24 hr 03/06/18 03/08/18 03/08/18 14:15 11:48 13:45 Hgb Hct Sodium Potassium Chloride Carbon Dioxide BUN Creatinine Est GFR ( Amer) Est GFR (Non-Af Amer) BUN/Creatinine Ratio Glucose POC Glucose 101 H Calculated Osmolality Calcium Phosphorus Procalcitonin 0.23 H Stool Occult Blood Negative 03/08/18 03/08/18 03/09/18 18:10 23:59 03:20 Hgb 10.0 L D Hct 30.3 L Sodium Potassium Chloride Carbon Dioxide BUN Creatinine Est GFR ( Amer) Est GFR (Non-Af Amer) BUN/Creatinine Ratio Glucose POC Glucose 109 H 96 Calculated Osmolality Calcium Phosphorus Procalcitonin Stool Occult Blood 03/09/18 03:20 Hgb Hct Sodium 141 Potassium 4.2 Chloride 109 H Carbon Dioxide 27 BUN 38 H Creatinine 0.77 Est GFR ( Amer) > 60 Est GFR (Non-Af Amer) > 60 BUN/Creatinine Ratio 49 H Glucose 119 H POC Glucose Calculated Osmolality 302 H Calcium 8.1 L Phosphorus 2.6 L Procalcitonin Stool Occult Blood Cultures: Cultures 03/01/18 12:12 Blood Culture - Final Peripheral Venipuncture No growth. Final report. 03/01/18 12:14 Blood Culture - Final Peripheral Venipuncture No growth. Final report. 03/05/18 09:35 Blood Culture - Preliminary Peripheral Venipuncture Culture is incubating and being continuously monitored for growth. Final report to follow. 03/05/18 09:33 Blood Culture - Preliminary Peripheral Venipuncture Culture is incubating and being continuously monitored for growth. Final report to follow. 03/02/18 00:00 Legionella Antigen - Final Urine,Catheterized Streptococcus pneumoniae Antigen (M - Final Serology 03/08/18 03/05/18 03/02/18 Range/Units 13:45 14:04 00:00 Urine Myoglobin (0-1) mg/L Urine Test Negative (Negative) Stool Occult Blood Negative (Negative) Chlamy pneumoniae PCR Not Detected (Not Detect) Adenovirus (PCR) Not Detected (Not Detect) B. pertussis DNA (PCR) Not Detected (Not Detect) B.parapertussis DNA PCR Not Detected (Not Detect) Coronavirus OC43 (PCR) Not Detected (Not Detect) Coronavirus HKU1 (PCR) Not Detected (Not Detect) Coronavirus 229E (PCR) Not Detected (Not Detect) Coronavirus NL63 (PCR) Not Detected (Not Detect) Human Metapneumovir PCR Not Detected (Not Detect) Influenza A (H1) PCR Not Detected (Not Detect) Influ A (H1N1/09) PCR Not Detected (Not Detect) Influenza A (H3) PCR Not Detected (Not Detect) Influenza A Untype (PCR) Not Detected (Not Detect) Influenza Type B (PCR) Not Detected (Not Detect) M.pneumoniae DNA (PCR) Not Detected (Not Detect) Parainfluenza 1 (PCR) Not Detected (Not Detect) Parainfluenza 2 (PCR) Not Detected (Not Detect) Parainfluenza 3 (PCR) Not Detected (Not Detect) Parainfluenza 4 (PCR) Not Detected (Not Detect) RSV (PCR) Not Detected (Not Detect) Entero/Rhino (PCR) Not Detected (Not Detect) 02/25/18 Range/Units 09:45 Urine Myoglobin <1 (0-1) mg/L Urine Test (Negative) Stool Occult Blood (Negative) Chlamy pneumoniae PCR (Not Detect) Adenovirus (PCR) (Not Detect) B. pertussis DNA (PCR) (Not Detect) B.parapertussis DNA PCR (Not Detect) Coronavirus OC43 (PCR) (Not Detect) Coronavirus HKU1 (PCR) (Not Detect) Coronavirus 229E (PCR) (Not Detect) Coronavirus NL63 (PCR) (Not Detect) Human Metapneumovir PCR (Not Detect) Influenza A (H1) PCR (Not Detect) Influ A (H1N1/09) PCR (Not Detect) Influenza A (H3) PCR (Not Detect) Influenza A Untype (PCR) (Not Detect) Influenza Type B (PCR) (Not Detect) M.pneumoniae DNA (PCR) (Not Detect) Parainfluenza 1 (PCR) (Not Detect) Parainfluenza 2 (PCR) (Not Detect) Parainfluenza 3 (PCR) (Not Detect) Parainfluenza 4 (PCR) (Not Detect) RSV (PCR) (Not Detect) Entero/Rhino (PCR) (Not Detect) - Impressions Impressions Abdomen/Pelvis Ultrasound 03/09/18 07:23 IMPRESSION: No focal hepatic abnormality. Hepatic vasculature demonstrates normal flow in the normal direction. D/ / 03/09/2018 13:54:33 Rafi Virk MD / Vianey Corado Interpreting Provider: Rafi Virk MD Exam - Constitutional Vitals: Temp Pulse Resp BP Pulse Ox 99.7 F H 81 16 133/87 97 03/09/18 11:22 03/09/18 11:22 03/09/18 11:22 03/09/18 11:22 03/09/18 11:22 General appearance: no acute distress, thin, no febrile - Head Head exam: Present: atraumatic, normal inspection, normocephalic - Eye Eye exam: Present: EOMI, normal appearance, PERRL (pupils 5mm bilaterally, but equal and reactive.) Pupils: Present: normal accommodation - ENT ENT exam: Present: mucous membranes dry - Neck Neck exam: Present: normal inspection - Respiratory Respiratory exam: Present: CTAB. Absent: rales, respiratory distress, rhonchi, wheezes - Cardiovascular Cardiovascular exam: Present: RRR, +S1, +S2. Absent: irregular rhythm - GI/Abdominal GI/Abdominal exam: Present: normal bowel sounds, soft. Absent: distended, tenderness Additional comments: PEG tube noted to the LUQ with tube feeds infusing. Bonilla catheter noted to be draining clear yellow urine. - Extremities Exam Extremities exam: Present: normal inspection. Absent: joint swelling, pedal edema, tenderness - Neurological Exam Neurological exam: Present: alert. Absent: no focal deficits (ZUNIGA x 4 on command. Tracks me around the room. Follows some commands. Non-verbal.) - Skin Skin exam: Present: dry, intact, normal color, warm - VTE Documentation of Mechanical Device: Intermittent pneumatic compression device Consult Discharge Plan - Plan Referrals: Jimenez Zavlaa MD [Primary Care Provider] - (this patient is from an ECF no PCP appointment needed)
[2018-03-09] MEDS: Cyanocobalamin (B-12) 1,000 MCG TABLET GTUBE SCH (14:09)
[2018-03-09] MEDS: *HR* LORazepam 2 MG/ML VIAL IVP PRN (23:03)
[2018-03-10 04:54] LABS: BUN/Creatinine Ratio 49 (6-26); Blood Urea Nitrogen 35 mg/dL (6-20); Calcium 8.2 mg/dL (8.6-10.3); Carbon Dioxide 24 mEq/L (23-29); Chloride 108 mEq/L (98-107); Glucose 125 mg/dL (70-105); Osmolality,Calculated 295 (280-300); Potassium 4.5 mEq/L (3.5-5.1); Sodium 138 mEq/L (136-145); eGFR For Non-African Americans > 60 (> 60)
[2018-03-10] MEDS: *HR* Heparin 5,000 UNIT/ML VIAL SQ SCH ×2 (05:25→17:02)
[2018-03-10] MEDS: Folic Acid 1 MG TABLET GTUBE SCH (08:49)
[2018-03-10] MEDS: Cyanocobalamin (B-12) 1,000 MCG TABLET GTUBE SCH (08:49)
[2018-03-10] MEDS: Magic Mouthwash 10 ML UD Cup PO SCH ×4 (08:49→20:58)
--- NOTE | 2018-03-10 10:20 | Internal Med Progress Note ---
Hospitalist Progress Note - Encounter Date of Encounter: 03/10/18 Time of Encounter: 09:00 - Subjective Interval History: Mental status about the same, involuntary movement of perioral region noted. Tmax 101.6 overnight. - Exam Vitals: Temp Pulse Resp BP Pulse Ox 99.4 F 91 16 140/80 98 03/10/18 06:44 03/10/18 06:44 03/10/18 06:44 03/10/18 06:44 03/10/18 06:44 Exam: General: Not in acute distress, alert and has some verbal output. Tracks with her eyes Cardiovascular: Normal S1 and S2, regular rate and rhythm Abdomen: Soft, Non-distended Extremities: No lower extremity edema Skin: Normal color, no rash. Stage I decubitus ulcer on L ankle and coccyx which were present at the time of admission Neuro: tardive dyskinesia noted - Assessment and Plan (1) HCAP (healthcare-associated pneumonia) Current Visit: Yes Status: Acute Assessment and Plan: Patient continues to have fever, has been prolonged course of abx with IV Zosyn/ vancomycin Repeat blood cultures pending, CXR did not reveal any significant finding other than mild GGO in R lower zone which may represent edema or pneumonitis fever less likely due to infectious process, ?drug fever ?central cause -> d/c yesterday prognosis extremely poor, she may eventually be transitioned to hospice (2) Persistent fever Current Visit: Yes Status: Acute Assessment and Plan: initially attributed to the above but she has remained on prolonged abx without much improvement abx d/bridgett yesterday, Tmax 101.6 overnight -ve for LE DVT, no portal vein thrombosis likely related to central cause or drug (3) Cirrhosis Current Visit: Yes Status: Acute Assessment and Plan: new diagnosis, unclear etiology but given her poor prognosis to start with, family opted for no further workup US doppler -ve for portal vein thrombosis Last BM on 03/08, give dulcolax today to ensure BM to prevent hepatic encephalopathy (4) Encephalopathy Current Visit: No Status: Acute Assessment and Plan: Patient continues not to communicate much as she has been doing for most of her hospital stay improving since the weekend along with correction of hypernatremia, normal x 2 days Neurology following and believes patient is close to baseline will continue the current amount of free water flush monitor BMP on Monday (5) Hypernatremia Current Visit: Yes Status: Acute Assessment and Plan: as above (6) Sepsis Current Visit: Yes Status: Suspected Assessment and Plan: Resolved; continue to monitor (7) Neuroleptic malignant syndrome Current Visit: Yes Status: Ruled-out Assessment and Plan: Initially suspected given fever, mydriasis, and the suspicious agents that patient had been on not actively treating with dantrolene as she had been improving without it, continuing ativan as she had been chronically on BZD continue to hold off anti-psychotics, will contact psych on Monday for further rec now that she is out of 14 days Will continue to monitor (8) Tardive dyskinesia Current Visit: Yes Status: Chronic Assessment and Plan: Patient has chronic significant history of tardive dyskinesia with extensive head, perioral and upper extremity tremors. Patient does have a history of Parkinson's disease per neurology and stiffness could be baseline. (9) Acute renal failure (ARF) Current Visit: Yes Status: Acute Assessment and Plan: Resolved; continue to monitor (10) Hypothyroidism Current Visit: Yes Status: Chronic Assessment and Plan: TSH 1.3 on 01/23/18 Continue levothyroxine, switching back from IV to Gtube (11) Schizophrenia Current Visit: Yes Status: Chronic Assessment and Plan: Psychiatry was consulted with recommendations to discontinue patient's medications for schizophrenia (Haldol, clonazepam and trazodone) Recommendations to restart medications in 2 weeks, will contact psych on Mon Patient currently on IV Ativan as needed (12) DVT prophylaxis Current Visit: Yes Status: Acute Assessment and Plan: On subcutaneous heparin. (13) Decubitus ulcer of ankle, stage 1 Current Visit: Yes Status: Acute Assessment and Plan: present prior to the admission nursing care per protocol (14) Decubitus ulcer of coccygeal region, stage 1 Current Visit: Yes Status: Acute Assessment and Plan: present prior to the admission nursing care per protocol - Time Spent with Patient Total time spent is greater than 50% in coordination of care (as documented) at patient's floor/unit and/or counseling patient: Plan of Care Discussed with: nurse Internal Medicine: Result - Labs CBC & Chem 7: 03/09/18 03:20 03/10/18 04:03 Labs: BMP 03/10/18 04:03 Sodium 138 Potassium 4.5 Chloride 108 H Carbon Dioxide 24 BUN 35 H Creatinine 0.71 Glucose 125 H Calcium 8.2 L - ABG Interpretation ABG results: PT/INR, D-dimer PT 13.6 Seconds (9.4-12.1) H 02/22/18 21:03 D-Dimer 793 ng/mLFEU (0-500) H 02/22/18 21:03 - Impressions Impressions Abdomen/Pelvis Ultrasound 03/09/18 07:23 IMPRESSION: No focal hepatic abnormality. Hepatic vasculature demonstrates normal flow in the normal direction. D/ / 03/09/2018 13:54:33 Rafi Virk MD / Vianey Corado Interpreting Provider: Rafi Virk MD - VTE Documentation of Mechanical Device: Intermittent pneumatic compression device Consult Discharge Plan - Plan Referrals: Jimenez Zavala MD [Primary Care Provider] - (this patient is from an ECF no PCP appointment needed) (3) Cirrhosis Qualifiers: Hepatic cirrhosis type: unspecified hepatic cirrhosis Ascites presence: with ascites Qualified Code(s): K74.60 - Unspecified cirrhosis of liver; R18.8 - Other ascites (6) Sepsis Qualifiers: Sepsis type: sepsis due to unspecified organism Qualified Code(s): A41.9 - Sepsis, unspecified organism (9) Acute renal failure (ARF) Qualifiers: Acute renal failure type: unspecified Qualified Code(s): N17.9 - Acute kidney failure, unspecified (10) Hypothyroidism Qualifiers: Hypothyroidism type: unspecified Qualified Code(s): E03.9 - Hypothyroidism, unspecified (11) Schizophrenia Qualifiers: Schizophrenia type: unspecified Qualified Code(s): F20.9 - Schizophrenia, unspecified (13) Decubitus ulcer of ankle, stage 1 Qualifiers: Laterality: left Qualified Code(s): L89.521 - Pressure ulcer of left ankle, stage 1
--- NOTE | 2018-03-11 09:43 | Internal Med Progress Note ---
Hospitalist Progress Note - Encounter Date of Encounter: 03/11/18 Time of Encounter: 08:30 - Subjective Interval History: No acute events overnight with stable mental status. Did not have any episode of fever overnight. - Exam Vitals: Temp Pulse Resp BP Pulse Ox 98.2 F 70 16 133/88 100 03/11/18 08:05 03/11/18 08:05 03/11/18 08:05 03/11/18 08:05 03/11/18 08:05 Exam: General: Not in acute distress, alert and has some verbal output. Tracks with her eyes Cardiovascular: Normal S1 and S2, regular rate and rhythm Abdomen: Soft, Non-distended Extremities: No lower extremity edema Skin: Normal color, no rash. Stage I decubitus ulcer on L ankle and coccyx which were present at the time of admission Neuro: tardive dyskinesia noted - Assessment and Plan (1) HCAP (healthcare-associated pneumonia) Current Visit: Yes Status: Acute Assessment and Plan: Patient continues to have fever, has been prolonged course of abx with IV Zosyn/ vancomycin Repeat blood cultures pending, CXR did not reveal any significant finding other than mild GGO in R lower zone which may represent edema or pneumonitis fever less likely due to infectious process, ?drug fever ?central cause -> d/c on 03/09 stable to be transferred to non-telemetry unit prognosis extremely poor, she may eventually be transitioned to hospice (2) Persistent fever Current Visit: Yes Status: Acute Assessment and Plan: initially attributed to the above but she has remained on prolonged abx without much improvement abx d/bridgett on 03/09, afebrile 24 hours -ve for LE DVT, no portal vein thrombosis likely related to central cause or drug (3) Cirrhosis Current Visit: Yes Status: Acute Assessment and Plan: new diagnosis, unclear etiology but given her poor prognosis to start with, family opted for no further workup US doppler -ve for portal vein thrombosis Ensure BM to prevent hepatic encephalopathy (4) Encephalopathy Current Visit: No Status: Acute Assessment and Plan: Patient continues not to communicate much as she has been doing for most of her hospital stay improving since the weekend along with correction of hypernatremia, normal x 2 days Neurology following and believes patient is close to baseline will continue the current amount of free water flush monitor BMP tomorrow (5) Hypernatremia Current Visit: Yes Status: Acute Assessment and Plan: as above (6) Sepsis Current Visit: Yes Status: Suspected Assessment and Plan: Resolved; continue to monitor (7) Neuroleptic malignant syndrome Current Visit: Yes Status: Ruled-out Assessment and Plan: Initially suspected given fever, mydriasis, and the suspicious agents that patient had been on not actively treating with dantrolene as she had been improving without it, continuing ativan as she had been chronically on BZD continue to hold off anti-psychotics, will contact psych on Monday for further rec now that she is out of 14 days Will continue to monitor (8) Tardive dyskinesia Current Visit: Yes Status: Chronic Assessment and Plan: Patient has chronic significant history of tardive dyskinesia with extensive head, perioral and upper extremity tremors. Patient does have a history of Parkinson's disease per neurology and stiffness could be baseline. (9) Acute renal failure (ARF) Current Visit: Yes Status: Acute Assessment and Plan: Resolved; continue to monitor (10) Hypothyroidism Current Visit: Yes Status: Chronic Assessment and Plan: TSH 1.3 on 01/23/18 Continue levothyroxine, switching back from IV to Gtube (11) Schizophrenia Current Visit: Yes Status: Chronic Assessment and Plan: Psychiatry was consulted with recommendations to discontinue patient's medications for schizophrenia (Haldol, clonazepam and trazodone) Recommendations to restart medications in 2 weeks, will contact psych on Mon Patient currently on IV Ativan as needed (12) DVT prophylaxis Current Visit: Yes Status: Acute Assessment and Plan: On subcutaneous heparin. (13) Decubitus ulcer of ankle, stage 1 Current Visit: Yes Status: Acute Assessment and Plan: present prior to the admission nursing care per protocol (14) Decubitus ulcer of coccygeal region, stage 1 Current Visit: Yes Status: Acute Assessment and Plan: present prior to the admission nursing care per protocol - Time Spent with Patient Total time spent is greater than 50% in coordination of care (as documented) at patient's floor/unit and/or counseling patient: Plan of Care Discussed with: nurse Internal Medicine: Result - Labs CBC & Chem 7: 03/09/18 03:20 03/10/18 04:03 - ABG Interpretation ABG results: PT/INR, D-dimer PT 13.6 Seconds (9.4-12.1) H 02/22/18 21:03 D-Dimer 793 ng/mLFEU (0-500) H 02/22/18 21:03 - Impressions Impressions Abdomen/Pelvis Ultrasound 03/09/18 07:23 IMPRESSION: No focal hepatic abnormality. Hepatic vasculature demonstrates normal flow in the normal direction. D/ / 03/09/2018 13:54:33 Rafi Virk MD / Vianey Corado Interpreting Provider: Rafi Virk MD - VTE Documentation of Mechanical Device: Intermittent pneumatic compression device Consult Discharge Plan - Plan Referrals: Jimenez Zavala MD [Primary Care Provider] - (this patient is from an [facility] no PCP appointment needed) (3) Cirrhosis Qualifiers: Hepatic cirrhosis type: unspecified hepatic cirrhosis Ascites presence: with ascites Qualified Code(s): K74.60 - Unspecified cirrhosis of liver; R18.8 - Other ascites (6) Sepsis Qualifiers: Sepsis type: sepsis due to unspecified organism Qualified Code(s): A41.9 - Sepsis, unspecified organism (9) Acute renal failure (ARF) Qualifiers: Acute renal failure type: unspecified Qualified Code(s): N17.9 - Acute kidney failure, unspecified (10) Hypothyroidism Qualifiers: Hypothyroidism type: unspecified Qualified Code(s): E03.9 - Hypothyroidism, unspecified (11) Schizophrenia Qualifiers: Schizophrenia type: unspecified Qualified Code(s): F20.9 - Schizophrenia, unspecified (13) Decubitus ulcer of ankle, stage 1 Qualifiers: Laterality: left Qualified Code(s): L89.521 - Pressure ulcer of left ankle, stage 1
[2018-03-11] MEDS: Cyanocobalamin (B-12) 1,000 MCG TABLET GTUBE SCH (09:50)
[2018-03-11] MEDS: *HR* Heparin 5,000 UNIT/ML VIAL SQ SCH ×2 (09:50→19:55)
[2018-03-11] MEDS: Magic Mouthwash 10 ML UD Cup PO SCH ×4 (09:50→20:01)
[2018-03-11] MEDS: Folic Acid 1 MG TABLET GTUBE SCH (09:50)
[2018-03-12 02:05] LABS: Basophils % 0.1 %; Mean Corpuscular Volume 98.2 fL (83.0-100.0)
[2018-03-12 02:07] LABS: Eosinophils # 0.2 K/mcL (0.0-0.6); Eosinophils % 1.9 %; Hematocrit 27.5 % (35.3-44.9); Immature Granulocytes % 0.4 % (0-4); Immature Platelets 16.8 % (1.1-6.1); Lymphocytes # 1.1 K/mcL (0.6-4.6); Lymphocytes % 10.2 %; Mean Corpuscular HGB Conc 32.7 g/dL (31.6-35.5); Mean Corpuscular Hemoglobin 32.1 pg (28.0-33.3); Mean Platelet Volume 14.4 fL (9.4-12.4); Monocytes # 1.2 K/mcL (0.0-1.3); Monocytes % 10.9 %; Neutrophils # 8.3 K/mcL (1.6-8.9); Red Cell Distribution Width 16.7 % (11.5-14.5); Segmented Neutrophils % 76.5 %
[2018-03-12 02:09] LABS: Platelet Count 94 K/mcL (140-400)
[2018-03-12 02:26] LABS: BUN/Creatinine Ratio 61 (6-26); Blood Urea Nitrogen 30 mg/dL (6-20); Calcium 8.2 mg/dL (8.6-10.3); Carbon Dioxide 26 mEq/L (23-29); Chloride 104 mEq/L (98-107); Glucose 129 mg/dL (70-105); Osmolality,Calculated 282 (280-300); Potassium 4.7 mEq/L (3.5-5.1); Sodium 132 mEq/L (136-145); eGFR For Non-African Americans > 60 (> 60)
[2018-03-12] MEDS: *HR* Heparin 5,000 UNIT/ML VIAL SQ SCH ×2 (06:43→17:38)
[2018-03-12] MEDS: Cyanocobalamin (B-12) 1,000 MCG TABLET GTUBE SCH (09:46)
[2018-03-12] MEDS: Magic Mouthwash 10 ML UD Cup PO SCH ×4 (09:46→21:33)
[2018-03-12] MEDS: Folic Acid 1 MG TABLET GTUBE SCH (09:46)
[2018-03-12] MEDS: Acetaminophen 650 MG RECTAL SUPP RC PRN (10:57)
--- NOTE | 2018-03-12 11:50 | Internal Med Progress Note ---
Hospitalist Progress Note - Encounter Date of Encounter: 03/12/18 Time of Encounter: 10:20 - Subjective Interval History: No acute events overnight with stable mental status. RN expressed concern over the right eye that appeared red and seems to be oozing yellowish discharge. Tmax 100.9 this AM - Exam Vitals: Temp Pulse Resp BP Pulse Ox 100.9 F H 98 14 151/53 99 03/12/18 11:07 03/12/18 11:07 03/12/18 11:07 03/12/18 11:07 03/12/18 11:07 Exam: General: Not in acute distress, alert and has some verbal output. Tracks with her eyes Eye: R eye appears to be erythematous with yellowish discharges Cardiovascular: Normal S1 and S2, regular rate and rhythm Abdomen: Soft, Non-distended Extremities: No lower extremity edema Skin: Normal color, no rash. Stage I decubitus ulcer on L ankle and coccyx which were present at the time of admission Neuro: tardive dyskinesia noted - Assessment and Plan (1) HCAP (healthcare-associated pneumonia) Current Visit: Yes Status: Acute Assessment and Plan: Patient continues to have fever, has been prolonged course of abx with IV Zosyn/ vancomycin Repeat blood cultures pending, CXR did not reveal any significant finding other than mild GGO in R lower zone which may represent edema or pneumonitis fever less likely due to infectious process, ?drug fever ?central cause -> d/c on 03/09 prognosis extremely poor, she may eventually be transitioned to hospice (2) Persistent fever Current Visit: Yes Status: Acute Assessment and Plan: initially attributed to the above but she has remained on prolonged abx without much improvement abx d/bridgett on 03/09, afebrile 24 hours -ve for LE DVT, no portal vein thrombosis likely related to central cause or drug PRN tylenol (3) Neuroleptic malignant syndrome Current Visit: Yes Status: Ruled-out Assessment and Plan: Initially suspected given fever, mydriasis, and the suspicious agents that patient had been on not actively treating with dantrolene as she had been improving without it, continuing ativan as she had been chronically on BZD d/w psych, she will always be at higher risk of NMS but since she has been off anti-psychotics for > 14 days, can rechallenge with 5mg of zyprexa today and monitor vitals + rigidity obtain CK tomorrow (4) Cirrhosis Current Visit: Yes Status: Acute Assessment and Plan: new diagnosis, unclear etiology but given her poor prognosis to start with, family opted for no further workup US doppler -ve for portal vein thrombosis Ensure BM to prevent hepatic encephalopathy (5) Encephalopathy Current Visit: No Status: Acute Assessment and Plan: Patient continues not to communicate much as she has been doing for most of her hospital stay improving since the weekend along with correction of hypernatremia, 132 today Neurology following and believes patient is close to baseline will decrease free water flush to 200ml Q4 monitor BMP tomorrow (6) Hypernatremia Current Visit: Yes Status: Acute Assessment and Plan: as above (7) Sepsis Current Visit: Yes Status: Suspected Assessment and Plan: Resolved; continue to monitor (8) Tardive dyskinesia Current Visit: Yes Status: Chronic Assessment and Plan: Patient has chronic significant history of tardive dyskinesia with extensive head, perioral and upper extremity tremors. Patient does have a history of Parkinson's disease per neurology and stiffness could be baseline. (9) Acute renal failure (ARF) Current Visit: Yes Status: Acute Assessment and Plan: Resolved; continue to monitor (10) Hypothyroidism Current Visit: Yes Status: Chronic Assessment and Plan: TSH 1.3 on 01/23/18 Continue levothyroxine, switching back from IV to Gtube (11) Schizophrenia Current Visit: Yes Status: Chronic Assessment and Plan: Psychiatry was consulted with recommendations to discontinue patient's medications for schizophrenia (Haldol, clonazepam and trazodone) Recommendations to restart medications in 2 weeks, zyprexa 5mg restarted today after d/w psych today Patient currently on IV Ativan as needed (12) DVT prophylaxis Current Visit: Yes Status: Acute Assessment and Plan: On subcutaneous heparin. (13) Decubitus ulcer of ankle, stage 1 Current Visit: Yes Status: Acute Assessment and Plan: present prior to the admission nursing care per protocol (14) Decubitus ulcer of coccygeal region, stage 1 Current Visit: Yes Status: Acute Assessment and Plan: present prior to the admission nursing care per protocol - Time Spent with Patient Total time spent is greater than 50% in coordination of care (as documented) at patient's floor/unit and/or counseling patient: Plan of Care Discussed with: nurse Internal Medicine: Result - Labs CBC & Chem 7: 03/12/18 01:50 03/12/18 01:50 Labs: Short CBC 03/12/18 Range/Units 01:50 WBC 10.8 (4.3-11.1) K/mcL Hgb 9.0 L (11.5-15.4) g/dL Hct 27.5 L (35.3-44.9) % Plt Count 94 L D (140-400) K/mcL Neutrophils # 8.3 (1.6-8.9) K/mcL BMP 03/12/18 01:50 Sodium 132 L Potassium 4.7 Chloride 104 Carbon Dioxide 26 BUN 30 H Creatinine 0.49 L Glucose 129 H Calcium 8.2 L - ABG Interpretation ABG results: PT/INR, D-dimer PT 13.6 Seconds (9.4-12.1) H 02/22/18 21:03 D-Dimer 793 ng/mLFEU (0-500) H 02/22/18 21:03 - VTE Documentation of Mechanical Device: Intermittent pneumatic compression device Consult Discharge Plan - Plan Referrals: Jimenez Zavala MD [Primary Care Provider] - (this patient is from an [facility] no PCP appointment needed) (4) Cirrhosis Qualifiers: Hepatic cirrhosis type: unspecified hepatic cirrhosis Ascites presence: with ascites Qualified Code(s): K74.60 - Unspecified cirrhosis of liver; R18.8 - Other ascites (7) Sepsis Qualifiers: Sepsis type: sepsis due to unspecified organism Qualified Code(s): A41.9 - Sepsis, unspecified organism (9) Acute renal failure (ARF) Qualifiers: Acute renal failure type: unspecified Qualified Code(s): N17.9 - Acute kidney failure, unspecified (10) Hypothyroidism Qualifiers: Hypothyroidism type: unspecified Qualified Code(s): E03.9 - Hypothyroidism, unspecified (11) Schizophrenia Qualifiers: Schizophrenia type: unspecified Qualified Code(s): F20.9 - Schizophrenia, unspecified (13) Decubitus ulcer of ankle, stage 1 Qualifiers: Laterality: left Qualified Code(s): L89.521 - Pressure ulcer of left ankle, stage 1
[2018-03-12] MEDS: Erythromycin OPTH Oint RIGHT EYE SCH ×2 (17:39→20:10)
[2018-03-12] MEDS ORDERED: OLANZapine 5 MG TAB.RAPDIS PO SCH ×2 (18:00)
[2018-03-13] MEDS: Acetaminophen 650 MG RECTAL SUPP RC PRN (00:37)
[2018-03-13 00:55] LABS: ABG Base Excess 4 mEq/L (-2 to 3); ABG HCO3 27 mEq/L (21-27); ABG Oxygen Saturation 99 % (95-98); ABG PCO2 37 mmHg (35-45); ABG PH 7.48 pH Units (7.32-7.45); ABG PO2 149 mmHg (85-104); ABG TCO2 28 mEq/L (20-26)
[2018-03-13] MEDS: *HR* Heparin 5,000 UNIT/ML VIAL SQ SCH ×2 (06:08→17:23)
[2018-03-13 07:32] LABS: Basophils % 0.1 %; Eosinophils # 0.1 K/mcL (0.0-0.6); Eosinophils % 0.7 %; Hematocrit 25.1 % (35.3-44.9); Hemoglobin 8.2 g/dL (11.5-15.4); Immature Granulocytes % 0.4 % (0-4); Lymphocytes # 1.3 K/mcL (0.6-4.6); Lymphocytes % 13.2 %; Mean Corpuscular HGB Conc 32.7 g/dL (31.6-35.5); Mean Corpuscular Hemoglobin 31.5 pg (28.0-33.3); Mean Corpuscular Volume 96.5 fL (83.0-100.0); Mean Platelet Volume 13.4 fL (9.4-12.4); Monocytes # 1.3 K/mcL (0.0-1.3); Monocytes % 13.3 %; Platelet Count 107 K/mcL (140-400); Red Cell Distribution Width 17.2 % (11.5-14.5); Segmented Neutrophils % 72.3 %
[2018-03-13 07:52] LABS: BUN/Creatinine Ratio 48 (6-26); Blood Urea Nitrogen 29 mg/dL (6-20); Calcium 7.8 mg/dL (8.6-10.3); Carbon Dioxide 26 mEq/L (23-29); Chloride 104 mEq/L (98-107); Creatine Kinase 151 Units/L (30-223); Glucose 176 mg/dL (70-105); Osmolality,Calculated 286 (280-300); Potassium 4.3 mEq/L (3.5-5.1); Sodium 133 mEq/L (136-145); eGFR For Non-African Americans > 60 (> 60)
[2018-03-13] MEDS: Cyanocobalamin (B-12) 1,000 MCG TABLET GTUBE SCH (09:45)
[2018-03-13] MEDS: Magic Mouthwash 10 ML UD Cup PO SCH ×3 (09:45→17:23)
[2018-03-13] MEDS: Folic Acid 1 MG TABLET GTUBE SCH (09:45)
[2018-03-13] MEDS: Erythromycin OPTH Oint RIGHT EYE SCH ×2 (09:48→17:24)
--- NOTE | 2018-03-13 13:54 | Internal Med Progress Note ---
Hospitalist Progress Note - Encounter Date of Encounter: 03/13/18 Time of Encounter: 12:40 - Subjective Interval History: Overnight events noted. Mental status remained stable but patient developed yet another fever of 103.2 at midnight. She was restarted on zyprexa 5mg yesterday. - Exam Vitals: Temp Pulse Resp BP Pulse Ox 98.5 F 67 9 112/72 100 03/13/18 11:53 03/13/18 11:53 03/13/18 11:53 03/13/18 11:53 03/13/18 11:53 Exam: General: Not in acute distress, alert and has some verbal output. Tracks with her eyes Eye: R eye appears to be erythematous with yellowish discharges Cardiovascular: Normal S1 and S2, regular rate and rhythm Abdomen: Soft, Non-distended Extremities: No lower extremity edema Skin: Normal color, no rash. Stage I decubitus ulcer on L ankle and coccyx which were present at the time of admission Neuro: tardive dyskinesia noted - Assessment and Plan (1) Persistent fever Current Visit: Yes Status: Acute Assessment and Plan: initially attributed to the above but she has remained on prolonged abx without much improvement abx d/bridgett on 03/09, WBC had been normal -ve for LE DVT, no portal vein thrombosis zyprexa was rechallenged yesterday, had fever of 103.2, lasted for a few hours still likely related to central cause or drug but will d/c zyprexa to remove the potential confounding factor for fever PRN tylenol (2) HCAP (healthcare-associated pneumonia) Current Visit: Yes Status: Acute Assessment and Plan: Patient continues to have fever, has been prolonged course of abx with IV Zosyn/ vancomycin Repeat blood cultures pending, CXR did not reveal any significant finding other than mild GGO in R lower zone which may represent edema or pneumonitis fever less likely due to infectious process, ?drug fever ?central cause -> d/c on 03/09 prognosis extremely poor, consult to palliative for goals of care (3) Neuroleptic malignant syndrome Current Visit: Yes Status: Ruled-out Assessment and Plan: Initially suspected given fever, mydriasis, and the suspicious agents that patient had been on not actively treating with dantrolene as she had been improving without it, continuing ativan as she had been chronically on BZD d/w psych, she will always be at higher risk of NMS but since she has been off anti-psychotics for > 14 days, can rechallenge with 5mg of zyprexa today and monitor vitals + rigidity developed fever of 103.2 overnight, CK normal and no rigidity noted nevertheless, will discontinue zyprexa to remove any confounding factor for fever and defer for outpatient follow up (4) Cirrhosis Current Visit: Yes Status: Acute Assessment and Plan: new diagnosis, unclear etiology but given her poor prognosis to start with, family opted for no further workup US doppler -ve for portal vein thrombosis Ensure BM to prevent hepatic encephalopathy Plt stable (5) Encephalopathy Current Visit: No Status: Acute Assessment and Plan: Patient continues not to communicate much as she has been doing for most of her hospital stay improving since the weekend along with correction of hypernatremia, Na stable now on free water flush of 200ml Q4 Neurology following and believes patient is close to baseline (6) Hypernatremia Current Visit: Yes Status: Acute Assessment and Plan: as above (7) Sepsis Current Visit: Yes Status: Resolved Assessment and Plan: Resolved; continue to monitor (8) Tardive dyskinesia Current Visit: Yes Status: Chronic Assessment and Plan: Patient has chronic significant history of tardive dyskinesia with extensive head, perioral and upper extremity tremors. Patient does have a history of Parkinson's disease per neurology and stiffness could be baseline. (9) Acute renal failure (ARF) Current Visit: Yes Status: Resolved Assessment and Plan: Resolved; continue to monitor (10) Hypothyroidism Current Visit: Yes Status: Chronic Assessment and Plan: TSH 1.3 on 01/23/18 Continue levothyroxine (11) Schizophrenia Current Visit: Yes Status: Chronic Assessment and Plan: Psychiatry was consulted with recommendations to discontinue patient's medications for schizophrenia (Haldol, clonazepam and trazodone) Recommendations to restart medications in 2 weeks, zyprexa 5mg restarted yesterday after discussing with psych but will d/c during her inpatient stay for the reasons mentioned above Patient currently on IV Ativan as needed (12) DVT prophylaxis Current Visit: Yes Status: Acute Assessment and Plan: On subcutaneous heparin. (13) Decubitus ulcer of ankle, stage 1 Current Visit: Yes Status: Acute Assessment and Plan: present prior to the admission nursing care per protocol (14) Decubitus ulcer of coccygeal region, stage 1 Current Visit: Yes Status: Acute Assessment and Plan: present prior to the admission nursing care per protocol - Time Spent with Patient Total time spent is greater than 50% in coordination of care (as documented) at patient's floor/unit and/or counseling patient: Plan of Care Discussed with: other (discussed with palliative care) Internal Medicine: Result - Labs CBC & Chem 7: 03/13/18 06:58 03/13/18 06:58 Labs: Short CBC 03/13/18 Range/Units 06:58 WBC 9.7 (4.3-11.1) K/mcL Hgb 8.2 L (11.5-15.4) g/dL Hct 25.1 L (35.3-44.9) % Plt Count 107 L (140-400) K/mcL Neutrophils # 7.0 (1.6-8.9) K/mcL BMP 03/13/18 06:58 Sodium 133 L Potassium 4.3 Chloride 104 Carbon Dioxide 26 BUN 29 H Creatinine 0.61 Glucose 176 H Calcium 7.8 L - ABG Interpretation ABG results: ABG ABG pH 7.48 pH Units (7.32-7.45) H 03/13/18 00:46 ABG pCO2 37 mmHg (35-45) 03/13/18 00:46 ABG pO2 149 mmHg (85-104) H 03/13/18 00:46 ABG O2 Saturation 99 % (95-98) H 03/13/18 00:46 PT/INR, D-dimer PT 13.6 Seconds (9.4-12.1) H 02/22/18 21:03 D-Dimer 793 ng/mLFEU (0-500) H 02/22/18 21:03 - VTE Documentation of Mechanical Device: Intermittent pneumatic compression device Consult Discharge Plan - Plan Referrals: Jimenez Zavala MD [Primary Care Provider] - (this patient is from an [facility] no PCP appointment needed) (4) Cirrhosis Qualifiers: Hepatic cirrhosis type: unspecified hepatic cirrhosis Ascites presence: with ascites Qualified Code(s): K74.60 - Unspecified cirrhosis of liver; R18.8 - Other ascites (7) Sepsis Qualifiers: Sepsis type: sepsis due to unspecified organism Qualified Code(s): A41.9 - Sepsis, unspecified organism (9) Acute renal failure (ARF) Qualifiers: Acute renal failure type: unspecified Qualified Code(s): N17.9 - Acute kidney failure, unspecified (10) Hypothyroidism Qualifiers: Hypothyroidism type: unspecified Qualified Code(s): E03.9 - Hypothyroidism, unspecified (11) Schizophrenia Qualifiers: Schizophrenia type: unspecified Qualified Code(s): F20.9 - Schizophrenia, unspecified (13) Decubitus ulcer of ankle, stage 1 Qualifiers: Laterality: left Qualified Code(s): L89.521 - Pressure ulcer of left ankle, stage 1
--- NOTE | 2018-03-13 16:06 | Palliative - Consult Note ---
Date of Encounter: 03/13/18 Time of Encounter: 14:00 - Assessment and Plan (1) Schizoaffective disorder, bipolar type Current Visit: No Status: Chronic Assessment and plan: Psychiatric consult appreciated. Patient unable to tolerate Zyprexa. (2) Debility, unspecified Current Visit: No Status: Chronic Assessment and plan: Patient has chronic debility. Discharge to [facility] for care. (3) Acute kidney injury superimposed on chronic kidney disease Current Visit: Yes Status: Acute Assessment and plan: BUN/Creatinine improving. (4) Tardive dyskinesia Current Visit: Yes Status: Chronic Assessment and plan: Manage symptomatically with Oxycodone, Ativan, and Klonopin for comfort. (5) Neuroleptic malignant syndrome Current Visit: Yes Status: Ruled-out Assessment and plan: Neurology consult appreciated. (6) Cirrhosis Current Visit: Yes Status: Acute Assessment and plan: Family desires no further workup for cirrhosis. Qualifiers: Hepatic cirrhosis type: unspecified hepatic cirrhosis Ascites presence: with ascites Qualified Code(s): K74.60 - Unspecified cirrhosis of liver; R18.8 - Other ascites (7) Persistent fever Current Visit: Yes Status: Acute Assessment and plan: Patient having intermittently persistent fevers. Continue Tylenol PRN. (8) Goals of care, counseling/discussion Current Visit: Yes Status: Acute Assessment and plan: Conducted family meeting with patient's mother (Alicia, ), Father ( Benito), and brother (Pierre) regarding goals of care. Family agreed it would be taxing for patient to keep returning to ECF. Family opted to transition patient to DNRCC Code status; state form completed. Family opted to enter whatever hospice agency [facility] works with as that is where patient to be residing. Inquired with [facility] regarding which hospice agencies they work with, informed [facility] and [facility]. Notified Pamela with [facility] of referral. Notified primary RN Aneta and Dr. Gleason of plan to discharge today to [facility] with [facility]. Rx written for Ativan, Oxycodone, and Dulcolax. Palliative-CN HPI - Data of Consult Patient: new to practice Consult date: 03/13/18 Requesting Physician: Terrell Sharma MD Primary Care Provider: Dirk N Juschka, MD - Consult Narrative Palliative Care/Comfort Measures: Palliative care Reason for consult: Goals of care History of present illness: Ms. Mendoza is a 37 year old female Arrived to [place] [facility] on 02/22/18 for altered mental status, decreased oral intake, difficulty with swallowing food, abdominal distension and health-care associated pneumonia, via EMS. PMH: Anoxic brain injury, Drug abuse, Schizophrenia, Chronic dysphasia, Arthritis, and COPD. Family and fdc staff state concerned over abdomen feeling rigid. CTA of the chest showed: no PE ; Bilateral pulmonary infiltrates with mild bilateral pleural effusions; and evidence of chronic granulomatous disease. Chest x-ray showed Borderline pulmonary vascular congestion with no acute abnormality detected. EKG showed: Sinus rhythm, possible right ventricular conduction delay, ST deviation and moderate T-wave abnormality. CT of the abdomen and pelvis without contrast showing: Limited examination due to paucity of intra-abdominal fat with crowding of soft tissue structures, motion/ streak artifact and diffuse anasarca ; Large stool burden is seen throughout mildly dilated loops of colon up to 7 cm ; No evidence of small bowel obstruction; Appendix is not visualized; and Trace bilateral pleural effusions. CT of head/brain without contrast showing: The examination is slightly limited by motion degradation, otherwise no definite acute intracranial findings; and Minimal sphenoid sinusitis. Patient admitted and medically managed for HCAP, constipation, Acute kidney injury superimposed on chronic kidney disease, tremor, essential hypertension, abdominal distension , and Sepsis. MRI of head/brain performed without contrast showing: There is diffuse high signal in the central [place]. 02/24/18: Patient had seizure activity and elevated temperature of 102.3F overnight with fluctuation of heart rate and rigidity. New diagnosis Neuroleptic malignant syndrome and Tardive dyskinesia; medically managed by primary team. EEG performed: Findings WNL. Neurology consult completed for AMS; recommend medical and supportive care. Psychiatry consulted for NMS. 02/25/18: Patient found to have bilateral dilated pupils and large white mass in the patients mouth; recommend ENT consult. Psychiatry signed off. 02/26/18: Patient failed Swallow evaluation; plan for barium swallow. During barium swallow, patient not following commands. Repeat MRI without contrast shows: Stable MRI; continued demonstration of diffuse high signal within the [place] and no new findings. Intermittent waxing and waning of mentation noted throughout stay. 02/28/18: Recommendation for PEG tube. After 7 days of IV antibiotics, patient remains febrile and Infectious disease consulted. 03/01/18: Chest x-ray showing: Evidence for bilateral perihilar airspace disease and bilateral pleural effusions. Peg tube ordered for 03/02/18. Infectious disease consulted for severe sepsis, HCAP, Elevated LFTs; repeat LFTs to rule out cholecystitis and consider Hep A serology. CT of the abdomen without IV contrast showing: Decreased caliber of colon with dense barium and stool mixed from a recent modified barium swallow; No mucosal abnormalities; No evidence of proximal bowel obstruction; Worsening bilateral pleural effusion with significant atelectasis in both lower lobes; and suspected ascites and anasarca. 03/02/18: Neurology signed off. Ultrasound of RUQ performed showing: Coarse liver echotexture consistent with an element of cirrhosis; Two echogenic lesions as described may represent hemangiomas or other neoplasm; No evidence of gallbladder or biliary disease; and Large pleural effusion and likely trace of ascites. Surgery signed off post PEG placement. 03/05/18 Chest x-ray showing Asymmetric ground-glass opacification in the right lower lung zone with a small pleural effusion. Patient beginning to have low grade temperatures again. : Recommend tertiary care facility for higher level of care versus palliative consult for overall poor prognosis. New diagnosis cirrhosis; Family opted for no further workup due to prognosis. Repeat ultrasound showing: No focal hepatic abnormality with Hepatic vasculature demonstrates normal flow in the normal direction. Venous imaging normal. 03/09/18: Antibiotics stopped. Code status changed to DNRCCA/DNI. Continued fevers of unknown origin. 03/12/18: Restarted Zyprexa yesterday and had elevated temperature to 103.2F over night. Zyprexa stopped. Palliative care consult for goals of care and family support. Patient resting with eyes open upon arrival for assessment. Patient was able to follow commands and follow this fiction and nonfiction writer prose around the room with her eyes. Patient was able to answer yes/no questions by shaking her head. Noted to be alert to person, unsure if alert to place/time. No family present at bedside. Patient denied pain, anxiety, shortness of breath. Patient agreed to family meeting to discuss goals of care with family. CC: Terrell Sharma MD Past Med Surg Social Fam HX - Past Medical History Medical history: arthritis, asthma, COPD, GERD, hypertension, migraine, osteoporosis, seizures, thyroid disease, syncope, other Additional medical history: PARKINSONS Psychiatric history: schizophrenia - Past Surgical History Surgical History: orthopedic, other, sinus surgery, other Additional surgical history: KNEE SURGERY - Social History Smoking Status: Unknown if ever smoked Smokeless Tobacco Status: No Alcohol use: unknown Drug use: unknown - Family History Father Living Status: Mother Daughter Family Member Ethnicity: Non- Mother Family Member Ethnicity: Non- Living Status: Still Living Hx Family Respiratory Disorders: No Hx Family Cancer: No Medications and Allergies Omeprazole [PriLOSEC] 20 mg PO DAILY 07/28/15 [History] Levothyroxine [Synthroid] 125 mcg PO QAM 11/30/15 [History] Amantadine [Symmetrel] 100 mg PO QID 07/09/17 [History] Topiramate [Topamax] 200 mg PO TID 07/09/17 [History] traZODone [TraZODone] 50 mg PO HS PRN 07/09/17 [History] Acetaminophen [Tylenol] 650 mg PO Q8HR PRN 02/23/18 [History] Ascorbic Acid [Vitamin C] 250 mg PO DAILY 02/23/18 [History] Calcium Citrate 950 mg PO DAILY 02/23/18 [History] Cyanocobalamin (Vitamin B-12) [Vitamin B-12] 100 mcg PO DAILY 02/23/18 [History] Docusate Sodium [Colace] 100 mg PO BID 02/23/18 [History] Ergocalciferol (VITAMIN D2) [Vitamin D2] 50,000 unit PO QWEEK 02/23/18 [History] Folic Acid 1 mg PO DAILY 02/23/18 [History] Gabapentin [Neurontin] 1,200 mg PO 0800 02/23/18 [History] Gabapentin [Neurontin] 900 mg PO 1400,2000 02/23/18 [History] Haloperidol [Haldol] 1 mg PO BID 02/23/18 [History] HydrOXYzine 10 mg PO Q6H PRN 02/23/18 [History] LORazepam [Ativan] 0.5 mg PO TID PRN 02/23/18 [History] Loratadine [Claritin] 10 mg PO DAILY 02/23/18 [History] Magnesium Oxide [Mgo] 400 mg PO BID 02/23/18 [History] Melatonin 6 mg PO HS PRN 02/23/18 [History] Mirtazapine [Remeron] 15 mg PO HS 02/23/18 [History] Multivitamin [One Daily Multivitamin] 1 tab PO DAILY 02/23/18 [History] OLANZapine [Zyprexa] 7.5 mg PO Q12H 02/23/18 [History] Ondansetron ODT [Zofran ODT] 4 mg SL Q6HR PRN 02/23/18 [History] Polyethylene Glycol 3350 [MiraLAX] 17 gm PO DAILY 02/23/18 [History] Tramadol HCl [Ultram] 50 mg PO Q6H PRN 02/23/18 [History] Zinc Sulfate [Zinc Sulfate] 220 mg PO DAILY 02/23/18 [History] clonazePAM [Klonopin] 1 mg PO TID PRN 02/23/18 [History] Bisacodyl [Dulcolax] 10 mg RC DAILY PRN #7 supp.rect 03/13/18 [Rx] LORazepam Oral Conc [Ativan Oral Conc] 0.5 mg PO Q4HR PRN 7 Days #15 mls [Rx] OXYCODONE Oral CONC [Oxycodone Oral Conc] 5 mg PO Q4H PRN 7 Days #15 ml [Rx] 3 Allergy/AdvReac Type Severity Reaction Status Date / Time aripiprazole [From Abilify] Allergy Difficulty Verified 02/23/18 07:51 Breathing aspirin Allergy Difficulty Verified 02/23/18 07:51 Breathing ibuprofen Allergy Difficulty Verified 02/23/18 07:51 Breathing latex Allergy Difficulty Verified 02/23/18 07:51 Breathing metronidazole [From Flagyl] Allergy Difficulty Verified 02/23/18 07:51 Breathing naproxen [From Aleve] Allergy Difficulty Verified 02/23/18 07:51 Breathing Sulfa (Sulfonamide AdvReac Vomiting Verified 02/23/18 07:51 Antibiotics) pea Allergy Unknown unsure Uncoded 02/23/18 07:51 ROS unobtainable: due to mental status Palliative Care-Exam - Constitutional Vitals: Temp Pulse Resp BP Pulse Ox 98.5 F 67 9 112/72 100 03/13/18 11:53 03/13/18 11:53 03/13/18 11:53 03/13/18 11:53 03/13/18 11:53 General appearance: Present: cooperative, no acute distress, thin. Absent: febrile - Head Head Exam: Present: atraumatic, normal inspection - Eye Eye exam: Present: EOMI, normal appearance, conjuntiva pink. Absent: periorbital swelling, periorbital tenderness Pupils: Present: fixed - ENT ENT exam: Present: mucous membranes dry, normal external ear exam. Absent: normal oropharynx (dry) - Expanded ENT Exam Mouth Exam: Absent: drooling - Neck Neck exam: Present: full ROM, normal inspection - Respiratory Respiratory exam: Present: CTAB. Absent: accessory muscle use, respiratory distress - Cardiovascular Cardiovascular exam: Present: +S1, +S2 - Expanded Cardiovascular Exam Peripheral pulses: 2+: Radial (L), Radial (R), Posterior Tibialis (L), Posterior Tibialis (R), Dorsalis Pedis (L) PM, Dorsalis Pedis (R) PM - GI/Abdominal Exam GI/Abdominal exam: Present: diminished bowel sounds, distended, soft. Absent: tenderness - Expanded GI/Abdominal Exam GI/Abdominal exam: Present: ascites - Rectal Rectal exam: Present: deferred - Catheter Type: Urethral (Bonilla) - Extremities Exam Extremities exam: Absent: calf tenderness, pedal edema (edema 2+ to bilateral hands and feet.) - Neurological Exam Neurological exam: Present: alert, strengths equal and symetr throughout (weak) . Absent: oriented X3 - Expanded Neurological Exam Patient oriented to: Present: person Speech: Present: total aphasia Coma Scale Eye Opening: To Voice Coma Scale Motor Response: Obeys Commands Coma Scale Verbal Response: None Coma Scale Total: 10 - Psychiatric Psychiatric exam: Present: flat affect - Skin Skin exam: Present: dry, warm. Absent: intact Internal Medicine - CN: Reslt - Labs CBC & Chem 7: 03/13/18 06:58 03/13/18 06:58 Labs: Short CBC 03/13/18 Range/Units 06:58 WBC 9.7 (4.3-11.1) K/mcL Hgb 8.2 L (11.5-15.4) g/dL Hct 25.1 L (35.3-44.9) % Plt Count 107 L (140-400) K/mcL Neutrophils # 7.0 (1.6-8.9) K/mcL BMP 03/13/18 06:58 Sodium 133 L Potassium 4.3 Chloride 104 Carbon Dioxide 26 BUN 29 H Creatinine 0.61 Glucose 176 H Calcium 7.8 L - ABG Interpretation ABG results: ABG ABG pH 7.48 pH Units (7.32-7.45) H 03/13/18 00:46 ABG pCO2 37 mmHg (35-45) 03/13/18 00:46 ABG pO2 149 mmHg (85-104) H 03/13/18 00:46 ABG O2 Saturation 99 % (95-98) H 03/13/18 00:46 PT/INR, D-dimer PT 13.6 Seconds (9.4-12.1) H 02/22/18 21:03 D-Dimer 793 ng/mLFEU (0-500) H 02/22/18 21:03 Consult Discharge Plan - Plan Referrals: Jimenez Zavala MD [Primary Care Provider] - (this patient is from an ECF no PCP appointment needed) Palliative Quality Palliative Quality: Screen for Code Status: Yes, Screen for Goals of Care: Yes, Screen for Pain: Yes, If Pain Regimen Started, Initiate Bowel Regimen: NA, Screen for Nausea/Vomitting: Yes Code Status: 03/07/18 15:12 Resuscitation Status: Active [RES] Routine Comment: Resuscitation Status: [id number] 03/13/18 15:56 DNR [Resuscitation Status: Active] [RES] Routine Comment: Resuscitation Status: DNR-Comfort Care
--- NOTE | 2018-03-13 16:08 | Discharge Summary ---
- NOTES TO OUTPATIENT PROVIDER Notes to Outpatient Provider: Patient with a history of tardive dyskinesia, schizophrenia, COPD, seizures, was admitted for fever and change in mental status. She was managed for sepsis secondary to aspiration pneumonia, possible neuroleptic malignant syndrome, and newly diagnosed cirrhosis. Despite prolonged treatment with the antibiotics and supportive care, she continued to decline and was made DNR CC after speaking to palliative. She will be discharged to [place] with hospice service. Date of Encounter: 03/13/18 Time of Encounter: 15:30 - Discharge Diagnosis (1) Persistent fever Priority: Secondary Status: Acute (2) HCAP (healthcare-associated pneumonia) Priority: Primary Status: Acute (3) Neuroleptic malignant syndrome Priority: Secondary Status: Ruled-out (4) Cirrhosis Priority: Secondary Status: Acute Qualifiers: Hepatic cirrhosis type: unspecified hepatic cirrhosis Ascites presence: with ascites Qualified Code(s): K74.60 - Unspecified cirrhosis of liver; R18.8 - Other ascites (5) Encephalopathy Priority: Secondary Status: Acute (6) Hypernatremia Priority: Secondary Status: Acute (7) Sepsis Priority: Secondary Status: Resolved Qualifiers: Sepsis type: sepsis due to unspecified organism Qualified Code(s): A41.9 - Sepsis, unspecified organism (8) Tardive dyskinesia Priority: Secondary Status: Chronic (9) Acute renal failure (ARF) Priority: Secondary Status: Resolved Qualifiers: Acute renal failure type: unspecified Qualified Code(s): N17.9 - Acute kidney failure, unspecified (10) Hypothyroidism Priority: Secondary Status: Chronic Qualifiers: Hypothyroidism type: unspecified Qualified Code(s): E03.9 - Hypothyroidism , unspecified (11) Schizophrenia Priority: Secondary Status: Chronic Qualifiers: Schizophrenia type: unspecified Qualified Code(s): F20.9 - Schizophrenia, unspecified (12) DVT prophylaxis Priority: Secondary Status: Acute (13) Decubitus ulcer of ankle, stage 1 Priority: Secondary Status: Acute Qualifiers: Laterality: left Qualified Code(s): L89.521 - Pressure ulcer of left ankle , stage 1 (14) Decubitus ulcer of coccygeal region, stage 1 Priority: Secondary Status: Acute Hospital course: Ms. Mendoza is a 37 year old female is an unfortunate female with history of tardive dyskinesia, schizophrenia on multiple antipsychotics, COPD, seizures, was admitted for fever and change in mental status. She was managed for sepsis secondary to aspiration pneumonia, possible neuroleptic malignant syndrome, and newly diagnosed cirrhosis. Despite prolonged treatment with the antibiotics and supportive care, she continued to decline and was made DNR CC after speaking to palliative. She will be discharged to [place] with hospice service. Discharge discussed with: case management, other (Palliative service) - Time Spent with Patient Total time spent providing and/or coordinating discharge services: Greater than 30 minutes - Discharge Medications Prescriptions: LORazepam Oral Conc [Ativan Oral Conc] 0.5 mg PO Q4HR PRN 7 Days #15 mls PRN Reason: Agitation Acetaminophen [Tylenol 650mg SUPP] 650 mg RC Q6HR PRN #24 supp.rect PRN Reason: Fever Erythromycin OPTH Oint 1 appl RIGHT EYE Q6HWA 5 Days #1 tube Bisacodyl [Dulcolax] 10 mg RC DAILY PRN #7 supp.rect PRN Reason: Constipation OXYCODONE Oral CONC [Oxycodone Oral Conc] 5 mg PO Q4H PRN 7 Days #15 ml PRN Reason: Pain Home Medications: Ondansetron ODT [Zofran ODT] 4 mg SL Q6HR PRN 02/23/18 [History] Polyethylene Glycol 3350 [MiraLAX] 17 gm PO DAILY 02/23/18 [History] Acetaminophen [Tylenol 650mg SUPP] 650 mg RC Q6HR PRN #24 supp.rect 03/13/18 [Rx ] Bisacodyl [Dulcolax] 10 mg RC DAILY PRN #7 supp.rect 03/13/18 [Rx] Erythromycin OPTH Oint 1 appl RIGHT EYE Q6HWA 5 Days #1 tube 03/13/18 [Rx] LORazepam Oral Conc [Ativan Oral Conc] 0.5 mg PO Q4HR PRN 7 Days #15 mls [Rx] OXYCODONE Oral CONC [Oxycodone Oral Conc] 5 mg PO Q4H PRN 7 Days #15 ml [Rx] Allergies/Adverse Reactions: 3 Allergy/AdvReac Type Severity Reaction Status Date / Time aripiprazole [From [facility]] Allergy Difficulty Verified 02/23/18 07:51 Breathing aspirin Allergy Difficulty Verified 02/23/18 07:51 Breathing ibuprofen Allergy Difficulty Verified 02/23/18 07:51 Breathing latex Allergy Difficulty Verified 02/23/18 07:51 Breathing metronidazole [From Flagyl] Allergy Difficulty Verified 02/23/18 07:51 Breathing naproxen [From Aleve] Allergy Difficulty Verified 02/23/18 07:51 Breathing Sulfa (Sulfonamide AdvReac Vomiting Verified 02/23/18 07:51 Antibiotics) pea Allergy Unknown unsure Uncoded 02/23/18 07:51 Date of admission: 02/23/18 01:50 Primary care physician: Jimenez Zavala MD Consults: 02/23/18 11:02 Consult to Recycling Director [CONS] Routine Reason for SW Consult: return to signature 02/24/18 09:03 Consult to Neurology [CONS] Routine Consulting Provider: [facility] Reason for Consult: AMS, fever, seizure-like activity with extensive h/o- tardive dyskinesia and Schizophrenia Call Completed: Yes 02/24/18 12:31 Consult to Psychiatry [CONS] Routine Consulting Provider: Psychiatry [facility] Reason consult: Altered mental status Other reason and/or additional details: Extensive h/o- schizophrenia and TD, on Haldol, BDZ, Topamax; suspected NMS with fever, rigidity , leukocytosis, seizure-like activity Time Notified: 12:32 Call Completed: Yes 02/24/18 14:50 Consult to Interpret Exam [CONS] Routine Consulting Provider: Sina Baltazar Consult to Interpret Exam: Interpret Sleep Study 03/01/18 08:29 Consult to Infectious Diseases [CONS] Routine Consulting Provider: Infectious Disease [facility] Reason for Consult: Leukocytosis with fever/failure of treatment Call Completed: Yes 03/01/18 10:17 Consult to Surgery [CONS] Routine Consulting Provider: Allan Tuttle Reason for Consult: Peg tube placement Call Completed: No 03/03/18 13:13 consult to can washer [Consult to Nutrition] [CONS] Routine Comment: Consulting Provider: NUTRITION Reason for Dietary Consult: Tube Feed Start & Manage 03/07/18 12:32 Consult to Pastoral Services [CONS] Routine Comment: Patient's family is in room now requesting to see 03/13/18 13:05 Consult to Palliative Care [CONS] Routine Comment: Consulting Provider: Palliative Care [facility] Reason for Consult: for goals of care discussion and family support Call Completed: Yes - Constitutional Vitals: Temp Pulse Resp BP Pulse Ox 98.5 F 67 9 112/72 100 03/13/18 11:53 03/13/18 11:53 03/13/18 11:53 03/13/18 11:53 03/13/18 11:53 Exam: General: Not in acute distress, alert and has some verbal output. Tracks with her eyes Eye: R eye appears to be erythematous with yellowish discharges Cardiovascular: Normal S1 and S2, regular rate and rhythm Abdomen: Soft, Non-distended Extremities: No lower extremity edema Skin: Normal color, no rash. Stage I decubitus ulcer on L ankle and coccyx which were present at the time of admission Neuro: tardive dyskinesia noted - Patient Status Disposition: Hospice - Medical Facility Condition: Serious Overall status at discharge: patient is not back to baseline - Discharge Instructions Instructions: Hypothyroidism (DC), Sepsis (DC), Pneumonia (DC) Follow Up With: Jimenez Zavala MD [Primary Care Provider] - (this patient is from an ECF no PCP appointment needed) - VTE Documentation of Mechanical Device: Intermittent pneumatic compression device
--- NOTE | 2018-03-13 19:21 | Physician Discharge Referral ---
Home Health/Hosp Referral Info Transfer to: Hospice - Diagnosis (1) Persistent fever Priority: Secondary Status: Acute (2) HCAP (healthcare-associated pneumonia) Priority: Primary Status: Acute (3) Neuroleptic malignant syndrome Priority: Secondary Status: Ruled-out (4) Cirrhosis Priority: Secondary Status: Acute (5) Encephalopathy Priority: Secondary Status: Acute (6) Hypernatremia Priority: Secondary Status: Acute (7) Sepsis Priority: Secondary Status: Resolved (8) Tardive dyskinesia Priority: Secondary Status: Chronic (9) Acute renal failure (ARF) Priority: Secondary Status: Resolved (10) Hypothyroidism Priority: Secondary Status: Chronic (11) Schizophrenia Priority: Secondary Status: Chronic (12) DVT prophylaxis Priority: Secondary Status: Acute (13) Decubitus ulcer of ankle, stage 1 Priority: Secondary Status: Acute (14) Decubitus ulcer of coccygeal region, stage 1 Priority: Secondary Status: Acute - Respiratory Orders Smoking Cessation: Smoking cessation has been advised. For more information, call the [employer] Quit Line at [phone]-NOW. - Diet/Nutrition Diet/Nutrition: List: tube feed with osmolite 1.2 at 55ml/hr + free water flush 200mg Q4 - Services Needed Home Care Orders: Hospice - Transfer Medications Prescriptions: LORazepam Oral Conc [Ativan Oral Conc] 0.5 mg PO Q4HR PRN 7 Days #15 mls PRN Reason: Agitation Acetaminophen [Tylenol 650mg SUPP] 650 mg RC Q6HR PRN #24 supp.rect PRN Reason: Fever Erythromycin OPTH Oint 1 appl RIGHT EYE Q6HWA 5 Days #1 tube Bisacodyl [Dulcolax] 10 mg RC DAILY PRN #7 supp.rect PRN Reason: Constipation OXYCODONE Oral CONC [Oxycodone Oral Conc] 5 mg PO Q4H PRN 7 Days #15 ml PRN Reason: Pain Home Medications: Ondansetron ODT [Zofran ODT] 4 mg SL Q6HR PRN 02/23/18 [History] Polyethylene Glycol 3350 [MiraLAX] 17 gm PO DAILY 02/23/18 [History] Acetaminophen [Tylenol 650mg SUPP] 650 mg RC Q6HR PRN #24 supp.rect 03/13/18 [Rx ] Bisacodyl [Dulcolax] 10 mg RC DAILY PRN #7 supp.rect 03/13/18 [Rx] Erythromycin OPTH Oint 1 appl RIGHT EYE Q6HWA 5 Days #1 tube 03/13/18 [Rx] LORazepam Oral Conc [Ativan Oral Conc] 0.5 mg PO Q4HR PRN 7 Days #15 mls [Rx] OXYCODONE Oral CONC [Oxycodone Oral Conc] 5 mg PO Q4H PRN 7 Days #15 ml [Rx] Allergies/Adverse Reactions: 3 Allergy/AdvReac Type Severity Reaction Status Date / Time aripiprazole [From Abilify] Allergy Difficulty Verified 02/23/18 07:51 Breathing aspirin Allergy Difficulty Verified 02/23/18 07:51 Breathing ibuprofen Allergy Difficulty Verified 02/23/18 07:51 Breathing latex Allergy Difficulty Verified 02/23/18 07:51 Breathing metronidazole [From Flagyl] Allergy Difficulty Verified 02/23/18 07:51 Breathing naproxen [From Aleve] Allergy Difficulty Verified 02/23/18 07:51 Breathing Sulfa (Sulfonamide AdvReac Vomiting Verified 02/23/18 07:51 Antibiotics) pea Allergy Unknown unsure Uncoded 02/23/18 07:51 Certification: Further, I certify that my clinical findings support that this patient is homebound (i.e. absences from home require considerable and taxing effort and are for medical reasons or mandaeism services or infrequently or short duration when for other reasons) because: Homebound Reason: Patient requires assistance of a person or device to safely leave home Attestation: My signature below is to certify that this patient is under my care and that I, or nurse practitioner, or a physician's assistant mechanic working with me, has a face-to -face encounter with this patient.
[2018-03-13 19:39] VITALS: BP 133/81
== END 2018-03-13 21:24 | disposition hospice, inpatient (51) | DRG 871 ==
LOC: EMEROO 20:45 → 2ANU 20:45 → SUATTDRO 02-23 01:50 → 2NNU 02-24 13:36 → 3ANU 03-11 23:16
PROVIDERS: ADMIT Internal Medicine; ATTEND Internal Medicine

== ENCOUNTER 2018-06-13 01:02 | Observation (INO) ==
[2018-06-13] MEDS ORDERED: 0.9 % Sodium Chloride 1,000 ML IVC ONE (01:32)
[2018-06-13] MEDS ORDERED: *HR* FentaNYL (PF) 100 MCG/2 ML VIAL IVP ONE (01:33)
[2018-06-13] MEDS ORDERED: Isovue-370 500 ML INFUS..BTL IV ONE (01:33)
[2018-06-13] MEDS ORDERED: Acetaminophen 325 MG RECTAL SUPP RC ONE ×2 (01:40→01:55)
[2018-06-13 01:47] LABS: Basophils % 0.1 %; Eosinophils % 0.3 %; Hemoglobin 7.3 g/dL (11.5-15.4); Immature Granulocytes % 0.3 % (0-4); Lymphocytes % 10.7 %; Mean Corpuscular HGB Conc 31.7 g/dL (31.6-35.5); Mean Corpuscular Hemoglobin 31.3 pg (28.0-33.3); Mean Corpuscular Volume 98.7 fL (83.0-100.0); Mean Platelet Volume 10.7 fL (9.4-12.4); Monocytes % 10.4 %; Neutrophils # 7.1 K/mcL (1.6-8.9); Platelet Count 179 K/mcL (140-400); Red Blood Count 2.33 M/mcL (3.82-4.97); Red Cell Distribution Width 13.2 % (11.5-14.5); Segmented Neutrophils % 78.2 %
--- NOTE | 2018-06-13 01:48 | Emergency Department Note ---
Disposition Clinical Impression: Dislodged gastrostomy tube Abdominal pain Qualifiers: Abdominal location: unspecified location Qualified Code(s): R10.9 - Unspecified abdominal pain Fever Qualifiers: Fever type: unspecified Qualified Code(s): R50.9 - Fever, unspecified Disposition: Admitted As Inpatient Condition: Good Referrals: NONE,PCP [Primary Care Provider] - Forms: ED Satisfaction Letter, Work/School Release Time of Disposition: 04:20 Abdominal Pain HPI - General Chief Complaint: ED Abdominal Pain Stated Complaint: "pulled peg tube" Time Seen by Provider: 06/13/18 01:10 Source: patient, EMS Mode of arrival: EMS Limitations: no limitations Nursing Notes Reviewed: Yes Vital Signs Reviewed: Yes - History of Present Illness HPI Narrative: 37-year-old female presents emergency department via EMS for fever, abdominal pain and G tube dislodgment. Patient states earlier today she rolled in bed and notice that her clothes were soaked and that her G tube was out. Prior to that she was having some abdominal discomfort and states now it has improved since the tube is out. She states for past several days she is been having intermittent fevers as well. The PEG tube was placed approximately 4 months ago due to her decreased oral intake. She states now she is eating 3 times a day at the nursing facility. After 1800 she typically gets feeds through her tube. Sh e reports normal bowel movement. Denies any urinary complaints. Denies any other prior abdominal surgeries. She does not recall where she got the surgery for the heck to placement performed but it was also due to a recent traumatic brain injury. Patient reports a cough but pain and discomfort when she tries to clear her throat. She denies any shortness of breath. She does have a bedsore to her sacral area that she currently sees wound care for on a weekly basis. Pt Subjective Complaint: abdominal pain Pain Scale: 7 - Related Data Home Medications Medication Instructions Recorded Confirmed Ondansetron ODT [Zofran ODT] 4 mg SL Q6HR PRN 02/23/18 02/23/18 Polyethylene Glycol 3350 [MiraLAX] 17 gm PO DAILY 02/23/18 02/23/18 Previous Rx's Medication Instructions Recorded Acetaminophen [Tylenol 650mg SUPP] 650 mg RC Q6HR PRN #24 supp.rect 03/13/18 Bisacodyl [Dulcolax] 10 mg RC DAILY PRN #7 supp.rect 03/13/18 Erythromycin OPTH Oint 1 appl RIGHT EYE Q6HWA 5 Days #1 03/13/18 tube LORazepam Oral Conc [Ativan Oral 0.5 mg PO Q4HR PRN 7 Days #15 mls 03/13/18 Conc] OXYCODONE Oral CONC [Oxycodone 5 mg PO Q4H PRN 7 Days #15 ml 03/13/18 Oral Conc] Allergies Allergy/AdvReac Type Severity Reaction Status Date / Time aripiprazole [From Abilify] Allergy Difficulty Verified 02/23/18 07:51 Breathing aspirin Allergy Difficulty Verified 02/23/18 07:51 Breathing ibuprofen Allergy Difficulty Verified 02/23/18 07:51 Breathing latex Allergy Difficulty Verified 02/23/18 07:51 Breathing metronidazole [From Flagyl] Allergy Difficulty Verified 02/23/18 07:51 Breathing naproxen [From Aleve] Allergy Difficulty Verified 02/23/18 07:51 Breathing Sulfa (Sulfonamide AdvReac Vomiting Verified 02/23/18 07:51 Antibiotics) pea Allergy Unknown unsure Uncoded 02/23/18 07:51 All systems ED: reviewed and negative except as stated. Review of Systems: As Per HPI Constitutional: Reports: fever, weight change. Denies: chills, weakness ENT ED: Denies: congestion Cardiovascular: Denies: chest pain Respiratory: Reports: cough. Denies: dyspnea Gastrointestinal: Reports: abdominal pain. Denies: nausea, vomiting, diarrhea Genitourinary: Denies: dysuria Musculoskeletal: Reports: back pain Integumentary: Reports: lesions. Denies: rash, abrasion Neurological: Denies: headache Endocrine: Denies: fatigue Abdominal Pain PMH - Past Medical History Medical history: Reports: arthritis, asthma, COPD, GERD, hypertension, migraine, osteoporosis, seizures, thyroid disease, syncope, other Female Surgical History: Reports: orthopedic, other STONE RIGGER history: Reports: no STONE RIGGER history Psychiatric history: Reports: schizophrenia - Social History Smoking status: Unknown if ever smoked Alcohol use: Reports: none Drug use: Reports: none Physical Exam - General Limitations: other General appearance: alert, in distress (Appears uncomfortable, patient is very warm to the touch) - Head Head exam: atraumatic, normocephalic, normal inspection - Eye Eye exam: Present: normal appearance, PERRL, EOMI - ENT ENT exam: normal exam, normal oropharynx, mucous membranes moist - Neck Neck exam: Present: normal inspection, full ROM, trachea midline - Chest Chest inspection: Present: normal inspection, symmetric chest wall rise - Respiratory Respiratory exam: Present: normal lung sounds bilaterally - Cardiovascular Cardiovascular exam: Present: normal rhythm, tachycardia, normal heart sounds - Expanded Cardiovascular Exam Peripheral pulses: 2+: radial (R), radial (L) - Abdominal Exam Abdominal exam: Present: soft, tenderness (Epigastric area around the G tube site), distention, guarding, other (There is surrounding erythema and some induration around thePEG tube site, G tube is absent, patient has some ser osanguinous discharge). Absent: rebound, rigidity - Extremities Exam Extremities exam: Present: normal inspection, full ROM. Absent: tenderness, pedal edema - Back Exam Back exam: Present: tenderness, other (Sacral ulcer with erythema and skin breakdown, 1 cm diameter with pus drainage, no bone exposed or eschar) - Neurological Exam Neurological exam: Present: alert, oriented X3 - Psychiatric Psychiatric exam: Present: normal affect, normal mood - Skin Skin exam: Present: warm, dry, intact, normal color, erythema. Absent: rash, cyanosis, diaphoresis Course Course Narrative: Patient presents with G tube dislodgment that occurred earlier this evening with also complaints of intermittent fevers and abdominal pain. On arrival patient is febrile and tachycardic 111. Her abdomen is mildly distended with some gardening and significant tenderness around the peg tube site. There is concern for possible intra-abdominal infection or obstruction. She also reports a cough without any shortness of breath., will obtain CXR. Sepsis workup initiated at this time. Rectal APAP for fever. - Reevaluation(s) Reevaluation #1: Review for labs does not show a leukocytosis. Her lactate is normal 0.9. Urinalysis does not appear consistent with infection. She denies any urinary symptoms. CT scan did not show any surgical pathology she does appear diffusely constipated. I suspect most of her abdominal tenderness is due to the constipation. Her fever has improved with the rectal Tylenol. Review of her prior hospitalization and medical record shows intermittent chronic elevated temperatures. At this time she does not meet sepsis as there is no known source of infection. Her sacral wounds not appear acutely infected. No antibiotics has been initiated at this time. A Bonilla catheter was placed in the G-tube site where gastriograffin was instilled and showed appropriate placement. Patient will be admitted to medicine service for possible G-tube replacement. Impression is abdominal pain, constipation, and g tube dislodgment. Time: 03:56 - Consultations Consultation #1: Spoke with on-call hospitalist aurelio Cortes to admit for abdominal pain, fever, constipation, sacral decubitus ulcer and g-tube dislodge. No further orders at this time. Consideration for possible IR or surgery for replacement of G-tube. Type and screen ordered. Her Hgb is low at 7.3, she has been lower in the past. No reports of bleeding, no rectal bleeding with suppository. Time: 04:37 Vital Signs Temperature 102.9 F H 06/13/18 01:04 Pulse Rate 111 06/13/18 01:04 Respiratory Rate 16 06/13/18 01:04 Blood Pressure 160/104 06/13/18 01:04 O2 Sat by Pulse Oximetry 98 06/13/18 01:04 Temperature 101.4 F H 06/13/18 03:43 Pulse Rate 87 06/13/18 03:43 Respiratory Rate 18 06/13/18 03:43 Blood Pressure 126/64 06/13/18 03:43 O2 Sat by Pulse Oximetry 98 06/13/18 03:43 Oxygen Delivery Oxygen Delivery Room Air Abdominal Pain - MDM Narrative Medical decision making narrative: Patient was discussed with my attending physician who agrees with ED management and final disposition. They independently evaluated the patient. Please refer to their attestation to this encounter for additional information. This note was generated by [employer] voice recognition software and as a result grammatical or spelling errors may occur using this program. - Medical Records Medical records reviewed: Yes I reviewed the patient's medical records. - Lab Data Lab results reviewed: Yes I reviewed the patient's lab results. Result diagrams: 06/13/18 01:22 06/13/18 01:22 Lab Results 06/13/18 06/13/18 06/13/18 Range/Units 01:22 01:22 01:22 WBC 9.1 (4.3-11.1) K/mcL RBC 2.33 L (3.82-4.97) M/mcL Hgb 7.3 L (11.5-15.4) g/dL Hct 23.0 L (35.3-44.9) % MCV 98.7 (83.0-100.0) fL MCH 31.3 (28.0-33.3) pg MCHC 31.7 (31.6-35.5) g/dL RDW 13.2 (11.5-14.5) % Plt Count 179 (140-400) K/mcL MPV 10.7 (9.4-12.4) fL Immature Gran % 0.3 (0-4) % Seg Neutrophils % 78.2 % Lymphocytes % 10.7 % Monocytes % 10.4 % Eosinophils % 0.3 % Basophils % 0.1 % Neutrophils # 7.1 (1.6-8.9) K/mcL Lymphocytes # 1.0 (0.6-4.6) K/mcL Monocytes # 1.0 (0.0-1.3) K/mcL Eosinophils # 0.0 (0.0-0.6) K/mcL Basophils # 0.0 (0.0-0.2) K/mcL PT 13.5 H (9.4-12.1) Seconds INR 1.2 APTT 32.8 (26.0-36.0) Seconds Sodium 138 (136-145) mEq/L Potassium 4.7 (3.5-5.1) mEq/L Chloride 101 (98-107) mEq/L Carbon Dioxide 31 H (23-29) mEq/L BUN 46 H (6-20) mg/dL Creatinine 0.88 (0.60-1.20) mg/dL Est GFR ( Amer) > 60 (> 60) Est GFR (Non-Af Amer) > 60 (> 60) BUN/Creatinine Ratio 52 H (6-26) Glucose 114 H (70-105) mg/dL Calculated Osmolality 299 (280-300) Lactic Acid (0.5-2.2) mmol/L Calcium 9.3 (8.6-10.3) mg/dL Total Bilirubin 0.3 (0.3-1.0) mg/dL Direct Bilirubin 0.1 (0.0-0.2) mg/dL Indirect Bilirubin 0.2 (0.0-1.2) mg/dL AST 20 (13-39) Units/L ALT 20 (7-52) Units/L Alkaline Phosphatase 65 (34-104) Units/L Troponin I < 0.03 (< 0.04) ng/mL Serum Total Protein 6.6 (6.4-8.9) g/dL Albumin 3.7 (3.5-5.7) g/dL Globulin 2.9 (2.4-3.5) g/dL Albumin/Globulin Ratio 1.3 (1.1-2.2) Lipase 21 (11-82) Units/L Urine Color (Yellow) Urine Clarity (Clear) Urine pH (5.0-8.0) pH Units Ur Specific [place] (1.010-1.025) Urine Protein (Neg-Trace) mg/dL Urine Glucose (UA) (Normal) mg/dL Urine Ketones (Negative) mg/dL Urine Blood (Negative) Urine Nitrite (Negative) Urine Bilirubin (Negative) Urine Urobilinogen (Normal) mg/dL Ur Leukocyte Esterase (Negative) Urine Microscopic RBC (0-3) per hpf Urine Microscopic WBC (0-3) per hpf Ur Squamous Epith Cells (None-Few) per lpf Urine Bacteria (None-Few) per hpf Hyaline Casts (None-Few) per lpf Ur Culture Indicated? (NO) 06/13/18 06/13/18 Range/Units 01:22 01:30 WBC (4.3-11.1) K/mcL RBC (3.82-4.97) M/mcL Hgb (11.5-15.4) g/dL Hct (35.3-44.9) % MCV (83.0-100.0) fL MCH (28.0-33.3) pg MCHC (31.6-35.5) g/dL RDW (11.5-14.5) % Plt Count (140-400) K/mcL MPV (9.4-12.4) fL Immature Gran % (0-4) % Seg Neutrophils % % Lymphocytes % % Monocytes % % Eosinophils % % Basophils % % Neutrophils # (1.6-8.9) K/mcL Lymphocytes # (0.6-4.6) K/mcL Monocytes # (0.0-1.3) K/mcL Eosinophils # (0.0-0.6) K/mcL Basophils # (0.0-0.2) K/mcL PT (9.4-12.1) Seconds INR APTT (26.0-36.0) Seconds Sodium (136-145) mEq/L Potassium (3.5-5.1) mEq/L Chloride (98-107) mEq/L Carbon Dioxide (23-29) mEq/L BUN (6-20) mg/dL Creatinine (0.60-1.20) mg/dL Est GFR ( Amer) (> 60) Est GFR (Non-Af Amer) (> 60) BUN/Creatinine Ratio (6-26) Glucose (70-105) mg/dL Calculated Osmolality (280-300) Lactic Acid 0.9 (0.5-2.2) mmol/L Calcium (8.6-10.3) mg/dL Total Bilirubin (0.3-1.0) mg/dL Direct Bilirubin (0.0-0.2) mg/dL Indirect Bilirubin (0.0-1.2) mg/dL AST (13-39) Units/L ALT (7-52) Units/L Alkaline Phosphatase (34-104) Units/L Troponin I (< 0.04) ng/mL Serum Total Protein (6.4-8.9) g/dL Albumin (3.5-5.7) g/dL Globulin (2.4-3.5) g/dL Albumin/Globulin Ratio (1.1-2.2) Lipase (11-82) Units/L Urine Color Yellow (Yellow) Urine Clarity Clear (Clear) Urine pH 7.5 (5.0-8.0) pH Units Ur Specific [place] 1.007 L (1.010-1.025) Urine Protein Trace (Neg-Trace) mg/dL Urine Glucose (UA) Normal (Normal) mg/dL Urine Ketones Negative (Negative) mg/dL Urine Blood Small H (Negative) Urine Nitrite Negative (Negative) Urine Bilirubin Negative (Negative) Urine Urobilinogen Normal (Normal) mg/dL Ur Leukocyte Esterase Large H (Negative) Urine Microscopic RBC 0-3 (0-3) per hpf Urine Microscopic WBC 0-3 (0-3) per hpf Ur Squamous Epith Cells Few (None-Few) per lpf Urine Bacteria Few (None-Few) per hpf Hyaline Casts None Seen (None-Few) per lpf Ur Culture Indicated? YES A (NO) - Radiology Data Radiology results reviewed: Yes I reviewed the patient's radiology results. Abdomen/Pelvis CT 06/13/18 01:33 IMPRESSION: 1. No acute finding to account for patient's abdominal pain. Examination is limited by absence of oral contrast and paucity of intraperitoneal fat. 2. Moderate to large volume of stool in the colon. Please correlate with clinical symptoms of constipation. 3. Small amount of free fluid in the pelvis and diffuse circumferential subcutaneous edema/inflammation. Please correlate with clinical symptoms of anasarca. 4. Splenomegaly. D/ / Romeo Shelton MD / Romeo Shelton MD Interpreting Provider: Romeo Shelton MD Chest X-Ray 06/13/18 01:34 IMPRESSION: 1. Stable mild enlargement of the cardiac silhouette. No pulmonary finding to account for patient's cough. D/ / Romeo Shelton MD / Romeo Shelton MD Interpreting Provider: Romeo Shelton MD - EKG Data EKG attestation: Yes I reviewed and interpreted this EKG. EKG results narrative: EKG performed 0202 sinus tachycardia 104 beats fermented, normal axis, good R wave progression, no ST elevation or depression, intervals appear within normal limits. Compared to prior EKG performed 02/22/2018 which showed baseline artifact without any significant changes. No acute ischemic changes. Attestation Statement - Attestation Attestation: I, Sebastian Hardy, examined this patient and my medical decision-making was reviewed with the GEOSPATIAL INTELLIGENCE ANALYST/PA/Advanced Practice Nurse/Resident Physician. I agree with the documented findings, disposition and treatment plan as described except to the extent set forth below. 37-year-old female presents emergency Department with concerns of abdominal pain and dislodged PEG tube. Patient states it became accidentally dislodged while rolling around in bed. Patient complains of epigastric pain during the initial evaluation. She is tachycardic and has a temperature of 102.9. Patient denies cough, vomiting, diarrhea. No recent trauma. Patient denies rash. Her main concern is her upper abdomen and the dislodged G-tube. Upon further review of her chart she has a history of persistent elevated temperatures. She was given Tylenol emergency department. CT of the abdomen and pelvis did not show acute surgical pathology however she is diffusely constipated. We put a Bonilla in the G-tube track to keep it open. Placement was confirmed with x-ray and Gastrografin study. Patient will be admitted to hospitalist for further care and evaluation of her elevated temperature and replacement of her G-tube.
[2018-06-13 01:51] LABS: Bilirubin,Urine Negative (Negative); Blood,Urine Small (Negative); Clarity,Urine Clear (Clear); Color,Urine Yellow (Yellow); Glucose,Urine (UA) Normal (Normal); Ketones,Urine Negative (Negative); Leukocyte Esterase,Urine Large (Negative); Nitrite,Urine Negative (Negative); PH,Urine 7.5 pH Units (5.0-8.0); Protein,Urine Trace mg/dL (Neg-Trace); Specific Gravity,Urine 1.007 (1.010-1.025); Urobilinogen,Urine Normal (Normal)
[2018-06-13 01:52] LABS: Hyaline Casts,Urine None Seen per lpf (None-Few); RBC,Urine 0-3 per hpf (0-3)
[2018-06-13 01:54] LABS: INR 1.2; Prothrombin Time 13.5 Seconds (9.4-12.1)
[2018-06-13] MEDS ORDERED: Acetaminophen 650 MG RECTAL SUPP RC ONE (01:55)
[2018-06-13 01:57] LABS: Activated Partial Thrombo Time 32.8 Seconds (26.0-36.0)
[2018-06-13 01:58] LABS: Alanine Aminotransferase 20 Units/L (7-52); Albumin 3.7 g/dL (3.5-5.7); Albumin/Globulin Ratio 1.3 (1.1-2.2); Alkaline Phosphatase 65 Units/L (34-104); Aspartate Amino Transferase 20 Units/L (13-39); BUN/Creatinine Ratio 52 (6-26); Bilirubin,Direct 0.1 mg/dL (0.0-0.2); Bilirubin,Indirect 0.2 mg/dL (0.0-1.2); Bilirubin,Total 0.3 mg/dL (0.3-1.0); Blood Urea Nitrogen 46 mg/dL (6-20); Calcium 9.3 mg/dL (8.6-10.3); Carbon Dioxide 31 mEq/L (23-29); Chloride 101 mEq/L (98-107); Globulin 2.9 g/dL (2.4-3.5); Glucose 114 mg/dL (70-105); Lipase 21 Units/L (11-82); Osmolality,Calculated 299 (280-300); Potassium 4.7 mEq/L (3.5-5.1); Sodium 138 mEq/L (136-145); Total Protein 6.6 g/dL (6.4-8.9); Troponin I < 0.03 ng/mL (< 0.04); eGFR For Non-African Americans > 60 (> 60)
[2018-06-13 02:04] LABS: Bacteria,Urine Few per hpf (None-Few); Squamous Epithelial Cell,Urine Few per lpf (None-Few); WBC,Urine 0-3 per hpf (0-3)
--- NOTE | 2018-06-13 05:18 | Internal Med History&Physical ---
Addendum entered and electronically signed by Alin Chan MD 06/13/18 07:08: I saw and evaluated the patient. I reviewed the residents note, performed my own physical examination and agree with findings and plan as documented in the residents note. Patient seen and examined on 06/13/18. Patient presented to ER with dislodged G-tube. Apparently came out while patient was moving in bed. Had abdominal pain, but now improved since tube came out. Will consult surgery for possible replacement, wound care management for small chronic sacral ulcer. Patient also had elevated temperatures which have since resolved after tylenol. Continue to monitor, follow up results of blood and urine cultures. Patient's hemoglobin also low, will type and screen, trend hemoglobins and transfuse if less than 7. No obvious source of bleeding, will obtain occult blood. No noticeable bleeding at G-tube site. Original Note: Date of Encounter: 06/13/18 Time of Encounter: 05:13 Internal Medicine - H&P: HPI Chief complaint: Displaced G-tube Admitted From: Emergency Dept History of present illness: Ms. Mendoza is a 37 year old female presenting with G-tube dislodgment and fever. Patient states that her G-tube has been causing her intense abdominal pain for approximately 2 weeks with associated fevers >100F, nausea, vomiting, and headache. Pain was located focally where G-tube was located, rated 10/10, constant, worsened with movement, alleviated by laying still. She denies chest pain, palpitations, SOB, cough, changes in stooling or urination. Patient received G-tube to receive her PM feeds because she has a history of aspiration following TBI. Today at ED she is febrile and her hemoglobin is 7. Past Med Surg Social Fam HX - Past Medical History Medical history: arthritis, asthma, COPD, GERD, hypertension, migraine, o steoporosis, seizures, thyroid disease, syncope, other Additional medical history: [place] Psychiatric history: schizophrenia - Past Surgical History Surgical History: orthopedic, other, sinus surgery, other Additional surgical history: KNEE SURGERY , g tube placement - Social History Smoking Status: Unknown if ever smoked Smokeless Tobacco Status: No Alcohol use: none Drug use: none - Family History Father Living Status: Mother Family Member Ethnicity: Non- Living Status: Still Living Hx Family Respiratory Disorders: No Hx Family Cancer: No Mother Daughter Family Member Ethnicity: Non- Internal Medicine - H&P: Meds RX: Ondansetron ODT [Zofran ODT] 4 mg SL Q6HR PRN 02/23/18 [History] RX: Polyethylene Glycol 3350 [MiraLAX] 17 gm PO DAILY 02/23/18 [History] Bisacodyl [Dulcolax] 10 mg RC DAILY PRN #7 supp.rect 03/13/18 [Rx] LORazepam Oral Conc [Ativan Oral Conc] 0.5 mg PO Q4HR PRN 7 Days #15 mls [Rx] RX: Acetaminophen [Tylenol 650mg SUPP] 650 mg RC Q6HR PRN #24 supp.rect 03/13/18 [Rx] RX: Erythromycin OPTH Oint 1 appl RIGHT EYE Q6HWA 5 Days #1 tube 03/13/18 [Rx] RX: OXYCODONE Oral CONC [Oxycodone Oral Conc] 5 mg PO Q4H PRN 7 Days #15 ml 03/13/18 [Rx] Allergy/AdvReac Type Severity Reaction Status Date / Time aripiprazole [From Abilify] Allergy Difficulty Verified 02/23/18 07:51 Breathing aspirin Allergy Difficulty Verified 02/23/18 07:51 Breathing ibuprofen Allergy Difficulty Verified 02/23/18 07:51 Breathing latex Allergy Difficulty Verified 02/23/18 07:51 Breathing metronidazole [From Flagyl] Allergy Difficulty Verified 02/23/18 07:51 Breathing naproxen [From Aleve] Allergy Difficulty Verified 02/23/18 07:51 Breathing Sulfa (Sulfonamide AdvReac Vomiting Verified 02/23/18 07:51 Antibiotics) pea Allergy Unknown unsure Uncoded 02/23/18 07:51 All Systems PM: A 10-system review of systems was performed and is negative for pertinent findings except as documented above in the HPI. - Constitutional Constitutional: chills, fatigue, fever(s), malaise, weakness - Cardiovascular Cardiovascular ROS IM: no chest pain, no palpitations - Respiratory Respiratory: no cough, no dyspnea - Gastrointestinal Gastrointestinal: no abdominal pain - Genitourinary Genitourinary: no flank pain - Neurological Neurological ROS: no focal weakness - Constitutional Vitals: Temp Pulse Resp BP Pulse Ox 101.4 F H 87 18 126/64 98 06/13/18 03:43 11/28/18 03:43 06/13/18 03:43 06/13/18 03:43 06/13/18 03:43 General appearance: Present: A&O X 3, no acute distress, answers questions appropriately Exam: . - Head Head exam: Present: atraumatic, normal inspection - Eye Eye exam: Present: EOMI, normal appearance. Absent: conjuntiva pink - Neck Neck exam general surgery: Present: supple, trachea midline - Respiratory Respiratory exam: Present: CTAB - Cardiovascular Cardiovascular exam: Present: RRR, +S1, +S2 - GI/Abdominal GI/Abdominal exam: Present: normal bowel sounds, soft, tenderness Additional comments: mild tenderness around G-tube site. Did not remove bandage to examine to reduce risk of infection. - Extremities Exam Extremities exam: Present: normal capillary refill. Absent: mottling, tenderness - Back Exam Back exam: Present: vertebral tenderness (from fall that occured recently) - Neurological Exam Neurological exam: Present: oriented X3, no focal deficits - Psychiatric Psychiatric exam: Present: normal affect - Skin Skin exam: Present: dry, intact, normal color, warm Internal Med - H&P Results - Labs CBC & Chem 7: 06/13/18 01:22 06/13/18 01:22 Labs: Short CBC 06/13/18 Range/Units 01:22 WBC 9.1 (4.3-11.1) K/mcL Hgb 7.3 L (11.5-15.4) g/dL Hct 23.0 L (35.3-44.9) % Plt Count 179 (140-400) K/mcL Neutrophils # 7.1 (1.6-8.9) K/mcL BMP 06/13/18 01:22 Sodium 138 Potassium 4.7 Chloride 101 Carbon Dioxide 31 H BUN 46 H Creatinine 0.88 Glucose 114 H Calcium 9.3 Cardiac Enzymes 06/13/18 Range/Units 01:22 Troponin I < 0.03 (< 0.04) ng/mL Liver Function 06/13/18 Range/Units 01:22 Total Bilirubin 0.3 (0.3-1.0) mg/dL Direct Bilirubin 0.1 (0.0-0.2) mg/dL AST 20 (13-39) Units/L ALT 20 (7-52) Units/L Alkaline Phosphatase 65 (34-104) Units/L Albumin 3.7 (3.5-5.7) g/dL Urine 06/13/18 Range/Units 01:30 Urine Color Yellow (Yellow) Urine Clarity Clear (Clear) Urine pH 7.5 (5.0-8.0) pH Units Ur Specific [place] 1.007 L (1.010-1.025) Urine Protein Trace (Neg-Trace) mg/dL Urine Glucose (UA) Normal (Normal) mg/dL - Impressions ITS Impressions Abdomen/Pelvis CT 06/13/18 01:33 IMPRESSION: 1. No acute finding to account for patient's abdominal pain. Examination is limited by absence of oral contrast and paucity of intraperitoneal fat. 2. Track in the anterior abdominal wall, presumably from a gastrostomy catheter. 3. Moderate to large volume of stool in the colon. Please correlate with clinical symptoms of constipation. 4. Small amount of free fluid in the pelvis and diffuse circumferential subcutaneous edema/inflammation. Please correlate with clinical symptoms of anasarca. 5. Splenomegaly. D/ / Romeo Shelton MD / Romeo Shelton MD Interpreting Provider: Romeo Shelton MD Chest X-Ray 06/13/18 01:34 IMPRESSION: 1. Stable mild enlargement of the cardiac silhouette. No pulmonary finding to account for patient's cough. D/ / Romeo Shelton MD / Romeo Shelton MD Interpreting Provider: Romeo Shelton MD X-Ray 06/13/18 04:04 IMPRESSION: 1. Injected catheter is intraluminal with tip in the gastric lumen. No evidence of extraluminal contrast. D/ / Romeo Shelton MD / Romeo Shelton MD Interpreting Provider: Romeo Shelton MD - Assessment and plan (1) Dislodged gastrostomy tube Current Visit: Yes Status: Acute Assessment and plan: Surgery consulted for G tube placement - Zoffran PRN for nausea - Patient has been constipated - miralax ordered (2) Anemia Current Visit: Yes Status: Acute Assessment and plan: Patient's Hgb today is 7.3. Based on previous visits patient appears to have chronic anemia with her Hgb levels kate 6-9. - Will continue monitoring CBC this AM and consider transfusion if Hgb<7 - FOBT ordered today Qualifiers: Anemia type: unspecified type Qualified Code(s): D64.9 - Anemia, unspecified (3) Persistent fever Current Visit: No Status: Acute Assessment and plan: Patient was febrile at ED initially presenting with fever of 102.4 and now 101. Patient reports she has been febrile > 100F for the past 2 weeks starting when her G-tube site started hurting. Her urinalysis does indicate she has a UTI. Cultures pending. No elevated WBC at this time. - Follow up cultures - Follow up CBC - Continue monitoring temperature - Time Spent With Patient Total time spent is greater than 50% in coordination of care (as documented) at patient's floor/unit and/or counseling patient:
[2018-06-13] MEDS ORDERED: Ondansetron 4 MG/2 ML VIAL IM PRN (05:52)
[2018-06-13] MEDS ORDERED: Bisacodyl 10 MG RECTAL SUPPOSITORY RC PRN (05:58)
[2018-06-13 06:30] LABS: Hematocrit 21.5 % (35.3-44.9); Mean Corpuscular HGB Conc 32.6 g/dL (31.6-35.5); Mean Corpuscular Hemoglobin 31.5 pg (28.0-33.3); Mean Corpuscular Volume 96.8 fL (83.0-100.0); Mean Platelet Volume 10.9 fL (9.4-12.4); Platelet Count 158 K/mcL (140-400); Red Blood Count 2.22 M/mcL (3.82-4.97); Red Cell Distribution Width 13.3 % (11.5-14.5)
[2018-06-13] MEDS ORDERED: cefTRIAXone 1,000 MG in Water for inj. (sterile) 20 ML 10 ML IVP SCH (09:00)
--- NOTE | 2018-06-13 11:16 | Internal Med Progress Note ---
Hospitalist Progress Note - Encounter Date of Encounter: 06/13/18 Time of Encounter: 11:09 - Subjective Interval History: Ms. Mendoza is a 37 year old female with known past medical history of COPD, GERD, hypertension, osteoporosis, seizure, hypothyroidism, schizophrenia and severe weight loss due to dysphagia who is on tube feedings trough PEG tube presented to ER with PEG-tube dislodgment and fever. she did have abdominal pain was located focally where G-tube was located, rated 10/10, constant, worsened with movement, alleviated by laying still. Patient had PEG-tube feeds due to severe weight loss, dysphagia and history of aspiration following TBI. Pt is alert, awake and O x 3. Her abdominal pain is tolerable. She still has moderate abdominal discomfort and purulent discharge noticed through PEG tube area. Her T max -102.9 - Exam Vitals: Temp Pulse Resp BP Pulse Ox 98.8 F 77 18 122/74 97 06/13/18 10:51 06/13/18 10:51 06/13/18 10:51 06/13/18 10:51 06/13/18 10:51 Exam: Gen: Alert, awake, Oriented to time,place and person Chest: Diminished breath sounds B/L, No wheezing, No crackles, No rales Heart: S1S2+ RRR No murmurs Abd: Soft, moderate tenderness in epigastric and PEG tube area, BS +, No organomegaly.. Purulent discharge noticed through PEB tube ostomy. Erythema noticed Ext: No edema, pulses are palpable, No calf tenderness Neuro : Benign findings Skin: No rash. - Assessment and Plan (1) Systemic inflammatory response syndrome Current Visit: No Status: Acute Assessment and Plan: Does meet SIRS criteria with Fever T max 102 and source of inf as abd wall credulities IV hydration empirical abx f/u on blood cx (2) Abdominal wall cellulitis Current Visit: Yes Status: Acute Assessment and Plan: Started on empirical abx Invanz will f/u on blood cx Reviewed CT of abd - no abscess noticed (3) Dislodged gastrostomy tube Current Visit: Yes Status: Acute Assessment and Plan: Waiting for surgery eval Holding tube feedings now (4) UTI (urinary tract infection) Current Visit: No Status: Acute Assessment and Plan: UA - abnormal on abx Inavanz will f/u on urine cx (5) Constipation Current Visit: No Status: Resolved Assessment and Plan: Severe constipation noticed may need bowel prep and further work up for anemia too GI consulted (6) Anemia Current Visit: Yes Status: Acute Assessment and Plan: Patient's Hgb today is 7.0. Chronic anemia mostly due to nutritional deficiency will check stool hemeoccult Will check [place]one studies, B12 and Folic acid cont close monitoring No need of transfusions now - Time Spent with Patient Total time spent is greater than 50% in coordination of care (as documented) at patient's floor/unit and/or counseling patient: Internal Medicine: Result - Labs CBC & Chem 7: 06/13/18 06:18 06/13/18 01:22 Labs: Short CBC 06/13/18 06/13/18 Range/Units 01:22 06:18 WBC 9.1 8.6 (4.3-11.1) K/mcL Hgb 7.3 L 7.0 L (11.5-15.4) g/dL Hct 23.0 L 21.5 L (35.3-44.9) % Plt Count 179 158 (140-400) K/mcL Neutrophils # 7.1 (1.6-8.9) K/mcL BMP 06/13/18 01:22 Sodium 138 Potassium 4.7 Chloride 101 Carbon Dioxide 31 H BUN 46 H Creatinine 0.88 Glucose 114 H Calcium 9.3 Cardiac Enzymes 06/13/18 Range/Units 01:22 Troponin I < 0.03 (< 0.04) ng/mL Liver Function 06/13/18 Range/Units 01:22 Total Bilirubin 0.3 (0.3-1.0) mg/dL Direct Bilirubin 0.1 (0.0-0.2) mg/dL AST 20 (13-39) Units/L ALT 20 (7-52) Units/L Alkaline Phosphatase 65 (34-104) Units/L Albumin 3.7 (3.5-5.7) g/dL Urine 06/13/18 Range/Units 01:30 Urine Color Yellow (Yellow) Urine Clarity Clear (Clear) Urine pH 7.5 (5.0-8.0) pH Units Ur Specific [place] 1.007 L (1.010-1.025) Urine Protein Trace (Neg-Trace) mg/dL Urine Glucose (UA) Normal (Normal) mg/dL - ABG Interpretation ABG results: PT/INR, D-dimer PT 13.5 Seconds (9.4-12.1) H 06/13/18 01:22 - Impressions Impressions Abdomen/Pelvis CT 06/13/18 01:33 IMPRESSION: 1. No acute finding to account for patient's abdominal pain. Examination is limited by absence of oral contrast and paucity of intraperitoneal fat. 2. Track in the anterior abdominal wall, presumably from a gastrostomy catheter. 3. [id number] volume of stool in the colon. Please correlate with clinical symptoms of constipation. 4. Small amount of free fluid in the pelvis and diffuse circumferential subcutaneous edema/inflammation. Please correlate with clinical symptoms of anasarca. 5. Splenomegaly. D/ / 06/13/2018 07:22:57 Romeo Sehlton MD / mat Interpreting Provider: Romeo Shelton MD Chest X-Ray 06/13/18 01:34 IMPRESSION: 1. Stable mild enlargement of the cardiac silhouette. No pulmonary finding to account for patient's cough. D/ / Romeo Shelton MD / Romeo Shelton MD Interpreting Provider: Romeo Shelton MD X-Ray 06/13/18 04:04 IMPRESSION: 1. Injected catheter is intraluminal with tip in the gastric lumen. No evidence of extraluminal contrast. D/ / Romeo Shelton MD / Romeo Shelton MD Interpreting Provider: Romeo Shelton MD Consult Discharge Plan - Plan Referrals: NONE,PCP [Primary Care Provider] - (4) UTI (urinary tract infection) Qualifiers: Urinary tract infection type: site unspecified Hematuria presence: without hematuria Qualified Code(s): N39.0 - Urinary tract infection, site not specified (5) Constipation Qualifiers: Constipation type: drug induced constipation Qualified Code(s): K59.03 - Drug induced constipation (6) Anemia Qualifiers: Anemia type: unspecified type Qualified Code(s): D64.9 - Anemia, unspecified
[2018-06-13] MEDS: *HR* OxyCODONE/APAP 5/325 TABLET PO PRN ×2 (12:03→20:07)
[2018-06-13] MEDS: Ertapenem 1,000 MG in 0.9 % Sodium Chloride Mini Bag 100 ML IVPB SCH (12:03)
[2018-06-13] MEDS: D5% in 0.45% NACL 1,000 ML IVC SCH ×2 (13:50→23:40)
[2018-06-13] MEDS ORDERED: Metoclopramide 10 MG/10 ML UD.LIQ GTUBE PRN (14:12)
[2018-06-13] MEDS ORDERED: Hyoscyamine SL 0.125 MG TAB.SUBL SL PRN (14:12)
--- NOTE | 2018-06-13 14:13 | Electrocardiograph Report ---
[address] [place], [place] [address] Test Date: 2018-06-13 Pat Name: Shari Mendoza Department: [id number] Room: 3B21 Gender: F [employer]: : 1980 Requested By: Sebastian Hardy Order Number: [id number] Reading MD: Aneta Patiño Measurements Intervals [place] Rate: 104 P: 42 CT: 123 QRS: 51 QRSD: 81 T: 70 QT: 341 QTc: 449 Interpretive Statements Sinus tachycardia Electronically Signed On 06-13-2018 14:11:47 EST by Aneta Patiño
--- NOTE | 2018-06-13 15:04 | General Surgery Consult Note ---
<Lidia Gonzalez - Last Filed: 06/13/18 15:45> Date of Encounter: 06/13/18 Time of Encounter: 14:59 Assessment and Plan (1) Constipation Current Visit: Yes Status: Chronic Likely exacerbated by medications. Recommend daily miralax until bowel movements that are mashed potatoes consistency, then decrease to ever other day. Mag citrate for unresolved constipation Qualifiers: Constipation type: drug induced constipation Qualified Code(s): K59.03 - Drug induced constipation (2) Pain around PEG tube site Current Visit: Yes Status: Acute Pt with PEG tube placed 02/2018 d/t weight loss. She is now eating much better and her weight has increased form 88lbs to 114 lbs. She reported pain at her peg tube site for a couple days and then as she "rolled over the PEG tube came out." PT refuses PEG replacement and would like to continue diet. She had a catheter placed to keep the PEG site open and this area is draining bilious output. No s/s of infection noted. Plan: Remove catheter from abdomen. Cover with a dry dressing daily until drainage has stopped. Regular diet (per patternmaker reccs/managment No acute surgical intervention indicated. Surgery will sign off at this time. Thank you for allowing us to participate in Ms Mendoza's care. Qualifiers: Encounter type: initial encounter Qualified Code(s): T85.848A - Pain due to other internal prosthetic devices, implants and grafts, initial encounter History of Present Illness Consult date: 06/13/18 (Dr. Adarsh Gillis) Reason for consult: other Requesting physician: Sam Palumbo History of present illness: Surgery was consulted for recommendations regarding PEG tube fell out Pt's past medical, social, and surgical histories were reviewed with patient and per EMR and updated where indicated Shari presented on 06/13/[address] [facility] for abdominal pain and "peg tube fell out when rolling over." She reports pain at the site. She denies nausea, vomiting or diarrhea. She endorses and appetitie and states she has gained weight and is eating well now. She refuses the peg tube to be replaced. Past Med Surg Social Fam HX - Past Medical History Medical history: arthritis, asthma, COPD, GERD, hypertension, migraine, osteoporosis, seizures, thyroid disease, syncope, other Additional medical history: PARKINSONS Psychiatric history: schizophrenia - Past Surgical History Surgical History: orthopedic, other, sinus surgery, other Additional surgical history: KNEE SURGERY , g tube placement - Social History Smoking Status: Unknown if ever smoked Smokeless Tobacco Status: No Alcohol use: none Drug use: none - Family History Father Living Status: Mother Family Member Ethnicity: Non- Living Status: Still Living Hx Family Respiratory Disorders: No Hx Family Cancer: No Mother Daughter Family Member Ethnicity: Non- Medications and Allergies RX: Polyethylene Glycol 3350 [MiraLAX] 17 gm GTUBE DAILY 02/23/18 [History] Bisacodyl [Dulcolax] 10 mg RC DAILY PRN #7 supp.rect 03/13/18 [Rx] LORazepam Oral Conc [Ativan Oral Conc] 0.5 mg PO Q4HR PRN 7 Days #15 mls 03/13/18 [Rx] RX: Acetaminophen [Tylenol 650mg SUPP] 650 mg RC Q6HR PRN #24 supp.rect 03/13/18 [Rx] RX: OXYCODONE Oral CONC [Oxycodone Oral Conc] 5 mg PO Q4H PRN 7 Days #15 ml 03/13/18 [Rx] Escitalopram [Lexapro] 20 mg GTUBE DAILY 06/13/18 [History] Gabapentin [Neurontin] 100 mg GTUBE TID 06/13/18 [History] Hyoscyamine SL [Levsin SL] 0.125 mg SL Q2H PRN 06/13/18 [History] Ipratropium/Albuterol Neb [Duoneb] 3 ml IH Q4HR PRN 06/13/18 [History] Omeprazole [PriLOSEC] 20 mg GTUBE DAILY 06/13/18 [History] Quetiapine Fumarate [Seroquel] 50 mg GTUBE BID 06/13/18 [History] RX: Metoclopramide HCl 5 mg GTUBE Q4H PRN 06/13/18 [History] Allergy/AdvReac Type Severity Reaction Status Date / Time aripiprazole [From Abilify] Allergy Difficulty Verified 02/23/18 07:51 Breathing aspirin Allergy Difficulty Verified 02/23/18 07:51 Breathing ibuprofen Allergy Difficulty Verified 02/23/18 07:51 Breathing latex Allergy Difficulty Verified 02/23/18 07:51 Breathing metronidazole [From Flagyl] Allergy Difficulty Verified 02/23/18 07:51 Breathing naproxen [From Aleve] Allergy Difficulty Verified 02/23/18 07:51 Breathing Sulfa (Sulfonamide AdvReac Vomiting Verified 02/23/18 07:51 Antibiotics) pea Allergy Unknown unsure Uncoded 02/23/18 07:51 Review of Systems All systems PM: The remainder of the systems were reviewed and are negative - Constitutional fever(s), weight gain, no headache(s) - Cardiovascular no chest pain - Respiratory no cough, no dyspnea on exertion - Gastrointestinal as per HPI - Musculoskeletal muscle weakness - Neurological no dizziness, no headache(s) - Psychiatric no change in appetite General Surgery Exam Initial Vital Signs Temp Pulse Resp BP Pulse Ox 102.9 F H 111 16 160/104 98 06/13/18 01:04 06/13/18 01:04 06/13/18 01:04 06/13/18 01:04 06/13/18 01:04 Exam Initial Vital Signs Temp Pulse Resp BP Pulse Ox 102.9 F H 111 16 160/104 98 06/13/18 01:04 06/13/18 01:04 06/13/18 01:04 06/13/18 01:04 06/13/18 01:04 Results - Labs 06/13/18 06:18 06/13/18 01:22 Abnormal lab results RBC 2.22 M/mcL (3.82-4.97) L 06/13/18 06:18 Hgb 7.0 g/dL (11.5-15.4) L 06/13/18 06:18 Hct 21.5 % (35.3-44.9) L 06/13/18 06:18 PT 13.5 Seconds (9.4-12.1) H 06/13/18 01:22 Carbon Dioxide 31 mEq/L (23-29) H 06/13/18 01:22 BUN 46 mg/dL (6-20) H 06/13/18 01:22 BUN/Creatinine Ratio 52 (6-26) H 06/13/18 01:22 Glucose 114 mg/dL (70-105) H 06/13/18 01:22 Ur Specific Bath 1.007 (1.010-1.025) L 06/13/18 01:30 Urine Blood Small (Negative) H 06/13/18 01:30 Ur Leukocyte Esterase Large (Negative) H 06/13/18 01:30 Ur Culture Indicated? YES (NO) A 06/13/18 01:30 Diabetes panel 06/13/18 Range/Units 01:22 Sodium 138 (136-145) mEq/L Potassium 4.7 (3.5-5.1) mEq/L Chloride 101 (98-107) mEq/L Carbon Dioxide 31 H (23-29) mEq/L BUN 46 H (6-20) mg/dL Creatinine 0.88 (0.60-1.20) mg/dL Glucose 114 H (70-105) mg/dL Calcium 9.3 (8.6-10.3) mg/dL AST 20 (13-39) Units/L ALT 20 (7-52) Units/L Alkaline Phosphatase 65 (34-104) Units/L Albumin 3.7 (3.5-5.7) g/dL Calcium panel 06/13/18 Range/Units 01:22 Calcium 9.3 (8.6-10.3) mg/dL Albumin 3.7 (3.5-5.7) g/dL Pituitary panel 06/13/18 Range/Units 01:22 Sodium 138 (136-145) mEq/L Potassium 4.7 (3.5-5.1) mEq/L Chloride 101 (98-107) mEq/L Carbon Dioxide 31 H (23-29) mEq/L BUN 46 H (6-20) mg/dL Creatinine 0.88 (0.60-1.20) mg/dL Glucose 114 H (70-105) mg/dL Calcium 9.3 (8.6-10.3) mg/dL Adrenal panel 06/13/18 Range/Units 01:22 Sodium 138 (136-145) mEq/L Potassium 4.7 (3.5-5.1) mEq/L Chloride 101 (98-107) mEq/L Carbon Dioxide 31 H (23-29) mEq/L BUN 46 H (6-20) mg/dL Creatinine 0.88 (0.60-1.20) mg/dL Glucose 114 H (70-105) mg/dL Calcium 9.3 (8.6-10.3) mg/dL Total Bilirubin 0.3 (0.3-1.0) mg/dL AST 20 (13-39) Units/L ALT 20 (7-52) Units/L Alkaline Phosphatase 65 (34-104) Units/L Albumin 3.7 (3.5-5.7) g/dL All other labs normal. Consult Discharge Plan - Plan Referrals: NONE,PCP [Primary Care Provider] - <Adarsh Gillis - Last Filed: 06/14/18 07:08> Date of Encounter: 06/13/18 Assessment and Plan (1) Constipation Current Visit: Yes Status: Chronic Qualifiers: Constipation type: drug induced constipation Qualified Code(s): K59.03 - Drug induced constipation (2) Pain around PEG tube site Current Visit: Yes Status: Acute Qualifiers: Encounter type: initial encounter Qualified Code(s): T85.848A - Pain due to other internal prosthetic devices, implants and grafts, initial encounter Review of Systems All systems PM: The remainder of the systems were reviewed and are negative General Surgery Exam Initial Vital Signs Temp Pulse Resp BP Pulse Ox 102.9 F H 111 16 160/104 98 06/13/18 01:04 06/13/18 01:04 06/13/18 01:04 06/13/18 01:04 06/13/18 01:04 Exam Initial Vital Signs Temp Pulse Resp BP Pulse Ox 102.9 F H 111 16 160/104 98 06/13/18 01:04 06/13/18 01:04 06/13/18 01:04 06/13/18 01:04 06/13/18 01:04 Results - Labs 06/14/18 03:27 06/14/18 03:27 Abnormal lab results RBC 2.61 M/mcL (3.82-4.97) L 06/14/18 03:27 Hgb 8.1 g/dL (11.5-15.4) L 06/14/18 03:27 Hct 24.9 % (35.3-44.9) L 06/14/18 03:27 PT 13.5 Seconds (9.4-12.1) H 06/13/18 01:22 Carbon Dioxide 30 mEq/L (23-29) H 06/14/18 03:27 BUN 36 mg/dL (6-20) H 06/14/18 03:27 BUN/Creatinine Ratio 43 (6-26) H 06/14/18 03:27 Calculated Osmolality 301 (280-300) H 06/14/18 03:27 Phosphorus 4.7 mg/dL (2.7-4.5) H 06/14/18 03:27 Prealbumin 15.2 mg/dL (17.0-34.0) L 06/14/18 03:27 Ur Specific Bath 1.007 (1.010-1.025) L 06/13/18 01:30 Urine Blood Small (Negative) H 06/13/18 01:30 Ur Leukocyte Esterase Large (Negative) H 06/13/18 01:30 Ur Culture Indicated? YES (NO) A 06/13/18 01:30 Diabetes panel 06/14/18 Range/Units 03:27 Sodium 141 (136-145) mEq/L Potassium 4.2 (3.5-5.1) mEq/L Chloride 103 (98-107) mEq/L Carbon Dioxide 30 H (23-29) mEq/L BUN 36 H (6-20) mg/dL Creatinine 0.84 (0.60-1.20) mg/dL Glucose 102 (70-105) mg/dL Calcium 9.8 (8.6-10.3) mg/dL Calcium panel 06/14/18 06/14/18 Range/Units 03:27 03:27 Calcium 9.8 (8.6-10.3) mg/dL Phosphorus 4.7 H (2.7-4.5) mg/dL Pituitary panel 06/14/18 Range/Units 03:27 Sodium 141 (136-145) mEq/L Potassium 4.2 (3.5-5.1) mEq/L Chloride 103 (98-107) mEq/L Carbon Dioxide 30 H (23-29) mEq/L BUN 36 H (6-20) mg/dL Creatinine 0.84 (0.60-1.20) mg/dL Glucose 102 (70-105) mg/dL Calcium 9.8 (8.6-10.3) mg/dL Adrenal panel 06/14/18 Range/Units 03:27 Sodium 141 (136-145) mEq/L Potassium 4.2 (3.5-5.1) mEq/L Chloride 103 (98-107) mEq/L Carbon Dioxide 30 H (23-29) mEq/L BUN 36 H (6-20) mg/dL Creatinine 0.84 (0.60-1.20) mg/dL Glucose 102 (70-105) mg/dL Calcium 9.8 (8.6-10.3) mg/dL All other labs normal. - Attending Attestation I have personally performed a face to face evaluation on this patient. I have reviewed and agree with the care plan. History and Exam by me shows: The patient is seen and evaluated. She does not wish to have PEG tube replaced. We will perform dietary trial. The gastrocutaneous fistula should close Adarsh Gillis MD FACS
[2018-06-13] MEDS: Gabapentin 100 MG CAPSULE GTUBE SCH ×2 (15:07→20:07)
[2018-06-13] MEDS ORDERED: Ipratropium/Albuterol Neb 3 ML IH PRN (16:00)
[2018-06-13] MEDS: *HR* LORazepam Oral Conc 2 MG/ML PO PRN (17:10)
[2018-06-14 04:26] LABS: Basophils % 0.5 %; Eosinophils # 0.1 K/mcL (0.0-0.6); Eosinophils % 2.5 %; Hematocrit 24.9 % (35.3-44.9); Hemoglobin 8.1 g/dL (11.5-15.4); Immature Granulocytes % 0.2 % (0-4); Lymphocytes # 1.2 K/mcL (0.6-4.6); Lymphocytes % 21.2 %; Mean Corpuscular HGB Conc 32.5 g/dL (31.6-35.5); Mean Corpuscular Volume 95.4 fL (83.0-100.0); Monocytes # 0.6 K/mcL (0.0-1.3); Monocytes % 11.3 %; Neutrophils # 3.5 K/mcL (1.6-8.9); Platelet Count 186 K/mcL (140-400); Red Blood Count 2.61 M/mcL (3.82-4.97); Red Cell Distribution Width 12.8 % (11.5-14.5); Segmented Neutrophils % 64.3 %
[2018-06-14 04:47] LABS: BUN/Creatinine Ratio 43 (6-26); Blood Urea Nitrogen 36 mg/dL (6-20); Calcium 9.8 mg/dL (8.6-10.3); Carbon Dioxide 30 mEq/L (23-29); Chloride 103 mEq/L (98-107); Glucose 102 mg/dL (70-105); Magnesium 2.3 mg/dL (1.6-2.6); Osmolality,Calculated 301 (280-300); Phosphorous 4.7 mg/dL (2.7-4.5); Potassium 4.2 mEq/L (3.5-5.1); Sodium 141 mEq/L (136-145); eGFR For Non-African Americans > 60 (> 60)
[2018-06-14] MEDS: Ertapenem 1,000 MG in 0.9 % Sodium Chloride Mini Bag 100 ML IVPB SCH (08:32)
[2018-06-14] MEDS: Gabapentin 100 MG CAPSULE GTUBE SCH ×2 (08:32→14:31)
[2018-06-14] MEDS: *HR* OxyCODONE/APAP 5/325 TABLET PO PRN ×2 (08:32→14:31)
[2018-06-14] MEDS: D5% in 0.45% NACL 1,000 ML IVC SCH (09:13)
[2018-06-14 09:31] LABS: % Iron Saturation 5 % (15-50); Iron 16 mcg/dL (50-170); Transferrin 251 mg/dL (203-362)
[2018-06-14 09:58] LABS: Vitamin B12 356 pg/mL (250-1100)
[2018-06-14 09:59] LABS: Folate > 22.3 ng/mL (3.0-16.0)
[2018-06-14 11:10] VITALS: BP 107/66
--- NOTE | 2018-06-14 11:54 | Discharge Summary ---
- NOTES TO OUTPATIENT PROVIDER Notes to Outpatient Provider: Follow with PCP in one week. Follow-up with surgeon Dr. Gillis at [facility] in few days. Continue daily dry dressing around your PEG tube ostomy Orders not resulted at time of discharge: Pending orders 06/13/18 05:20 Culture,Blood [BC] Stat Date of Encounter: 06/14/18 Time of Encounter: 11:52 - Discharge Diagnosis (1) Systemic inflammatory response syndrome Priority: Primary Status: Acute (2) Abdominal wall cellulitis Priority: Primary Status: Acute (3) Dislodged gastrostomy tube Priority: Primary Status: Acute (4) UTI (urinary tract infection) Priority: Secondary Status: Acute Qualifiers: Urinary tract infection type: site unspecified Hematuria presence: without hematuria Qualified Code(s): N39.0 - Urinary tract infection, site not specified (5) Constipation Priority: Secondary Status: Chronic Qualifiers: Constipation type: drug induced constipation Qualified Code(s): K59.03 - Drug induced constipation (6) Anemia Priority: Secondary Status: Acute Qualifiers: Anemia type: unspecified type Qualified Code(s): D64.9 - Anemia, unspecified (7) Iron deficiency anemia due to dietary causes Priority: Secondary Status: Acute Hospital course: Ms. Mendoza is a 37 year old female with known past medical history of COPD, GERD, hypertension, osteoporosis, seizure, hypothyroidism, schizophrenia and severe weight loss due to dysphagia who is on tube feedings trough PEG tube presented to ER with PEG-tube dislodgment and fever. she did have abdominal pain was located focally where G-tube was located, rated 10/10, constant, worsened with movement, alleviated by laying still. Patient was admitted in the hospital. Her PEG tube seems to be dislodged and she did have cellulites around the ostomy area. She was started on empirical antibiotic with IV Invanz. Her blood cx did not grow anything. Her Urine cx was negative. Pt was evaluated by Surgery Dr. Gillis who removed the PEG tube and recommend to continue daily dry dressing until the discharge improves. I did place her on PO abx Doxy for 7 days. Pt do not wanted to go for PEG tube placement again. She is able to tolerate PO intake well and wanted to continue taking oral feedings only. Pt was evaluated by template fitter too. She does have severe Iron def anemia due to nutritional deficiency. Recommended to take Iron supplements. - Time Spent with Patient Total time spent providing and/or coordinating discharge services: - Discharge Medications Prescriptions: OxyCODONE/APAP 5/325 [Percocet 5/325 MG] 1 each PO Q6HR PRN 5 Days #20 tablet PRN Reason: Moderate Pain Doxycycline Hyclate 100 mg PO BID #14 tablet LORazepam [Ativan] 0.5 mg PO TID PRN 5 Days #15 tablet PRN Reason: Anxiety Home Medications: Acetaminophen [Tylenol 650mg SUPP] 650 mg RC Q6HR PRN #24 supp.rect 03/13/18 [Rx] Bisacodyl [Dulcolax] 10 mg RC DAILY PRN #7 supp.rect 03/13/18 [Rx] Hyoscyamine SL [Levsin Sl] 0.125 mg SL Q2H PRN 06/13/18 [History] Ipratropium/Albuterol Neb [Duoneb] 3 ml IH Q4HR PRN 06/13/18 [History] Doxycycline Hyclate 100 mg PO BID #14 tablet 06/14/18 [Rx] Escitalopram [Lexapro] 20 mg PO DAILY #0 06/14/18 [Rx] Gabapentin [Neurontin] 100 mg PO TID #0 06/14/18 [Rx] LORazepam [Ativan] 0.5 mg PO TID PRN 5 Days #15 tablet 06/14/18 [Rx] Metoclopramide HCl 5 mg PO Q4H PRN #0 06/14/18 [Rx] Omeprazole [PriLOSEC] 20 mg PO DAILY #0 06/14/18 [Rx] OxyCODONE/APAP 5/325 [Percocet 5/325 MG] 1 each PO Q6HR PRN 5 Days #20 tablet 06/14/18 [Rx] Polyethylene Glycol 3350 [MiraLAX] 17 gm PO DAILY #0 06/14/18 [Rx] Quetiapine Fumarate [Seroquel] 50 mg PO BID #0 06/14/18 [Rx] Allergies/Adverse Reactions: Allergy/AdvReac Type Severity Reaction Status Date / Time aripiprazole [From Abilify] Allergy Difficulty Verified 02/23/18 07:51 Breathing aspirin Allergy Difficulty Verified 02/23/18 07:51 Breathing ibuprofen Allergy Difficulty Verified 02/23/18 07:51 Breathing latex Allergy Difficulty Verified 02/23/18 07:51 Breathing metronidazole [From Flagyl] Allergy Difficulty Verified 02/23/18 07:51 Breathing naproxen [From Aleve] Allergy Difficulty Verified 02/23/18 07:51 Breathing Sulfa (Sulfonamide AdvReac Vomiting Verified 02/23/18 07:51 Antibiotics) pea Allergy Unknown unsure Uncoded 02/23/18 07:51 Date of admission: 06/13/18 04:54 Primary care physician: PCP NONE Consults: 06/13/18 11:07 Consult to Nutrition [CONS] Routine Comment: Consulting Provider: NUTRITION Reason for Dietary Consult: Tube Feed Start & Manage 06/13/18 14:32 Consult to Surgery [CONS] Routine Consulting Provider: [facility] Reason for Consult: PEG tube dislodgement.. Talked to Dr. 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 mild discharge noticed through PEB tube ostomy. Improving erythema noticed Ext: No edema, pulses are palpable, No calf tenderness Neuro : Benign findings Skin: No rash. - Patient Status Disposition: Transfer SNF Condition: Good Overall status at discharge: patient is back to baseline - Discharge Instructions Follow Up With: NONE,PCP [Primary Care Provider] - Adarsh Gillis MD [Partnered Physician] - - Diet and Activity Activity: increase activity as tolerated Diet: regular diet
[2018-06-14] MEDS: *HR* LORazepam Oral Conc 2 MG/ML PO PRN (12:18)
--- NOTE | 2018-06-14 13:37 | Physician Discharge Referral ---
ExtendedCare Referral Info Transfer To: F Provider in Charge after Transfer: PCP Institutional Level of Care: Skilled - Diagnosis (1) Systemic inflammatory response syndrome Status: Acute (2) Abdominal wall cellulitis Status: Acute (3) Dislodged gastrostomy tube Status: Acute (4) UTI (urinary tract infection) Status: Acute (5) Constipation Status: Chronic (6) Anemia Status: Acute (7) Iron deficiency anemia due to dietary causes Status: Acute - Transfer Medications Prescriptions: OxyCODONE/APAP 5/325 [Percocet 5/325 MG] 1 each PO Q6HR PRN 5 Days #20 tablet PRN Reason: Moderate Pain Doxycycline Hyclate 100 mg PO BID #14 tablet Ferrous Sulfate 325 mg PO BID #60 tablet LORazepam [Ativan] 0.5 mg PO TID PRN 5 Days #15 tablet PRN Reason: Anxiety Home Medications: Acetaminophen [Tylenol 650mg SUPP] 650 mg RC Q6HR PRN #24 supp.rect 03/13/18 [Rx] Bisacodyl [Dulcolax] 10 mg RC DAILY PRN #7 supp.rect 03/13/18 [Rx] Hyoscyamine SL [Levsin Sl] 0.125 mg SL Q2H PRN 06/13/18 [History] Ipratropium/Albuterol Neb [Duoneb] 3 ml IH Q4HR PRN 06/13/18 [History] Doxycycline Hyclate 100 mg PO BID #14 tablet 06/14/18 [Rx] Escitalopram [Lexapro] 20 mg PO DAILY #0 06/14/18 [Rx] Ferrous Sulfate 325 mg PO BID #60 tablet 06/14/18 [Rx] Gabapentin [Neurontin] 100 mg PO TID #0 06/14/18 [Rx] LORazepam [Ativan] 0.5 mg PO TID PRN 5 Days #15 tablet 06/14/18 [Rx] Metoclopramide HCl 5 mg PO Q4H PRN #0 06/14/18 [Rx] Omeprazole [PriLOSEC] 20 mg PO DAILY #0 06/14/18 [Rx] OxyCODONE/APAP 5/325 [Percocet 5/325 MG] 1 each PO Q6HR PRN 5 Days #20 tablet 06/14/18 [Rx] Polyethylene Glycol 3350 [MiraLAX] 17 gm PO DAILY #0 06/14/18 [Rx] Quetiapine Fumarate [Seroquel] 50 mg PO BID #0 06/14/18 [Rx] Allergies/Adverse Reactions: Allergy/AdvReac Type Severity Reaction Status Date / Time aripiprazole [From Abilify] Allergy Difficulty Verified 02/23/18 07:51 Breathing aspirin Allergy Difficulty Verified 02/23/18 07:51 Breathing ibuprofen Allergy Difficulty Verified 02/23/18 07:51 Breathing latex Allergy Difficulty Verified 02/23/18 07:51 Breathing metronidazole [From Flagyl] Allergy Difficulty Verified 02/23/18 07:51 Breathing naproxen [From Aleve] Allergy Difficulty Verified 02/23/18 07:51 Breathing Sulfa (Sulfonamide AdvReac Vomiting Verified 02/23/18 07:51 Antibiotics) pea Allergy Unknown unsure Uncoded 02/23/18 07:51 - Respiratory Orders Smoking Cessation: Smoking cessation has been advised. For more information, call the [place] Tobacco Quit Line at 9-815-VULG-NOW. CERTIFICATION: I certify that the transfer of the above named patient to an Extended Care Facility is necessary for the continuing treatment of the diagnosis listed. The above information is true and accurate reflection of patient's current condition. Confidential - Redisclosure prohibited without a patient's written consent.
[2018-06-14] MEDS ORDERED: Bisacodyl 10 MG RECTAL SUPPOSITORY RC SCH (15:06)
== END 2018-06-14 15:43 ==
LOC: 3BNU 01:02 → EMEROOARM 01:02 → SUATTDRO 04:54 → 3BNU 05:49
PROVIDERS: ADMIT Internal Medicine; ATTEND Family Medicine

== ENCOUNTER 2019-05-27 20:00 | Inpatient (IN) ==
[2019-05-27 21:12] LABS: Basophils # 0.1 K/mcL (0.0-0.2); Basophils % 0.7 %; Eosinophils # 0.1 K/mcL (0.0-0.6); Eosinophils % 1.8 %; Hematocrit 33.9 % (35.3-44.9); Hemoglobin 11.2 g/dL (11.5-15.4); Immature Granulocytes % 0.3 % (0-4); Lymphocytes # 1.8 K/mcL (0.6-4.6); Lymphocytes % 25.6 %; Mean Corpuscular Hemoglobin 30.8 pg (28.0-33.3); Mean Corpuscular Volume 93.1 fL (83.0-100.0); Mean Platelet Volume 11.1 fL (9.4-12.4); Monocytes # 0.6 K/mcL (0.0-1.3); Monocytes % 7.6 %; Neutrophils # 4.6 K/mcL (1.6-8.9); Platelet Count 200 K/mcL (140-400); Red Blood Count 3.64 M/mcL (3.82-4.97); Red Cell Distribution Width 12.3 % (11.5-14.5); White Blood Count 7.2 K/mcL (4.3-11.1)
[2019-05-27 21:17] LABS: Bilirubin,Urine Negative (Negative); Blood,Urine Negative (Negative); Clarity,Urine Clear (Clear); Color,Urine Yellow (Yellow); Glucose,Urine (UA) Normal (Normal); Ketones,Urine Negative (Negative); Leukocyte Esterase,Urine Trace (Negative); Nitrite,Urine Negative (Negative); Protein,Urine Negative (Neg-Trace); Urobilinogen,Urine Normal (Normal)
[2019-05-27 21:19] LABS: Bacteria,Urine None Seen per hpf (None-Few); Hyaline Casts,Urine None Seen per lpf (None-Few); Squamous Epithelial Cell,Urine Moderate per lpf (None-Few)
[2019-05-27 21:26] LABS: Amphetamine Screen,Urine Negative ng/mL (Cutoff=1000); Barbiturate Screen,Urine Negative ng/mL (Cutoff=200); Benzodiazepines Screen,Urine Negative ng/mL (Cutoff=200); Cannabinoid Screen,Urine Negative ng/mL (Cutoff = 50); Cocaine Screen,Urine Negative ng/mL (Cutoff= 300); Opiate Screen,Urine Negative ng/mL (Cutoff=300); Phencyclidine Screen,Urine Negative ng/mL (Cutoff=25)
[2019-05-27 21:31] LABS: Acetaminophen < 10 mcg/mL (10-20); BUN/Creatinine Ratio 18 (6-26); Blood Urea Nitrogen 19 mg/dL (6-20); Calcium 9.3 mg/dL (8.6-10.3); Carbon Dioxide 22 mEq/L (23-29); Chloride 103 mEq/L (98-107); Ethanol < 10 mg/dL (Less than 10); Glucose 107 mg/dL (70-105); Osmolality,Calculated 283 (280-300); Potassium 4.2 mEq/L (3.5-5.1); Salicylate < 2.5 mg/dL (15.0-30.0); Sodium 135 mEq/L (136-145); eGFR For African Americans > 60 (> 60); eGFR For Non-African Americans 59 (> 60)
[2019-05-28] MEDS ORDERED: *HR* LORazepam 1 MG TABLET PO PRN (02:49)
[2019-05-28] MEDS ORDERED: Haloperidol Lactate 5 MG/ML VIAL IM PRN (02:49)
[2019-05-28] MEDS ORDERED: Mag Hydrox/Al Hydrox/Simeth 30 ML UDC PO PRN (02:49)
[2019-05-28] MEDS ORDERED: MOM Conc 10 ML UD.LIQ PO PRN (02:49)
[2019-05-28] MEDS ORDERED: *HR* LORazepam 2 MG/ML VIAL IM PRN (02:49)
[2019-05-28] MEDS: Acetaminophen 325 MG TABLET PO PRN ×2 (09:53→21:00)
[2019-05-28] MEDS: Lurasidone 20 MG TABLET PO SCH (12:00)
[2019-05-28] MEDS: hydrOXYzine pamoate 25 MG CAPSULE PO PRN (20:57)
[2019-05-28] MEDS: traZODone 50 MG TABLET PO PRN (20:58)
[2019-05-28] MEDS: clonazePAM 1 MG TABLET PO SCH (20:58)
[2019-05-29] MEDS: Acetaminophen 325 MG TABLET PO PRN ×2 (08:57→20:16)
[2019-05-29] MEDS: Lurasidone 20 MG TABLET PO SCH (08:57)
[2019-05-29] MEDS: clonazePAM 1 MG TABLET PO SCH ×3 (08:58→20:17)
[2019-05-29 12:50] LABS: Basophils % 0.5 %; Eosinophils # 0.1 K/mcL (0.0-0.6); Hematocrit 34.7 % (35.3-44.9); Hemoglobin 11.5 g/dL (11.5-15.4); Immature Granulocytes % 0.2 % (0-4); Lymphocytes # 1.6 K/mcL (0.6-4.6); Lymphocytes % 19.6 %; Mean Corpuscular HGB Conc 33.1 g/dL (31.6-35.5); Mean Corpuscular Hemoglobin 30.7 pg (28.0-33.3); Mean Corpuscular Volume 92.8 fL (83.0-100.0); Mean Platelet Volume 11.4 fL (9.4-12.4); Monocytes # 0.5 K/mcL (0.0-1.3); Monocytes % 6.6 %; Neutrophils # 5.9 K/mcL (1.6-8.9); Platelet Count 191 K/mcL (140-400); Red Blood Count 3.74 M/mcL (3.82-4.97); Red Cell Distribution Width 12.4 % (11.5-14.5); Segmented Neutrophils % 72.1 %; White Blood Count 8.2 K/mcL (4.3-11.1)
[2019-05-29] MEDS: hydrOXYzine pamoate 25 MG CAPSULE PO PRN (20:17)
[2019-05-29] MEDS: traZODone 50 MG TABLET PO PRN (20:17)
[2019-05-30] MEDS: clonazePAM 1 MG TABLET PO SCH ×3 (09:10→20:26)
[2019-05-30] MEDS: traZODone 50 MG TABLET PO PRN (20:27)
[2019-05-30] MEDS: Acetaminophen 325 MG TABLET PO PRN (20:29)
[2019-05-30] MEDS ORDERED: Lurasidone 20 MG TABLET PO SCH (21:00)
[2019-05-31] MEDS: clonazePAM 1 MG TABLET PO SCH (09:07)
[2019-05-31 10:29] VITALS: BP 134/74
== END 2019-05-31 10:33 | disposition home or self-care (01) | DRG 885 ==
LOC: 1ANU 20:00 → EMEROOARM 20:00 → 1ANU 05-28 03:03
PROVIDERS: ADMIT Psychiatry & Neurology Psychiatry; ATTEND Psychiatry & Neurology Psychiatry

== ENCOUNTER 2020-03-11 16:49 | Observation (INO) ==
[2020-03-11 17:46] LABS: Basophils # 0.1 K/mcL (0.0-0.2); Basophils % 0.6 %; Eosinophils # 0.1 K/mcL (0.0-0.6); Eosinophils % 1.3 %; Hematocrit 32.7 % (35.3-44.9); Hemoglobin 10.5 g/dL (11.5-15.4); Immature Granulocytes % 0.5 % (0-4); Lymphocytes # 1.7 K/mcL (0.6-4.6); Mean Corpuscular HGB Conc 32.1 g/dL (31.6-35.5); Mean Corpuscular Hemoglobin 28.8 pg (28.0-33.3); Mean Corpuscular Volume 89.8 fL (83.0-100.0); Monocytes # 0.5 K/mcL (0.0-1.3); Monocytes % 5.6 %; Neutrophils # 5.9 K/mcL (1.6-8.9); Platelet Count 205 K/mcL (140-400); Red Blood Count 3.64 M/mcL (3.82-4.97); Red Cell Distribution Width 13.7 % (11.5-14.5); White Blood Count 8.3 K/mcL (4.3-11.1)
[2020-03-11 18:07] LABS: BUN/Creatinine Ratio 17 (6-26); Blood Urea Nitrogen 19 mg/dL (6-20); Calcium 8.9 mg/dL (8.6-10.3); Carbon Dioxide 28 mEq/L (23-29); Chloride 100 mEq/L (98-107); Glucose 110 mg/dL (70-105); Osmolality,Calculated 289 (280-300); Potassium 3.5 mEq/L (3.5-5.1); Sodium 138 mEq/L (136-145); eGFR For African Americans > 60 (> 60); eGFR For Non-African Americans 54 (> 60)
[2020-03-11 18:08] LABS: Troponin I < 0.03 ng/mL (< 0.04)
[2020-03-11 18:25] LABS: Activated Partial Thrombo Time 31.2 Seconds (26.0-36.0); Prothrombin Time 11.4 Seconds (9.4-12.1)
[2020-03-11 20:31] LABS: Adenovirus Not Detected (Not Detect); Coronavirus 229E Not Detected (Not Detect); Coronavirus HKU1 Not Detected (Not Detect); Coronavirus NL63 Not Detected (Not Detect); Coronavirus OC43 Not Detected (Not Detect)
[2020-03-11 20:32] LABS: Bordetella Pertussis Not Detected (Not Detect); Chlamydophila pneumoniae Not Detected (Not Detect); Human Metapneumovirus Not Detected (Not Detect); Human Rhinovirus/Enterovirus Not Detected (Not Detect); Influenza A Subtype 2009 H1 Not Detected (Not Detect); Influenza B Not Detected (Not Detect); Mycoplasma pneumoniae Not Detected (Not Detect); Parainfluenza Virus 1 Not Detected (Not Detect); Parainfluenza Virus 2 Not Detected (Not Detect); Parainfluenza Virus 3 Not Detected (Not Detect); Parainfluenza Virus 4 Not Detected (Not Detect); Respiratory Syncytial Virus Not Detected (Not Detect)
[2020-03-11] MEDS ORDERED: Naloxone 0.4 MG/ML INJ IVP PRN ×2 (20:43→20:51)
[2020-03-11] MEDS ORDERED: Ondansetron ODT 4 MG TAB.RAPDIS SL PRN (20:43)
[2020-03-11] MEDS: Acetaminophen 325 MG TABLET PO PRN (22:25)
[2020-03-11 23:08] LABS: Bacteria,Urine Few per hpf (None-Few); Bilirubin,Urine Negative (Negative); Blood,Urine Large (Negative); Clarity,Urine Turbid (Clear); Color,Urine Yellow (Yellow); Glucose,Urine (UA) Normal (Normal); Ketones,Urine Negative (Negative); Leukocyte Esterase,Urine Moderate (Negative); Nitrite,Urine Negative (Negative); Protein,Urine 50 mg/dL (Neg-Trace); RBC,Urine TNTC per hpf (0-3); Specific Gravity,Urine 1.027 (1.010-1.025); Squamous Epithelial Cell,Urine Few per hpf (None-Few); Uric Acid Crystals,Urine Present; WBC,Urine 15-30 per hpf (0-3)
[2020-03-11] MEDS ORDERED: Ipratropium/Albuterol Neb 3 ML IH PRN (23:34)
[2020-03-12] MEDS ORDERED: cefTRIAXone 1,000 MG in Water for inj. (sterile) 10 ML IVP SCH
[2020-03-12] MEDS: *HR* Metoprolol 5 MG/5 ML VIAL IVP SCH ×2 (00:52→05:17)
[2020-03-12 05:02] LABS: INR 1.1
[2020-03-12 05:09] LABS: Hematocrit 32.9 % (35.3-44.9); Hemoglobin 10.5 g/dL (11.5-15.4); Mean Corpuscular HGB Conc 31.9 g/dL (31.6-35.5); Mean Corpuscular Hemoglobin 29.3 pg (28.0-33.3); Mean Corpuscular Volume 91.9 fL (83.0-100.0); Mean Platelet Volume 11.5 fL (9.4-12.4); Platelet Count 187 K/mcL (140-400); Red Blood Count 3.58 M/mcL (3.82-4.97); White Blood Count 6.5 K/mcL (4.3-11.1)
[2020-03-12 05:22] LABS: Chol/HDL Ratio 5.1 (0-4.9)
[2020-03-12 05:31] LABS: Alanine Aminotransferase 24 Units/L (7-52); Albumin 3.8 g/dL (3.5-5.7); Albumin/Globulin Ratio 1.4 (1.1-2.2); Alkaline Phosphatase 81 Units/L (34-104); Aspartate Amino Transferase 19 Units/L (13-39); BUN/Creatinine Ratio 17 (6-26); Bilirubin,Total 0.3 mg/dL (0.3-1.0); Blood Urea Nitrogen 21 mg/dL (6-20); Calcium 8.6 mg/dL (8.6-10.3); Carbon Dioxide 26 mEq/L (23-29); Chloride 100 mEq/L (98-107); Globulin 2.7 g/dL (2.4-3.5); Glucose 122 mg/dL (70-105); Magnesium 1.7 mg/dL (1.6-2.6); Osmolality,Calculated 290 (280-300); Phosphorous 3.9 mg/dL (2.7-4.5); Potassium 3.4 mEq/L (3.5-5.1); Sodium 138 mEq/L (136-145); Total Protein 6.5 g/dL (6.4-8.9); Troponin I < 0.03 ng/mL (< 0.04); eGFR For African Americans 57 (> 60); eGFR For Non-African Americans 47 (> 60)
[2020-03-12] MEDS ORDERED: *HR* Heparin 5,000 UNIT/ML VIAL SQ SCH (06:00)
[2020-03-12] MEDS ORDERED: clonazePAM 1 MG TABLET PO PRN (08:48)
[2020-03-12] MEDS ORDERED: Isosorbide MONOnitrate (24 HR) 30 MG TAB.ER.24H PO SCH (09:00)
[2020-03-12] MEDS ORDERED: Loratadine 10 MG TABLET PO SCH (09:00)
[2020-03-12] MEDS ORDERED: QUEtiapine Fumarate 100 MG TABLET PO SCH (09:00)
[2020-03-12] MEDS ORDERED: Fluticasone Propionate Nasal 50 MCG/SPRAY BOTTLE NS SCH (09:00)
[2020-03-12] MEDS ORDERED: Verapamil ER (24 HR) 180 MG TABLET.ER PO SCH (09:00)
[2020-03-12] MEDS ORDERED: 0.9 % Sodium Chloride 1,000 ML IVC SCH (09:00)
[2020-03-12] MEDS: Acetaminophen 325 MG TABLET PO PRN (10:57)
[2020-03-12] MEDS ORDERED: Gabapentin 300 MG CAPSULE PO SCH ×2 (12:00→20:00)
[2020-03-12 12:32] VITALS: BP 117/70
[2020-03-12 13:22] LABS: BUN/Creatinine Ratio 19 (6-26); Blood Urea Nitrogen 21 mg/dL (6-20); Calcium 8.8 mg/dL (8.6-10.3); Carbon Dioxide 28 mEq/L (23-29); Chloride 100 mEq/L (98-107); Glucose 103 mg/dL (70-105); Osmolality,Calculated 285 (280-300); Sodium 136 mEq/L (136-145); eGFR For African Americans > 60 (> 60); eGFR For Non-African Americans 54 (> 60)
[2020-03-12] MEDS ORDERED: Lurasidone 20 MG TABLET PO SCH (21:00)
[2020-03-13] MEDS ORDERED: Isosorbide MONOnitrate (24 HR) 30 MG TAB.ER.24H PO SCH (09:00)
[2020-03-13] MEDS ORDERED: Fluticasone Propionate Nasal 50 MCG/SPRAY BOTTLE NS SCH (09:00)
== END 2020-03-12 14:32 | disposition home health service (06) ==
LOC: EMEROOARM 16:49 → 3BNU 16:49 → SUATTDRO 20:36 → 3BNU 21:12
PROVIDERS: ADMIT Student in an Organized Health Care Education/Training Program; ATTEND Internal Medicine

== ENCOUNTER 2020-03-18 14:29 | Observation (INO) ==
[2020-03-18 15:20] LABS: Basophils % 0.6 %; Eosinophils # 0.1 K/mcL (0.0-0.6); Eosinophils % 1.7 %; Hematocrit 32.6 % (35.3-44.9); Hemoglobin 10.6 g/dL (11.5-15.4); Immature Granulocytes % 0.4 % (0-4); Lymphocytes # 1.5 K/mcL (0.6-4.6); Lymphocytes % 22.1 %; Mean Corpuscular HGB Conc 32.5 g/dL (31.6-35.5); Mean Corpuscular Hemoglobin 29.8 pg (28.0-33.3); Mean Corpuscular Volume 91.6 fL (83.0-100.0); Mean Platelet Volume 10.7 fL (9.4-12.4); Monocytes # 0.4 K/mcL (0.0-1.3); Monocytes % 5.6 %; Neutrophils # 4.8 K/mcL (1.6-8.9); Platelet Count 205 K/mcL (140-400); Red Blood Count 3.56 M/mcL (3.82-4.97); Red Cell Distribution Width 14.2 % (11.5-14.5); Segmented Neutrophils % 69.6 %; White Blood Count 6.9 K/mcL (4.3-11.1)
[2020-03-18] MEDS: Nitroglycerin 0.4 MG TAB.SUBL SL SCH ×3 (15:20→15:44)
[2020-03-18 15:47] LABS: BUN/Creatinine Ratio 17 (6-26); Blood Urea Nitrogen 18 mg/dL (6-20); Calcium 9.1 mg/dL (8.6-10.3); Carbon Dioxide 26 mEq/L (23-29); Chloride 102 mEq/L (98-107); Glucose 112 mg/dL (70-105); Osmolality,Calculated 289 (280-300); Potassium 3.8 mEq/L (3.5-5.1); Sodium 138 mEq/L (136-145); Troponin I < 0.03 ng/mL (< 0.04); eGFR For African Americans > 60 (> 60); eGFR For Non-African Americans 56 (> 60)
[2020-03-18] MEDS ORDERED: Mag Hydrox/Al Hydrox/Simeth 30 ML UDC PO PRN (17:27)
[2020-03-18] MEDS ORDERED: Ondansetron 4 MG/2 ML VIAL IVP PRN (17:27)
[2020-03-18] MEDS ORDERED: Naloxone 0.4 MG/ML INJ IVP PRN (17:27)
[2020-03-18] MEDS ORDERED: *HR* Promethazine 25 MG/ML VIAL IVP PRN (17:27)
[2020-03-18] MEDS ORDERED: MOM Conc 10 ML UD.LIQ PO PRN (17:27)
[2020-03-18] MEDS ORDERED: Melatonin 3 MG TABLET PO PRN (17:30)
[2020-03-18] MEDS ORDERED: clonazePAM 1 MG TABLET PO PRN (17:30)
[2020-03-18] MEDS: *HR* Heparin 5,000 UNIT/ML VIAL SQ SCH (19:09)
[2020-03-18] MEDS: QUEtiapine Fumarate 100 MG TABLET PO SCH (20:53)
[2020-03-18] MEDS: Gabapentin 300 MG CAPSULE PO SCH (20:54)
[2020-03-18] MEDS: Cyclosporine [Restasis] OP SCH (20:55)
[2020-03-18] MEDS ORDERED: Ipratropium/Albuterol Neb 3 ML IH PRN (21:11)
[2020-03-19 02:28] LABS: Basophils # 0.1 K/mcL (0.0-0.2); Basophils % 0.8 %; Eosinophils # 0.1 K/mcL (0.0-0.6); Eosinophils % 1.7 %; Hematocrit 30.9 % (35.3-44.9); Hemoglobin 10.1 g/dL (11.5-15.4); Immature Granulocytes % 0.6 % (0-4); Lymphocytes # 1.7 K/mcL (0.6-4.6); Lymphocytes % 26.3 %; Mean Corpuscular HGB Conc 32.7 g/dL (31.6-35.5); Mean Corpuscular Hemoglobin 29.8 pg (28.0-33.3); Mean Corpuscular Volume 91.2 fL (83.0-100.0); Mean Platelet Volume 10.9 fL (9.4-12.4); Monocytes # 0.4 K/mcL (0.0-1.3); Monocytes % 6.9 %; Platelet Count 192 K/mcL (140-400); Red Blood Count 3.39 M/mcL (3.82-4.97); Red Cell Distribution Width 14.3 % (11.5-14.5); Segmented Neutrophils % 63.7 %; White Blood Count 6.3 K/mcL (4.3-11.1)
[2020-03-19 02:47] LABS: Potassium 3.5 mEq/L (3.5-5.1)
[2020-03-19] MEDS: *HR* Heparin 5,000 UNIT/ML VIAL SQ SCH (05:01)
[2020-03-19] MEDS: QUEtiapine Fumarate 100 MG TABLET PO SCH (07:50)
[2020-03-19] MEDS: Cyclosporine [Restasis] OP SCH (07:50)
[2020-03-19] MEDS: Gabapentin 300 MG CAPSULE PO SCH (07:50)
[2020-03-19] MEDS ORDERED: Fluticasone Propionate Nasal 50 MCG/SPRAY BOTTLE NS SCH (09:00)
[2020-03-19] MEDS ORDERED: Isosorbide MONOnitrate (24 HR) 30 MG TAB.ER.24H PO SCH (09:00)
[2020-03-19] MEDS ORDERED: Loratadine 10 MG TABLET PO SCH (09:00)
[2020-03-19] MEDS ORDERED: Verapamil ER (24 HR) 180 MG TABLET.ER PO SCH (09:00)
[2020-03-19] MEDS ORDERED: 0.9 % Sodium Chloride 2,000 ML ONE (09:06)
[2020-03-19] MEDS ORDERED: Heparin 1,000 UNITS/500 mL 500 ML ONE (09:07)
[2020-03-19] MEDS ORDERED: Nitroglycerin 1,000 MCG/10 ML VIAL IV ONE (09:07)
[2020-03-19] MEDS ORDERED: ISOVUE-370 200 ML INFUS..BTL ONE (09:07)
[2020-03-19] MEDS ORDERED: *HR* Heparin 10,000 UNIT/10 ML VIAL ONE (09:07)
[2020-03-19] MEDS ORDERED: *HR* Midazolam HCl 2 MG/2 ML VIAL ONE (09:39)
[2020-03-19] MEDS ORDERED: *HR* FentaNYL (PF) 100 MCG/2 ML VIAL ONE (09:39)
[2020-03-19] MEDS ORDERED: 0.9 % Sodium Chloride 1,000 ML IVC SCH (10:15)
[2020-03-19 13:44] VITALS: BP 135/78
== END 2020-03-19 15:07 | disposition home or self-care (01) ==
LOC: EMEROOARM 14:29 → 3BNU 14:29
PROVIDERS: ADMIT Internal Medicine; ATTEND Internal Medicine

== ENCOUNTER 2020-09-03 18:37 | Observation (INO) ==
[2020-09-03] MEDS ORDERED: 0.9 % Sodium Chloride 1,000 ML IVC ONE (19:05)
[2020-09-03 19:22] LABS: Basophils # 0.1 K/mcL (0.0-0.2); Basophils % 0.9 %; Eosinophils # 0.1 K/mcL (0.0-0.6); Eosinophils % 1.4 %; Hematocrit 30.5 % (35.3-44.9); Hemoglobin 10.2 g/dL (11.5-15.4); Immature Granulocytes % 1.2 % (0-4); Lymphocytes # 1.6 K/mcL (0.6-4.6); Lymphocytes % 24.3 %; Mean Corpuscular HGB Conc 33.4 g/dL (31.6-35.5); Mean Corpuscular Hemoglobin 31.5 pg (28.0-33.3); Mean Corpuscular Volume 94.1 fL (83.0-100.0); Mean Platelet Volume 10.6 fL (9.4-12.4); Monocytes # 0.5 K/mcL (0.0-1.3); Neutrophils # 4.2 K/mcL (1.6-8.9); Nucleated Red Blood Cells 0.3 /100 WBC (0); Platelet Count 206 K/mcL (140-400); Red Blood Count 3.24 M/mcL (3.82-4.97); Red Cell Distribution Width 14.9 % (11.5-14.5); Segmented Neutrophils % 64.2 %; White Blood Count 6.5 K/mcL (4.3-11.1)
[2020-09-03 19:31] LABS: Bilirubin,Urine Negative (Negative); Blood,Urine Negative (Negative); Clarity,Urine Clear (Clear); Color,Urine Light-Yellow (Yellow); Glucose,Urine (UA) Normal (Normal); Ketones,Urine Negative (Negative); Leukocyte Esterase,Urine Negative (Negative); Nitrite,Urine Negative (Negative); Protein,Urine Negative (Neg-Trace); Specific Gravity,Urine 1.019 (1.010-1.025); Urobilinogen,Urine Normal (Normal)
[2020-09-03] MEDS ORDERED: *HR* FentaNYL (PF) 100 MCG/2 ML VIAL IVP ONE (19:36)
[2020-09-03 19:37] LABS: Alanine Aminotransferase 33 Units/L (7-52); Albumin 3.9 g/dL (3.5-5.7); Albumin/Globulin Ratio 1.3 (1.1-2.2); Alkaline Phosphatase 60 Units/L (34-104); Aspartate Amino Transferase 25 Units/L (13-39); BUN/Creatinine Ratio 27 (6-26); Bilirubin,Total 0.3 mg/dL (0.3-1.0); Blood Urea Nitrogen 29 mg/dL (6-20); Calcium 9.8 mg/dL (8.6-10.3); Carbon Dioxide 26 mEq/L (23-29); Chloride 100 mEq/L (98-107); Globulin 3.1 g/dL (2.4-3.5); Glucose 139 mg/dL (70-105); Magnesium 1.6 mg/dL (1.6-2.6); Osmolality,Calculated 292 (280-300); Potassium 3.9 mEq/L (3.5-5.1); Sodium 137 mEq/L (136-145); eGFR For African Americans > 60 (> 60); eGFR For Non-African Americans 57 (> 60)
[2020-09-03 19:56] LABS: C-Reactive Protein 30 mg/L (Less than 10)
[2020-09-03] MEDS: Gabapentin 300 MG CAPSULE PO SCH (22:49)
[2020-09-03] MEDS: clonazePAM 1 MG TABLET PO PRN (22:50)
[2020-09-03] MEDS: Cyclosporine [Restasis] OP SCH (23:31)
[2020-09-04 00:44] LABS: Hemoglobin 9.9 g/dL (11.5-15.4); Mean Corpuscular HGB Conc 34.1 g/dL (31.6-35.5); Mean Corpuscular Hemoglobin 31.7 pg (28.0-33.3); Mean Corpuscular Volume 92.9 fL (83.0-100.0); Mean Platelet Volume 10.9 fL (9.4-12.4); Platelet Count 205 K/mcL (140-400); Red Blood Count 3.12 M/mcL (3.82-4.97); Red Cell Distribution Width 15.1 % (11.5-14.5); White Blood Count 6.5 K/mcL (4.3-11.1)
[2020-09-04] MEDS: Nicotine 21 MG PATCH.TD24 TD SCH ×2 (00:44→08:18)
[2020-09-04 00:56] LABS: BUN/Creatinine Ratio 28 (6-26); Blood Urea Nitrogen 29 mg/dL (6-20); Calcium 9.3 mg/dL (8.6-10.3); Carbon Dioxide 22 mEq/L (23-29); Chloride 104 mEq/L (98-107); Creatine Kinase 57 Units/L (30-223); Glucose 152 mg/dL (70-105); Osmolality,Calculated 293 (280-300); Potassium 4.1 mEq/L (3.5-5.1); Sodium 137 mEq/L (136-145); eGFR For African Americans > 60 (> 60); eGFR For Non-African Americans 58 (> 60)
[2020-09-04] MEDS: *HR* Enoxaparin 40 MG/0.4 ML SYRINGE SQ SCH (05:21)
[2020-09-04] MEDS: Loratadine 10 MG TABLET PO SCH (08:18)
[2020-09-04] MEDS: hydroCHLOROthiazide 25 MG TABLET PO SCH (08:18)
[2020-09-04] MEDS: Gabapentin 300 MG CAPSULE PO SCH ×3 (08:19→19:50)
[2020-09-04] MEDS: Acetaminophen 325 MG TABLET PO PRN ×2 (08:19→15:31)
[2020-09-04] MEDS: Isosorbide MONOnitrate (24 HR) 30 MG TAB.ER.24H PO SCH (08:19)
[2020-09-04] MEDS: Cyclosporine [Restasis] OP SCH ×2 (08:22→19:50)
[2020-09-04] MEDS: Fluticasone Propionate Nasal 50 MCG/SPRAY BOTTLE NS SCH (09:02)
[2020-09-05] MEDS: *HR* Enoxaparin 40 MG/0.4 ML SYRINGE SQ SCH (01:40)
[2020-09-05] MEDS: Nicotine 21 MG PATCH.TD24 TD SCH (09:35)
[2020-09-05] MEDS: hydroCHLOROthiazide 25 MG TABLET PO SCH (09:35)
[2020-09-05] MEDS: Gabapentin 300 MG CAPSULE PO SCH ×3 (09:35→21:37)
[2020-09-05] MEDS: Isosorbide MONOnitrate (24 HR) 30 MG TAB.ER.24H PO SCH (09:36)
[2020-09-05] MEDS: Loratadine 10 MG TABLET PO SCH (09:36)
[2020-09-05] MEDS: Fluticasone Propionate Nasal 50 MCG/SPRAY BOTTLE NS SCH (09:37)
[2020-09-05] MEDS: Cyclosporine [Restasis] OP SCH ×2 (09:43→21:37)
[2020-09-05] MEDS: Acetaminophen 325 MG TABLET PO PRN ×2 (14:47→21:36)
[2020-09-06] MEDS: *HR* Enoxaparin 40 MG/0.4 ML SYRINGE SQ SCH (05:23)
[2020-09-06] MEDS: Nicotine 21 MG PATCH.TD24 TD SCH (09:31)
[2020-09-06] MEDS: hydroCHLOROthiazide 25 MG TABLET PO SCH (09:32)
[2020-09-06] MEDS: Isosorbide MONOnitrate (24 HR) 30 MG TAB.ER.24H PO SCH (09:33)
[2020-09-06] MEDS: Verapamil ER (24 HR) 180 MG TABLET.ER PO SCH (09:33)
[2020-09-06] MEDS: Loratadine 10 MG TABLET PO SCH (09:33)
[2020-09-06] MEDS: Gabapentin 300 MG CAPSULE PO SCH ×3 (09:34→21:06)
[2020-09-06 09:36] LABS: Hematocrit 32.6 % (35.3-44.9); Hemoglobin 10.8 g/dL (11.5-15.4); Mean Corpuscular HGB Conc 33.1 g/dL (31.6-35.5); Mean Corpuscular Volume 93.7 fL (83.0-100.0); Mean Platelet Volume 10.3 fL (9.4-12.4); Platelet Count 210 K/mcL (140-400); Red Blood Count 3.48 M/mcL (3.82-4.97); Red Cell Distribution Width 14.5 % (11.5-14.5); White Blood Count 5.8 K/mcL (4.3-11.1)
[2020-09-06] MEDS: Fluticasone Propionate Nasal 50 MCG/SPRAY BOTTLE NS SCH (09:36)
[2020-09-06] MEDS: Ondansetron 4 MG/2 ML VIAL IVP PRN ×2 (09:39→17:57)
[2020-09-06] MEDS: Acetaminophen 325 MG TABLET PO PRN ×2 (09:39→15:38)
[2020-09-06] MEDS: Cyclosporine [Restasis] OP SCH ×2 (09:43→21:06)
[2020-09-06 09:56] LABS: Alanine Aminotransferase 30 Units/L (7-52); Albumin/Globulin Ratio 1.2 (1.1-2.2); Alkaline Phosphatase 63 Units/L (34-104); Aspartate Amino Transferase 36 Units/L (13-39); BUN/Creatinine Ratio 27 (6-26); Bilirubin,Total 0.4 mg/dL (0.3-1.0); Blood Urea Nitrogen 28 mg/dL (6-20); Calcium 9.5 mg/dL (8.6-10.3); Carbon Dioxide 23 mEq/L (23-29); Chloride 100 mEq/L (98-107); Globulin 3.3 g/dL (2.4-3.5); Glucose 180 mg/dL (70-105); Osmolality,Calculated 290 (280-300); Potassium 4.2 mEq/L (3.5-5.1); Sodium 135 mEq/L (136-145); Total Protein 7.3 g/dL (6.4-8.9); eGFR For African Americans > 60 (> 60); eGFR For Non-African Americans 60 (> 60)
[2020-09-06] MEDS ORDERED: amLODIPine 5 MG TABLET PO SCH (15:30)
[2020-09-06] MEDS: Metoprolol XL (24 HR) Succ 25 MG TAB.ER.24H PO SCH (15:38)
[2020-09-06] MEDS: clonazePAM 1 MG TABLET PO PRN (17:29)
[2020-09-07] MEDS: *HR* Enoxaparin 40 MG/0.4 ML SYRINGE SQ SCH (05:37)
[2020-09-07 06:43] LABS: Hematocrit 31.1 % (35.3-44.9); Hemoglobin 10.1 g/dL (11.5-15.4); Mean Corpuscular HGB Conc 32.5 g/dL (31.6-35.5); Mean Corpuscular Hemoglobin 31.8 pg (28.0-33.3); Mean Corpuscular Volume 97.8 fL (83.0-100.0); Mean Platelet Volume 10.6 fL (9.4-12.4); Platelet Count 210 K/mcL (140-400); Red Blood Count 3.18 M/mcL (3.82-4.97); Red Cell Distribution Width 14.3 % (11.5-14.5); White Blood Count 5.7 K/mcL (4.3-11.1)
[2020-09-07 06:55] VITALS: BP 125/70
[2020-09-07 07:22] LABS: Alanine Aminotransferase 29 Units/L (7-52); Albumin 3.8 g/dL (3.5-5.7); Albumin/Globulin Ratio 1.2 (1.1-2.2); Alkaline Phosphatase 55 Units/L (34-104); Aspartate Amino Transferase 47 Units/L (13-39); BUN/Creatinine Ratio 30 (6-26); Bilirubin,Total 0.3 mg/dL (0.3-1.0); Blood Urea Nitrogen 33 mg/dL (6-20); Calcium 9.4 mg/dL (8.6-10.3); Carbon Dioxide 24 mEq/L (23-29); Chloride 101 mEq/L (98-107); Globulin 3.1 g/dL (2.4-3.5); Glucose 116 mg/dL (70-105); Osmolality,Calculated 288 (280-300); Potassium 4.4 mEq/L (3.5-5.1); Sodium 135 mEq/L (136-145); Total Protein 6.9 g/dL (6.4-8.9); eGFR For African Americans > 60 (> 60); eGFR For Non-African Americans 55 (> 60)
[2020-09-07] MEDS: Verapamil ER (24 HR) 180 MG TABLET.ER PO SCH (11:09)
[2020-09-07] MEDS: Loratadine 10 MG TABLET PO SCH (11:09)
[2020-09-07] MEDS: Metoprolol XL (24 HR) Succ 25 MG TAB.ER.24H PO SCH (11:09)
[2020-09-07] MEDS: hydroCHLOROthiazide 25 MG TABLET PO SCH (11:09)
[2020-09-07] MEDS: Gabapentin 300 MG CAPSULE PO SCH (11:09)
[2020-09-07] MEDS: Nicotine 21 MG PATCH.TD24 TD SCH (11:10)
[2020-09-07] MEDS: Fluticasone Propionate Nasal 50 MCG/SPRAY BOTTLE NS SCH (11:13)
== END 2020-09-07 14:57 | disposition home health service (06) ==
LOC: 3BNU 18:37 → EMEROOARM 18:37 → SUATTDRO 21:52 → 3BNU 22:25
PROVIDERS: ADMIT Internal Medicine; ATTEND Registered Nurse

== ENCOUNTER 2021-03-16 15:08 | Inpatient (IN) ==
[2021-03-16] MEDS ORDERED: methylPREDNISolone 125 MG/2 ML VIAL IVP ONE (15:39)
[2021-03-16] MEDS ORDERED: Ipratropium/Albuterol Neb 3 ML IH ONE ×2 (15:39→16:54)
[2021-03-16 15:48] LABS: Basophils # 0.1 K/mcL (0.0-0.2); Basophils % 0.7 %; Eosinophils # 0.2 K/mcL (0.0-0.6); Hematocrit 36.4 % (35.3-44.9); Immature Granulocytes % 0.4 % (0-4); Lymphocytes # 1.5 K/mcL (0.6-4.6); Lymphocytes % 18.3 %; Mean Corpuscular Hemoglobin 30.9 pg (28.0-33.3); Mean Corpuscular Volume 93.8 fL (83.0-100.0); Mean Platelet Volume 11.3 fL (9.4-12.4); Monocytes # 0.7 K/mcL (0.0-1.3); Monocytes % 8.2 %; Neutrophils # 5.7 K/mcL (1.6-8.9); Platelet Count 159 K/mcL (140-400); Red Blood Count 3.88 M/mcL (3.82-4.97); Segmented Neutrophils % 70.4 %; White Blood Count 8.1 K/mcL (4.3-11.1)
[2021-03-16 16:11] LABS: Alanine Aminotransferase 38 Units/L (7-52); Albumin 4.3 g/dL (3.5-5.7); Albumin/Globulin Ratio 1.3 (1.1-2.2); Alkaline Phosphatase 74 Units/L (34-104); Aspartate Amino Transferase 27 Units/L (13-39); BUN/Creatinine Ratio 14 (6-26); Bilirubin,Direct 0.1 mg/dL (0.0-0.2); Bilirubin,Indirect 0.4 mg/dL (0.0-1.0); Bilirubin,Total 0.5 mg/dL (0.3-1.0); Blood Urea Nitrogen 16 mg/dL (6-20); Calcium 9.3 mg/dL (8.6-10.3); Carbon Dioxide 25 mEq/L (23-29); Chloride 100 mEq/L (98-107); Globulin 3.2 g/dL (2.4-3.5); Glucose 113 mg/dL (70-105); Osmolality,Calculated 286 (280-300); Sodium 137 mEq/L (136-145); Total Protein 7.5 g/dL (6.4-8.9); eGFR For African Americans > 60 (> 60); eGFR For Non-African Americans 51 (> 60)
[2021-03-16 16:18] LABS: Troponin I < 0.03 ng/mL (< 0.04)
[2021-03-16] MEDS ORDERED: Isovue-370 500 ML BOTTLE IVP ONE (16:56)
[2021-03-16] MEDS ORDERED: Ondansetron 4 MG/2 ML VIAL IVP PRN (20:20)
[2021-03-16] MEDS ORDERED: Naloxone 0.4 MG/ML INJ IVP PRN (20:20)
[2021-03-16] MEDS ORDERED: *HR* Promethazine 25 MG/ML VIAL IM PRN (20:20)
[2021-03-16 20:40] LABS: Adenovirus Not Detected (Not Detect); Bordetella Pertussis Not Detected (Not Detect); Chlamydophila pneumoniae Not Detected (Not Detect); Coronavirus 229E Not Detected (Not Detect); Coronavirus HKU1 Not Detected (Not Detect); Coronavirus NL63 Not Detected (Not Detect); Coronavirus OC43 Not Detected (Not Detect); Human Metapneumovirus Not Detected (Not Detect); Human Rhinovirus/Enterovirus DETECTED (Not Detect); Influenza A Subtype 2009 H1 Not Detected (Not Detect); Influenza B Not Detected (Not Detect); Mycoplasma pneumoniae Not Detected (Not Detect); Parainfluenza Virus 1 Not Detected (Not Detect); Parainfluenza Virus 2 Not Detected (Not Detect); Parainfluenza Virus 3 Not Detected (Not Detect); Parainfluenza Virus 4 Not Detected (Not Detect); Respiratory Syncytial Virus Not Detected (Not Detect); SARS-CoV-2 Not Detected (Not Detect)
[2021-03-16] MEDS ORDERED: Ipratropium/Albuterol Neb 3 ML IH PRN (20:55)
[2021-03-16] MEDS ORDERED: *HR* Dextrose 50 % in Water (Vial) 50 ML VIAL IVP PRN (22:03)
[2021-03-16] MEDS ORDERED: Dextrose Gel 15 GM/37.5 ML TUBE PO PRN ×2 (22:03)
[2021-03-16] MEDS ORDERED: D5% in Water 1,000 ML IVC PRN (22:03)
[2021-03-16] MEDS: Benzonatate 100 MG CAPSULE PO PRN (22:33)
[2021-03-16] MEDS: Melatonin 3 MG TABLET PO PRN (22:33)
[2021-03-16] MEDS: Doxycycline 100 MG in 0.9 % Sodium Chloride Mini Bag 100 ML IVPB SCH (22:33)
[2021-03-16] MEDS: MethylPREDNISolone 40 MG/ML VIAL IVP SCH (22:39)
[2021-03-16] MEDS: cephALEXin 500 MG CAPSULE PO SCH (22:39)
[2021-03-16] MEDS ORDERED: clonazePAM 1 MG TABLET PO PRN (23:18)
[2021-03-16] MEDS: Ipratropium/Albuterol Neb 3 ML IH SCH (23:49)
[2021-03-17 00:15] LABS: Bacteria,Urine Few per hpf (None-Few); Bilirubin,Urine Negative (Negative); Blood,Urine Negative (Negative); Clarity,Urine Clear (Clear); Color,Urine Light-Yellow (Yellow); Glucose,Urine (UA) 70 mg/dL (Normal); Ketones,Urine 10 mg/dL (Negative); Leukocyte Esterase,Urine Negative (Negative); Nitrite,Urine Negative (Negative); Protein,Urine 70 mg/dL (Neg-Trace); RBC,Urine 0-3 per hpf (0-3); Specific Gravity,Urine > 1.030 (1.010-1.025); Squamous Epithelial Cell,Urine Few per hpf (None-Few); Urobilinogen,Urine Normal (Normal); WBC,Urine 0-3 per hpf (0-3)
[2021-03-17] MEDS: QUEtiapine Fumarate 100 MG TABLET PO SCH ×3 (00:28→21:53)
[2021-03-17] MEDS: Gabapentin 300 MG CAPSULE PO SCH ×4 (00:28→21:53)
[2021-03-17] MEDS: Lurasidone 20 MG TABLET PO SCH ×2 (00:29→21:53)
[2021-03-17] MEDS: Ipratropium/Albuterol Neb 3 ML IH SCH ×6 (04:11→23:50)
[2021-03-17 05:40] LABS: Basophils % 0.2 %; Eosinophils % 0.2 %; Hematocrit 39.1 % (35.3-44.9); Hemoglobin 12.7 g/dL (11.5-15.4); Immature Granulocytes % 0.9 % (0-4); Lymphocytes % 11.1 %; Mean Corpuscular HGB Conc 32.5 g/dL (31.6-35.5); Mean Corpuscular Hemoglobin 31.6 pg (28.0-33.3); Mean Corpuscular Volume 97.3 fL (83.0-100.0); Mean Platelet Volume 11.9 fL (9.4-12.4); Monocytes # 0.2 K/mcL (0.0-1.3); Monocytes % 2.8 %; Neutrophils # 7.3 K/mcL (1.6-8.9); Platelet Count 154 K/mcL (140-400); Red Blood Count 4.02 M/mcL (3.82-4.97); Red Cell Distribution Width 12.6 % (11.5-14.5); Segmented Neutrophils % 84.8 %; White Blood Count 8.6 K/mcL (4.3-11.1)
[2021-03-17 05:45] LABS: INR 1.1; Prothrombin Time 12.9 Seconds (9.4-12.1)
[2021-03-17 06:01] LABS: Alanine Aminotransferase 36 Units/L (7-52); Albumin 4.3 g/dL (3.5-5.7); Albumin/Globulin Ratio 1.3 (1.1-2.2); Alkaline Phosphatase 73 Units/L (34-104); Aspartate Amino Transferase 25 Units/L (13-39); BUN/Creatinine Ratio 16 (6-26); Bilirubin,Total 0.4 mg/dL (0.3-1.0); Blood Urea Nitrogen 17 mg/dL (6-20); Calcium 9.4 mg/dL (8.6-10.3); Carbon Dioxide 23 mEq/L (23-29); Chloride 100 mEq/L (98-107); Globulin 3.3 g/dL (2.4-3.5); Glucose 212 mg/dL (70-105); Magnesium 1.7 mg/dL (1.6-2.6); Osmolality,Calculated 290 (280-300); Phosphorous 2.5 mg/dL (2.7-4.5); Potassium 4.1 mEq/L (3.5-5.1); Sodium 136 mEq/L (136-145); Total Protein 7.6 g/dL (6.4-8.9); eGFR For African Americans > 60 (> 60); eGFR For Non-African Americans 56 (> 60)
[2021-03-17] MEDS: Doxycycline 100 MG in 0.9 % Sodium Chloride Mini Bag 100 ML IVPB SCH ×2 (06:28→16:53)
[2021-03-17] MEDS: Benzonatate 100 MG CAPSULE PO PRN ×3 (06:33→21:54)
[2021-03-17] MEDS: *HR* Enoxaparin 40 MG/0.4 ML SYRINGE SQ SCH (06:34)
[2021-03-17] MEDS: Insulin LISPRO 300 UNITS/3 ML VIAL SUBQ SCH ×4 (09:52→21:52)
[2021-03-17] MEDS: MethylPREDNISolone 40 MG/ML VIAL IVP SCH ×2 (09:53→16:53)
[2021-03-17] MEDS: cephALEXin 500 MG CAPSULE PO SCH ×2 (09:55→21:53)
[2021-03-17] MEDS: Acetaminophen 325 MG TABLET PO PRN (16:52)
[2021-03-17] MEDS: (Diclofenac Sodium [Voltaren] 100 GM Gel..Gram.) TP SCH ×2 (16:54→21:54)
[2021-03-17] MEDS: Cyprohepatdine 4 MG TABLET PO SCH (21:52)
[2021-03-17] MEDS: TETRABENAZINE 25 MG PO SCH (21:54)
[2021-03-17] MEDS: Melatonin 3 MG TABLET PO PRN (21:54)
[2021-03-18] MEDS: MethylPREDNISolone 40 MG/ML VIAL IVP SCH ×4 (00:38→23:36)
[2021-03-18] MEDS: Ipratropium/Albuterol Neb 3 ML IH SCH ×5 (03:30→20:21)
[2021-03-18] MEDS: Doxycycline 100 MG in 0.9 % Sodium Chloride Mini Bag 100 ML IVPB SCH ×2 (05:18→16:42)
[2021-03-18] MEDS: Acetaminophen 325 MG TABLET PO PRN ×2 (05:18→21:57)
[2021-03-18] MEDS: *HR* Enoxaparin 40 MG/0.4 ML SYRINGE SQ SCH (05:18)
[2021-03-18 06:21] LABS: Hematocrit 35.2 % (35.3-44.9); Hemoglobin 11.6 g/dL (11.5-15.4); Mean Corpuscular Hemoglobin 32.1 pg (28.0-33.3); Mean Corpuscular Volume 97.5 fL (83.0-100.0); Mean Platelet Volume 12.7 fL (9.4-12.4); Platelet Count 105 K/mcL (140-400); Red Blood Count 3.61 M/mcL (3.82-4.97); Red Cell Distribution Width 12.9 % (11.5-14.5); White Blood Count 9.6 K/mcL (4.3-11.1)
[2021-03-18 07:09] LABS: BUN/Creatinine Ratio 21 (6-26); Blood Urea Nitrogen 25 mg/dL (6-20); Calcium 8.9 mg/dL (8.6-10.3); Carbon Dioxide 18 mEq/L (23-29); Chloride 101 mEq/L (98-107); Glucose 224 mg/dL (70-105); Osmolality,Calculated 289 (280-300); Potassium 4.4 mEq/L (3.5-5.1); Sodium 134 mEq/L (136-145); eGFR For African Americans > 60 (> 60); eGFR For Non-African Americans 50 (> 60)
[2021-03-18] MEDS: Insulin LISPRO 300 UNITS/3 ML VIAL SUBQ SCH ×4 (09:03→22:00)
[2021-03-18] MEDS: Gabapentin 300 MG CAPSULE PO SCH ×3 (09:04→21:57)
[2021-03-18] MEDS: Loratadine 10 MG TABLET PO SCH (09:05)
[2021-03-18] MEDS: Verapamil ER (24 HR) 180 MG TABLET.ER PO SCH (09:05)
[2021-03-18] MEDS: cephALEXin 500 MG CAPSULE PO SCH ×2 (09:05→21:59)
[2021-03-18] MEDS: hydroCHLOROthiazide 25 MG TABLET PO SCH (09:06)
[2021-03-18] MEDS: Metoprolol XL (24 HR) Succ 50 MG TAB.ER.24H PO SCH (09:06)
[2021-03-18] MEDS: Cyprohepatdine 4 MG TABLET PO SCH ×2 (09:06→21:58)
[2021-03-18] MEDS: QUEtiapine Fumarate 100 MG TABLET PO SCH ×2 (09:06→21:58)
[2021-03-18] MEDS: Cyanocobalamin (B-12) 1,000 MCG TABLET PO SCH (09:07)
[2021-03-18] MEDS: (Cyclosporine [Restasis] 1 EACH Droperette) OP SCH (09:13)
[2021-03-18] MEDS: (Diclofenac Sodium [Voltaren] 100 GM Gel..Gram.) TP SCH ×4 (09:13→22:01)
[2021-03-18] MEDS: TETRABENAZINE 25 MG PO SCH ×2 (09:13→22:01)
[2021-03-18] MEDS: Benzonatate 100 MG CAPSULE PO PRN ×2 (09:15→16:44)
[2021-03-18] MEDS: Lurasidone 20 MG TABLET PO SCH (21:58)
[2021-03-18] MEDS: Melatonin 3 MG TABLET PO PRN (22:08)
[2021-03-19] MEDS: Ipratropium/Albuterol Neb 3 ML IH SCH ×4 (00:04→11:39)
[2021-03-19] MEDS: *HR* Enoxaparin 40 MG/0.4 ML SYRINGE SQ SCH (06:29)
[2021-03-19] MEDS: Doxycycline 100 MG in 0.9 % Sodium Chloride Mini Bag 100 ML IVPB SCH (06:29)
[2021-03-19 06:46] LABS: Hematocrit 33.3 % (35.3-44.9); Hemoglobin 10.9 g/dL (11.5-15.4); Mean Corpuscular HGB Conc 32.7 g/dL (31.6-35.5); Mean Corpuscular Volume 94.6 fL (83.0-100.0); Mean Platelet Volume 11.8 fL (9.4-12.4); Platelet Count 164 K/mcL (140-400); Red Blood Count 3.52 M/mcL (3.82-4.97); Red Cell Distribution Width 12.7 % (11.5-14.5); White Blood Count 7.9 K/mcL (4.3-11.1)
[2021-03-19 06:51] LABS: BUN/Creatinine Ratio 30 (6-26); Blood Urea Nitrogen 33 mg/dL (6-20); Calcium 9.4 mg/dL (8.6-10.3); Carbon Dioxide 27 mEq/L (23-29); Chloride 99 mEq/L (98-107); Glucose 213 mg/dL (70-105); Osmolality,Calculated 296 (280-300); Potassium 4.3 mEq/L (3.5-5.1); Sodium 136 mEq/L (136-145); eGFR For African Americans > 60 (> 60); eGFR For Non-African Americans 54 (> 60)
[2021-03-19 07:26] VITALS: BP 145/65; PULSE 58; TEMP 98
[2021-03-19] MEDS: Acetaminophen 325 MG TABLET PO PRN (08:22)
[2021-03-19] MEDS: Gabapentin 300 MG CAPSULE PO SCH (08:22)
[2021-03-19] MEDS: Cyanocobalamin (B-12) 1,000 MCG TABLET PO SCH (08:22)
[2021-03-19] MEDS: Loratadine 10 MG TABLET PO SCH (08:22)
[2021-03-19] MEDS: Metoprolol XL (24 HR) Succ 50 MG TAB.ER.24H PO SCH (08:22)
[2021-03-19] MEDS: QUEtiapine Fumarate 100 MG TABLET PO SCH (08:26)
[2021-03-19] MEDS: hydroCHLOROthiazide 25 MG TABLET PO SCH (08:26)
[2021-03-19] MEDS: Cyprohepatdine 4 MG TABLET PO SCH (08:26)
[2021-03-19] MEDS: MethylPREDNISolone 40 MG/ML VIAL IVP SCH (08:26)
[2021-03-19] MEDS: Verapamil ER (24 HR) 180 MG TABLET.ER PO SCH (08:26)
[2021-03-19] MEDS: TETRABENAZINE 25 MG PO SCH (08:27)
[2021-03-19] MEDS: (Cyclosporine [Restasis] 1 EACH Droperette) OP SCH (08:27)
[2021-03-19] MEDS: (Diclofenac Sodium [Voltaren] 100 GM Gel..Gram.) TP SCH (08:27)
[2021-03-19] MEDS: Insulin LISPRO 300 UNITS/3 ML VIAL SUBQ SCH (08:28)
[2021-03-19 08:49] VITALS: O2SAT 94
== END 2021-03-19 12:12 | disposition home health service (06) | DRG 193 ==
LOC: CDU 15:08 → EMEROOARM 15:08 → SUATTDRO 19:54 → CDU 21:01
PROVIDERS: ADMIT Internal Medicine; ATTEND Family Medicine

== ENCOUNTER 2021-04-06 14:51 | Inpatient (IN) ==
[2021-04-06 20:46] LABS: Bacteria,Urine Few per hpf (None-Few); Bilirubin,Urine Negative (Negative); Blood,Urine Large (Negative); Clarity,Urine Turbid (Clear); Color,Urine Light-Orange (Yellow); Glucose,Urine (UA) Normal (Normal); Ketones,Urine Negative (Negative); Leukocyte Esterase,Urine Large (Negative); Mucus,Urine Few per lpf (None-Few); Nitrite,Urine Positive (Negative); Protein,Urine 100 mg/dL (Neg-Trace); RBC,Urine TNTC per hpf (0-3); Specific Gravity,Urine 1.016 (1.010-1.025); Squamous Epithelial Cell,Urine Moderate per hpf (None-Few); Urobilinogen,Urine Normal (Normal); WBC,Urine TNTC per hpf (0-3)
[2021-04-06 20:48] LABS: Basophils % 0.2 %; Eosinophils # 0.1 K/mcL (0.0-0.6); Eosinophils % 1.1 %; Hematocrit 33.4 % (35.3-44.9); Hemoglobin 11.1 g/dL (11.5-15.4); Immature Granulocytes % 0.5 % (0-4); Lymphocytes # 1.4 K/mcL (0.6-4.6); Lymphocytes % 14.9 %; Mean Corpuscular HGB Conc 33.2 g/dL (31.6-35.5); Mean Corpuscular Hemoglobin 30.7 pg (28.0-33.3); Mean Corpuscular Volume 92.5 fL (83.0-100.0); Mean Platelet Volume 12.1 fL (9.4-12.4); Monocytes # 0.7 K/mcL (0.0-1.3); Monocytes % 7.9 %; Nucleated Red Blood Cells 0.2 /100 WBC (0); Platelet Count 134 K/mcL (140-400); Red Blood Count 3.61 M/mcL (3.82-4.97); Red Cell Distribution Width 13.2 % (11.5-14.5); Segmented Neutrophils % 75.4 %; White Blood Count 9.3 K/mcL (4.3-11.1)
[2021-04-06 20:56] LABS: Alanine Aminotransferase 33 Units/L (7-52); Albumin 4.2 g/dL (3.5-5.7); Albumin/Globulin Ratio 1.4 (1.1-2.2); Alkaline Phosphatase 63 Units/L (34-104); Aspartate Amino Transferase 20 Units/L (13-39); BUN/Creatinine Ratio 12 (6-26); Bilirubin,Total 0.9 mg/dL (0.3-1.0); Blood Urea Nitrogen 16 mg/dL (6-20); Calcium 9.1 mg/dL (8.6-10.3); Carbon Dioxide 28 mEq/L (23-29); Chloride 98 mEq/L (98-107); Globulin 2.9 g/dL (2.4-3.5); Glucose 142 mg/dL (70-105); Lipase 32 Units/L (11-82); Osmolality,Calculated 286 (280-300); Potassium 3.5 mEq/L (3.5-5.1); Sodium 136 mEq/L (136-145); Total Protein 7.1 g/dL (6.4-8.9); Troponin I < 0.03 ng/mL (< 0.04); eGFR For African Americans 52 (> 60); eGFR For Non-African Americans 43 (> 60)
[2021-04-06 20:57] LABS: INR 1.2; Prothrombin Time 13.3 Seconds (9.4-12.1)
[2021-04-06 21:00] LABS: Activated Partial Thrombo Time 28.4 Seconds (26.0-36.0)
[2021-04-06 21:05] LABS: Influenza A PCR Negative (Negative); Influenza B PCR Negative (Negative); Resp. Syncytial Virus PCR Negative (Negative)
[2021-04-06 21:06] LABS: SARS-CoV-2 by PCR (In House) Negative (Negative)
[2021-04-06] MEDS ORDERED: Isovue-370 500 ML BOTTLE IVP ONE ×2 (22:15)
[2021-04-06] MEDS ORDERED: 0.9 % Sodium Chloride 500 ML IVC ONE (22:16)
[2021-04-06] MEDS ORDERED: cefTRIAXone 1,000 MG in 0.9 % Sodium Chloride Mini Bag 100 ML IVPB ONE (22:17)
[2021-04-07] MEDS ORDERED: *HR* Heparin 5,000 UNIT/ML VIAL IVP ONE (06:57)
[2021-04-07] MEDS ORDERED: *HR* Heparin 5,000 UNIT/ML VIAL IVP PRN ×2 (06:57)
[2021-04-07 07:31] LABS: INR 1.3
[2021-04-07 07:35] LABS: Heparin anti-factor XA UFH < 0.04 IU/mL (0.30-0.70)
[2021-04-07] MEDS: Heparin 25,000UNIT/250ML 1/2NS 25,000 UNIT/250 ML IV.SOLN IVC SCH ×2 (07:43→19:44)
[2021-04-07 08:16] LABS: Hematocrit 31.6 % (35.3-44.9); Hemoglobin 10.8 g/dL (11.5-15.4); Mean Corpuscular HGB Conc 34.2 g/dL (31.6-35.5); Mean Corpuscular Hemoglobin 31.3 pg (28.0-33.3); Mean Corpuscular Volume 91.6 fL (83.0-100.0); Mean Platelet Volume 12.4 fL (9.4-12.4); Platelet Count 130 K/mcL (140-400); Red Blood Count 3.45 M/mcL (3.82-4.97); Red Cell Distribution Width 13.2 % (11.5-14.5); White Blood Count 9.9 K/mcL (4.3-11.1)
[2021-04-07] MEDS ORDERED: Naloxone 0.4 MG/ML INJ IVP PRN (09:56)
[2021-04-07] MEDS ORDERED: Perflutren Lipid Microsphere 1.3 ML in 0.9 % Sodium Chloride 8.7 ML IVP PRN (10:01)
[2021-04-07] MEDS: MethylPREDNISolone 40 MG/ML VIAL IVP SCH ×3 (11:21→23:23)
[2021-04-07] MEDS: cefTRIAXone 1,000 MG in Water for inj. (sterile) 10 ML IVP SCH (11:22)
[2021-04-07] MEDS: Ondansetron 4 MG/2 ML VIAL IVP PRN (11:47)
[2021-04-07] MEDS ORDERED: 0.9 % Sodium Chloride 2,000 ML IVC SCH (12:15)
[2021-04-07] MEDS: Ipratropium/Albuterol Neb 3 ML IH SCH ×2 (15:45→21:18)
[2021-04-07] MEDS: 0.9 % Sodium Chloride 1,000 ML IVC SCH (17:16)
[2021-04-07] MEDS: QUEtiapine Fumarate 100 MG TABLET PO SCH (19:51)
[2021-04-07] MEDS: Acetaminophen 325 MG TABLET PO PRN (21:08)
[2021-04-08 02:39] LABS: Albumin 4.1 g/dL (3.5-5.7); Albumin/Globulin Ratio 1.2 (1.1-2.2); Bilirubin,Total 0.4 mg/dL (0.3-1.0); Calcium 8.5 mg/dL (8.6-10.3); Globulin 3.3 g/dL (2.4-3.5); Potassium 3.6 mEq/L (3.5-5.1); Total Protein 7.4 g/dL (6.4-8.9)
[2021-04-08] MEDS: Ondansetron 4 MG/2 ML VIAL IVP PRN ×2 (02:59→09:39)
[2021-04-08 03:00] LABS: Basophils % 0.1 %; Hematocrit 31.7 % (35.3-44.9); Hemoglobin 10.8 g/dL (11.5-15.4); Immature Granulocytes % 0.4 % (0-4); Lymphocytes # 0.7 K/mcL (0.6-4.6); Lymphocytes % 8.8 %; Mean Corpuscular HGB Conc 34.1 g/dL (31.6-35.5); Mean Corpuscular Hemoglobin 31.4 pg (28.0-33.3); Mean Corpuscular Volume 92.2 fL (83.0-100.0); Mean Platelet Volume 12.2 fL (9.4-12.4); Monocytes # 0.4 K/mcL (0.0-1.3); Monocytes % 5.2 %; Neutrophils # 7.1 K/mcL (1.6-8.9); Platelet Count 133 K/mcL (140-400); Red Blood Count 3.44 M/mcL (3.82-4.97); Red Cell Distribution Width 13.1 % (11.5-14.5); Segmented Neutrophils % 85.5 %; White Blood Count 8.3 K/mcL (4.3-11.1)
[2021-04-08] MEDS: 0.9 % Sodium Chloride 1,000 ML IVC SCH ×2 (03:04→16:58)
[2021-04-08] MEDS: Ipratropium/Albuterol Neb 3 ML IH SCH ×4 (04:16→21:57)
[2021-04-08] MEDS: MethylPREDNISolone 40 MG/ML VIAL IVP SCH ×3 (05:58→16:58)
[2021-04-08] MEDS: Heparin 25,000UNIT/250ML 1/2NS 25,000 UNIT/250 ML IV.SOLN IVC SCH ×2 (07:19→21:27)
[2021-04-08] MEDS: Acetaminophen 325 MG TABLET PO PRN ×2 (09:36→21:12)
[2021-04-08] MEDS: Verapamil ER (24 HR) 180 MG TABLET.ER PO SCH (09:37)
[2021-04-08] MEDS: QUEtiapine Fumarate 100 MG TABLET PO SCH ×2 (09:37→21:12)
[2021-04-08] MEDS: cefTRIAXone 1,000 MG in Water for inj. (sterile) 10 ML IVP SCH (09:38)
[2021-04-08] MEDS ORDERED: Dextrose Gel 15 GM/37.5 ML TUBE PO PRN ×2 (10:41)
[2021-04-08] MEDS ORDERED: *HR* Dextrose 50 % in Water (Syg) 50 ML SYRINGE IVP PRN (10:41)
[2021-04-08] MEDS ORDERED: D5% in Water 1,000 ML IVC PRN (10:41)
[2021-04-08] MEDS: clonazePAM 1 MG TABLET PO PRN ×2 (11:37→21:12)
[2021-04-08 12:07] LABS: mecA Methicillin-Resist Gene DETECTED (Not Detect)
[2021-04-08 12:08] LABS: Acinetobacter baumannii by PCR Not Detected (Not Detect); Candida albicans by PCR Not Detected (Not Detect); Candida glabrata by PCR Not Detected (Not Detect); Candida krusei by PCR Not Detected (Not Detect); Candida parapsilosis by PCR Not Detected (Not Detect); Candida tropicalis by PCR Not Detected (Not Detect); Enterobacter cloacae Cmplx PCR Not Detected (Not Detect); Enterobacteriaceae by PCR Not Detected (Not Detect); Enterococcus by PCR Not Detected (Not Detect); Escherichia coli by PCR Not Detected (Not Detect); Klebsiella oxytoca by PCR Not Detected (Not Detect); Klebsiella pneumoniae by PCR Not Detected (Not Detect); Proteus by PCR Not Detected (Not Detect); Pseudomonas aeruginosa by PCR Not Detected (Not Detect); Serratia marcescens by PCR Not Detected (Not Detect); Staphylococcus aureus by PCR Not Detected (Not Detect); Staphylococcus by PCR DETECTED (Not Detect); Streptococcus agalactiae(B)PCR Not Detected (Not Detect); Streptococcus by PCR Not Detected (Not Detect); Streptococcus pneumoniae PCR Not Detected (Not Detect); Streptococcus pyogenes (A) PCR Not Detected (Not Detect)
[2021-04-08] MEDS: Insulin LISPRO 300 UNITS/3 ML VIAL SUBQ SCH ×2 (12:27→17:00)
[2021-04-08] MEDS: Metoprolol XL (24 HR) Succ 50 MG TAB.ER.24H PO SCH (12:28)
[2021-04-08] MEDS ORDERED: Insulin LISPRO 300 UNITS/3 ML VIAL SUBQ SCH (21:00)
[2021-04-09] MEDS: 0.9 % Sodium Chloride 1,000 ML IVC SCH (04:07)
[2021-04-09] MEDS: Ipratropium/Albuterol Neb 3 ML IH SCH ×4 (04:12→20:26)
[2021-04-09 04:48] LABS: Basophils % 0.1 %; Hematocrit 31.2 % (35.3-44.9); Hemoglobin 10.3 g/dL (11.5-15.4); Immature Granulocytes % 0.7 % (0-4); Lymphocytes # 0.8 K/mcL (0.6-4.6); Lymphocytes % 9.6 %; Mean Corpuscular Hemoglobin 30.7 pg (28.0-33.3); Mean Corpuscular Volume 92.9 fL (83.0-100.0); Mean Platelet Volume 12.3 fL (9.4-12.4); Monocytes # 0.6 K/mcL (0.0-1.3); Monocytes % 6.7 %; Neutrophils # 6.8 K/mcL (1.6-8.9); Platelet Count 168 K/mcL (140-400); Red Blood Count 3.36 M/mcL (3.82-4.97); Red Cell Distribution Width 13.1 % (11.5-14.5); Segmented Neutrophils % 82.9 %; White Blood Count 8.3 K/mcL (4.3-11.1)
[2021-04-09 05:01] LABS: INR 1.1; Prothrombin Time 12.7 Seconds (9.4-12.1)
[2021-04-09 05:03] LABS: Alanine Aminotransferase 21 Units/L (7-52); Albumin 3.7 g/dL (3.5-5.7); Albumin/Globulin Ratio 1.1 (1.1-2.2); Alkaline Phosphatase 53 Units/L (34-104); Aspartate Amino Transferase 13 Units/L (13-39); BUN/Creatinine Ratio 25 (6-26); Bilirubin,Total 0.3 mg/dL (0.3-1.0); Blood Urea Nitrogen 26 mg/dL (6-20); Calcium 8.3 mg/dL (8.6-10.3); Carbon Dioxide 23 mEq/L (23-29); Chloride 104 mEq/L (98-107); Globulin 3.3 g/dL (2.4-3.5); Glucose 283 mg/dL (70-105); Osmolality,Calculated 299 (280-300); Potassium 3.5 mEq/L (3.5-5.1); Sodium 137 mEq/L (136-145); eGFR For African Americans > 60 (> 60); eGFR For Non-African Americans 57 (> 60)
[2021-04-09] MEDS: MethylPREDNISolone 40 MG/ML VIAL IVP SCH ×4 (06:11→17:49)
[2021-04-09] MEDS ORDERED: Insulin LISPRO 300 UNITS/3 ML VIAL SUBQ SCH (08:45)
[2021-04-09] MEDS: Metoprolol XL (24 HR) Succ 50 MG TAB.ER.24H PO SCH (08:52)
[2021-04-09] MEDS: Verapamil ER (24 HR) 180 MG TABLET.ER PO SCH (08:52)
[2021-04-09] MEDS: Acetaminophen 325 MG TABLET PO PRN ×2 (08:52→21:12)
[2021-04-09] MEDS: QUEtiapine Fumarate 100 MG TABLET PO SCH ×2 (08:52→21:12)
[2021-04-09] MEDS: clonazePAM 1 MG TABLET PO PRN ×2 (08:53→21:12)
[2021-04-09] MEDS: cefTRIAXone 1,000 MG in Water for inj. (sterile) 10 ML IVP SCH (08:53)
[2021-04-09] MEDS: Heparin 25,000UNIT/250ML 1/2NS 25,000 UNIT/250 ML IV.SOLN IVC SCH (08:54)
[2021-04-09] MEDS: Lurasidone 20 MG TABLET PO SCH (11:01)
[2021-04-09] MEDS: Insulin LISPRO 300 UNITS/3 ML VIAL SUBQ SCH ×3 (12:15→18:03)
[2021-04-09] MEDS: *HR* Rivaroxaban 15 MG TABLET PO SCH (17:49)
[2021-04-09] MEDS ORDERED: *HR* Rivaroxaban 15 MG TABLET PO SCH (21:00)
[2021-04-09] MEDS: TETRABENAZINE 25 MG PO SCH (21:19)
[2021-04-10] MEDS: MethylPREDNISolone 40 MG/ML VIAL IVP SCH ×2 (00:18→05:35)
[2021-04-10 01:30] LABS: BUN/Creatinine Ratio 27 (6-26); Blood Urea Nitrogen 30 mg/dL (6-20); Calcium 8.2 mg/dL (8.6-10.3); Carbon Dioxide 20 mEq/L (23-29); Chloride 101 mEq/L (98-107); Glucose 280 mg/dL (70-105); Osmolality,Calculated 298 (280-300); Potassium 3.7 mEq/L (3.5-5.1); Sodium 136 mEq/L (136-145); eGFR For African Americans > 60 (> 60); eGFR For Non-African Americans 54 (> 60)
[2021-04-10 01:37] LABS: INR 1.8; Prothrombin Time 19.6 Seconds (9.4-12.1)
[2021-04-10] MEDS: Gabapentin 300 MG CAPSULE PO SCH ×2 (01:41→09:34)
[2021-04-10] MEDS: Ipratropium/Albuterol Neb 3 ML IH SCH ×2 (03:31→10:39)
[2021-04-10 04:30] VITALS: TEMP 98.1
[2021-04-10 07:24] VITALS: BP 170/82; PULSE 79
[2021-04-10] MEDS: clonazePAM 1 MG TABLET PO PRN (09:33)
[2021-04-10] MEDS: Metoprolol XL (24 HR) Succ 50 MG TAB.ER.24H PO SCH (09:33)
[2021-04-10] MEDS: Verapamil ER (24 HR) 180 MG TABLET.ER PO SCH (09:33)
[2021-04-10] MEDS: QUEtiapine Fumarate 100 MG TABLET PO SCH (09:33)
[2021-04-10] MEDS: *HR* Rivaroxaban 15 MG TABLET PO SCH (09:34)
[2021-04-10] MEDS: Insulin LISPRO 300 UNITS/3 ML VIAL SUBQ SCH (09:34)
[2021-04-10] MEDS: Acetaminophen 325 MG TABLET PO PRN (09:34)
[2021-04-10] MEDS: Lurasidone 20 MG TABLET PO SCH (09:40)
[2021-04-10] MEDS: TETRABENAZINE 25 MG PO SCH (09:42)
[2021-04-10 10:41] VITALS: O2SAT 95
== END 2021-04-10 11:59 | disposition home or self-care (01) | DRG 871 ==
LOC: 2ANU 14:51 → EMEROOARM 14:51 → SUATTDRO 04-07 07:48 → 2ANU 04-07 08:54
PROVIDERS: ADMIT General Practice; ATTEND Student in an Organized Health Care Education/Training Program